=== PATIENT | male | born 1955 | race Caucasian/White ===

== ENCOUNTER 2020-07-18 10:22 | Emergency (ER) | payer BC, MEDICARE, SELFPAY ==
[2020-07-18 10:45] VITALS: BP 116/79; PULSE 86; RESP 16; TEMP 36.4; O2SAT 97; BMI 31.4
--- NOTE | 2020-07-18 10:58 | HMH.EDUTC ---
[facility] [place] Disposition Clinical Impression: Exposure to COVID-19 virus Disposition: Home, Self-Care Condition on Discharge: Good Instructions: Preventing the Spread of Coronavirus Discharge Instructions Additional Instructions: Drink plenty of fluids. Take tylenol or ibuprofen for pain or fever. Follow up with your regular doctor. GO TO THE ER FOR ANY WORSENING SYMPTOMS FOLLOW THE DIRECTIONS ON THE COVID-19 HAND OUT THAT WE GAVE YOU REGARDING SELF-ISOLATION UNTIL YOU KNOW YOUR COVID-19 RESULTS Referrals: Cristopher Gray [Primary Care Provider] - Time of Disposition: 11:03 Medical Decision Making - Medical Records Medical records reviewed: No: I reviewed the patient's medical records. - Jayant Inquiry Pt receiving controlled substance: No Vital Signs: 07/18/20 10:45 07/18/20 11:05 Temperature 97.6 F 97.6 F Temperature Source Oral Pulse Rate 86 Pulse Rate [Right Brachial] 86 Respiratory Rate 16 16 Blood Pressure 116/79 Blood Pressure [Right Arm] 116/79 Blood Pressure Mean [Right Arm] 91 Blood Pressure Source [Right Arm] Automatic Cuff Blood Pressure Position [Right Arm] Sitting 02 Sat by Pulse Oximetry 97 Oxygen Delivery Method Room Air [facility] [place] HPI - General Stated complaint: covid exposure Time Seen by Provider: 07/18/20 10:55 Mode of Arrival: Ambulatory Source of Information: Patient Limitations: No Limitations Description of Symptoms (Recalled from Triage Doc. 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 He denies any symptoms other than a cough that he has had for several weeks. His pcp is treating his cough but he wanted to make sure he doesn't have COVID-19 himself. - Related Data Home Medications Medication Instructions Recorded Confirmed Fenofibrate 160 mg PO DAILY 02/20/19 02/20/19 Fexofenadine HCl [Keena Allergy] 60 mg PO DAILY 02/20/19 02/20/19 Finasteride [Proscar 5mg Tablet] 5 mg PO DAILY 02/20/19 02/20/19 Fluticasone Propionate [Flonase 1 spr NS BID 02/20/19 02/20/19 50mcg nasal spray 16gm] Folic Acid [Folic Acid 1mg tablet] 1 mg PO DAILY 02/20/19 02/20/19 Gabapentin [Gabapentin 300mg Cap] 300 mg PO BID 02/20/19 02/20/19 Levothyroxine Sodium 100 mcg PO DAILY 02/20/19 02/20/19 [Levothyroxine 100mcg (0.1MG) Tab] Rosuvastatin Calcium [Crestor] 10 mg PO DAILY 02/20/19 02/20/19 Sertraline HCl [Zoloft] 50 mg PO DAILY 02/20/19 02/20/19 Tamsulosin HCl [Flomax 0.4mg 0.4 mg PO HS 02/20/19 02/20/19 capsule] Valsartan [Diovan] 160 mg PO DAILY 02/20/19 02/20/19 dilTIAZem HCL [Diltiazem ER] 240 mg PO DAILY 02/20/19 02/20/19 metHOTREXate sodium [metHOTREXate 3 tab PO WEEKLY 02/20/19 02/20/19 2.5mg Tablet] nitrofurantoin macrocrystaL 50 mg PO DAILY 02/20/19 02/20/19 [Nitrofurantoin] Aspirin [Aspir 81] 81 mg PO DAILY 02/21/19 02/21/19 Meloxicam [Qmiiz Odt] 7.5 mg PO NEEDED PRN 02/21/19 02/21/19 Allergies Allergy/AdvReac Type Severity Reaction Status Date / Time Sulfa (Sulfonamide Allergy Intermediate Rash Verified 02/20/19 13:07 Antibiotics) - Worker's Comp Is this a Worker's Comp case?: No H History - Hepatitis A Screen Drug use history?: No High risk sexual behaviors?: No History of sexually transmitted infection?: No Currently employed?: No Childcare worker?: No Do you have indoor plumbing?: Yes Do you have electricity?: Yes Attestation statement:: This patient has been screened for Hepatitis A risk factors. I have reviewed the patient's past medical history: Yes Medical History: Reports:: Hyperlipidemia, Hypertension, I
[2020-07-18 11:05] VITALS: BP 116/79; PULSE 86; RESP 16; TEMP 36.4; O2SAT 97
== END 2020-07-18 11:10 | disposition home or self-care (01) ==
PROVIDERS: Emergency Provider Nurse Practitioner Family; PCP Internal Medicine
DX: Z20.828 Contact with and (suspected) exposure to other viral communicable diseases (principal); E78.5 Hyperlipidemia, unspecified; I10 Essential (primary) hypertension; Z95.0 Presence of cardiac pacemaker; Z88.2 Allergy status to sulfonamides; Z79.899 Other long term (current) drug therapy
CPT/HCPCS: 99201; U0003

== ENCOUNTER 2020-07-28 09:16 | Emergency (ER) | payer BC, MEDICARE, SELFPAY ==
[2020-07-28 09:44] VITALS: BP 152/97; PULSE 84; RESP 14; TEMP 36.9; O2SAT 98; BMI 31.4
--- NOTE | 2020-07-28 10:00 | HMH.EDUTC ---
[facility] [place] Disposition Clinical Impression: Bronchitis Disposition: Home, Self-Care Condition on Discharge: Good Instructions: Acute Bronchitis, DI for Acute Bronchitis Additional Instructions: Drink plenty of fluids. Take tylenol for pain or fever. Take the medications as directed. Follow up with your regular doctor. GO TO THE ER FOR ANY WORSENING SYMPTOMS FOLLOW THE DIRECTIONS ON THE COVID-19 HAND OUT THAT WE GAVE YOU REGARDING SELF-ISOLATION UNTIL YOU KNOW YOUR COVID-19 RESULTS Prescriptions: Promethazine/Dextromethorphan [Promethazine-Dm Syrup] 5 ml PO Q6HP PRN #180 syrup PRN Reason: Cough Transmission Status: Received by [id number] Cefdinir [Omnicef 300mg Capsule] 300 mg PO BID #20 cap Transmission Status: Received by [facility] # [id number] Referrals: Cristopher Gray [Primary Care Provider] - Forms: Work/School Release Time of Disposition: 10:52 Medical Decision Making - Medical Records Medical records reviewed: Yes: I reviewed the patient's medical records. - Jayant Inquiry Pt receiving controlled substance: No Vital Signs: 07/28/20 09:44 07/28/20 11:02 Temperature 98.4 F 98.4 F Temperature Source Oral Pulse Rate 84 Pulse Rate [Right Brachial] 84 Respiratory Rate 14 14 Blood Pressure 152/97 H Blood Pressure [Right Arm] 152/97 H Blood Pressure Mean [Right Arm] 115 Blood Pressure Source [Right Arm] Automatic Cuff Blood Pressure Position [Right Arm] Sitting 02 Sat by Pulse Oximetry 98 Oxygen Delivery Method Room Air - Lab Data Lab Results 07/28/20 10:03: Influenza Type A Ag Negative, Influenza Type B Ag Negative [facility] [place] HPI - General Stated complaint: chill fever Time Seen by Provider: 07/28/20 10:00 Mode of Arrival: Ambulatory Source of Information: Patient Limitations: No Limitations Description of Symptoms (Recalled from Triage Doc. by RN): PATIENT C/O FEVER, COUGH AND CHILLS THAT STARTED YESTERDAY. REQUESTING A FLU AND COVID TEST. DENIES ANY SICK EXPOSURE HEENT Symptoms (Recalled from RN notes): No Resp Symptoms (Recalled from RN notes): No Skin Symptoms (Recalled from RN notes): No MS Symptoms (Recalled from RN notes): No Functional Status (Recalled from RN notes): WNL - History of Present Illness Provider Complaint: He c/o fever (up to 100.6) all day yesterday. He has also been coughing. - Related Data Home Medications Medication Instructions Recorded Confirmed Fenofibrate 160 mg PO DAILY 02/20/19 02/20/19 Fexofenadine HCl [Keena Allergy] 60 mg PO DAILY 02/20/19 02/20/19 Finasteride [Proscar 5mg Tablet] 5 mg PO DAILY 02/20/19 02/20/19 Fluticasone Propionate [Flonase 1 spr NS BID 02/20/19 02/20/19 50mcg nasal spray 16gm] Folic Acid [Folic Acid 1mg tablet] 1 mg PO DAILY 02/20/19 02/20/19 Gabapentin [Gabapentin 300mg Cap] 300 mg PO BID 02/20/19 02/20/19 Levothyroxine Sodium 100 mcg PO DAILY 02/20/19 02/20/19 [Levothyroxine 100mcg (0.1MG) Tab] Rosuvastatin Calcium [Crestor] 10 mg PO DAILY 02/20/19 02/20/19 Sertraline HCl [Zoloft] 50 mg PO DAILY 02/20/19 02/20/19 Tamsulosin HCl [Flomax 0.4mg 0.4 mg PO HS 02/20/19 02/20/19 capsule] Valsartan [Diovan] 160 mg PO DAILY 02/20/19 02/20/19 dilTIAZem HCL [Diltiazem ER] 240 mg PO DAILY 02/20/19 02/20/19 metHOTREXate sodium [metHOTREXate 3 tab PO WEEKLY 02/20/19 02/20/19 2.5mg Tablet] nitrofurantoin macrocrystaL 50 mg PO DAILY 02/20/19 02/20/19 [Nitrofurantoin] Aspirin [Aspir 81] 81 mg PO DAILY 02/21/19 02/21/19 Meloxicam [Qmiiz Odt] 7.5 mg PO NEEDED PRN 02/21/19 02/21/19 Previous Rx's Medication Instructions Recorded Cefdinir [Omnicef 300mg Capsule] 300 mg PO BID #20 cap 07/28/20 Promethazine/Dextromethorphan 5 ml PO Q6HP PRN #180 syrup 10/11/20 [Promethazine-Dm Syrup] Allergies Allergy/AdvReac Type Severity Reaction Status Date / Time Sulfa (Sulfonamide Allergy Intermediate Rash Verified 02/20/19 13:07 Antibiotics) - Worker's Comp Is this a
[2020-07-28 10:04] LABS: UTC Influenza A Antigen Negative (Negative)
[2020-07-28 10:05] LABS: UTC Influenza B Antigen Negative (Negative)
--- NOTE | 2020-07-28 10:14 | XR_ITS ---
PROCEDURE: XR CHEST 2V Referring Doctor: Toan Logan Patient Age:65Y CLINICAL HISTORY: FEVER Started last night. Cough. Nonsmoker. COMPARISON: No exams were available for comparison FINDINGS: PA and lateral chest performed-No previous chest studies comparison diffuse coarsening of lung markings and interstitial markings bilaterally.. A suggestion mild perihilar infiltrate on the right along with suggestion of vague scattered the small focal areas of infiltrate and density at the periphery of the right lung such as suggested projected over anterior right 3rd 4th 5th rib areas. Also patchy infiltrate/density right > left CP angle. Features suspect subtle infiltrate superimposed upon some background chronic changes. Viral pneumonia would be a consideration, including potential covid 19.. It appears a covid testing is pending. Close follow-up suggested Of this heart is upper normal in size with perhaps some mild vascular prominence, mild vascular engorgement.. Chest wall unremarkable but anterior marginal osteophytes are seen throughout the T-spine most evident mid T-spine I reflecting some early degenerative changes but IMPRESSION: Coarsening lung and interstitial markings bilaterally. The Mild interstitial coarsening with suggestion of subtle small patchy areas of infiltrate bilateral, and possible subtle perihilar infiltrate question on right. Some of this appearance could reflect chronic changes, however would be suspect concern regarding developing subtle viral pneumonitis superimposed upon chronic changes. Appropriate testing&follow-up required Dictated by: Navarro Monzon MD 07/28/2020 17:17 Navarro Monzon MD in [place] 07/28/2020 17:17
[2020-07-28 11:02] VITALS: BP 152/97; PULSE 84; RESP 14; TEMP 36.9; O2SAT 98
--- NOTE | 2020-07-28 13:47 | PC.NURSE ---
spoke with pt at this time r/t covid swab results of positive. Pt called per the direction of mono lew pt advised to follow quarantine instructions given at d/c while in [facility] until contacted the health department, pt verbalized understanding.
== END 2020-07-28 11:08 | disposition home or self-care (01) ==
PROVIDERS: Emergency Provider Nurse Practitioner Family; PCP Internal Medicine
DX: U07.1 COVID-19 (principal); Z88.2 Allergy status to sulfonamides; E78.5 Hyperlipidemia, unspecified; I10 Essential (primary) hypertension; E03.9 Hypothyroidism, unspecified; Z95.0 Presence of cardiac pacemaker; Z79.899 Other long term (current) drug therapy
CPT/HCPCS: 71046; 87804; 99202; U0003

== ENCOUNTER → 2020-09-25 10:05 | Outpatient (CLI) | payer BC, MEDICARE, SELFPAY ==
--- NOTE | 2020-09-25 10:14 | XR_ITS ---
PROCEDURE: XR CHEST 2V CLINICAL HISTORY: CHRONIC COUGH, S/P COVID-19 PNEUMONIA COMPARISON: CR XR CHEST 2V from 07/28/2020 FINDINGS: The cardiomediastinal silhouette and pulmonary vascularity are within normal limits. There are changes of COPD with pulmonary fibrosis with coarsening of the interstitial markings as before. No lobar consolidation or collapse. No effusions. No acute bony abnormalities. IMPRESSION: Chronic interstitial changes. Overall no change with no acute finding Dictated by: Jase Arriaza 09/25/2020 10:42 Jase Arriaza in [place] 09/25/2020 10:42
--- NOTE | 2020-09-25 10:15 | XR_ITS ---
PROCEDURE: XR LUMBAR SPINE MIN 4V CLINICAL INDICATION: S/P FALLS/LBP Low back pain following injury COMPARISON: CR XR CHEST 2V from 07/28/2020 FINDINGS: There are postsurgical changes with inter pedicular screws at L4 and L5. No metallic connecting christiano is evident. There is minimal anterolisthesis of L4 on L5 4 mm. There is mild degenerative disc disease from L1-L5. There is mild wedging of L1-L2 and L3 which is age indeterminate.. There is some anterior spurring at L3 and L4. There is also minimal loss of height anteriorly of L2. No retropulsion. IMPRESSION: Postsurgical changes and degenerative changes. There is mild wedging of L1-L2 and L3 which are age indeterminate. No retropulsion. MRI may provide further evaluation to determine if these compression changes are acute or chronic. Dictated by: Jase Arriaza 09/25/2020 10:45 Jase Arriaza in [place] 09/25/2020 10:45
== END ==
PROVIDERS: PCP Internal Medicine; Visit Provider Internal Medicine
DX: R05 Cough (principal); M54.5 Low back pain; E88.89 Other specified metabolic disorders; Z86.19 Personal history of other infectious and parasitic diseases
CPT/HCPCS: 71046; 72110

== ENCOUNTER → 2020-10-01 08:05 | Outpatient (CLI) | payer BC, MEDICARE, SELFPAY ==
--- NOTE | 2020-10-01 08:07 | CT_ITS ---
PROCEDURE: CT CHEST WO CON CLINICAL INDICATION: CHRONIC COUGH Covid+ in July, ILD NO PRIOR COMPARISON: CR XR CHEST 2V from 09/25/2020 TECHNIQUE: Axial images obtained with sagittal and coronal reformats. All CT scans at the facility use one or more dose reduction, viz: automated exposure control, ma/kV adjustment per patient size (including targeted exams where dose is matched to indication, i.e. head), or iterative reconstruction technique. High-resolution images are also submitted for evaluation. FINDINGS: There are few scattered small mediastinal and hilar lymph nodes. Coronary artery calcifications are present. No mediastinal or hilar mass. There are scattered peripheral subpleural areas of pulmonary fibrotic changes noted. High-resolution images demonstrates some minimal basilar interlobular septal thickening. No lobar consolidation or collapse. Any of these areas could obscure a developing nodule. There is a small rounded noncalcified pulmonary nodule in the left lower lobe image 41 series 2 which measures 6 mm. In addition, there is a 5 mm noncalcified nodule in the left lower lobe image 29 series 2 There are degenerative changes in the thoracic spine with DISH of the midthoracic spine. There is mild wedging involving the T7 vertebral body which appears chronic. IMPRESSION: COPD with pulmonary fibrosis with some mild interlobular septal thickening. There are 2 noncalcified pulmonary nodules in the left lower lobe at 5 and 6 mm. Six-month follow-up suggested to confirm short term stability. Dictated by: Jase Arriaza MD 10/02/2020 11:33 Jase Arriaza MD in [place] 10/02/2020 11:33
== END ==
PROVIDERS: PCP Internal Medicine; Visit Provider Internal Medicine
DX: R05 Cough (principal)
CPT/HCPCS: 71250

== ENCOUNTER → 2020-10-25 10:18 | Outpatient (CLI) | payer BC, MEDICARE, SELFPAY ==
[2020-10-25 12:05] LABS: Erythrocyte Sedimentation Rate 12 mm/hr (0-20)
[2020-10-25 13:10] LABS: Uric Acid 6.5 mg/dl (3.5-8.5)
[2020-10-25 13:16] LABS: C-Reactive Protein 2.6 mg/L (0-4)
[2020-10-26 18:29] LABS: RA Latex Turbid. <10.0 IU/mL (0.0-13.9)
[2020-10-28 15:15] LABS: Antinuclear Antibodies, IFA Negative (.)
[2020-10-29 10:49] LABS: Anti-Cyclic Citrullinated Pept 10 units (0-19)
[2020-10-31 13:07] LABS: Antinuclear Antibodies (ANA) NEGATIVE
== END ==
PROVIDERS: Visit Provider Internal Medicine Pulmonary Disease
DX: R06.00 Dyspnea, unspecified (principal); J84.9 Interstitial pulmonary disease, unspecified
CPT/HCPCS: 36415; 84550; 85651; 86038; 86140; 86200; 86225; 86235; 86431

== ENCOUNTER 2020-11-23 10:11 | Emergency (ER) | payer BC, MEDICARE, SELFPAY ==
[2020-11-23 10:25] VITALS: BP 135/84; PULSE 78; RESP 20; TEMP 36.6; O2SAT 100; BMI 29.2
--- NOTE | 2020-11-23 10:38 | HMH.EDUTC ---
[facility] [place] Clinical Impression: Bilateral otitis media Qualifiers: Otitis media type: suppurative Chronicity: acute Recurrence: recurrent Spontaneous tympanic membrane rupture: without spontaneous rupture Qualified Code(s): H66.006 - Acute suppurative otitis media without spontaneous rupture of ear drum, recurrent, bilateral Disposition: Home, Self-Care Condition on Discharge: Good Instructions: DI for Otitis Media (Middle Ear Infection)-Child Prescriptions: methylPREDNISolone [Medrol 4mg tab] 4 mg PO DIRECTED #21 tab Transmission Status: Pending to [id number] Cefdinir [Omnicef 300mg Capsule] 300 mg PO BID #20 cap Transmission Status: Pending to [id number] Referrals: Cristopher Gray [Primary Care Provider] - Time of Disposition: 10:57 Medical Decision Making - Jayant Inquiry Pt receiving controlled substance: No Orders (Tests/Meds): ORDERS Category Date Time Status Covid-19 Nasal PCR ([facility]) Routine Lab 11/23/20 10:27 Ordered [facility] [place] - General Stated complaint: headache Time Seen by Provider: 11/23/20 10:38 - History of Present Illness Provider Complaint: Patient has had ear fullness and sinus congestion for over a week. He is currently taking Amoxil and Prednisone. Takes Keena, nasal spray and inhaler daily as well. He states he felt a little better at first, but doesn't really feel better now. He feels clammy but no fever. Has appt with Isaac and Dr Singh later this month for f/u. Onset (ago): week(s) (1) Relieving factors: none Exacerbating factors: none Associated symptoms: denies other symptoms Treatments prior to arrival: other (Amoxil, Keena, nasal spray, cough med, Prednisone) - Related Data Home Medications Medication Instructions Recorded Confirmed Fenofibrate 160 mg PO DAILY 02/20/19 10/21/20 Fexofenadine HCl [Keena Allergy] 60 mg PO DAILY 02/20/19 02/20/19 Finasteride [Proscar 5mg Tablet] 5 mg PO DAILY 02/20/19 02/20/19 Fluticasone Propionate [Flonase 1 spr NS BID 02/20/19 10/21/20 50mcg nasal spray 16gm] Folic Acid [Folic Acid 1mg tablet] 1 mg PO DAILY 02/20/19 10/21/20 Gabapentin [Gabapentin 300mg Cap] 300 mg PO BID 02/20/19 10/21/20 Levothyroxine Sodium 100 mcg PO DAILY 02/20/19 10/21/20 [Levothyroxine 100mcg (0.1MG) Tab] Rosuvastatin Calcium [Crestor] 10 mg PO DAILY 02/20/19 02/20/19 Sertraline HCl [Zoloft] 50 mg PO DAILY 02/20/19 10/21/20 Tamsulosin HCl [Flomax 0.4mg 0.4 mg PO HS 02/20/19 02/20/19 capsule] Valsartan [Diovan] 160 mg PO DAILY 02/20/19 02/20/19 dilTIAZem HCL [Diltiazem ER] 240 mg PO DAILY 02/20/19 10/21/20 metHOTREXate sodium [metHOTREXate 3 tab PO WEEKLY 02/20/19 10/21/20 2.5mg Tablet] nitrofurantoin macrocrystaL 50 mg PO DAILY 02/20/19 10/21/20 [Nitrofurantoin] Aspirin [Aspir 81] 81 mg PO DAILY 02/21/19 10/21/20 Meloxicam [Qmiiz Odt] 7.5 mg PO NEEDED PRN 02/21/19 02/21/19 Previous Rx's Medication Instructions Recorded Cefdinir [Omnicef 300mg Capsule] 300 mg PO BID #20 cap 07/28/20 Promethazine/Dextromethorphan 5 ml PO Q6HP PRN #180 syrup 07/28/20 [Promethazine-Dm Syrup] albuterol sulfate 90 mcg/actuation 1 inh INHALATION QID PRN #8.5 g 10/21/20 aerosol inhaler Cefdinir [Omnicef 300mg Capsule] 300 mg PO BID #20 cap 11/23/20 methylPREDNISolone [Medrol 4mg 4 mg PO DIRECTED #21 tab 11/23/20 tab] Allergies Allergy/AdvReac Type Severity Reaction Status Date / Time Sulfa (Sulfonamide Allergy Intermediate Rash Verified 02/20/19 13:07 Antibiotics) [facility] History - Hepatitis A Screen Attestation statement:: This patient has been screened for Hepatitis A risk factors. I have reviewed the patient's past medical history: Yes Medical History: Reports:: Hyperlipidemia, Hypertension, Internal Pacemaker Denies:: Diabetes Mellitus Type 1, Diabetes Mellitus Type 2, Lung Disease, Seizures Other Medical History: Reports: Hypothyroidism Laterality Cases: Left: Arthroscopy Kn
[2020-11-23 11:00] LABS: UTC Influenza A Antigen Negative (Negative); UTC Influenza B Antigen Negative (Negative)
[2020-11-23 11:02] VITALS: BP 135/84; PULSE 78; RESP 20; TEMP 36.6; O2SAT 100
--- NOTE | 2020-11-23 13:57 | PC.NURSE ---
PT NOTIFIED OF POSITIVE COVID RESULT
== END 2020-11-23 11:20 | disposition home or self-care (01) ==
PROVIDERS: Emergency Provider Physician Assistant; PCP Internal Medicine
DX: U07.1 COVID-19 (principal); H66.006 Acute suppurative otitis media without spontaneous rupture of ear drum, recurrent, bilateral; E78.5 Hyperlipidemia, unspecified; I10 Essential (primary) hypertension; E03.9 Hypothyroidism, unspecified; Z95.0 Presence of cardiac pacemaker; Z79.899 Other long term (current) drug therapy
CPT/HCPCS: 87804; 99202; G0463; J1030; U0003

== ENCOUNTER → 2020-11-26 10:44 | Outpatient (CLI) | payer BC, MEDICARE, SELFPAY ==
[2020-11-26] VITALS (9 sets, daily range): BP systolic 117–137; BP diastolic 70–87; PULSE 66–93; RESP 14–18; TEMP 36.3–37.1; O2SAT 92–98
== END ==
PROVIDERS: PCP Internal Medicine; Visit Provider Family Medicine
DX: U07.1 COVID-19 (principal)
CPT/HCPCS: 96365

== ENCOUNTER → 2020-12-19 08:17 | Outpatient (CLI) | payer BC, MEDICARE, SELFPAY ==
--- NOTE | 2020-12-19 08:17 | CT_ITS ---
PROCEDURE: CT SINUS WO CON CLINICAL HISTORY: Sinusitis Bilat ear infections Covid+ in 2019 and 2020 No prior COMPARISON: No exams were available for comparison TECHNIQUE: Axial images obtained with sagittal and coronal reformats. All CT scans at the facility use one or more dose reduction, viz: automated exposure control, ma/kV adjustment per patient size (including targeted exams where dose is matched to indication, i.e. head), or iterative reconstruction technique. FINDINGS: The frontal sinuses unremarkable. There is mild mucosal thickening of the ethmoid sinuses. Minimal mucosal thickening involves the left maxillary sinus. Unremarkable appearing sphenoid sinus. There is mild nasal septal deviation toward the left. The ostiomeatal units are patent. There is minimal mucosal thickening of the right maxillary sinus just inferior to the ostiomeatal complex. No sinus air-fluid levels. Scattered small nodes are present in the neck. The orbits have an unremarkable appearance as do the TMJs. IMPRESSION: 1. No evidence of acute sinusitis. 2. Minimal mucosal thickening of the ethmoid and maxillary sinuses with mild leftward nasal septal deviation Dictated by: Jase Arriaza MD 12/20/2020 06:46 Jase Arriaza MD in [place] 12/20/2020 06:46
--- NOTE | 2020-12-19 11:10 | PC.NURSE ---
PFT and 6 minute walk completed on Pt without incident. Albuterol 0.083% given via Hand Held Nebulizer per writting protocol, Pt tolerated tx well.
== END ==
PROVIDERS: PCP Internal Medicine; Visit Provider Internal Medicine Pulmonary Disease
DX: J32.9 Chronic sinusitis, unspecified (principal); R06.00 Dyspnea, unspecified
CPT/HCPCS: 70486; 94060; 94618; 94726; 94729

== ENCOUNTER → 2020-12-26 12:40 | Outpatient (CLI) | payer BC, MEDICARE, SELFPAY ==
--- NOTE | 2020-12-26 12:41 | NM_ITS ---
PROCEDURE: NM PUL VENT AND PERFUSE CLINICAL INDICATION: Hypoxia History of Covid19 COMPARISON: CT CT CHEST WO CON from 12/30/2020 TECHNIQUE: Dose 31.3 mCi technetium DTPA inhaled 7.86 mCi technetium MAA IV FINDINGS: There was normal perfusion with no defects apparent. There is decreased activity in both lungs suggesting poor ventilation. IMPRESSION: No evidence of pulmonary embolus. Dictated by: Jase Arriaza MD 02/07/2021 13:31 Jase Arriaza MD in [place] 02/07/2021 13:31
--- NOTE | 2020-12-26 14:32 | XR_ITS ---
PROCEDURE: XR CHEST 2V CLINICAL HISTORY: sob Shortness of breath and cough COMPARISON: CR XR CHEST 2V from 07/28/2020 CR XR CHEST 2V from 09/25/[address] CHEST WO CON from 10/01/2020 FINDINGS: The cardiomediastinal silhouette and pulmonary vascularity are within normal limits. There is diffuse pulmonary interstitial fibrotic changes. Findings appear slightly worse in the right upper and lower lobe which could be due to superimposed infection or worsening of pulmonary fibrosis. No acute bony abnormalities. No obvious effusions. IMPRESSION: Diffuse pulmonary fibrosis which appears slightly worse on the right Dictated by: Jase Arriaza MD 12/26/2020 16:24 Jase Arriaza MD in [place] 12/26/2020 16:24
== END ==
PROVIDERS: PCP Internal Medicine; Visit Provider Internal Medicine Pulmonary Disease
DX: R06.02 Shortness of breath (principal); J84.9 Interstitial pulmonary disease, unspecified; R94.2 Abnormal results of pulmonary function studies
CPT/HCPCS: 71046; 78582; A9540; A9567

== ENCOUNTER → 2020-12-30 13:35 | Outpatient (CLI) | payer BC, MEDICARE, SELFPAY ==
--- NOTE | 2020-12-30 13:38 | CA_ITS ---
APPROVED REPORT EXAM: Comprehensive 2D, Doppler, and color-flow Echocardiogram Medical Billing Representative: Alejandra Brown, RT(R) Ht: 5 ft 11 in Wt: 214lbs BSA: 2.17 BP: 104/67 mmHg Indications: SOB, Post covid, HTN, hyperlipidemia 2D Dimensions LVOT 2.62 cm (M/F) 1.5-2.5 M-Mode Dimensions RVDd 2.68 cm (0.9-2.6) LA Diam 3.15 cm (1.9-4.0) LVDd 5.35 cm (3.5-5.7) Ao Diam 1.53 cm (2.0-3.7) LVDs 3.95 cm (3.5-5.7) IVSd 0.93 cm (0.6-1.1) PWd 0.85 cm (0.6-1.1) EF (Teich) 50.90% FS 26.20% EDV (Teich) 138.30 mL ESV (Teich) 67.90 mL LV Diastology E Decel Time 180.00 (160-240 msec) E/A Ratio 0.7 MED E' 5.00 (< 7 cm/sec) E'/MED E' Ratio 13.30 (>14) LAT E' 7.40 (<10 cm/sec) E/LAT E' Ratio 8.99 (>14) Mitral Valve MV E Max [place]. 66.00 (40-130 cm/s) MV A Velocity 94.00 (40-130 cm/s) E/A Ratio 0.71 MV Decel. Time 180.00 (160-240 ms) MV PHT 53.00 ms Left Ventricle Left atrium is mildly enlarged, left ventricle is normal size, mild concentric left ventricular hypertrophy, visually estimated ejection fraction 55% with no regional wall motion abnormality, grade 1 diastolic dysfunction seen without tissue Doppler evidence of raise left atrial pressure. Right Ventricle Right atrium and right ventricle are normal size and contractility. Aortic Valve Aortic valve is minimally thickened and fibrosed, there is no aortic stenosis or aortic insufficiency. Mitral Valve Mitral valve grossly normal, there is trace mitral regurgitation. Tricuspid Valve Tricuspid grossly normal, there is trace tricuspid regurgitation, tricuspid regurgitation jet velocity is inadequate for calculation of the right ventricular systolic pressure. Pulmonic Valve Pulmonic valve is poorly visualized. Great Vessels Aortic root is normal size. Pericardium No significant pericardial effusion noted. Conclusion 1. Mildly enlarged left atrium, normal left ventricular size, mild concentric left ventricular hypertrophy, visually estimated ejection fraction 55% with no regional wall motion abnormality, grade 1 diastolic dysfunction seen without tissue Doppler evidence of raise left atrial pressure. 2. Trace mitral and tricuspid regurgitation. 3. No significant pericardial effusion noted. Electronically signed by : Alexandro Rodríguez, 12/30/2020 21:41:11
--- NOTE | 2020-12-30 13:44 | CT_ITS ---
PROCEDURE: CT CHEST WO CON CLINICAL INDICATION: ILD Shortness of air, history of Covid19, evaluate for interstitial lung disease COMPARISON: CT CT CHEST WO CON from 10/01/2020 TECHNIQUE: Axial images obtained with sagittal and coronal reformats. All CT scans at the facility use one or more dose reduction, viz: automated exposure control, ma/kV adjustment per patient size (including targeted exams where dose is matched to indication, i.e. head), or iterative reconstruction technique. FINDINGS: There are scattered mildly prominent mediastinal and hilar lymph nodes. These do not appear significantly changed. Coronary artery calcifications are present. Peripheral fibrotic and/or atelectatic changes are present in both upper and lower lobes. There is some minimal consolidation in the right middle lobe inferiorly not significantly changed. There is also some unchanged peripheral consolidation in the right lower lobe posteriorly and in the lingula. No effusions are evident. No areas of cavitation. There is some minimal honeycombing in the right middle lobe medially. Mild bronchial dilatation is present in the right lower lobe posteriorly. The left lower lobe nodules are not significantly changed. No acute bony findings. Degenerative changes are present in the thoracic spine. There is mild chronic wedging of T7. IMPRESSION: Pulmonary fibrotic changes which are overall not significantly changed. There is some minimal bronchiectasis in the right lower lobe. No change in the 2 left lower lobe nodules. Mild mediastinal and hilar adenopathy unchanged Dictated by: aJse Arriaza MD 01/02/2021 09:56 Jase Arriaza MD in [place] 01/02/2021 09:56
== END ==
PROVIDERS: PCP Internal Medicine; Visit Provider Internal Medicine Pulmonary Disease
DX: R06.01 Orthopnea (principal); J84.9 Interstitial pulmonary disease, unspecified
CPT/HCPCS: 71250; 93306; 94762

== ENCOUNTER → 2021-01-16 15:26 | Outpatient (CLI) | payer BC, MEDICARE, SELFPAY ==
[2021-01-20 19:41] LABS: Cytoplasmic (C-ANCA) <1:20 titer (Neg:<1:20)
[2021-01-20 23:56] LABS: Perinuclear (P-ANCA) <1:20 titer (Neg:<1:20)
[2021-01-22 03:37] LABS: D001-IgE D pteronyssinus <0.10 kU/L (Class 0); D002-IgE D farinae <0.10 kU/L (Class 0); E001-IgE Cat Dander <0.10 kU/L (Class 0); E005-IgE Dog Dander <0.10 kU/L (Class 0); G002-IgE Bermuda Grass <0.10 kU/L (Class 0); G006-IgE Timothy Grass <0.10 kU/L (Class 0); I006-IgE Cockroach, German <0.10 kU/L (Class 0); Immunoglobulin E, Total 161 IU/mL (6-495); M001-IgE Penicillium chrysogen <0.10 kU/L (Class 0); M002-IgE Cladosporium herbarum <0.10 kU/L (Class 0); M003-IgE Aspergillus fumigatus <0.10 kU/L (Class 0); M006-IgE Alternaria alternata <0.10 kU/L (Class 0); T001-IgE Maple/Box Elder <0.10 kU/L (Class 0); T003-IgE Common Silver Birch <0.10 kU/L (Class 0); T006-IgE Cedar, Mountain <0.10 kU/L (Class 0); T007-IgE Oak, White <0.10 kU/L (Class 0); T008-IgE Elm, American <0.10 kU/L (Class 0); T010-IgE Walnut <0.10 kU/L (Class 0); T011-IgE Maple Leaf Sycamore <0.10 kU/L (Class 0); T014-IgE Cottonwood <0.10 kU/L (Class 0); T015-IgE Ash, White <0.10 kU/L (Class 0); T022-IgE Pecan, Hickory <0.10 kU/L (Class 0); T070-IgE White Mulberry <0.10 kU/L (Class 0); W001-IgE Ragweed, Short <0.10 kU/L (Class 0); W011-IgE Thistle, Russian <0.10 kU/L (Class 0); W014-IgE Pigweed, Common <0.10 kU/L (Class 0); W018-IgE Sheep Sorrel <0.10 kU/L (Class 0)
[2021-01-22 13:53] LABS: Aspergillus fumigatus IgG Negative (Negative)
[2021-01-22 17:14] LABS: E072-IgE Mouse Urine <0.10 kU/L (Class 0); Pigeon Serum Abs Negative (Negative)
== END ==
PROVIDERS: Visit Provider Internal Medicine Pulmonary Disease
DX: J44.9 Chronic obstructive pulmonary disease, unspecified (principal); J98.4 Other disorders of lung
CPT/HCPCS: 36415; 82785; 86003; 86256; 86331; 86602; 86606; 86609

== ENCOUNTER → 2021-01-20 10:40 | Outpatient (CLI) | payer BC, MEDICARE, SELFPAY ==
[2021-01-20 12:06] LABS: Coronavirus 19 IgG Antibody Positive (Negative); Coronavirus 19 IgM Antibody Negative (Negative)
== END ==
PROVIDERS: Visit Provider Internal Medicine Pulmonary Disease
DX: Z01.818 Encounter for other preprocedural examination (principal); Z20.822 Contact with and (suspected) exposure to COVID-19
CPT/HCPCS: 36415; 86328

== ENCOUNTER → 2021-01-21 19:40 | Outpatient (CLI) | payer BC, MEDICARE, SELFPAY | PROVIDERS: PCP Internal Medicine; Visit Provider Internal Medicine Pulmonary Disease | DX: G47.34 Idiopathic sleep related nonobstructive alveolar hypoventilation (principal); J84.9 Interstitial pulmonary disease, unspecified; G47.33 Obstructive sleep apnea (adult) (pediatric) | CPT/HCPCS: 95810 ==

== ENCOUNTER → 2021-02-19 07:45 | Outpatient (CLI) | payer BC, MEDICARE, SELFPAY | PROVIDERS: PCP Internal Medicine; Visit Provider Internal Medicine Pulmonary Disease | DX: R06.00 Dyspnea, unspecified (principal); J84.9 Interstitial pulmonary disease, unspecified | CPT/HCPCS: 94060; 94726; 94729 ==

== ENCOUNTER 2021-03-20 09:48 | Outpatient (RCR) | payer BC, MEDICARE, SELFPAY | END 2021-08-27 10:35 | disposition home or self-care (01) | LOC: PT 09:48 | PROVIDERS: Visit Provider Internal Medicine Pulmonary Disease | DX: J84.9 Interstitial pulmonary disease, unspecified (principal); Z86.16 Personal history of COVID-19 | CPT/HCPCS: G0237; G0238; G0239 ==

== ENCOUNTER → 2021-05-15 10:42 | Outpatient (CLI) | payer BC, MEDICARE, SELFPAY ==
[2021-05-15 11:39] LABS: Erythrocyte Sedimentation Rate 16 mm/hr (0-20)
[2021-05-15 11:57] LABS: Creatine Kinase 104 U/L (55-170)
[2021-05-15 12:03] LABS: C-Reactive Protein 0.7 mg/L (0-4)
[2021-05-16 11:12] LABS: Alpha-1-Antitrypsin 121 mg/dL (101-187)
[2021-05-16 13:10] LABS: Anti-DNA (DS) Ab Qn <1 IU/mL (0-9); Antiribosomal P Antibodies <0.2 AI (0.0-0.9); Antiscleroderma-70 Antibodies 1.3 AI (0.0-0.9); RNP Antibodies <0.2 AI (0.0-0.9); Sjogren's Anti-SS-A <0.2 AI (0.0-0.9); Sjogren's Anti-SS-B <0.2 AI (0.0-0.9)
[2021-05-16 18:03] LABS: Aldolase 6.1 U/L (3.3-10.3)
[2021-05-18 21:07] LABS: Antiproteinase 3 (PR-3) Abs <3.5 U/mL (0.0-3.5); Myeloperoxidase Antibody <9.0 U/mL (0.0-9.0)
[2021-05-20 16:13] LABS: Strongyloides IgG Antibody Negative (Negative)
== END ==
PROVIDERS: Visit Provider Internal Medicine Pulmonary Disease
DX: R06.00 Dyspnea, unspecified (principal); J84.10 Pulmonary fibrosis, unspecified; J84.9 Interstitial pulmonary disease, unspecified; D72.19 Other eosinophilia; J44.9 Chronic obstructive pulmonary disease, unspecified
CPT/HCPCS: 36415; 82085; 82103; 82550; 83516; 83520; 85651; 86140; 86225; 86235; 86682

== ENCOUNTER → 2021-07-22 10:08 | Outpatient (CLI) | payer BC, MEDICARE, SELFPAY ==
[2021-07-22 10:29] LABS: Basophils # 0.1 K/mm3 (0-0.2); Basophils % 0.8 % (0.1-2.0); Eosinophils # 0.4 K/mm3 (0.0-0.4); Eosinophils % 3.6 % (0.1-12.0); Hematocrit 47.2 % (42.0-52.0); Hemoglobin 16.3 g/dL (14.1-18.0); Lymphocytes # 3.3 K/mm3 (0.7-4.5); Lymphocytes % 29.9 % (10-50); Mean Corpuscular HGB Conc 34.5 g/dL (31.8-35.4); Mean Corpuscular Hemoglobin 31.7 pg (27.0-31.2); Mean Corpuscular Volume 91.8 fl (80-94); Mean Platelet Volume 7.9 fl (7.4-10.4); Monocytes # 0.6 K/mm3 (0.1-1.0); Monocytes % 5.2 % (1.7-9.3); Neutrophils # 6.8 K/mm3 (1.8-7.8); Neutrophils % 60.6 % (37.0-80.0); Platelet Count 230 K/mm3 (142-424); Red Blood Count 5.14 M/mm3 (4.60-6.20); Red Cell Distribution Width 12.8 % (11.5-17.5); White Blood Count 11.2 K/mm3 (4.8-10.8)
[2021-07-22 11:00] LABS: Hemoglobin A1C 6.1 % (4.0-6.0)
[2021-07-22 11:06] LABS: Alanine Aminotransferase 28 U/L (12-78); Albumin Level 3.9 g/dl (3.5-5.0); Albumin/Globulin Ratio 1.5 (1.1-1.8); Alkaline Phosphatase 84 U/L (38-126); Aspartate Amino Transferase 24 U/L (17-59); Bilirubin,Total 0.6 mg/dl (0.2-1.3); Blood Urea Nitrogen 13 mg/dl (9-20); Carbon Dioxide 30 mmol/L (22.0-30.0); Chloride 103 mmol/L (98-107); Chol/HDL Ratio 2.5 (1-3.5); Cholesterol 115 mg/dl (140-200); Estimated Glomerular Filt Rate 112 ml/min (>60); GFR (African American) 136 ML/MIN (>60); Globulin 2.6 g/dL (1.3-3.2); Glucose 113 mg/dl (74-100); HDL Cholesterol 46 mg/dl (40-60); Sodium 140 mmol/L (136-145); Total Protein,Serum 6.5 g/dl (6.3-8.2); Triglycerides 148 mg/dl (30-150); VLDL Cholesterol 30 mg/dL (0-40)
[2021-07-22 11:12] LABS: C-Reactive Protein 1.5 mg/L (0-4)
[2021-07-22 11:36] LABS: Thyroid Stimulating Hormone 0.73 uIU/mL (0.465-4.68)
== END ==
PROVIDERS: Internal Medicine Pulmonary Disease; Visit Provider Internal Medicine
DX: R06.00 Dyspnea, unspecified (principal); I10 Essential (primary) hypertension; E78.5 Hyperlipidemia, unspecified; E03.9 Hypothyroidism, unspecified; Z79.899 Other long term (current) drug therapy
CPT/HCPCS: 36415; 80053; 80061; 83036; 84443; 85025; 86140

== ENCOUNTER → 2021-10-22 12:15 | Outpatient (CLI) | payer BC, MEDICARE, SELFPAY ==
[2021-10-22 13:35] VITALS: PULSE 76; PULSE 79
--- NOTE | 2021-10-22 14:07 | CT_ITS ---
FINAL REPORT CLINICAL HISTORY: . covid. lung scaring FINDINGS: HIGH-RESOLUTION CT CHEST Thin section axial CT using high resolution technique. Routine imaging was also supplemented with the high-resolution images. The patient was scanned supine on inspiration, supine and expiration, and proton on inspiration. FINDINGS: Supine inspiration images demonstrate multiple coarse linear densities in both lungs consistent with diffuse pulmonary scarring. Supine expiration images demonstrate crowding of the linear densities. No definite evidence of air trapping is seen. On the prone inspiration imaging, scarring persists at the lung bases, more evident on the right than left. No pleural or pericardial effusion is seen . There is mild mediastinal adenopathy which is probably reactive. Limited images of the upper abdomen demonstrate the patient is status post cholecystectomy. IMPRESSION: Bilateral pulmonary scarring without significant air trapping. Reviewed, Interpreted and Dictated by Spnecer Godfrey MD Transcribed by Janett Rubin Authenticated by Spencer Godfrey MD on 10/22/2021 03:54:38 PM [facility]
== END ==
PROVIDERS: PCP Internal Medicine; Visit Provider Internal Medicine Pulmonary Disease
DX: R06.00 Dyspnea, unspecified (principal); R06.02 Shortness of breath
CPT/HCPCS: 71250; 94060; 94618; 94640; 94727; 94729

== ENCOUNTER → 2021-12-16 09:39 | Outpatient (CLI) | payer BC, MEDICARE, SELFPAY | PROVIDERS: PCP Internal Medicine; Visit Provider Internal Medicine Pulmonary Disease | DX: R06.00 Dyspnea, unspecified (principal) | CPT/HCPCS: 94762 ==

== ENCOUNTER → 2022-01-05 13:36 | Outpatient (CLI) | payer BC, MEDICARE, SELFPAY ==
[2022-01-05 15:18] LABS: Basophils # 0.1 K/mm3 (0-0.2); Basophils % 0.7 % (0.1-2.0); Eosinophils # 0.5 K/mm3 (0.0-0.4); Eosinophils % 6.4 % (0.1-12.0); Hematocrit 46.5 % (42.0-52.0); Hemoglobin 15.1 g/dL (14.1-18.0); Mean Corpuscular HGB Conc 32.6 g/dL (31.8-35.4); Mean Corpuscular Hemoglobin 30.4 pg (27.0-31.2); Mean Corpuscular Volume 93.3 fl (80-94); Mean Platelet Volume 8.6 fl (7.4-10.4); Monocytes # 0.4 K/mm3 (0.1-1.0); Monocytes % 4.8 % (1.7-9.3); Neutrophils # 5.2 K/mm3 (1.8-7.8); Neutrophils % 64.2 % (37.0-80.0); Platelet Count 232 K/mm3 (142-424); Red Blood Count 4.98 M/mm3 (4.60-6.20); Red Cell Distribution Width 12.9 % (11.5-17.5); White Blood Count 8.2 K/mm3 (4.8-10.8)
[2022-01-05 16:27] LABS: Chloride 104 mmol/L (98-107)
[2022-01-05 16:28] LABS: Potassium 4.3 mmoL/L (3.5-5.1); Sodium 138 mmol/L (136-145)
[2022-01-05 16:30] LABS: Alanine Aminotransferase 27 U/L (12-78); Alkaline Phosphatase 81 U/L (38-126); Anion Gap 7.3 mEq/L (5-15); Aspartate Amino Transferase 32 U/L (17-59); Bilirubin,Total 0.6 mg/dl (0.2-1.3); Blood Urea Nitrogen 19 mg/dl (9-20); Carbon Dioxide 31 mmol/L (22.0-30.0); Cholesterol 121 mg/dl (140-200); Estimated Glomerular Filt Rate 96 ml/min (>60); GFR (African American) 116 ML/MIN (>60); Triglycerides 140 mg/dl (30-150); VLDL Cholesterol 28 mg/dL (0-40)
[2022-01-05 16:31] LABS: Albumin Level 3.7 g/dl (3.5-5.0); Albumin/Globulin Ratio 1.7 (1.1-1.8); Calcium 8.1 mg/dl (8.4-10.2); Globulin 2.2 g/dL (1.3-3.2); Glucose 96 mg/dl (74-100); HDL Cholesterol 40 mg/dl (40-60); Total Protein,Serum 5.9 g/dl (6.3-8.2)
[2022-01-05 16:42] LABS: Direct LDL Cholesterol 62.71 mg/dL (100-129)
[2022-01-05 16:59] LABS: Thyroid Stimulating Hormone 6.66 uIU/mL (0.465-4.68)
[2022-01-05 18:01] LABS: Prostate Specific Ag Screen 1.4 ng/ml (0.0-4.0)
[2022-01-05 18:19] LABS: Vitamin B12 435 pg/mL (239-931)
== END ==
PROVIDERS: Visit Provider Internal Medicine
DX: I10 Essential (primary) hypertension (principal); E03.9 Hypothyroidism, unspecified; E78.5 Hyperlipidemia, unspecified; R27.0 Ataxia, unspecified; N40.1 Benign prostatic hyperplasia with lower urinary tract symptoms; Z12.5 Encounter for screening for malignant neoplasm of prostate
CPT/HCPCS: 80053; 80061; 82607; 84443; 85025; G0103

== ENCOUNTER → 2022-02-10 11:05 | Outpatient (POV) | payer BC, MEDICARE, SELFPAY | PROVIDERS: Visit Provider Dermatology | DX: Z00.00 Encounter for general adult medical examination without abnormal findings (principal) ==

== ENCOUNTER → 2022-03-10 17:09 | Outpatient (CLI) | payer BC, MEDICARE, SELFPAY ==
[2022-03-10 20:20] LABS: Thyroid Stimulating Hormone 0.95 uIU/mL (0.465-4.68)
== END ==
PROVIDERS: PCP Internal Medicine; Visit Provider Internal Medicine
DX: E03.9 Hypothyroidism, unspecified (principal)
CPT/HCPCS: 84443

== ENCOUNTER 2022-05-08 18:29 | Emergency (ER) | payer BC, MEDICARE, SELFPAY ==
[2022-05-08 18:59] VITALS: BP 178/98; PULSE 87; RESP 18; TEMP 36.8; O2SAT 96; BMI 29.2
[2022-05-08 19:04] VITALS: BP 178/98; PULSE 87; RESP 16; TEMP 36.8; O2SAT 96
--- NOTE | 2022-05-08 19:04 | HMH.EDUTC ---
[facility] [place] Clinical Impression: Encounter for laboratory testing for COVID-19 virus Disposition: Home, Self-Care Condition on Discharge: Good Instructions: DI for COVID-19 (Suspected or Confirmed ), Preventing the Spread of Coronavirus Discharge Instructions Additional Instructions: *Monitor Temp, Over the counter Motrin or Tylenol as directed/as needed Tylenol every 4 hours and Motrin every 6 hours (as long as your family doctor has told you that you can take it) for fever or pain. and straight to ER if unable to lower temp less than 101.0 after medication given *Warm salt water gargles may help to soothe the throat *Throat Lozenges *Warm fluids like tea with honey may help to soothe the throat *Sleep elevated *Humidifier/Vaporizer Follow up IMMEDIATELY for new or worsening symptoms or no Noticeable improvement over the next 48-72 hours. 911 for difficulty breathing or swallowing You were tested for today for COVID19 your test result should be back in the next 24-48 hours, you may check your results on the [facility] My Health Portal Make sure to take your Vitamins Vit. C Vit D and Zinc if you can take them Referrals: Cristopher Gray MD [Primary Care Provider] - As needed Forms: Work/School Release Time of Disposition: 19:08 Medical Decision Making - Jayant Inquiry Pt receiving controlled substance: No Jayant was queried for this patient: No Vital Signs: 05/08/22 18:59 Temperature 98.3 F Temperature Source Oral Pulse Rate [Left Radial] 87 Respiratory Rate 18 Blood Pressure [Right Arm] 178/98 H Blood Pressure Mean [Right Arm] 124 Blood Pressure Source [Right Arm] Automatic Cuff Blood Pressure Position [Right Arm] Sitting 02 Sat by Pulse Oximetry 96 Oxygen Delivery Method Room Air Orders (Tests/Meds): ORDERS Category Date Time Status Covid-19 Nasal PCR ([facility]) Routine Lab 05/08/22 18:55 Received [facility] [place] HPI - General Stated complaint: hOME COVID+,COUGH,RUNNY NOSE Time Seen by Provider: 05/08/22 19:04 Mode of Arrival: Ambulatory Source of Information: Patient Limitations: No Limitations Description of Symptoms (Recalled from Triage Doc. 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 HEENT Symptoms (Recalled from RN notes): Yes Resp Symptoms (Recalled from RN notes): No Skin Symptoms (Recalled from RN notes): No MS Symptoms (Recalled from RN notes): No Functional Status (Recalled from RN notes): na - History of Present Illness Provider Complaint: Patient states that he has has some nasal congestion and cough since States that family talked him into doing a home COVID test and it was positive States that he has several appointments next week so he wanted to get tested for COVID to make sure if he has it or not - Related Data Home Medications Medication Instructions Recorded Confirmed Finasteride [Proscar 5mg Tablet] 5 mg PO DAILY 02/20/19 12/03/21 Fluticasone Propionate [Flonase 1 spr NS BID 02/20/19 11/11/21 50mcg nasal spray 16gm] Gabapentin [Gabapentin 300mg Cap] 300 mg PO BID 02/20/19 12/03/21 Levothyroxine Sodium 100 mcg PO DAILY 02/20/19 12/03/21 [Levothyroxine 100mcg (0.1MG) Tab] Rosuvastatin Calcium [Crestor] 10 mg PO DAILY 02/20/19 12/03/21 Sertraline HCl [Zoloft] 50 mg PO DAILY 02/20/19 12/03/21 Tamsulosin HCl [Flomax 0.4mg 0.4 mg PO HS 02/20/19 12/03/21 capsule] Valsartan [Diovan] 160 mg PO DAILY 02/20/19 12/03/21 nitrofurantoin macrocrystaL 50 mg PO DAILY 02/20/19 12/03/21 [Nitrofurantoin] Aspirin [Aspir 81] 81 mg PO DAILY 02/21/19 12/03/21 Meloxicam [Qmiiz Odt] 7.5 mg PO NEEDED PRN 02/21/19 11/11/21 diltiazem HCl 240 mg capsule,24 240 mg PO DAILY 02/19/21 12/03/21 hr,extended release fenofibrate 160 mg tablet 160 mg PO DAILY 02/19/21 11/11/21 fexofenadine 60 mg tablet 60 mg PO DAILY 02/19/21 11/11/21 magnesium oxide 250 mg PO DAILY 02/19/21 11/11/21 zinc acetate 50 mg (zinc) capsule 50 mg PO DAILY 02/19/21
== END 2022-05-08 19:14 | disposition home or self-care (01) ==
PROVIDERS: Emergency Provider Nurse Practitioner; PCP Internal Medicine
DX: U07.1 COVID-19 (principal); I10 Essential (primary) hypertension; E78.5 Hyperlipidemia, unspecified; E03.9 Hypothyroidism, unspecified; F32.A Depression, unspecified; Z79.51 Long term (current) use of inhaled steroids; Z79.82 Long term (current) use of aspirin; Z79.899 Other long term (current) drug therapy; Z88.2 Allergy status to sulfonamides; Z95.0 Presence of cardiac pacemaker; Z83.3 Family history of diabetes mellitus; Z80.9 Family history of malignant neoplasm, unspecified
CPT/HCPCS: 99213; C9803; G0463; U0003; U0005

== ENCOUNTER → 2022-06-04 07:44 | Outpatient (CLI) | payer BC, MEDICARE, SELFPAY ==
[2022-06-04 09:05] VITALS: PULSE 72; PULSE 76
[2022-06-04 09:30] VITALS: BP 140/94; BP 155/93; PULSE 69; PULSE 79; RESP 20; RESP 22; O2SAT 98
== END ==
PROVIDERS: PCP Internal Medicine; Visit Provider Internal Medicine Pulmonary Disease
DX: R06.00 Dyspnea, unspecified (principal)
CPT/HCPCS: 94060; 94618; 94640; 94727; 94729

== ENCOUNTER → 2023-01-20 12:16 | Outpatient (CLI) | payer BC, MEDICARE, SELFPAY | PROVIDERS: PCP Internal Medicine; Visit Provider Internal Medicine | DX: S31.103A Unspecified open wound of abdominal wall, right lower quadrant without penetration into peritoneal cavity, initial encounter (principal) | CPT/HCPCS: 87070; 87077; 87186; 87205 ==

== ENCOUNTER → 2023-02-09 13:08 | Outpatient (CLI) | payer BC, MEDICARE, SELFPAY | PROVIDERS: PCP Internal Medicine; Visit Provider Internal Medicine Pulmonary Disease | DX: R06.09 Other forms of dyspnea (principal) | CPT/HCPCS: 94060; 94618; 94726; 94729 ==

== ENCOUNTER → 2023-03-23 12:32 | Outpatient (CLI) | payer BC, MEDICARE, SELFPAY ==
[2023-03-23 16:20] LABS: Basophils % 0.4 % (0.1-2.0); Eosinophils # 0.5 K/mm3 (0.0-0.4); Eosinophils % 5.7 % (0.1-12.0); Hematocrit 46.4 % (42.0-52.0); Lymphocytes # 1.6 K/mm3 (0.7-4.5); Lymphocytes % 17.4 % (10-50); Mean Corpuscular HGB Conc 32.4 g/dL (31.8-35.4); Mean Corpuscular Hemoglobin 29.2 pg (27.0-31.2); Mean Corpuscular Volume 90.1 fl (80-94); Monocytes # 0.6 K/mm3 (0.1-1.0); Monocytes % 6.3 % (1.7-9.3); Neutrophils # 6.7 K/mm3 (1.8-7.8); Neutrophils % 70.3 % (37.0-80.0); Platelet Count 230 K/mm3 (142-424); Red Blood Count 5.15 M/mm3 (4.60-6.20); White Blood Count 9.5 K/mm3 (4.8-10.8)
[2023-03-23 16:49] LABS: Alanine Aminotransferase 26 U/L (12-78); Albumin Level 4.1 g/dl (3.5-5.0); Albumin/Globulin Ratio 1.9 (1.1-1.8); Alkaline Phosphatase 98 U/L (38-126); Aspartate Amino Transferase 23 U/L (17-59); Bilirubin,Total 0.7 mg/dl (0.2-1.3); Blood Urea Nitrogen 12 mg/dl (9-20); Calcium 8.5 mg/dl (8.4-10.2); Carbon Dioxide 28 mmol/L (22.0-30.0); Chloride 99 mmol/L (98-107); Chol/HDL Ratio 2.1 (1-3.5); Cholesterol 94 mg/dl (140-200); Estimated Glomerular Filt Rate 96 ml/min (>60); GFR (African American) 116 ML/MIN (>60); Globulin 2.2 g/dL (1.3-3.2); Glucose 108 mg/dl (74-100); HDL Cholesterol 45 mg/dl (40-60); Sodium 141 mmol/L (136-145); Total Protein,Serum 6.3 g/dl (6.3-8.2); Triglycerides 158 mg/dl (30-150); VLDL Cholesterol 32 mg/dL (0-40)
[2023-03-23 17:10] LABS: Direct LDL Cholesterol 37.61 mg/dL (100-129)
[2023-03-23 17:21] LABS: Thyroid Stimulating Hormone 0.77 uIU/mL (0.465-4.68)
== END ==
PROVIDERS: PCP Internal Medicine; Visit Provider Internal Medicine
DX: I10 Essential (primary) hypertension (principal); E03.9 Hypothyroidism, unspecified; E78.5 Hyperlipidemia, unspecified; J84.9 Interstitial pulmonary disease, unspecified; G91.2 (Idiopathic) normal pressure hydrocephalus; N40.1 Benign prostatic hyperplasia with lower urinary tract symptoms; Z12.5 Encounter for screening for malignant neoplasm of prostate; Z98.2 Presence of cerebrospinal fluid drainage device
CPT/HCPCS: 80053; 80061; 83735; 84443; 85025; G0103

== ENCOUNTER → 2023-06-11 07:06 | Outpatient (CLI) | payer BC, MEDICARE, SELFPAY ==
--- NOTE | 2023-06-11 07:06 | CT_ITS ---
FINAL REPORT TECHNIQUE: Axial images were obtained through the chest without contrast. High-resolution technique was utilized with supine on inspiration and expiration and prone on inspiration. CLINICAL HISTORY: . soa COMPARISON: 10/22/2021 FINDINGS: There is no evidence of mediastinal mass or adenopathy. DESIGN COORDINATOR shunt tubing is seen coursing over the right hemithorax. The heart size is normal. There is extensive coarse interstitial opacity in both lungs consistent with fibrosis. On prone images, linear opacities persist. There is no evidence of air trapping on expiration. Findings are similar to previous. IMPRESSION: Stable changes of chronic fibrosis. Reviewed, Interpreted and Dictated by Spencer Godfrey MD Transcribed by Yasemin Moore Authenticated and [facility]
== END ==
PROVIDERS: PCP Internal Medicine; Visit Provider Internal Medicine Pulmonary Disease
DX: R06.02 Shortness of breath (principal); J84.9 Interstitial pulmonary disease, unspecified
CPT/HCPCS: 71250; 94060

== ENCOUNTER → 2023-08-31 08:57 | Outpatient (POV) | payer BC, MEDICARE, SELFPAY | PROVIDERS: PCP Internal Medicine; Visit Provider Dermatology | DX: Z00.00 Encounter for general adult medical examination without abnormal findings (principal) ==

== ENCOUNTER → 2023-10-01 13:55 | Outpatient (CLI) | payer BC, MEDICARE, SELFPAY ==
[2023-10-01 15:02] LABS: Basophils # 0.1 K/mm3 (0-0.2); Basophils % 0.8 % (0.1-2.0); Eosinophils # 0.3 K/mm3 (0.0-0.4); Eosinophils % 3.2 % (0.1-12.0); Hematocrit 50.1 % (42.0-52.0); Hemoglobin 17.3 g/dL (14.1-18.0); Lymphocytes # 1.7 K/mm3 (0.7-4.5); Lymphocytes % 20.5 % (10-50); Mean Corpuscular HGB Conc 34.6 g/dL (31.8-35.4); Mean Corpuscular Hemoglobin 30.5 pg (27.0-31.2); Mean Corpuscular Volume 88.2 fl (80-94); Mean Platelet Volume 8.5 fl (7.4-10.4); Monocytes # 0.5 K/mm3 (0.1-1.0); Monocytes % 6.3 % (1.7-9.3); Neutrophils # 5.7 K/mm3 (1.8-7.8); Neutrophils % 69.3 % (37.0-80.0); Platelet Count 227 K/mm3 (142-424); Red Blood Count 5.68 M/mm3 (4.60-6.20); Red Cell Distribution Width 13.5 % (11.5-17.5); White Blood Count 8.3 K/mm3 (4.8-10.8)
[2023-10-01 15:10] LABS: Alanine Aminotransferase 23 U/L (12-78); Albumin Level 4.6 g/dl (3.5-5.0); Albumin/Globulin Ratio 1.7 (1.1-1.8); Alkaline Phosphatase 99 U/L (38-126); Anion Gap 12.5 mEq/L (5-15); Aspartate Amino Transferase 26 U/L (17-59); Bilirubin,Total 0.6 mg/dl (0.2-1.3); Blood Urea Nitrogen 13 mg/dl (9-20); Calcium 8.8 mg/dl (8.4-10.2); Carbon Dioxide 30 mmol/L (22.0-30.0); Chloride 99 mmol/L (98-107); Chol/HDL Ratio 2.6 (1-3.5); Cholesterol 126 mg/dl (140-200); Estimated Glomerular Filt Rate 74 ml/min (>60); GFR (African American) 89 ML/MIN (>60); Globulin 2.7 g/dL (1.3-3.2); Glucose 110 mg/dl (74-100); HDL Cholesterol 49 mg/dl (40-60); Potassium 4.5 mmoL/L (3.5-5.1); Sodium 137 mmol/L (136-145); Total Protein,Serum 7.3 g/dl (6.3-8.2); Triglycerides 132 mg/dl (30-150); VLDL Cholesterol 26 mg/dL (0-40)
[2023-10-01 15:38] LABS: Prostate Specific Ag Screen 1.9 ng/ml (0.0-4.0); Thyroid Stimulating Hormone 1.88 uIU/mL (0.465-4.68)
== END ==
LOC: LAB.DROPOF 13:55
PROVIDERS: PCP Internal Medicine; Visit Provider Internal Medicine
DX: I10 Essential (primary) hypertension (principal); J84.9 Interstitial pulmonary disease, unspecified; J30.9 Allergic rhinitis, unspecified; E03.9 Hypothyroidism, unspecified; E78.5 Hyperlipidemia, unspecified; G91.2 (Idiopathic) normal pressure hydrocephalus; Z12.5 Encounter for screening for malignant neoplasm of prostate
CPT/HCPCS: 80053; 80061; 84443; 85025; G0103

== ENCOUNTER 2023-12-17 09:34 | Outpatient (CLI) | payer BC, MEDICARE, SELFPAY ==
--- NOTE | 2023-12-17 09:38 | XR_ITS ---
FINAL REPORT CLINICAL HISTORY: PERSITENT COUGH,FEVER soa congestion FINDINGS: PA and lateral views of the chest are obtained. There is no prior exam for comparison. The cardiac and mediastinal silhouettes are within normal limits. PHARMACY TECHNICIAN INPATIENT shunt tubing courses along the right chest. There are bilateral mixed interstitial and alveolar opacities, could represent pulmonary edema or pneumonia. There is no pleural effusion, pneumothorax, or acute osseous abnormality. IMPRESSION: Pulmonary edema versus pneumonia. Reviewed, Interpreted and Dictated by Radha Dasilva MD Transcribed by Yasemin Moore Authenticated and [facility]
== END 2023-12-17 23:59 ==
LOC: RAD 09:35
PROVIDERS: PCP Internal Medicine; Visit Provider Internal Medicine
DX: R05.8 Other specified cough (principal); R50.9 Fever, unspecified; R09.89 Other specified symptoms and signs involving the circulatory and respiratory systems
CPT/HCPCS: 71046

== ENCOUNTER 2024-04-05 15:07 | Outpatient (CLI) | payer BC, MEDICARE, SELFPAY ==
[2024-04-05 14:27] LABS: Basophils # 0.1 K/mm3 (0-0.2); Eosinophils # 0.6 K/mm3 (0.0-0.4); Eosinophils % 6.7 % (0.1-12.0); Hematocrit 50.4 % (42.0-52.0); Hemoglobin 16.7 g/dL (14.1-18.0); Lymphocytes % 23.7 % (10-50); Mean Corpuscular HGB Conc 33.1 g/dL (31.8-35.4); Mean Corpuscular Hemoglobin 30.5 pg (27.0-31.2); Mean Platelet Volume 8.3 fl (7.4-10.4); Monocytes # 0.5 K/mm3 (0.1-1.0); Neutrophils # 5.2 K/mm3 (1.8-7.8); Neutrophils % 62.6 % (37.0-80.0); Platelet Count 231 K/mm3 (142-424); Red Blood Count 5.48 M/mm3 (4.60-6.20); Red Cell Distribution Width 13.7 % (11.5-17.5); White Blood Count 8.2 K/mm3 (4.8-10.8)
[2024-04-05 14:52] LABS: Alanine Aminotransferase 24 U/L (12-78); Albumin Level 4.2 g/dl (3.5-5.0); Albumin/Globulin Ratio 1.6 (1.1-1.8); Alkaline Phosphatase 92 U/L (38-126); Aspartate Amino Transferase 27 U/L (17-59); Bilirubin,Total 0.7 mg/dl (0.2-1.3); Blood Urea Nitrogen 18 mg/dl (9-20); Calcium 9.3 mg/dl (8.4-10.2); Carbon Dioxide 29 mmol/L (22.0-30.0); Chloride 100 mmol/L (98-107); Chol/HDL Ratio 3.2 (1-3.5); Cholesterol 138 mg/dl (140-200); Estimated Glomerular Filt Rate 66 ml/min (>60); GFR (African American) 80 ML/MIN (>60); Globulin 2.6 g/dL (1.3-3.2); Glucose 112 mg/dl (74-100); HDL Cholesterol 43 mg/dl (40-60); Sodium 140 mmol/L (136-145); Total Protein,Serum 6.8 g/dl (6.3-8.2); Triglycerides 169 mg/dl (30-150); VLDL Cholesterol 34 mg/dL (0-40)
[2024-04-05 15:03] LABS: Direct LDL Cholesterol 71.91 mg/dL (100-129)
[2024-04-05 15:22] LABS: Thyroid Stimulating Hormone 2.18 uIU/mL (0.465-4.68)
== END 2024-04-05 23:59 | disposition home or self-care (01) ==
LOC: LAB.DROPOF 15:10
PROVIDERS: PCP Internal Medicine; Visit Provider Internal Medicine
DX: E78.5 Hyperlipidemia, unspecified (principal); I10 Essential (primary) hypertension; E03.9 Hypothyroidism, unspecified
CPT/HCPCS: 80050; 80053; 80061; 84443; 85025

== ENCOUNTER 2024-06-13 08:02 | Outpatient (CLI) | payer BC, MEDICARE, SELFPAY ==
[2024-06-13 08:50] VITALS: PULSE 87; PULSE 92
[2024-06-13] MEDS: ALBUTEROL 0.083% 2.5 MG/3 ML NEB IH (08:50)
== END 2024-06-13 23:59 | disposition home or self-care (01) ==
LOC: RT 08:02
PROVIDERS: PCP Internal Medicine; Visit Provider Internal Medicine Pulmonary Disease
DX: R06.09 Other forms of dyspnea (principal)
CPT/HCPCS: 94060; 94618; 94640; J7613

== ENCOUNTER 2024-07-26 14:14 | Outpatient (CLI) | payer BC, MEDICARE, SELFPAY ==
--- NOTE | 2024-07-26 14:24 | XR_ITS ---
FINAL REPORT CLINICAL HISTORY: Left hip pain FINDINGS: LEFT HIP: Two views of the left hip demonstrate no acute fracture or dislocation. Mild degenerative changes are seen in both hips. The visualized bony structures are well aligned. No soft tissue abnormality is seen. A catheter is noted in the pelvis. IMPRESSION: Degenerative changes with no acute bony abnormality. Reviewed, Interpreted and Dictated by Warren Devlin III, MD Transcribed by Janett Rubin Authenticated and [facility]
== END 2024-07-26 23:59 | disposition home or self-care (01) ==
LOC: RAD 14:17
PROVIDERS: PCP Internal Medicine; Visit Provider Internal Medicine
DX: M25.552 Pain in left hip (principal)
CPT/HCPCS: 73502

== ENCOUNTER 2024-08-07 14:53 | Outpatient (CLI) | payer BC, MEDICARE, SELFPAY ==
--- NOTE | 2024-08-07 10:46 | XR_ITS ---
PROCEDURE INFORMATION: Exam: XR Lumbosacral Spine Exam date and time: 08/07/2024 10:48 AM Age: 69 years old Clinical indication: Pain; Lumbago with sciatica; Left; Additional info: Left hip pain, left buttock pain TECHNIQUE: Imaging protocol: Radiologic exam of the lumbosacral spine. Views: 2 or 3 views. COMPARISON: CR XR LUMBAR SPINE MIN 4V 09/25/2020 10:17 AM FINDINGS: Bones/joints: No acute fracture or malalignment. Mild levocurvature. Satisfactory alignment of posterior instrumented fusion spanning L4-5. No evidence of hardware complication. Note made of minimal (1 mm) anterolisthesis at L3-L4. Mild-moderate multilevel disc space narrowing, osteophyte formation, bilateral facet hypertrophy in the lumbar spine. Soft tissues: Unremarkable. IMPRESSION: No acute abnormality. Unremarkable appearance of lumbar spine posterior instrumented fusion. [id number] lumbar spondylosis.
--- NOTE | 2024-08-07 14:53 | CT_ITS ---
PROCEDURE INFORMATION: Exam: CT Left Lower Extremity, Hip Exam date and time: 08/07/2024 4:09 PM Age: 69 years old Clinical indication: Pain; Hip; Left; Additional info: Pain in lt hip TECHNIQUE: Imaging protocol: CT of the left lower extremity without contrast was performed. Exam focused on the hip. Radiation optimization: All CT scans at this facility use at least one of these dose optimization techniques: automated exposure control; mA and/or kV adjustment per patient size (includes targeted exams where dose is matched to clinical indication); or iterative reconstruction. COMPARISON: CR XR HIP LT 2-3V W/PELVIS 07/26/2024 2:39 PM FINDINGS: Bones/joints: No acute fracture or malalignment. No worrisome lytic or blastic osseous lesion. No appreciable cortical erosion or periosteal reaction. Left hip joint space is preserved. Mildly prominent acetabular marginal osteophyte formation posteriorly. No joint effusion. Soft tissues: No soft tissue abnormality. In the left pelvic sidewall, there is a round hypodense structure attenuating at approximately 23 Hounsfield units which abuts the left bladder wall. Measures 0.7 x 2.3 cm axial. Image 33 series 3. IMPRESSION: 1. No acute fracture or malaligment. 2. Mild-moderate left hip osteoarthritis. 3. In the left pelvic sidewall, there is a round hypodense structure attenuating at approximately 23 Hounsfield units which abuts the left bladder wall. Measures 0.7 x 2.3 cm axial. Nonspecific finding. May represent bladder diverticulum versus a lymph node. Recommend correlation. According to clinical discretion, dedicated CT of the pelvis can be considered for complete evaluation.
--- NOTE | 2024-08-07 14:53 | CT_ITS ---
PROCEDURE INFORMATION: Exam: CT Lumbar Spine Without and With Contrast Exam date and time: 08/07/2024 4:12 PM Age: 69 years old Clinical indication: Low back pain; Additional info: Lt hip pain TECHNIQUE: Imaging protocol: Computed tomography of the lumbar spine without and with contrast. Radiation optimization: All CT scans at this facility use at least one of these dose optimization techniques: automated exposure control; mA and/or kV adjustment per patient size (includes targeted exams where dose is matched to clinical indication); or iterative reconstruction. Contrast material: ISOVUE; Contrast volume: 75 ml; Contrast route: IV; COMPARISON: CR XR LUMBAR SPINE 2-3V 08/07/2024 10:48 AM FINDINGS: Bones/joints: No acute fracture or malalignment. L4-L5 posterior instrumented fusion with interbody spacer appears in satisfactory alignment without evidence of loosening or fracture. Mild-moderate multilevel disc space narrowing, osteophyte formation, bilateral facet hypertrophy. Superior central endplate Schmorl's node depression at L1. Soft tissues: No soft tissue abnormality. IMPRESSION: 1. No acute fracture or malalignment. 2. [id number] multilevel degenerative change in the lumbar spine, status post L4-L5 posterior instrumented fusion. No evidence of hardware complication.
[2024-08-07 15:38] LABS: Blood Urea Nitrogen 16 mg/dl (9-20); Estimated Glomerular Filt Rate 83 ml/min (>60); GFR (African American) 101 ML/MIN (>60)
[2024-08-07] MEDS: IOPAMIDOL-370 (76%);100ML BOTTLE 75 ML IV (16:33)
[2024-08-07] MEDS: SODIUM CHLORIDE 0.9% 10ML SYR (RAD ONLY) 10 ML IV (16:34)
== END 2024-08-07 23:59 | disposition home or self-care (01) ==
PROVIDERS: PCP Internal Medicine; Visit Provider Internal Medicine
DX: M25.552 Pain in left hip (principal); M54.32 Sciatica, left side
CPT/HCPCS: 36415; 72100; 72133; 73700; 82565; 84520; Q9967

== ENCOUNTER 2024-08-23 10:51 | Outpatient (POV) | payer BC, MEDICARE, SELFPAY ==
[2024-08-23 12:09] VITALS: BP 150/92; PULSE 98; RESP 18; O2SAT 94; BMI 27.8
--- NOTE | 2024-08-23 12:25 | A.OFFVIS_ITS ---
HPI Data of Consult Patient: new to practice Consult date: 08/23/24 Requesting Physician: Prabha Hughes APRN Primary Care Provider: Cristopher Gray MD Consult Narrative Reason for consult: Low back pain, left hip pain, left groin and upper thigh pain History of present illness: Mr. Bearden is a 69 year old male who presents today as a new patient. He is a referral from Dr. Gray's office. Today he rates his pain an 8 out of 10. Patient states he has been experiencing severe pain all along his low back along the left side and into his left hip and groin and upper thigh. Patient states that he had not had any specific injury or trauma when this initially started however he had been baling hay and in that position for some time. He states that it did actually ease up however it did flare back up to where it is now constant and feels like a toothache sensation. Patient states the pain is interfering with his ability perform activities of daily living such as cooking and cleaning. Patient states the pain is worse with prolonged positioning such as standing or sitting. Patient has tried oral medications along with oral steroids and IM injection, heat and ice and topicals with minimal relief. Patient states that he went to the chiropractor for different occasions with no additional improvement. Patient states that his primary care did also give him Lortab however it seems did not really do anything to help with the pain. He is interested in any help we may be able to provide. Patient has continued at home exercising and stretching for longer than 12 weeks with no additional improvement. His Jayant has been reviewed and is appropriate. CC: Prabha Hughes APRN [facility] Disclaimer: The information contained in this section may have been updated after the tima ent was seen, as this information can be updated by other users. Medical History COPD mixed type Chronic dyspnea Multiple pulmonary nodules ILD (interstitial lung disease) Restrictive lung disease History of 2019 novel coronavirus disease (COVID-19) Dyspnea on exertion Exposure to COVID-19 virus Surgical History History of surgery on arm History of nasal surgery History of cholecystectomy History of non-cataract eye surgery History of lumbar surgery Family History Mother Lung disease Social History (Updated 08/23/24 @ 12:12 by Qing Cuba RN) Smoking Status: Never smoker alcohol intake: never substance use type: denies use current occupational status: employed and other Travel in the last 8 weeks: None household members: none housing: house Review of Systems Review of Systems Review of systems:: pertinent systems reviewed and negative unless documented below Review of systems (narrative): Review of Systems: General: No recent weight changes, no fever, no sleep disturbances Respiratory: No cough, no shortness of air, no recurring pulmonary infections Cardiovascular/peripheral vascular: No chest pain, no palpitations, no edema, no shortness of breath Gastrointestinal: No new onset incontinence, normal bowel movements reported Genitourinary: No new onset incontinence Musculoskeletal: Low back pain, left hip pain, left groin pain, left upper thigh pain Psychiatric: [Normal mood/affect] Neurological: [Denies weakness in extremities], [denies balance issues] Meds Home Medications and Allergies Home Medications ?Medication ?Instructions ?Recorded ?Confirmed ?Type tamsulosin 0.4 mg capsule 0.4 mg PO HS prostate 02/20/19 08/07/24 History aspirin 81 mg tablet,delayed 81 mg PO DAILY preventitive 02/21/19 08/07/24 History release albuterol sulfate 90 mcg/actuation 1 inh inhalation QID PRN shortness 12/25/20 08/07/24 Rx aerosol inhaler of breath or wheezing #8.5 grams fenofibrate 160 mg tablet 160 mg PO DAILY triglycerides 02/19/21 08/07/24 History fexofenadine 60 mg tablet 60 mg PO DAILY allergies 02/19/21 08/07/24 History azelastine 137 mcg (0.1 %) nasal See Rx Instructions .Route 10/04/23 08/07/24 Rx spray .COMPLEX #90 mL finasteride 5 mg tablet See Rx Instructions .Route 04/29/24 08/07/24 Rx .COMPLEX #90 tabs montelukast 10 mg tablet 10 mg PO DAILY #90 tabs 04/29/24 08/07/24 Rx rosuvastatin 10 mg tablet See Rx Instructions .Route 05/23/24 08/07/24 Rx .COMPLEX #90 tabs sertraline 50 mg tablet See Rx Instructions .Route 05/23/24 08/07/24 Rx .COMPLEX #90 tabs valsartan 160 mg tablet See Rx Instructions .Route 05/23/24 08/07/24 Rx .COMPLEX #90 tabs fluticasone 500 mcg-salmeterol 50 1 inh inhalation BID 90 days #60 ea 06/13/24 08/07/24 Rx mcg/dose blistr powdr for inhalation ([facility]ix[facility] Inhub) trazodone 50 mg tablet See Rx Instructions .Route 07/07/24 08/07/24 Rx .COMPLEX #180 tabs codeine 10 mg-guaifenesin 200 mg/5 See Rx Instructions PO Q4-6H PRN 07/19/24 08/07/24 Rx mL oral liquid cold symptoms/cough #473 mL gabapentin 300 mg capsule 300 mg PO .COMPLEX Pain #90 caps 07/19/24 08/07/24 Rx diltiazem HCl 240 mg See Rx Instructions .Route 07/26/24 08/07/24 Rx capsule,extended release 24 hr .COMPLEX #90 caps prednisone 10 mg tablet 10 mg PO DIRECTED #32 tabs 07/26/24 08/07/24 Rx hydrocodone 7.5 mg-acetaminophen 1 tab PO Q8H PRN pain #30 tabs 08/08/24 Rx 325 mg tablet levothyroxine 112 mcg tablet See Rx Instructions .Route 08/15/24 Rx .COMPLEX #90 tabs cephalexin 250 mg capsule 250 mg PO DAILY #10 caps 08/16/24 Rx New Prescriptions to Start Prescriptions: Allergies Allergy/AdvReac Type Severity Reaction Status Date / Time Sulfa (Sulfonamide Allergy Intermediate Rash Verified 08/07/24 09:44 Antibiotics) Objective Narrative: Physical Exam: General: Alert and oriented x3, no acute distress, pleasant and cooperative Lungs: Respirations even and unlabored, symmetrical chest expansion Eyes: PERRL Musculoskeletal: Flexion and extension of lumbar [spine] somewhat guarded secondary to pain, [antalgic gait noted] point tenderness along left SI with positive left Abhijit's, Kelly's, Gaenslen's, compression and distraction exam Neurological: Speech clear, no gross sensory deficit Assessment and Plan *Assessment and plan (1) Left sided sciatica: Status: Acute Category: Medical Code(s): M54.32 - Sciatica, left side (2) Sacroiliitis: Status: Acute Category: Medical Code(s): M46.1 - Sacroiliitis, not elsewhere classified (3) Left hip pain: Status: Acute Category: Medical Code(s): M25.552 - Pain in left hip Plan Patient is experiencing significant pain throughout his low back and left hip with limited range of motion of his lumbar spine and point tenderness along his left SI. Patient was counseled due to a positive left Abhijit's, Kelly's, Gaenslen's, compression and distraction exam that I do believe he would benefit from a left SI injection. Risk and benefits were discussed with patient he would like to proceed forward with this plan of care. Patient has tried and failed conservative therapy including continued at home stretching exercise for longer than 12 weeks. I did also review over his imaging of his lumbar spine. Patient has had a prior lumbar fusion. Patient will be ordered a compounded cream. Patient will be submitted for a left SI injection under fluoroscopy. Patient has been instructed to contact the clinic with any concerns before the next appointment. Dr. Thibodeaux has reviewed this note and agrees with this plan of care. This note was dictated using voice recognition software and make contain errors or omissions. All injections are used with Lidocaine or Bupivacaine and Depo Medrol.
== END 2024-08-23 23:59 | disposition home or self-care (01) ==
LOC: SC.PAIN 10:53
PROVIDERS: PCP Internal Medicine; Visit Provider Nurse Practitioner Family
DX: M54.32 Sciatica, left side (principal); M46.1 Sacroiliitis, not elsewhere classified; M25.552 Pain in left hip; Z73.89 Other problems related to life management difficulty; Z79.899 Other long term (current) drug therapy
CPT/HCPCS: 99202; G0463

== ENCOUNTER 2024-08-29 09:55 | Day surgery (SDC) | payer BC, MEDICARE, SELFPAY ==
[2024-08-29 10:18] VITALS: BP 129/85; PULSE 87; RESP 16; TEMP 36.5; O2SAT 98; BMI 27.8
[2024-08-29] MEDS: methylPREDNISolone ACETATE 80MG/ML VIAL 80 MG (11:04)
[2024-08-29] MEDS: BUPIVACAINE 0.25% 10ML INJ 25 MG IJ (11:04)
[2024-08-29] MEDS: LIDOCAINE 1% 5ML PF VIAL 5 ML (11:05)
[2024-08-29 11:06] VITALS: BP 120/71; PULSE 85; RESP 18; O2SAT 97
[2024-08-29 11:21] VITALS: BP 120/63; PULSE 75; RESP 16; O2SAT 98
--- NOTE | 2024-08-29 11:33 | EXP.PAIN.PRO ---
Procedure Date: 08/29/24 Time: 11:00 Anesthesiologist:: Ren Pierre CRNA Complications:: None Pre-procedure Diagnosis:: Left sacroiliitis Degenerative disc lumbar spine multilevels. Lumbar postlaminectomy syndrome. Lumbar spondylosis. Post-procedure Diagnosis:: Same. Indications for Procedure:: Patient is a pleasant 69-year-old male who comes our clinic today for a left sacroiliac joint injection of cortisone and local anesthetic. Patient describes low lumbar back pain off the midline to the left with radiation into the left anterior thigh to the knee. He describes the pain as constant, dull, aching, intermittent at times. He reports having difficulty transitioning from sitting to standing. He reports the pain came on suddenly while squatting and hooking up a trailer to the tractor. Ambulation increases pain significantly. Procedure Details:: Procedure: Left sacroiliac injection under fluoroscopy Informed consent was obtained and the risk and benefits of the procedure were explained to the patient.~ The patient was taken to the procedure room and noninvasive monitors were placed including noninvasive blood pressure cuff and pulse oximeter.~ The patient was placed prone on the procedure table.~ The~ left hip was cleansed using Betadine as a cleansing solution.~ C-arm fluorosocpy was used to view the left SI joint.~ The skin and subcutaneous tissues were anesthetized using Lidocaine 1.5% and a 25-gauge needle.~ After this, a 22-gauge spinal needle was inserted under fluoroscopic guidance into the inferior aspect of the left SI joint.~ Omnipaque dye was injected and a good spread was seen throughout the joint.~ After this, approximately 5 mL of bupivacaine 0.25% and Depo-Medrol 40 mg was incrementally injected into the sacroiliac joint.~ The patient tolerated the procedure well with no complications.~ The patient was observed in the Pain Clinic for a period of 30-45 minutes, then discharged home neurologically intact.~ Plan and Disposition:: Patient was discharged without incident.
== END 2024-08-29 11:21 | disposition home or self-care (01) ==
PROVIDERS: PCP Internal Medicine; Visit Provider Nurse Anesthetist, Certified Registered
DX: M46.1 Sacroiliitis, not elsewhere classified (principal); M96.1 Postlaminectomy syndrome, not elsewhere classified; M47.816 Spondylosis without myelopathy or radiculopathy, lumbar region
CPT/HCPCS: 27096; G0260; J1010

== ENCOUNTER 2024-09-05 10:35 | Outpatient (CLI) | payer BC, MEDICARE, SELFPAY ==
--- NOTE | 2024-09-05 10:43 | XR_ITS ---
FINAL REPORT CLINICAL HISTORY: .pain COMPARISON: None FINDINGS: LEFT KNEE Three views demonstrate no acute fracture or dislocation. There is moderate medial compartment joint space narrowing. Small osteophytes are noted along the undersurface of the patella. There is a small joint effusion. No acute soft tissue abnormality is seen. IMPRESSION: Mild to moderate changes of osteoarthritis medial compartment and patellofemoral joint spaces. Reviewed, Interpreted and Dictated by Spencer Godfrey MD Transcribed by Maria Esther Ojeda Authenticated and [facility]
== END 2024-09-05 23:59 | disposition home or self-care (01) ==
LOC: RAD 10:38
PROVIDERS: PCP Internal Medicine; Visit Provider Internal Medicine
DX: M17.12 Unilateral primary osteoarthritis, left knee (principal)
CPT/HCPCS: 73562

== ENCOUNTER 2024-09-20 14:46 | Outpatient (POV) | payer BC, MEDICARE, SELFPAY ==
--- NOTE | 2024-09-20 15:12 | A.OFFVIS_ITS ---
[facility] Disclaimer: The information contained in this section may have been updated after the patient was seen, as this information can be updated by other users. Medical History COPD mixed type Chronic dyspnea Multiple pulmonary nodules ILD (interstitial lung disease) Restrictive lung disease History of 2019 novel coronavirus disease (COVID-19) Dyspnea on exertion Exposure to COVID-19 virus Surgical History History of surgery on arm History of nasal surgery History of cholecystectomy History of non-cataract eye surgery History of lumbar surgery Family History Mother Lung disease Social History Smoking Status: Never smoker alcohol intake: never substance use type: denies use current occupational status: retired Travel in the last 8 weeks: None household members: none housing: house PM Subjective & Objective Subjective Subjective:: Patient is a pleasant 69-year-old male who presents today for follow-up of his left SI injection on 08/29/2024. Today he rates his pain a 2 out of 10. Patient states that he has had at least 90% improvement following this injection and feels like it is still working wonderful. He states he has been able to increase his activity and was able to walk completely back to our office today with no problems. Patient does also state that he did have his left knee injected yesterday with orthopedics and that it did feel much better while it was numb however it has not really kicked in just yet. Patient does also make mention at the same time he had that injection he did start feeling a slight stinging sensation in his left butt cheek area however it is not severe at this time. He does also state he did end up getting the compounded cream and feels like that it is helping as well. Patient states he has tried it on he has knee however denies trying it on his buttocks area. His Jayant has been reviewed and is appropriate. Review of Systems: General: No recent weight changes, no fever, no sleep disturbances Respiratory: No cough, no shortness of air, no recurring pulmonary infections Cardiovascular/peripheral vascular: No chest pain, no palpitations, no edema, no shortness of breath Gastrointestinal: No new onset incontinence, normal bowel movements reported Genitourinary: No new onset incontinence Musculoskeletal: Low back pain Psychiatric: [Normal mood/affect] Neurological: [Denies weakness in extremities], [denies balance issues] Pain at rest (0-10 scale): 2 Objective Objective:: Physical Exam: General: Alert and oriented x3, no acute distress, pleasant and cooperative Lungs: Respirations even and unlabored, symmetrical chest expansion Eyes: PERRL Musculoskeletal: Flexion and extension of lumbar [spine] somewhat guarded secondary to pain, [antalgic gait noted] Neurological: Speech clear, no gross sensory deficit Has patient had previous pain injection?: Yes Percent improvement in pain since last injection: 90% Conservative treatment options previously tried: Home exercise plan Length of treatment: Longer than 12 weeks Meds Home Medications and Allergies Home Medications ?Medication ?Instructions ?Recorded ?Confirmed ?Type tamsulosin 0.4 mg capsule 0.4 mg PO HS prostate 02/20/19 09/19/24 History aspirin 81 mg tablet,delayed 81 mg PO DAILY preventitive 02/21/19 09/19/24 History release albuterol sulfate 90 mcg/actuation 1 inh inhalation QID PRN shortness 12/25/20 09/19/24 Rx aerosol inhaler of breath or wheezing #8.5 grams fenofibrate 160 mg tablet 160 mg PO DAILY triglycerides 02/19/21 09/19/24 History fexofenadine 60 mg tablet 60 mg PO DAILY allergies 02/19/21 09/19/24 History azelastine 137 mcg (0.1 %) nasal See Rx Instructions .Route 10/04/23 09/19/24 Rx spray .COMPLEX #90 mL finasteride 5 mg tablet See Rx Instructions .Route 04/29/24 09/19/24 Rx .COMPLEX #90 tabs montelukast 10 mg tablet 10 mg PO DAILY #90 tabs 04/29/24 09/19/24 Rx rosuvastatin 10 mg tablet See Rx Instructions .Route 05/23/24 09/19/24 Rx .COMPLEX #90 tabs sertraline 50 mg tablet See Rx Instructions .Route 05/23/24 09/19/24 Rx .COMPLEX #90 tabs valsartan 160 mg tablet See Rx Instructions .Route 05/23/24 09/19/24 Rx .COMPLEX #90 tabs fluticasone 500 mcg-salmeterol 50 1 inh inhalation BID 90 days #60 ea 06/13/24 09/19/24 Rx mcg/dose blistr marcydr for inhalation (Wixela Inhub) trazodone 50 mg tablet See Rx Instructions .Route 07/07/24 09/19/24 Rx .COMPLEX #180 tabs codeine 10 mg-guaifenesin 200 mg/5 See Rx Instructions PO Q4-6H PRN 07/19/24 09/19/24 Rx mL oral liquid cold symptoms/cough #473 mL gabapentin 300 mg capsule 300 mg PO .COMPLEX Pain #90 caps 07/19/24 09/19/24 Rx diltiazem HCl 240 mg See Rx Instructions .Route 07/26/24 09/19/24 Rx capsule,extended release 24 hr .COMPLEX #90 caps prednisone 10 mg tablet 10 mg PO DIRECTED #32 tabs 07/26/24 09/19/24 Rx levothyroxine 112 mcg tablet See Rx Instructions .Route 08/15/24 09/19/24 Rx .COMPLEX #90 tabs tramadol 50 mg tablet 50 mg PO Q6H PRN pain #60 tabs 08/23/24 09/19/24 Rx cephalexin 250 mg capsule 250 mg PO DAILY #90 caps 08/31/24 09/19/24 Rx famotidine 20 mg tablet 20 mg PO HS For GI protection #30 09/05/24 09/19/24 Rx tabs naproxen 500 mg tablet 500 mg PO BID PRN Pain or 09/05/24 09/19/24 Rx inflammation #60 tabs celecoxib 100 mg capsule (Celebrex) 100 mg PO BID #60 caps 09/19/24 09/19/24 Rx New Prescriptions to Start Prescriptions: Allergies Allergy/AdvReac Type Severity Reaction Status Date / Time Sulfa (Sulfonamide Allergy Intermediate Rash Verified 09/19/24 09:58 Antibiotics) Assessment and Plan *Assessment and plan (1) Sacroiliitis: Status: Acute Category: Medical Code(s): M46.1 - Sacroiliitis, not elsewhere classified Plan Patient has had significant improvement following his SI injection and does not require any additional injection therapy at this time. Patient will return to clinic in 1 month for reevaluation of symptoms and plan of care. Patient has been instructed to contact the clinic with any concerns before the next appointment. Dr. Thibodeaux has reviewed this note and agrees with this plan of care. This note was dictated using voice recognition software and make contain errors or omissions. All injections are used with Lidocaine or Bupivacaine and Depo Medrol.
[2024-09-20 15:31] VITALS: BP 157/82; PULSE 99; RESP 16; O2SAT 95; BMI 27.8
== END 2024-09-20 23:59 | disposition home or self-care (01) ==
LOC: SC.PAIN 14:48
PROVIDERS: PCP Internal Medicine; Visit Provider Nurse Practitioner Family
DX: M46.1 Sacroiliitis, not elsewhere classified (principal); Z79.899 Other long term (current) drug therapy
CPT/HCPCS: 99212; G0463

== ENCOUNTER 2024-10-04 15:46 | Outpatient (CLI) | payer BC, MEDICARE, SELFPAY ==
[2024-10-04 15:18] LABS: Hematocrit 50.1 % (42.0-52.0); Hemoglobin 16.7 g/dL (14.1-18.0); Mean Corpuscular HGB Conc 33.3 g/dL (31.8-35.4); Mean Corpuscular Volume 89.9 fl (80-94); Platelet Count 227 K/mm3 (142-424); Red Blood Count 5.56 M/mm3 (4.60-6.20); Red Cell Distribution Width 13.6 % (11.5-17.5); White Blood Count 7.6 K/mm3 (4.8-10.8)
[2024-10-04 15:19] LABS: Basophils # 0.1 K/mm3 (0-0.2); Basophils % 0.7 % (0.1-2.0); Eosinophils # 0.5 K/mm3 (0.0-0.4); Eosinophils % 6.9 % (0.1-12.0); Lymphocytes # 2.2 K/mm3 (0.7-4.5); Lymphocytes % 28.8 % (10-50); Mean Platelet Volume 9.9 fl (7.4-10.4); Monocytes # 0.6 K/mm3 (0.1-1.0); Monocytes % 7.8 % (1.7-9.3); Neutrophils # 4.3 K/mm3 (1.8-7.8); Neutrophils % 55.3 % (37.0-80.0)
[2024-10-04 15:27] LABS: Alanine Aminotransferase 41 U/L (12-78); Albumin Level 4.6 g/dl (3.5-5.0); Albumin/Globulin Ratio 1.8 (1.1-1.8); Alkaline Phosphatase 105 U/L (38-126); Aspartate Amino Transferase 43 U/L (17-59); Bilirubin,Total 0.8 mg/dl (0.2-1.3); Blood Urea Nitrogen 15 mg/dl (9-20); Calcium 9.6 mg/dl (8.4-10.2); Carbon Dioxide 32 mmol/L (22.0-30.0); Chloride 101 mmol/L (98-107); Chol/HDL Ratio 2.6 (1-3.5); Cholesterol 142 mg/dl (140-200); Estimated Glomerular Filt Rate 74 ml/min (>60); GFR (African American) 89 ML/MIN (>60); Globulin 2.6 g/dL (1.3-3.2); Glucose 94 mg/dl (74-100); HDL Cholesterol 54 mg/dl (40-60); Magnesium 2.2 mg/dl (1.6-2.3); Sodium 142 mmol/L (136-145); Total Protein,Serum 7.2 g/dl (6.3-8.2); Triglycerides 184 mg/dl (30-150); VLDL Cholesterol 37 mg/dL (0-40)
[2024-10-04 15:37] LABS: Direct LDL Cholesterol 67.09 mg/dL (100-129)
[2024-10-04 16:02] LABS: Anion Gap 13.5 mEq/L (5-15); Potassium 4.5 mmoL/L (3.5-5.1)
[2024-10-04 23:11] LABS: Hemoglobin A1C 6.6 % (4.0-6.0)
== END 2024-10-04 23:59 | disposition home or self-care (01) ==
LOC: LAB.DROPOF 15:47
PROVIDERS: PCP Internal Medicine; Visit Provider Internal Medicine
DX: R73.02 Impaired glucose tolerance (oral) (principal); E78.5 Hyperlipidemia, unspecified; I10 Essential (primary) hypertension; M62.838 Other muscle spasm
CPT/HCPCS: 80053; 80061; 83036; 83735; 85025

== ENCOUNTER 2024-10-30 09:04 | Outpatient (POV) | payer BC, MEDICARE, SELFPAY ==
--- NOTE | 2024-10-30 09:21 | A.OFFVIS_ITS ---
[facility] Disclaimer: The information contained in this section may have been updated after the patient was seen, as this information can be updated by other users. Medical History COPD mixed type Chronic dyspnea Multiple pulmonary nodules ILD (interstitial lung disease) Restrictive lung disease History of 2019 novel coronavirus disease (COVID-19) Dyspnea on exertion Exposure to COVID-19 virus Surgical History History of surgery on arm History of nasal surgery History of cholecystectomy History of non-cataract eye surgery History of lumbar surgery Family History Mother Lung disease Social History Smoking Status: Never smoker alcohol intake: never substance use type: denies use current occupational status: other Travel in the last 8 weeks: None household members: none housing: house PM Subjective & Objective Subjective Subjective:: Patient is a pleasant 69-year-old male who presents today for follow-up. Today he rates his pain a 1 out of 10. Patient previously had a left SI injection on 08/29/2024 that did provide at least 90% improvement. He states overall he is still been doing really well. He does state that he will have moments that the pain does flareup and describes it just more of a discomfort across his low back. He states these are more when he is going from a seated position generally in the restroom and goes to pull up his pants and he feels it radiate across. He does state it is still very manageable. He is still using his cream and even using it on his knees with improvement. Patient does also state he has been using an omega supplement however has not necessarily noticed significant changes but thought that it would be worth a try. Patient does state that he did have a fall last Wednesday where his right leg hit the tailgate and he is br uised up on that extremity however denies any significant injury. Patient is prescribed compounded cream from our office and denies any side effects. His Jayant has been reviewed and is appropriate. Review of Systems: General: No recent weight changes, no fever, no sleep disturbances Respiratory: No cough, no shortness of air, no recurring pulmonary infections Cardiovascular/peripheral vascular: No chest pain, no palpitations, no edema, no shortness of breath Gastrointestinal: No new onset incontinence, normal bowel movements reported Genitourinary: No new onset incontinence Musculoskeletal: Low back pain Psychiatric: [Normal mood/affect] Neurological: [Denies weakness in extremities], [denies balance issues] Pain at rest (0-10 scale): 1 Objective Objective:: Physical Exam: General: Alert and oriented x3, no acute distress, pleasant and cooperative Lungs: Respirations even and unlabored, symmetrical chest expansion Eyes: PERRL Musculoskeletal: Flexion and extension of lumbar [spine] somewhat guarded secondary to pain, [antalgic gait noted] Neurological: Speech clear, no gross sensory deficit Has patient had previous pain injection?: No Conservative treatment options previously tried: Home exercise plan Length of treatment: Longer than 12 weeks Meds Home Medications and Allergies Home Medications ?Medication ?Instructions ?Recorded ?Confirmed ?Type aspirin 81 mg tablet,delayed 81 mg PO DAILY preventitive 02/21/19 10/04/24 History release albuterol sulfate 90 mcg/actuation 1 inh inhalation QID PRN shortness 12/25/20 10/04/24 Rx aerosol inhaler of breath or wheezing #8.5 grams fenofibrate 160 mg tablet 160 mg PO DAILY triglycerides 02/19/21 10/04/24 History fexofenadine 60 mg tablet 60 mg PO DAILY allergies 02/19/21 10/04/24 History azelastine 137 mcg (0.1 %) nasal See Rx Instructions .Route 10/04/23 10/04/24 Rx spray .COMPLEX #90 mL finasteride 5 mg tablet See Rx Instructions .Route 04/29/24 10/04/24 Rx .COMPLEX #90 tabs montelukast 10 mg tablet 10 mg PO DAILY #90 tabs 04/29/24 10/04/24 Rx rosuvastatin 10 mg tablet See Rx Instructions .Route 05/23/24 10/04/24 Rx .COMPLEX #90 tabs sertraline 50 mg tablet See Rx Instructions .Route 05/23/24 10/04/24 Rx .COMPLEX #90 tabs valsartan 160 mg tablet See Rx Instructions .Route 05/23/24 10/04/24 Rx .COMPLEX #90 tabs fluticasone 500 mcg-salmeterol 50 1 inh inhalation BID 90 days #60 ea 06/13/24 10/04/24 Rx mcg/dose blistr powdr for inhalation (Wixela Inhub) trazodone 50 mg tablet See Rx Instructions .Route 07/07/24 10/04/24 Rx .COMPLEX #180 tabs codeine 10 mg-guaifenesin 200 mg/5 See Rx Instructions PO Q4-6H PRN 07/19/24 10/04/24 Rx mL oral liquid cold symptoms/cough #473 mL diltiazem HCl 240 mg See Rx Instructions .Route 07/26/24 10/04/24 Rx capsule,extended release 24 hr .COMPLEX #90 caps prednisone 10 mg tablet 10 mg PO DIRECTED #32 tabs 07/26/24 10/04/24 Rx levothyroxine 112 mcg tablet See Rx Instructions .Route 08/15/24 10/04/24 Rx .COMPLEX #90 tabs tramadol 50 mg tablet 50 mg PO Q6H PRN pain #60 tabs 08/23/24 10/04/24 Rx cephalexin 250 mg capsule 250 mg PO DAILY #90 caps 08/31/24 10/04/24 Rx famotidine 20 mg tablet 20 mg PO HS For GI protection #30 09/05/24 10/04/24 Rx tabs naproxen 500 mg tablet 500 mg PO BID PRN Pain or 09/05/24 10/04/24 Rx inflammation #60 tabs celecoxib 100 mg capsule (Celebrex) 100 mg PO BID #60 caps 09/19/24 10/04/24 Rx gabapentin 300 mg capsule See Rx Instructions .Route 10/19/24 Rx .COMPLEX #90 caps tamsulosin 0.4 mg capsule See Rx Instructions .Route 10/23/24 Rx .COMPLEX #90 caps New Prescriptions to Start Prescriptions: Allergies Allergy/AdvReac Type Severity Reaction Status Date / Time Sulfa (Sulfonamide Allergy Intermediate Rash Verified 10/04/24 09:05 Antibiotics) Assessment and Plan *Assessment and plan (1) Sacroiliitis: Status: Acute Category: Medical Code(s): M46.1 - Sacroiliitis, not elsewhere classified Plan Patient still continues to get significant relief from his first left sacroiliac joint injection and does not require any additional injections at this time. I did discuss with the patient if he ends up having increasing pain between now and his next visit he can call and be moved up. Patient acknowledges understanding agrees with this plan of care. Patient will return to clinic in 3 months for reevaluation of symptoms and plan of care. Patient has been instructed to contact the clinic with any concerns before the next appointment. Dr. Thibodeaux has reviewed this note and agrees with this plan of care. This note was dictated using voice recognition software and make contain errors or omissions. All injections are used with Lidocaine, Bupivacaine and Depo Medrol. Occasionally urine drug screen is needed to verify patient's compliance with our office pain contract. This is ordered based off specific treatments related to chronic pain with the potential to abuse certain medications.
[2024-10-30 09:26] VITALS: BP 128/72; PULSE 97; RESP 16; O2SAT 97; BMI 27.8
== END 2024-10-30 23:59 | disposition home or self-care (01) ==
LOC: SC.PAIN 09:10
PROVIDERS: PCP Internal Medicine; Visit Provider Nurse Practitioner Family
DX: M46.1 Sacroiliitis, not elsewhere classified (principal); Z79.899 Other long term (current) drug therapy
CPT/HCPCS: 99212; G0463

== ENCOUNTER 2024-11-17 13:21 | Outpatient (POV) | payer BC, MEDICARE, SELFPAY ==
--- NOTE | 2024-11-17 13:59 | A.OFFVIS_ITS ---
[facility] Disclaimer: The information contained in this section may have been updated after the patient was seen, as this information can be updated by other users. Medical History COPD mixed type Chronic dyspnea Multiple pulmonary nodules ILD (interstitial lung disease) Restrictive lung disease History of 2019 novel coronavirus disease (COVID-19) Dyspnea on exertion Exposure to COVID-19 virus Surgical History History of surgery on arm History of nasal surgery History of cholecystectomy History of non-cataract eye surgery History of lumbar surgery Family History Mother Lung disease Social History Smoking Status: Never smoker alcohol intake: never substance use type: denies use current occupational status: other Travel in the last 8 weeks: None household members: none housing: house PM Subjective & Objective Subjective Subjective:: Patient is a pleasant 69-year-old male who presents today for worsening pain. He does rate his pain today a 3 out of 10 however states when the pain increases it will go above the 5 or more. He states that he has had a fall from our last visit related to this now. He denies any injury. He states he has been going to physical therapy however has not made any changes to his pain. Patient states most of his symptoms are all in his low back/buttocks area that does have tingling down into his bilateral legs. Patient does have a longstanding history of chronic knee pain. He states he is interested in any help we may be able to provide as the pain is interfering with his ability perform activities of daily living such as cooking and cleaning. Patient did previously have a left SI injection back in August that did provide 90% relief and is still continuing to work. He states this is not the same pain. Patient has continued c onservative treatment with no additional relief. His Jayant has been reviewed and is appropriate. Review of Systems: General: No recent weight changes, no fever, no sleep disturbances Respiratory: No cough, no shortness of air, no recurring pulmonary infections Cardiovascular/peripheral vascular: No chest pain, no palpitations, no edema, no shortness of breath Gastrointestinal: No new onset incontinence, normal bowel movements reported Genitourinary: No new onset incontinence Musculoskeletal: Low back/buttocks pain, bilateral knee pain, bilateral leg tingling Psychiatric: [Normal mood/affect] Neurological: [Denies weakness in extremities], [denies balance issues] Pain at rest (0-10 scale): 5 Objective Objective:: Physical Exam: General: Alert and oriented x3, no acute distress, pleasant and cooperative Lungs: Respirations even and unlabored, symmetrical chest expansion Eyes: PERRL Musculoskeletal: Flexion and extension of lumbar [spine] somewhat guarded secondary to pain, [antalgic gait noted] positive leg raise Neurological: Speech clear, no gross sensory deficit Has patient had previous pain injection?: No Conservative treatment options previously tried: Home exercise plan Length of treatment: Longer than 12 weeks and Physical Therapy Length of treatment: Ongoing Meds Home Medications and Allergies Home Medications ?Medication ?Instructions ?Recorded ?Confirmed ?Type aspirin 81 mg tablet,delayed 81 mg PO DAILY preventitive 02/21/19 10/30/24 History release albuterol sulfate 90 mcg/actuation 1 inh inhalation QID PRN shortness 12/25/20 10/30/24 Rx aerosol inhaler of breath or wheezing #8.5 grams fenofibrate 160 mg tablet 160 mg PO DAILY triglycerides 02/19/21 10/30/24 History fexofenadine 60 mg tablet 60 mg PO DAILY allergies 02/19/21 10/30/24 History azelastine 137 mcg (0.1 %) nasal See Rx Instructions .Route 10/04/23 10/30/24 Rx spray .COMPLEX #90 mL finasteride 5 mg tablet See Rx Instructions .Route 04/29/24 10/30/24 Rx .COMPLEX #90 tabs montelukast 10 mg tablet 10 mg PO DAILY #90 tabs 04/29/24 10/30/24 Rx rosuvastatin 10 mg tablet See Rx Instructions .Route 05/23/24 10/30/24 Rx .COMPLEX #90 tabs sertraline 50 mg tablet See Rx Instructions .Route 05/23/24 10/30/24 Rx .COMPLEX #90 tabs valsartan 160 mg tablet See Rx Instructions .Route 05/23/24 10/30/24 Rx .COMPLEX #90 tabs fluticasone 500 mcg-salmeterol 50 1 inh inhalation BID 90 days #60 ea 06/13/24 10/30/24 Rx mcg/dose blistr powdr for inhalation (Wixela Inhub) trazodone 50 mg tablet See Rx Instructions .Route 07/07/24 10/30/24 Rx .COMPLEX #180 tabs codeine 10 mg-guaifenesin 200 mg/5 See Rx Instructions PO Q4-6H PRN 07/19/24 10/30/24 Rx mL oral liquid cold symptoms/cough #473 mL diltiazem HCl 240 mg See Rx Instructions .Route 07/26/24 10/30/24 Rx capsule,extended release 24 hr .COMPLEX #90 caps levothyroxine 112 mcg tablet See Rx Instructions .Route 08/15/24 10/30/24 Rx .COMPLEX #90 tabs tramadol 50 mg tablet 50 mg PO Q6H PRN pain #60 tabs 08/23/24 10/30/24 Rx celecoxib 100 mg capsule (Celebrex) 100 mg PO BID #60 caps 09/19/24 10/30/24 Rx gabapentin 300 mg capsule See Rx Instructions .Route 10/19/24 10/30/24 Rx .COMPLEX #90 caps tamsulosin 0.4 mg capsule See Rx Instructions .Route 10/23/24 10/30/24 Rx .COMPLEX #90 caps levofloxacin 750 mg tablet 750 mg PO DAILY #7 tabs 10/30/24 10/30/24 Rx prednisone 10 mg tablet 10 mg PO DIRECTED #32 tabs 10/30/24 10/30/24 Rx famotidine 20 mg tablet 20 mg PO HS For GI protection #30 11/02/24 Rx tabs naproxen 500 mg tablet 500 mg PO BID PRN Pain or 11/02/24 Rx inflammation #60 tabs New Prescriptions to Start Prescriptions: Allergies Allergy/AdvReac Type Severity Reaction Status Date / Time Sulfa (Sulfonamide Allergy Intermediate Rash Verified 10/30/24 11:10 Antibiotics) Assessment and Plan *Assessment and plan (1) Degenerative disc disease: Status: Acute Category: Medical (2) Lumbar radiculopathy: Status: Acute Category: Medical Code(s): M54.16 - Radiculopathy, lumbar region (3) Bilateral knee pain: Status: Acute Category: Medical Code(s): M25.561 - Pain in right knee; M25.562 - Pain in left knee Plan Patient is experiencing worsening pain in his low back with numbness and tingling into his lower extremities. Patient did have limited range of motion of his lumbar spine with a positive leg raise. I did discuss with patient that I do believe they would benefit from a lumbar epidural steroid injection. Risk and benefits were discussed with patient and the patient would like to proceed forward with this plan of care. Patient is not on any blood thinners. Patient has tried and failed conservative therapy including continued at home stretching exercise for longer than 12 weeks between injections. Patient has not had any epidurals with our office. We will schedule the patient for an LESI L4-L5 under fluoroscopy. Patient does have a previous fusion at this level and if we are unable to access this location we will plan on an L5-S1. FINDINGS: Bones/joints: No acute fracture or malalignment. L4-L5 posterior instrumented fusion with interbody spacer appears in satisfactory alignment without evidence of loosening or fracture. Mild-moderate multilevel disc space narrowing, osteophyte formation, bilateral facet hypertrophy. Superior central endplate Schmorl's node depression at L1. Soft tissues: No soft tissue abnormality. IMPRESSION: 1. No acute fracture or malalignment. 2. [id number] multilevel degenerative change in the lumbar spine, status post L4-L5 posterior instrumented fusion. No evidence of hardware complication. Patient has been instructed to contact the clinic with any concerns before the next appointment. Dr. Thibodeaux has reviewed this note and agrees with this plan of care. This note was dictated using voice recognition software and make contain errors or omissions. All injections are used with Lidocaine, Bupivacaine and Depo Medrol. Occasionally urine drug screen is needed to verify patient's compliance with our office pain contract. This is ordered based off specific treatments related to chronic pain with the potential to abuse certain medications.
[2024-11-17 14:17] VITALS: BP 119/72; PULSE 85; RESP 18; O2SAT 96; BMI 27.8
== END 2024-11-17 23:59 | disposition home or self-care (01) ==
LOC: SC.PAIN 13:23
PROVIDERS: PCP Internal Medicine; Visit Provider Nurse Practitioner Family
DX: M54.16 Radiculopathy, lumbar region (principal); M25.561 Pain in right knee; M25.562 Pain in left knee; Z73.89 Other problems related to life management difficulty; Z79.899 Other long term (current) drug therapy
CPT/HCPCS: 99212; G0463

== ENCOUNTER 2024-11-22 11:03 | Outpatient (POV) | payer BC, MEDICARE, SELFPAY ==
--- NOTE | 2024-11-22 12:23 | A.OFFVIS_ITS ---
[facility] Disclaimer: The information contained in this section may have been updated after the patient was seen, as this information can be updated by other users. Medical History COPD mixed type Chronic dyspnea Multiple pulmonary nodules ILD (interstitial lung disease) Restrictive lung disease History of 2019 novel coronavirus disease (COVID-19) Dyspnea on exertion Exposure to COVID-19 virus Surgical History History of surgery on arm History of nasal surgery History of cholecystectomy History of non-cataract eye surgery History of lumbar surgery Family History Mother Lung disease Social History Smoking Status: Never smoker alcohol intake: never substance use type: denies use current occupational status: retired Travel in the last 8 weeks: None household members: none housing: house PM Subjective & Objective Subjective Subjective:: Patient is a pleasant 69-year-old male who presents today for insurance denial of lumbar epidural steroid injection. Today he rates his pain a 20 out of 10. Patient states that he is just having severe pain in and around his low back and buttocks area. He does state that the numbness and tingling into his legs has subsided to some extent. He does state that the pain seems to all radiate right now from his lower buttocks on the right side. He describes it as a sharp achy, throbbing sensation that is worse with prolonged positioning. He states that he has a lot of difficulty getting up and down due to this pain. He states that he would like to see about injections because it is interfering with all aspects of his activities of daily living as well as sleeping. Patient has continued conservative treatment with no additional improvement. He does present today having to use a cane due to the worsening pain. His Jayant has been reviewed and is appropriate. Review of Systems: General: No recent weight changes, no fever, no sleep disturbances Respiratory: No cough, no shortness of air, no recurring pulmonary infections Cardiovascular/peripheral vascular: No chest pain, no palpitations, no edema, no shortness of breath Gastrointestinal: No new onset incontinence, normal bowel movements reported Genitourinary: No new onset incontinence Musculoskeletal: Low back, right buttocks pain Psychiatric: [Normal mood/affect] Neurological: [Denies weakness in extremities], [denies balance issues] Pain at rest (0-10 scale): 20 Objective Objective:: Physical Exam: General: Alert and oriented x3, no acute distress, pleasant and cooperative Lungs: Respirations even and unlabored, symmetrical chest expansion Eyes: PERRL Musculoskeletal: Flexion and extension of lumbar [spine] somewhat guarded secondary to pain, [antalgic gait noted] extreme point tenderness on right piriformis muscle Neurological: Speech clear, no gross sensory deficit Has patient had previous pain injection?: No Conservative treatment options previously tried: Home exercise plan Length of treatment: Longer than 12 weeks Meds Home Medications and Allergies Home Medications ?Medication ?Instructions ?Recorded ?Confirmed ?Type aspirin 81 mg tablet,delayed 81 mg PO DAILY preventitive 02/21/19 11/22/24 History release albuterol sulfate 90 mcg/actuation 1 inh inhalation QID PRN shortness 12/25/20 11/22/24 Rx aerosol inhaler of breath or wheezing #8.5 grams fenofibrate 160 mg tablet 160 mg PO DAILY triglycerides 02/19/21 11/22/24 History fexofenadine 60 mg tablet 60 mg PO DAILY allergies 02/19/21 11/22/24 History azelastine 137 mcg (0.1 %) nasal See Rx Instructions .Route 10/04/23 11/22/24 Rx spray .COMPLEX #90 mL finasteride 5 mg tablet See Rx Instructions .Route 04/29/24 11/22/24 Rx .COMPLEX #90 tabs montelukast 10 mg tablet 10 mg PO DAILY #90 tabs 04/29/24 11/22/24 Rx rosuvastatin 10 mg tablet See Rx Instructions .Route 05/23/24 11/22/24 Rx .COMPLEX #90 tabs sertraline 50 mg tablet See Rx Instructions .Route 05/23/24 11/22/24 Rx .COMPLEX #90 tabs valsartan 160 mg tablet See Rx Instructions .Route 05/23/24 11/22/24 Rx .COMPLEX #90 tabs fluticasone 500 mcg-salmeterol 50 1 inh inhalation BID 90 days #60 ea 06/13/24 11/22/24 Rx mcg/dose blistr powdr for inhalation (Wixela Inhub) trazodone 50 mg tablet See Rx Instructions .Route 07/07/24 11/22/24 Rx .COMPLEX #180 tabs codeine 10 mg-guaifenesin 200 mg/5 See Rx Instructions PO Q4-6H PRN 07/19/24 11/22/24 Rx mL oral liquid cold symptoms/cough #473 mL diltiazem HCl 240 mg See Rx Instructions .Route 07/26/24 11/22/24 Rx capsule,extended release 24 hr .COMPLEX #90 caps levothyroxine 112 mcg tablet See Rx Instructions .Route 08/15/24 11/22/24 Rx .COMPLEX #90 tabs tramadol 50 mg tablet 50 mg PO Q6H PRN pain #60 tabs 08/23/24 11/22/24 Rx celecoxib 100 mg capsule (Celebrex) 100 mg PO BID #60 caps 09/19/24 11/22/24 Rx gabapentin 300 mg capsule See Rx Instructions .Route 10/19/24 11/22/24 Rx .COMPLEX #90 caps tamsulosin 0.4 mg capsule See Rx Instructions .Route 10/23/24 11/22/24 Rx .COMPLEX #90 caps levofloxacin 750 mg tablet 750 mg PO DAILY #7 tabs 10/30/24 11/22/24 Rx prednisone 10 mg tablet 10 mg PO DIRECTED #32 tabs 10/30/24 11/22/24 Rx famotidine 20 mg tablet 20 mg PO HS For GI protection #30 11/02/24 11/22/24 Rx tabs naproxen 500 mg tablet 500 mg PO BID PRN Pain or 11/02/24 11/22/24 Rx inflammation #60 tabs cefdinir 300 mg capsule 300 mg PO BID #20 caps 11/22/24 11/22/24 Rx New Prescriptions to Start Prescriptions: Allergies Allergy/AdvReac Type Severity Reaction Status Date / Time Sulfa (Sulfonamide Allergy Intermediate Rash Verified 11/22/24 09:56 Antibiotics) Assessment and Plan *Assessment and plan (1) Lumbar radiculopathy: Status: Acute Category: Medical Code(s): M54.16 - Radiculopathy, lumbar region (2) Degenerative disc disease: Status: Acute Category: Medical (3) Piriformis syndrome of right side: Status: Acute Category: Medical Code(s): G57.01 - Lesion of sciatic nerve, right lower limb Plan Patient is experiencing severe pain in and around his low back and buttocks area on the right side. Patient did have a negative FABERs however did have extreme point tenderness along his right piriformis muscle. I did discuss with the patient that I do believe he would benefit from a piriformis injection. Risk and benefits were discussed with the patient and he would like to proceed forward with this plan of care. I did also discuss with the patient due to his prior CT not giving as detailed of report that I would like to proceed forward with an MRI without contrast of his lumbar spine. Patient agrees with this plan of care. Patient does have a history of a brain shunt for the last 3 years and does state that we would have to make sure to coordinate with [facility] to have this device reprogrammed to be set up for the MRI. He does state that we can reach out to Latanya Becker PA-C at [phone] once we have insurance approval for the imaging. We will follow-up with this on upcoming visits. Patient will be scheduled for a right piriformis injection. This will be done without fluoroscopic or ultrasound guidance. Patient has been instructed to contact the clinic with any concerns before the next appointment. Dr. Thibodeaux has reviewed this note and agrees with this plan of care. This note was dictated using voice recognition software and make contain errors or omissions. All injections are used with Lidocaine, Bupivacaine and Depo Medrol. Occasionally urine drug screen is needed to verify patient's compliance with our office pain contract. This is ordered based off specific treatments related to chronic pain with the potential to abuse certain medications.
[2024-11-22 15:40] VITALS: BP 122/75; PULSE 87; RESP 14; O2SAT 96; BMI 27.7
== END 2024-11-22 23:59 | disposition home or self-care (01) ==
LOC: SC.PAIN 11:05
PROVIDERS: PCP Internal Medicine; Visit Provider Nurse Practitioner Family
DX: M54.16 Radiculopathy, lumbar region (principal); G57.01 Lesion of sciatic nerve, right lower limb; Z73.89 Other problems related to life management difficulty; Z79.899 Other long term (current) drug therapy
CPT/HCPCS: 99212; G0463

== ENCOUNTER 2024-11-28 09:33 | Day surgery (SDC) | payer BC, MEDICARE, SELFPAY ==
[2024-11-28 09:40] VITALS: BP 122/72; PULSE 81; RESP 16; TEMP 36.4; O2SAT 97; BMI 27.8
[2024-11-28] MEDS: methylPREDNISolone ACETATE 80MG/ML VIAL 80 MG (10:01)
[2024-11-28] MEDS: BUPIVACAINE 0.25% 10ML INJ 25 MG IJ (10:01)
[2024-11-28 10:02] VITALS: BP 122/72; PULSE 81; RESP 18; O2SAT 97
[2024-11-28] MEDS: LIDOCAINE 1% 5ML PF VIAL 5 ML (10:02)
[2024-11-28 10:10] VITALS: BP 122/72; PULSE 81; RESP 18; O2SAT 97
[2024-11-28 10:13] VITALS: BP 121/66; PULSE 68; RESP 16; O2SAT 98
--- NOTE | 2024-11-28 10:19 | P.PCN_ITS ---
Procedure Date: 11/28/24 Time: 09:50 Anesthesiologist:: Ren Pierre CRNA Complications:: None Pre-procedure Diagnosis:: Right piriformis syndrome Post-procedure Diagnosis:: Same Indications for Procedure:: Patient is a pleasant 69-year-old male who comes our clinic today for right piriformis injection. Patient describes right posterior hip pain. Right low lumbar back pain off the midline. Difficulty with sitting. Difficulty with ambulation. He rates his pain 8/10. Procedure Details:: Details of the procedure explained to the patient. The patient taken procedure and placed in the prone position on fluoroscopy table. They over the right buttock was cleaned using chlorhexidine as a cleansing solution. Using a 22- gauge 3 and half inch needle of the right piriformis muscle was accessed with ease. Needle position was verified using contrast dye and a lateral spread. After negative aspiration 2 cc of 1% lidocaine +2 cc of 0.25% Marcaine +40 mg Depo-Medrol was injected. Patient tolerated procedure without difficulty. The re are no complications. Plan and Disposition:: Patient was discharged without incident.
== END 2024-11-28 10:13 | disposition home or self-care (01) ==
PROVIDERS: PCP Internal Medicine; Visit Provider Nurse Anesthetist, Certified Registered
DX: G57.01 Lesion of sciatic nerve, right lower limb (principal)
CPT/HCPCS: 20552; 77002; J1010

== ENCOUNTER 2024-12-11 15:33 | Outpatient (POV) | payer BC, MEDICARE, SELFPAY ==
[2024-12-11 15:56] VITALS: BP 123/72; PULSE 95; RESP 14; O2SAT 96; BMI 27.8
--- NOTE | 2024-12-11 16:08 | EXP.PAIN.SOA ---
[facility] Disclaimer: The information contained in this section may have been updated after the patient was seen, as this information can be updated by other users. Medical History COPD mixed type Chronic dyspnea Multiple pulmonary nodules ILD (interstitial lung disease) Restrictive lung disease History of 2019 novel coronavirus disease (COVID-19) Dyspnea on exertion Exposure to COVID-19 virus Surgical History History of surgery on arm History of nasal surgery History of cholecystectomy History of non-cataract eye surgery History of lumbar surgery Family History Mother Lung disease Social History Smoking Status: Never smoker alcohol intake: never substance use type: denies use current occupational status: other Travel in the last 8 weeks: None household members: none housing: house PM Subjective & Objective Subjective Subjective:: Patient is a pleasant 69-year-old male who presents today for follow-up of right piriformis injection on 11/28/2024. He does rate his pain today a 0 out of 10 in this area and states that he did have 75% improvement. He states that he did take about 10 days for it really to kick in but really has helped since. Patient states the pain is not like what it was and he is able to move around easier. He does however state that he has been having a lot more pain primarily in his right knee but does state that he also has pain in the left knee as well. Patient does state that he has had chronic knee pain for years and has gotten even injections in the past. He states that he had a left knee injection not that long ago that he believes was September that did provide significant improvement from his orthopedic provider. He does state that he has not been back to see them since. Patient does state that he does get significant relief with these injections of more than 50% and is interested in repeating them. Patient does state that he did have a knee scope in the past that he believed was more the left knee and denied any total knee replacements. Patient at our last visit did also get sent for a MRI however he states that he has not heard any updated news on this. Patient does have a brain shunt that we will have to get approval with and therefore has to have the imaging done at . His Jayant has been reviewed and is appropriate. Review of Systems: General: No recent weight changes, no fever, no sleep disturbances Respiratory: No cough, no shortness of air, no recurring pulmonary infections Cardiovascular/peripheral vascular: No chest pain, no palpitations, no edema, no shortness of breath Gastrointestinal: No new onset incontinence, normal bowel movements reported Genitourinary: No new onset incontinence Musculoskeletal: Bilateral knee pain Psychiatric: [Normal mood/affect] Neurological: [Denies weakness in extremities], [denies balance issues] Pain at rest (0-10 scale): 5 Objective Objective:: Physical Exam: General: Alert and oriented x3, no acute distress, pleasant and cooperative Lungs: Respirations even and unlabored, symmetrical chest expansion Eyes: PERRL Musculoskeletal: Flexion and extension of bilateral knees somewhat guarded secondary to pain, [antalgic gait noted] Neurological: Speech clear, no gross sensory deficit Has patient had previous pain injection?: Yes Percent improvement in pain since last injection: 75% Conservative treatment options previously tried: Home exercise plan Length of treatment: Longer than 12 weeks Meds Home Medications and Allergies Home Medications ?Medication ?Instructions ?Recorded ?Confirmed ?Type aspirin 81 mg tablet,delayed 81 mg PO DAILY preventitive 02/21/19 12/11/24 History release albuterol sulfate 90 mcg/actuation 1 inh inhalation QID PRN shortness 12/25/20 12/11/24 Rx aerosol inhaler of breath or wheezing #8.5 grams fenofibrate 160 mg tablet 160 mg PO DAILY triglycerides 02/19/21 12/11/24 History fexofenadine 60 mg tablet 60 mg PO DAILY allergies 02/19/21 12/11/24 History azelastine 137 mcg (0.1 %) nasal See Rx Instructions .Route 10/04/23 12/11/24 Rx spray .COMPLEX #90 mL finasteride 5 mg tablet See Rx Instructions .Route 04/29/24 12/11/24 Rx .COMPLEX #90 tabs montelukast 10 mg tablet 10 mg PO DAILY #90 tabs 04/29/24 12/11/24 Rx fluticasone 500 mcg-salmeterol 50 1 inh inhalation BID 90 days #60 ea 06/13/24 12/11/24 Rx mcg/dose blistr powdr for inhalation (Wixela Inhub) trazodone 50 mg tablet See Rx Instructions .Route 07/07/24 12/11/24 Rx .COMPLEX #180 tabs diltiazem HCl 240 mg See Rx Instructions .Route 07/26/24 12/11/24 Rx capsule,extended release 24 hr .COMPLEX #90 caps levothyroxine 112 mcg tablet See Rx Instructions .Route 08/15/24 12/11/24 Rx .COMPLEX #90 tabs tramadol 50 mg tablet 50 mg PO Q6H PRN pain #60 tabs 08/23/24 12/11/24 Rx celecoxib 100 mg capsule (Celebrex) 100 mg PO BID #60 caps 09/19/24 12/11/24 Rx gabapentin 300 mg capsule See Rx Instructions .Route 10/19/24 12/11/24 Rx .COMPLEX #90 caps tamsulosin 0.4 mg capsule See Rx Instructions .Route 10/23/24 12/11/24 Rx .COMPLEX #90 caps naproxen 500 mg tablet 500 mg PO BID PRN Pain or 11/02/24 12/11/24 Rx inflammation #60 tabs rosuvastatin 10 mg tablet See Rx Instructions .Route 12/01/24 12/11/24 Rx .COMPLEX #90 tabs sertraline 50 mg tablet See Rx Instructions .Route 12/01/24 12/11/24 Rx .COMPLEX #90 tabs valsartan 160 mg tablet See Rx Instructions .Route 12/01/24 12/11/24 Rx .COMPLEX #90 tabs famotidine 20 mg tablet 20 mg PO HS For GI protection #90 12/07/24 12/11/24 Rx tabs New Prescriptions to Start Prescriptions: Allergies Allergy/AdvReac Type Severity Reaction Status Date / Time Sulfa (Sulfonamide Allergy Intermediate Rash Verified 11/28/24 09:42 Antibiotics) Assessment and Plan *Assessment and plan (1) Bilateral knee pain: Status: Acute Category: Medical Code(s): M25.561 - Pain in right knee; M25.562 - Pain in left knee Plan Patient has had significant improvement following his piriformis muscle injection and does not require any additional injections at this location however he is having increased pain in his bilateral knees. Patient did have limited range of motion during today's exam. I did review over risk and benefits of bilateral knee intra-articular injections and he would like to proceed forward with this plan of care. Patient has tried and failed conservative therapy including continued at home stretching exercise for longer than 12 weeks in between injections. Patient was also counseled that his MRI is still going through the process of getting approval there at and that this would generally take a little bit longer and scheduling here locally. Patient acknowledges understanding agrees with plan of care. Patient will be scheduled for bilateral intra-articular knee injections. These will be done without fluoroscopic guidance or ultrasound. Patient has been instructed to contact the clinic with any concerns before the next appointment. Dr. Thibodeaux has reviewed this note and agrees with this plan of care. This note was dictated using voice recognition software and make contain errors or omissions. All injections are used with Lidocaine, Bupivacaine and Depo Medrol. Occasionally urine drug screen is needed to verify patient's compliance with our office pain contract. This is ordered based off specific treatments related to chronic pain with the potential to abuse certain medications.
== END 2024-12-11 23:59 | disposition home or self-care (01) ==
PROVIDERS: PCP Internal Medicine; Visit Provider Nurse Practitioner Family
DX: M25.561 Pain in right knee (principal); M25.562 Pain in left knee; Z79.899 Other long term (current) drug therapy
CPT/HCPCS: 99212; G0463

== ENCOUNTER 2024-12-22 22:10 | Inpatient (IN) | payer BC, MEDICARE, SELFPAY ==
[2024-12-22 22:45] VITALS: BP 144/82; PULSE 105; O2SAT 92
[2024-12-22 22:52] VITALS: BP 147/81; PULSE 104; RESP 17; TEMP 36.8; O2SAT 92; BMI 25.8
[2024-12-22 23:00] VITALS: BP 149/87; PULSE 98; O2SAT 87
--- NOTE | 2024-12-22 23:10 | ED_ITS ---
Discharge Plan Disposition Patient Disposition: Admitted Prescriptions Prescriptions: No Action fluticasone propion-salmeterol [Wixela Inhub] 500-50 mcg/dose blister with device 1 inh inhalation BID 90 Days Qty: 60 3RF albuterol sulfate 90 mcg/actuation HFA aerosol inhaler 1 inh INHALATION QID PRN (Reason: shortness of breath or wheezing) Qty: 8.5 4RF amoxicillin-pot clavulanate 875-125 mg tablet 1 tab PO BID Qty: 20 0RF Rx Instructions: Take with meals codeine-guaifenesin 10-100 mg/5 mL liquid See Rx Instructions PO Q6H PRN (Reason: cough) Qty: 240 0RF Rx Instructions: 1 or 2 teaspoons orally every 6 hours PRN; azelastine 137 mcg (0.1 %) aerosol,spray See Rx Instructions .ROUTE .COMPLEX Qty: 90 0RF Dose Instruction: SPRAY 1 SPRAY INTO EACH NOSTRIL TWICE A DAY NEEDED FOR ALLERGIES Rx Instructions: SPRAY 1 SPRAY INTO EACH NOSTRIL TWICE A DAY NEEDED FOR ALLERGIES finasteride 5 mg tablet See Rx Instructions .ROUTE .COMPLEX Qty: 90 1RF Dose Instruction: TAKE 1 TABLET BY MOUTH EVERY DAY FOR 90 DAYS Rx Instructions: TAKE 1 TABLET BY MOUTH EVERY DAY FOR 90 DAYS montelukast 10 mg tablet 10 mg PO DAILY Qty: 90 1RF trazodone 50 mg tablet See Rx Instructions .ROUTE .COMPLEX Qty: 180 1RF Dose Instruction: TAKE 1-2 TABLETS EACH EVENING NEEDED FOR INSOMNIA FOR 90 DAYS Rx Instructions: TAKE 1-2 TABLETS EACH EVENING NEEDED FOR INSOMNIA FOR 90 DAYS diltiazem HCl 240 mg capsule,extended release 24hr See Rx Instructions .ROUTE .COMPLEX Qty: 90 1RF Dose Instruction: TAKE 1 CAPSULE BY MOUTH EVERY DAY Rx Instructions: TAKE 1 CAPSULE BY MOUTH EVERY DAY levothyroxine 112 mcg tablet See Rx Instructions .ROUTE .COMPLEX Qty: 90 1RF Dose Instruction: TAKE ONE TABLET BY MOUTH EVERY DAY Rx Instructions: TAKE ONE TABLET BY MOUTH EVERY DAY tramadol 50 mg tablet 50 mg PO Q6H PRN (Reason: pain) Qty: 60 0RF gabapentin 300 mg capsule See Rx Instructions .ROUTE .COMPLEX Qty: 90 2RF Dose Instruction: TAKE 1 CAPSULE BY MOUTH EVERY MORNING & 2 CAPSULES EVERY EVENING FOR PAIN Rx Instructions: TAKE 1 CAPSULE BY MOUTH EVERY MORNING & 2 CAPSULES EVERY EVENING FOR PAIN tamsulosin 0.4 mg capsule See Rx Instructions .ROUTE .COMPLEX Qty: 90 1RF Dose Instruction: TAKE 1 CAPSULE BY MOUTH AT BEDTIME Rx Instructions: TAKE 1 CAPSULE BY MOUTH AT BEDTIME naproxen 500 mg tablet 500 mg PO BID PRN (Reason: Pain or inflammation) Qty: 60 1RF Rx Instructions: Take with food or meal valsartan 160 mg tablet See Rx Instructions .ROUTE .COMPLEX Qty: 90 1RF Dose Instruction: TAKE 1 TABLET BY MOUTH EVERY DAY Rx Instructions: TAKE 1 TABLET BY MOUTH EVERY DAY rosuvastatin 10 mg tablet See Rx Instructions .ROUTE .COMPLEX Qty: 90 1RF Dose Instruction: TAKE 1 TABLET BY MOUTH EVERY DAY Rx Instructions: TAKE 1 TABLET BY MOUTH EVERY DAY sertraline 50 mg tablet See Rx Instructions .ROUTE .COMPLEX Qty: 90 1RF Dose Instruction: TAKE 1 TABLET BY MOUTH EVERY DAY Rx Instructions: TAKE 1 TABLET BY MOUTH EVERY DAY famotidine 20 mg tablet 20 mg PO HS Qty: 90 1RF celecoxib 100 mg capsule See Rx Instructions .ROUTE .COMPLEX Qty: 60 2RF Dose Instruction: TAKE 1 CAPSULE BY MOUTH TWICE A DAY Rx Instructions: TAKE 1 CAPSULE BY MOUTH TWICE A DAY aspirin 81 MG tablet,delayed release (DR/EC) 81 mg PO DAILY fexofenadine 60 mg tablet 180 mg PO DAILY fenofibrate 160 mg tablet 160 mg PO DAILY Referrals Follow up/Referrals: Cristopher Gray MD [Primary Care Provider] - See instructions Clinical Impressions Clinical Impression: Pneumonia Respiratory failure Qualifiers: Chronicity: acute Respiratory failure complication: hypoxia Qualified Code(s): J96.01 - Acute respiratory failure with hypoxia Print Language Print Language: Occitan Discharge ED Provider: Mark Bae General Adult HPI General Chief complaint: Shortness of Breath/Dyspnea Stated complaint: O2 85 at home, verito Time Seen by Provider: 12/22/24 22:49 Mode of Arrival: Ambulatory Source of Information: Patient Description of Symptoms (Recalled from ER Triage Doc. by RN): He states that when he went to feed this morning he noticed that something wasn't right. He states he checked his O2 sat at it was 70-80s and that a couple other times today he checked it and it was between 80-88. He also states that he went to the home and when he came back he checked it and it was in the 60s but increased to 80s. He states that night he had a temp of 100, but he went to Dr. Gray' office on and was prescribed cough medication and Augmentin. He states he last took the Augmentin this morning. History of Present Illness HPI narrative: 69 male history of COVID and interstitial lung disease presents for worsening shortness of breath and hypoxia. When he woke up this morning he felt more short of breath. He was walking around today and checked his oxygen and it was in the 60s to 80s. His heart rate was also greater than 100. He was seen on of this week and was initiated on Augmentin for presumed treatment of pneumonia. He reports his cough has been okay. He denies fever at home. No history of PE. Denies chest pain. Related Data Home Medications ?Medication ?Instructions ?Recorded ?Confirmed aspirin 81 mg tablet,delayed 81 mg PO DAILY preventitive 02/21/19 12/22/24 release fenofibrate 160 mg tablet 160 mg PO DAILY triglycerides 02/19/21 12/22/24 fexofenadine 60 mg tablet 180 mg PO DAILY allergies 02/19/21 12/22/24 Previous Rx's ?Medication ?Instructions ?Recorded albuterol sulfate 90 mcg/actuation 1 inh inhalation QID PRN shortness 12/25/20 aerosol inhaler of breath or wheezing #8.5 grams azelastine 137 mcg (0.1 %) nasal See Rx Instructions .Route 10/04/23 spray .COMPLEX #90 mL finasteride 5 mg tablet See Rx Instructions .Route 04/29/24 .COMPLEX #90 tabs montelukast 10 mg tablet 10 mg PO DAILY #90 tabs 04/29/24 fluticasone 500 mcg-salmeterol 50 1 inh inhalation BID 90 days #60 ea 06/13/24 mcg/dose blistr powdr for inhalation (Wixela Inhub) trazodone 50 mg tablet See Rx Instructions .Route 07/07/24 .COMPLEX #180 tabs diltiazem HCl 240 mg See Rx Instructions .Route 07/26/24 capsule,extended release 24 hr .COMPLEX #90 caps levothyroxine 112 mcg tablet See Rx Instructions .Route 08/15/24 .COMPLEX #90 tabs tramadol 50 mg tablet 50 mg PO Q6H PRN pain #60 tabs 08/23/24 gabapentin 300 mg capsule See Rx Instructions .Route 10/19/24 .COMPLEX #90 caps tamsulosin 0.4 mg capsule See Rx Instructions .Route 10/23/24 .COMPLEX #90 caps naproxen 500 mg tablet 500 mg PO BID PRN Pain or 11/02/24 inflammation #60 tabs rosuvastatin 10 mg tablet See Rx Instructions .Route 12/01/24 .COMPLEX #90 tabs sertraline 50 mg tablet See Rx Instructions .Route 12/01/24 .COMPLEX #90 tabs valsartan 160 mg tablet See Rx Instructions .Route 12/01/24 .COMPLEX #90 tabs famotidine 20 mg tablet 20 mg PO HS For GI protection #90 12/07/24 tabs celecoxib 100 mg capsule See Rx Instructions .Route 12/18/24 .COMPLEX #60 caps amoxicillin 875 mg-potassium 1 tab PO BID #20 tabs 12/21/24 clavulanate 125 mg tablet codeine 10 mg-guaifenesin 100 mg/5 See Rx Instructions PO Q6H PRN 12/21/24 mL oral liquid cough #240 mL Allergies Allergy/AdvReac Type Severity Reaction Status Date / Time Sulfa (Sulfonamide Allergy Intermediate Rash Verified 12/22/24 22:58 Antibiotics) [facility] Disclaimer: The information contained in this section may have been updated after the patient was seen, as this information can be updated by other users. Medical History COPD mixed type Chronic dyspnea Multiple pulmonary nodules ILD (interstitial lung disease) Restrictive lung disease History of 2019 novel coronavirus disease (COVID-19) Dyspnea on exertion Exposure to COVID-19 virus Surgical History History of surgery on arm History of nasal surgery History of cholecystectomy History of non-cataract eye surgery History of lumbar surgery Family History Mother Lung disease Social History Smoking Status: Never smoker alcohol intake: never substance use type: denies use current occupational status: other Travel in the last 8 weeks: None household members: none housing: house Have you lived/traveled outside [place] in past 30 days?: No Contact w/someone who lives/traveled outside [place] past 30 days?: No Exposure to someone with infectious disease in past 14 days?: No Do you have a fever (greater than 100.4 F or 38 C)?: No Have you tested positive for COVID-19: No Exposed to someone with COVID-19 in past 14 days?: No Do you have a sore throat?: No Do you have a cough?: No Do you have any weakness?: Yes Do you have any diarrhea?: No Are you experiencing any unusual bleeding?: No Do you have any muscle aches/pain?: No Do you have any abdominal pain?: No Are you experiencing loss of taste or smell?: No Other Medical History Have you received the Flu Vaccine for this season: Yes Have you received the Pneumonia Vaccine: Yes ROS Obtained: Yes All systems reviewed & no additional complaints except as documented Physical Exam General General appearance: alert and in no apparent distress Head Head exam: atraumatic and normocephalic Eye Eye exam: Present normal appearance, PERRL and EOMI ENT ENT exam: Present normal oropharynx and normal external ear exam Neck Neck exam: Present normal inspection and full ROM Chest Chest inspection: Present normal inspection and symmetric chest wall rise; Absent tenderness Respiratory Respiratory exam: Present normal lung sounds bilaterally and other (Mildly dyspneic) Cardiovascular Cardiovascular exam: Present regular rate and normal rhythm Abdominal Exam Abdominal exam: Present soft; Absent distention, tenderness or guarding Extremities Exam Extremities exam: Present normal inspection and edema (Minimal); Absent joint swelling Back Exam Back exam: Present normal inspection; Absent tenderness Neurological Exam Neurological exam: Present alert and oriented X3; Absent motor sensory deficit Psychiatric Psychiatric exam: Present normal affect and normal mood Skin Skin exam: Present warm, dry and normal color Lymphatic Lymphatic Findings: no adenopathy Medical Decision Making Medical Records Medical records reviewed: Yes I reviewed the patient's medical records. Screening: Per USPSTF and CDC recommendations, given the prevalence of disease in our region, it is our hospital?s policy to screen for HIV and viral Hepatitis for all patients aged 18 and over and those with ongoing risk factors. Jayant Inquiry Pt receiving controlled substance: No Jayant was queried for this patient: No Vital Signs: 12/22/24 22:45 12/22/24 22:52 12/22/24 23:00 Temperature 98.3 F Temperature Source Oral Pulse Rate 105 H 98 H Pulse Rate [Right Brachial] 104 H Respiratory Rate 17 Blood Pressure 144/82 H 149/87 H Blood Pressure [Right Arm] 147/81 H Blood Pressure Mean [Right Arm] 103 Blood Pressure Source [Right Arm] Automatic Cuff Blood Pressure Position [Right Arm] Sitting 02 Sat by Pulse Oximetry 92 L 92 L 87 L Oxygen Delivery Method Room Air Room Air Room Air 12/22/24 23:15 12/22/24 23:30 12/22/24 23:45 Temperature Temperature Source Pulse Rate 91 H 97 H 93 H Pulse Rate [Right Brachial] Respiratory Rate Blood Pressure 145/86 H 144/86 H 128/76 Blood Pressure [Right Arm] Blood Pressure Mean [Right Arm] Blood Pressure Source [Right Arm] Blood Pressure Position [Right Arm] 02 Sat by Pulse Oximetry 89 L 88 L 87 L Oxygen Delivery Method Room Air Room Air Room Air 12/23/24 00:00 12/23/24 00:15 12/23/24 00:30 Temperature Temperature Source Pulse Rate 96 H 94 H 86 Pulse Rate [Right Brachial] Respiratory Rate Blood Pressure 135/72 146/84 H 155/86 H Blood Pressure [Right Arm] Blood Pressure Mean [Right Arm] Blood Pressure Source [Right Arm] Blood Pressure Position [Right Arm] 02 Sat by Pulse Oximetry 87 L 92 L 87 L Oxygen Delivery Method Room Air Room Air Room Air 12/23/24 00:45 12/23/24 01:00 Temperature Temperature Source Pulse Rate 85 88 Pulse Rate [Right Brachial] Respiratory Rate Blood Pressure 131/71 144/81 H Blood Pressure [Right Arm] Blood Pressure Mean [Right Arm] Blood Pressure Source [Right Arm] Blood Pressure Position [Right Arm] 02 Sat by Pulse Oximetry 90 L 91 L Oxygen Delivery Method Room Air Room Air Lab Data Lab results reviewed: Yes I reviewed the patient's lab results. Lab Results 12/22/24 23:10: SARS-CoV-2 (PCR) Not detected, Influenza A Untype (PCR) Not detected, Influenza Type B (PCR) Not detected 12/22/24 23:19: VBG pH 7.38, VBG pCO2 43.8, VBG pO2 48.7 H, VBG HCO3 25.0, VBG Total CO2 26.4, VBG O2 Saturation 83.2 H, VBG Base Excess -0.2, VBG Lactic Acid 1.9 12/22/24 23:40: WBC 10.1, RBC 4.78, Hgb 14.2, Hct 42.2, MCV 88.3, MCH 29.7, MCHC 33.6, RDW 12.9, Plt Count 205, MPV 9.5, Neut % (Auto) 69.0, Lymph % (Auto) 18.2, Sharp % (Auto) 9.2, Eos % (Auto) 2.2, Baso % (Auto) 0.5, Neut # (Auto) 6.9, Lymph # (Auto) 1.8, Sharp # (Auto) 0.9, Eos # (Auto) 0.2, Baso # (Auto) 0.1, PT 14.6 H, INR 1.34 H, Sodium 136, Potassium 4.2, Chloride 101, Carbon Dioxide 30, Anion Gap 9.2, BUN 23 H, Creatinine 0.90, Estimated Creat Clear 78, Estimated GFR 83, Est GFR ( Amer) 101, Glucose 165 H, Calcium 9.5, Magnesium 1.8, Total Bilirubin 0.6, AST 35, ALT 31, Alkaline Phosphatase 170 H, Troponin I < 0.01, NT-Pro-B Natriuret Pep 54.5, Total Protein 7.3, Albumin 4.4, Globulin 2.9, Albumin/Globulin Ratio 1.5 12/22/24 23:40 12/22/24 23:40 Orders (Tests/Meds): ED MEDICATIONS Generic Name Dose Route Start Last Admin Trade Name Freq PRN Reason Stop Dose Admin Ceftriaxone Sodium 1 gm/ 50 mls @ 100 mls/hr 12/23/24 01:33 Sodium Chloride IV 12/23/24 02:02 ONCE ONE Azithromycin 500 mg/ Sodium 250 mls @ 250 mls/hr 12/23/24 01:34 Chloride IV 12/23/24 01:35 ONCE ONE Sodium Chloride 10 ml 12/23/24 00:29 12/23/24 00:30 Sodium Chloride 0.9% 10ml Syr (Rad Only) IV 01/22/25 00:28 10 ml NEEDED PRN Administration Maintain IV Site Discontinued Medications Generic Name Dose Route Start Last Admin Trade Name Freq PRN Reason Stop Dose Admin Iopamidol 70 ml 12/23/24 00:29 12/23/24 00:30 Iopamidol-370 (76%);100ml Bottle IV 12/23/24 00:30 70 ml ONCE ONE Administration Sodium Chloride 40 ml 12/23/24 00:29 12/23/24 00:30 0.9 % Sodium Chloride 50 Ml Vial IV 12/23/24 00:30 40 ml ONCE ONE Administration ORDERS Category Date Time Status CT angio chest PE protocol Stat Cat Scan 12/22/24 23:[address] head/brain wo con Stat Cat Scan 12/23/24 01:19 Ordered BNP [NT Pro Brain Natriuretic Pep.] Stat Lab 12/22/24 23:40 Completed CBC w/Auto Diff [Complete Blood Count Auto Diff] Stat Lab 12/22/24 23:40 Completed CMP [Comprehensive Metabolic Panel] Stat Lab 12/22/24 23:40 Completed INR [Prothrombin Time INR] Stat Lab 12/22/24 23:40 Completed Magnesium Stat Lab 12/22/24 23:40 Completed Rapid PCR Covid and Flu A/B Stat Lab 12/22/24 23:10 Completed Troponin I Q3H Lab 12/22/24 23:40 Completed Troponin I Q3H Lab 12/23/24 02:30 Ordered Blood Culture Stat Micro 12/23/24 01:33 Ordered VBG [Venous Blood Gas] Stat RT 12/22/24 23:19 Completed Medical Decision Narrative: 69-year-old male with history of COVID and interstitial lung disease presents for worsening shortness of breath and hypoxia at home. History was obtained via interactive discussion with patient, family, chart review. On arrival, patient is afebrile, normotensive, satting 88 to 90% on room air, moving all extremities spontaneously. Full physical exam performed and significant for clear lungs bilaterally though patient is mildly dyspneic Differential includes but is not limited to viral/bacterial pneumonia, URI, PE, worsening of interstitial lung disease. Workup initiated including CBC CMP Trope BNP CT PE COVID flu swab. On re-evaluation, patient [remains afebrile, HD stable.] Continues to sat 90% on room air Laboratory workup independently interpreted by me and significant for no significant leukocytosis, mildly elevated INR at 1.3, no acidosis, no significant electrolyte derangement negative initial troponin, negative BNP. Imaging independently interpreted by me and significant for CT without evidence of PE, does show perihilar infiltration in addition to chronic lung changes. See radiology read for full review of final results. Patient was ambulated and dropped to 80% on room air Given patient history, exam and workup, patient's presentation most likely represents acute hypoxic respiratory failure secondary to pneumonia and underlying lung disease. interactive discussion was had with patient regarding his presentation. Interactive discussion was had with hospitalist on-call for admission Procedures Risk/Benefits of Procedure(s) Were Explained: Yes Critical Care Critical Care Time Critical Care Time: No
[2024-12-22 23:15] VITALS: BP 145/86; PULSE 91; O2SAT 89
--- NOTE | 2024-12-22 23:18 | CT_ITS ---
PROCEDURE INFORMATION: Exam: CTA Chest With Contrast Exam date and time: 12/23/2024 12:14 AM Age: 69 years old Clinical indication: Shortness of breath and other: Hypoxia, tachy, SOA, TECHNIQUE: Imaging protocol: Computed tomographic angiography of the chest with contrast. Exam focused on the arteries. 3D rendering (Not supervised by radiologist): MIP and/or 3D reconstructed images were created by the technologist. Radiation optimization: All CT scans at this facility use at least one of these dose optimization techniques: automated exposure control; mA and/or kV adjustment per patient size (includes targeted exams where dose is matched to clinical indication); or iterative reconstruction. Contrast material: ISOUVE 370; Contrast volume: 70 ml; Contrast route: INTRAVENOUS (IV); COMPARISON: CT HR CHEST X3 06/11/2023 7:15 AM FINDINGS: Pulmonary arteries: Normal. No pulmonary emboli. Aorta: Mild atherosclerotic calcification of thoracic aorta. No aneurysm. Lungs: [id number]-left perihilar ground-glass opacity. Underlying mild bronchiectasis and interstitial prominence. Pleural spaces: Unremarkable. No pneumothorax. No pleural effusion. Heart: Unremarkable. No cardiomegaly. No pericardial effusion. Coronary arteries: Mild atherosclerotic calcification of coronary artery. Lymph nodes: Partially calcified lymph nodes without lymphadenopathy. Bones/joints: Unremarkable. No acute fracture. Soft tissues: Unremarkable. IMPRESSION: 1. No central or segmental pulmonary arterial embolism identified. 2. [id number]-left perihilar infiltration.
[2024-12-22 23:30] VITALS: BP 144/86; PULSE 97; O2SAT 88
[2024-12-22 23:45] VITALS: BP 128/76; PULSE 93; O2SAT 87
[2024-12-22 23:49] LABS: Basophils # 0.1 K/mm3 (0-0.2); Basophils % 0.5 % (0.1-2.0); Eosinophils # 0.2 K/mm3 (0.0-0.4); Eosinophils % 2.2 % (0.1-12.0); Hematocrit 42.2 % (42.0-52.0); Hemoglobin 14.2 g/dL (14.1-18.0); Lymphocytes # 1.8 K/mm3 (0.7-4.5); Lymphocytes % 18.2 % (10-50); Mean Corpuscular HGB Conc 33.6 g/dL (31.8-35.4); Mean Corpuscular Hemoglobin 29.7 pg (27.0-31.2); Mean Corpuscular Volume 88.3 fl (80-94); Mean Platelet Volume 9.5 fl (7.4-10.4); Monocytes # 0.9 K/mm3 (0.1-1.0); Monocytes % 9.2 % (1.7-9.3); Neutrophils # 6.9 K/mm3 (1.8-7.8); Platelet Count 205 K/mm3 (142-424); Red Blood Count 4.78 M/mm3 (4.60-6.20); Red Cell Distribution Width 12.9 % (11.5-17.5); White Blood Count 10.1 K/mm3 (4.8-10.8)
[2024-12-22 23:52] LABS: Albumin Level 4.4 g/dl (3.5-5.0); Chloride 101 mmol/L (98-107); Potassium 4.2 mmoL/L (3.5-5.1); Sodium 136 mmol/L (136-145)
[2024-12-22 23:55] LABS: Alanine Aminotransferase 31 U/L (12-78); Albumin/Globulin Ratio 1.5 (1.1-1.8); Alkaline Phosphatase 170 U/L (38-126); Anion Gap 9.2 mEq/L (5-15); Aspartate Amino Transferase 35 U/L (17-59); Bilirubin,Total 0.6 mg/dl (0.2-1.3); Blood Urea Nitrogen 23 mg/dl (9-20); Calcium 9.5 mg/dl (8.4-10.2); Carbon Dioxide 30 mmol/L (22.0-30.0); Creatinine Clearance Estimated 78 mL/min (50-200); Estimated Glomerular Filt Rate 83 ml/min (>60); GFR (African American) 101 ML/MIN (>60); Globulin 2.9 g/dL (1.3-3.2); Glucose 165 mg/dl (74-100); Magnesium 1.8 mg/dl (1.6-2.3); Total Protein,Serum 7.3 g/dl (6.3-8.2)
[2024-12-22 23:57] LABS: INR 1.34 (0.9-1.1); Prothrombin Time 14.6 seconds (10.1-12.5)
[2024-12-23] VITALS (18 sets, daily range): BP systolic 123–159; BP diastolic 58–94; PULSE 80–100; RESP 17–20; TEMP 36.6–36.9; O2SAT 87–96; BMI 27.6; BMI 28.0
[2024-12-23 00:05] LABS: NT Pro Brain Natriuretic Pep. 54.5 pg/mL (0-125)
[2024-12-23 00:07] LABS: Troponin I < 0.01 ng/ml (0.00-0.034)
[2024-12-23 00:19] LABS: Coronavirus 19, PCR Not Detected (NotDetected); Influenza A, PCR Not Detected (NotDetected); Influenza B, PCR Not Detected (NotDetected)
--- NOTE | 2024-12-23 00:19 | PC.NURSE ---
Pt to CT via wheelchair
[2024-12-23 00:28] LABS: Lactate Venous 1.9 mmol/L (0.4-2.0); VBG Base Excess -0.2 mmol/L (-2.4-2.3); VBG Oxygen Saturation 83.2 % (50-70); VBG PCO2 43.8 mmol/L (35-51); VBG PH 7.38 mmol/L (7.31-7.41); VBG PO2 48.7 mmol/L (28-40); VBG Total CO2 26.4 mmol/L (23-27)
[2024-12-23] MEDS: IOPAMIDOL-370 (76%);100ML BOTTLE 70 ML IV (00:30)
[2024-12-23] MEDS: SODIUM CHLORIDE 0.9% 10ML SYR (RAD ONLY) 10 ML IV (00:30)
[2024-12-23] MEDS: 0.9 % SODIUM CHLORIDE 50 ML VIAL 40 ML IV (00:30)
--- NOTE | 2024-12-23 01:36 | PC.NURSE ---
Patient ambulated by tech; Patient dropped from 88% to 80% upon ambulation
[2024-12-23] MEDS: CEFTRIAXONE 1 GM 1 GM in 0.9 % SODIUM CHLORIDE 50 ML IV ×2 (01:51→09:56)
--- NOTE | 2024-12-23 01:53 | PC.NURSE ---
Report given to Kathy RAMON inpatient RN Pt transported to unit in wheelchair by EDT
[2024-12-23] MEDS: AZITHROMYCIN 500 MG in 0.9 % SODIUM CHLORIDE 250 ML 250 MG IV (02:24)
--- NOTE | 2024-12-23 02:26 | P.HP_ITS ---
<Statement entered by Toan Arellano MD - 12/23/24 14:16> Rounded on patient after nurse practitioner. Personally examined and interviewed patient. Agree with exam findings and care plan as documented. Weaned to 1 L nasal cannula this morning. Goal sats greater 90%. White count normal at 8.4. Repeat CBC, CMP, magnesium ordered for the morning. Showing clinical improvement. Continue Augmentin. Kidney function normal with BUN 18, creatinine 0.8. Heart rate controlled at this time. History of Present Illness *Admission Date: 12/23/24 *Reason for visit:: Shortness of breath *History of present illness: A 69-year-old male with a history of COPD, hyperlipidemia, hypertension, A-fib, COVID-19 complications and interstitial lung disease presents, sees Dr. Ugalde, to the emergency department with worsening shortness of breath and hypoxia. He reports that this morning, while feeding, he felt more dyspneic than usual and checked his oxygen saturation, finding it in the 70-80s. Throughout the day, including while walking and after returning from a home, his saturation ranged from 60s to 88%, with a heart rate exceeding 100 bpm. He denies chest pain, fever today, or history of pulmonary embolism. He notes a temperature of 100?F Wednesday night and was seen by Dr. Gray, who prescribed Augmentin and cough medication for presumed pneumonia; he last took Augmentin this morning. His cough has been manageable. History was obtained via interactive discussion with the patient, family, and chart review. On arrival, the patient was afebrile, normotensive, with oxygen saturation 88- 90% on room air. Initial vital signs were not fully specified but noted as hemodynamically stable. Physical exam revealed clear lungs bilaterally despite mild dyspnea.Workup included labs and imaging. Labs showed WBC 10.1 K/?L, BUN 23 mg/dL, creatinine 0.90 mg/dL (eGFR 83 mL/min/1.73m?), glucose 165 mg/dL, INR 1.34, alkaline phosphatase 170 U/L, troponin <0.01 ng/mL, and BNP 54.5 pg/mL; VBG revealed pH 7.38, pCO2 43.8 mmHg, pO2 48.7 mmHg, and saturation 83.2%. CTA chest showed perihilar infiltration and chronic lung changes, with no pulmonary embolism. The patient was ambulated and desaturated to 80% on room air. Given his history, exam, and workup, the presentation most likely represents acute hypoxic respiratory failure secondary to pneumonia and underlying interstitial lung disease. An interactive discussion was held with the patient regarding his condition, and ER physician and hospitalist agreed on admission. The patient was agreeable to inpatient management. [facility] Disclaimer: The information contained in this section may have been updated after the patient was seen, as this information can be updated by other users. Medical History COPD mixed type Chronic dyspnea Multiple pulmonary nodules ILD (interstitial lung disease) Restrictive lung disease History of 2019 novel coronavirus disease (COVID-19) Dyspnea on exertion Exposure to COVID-19 virus Surgical History History of surgery on arm History of nasal surgery History of cholecystectomy History of non-cataract eye surgery History of lumbar surgery Family History Mother Lung disease Social History Smoking Status: Never smoker alcohol intake: never substance use type: denies use current occupational status: other Travel in the last 8 weeks: None household members: none housing: house Have you lived/traveled outside [place] in past 30 days?: No Contact w/someone who lives/traveled outside US past 30 days?: No Exposure to someone with infectious disease in past 14 days?: No Do you have a fever (greater than 100.4 F or 38 C)?: No Have you tested positive for COVID-19: No Exposed to someone with COVID-19 in past 14 days?: No Do you have a sore throat?: No Do you have a cough?: No Do you have any weakness?: Yes Are you experiencing any nausea/vomitting?: No Do you have any diarrhea?: No Are you experiencing any unusual bleeding?: No Do you have any muscle aches/pain?: No Do you have any abdominal pain?: No Are you experiencing loss of taste or smell?: No Other Medical History Have you received the Flu Vaccine for this season: Yes Have you received the Pneumonia Vaccine: Yes Review of Systems Review of Systems Review of systems (narrative): 13 point review of systems negative except as listed in HPI Meds Home Medications and Allergies Home Medications ?Medication ?Instructions ?Recorded ?Confirmed ?Type albuterol sulfate 90 mcg/actuation 1 inh inhalation QID PRN shortness 12/25/20 12/22/24 Rx aerosol inhaler of breath or wheezing #8.5 grams fexofenadine 60 mg tablet 180 mg PO DAILY allergies 02/19/21 12/23/24 History azelastine 137 mcg (0.1 %) nasal See Rx Instructions .Route 10/04/23 12/22/24 Rx spray .COMPLEX #90 mL finasteride 5 mg tablet See Rx Instructions .Route 04/29/24 12/23/24 Rx .COMPLEX #90 tabs montelukast 10 mg tablet 10 mg PO DAILY #90 tabs 04/29/24 12/23/24 Rx trazodone 50 mg tablet See Rx Instructions .Route 07/07/24 12/23/24 Rx .COMPLEX #180 tabs diltiazem HCl 240 mg See Rx Instructions .Route 07/26/24 12/23/24 Rx capsule,extended release 24 hr .COMPLEX #90 caps levothyroxine 112 mcg tablet See Rx Instructions .Route 08/15/24 12/23/24 Rx .COMPLEX #90 tabs gabapentin 300 mg capsule See Rx Instructions .Route 10/19/24 12/23/24 Rx .COMPLEX #90 caps naproxen 500 mg tablet 500 mg PO BID PRN Pain or 11/02/24 12/23/24 Rx inflammation #60 tabs rosuvastatin 10 mg tablet See Rx Instructions .Route 12/01/24 12/23/24 Rx .COMPLEX #90 tabs sertraline 50 mg tablet See Rx Instructions .Route 12/01/24 12/23/24 Rx .COMPLEX #90 tabs valsartan 160 mg tablet See Rx Instructions .Route 12/01/24 12/23/24 Rx .COMPLEX #90 tabs famotidine 20 mg tablet 20 mg PO HS For GI protection #90 12/07/24 12/23/24 Rx tabs celecoxib 100 mg capsule See Rx Instructions .Route 12/18/24 12/23/24 Rx .COMPLEX #60 caps amoxicillin 875 mg-potassium 1 tab PO BID 12/23/24 12/23/24 History clavulanate 125 mg tablet aspirin 81 mg tablet 81 mg PO DAILY 12/23/24 12/23/24 History cephalexin 250 mg tablet 1 mg PO DAILY 12/23/24 12/23/24 History codeine 10 mg-guaifenesin 100 mg/5 5 - 10 ml PO Q4-6H 12/23/24 12/23/24 History mL oral liquid fluticasone 500 mcg-salmeterol 50 1 ea inhalation BID 12/23/24 12/23/24 History mcg/dose blistr powdr for inhalation (Gian Inhub) tamsulosin 0.4 mg capsule 0.4 mg PO DAILY 12/23/24 12/23/24 History New Prescriptions to Start Prescriptions: Allergies Allergy/AdvReac Type Severity Reaction Status Date / Time Sulfa (Sulfonamide Allergy Intermediate Rash Verified 12/22/24 22:58 Antibiotics) Exam Data for Last 24 hours Vital signs and Labs for Last 24 Hours: Temp Pulse Resp BP Pulse Ox O2 Del Method 98.4 F 88 20 154/94 H 91 L Room Air 12/23/24 02:07 12/23/24 02:07 12/23/24 02:07 12/23/24 02:07 12/23/24 01:00 12/23/24 02:07 Laboratory Results - last 24 hr 12/22/24 23:10: SARS-CoV-2 (PCR) Not detected, Influenza A Untype (PCR) Not detected, Influenza Type B (PCR) Not detected 12/22/24 23:19: VBG pH 7.38, VBG pCO2 43.8, VBG pO2 48.7 H, VBG HCO3 25.0, VBG Total CO2 26.4, VBG O2 Saturation 83.2 H, VBG Base Excess -0.2, VBG Lactic Acid 1.9 12/22/24 23:40: WBC 10.1, RBC 4.78, Hgb 14.2, Hct 42.2, MCV 88.3, MCH 29.7, MCHC 33.6, RDW 12.9, Plt Count 205, MPV 9.5, Neut % (Auto) 69.0, Lymph % (Auto) 18.2, [place] % (Auto) 9.2, Eos % (Auto) 2.2, Baso % (Auto) 0.5, Neut # (Auto) 6.9, Lymph # (Auto) 1.8, [place] # (Auto) 0.9, Eos # (Auto) 0.2, Baso # (Auto) 0.1, PT 14.6 H, INR 1.34 H, Sodium 136, Potassium 4.2, Chloride 101, Carbon Dioxide 30, Anion Gap 9.2, BUN 23 H, Creatinine 0.90, Estimated Creat Clear 78, Estimated GFR 83, Est GFR ( Amer) 101, Glucose 165 H, Calcium 9.5, Magnesium 1.8, Total Bilirubin 0.6, AST 35, ALT 31, Alkaline Phosphatase 170 H, Troponin I < 0.01, NT-Pro-B Natriuret Pep 54.5, Total Protein 7.3, Albumin 4.4, Globulin 2.9, Albumin/Globulin Ratio 1.5 I & O for Last 24 hours: Intake & Output 12/20/24 12/21/24 12/22/24 12/23/24 23:59 23:59 23:59 23:59 Weight 81.647 kg Constitutional Constitutional: no acute distress *Routine HEENT Exam Head: Present normocephalic Eye: Present EOMI and PERRL ENT: Present mucous membranes moist *Routine Neck Exam Neck: Present supple; Absent lymphadenopathy *Routine Respiratory Exam Respiratory: Present CTA bilaterally and diminished air movement *Routine Cardiovascular Exam Cardiovascular: Present RRR *Routine Abdominal Exam Abdominal: Present soft and normoactive bowel sounds; Absent tenderness *Routine Rectal Exam Rectal:: deferred *Routine Genitalia Exam Genitalia:: deferred *Routine Extremities Exam Extremities: Absent cyanosis, clubbing or edema *Routine Skin Exam Skin: Present warm; Absent rash *Routine Neurological Exam Neurological: Present alert and oriented X3 Assessment and Plan *Assessment and plan (1) Pneumonia: Status: Acute Category: Medical Code(s): J18.9 - Pneumonia, unspecified organism (2) Respiratory failure: Status: Acute Qualifiers: Chronicity: acute Respiratory failure complication: hypoxia Qualified Code(s): J96.01 - Acute respiratory failure with hypoxia Category: Medical Code(s): J96.90 - Respiratory failure, unspecified, unspecified whether with hypoxia or hypercapnia (3) Chronic rhinitis: Status: Acute Category: Medical Code(s): J31.0 - Chronic rhinitis (4) COPD mixed type: Status: Chronic Category: Medical Code(s): J44.9 - Chronic obstructive pulmonary disease, unspecified (5) Dyspnea on exertion: Status: Chronic Category: Medical Code(s): R06.09 - Other forms of dyspnea (6) History of 2019 novel coronavirus disease (COVID-19): Status: Chronic Category: Medical Code(s): Z86.16 - Personal history of COVID-19 (7) ILD (interstitial lung disease): Status: Chronic Category: Medical Code(s): J84.9 - Interstitial pulmonary disease, unspecified (8) Multiple pulmonary nodules: Status: Chronic Category: Medical Code(s): R91.8 - Other nonspecific abnormal finding of lung field Plan * Acute Hypoxic Respiratory Failure secondary to Pneumonia and Interstitial Lung Disease (ILD) * Worsening SOB, hypoxia (O2 sat 60s-88% at home, 80-90% in ED), HR >100 bpm, perihilar infiltration on CT with chronic lung changes; history of ILD and recent COVID-19. * Ambulation desaturation to 80%; VBG pO2 48.7 mmHg, sat 83.2%; no acidosis (pH 7.38). * Supplemental O2 via nasal cannula, titrate 2-6 L/min to SpO2 >92%; continuous pulse oximetry. * Continue IV Rocephin 1 g every 24, p.o. azithromycin 250 daily * Sputum culture, blood cultures x 2; repeat CXR in 24-48h to monitor infiltration. * Pulmonology consult for ILD management. * Monitor respiratory rate, work of breathing q4h; escalate to BiPAP if SpO2 <90% on 6 L/min. * Possible Infectious Process (Pneumonia) * Temp 100?F Wednesday, on Augmentin since , CT with perihilar infiltration; no leukocytosis (WBC 10.1 K/?L), afebrile now. * Antibiotics as above; trend temp, WBC q24h x 2 days. * Chronic Interstitial Lung Disease, Exacerbation * Known ILD, hypoxia worse than baseline, CT with chronic changes; BNP 54.5 pg/mL rules out CHF contribution. * Pulmonology to guide long-term ILD therapy (e.g., antifibrotics if indicated). * Atrial Fibrillation, Currently in Sinus Rhythm with Left Bundle Branch Block (LBBB) History of AFib, in sinus rhythm with LBBB on EKG, HR >100 bpm at home, no ischemic changes; BNP 54.5 pg/mL and troponin negative suggest no acute cardiac decompensation. * Type 2 Diabetes Mellitus * Glucose 165 mg/dL * Sliding scale insulin, goal 140-180 mg/dL; * A1c pending; diabetic diet. * Disposition: * 69-year-old male with ILD, past history COVID with complications, admitted for hypoxia, pneumonia; high risk for respiratory decline. * Lovenox subcu DVT prophylaxis; pantoprazole 40 mg PO daily. * Daily CBC, BMP; repeat VBG if respiratory status worsens. * PT/OT for mobility; hospitalist follow-up. * Admit to telemetry for hypoxia management, antibiotics, and ILD treatment
--- NOTE | 2024-12-23 02:30 | PC.NURSE ---
Pt desating in low 80s with movement, 2L applied at this time, Camila Aragon APRN aware.
[2024-12-23] MEDS: MAGNESIUM SULFATE IN WATER 2 GM/50 ML PIGGYBACK IV (03:31)
[2024-12-23 03:45] LABS: Troponin I < 0.01 ng/ml (0.00-0.034)
[2024-12-23] MEDS: OXYMETAZOLINE NASAL SPRAY 0.05% 15ML NS (04:06)
--- NOTE | 2024-12-23 04:57 | PC.NURSE ---
Pt is alert and oriented x4 and currently tolerating 2L well @ 93%. Pt lungs remain diminished throughout. Pt admits to his nose being stopped up, Camila Aragon APRN made aware, new orders for nasal spray, pt was treated per order. Pt Mag was 1.8 upon and admission and x1 dose of mag was given per protocol. Pt telemetry shows a BBB. Pt denies pain and needs and is extremely pleasant.
--- NOTE | 2024-12-23 05:07 | ECG_ITS ---
APPROVED REPORT Exam: Resting ECG HR:80 bpm ECG Measurements Heart Rate 80 AXES MI 196 P 33 QRSd 142 QRS 17 QT 428 T 41 QTc 464 Conclusion SINUS RHYTHM LEFT BUNDLE BRANCH BLOCK [120+ ms QRS DURATION, 80+ ms Q/S IN V1/V2, 85+ ms R IN I/aVL/V5/V6] ABNORMAL ECG UNCONFIRMED REPORT Electronically signed by : Trace Nation MD 12/24/2024 15:42:44
[2024-12-23 07:11] LABS: Adenovirus,PCR Not Detected (NotDetected); Bordetella Pertussis Not Detected (NotDetected); Chlamydophila Pneumoniae, PCR Not Detected (NotDetected); Coronavirus 19, PCR Not Detected (NotDetected); Coronavirus 229E Not Detected (NotDetected); Coronavirus NL63 Not Detected (NotDetected); Coronavirus OC43 Not Detected (NotDetected); Coronovirus HKU1,PCR Not Detected (NotDetected); Human Metapneumovirus Not Detected (NotDetected); Influenza A, PCR Not Detected (NotDetected); Influenza AH1, 2009 Not Detected (NotDetected); Influenza AH1, PCR Not Detected (NotDetected); Influenza AH3,PCR Not Detected (NotDetected); Influenza B, PCR Not Detected (NotDetected); Mycoplasma Pneumoniae, PCR Not Detected (NotDetected); Parainfluenza 1, PCR Not Detected (NotDetected); Parainfluenza 2, PCR Not Detected (NotDetected); Parainfluenza 3, PCR Not Detected (NotDetected); Parainfluenza 4, PCR Not Detected (NotDetected); Respiratory Syncytial Virus Not Detected (NotDetected); Rhinovirus/Enterovirus Not Detected (NotDetected)
[2024-12-23 08:05] LABS: Basophils % 0.5 % (0.1-2.0); Eosinophils # 0.3 K/mm3 (0.0-0.4); Hematocrit 41.3 % (42.0-52.0); Lymphocytes % 23.4 % (10-50); Mean Corpuscular HGB Conc 33.9 g/dL (31.8-35.4); Mean Corpuscular Hemoglobin 29.9 pg (27.0-31.2); Mean Corpuscular Volume 88.1 fl (80-94); Mean Platelet Volume 9.5 fl (7.4-10.4); Monocytes # 0.7 K/mm3 (0.1-1.0); Monocytes % 7.8 % (1.7-9.3); Neutrophils # 5.4 K/mm3 (1.8-7.8); Neutrophils % 64.5 % (37.0-80.0); Platelet Count 201 K/mm3 (142-424); Red Blood Count 4.69 M/mm3 (4.60-6.20); Red Cell Distribution Width 12.9 % (11.5-17.5); White Blood Count 8.4 K/mm3 (4.8-10.8)
[2024-12-23 08:18] LABS: Blood Urea Nitrogen 18 mg/dl (9-20); Calcium 8.5 mg/dl (8.4-10.2); Carbon Dioxide 27 mmol/L (22.0-30.0); Chloride 104 mmol/L (98-107); Chol/HDL Ratio 2.3 (1-3.5); Cholesterol 100 mg/dl (140-200); Creatinine Clearance Estimated 87 mL/min (50-200); Estimated Glomerular Filt Rate 95 ml/min (>60); GFR (African American) 115 ML/MIN (>60); Glucose 157 mg/dl (74-100); HDL Cholesterol 44 mg/dl (40-60); Magnesium 2.1 mg/dl (1.6-2.3); Phosphorous 2.8 mg/dl (2.5-4.5); Sodium 137 mmol/L (136-145); Triglycerides 89 mg/dl (30-150); VLDL Cholesterol 18 mg/dL (0-40)
[2024-12-23 08:28] LABS: Direct LDL Cholesterol 36.58 mg/dL (100-129)
--- NOTE | 2024-12-23 09:24 | PC.NURSE ---
Sputum Specimen collected and sent to lab.
[2024-12-23] MEDS: SALMETEROL IH ×2 (09:36→18:51)
[2024-12-23] MEDS: FLUTICASONE IH ×2 (09:36→18:51)
[2024-12-23] MEDS: ASPIRIN EC 81MG TABLET 81 MG PO (09:57)
[2024-12-23] MEDS: ENOXAPARIN 40MG/0.4ML SYRINGE 40 MG SUBCUT (09:57)
[2024-12-23] MEDS: AZITHROMYCIN 250MG TABLET 250 MG PO (09:58)
[2024-12-23] MEDS: VALSARTAN 160 MG 160 EACH PO (09:58)
[2024-12-23] MEDS: LEVOTHYROXINE 112 MCG PO (09:58)
[2024-12-23] MEDS: PAT OWN MED ***TAMSULOSIN 0.4MG 0.4 MG PO (09:59)
[2024-12-23] MEDS: AZELASTINE NASAL SPRAY 30ML BOTTLE 137 MCG NS ×2 (10:14→20:27)
[2024-12-23 10:38] LABS: POC Glucose,Bedside 139 (70-110)
[2024-12-23] MEDS: ACETAMINOPHEN 325MG TAB 650 MG PO (15:17)
[2024-12-23] MEDS: GUAIFENESIN/DEXTROMETHORPHAN 200MG/20MG 10ML UDC 10 ML PO (15:59)
--- NOTE | 2024-12-23 18:23 | PC.NURSE ---
patient is a/ox4 and currently on 1.5 LNC satting above 95%. pt c/o a headache earlier in shift, treated per DEC. patient has had a non productive cough, MD notified and new orders received. tolerating diet well. pt ambulates to the bathroom independently and uses call light and pull alarm when needed. no complaints voiced at this time.
[2024-12-23] MEDS: IPRATROPIUM/ALBUTEROL 3 ML NEB IH ×2 (18:39→23:03)
[2024-12-23] MEDS: PAT OWN MED ***GABAPENTIN 300MG 600 MG PO (20:22)
[2024-12-23] MEDS: TRAZODONE 50 MG PO (20:22)
[2024-12-23] MEDS: FAMOTIDINE 20 MG PO (20:22)
[2024-12-23] MEDS: FEXOFENADINE 180 MG 180 EACH PO (20:23)
[2024-12-23] MEDS: FINASTERIDE 5 MG PO (20:23)
[2024-12-23] MEDS: PAT OWN MED ***MONTELUKAST SODIUM 10MG 10 MG PO (20:27)
[2024-12-23] MEDS: DILTIAZEM 240 MG PO (20:28)
--- NOTE | 2024-12-23 23:26 | ECG_ITS ---
APPROVED REPORT Exam: Resting ECG HR:95 bpm ECG Measurements Heart Rate 95 AXES PA 164 P 19 QRSd 140 QRS 13 QT 380 T 34 QTc 433 Conclusion SINUS RHYTHM LEFT BUNDLE BRANCH BLOCK [120+ ms QRS DURATION, 80+ ms Q/S IN V1/V2, 85+ ms R IN I/aVL/V5/V6] ABNORMAL ECG UNCONFIRMED REPORT Electronically signed by : JUANA JENKINS, 12/23/2024 05:43:32
[2024-12-24] VITALS (13 sets, daily range): BP systolic 133–153; BP diastolic 66–81; PULSE 84–106; RESP 18–20; TEMP 36.6–37.3; O2SAT 90–94; BMI 28.0
[2024-12-24] MEDS: GUAIFENESIN/DEXTROMETHORPHAN 200MG/20MG 10ML UDC 10 ML PO ×2 (04:15→12:36)
[2024-12-24] MEDS: LEVOTHYROXINE 112 MCG PO (06:20)
--- NOTE | 2024-12-24 06:24 | PC.NURSE ---
patient remains on 1.5L NC overnight.
[2024-12-24] MEDS: SALMETEROL IH ×2 (06:39→18:00)
[2024-12-24] MEDS: IPRATROPIUM/ALBUTEROL 3 ML NEB IH ×4 (06:39→23:37)
[2024-12-24] MEDS: FLUTICASONE IH ×2 (06:39→18:00)
[2024-12-24] MEDS: VALSARTAN 160 MG 160 EACH PO (08:37)
[2024-12-24] MEDS: AZITHROMYCIN 250MG TABLET 250 MG PO (08:37)
[2024-12-24] MEDS: SERTRALINE 50 MG PO (08:37)
[2024-12-24] MEDS: PAT OWN MED ***GABAPENTIN 300MG 300 MG PO (08:37)
[2024-12-24] MEDS: ASPIRIN EC 81MG TABLET 81 MG PO (08:37)
[2024-12-24] MEDS: ENOXAPARIN 40MG/0.4ML SYRINGE 40 MG SUBCUT (08:37)
[2024-12-24] MEDS: PAT OWN MED ***TAMSULOSIN 0.4MG 0.4 MG PO (08:37)
[2024-12-24] MEDS: CEFTRIAXONE 1 GM 1 GM in 0.9 % SODIUM CHLORIDE 50 ML IV (08:37)
[2024-12-24] MEDS: AZELASTINE NASAL SPRAY 30ML BOTTLE 137 MCG NS (08:38)
[2024-12-24 09:10] LABS: Basophils % 0.4 % (0.1-2.0); Eosinophils # 0.3 K/mm3 (0.0-0.4); Eosinophils % 2.5 % (0.1-12.0); Lymphocytes # 2.5 K/mm3 (0.7-4.5); Lymphocytes % 24.7 % (10-50); Mean Corpuscular HGB Conc 34.1 g/dL (31.8-35.4); Mean Corpuscular Hemoglobin 30.2 pg (27.0-31.2); Mean Corpuscular Volume 88.4 fl (80-94); Mean Platelet Volume 9.5 fl (7.4-10.4); Monocytes # 0.8 K/mm3 (0.1-1.0); Monocytes % 7.9 % (1.7-9.3); Neutrophils # 6.5 K/mm3 (1.8-7.8); Neutrophils % 63.8 % (37.0-80.0); Platelet Count 210 K/mm3 (142-424); Red Blood Count 4.64 M/mm3 (4.60-6.20); Red Cell Distribution Width 12.9 % (11.5-17.5); White Blood Count 10.2 K/mm3 (4.8-10.8)
[2024-12-24 09:38] LABS: Blood Urea Nitrogen 11 mg/dl (9-20); Calcium 8.9 mg/dl (8.4-10.2); Carbon Dioxide 27 mmol/L (22.0-30.0); Chloride 101 mmol/L (98-107); Creatinine Clearance Estimated 87 mL/min (50-200); Estimated Glomerular Filt Rate 111 ml/min (>60); GFR (African American) 135 ML/MIN (>60); Glucose 145 mg/dl (74-100); Sodium 134 mmol/L (136-145)
[2024-12-24 11:29] LABS: POC Glucose,Bedside 145 (70-110)
[2024-12-24 11:37] LABS: Hemoglobin A1C 6.8 % (4.0-6.0)
--- NOTE | 2024-12-24 14:10 | PC.NURSE ---
RA sat dropped to 80% while sleeping, placed patient on 1LNC
--- NOTE | 2024-12-24 14:22 | P.PN_ITS ---
Subjective *Date: 12/24/24 *Time: 16:30 Interval history: Patient stable liter oxygen. Desatted to the 60s when he walked to the bed shower without oxygen but recovered on 2 L back to the low 90s. Cough nonproductive. Afebrile. States he is feeling somewhat better. No nausea or vomiting. Tolerating p.o. intake. White count normal. Continuing IV antibiotics Medical Exam Vital signs and Labs for Last 24 Hours: Vital Signs Temp Pulse Pulse Resp BP Pulse Ox O2 Del Method 12/24/24 13:00 Room Air 12/24/24 12:00 90 12/24/24 11:40 98.2 F 99 H 18 133/69 92 L Room Air 12/24/24 11:09 88 12/24/24 11:09 92 H 12/24/24 11:09 94 L Nasal Cannula 12/24/24 11:00 Nasal Cannula 12/24/24 09:00 Nasal Cannula 12/24/24 08:00 100 H 12/24/24 08:00 Nasal Cannula 12/24/24 07:39 99.2 F 101 H 20 146/73 H 93 L Nasal Cannula 12/24/24 06:39 96 H 12/24/24 06:39 99 H 12/24/24 06:39 92 L Nasal Cannula 12/24/24 06:22 Nasal Cannula 12/24/24 05:00 Nasal Cannula 12/24/24 04:00 90 12/24/24 04:00 97.8 F 90 18 153/81 H 90 L Nasal Cannula 12/24/24 03:00 Nasal Cannula 12/24/24 01:00 Nasal Cannula 12/24/24 00:00 90 12/24/24 00:00 97.9 F 90 18 143/74 H 90 L Nasal Cannula 12/23/24 23:12 95 H 12/23/24 23:00 Nasal Cannula 12/23/24 21:00 Nasal Cannula 12/23/24 20:00 Nasal Cannula 12/23/24 20:00 100 H 12/23/24 20:00 98.2 F 97 H 150/77 H 96 Nasal Cannula 12/23/24 19:04 Nasal Cannula 12/23/24 19:03 98 H 12/23/24 18:38 Nasal Cannula 12/23/24 17:00 Nasal Cannula 12/23/24 16:00 100 H 12/23/24 16:00 98.3 F 95 H 18 155/86 H 93 L Nasal Cannula 12/23/24 15:00 Nasal Cannula O2 Flow Rate FiO2 12/24/24 13:00 12/24/24 12:00 12/24/24 11:40 12/24/24 11:09 12/24/24 11:09 12/24/24 11:09 1 12/24/24 11:00 1.5 12/24/24 09:00 1.5 12/24/24 08:00 12/24/24 08:00 1.5 12/24/24 07:39 1 12/24/24 06:39 12/24/24 06:39 12/24/24 06:39 1 12/24/24 06:22 1.5 12/24/24 05:00 1.5 12/24/24 04:00 12/24/24 04:00 1.5 12/24/24 03:00 1.5 12/24/24 01:00 1.5 12/24/24 00:00 12/24/24 00:00 1 12/23/24 23:12 12/23/24 23:00 1.5 12/23/24 21:00 1.5 12/23/24 20:00 1.5 12/23/24 20:00 12/23/24 20:00 1 12/23/24 19:04 2 28 12/23/24 19:03 12/23/24 18:38 1.5 12/23/24 17:00 1 12/23/24 16:00 12/23/24 16:00 1 12/23/24 15:00 1 Intake and Output 12/23/24 12/24/24 12/24/24 23:59 08:59 15:59 Intake Total 270 / 870 310 / 790 480 / 790 Output Total 0 / 200 0 / 0 0 / 0 Balance 270 / 670 310 / 790 480 / 790 Intake: Intake, Oral Amount 270 / 870 310 / 790 480 / 790 Output: Output, Urine Amount 0 / 200 0 / 0 0 / 0 Other: Number of Unmeasured Voids 1 1 1 Number of Bowel Movements 1 Weight 90.747 kg Patient Weight 12/25/24 00:59 Weight 90.747 kg Laboratory Results - last 24 hr 12/24/24 06:38: Hemoglobin A1c 6.8 H 12/24/24 06:56: WBC 10.2, RBC 4.64, Hgb 14.0 L, Hct 41.0 L, MCV 88.4, MCH 30.2, MCHC 34.1, RDW 12.9, Plt Count 210, MPV 9.5, Neut % (Auto) 63.8, Lymph % (Auto) 24.7, [place] % (Auto) 7.9, Eos % (Auto) 2.5, Baso % (Auto) 0.4, Neut # (Auto) 6.5, Lymph # (Auto) 2.5, [place] # (Auto) 0.8, Eos # (Auto) 0.3, Baso # (Auto) 0.0, Sodium 134 L, Potassium 4.0, Chloride 101, Carbon Dioxide 27, Anion Gap 10.0, BUN 11 D, Creatinine 0.70, Estimated Creat Clear 87, Estimated GFR 111, Est GFR ( Amer) 135, Glucose 145 H, Calcium 8.9 12/24/24 11:21: POC Glucose 145 H I & O for Labs for Last 24 Hours: Intake & Output 12/21/24 12/22/24 12/23/24 12/25/24 23:59 23:59 23:59 00:59 Intake Total 660 / 870 790 / 790 Output Total 200 / 200 0 / 0 Balance 460 / 670 790 / 790 Weight 81.647 kg 90.747 kg 90.747 kg Microbiology Reports for the Last 24 Hours: Microbiology 12/23/24 09:15 Sputum - Expectorated Sputum Gram Stain - Final 12/23/24 01:45 Blood Blood Culture - Preliminary NO GROWTH AFTER 24 HOURS 12/23/24 01:45 Blood Blood Culture - Preliminary NO GROWTH AFTER 24 HOURS Constitutional: Present no acute distress, average body habitus, chronically ill appearing and cooperative Head: Present atraumatic and normocephalic ENT: Present normal exam Respiratory: Present prolonged expiratory phase and normal respiratory effort; Absent rhonchi, wheezes or crackles Comment:: Improved exam Cardiac: Present Reg Rate and Rhythm GI: Present soft and normal bowel sounds; Absent distention or tenderness Extremities: Present normal inspection and full ROM Skin: Present intact; Absent erythema Neuro: Present Grossly Intact, alert, awake, oriented x 3 and moves all extremities Assessment and Plan *Assessment and plan (1) Pneumonia: Status: Acute Category: Medical Code(s): J18.9 - Pneumonia, unspecified organism (2) Respiratory failure: Status: Acute Qualifiers: Chronicity: acute Respiratory failure complication: hypoxia Qualified Code(s): J96.01 - Acute respiratory failure with hypoxia Category: Medical Code(s): J96.90 - Respiratory failure, unspecified, unspecified whether with hypoxia or hypercapnia (3) Chronic rhinitis: Status: Acute Category: Medical Code(s): J31.0 - Chronic rhinitis (4) COPD mixed type: Status: Chronic Category: Medical Code(s): J44.9 - Chronic obstructive pulmonary disease, unspecified (5) Dyspnea on exertion: Status: Chronic Category: Medical Code(s): R06.09 - Other forms of dyspnea (6) History of 2019 novel coronavirus disease (COVID-19): Status: Chronic Category: Medical Code(s): Z86.16 - Personal history of COVID-19 (7) ILD (interstitial lung disease): Status: Chronic Category: Medical Code(s): J84.9 - Interstitial pulmonary disease, unspecified (8) Multiple pulmonary nodules: Status: Chronic Category: Medical Code(s): R91.8 - Other nonspecific abnormal finding of lung field Plan 69-year-old male who presents with acute hypoxemic respiratory failure secondary to pneumonia. Complicated by interstitial lung disease. Responding to antibiotics. Oxygen weaning. Continues to require inpatient management. Pulmonology consulted to evaluate patient in the morning. Problems addressed as follows: Acute Hypoxic Respiratory Failure secondary to Pneumonia and Interstitial Lung Disease (ILD) -Supplemental oxygen with goal sat greater than 90%. Currently on 1 L. -White count improved to 10 today. Repeat CBC, CMP, magnesium ordered for the morning -Continuing broad-spectrum antibiotics with ceftriaxone 1 g daily and azithromycin 250 mg daily -Pulmonology consulted to evaluate in the morning - Continue DuoNebs every 6 hours, initiate budesonide twice daily - continue Advair 1 puff twice daily Chronic Interstitial Lung Disease, Exacerbation - Known ILD, hypoxia worse than baseline, CT with chronic changes; BNP 54.5 pg/mL rules out CHF contribution. - Pulmonology to guide long-term ILD therapy (e.g., antifibrotics if indicated). -Continue Singulair 10 mg daily Atrial Fibrillation, Currently in Sinus Rhythm with Left Bundle Branch Block (LBBB) - History of AFib, in sinus rhythm with LBBB on EKG, HR >100 bpm at home, no ischemic changes; BNP 54.5 pg/mL and troponin negative suggest no acute cardiac decompensation. -Continue diltiazem 240 mg nightly Hypothyroid: Continue levothyroxine 112 mcg daily BPH: Continue tamsulosin 0.4 mg daily Type 2 Diabetes Mellitus -A1c 6.8. Well-controlled. Continue sliding scale insulin and fingersticks ACHS. -Morning glucose 145 -Continue gabapentin per home regimen for neuropathy Full code Cardiac diet Lovenox 40 mg subcu daily
[2024-12-24 17:25] LABS: POC Glucose,Bedside 123 (70-110)
[2024-12-24 17:25] LABS: POC Glucose,Bedside 217 (70-110)
[2024-12-24] MEDS: ACETAMINOPHEN 325MG TAB 650 MG PO (18:35)
[2024-12-24] MEDS: BUDESONIDE 0.5MG/2ML NEB 0.5 MG IH (19:04)
[2024-12-24] MEDS: FEXOFENADINE 180 MG 180 EACH PO (21:32)
[2024-12-24] MEDS: DILTIAZEM 240 MG PO (21:33)
[2024-12-24] MEDS: TRAZODONE 50 MG PO (21:34)
[2024-12-24] MEDS: FINASTERIDE 5 MG PO (21:35)
[2024-12-24] MEDS: FAMOTIDINE 20 MG PO (21:35)
[2024-12-24] MEDS: PAT OWN MED ***MONTELUKAST SODIUM 10MG 10 MG PO (21:36)
[2024-12-24] MEDS: PAT OWN MED ***GABAPENTIN 300MG 600 MG PO (21:38)
[2024-12-24 23:26] LABS: POC Glucose,Bedside 202 (70-110)
[2024-12-25] VITALS (11 sets, daily range): BP systolic 120–144; BP diastolic 68–78; PULSE 80–111; RESP 17–20; TEMP 36.5–37.1; O2SAT 86–94; BMI 28.0
--- NOTE | 2024-12-25 05:08 | PC.NURSE ---
Pt rested well during shift. V/s, ox4, tolerating 1.5 with activity and rest. No acute events to report. Possible D/c today. Pt has at home meds in pt's bin in [place].
[2024-12-25] MEDS: BUDESONIDE 0.5MG/2ML NEB 0.5 MG IH ×2 (05:59→18:06)
[2024-12-25] MEDS: FLUTICASONE IH ×2 (05:59→18:07)
[2024-12-25] MEDS: IPRATROPIUM/ALBUTEROL 3 ML NEB IH ×4 (05:59→23:45)
[2024-12-25] MEDS: SALMETEROL IH ×2 (05:59→18:07)
[2024-12-25] MEDS: LEVOTHYROXINE 112 MCG PO (06:37)
[2024-12-25 06:42] LABS: POC Glucose,Bedside 197 (70-110)
[2024-12-25 07:18] LABS: Basophils # 0.1 K/mm3 (0-0.2); Basophils % 0.5 % (0.1-2.0); Eosinophils # 0.4 K/mm3 (0.0-0.4); Eosinophils % 3.2 % (0.1-12.0); Hematocrit 42.4 % (42.0-52.0); Hemoglobin 14.2 g/dL (14.1-18.0); Lymphocytes # 2.5 K/mm3 (0.7-4.5); Lymphocytes % 23.1 % (10-50); Mean Corpuscular HGB Conc 33.5 g/dL (31.8-35.4); Mean Corpuscular Hemoglobin 29.5 pg (27.0-31.2); Mean Platelet Volume 9.2 fl (7.4-10.4); Monocytes # 0.9 K/mm3 (0.1-1.0); Monocytes % 8.4 % (1.7-9.3); Neutrophils # 6.9 K/mm3 (1.8-7.8); Platelet Count 239 K/mm3 (142-424); Red Blood Count 4.82 M/mm3 (4.60-6.20); Red Cell Distribution Width 12.7 % (11.5-17.5); White Blood Count 10.8 K/mm3 (4.8-10.8)
[2024-12-25 07:23] LABS: Blood Urea Nitrogen 12 mg/dl (9-20); Calcium 9.3 mg/dl (8.4-10.2); Carbon Dioxide 31 mmol/L (22.0-30.0); Chloride 99 mmol/L (98-107); Creatinine Clearance Estimated 87 mL/min (50-200); Estimated Glomerular Filt Rate 83 ml/min (>60); GFR (African American) 101 ML/MIN (>60); Glucose 205 mg/dl (74-100)
[2024-12-25 07:39] LABS: Sodium 135 mmol/L (136-145)
[2024-12-25] MEDS: ASPIRIN EC 81MG TABLET 81 MG PO (08:47)
[2024-12-25] MEDS: CEFTRIAXONE 1 GM 1 GM in 0.9 % SODIUM CHLORIDE 50 ML IV (08:47)
[2024-12-25] MEDS: PAT OWN MED ***TAMSULOSIN 0.4MG 0.4 MG PO (08:47)
[2024-12-25] MEDS: VALSARTAN 160 MG 160 EACH PO (08:47)
[2024-12-25] MEDS: ENOXAPARIN 40MG/0.4ML SYRINGE 40 MG SUBCUT (08:47)
[2024-12-25] MEDS: PAT OWN MED ***GABAPENTIN 300MG 300 MG PO (08:47)
[2024-12-25] MEDS: AZITHROMYCIN 250MG TABLET 250 MG PO (08:47)
[2024-12-25] MEDS: SERTRALINE 50 MG PO (08:47)
--- NOTE | 2024-12-25 09:52 | EXP.PULM.CON ---
History of Present Illness History of present illness: Mr. 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 Medical History (Updated 12/25/24 @ 14:40 by Bianka Ugalde MD) Acute and chronic respiratory failure with hypoxia COPD mixed type Chronic dyspnea Multiple pulmonary nodules ILD (interstitial lung disease) Restrictive lung disease History of 2019 novel coronavirus disease (COVID-19) Dyspnea on exertion Exposure to COVID-19 virus Surgical History History of surgery on arm History of nasal surgery History of cholecystectomy History of non-cataract eye surgery History of lumbar surgery Family History Mother Lung disease Social History Smoking Status: Never smoker alcohol intake: never substance use type: denies use current occupational status: other Travel in the last 8 weeks: None household members: none housing: house Review of Systems Constitutional Constitutional: Reports anorexia, Reports body ache(s) and Reports fatigue Eyes Eyes: Denies eye discharge, Denies dry eyes, Denies irritation and Denies itchy eyes ENT Ears, Nose, Mouth, and Throat: Denies epistaxis, Denies facial pain, Denies lip swelling and Denies throat swelling *Cardiovascular Cardiovascular: Reports dyspnea and Reports dyspnea on exertion *Respiratory Respiratory: Reports change in phlegm color, Reports chest congestion, Reports cough, Reports dyspnea, Reports dyspnea on exertion, Reports excessive phlegm production, Denies hemoptysis, Denies pain on inspiration, Denies pain with cough and Denies wheezing *Gastrointestinal Gastrointestinal: Denies abdominal pain, Denies belching and Denies cramping *Musculoskeletal Musculoskeletal: Reports back pain, Reports myalgias and Reports other (No small joint swelling or Pain) Psychiatric Psychiatric: Denies homicidal ideation and Denies suicidal ideation Endocrine Endocrine: Reports fatigue and Denies heat intolerance Hematologic/Lymphatic Hematologic/Lymphatic: Denies easy bleeding and Denies lymphadenopathy Allergic/Immunologic Allergic/Immunologic: Denies itchy eyes, Denies lip swelling, Denies throat swelling and Denies wheezing Pulmonology Exam Inpatient Vital signs and Labs for Last 24 Hours: Temp Pulse Resp BP Pulse Ox O2 Del Method O2 Flow Rate 98.3 F 111 H 18 144/70 H 94 L Nasal Cannula 1 12/25/24 08:00 12/25/24 08:00 12/25/24 08:00 12/25/24 08:00 12/25/24 08:00 12/25/24 08:00 12/25/24 08:00 FiO2 28 12/23/24 19:04 Laboratory Results - last 24 hr 12/24/24 06:06: POC Glucose 217 H 12/24/24 06:38: Hemoglobin A1c 6.8 H 12/24/24 11:21: POC Glucose 145 H 12/24/24 17:16: POC Glucose 123 H 12/24/24 23:18: POC Glucose 202 H 12/25/24 06:19: POC Glucose 197 H 12/25/24 06:44: WBC 10.8, RBC 4.82, Hgb 14.2, Hct 42.4, MCV 88.0, MCH 29.5, MCHC 33.5, RDW 12.7, Plt Count 239, MPV 9.2, Neut % (Auto) 64.0, Lymph % (Auto) 23.1, [place] % (Auto) 8.4, Eos % (Auto) 3.2, Baso % (Auto) 0.5, Neut # (Auto) 6.9, Lymph # (Auto) 2.5, [place] # (Auto) 0.9, Eos # (Auto) 0.4, Baso # (Auto) 0.1, Sodium 135 L, Potassium 4.0, Chloride 99, Carbon Dioxide 31 H, Anion Gap 9.0, BUN 12, Creatinine 0.90 D, Estimated Creat Clear 87, Estimated GFR 83, Est GFR ( Amer) 101 D, Glucose 205 H D, Calcium 9.3 I & O for Labs for Last 24 Hours: Intake & Output 12/22/24 12/23/24 12/25/24 12/25/24 23:59 23:59 00:59 23:59 Intake Total 660 / 870 1510 / 1510 600 / 600 Output Total 200 / 200 0 / 0 0 / 0 Balance 460 / 670 1510 / 1510 600 / 600 Weight 180 lb 200 lb 1 oz 200 lb 1.006 oz 200 lb 1.006 oz Microbiology Reports for the Last 24 Hours: Microbiology 12/23/24 09:15 Sputum - Expectorated Sputum Gram Stain - Final 12/23/24 09:15 Sputum - Expectorated Sputum Sputum Culture - Preliminary 12/23/24 01:45 Blood Blood Culture - Preliminary NO GROWTH AFTER 48 HOURS 12/23/24 01:45 Blood Blood Culture - Preliminary NO GROWTH AFTER 48 HOURS Constitutional: Present moderate distress Head: Present normocephalic and atraumatic ENT: Present normal exam, normal oropharynx and mucous membranes moist Neck: Present normal inspection and full ROM Respiratory: Present respiratory distress, rhonchi, crackles and able to speak in complete sentences Cardiac: Present S1/S2, Tachycardia and radial pulses present GI: Present soft and distention; Absent tenderness or guarding Skin: Present intact; Absent cyanosis or jaundice Neuro: Present alert, awake and oriented x 3 Extremities: Present normal inspection; Absent clubbing or cyanosis Psychiatric: Present normal affect and cooperative Meds Home Medications and Allergies Home Medications ?Medication ?Instructions ?Recorded ?Confirmed ?Type naproxen 500 mg tablet 500 mg PO BID PRN Pain or 11/02/24 12/23/24 Rx inflammation #60 tabs famotidine 20 mg tablet 20 mg PO HS For GI protection #90 12/07/24 12/23/24 Rx tabs albuterol sulfate 90 mcg/actuation 1 inh inhalation QIDP PRN 12/23/24 12/23/24 History aerosol inhaler shortness of breath or wheezing amoxicillin 875 mg-potassium 1 tab PO BID 12/23/24 12/23/24 History clavulanate 125 mg tablet aspirin 81 mg tablet,delayed 81 mg PO DAILY 12/23/24 12/23/24 History release azelastine 137 mcg (0.1 %) nasal 1 spray intranasal BID 12/23/24 12/23/24 History spray cephalexin 250 mg tablet 250 mg PO HS 12/23/24 12/23/24 History codeine 10 mg-guaifenesin 100 mg/5 5 - 10 ml PO Q4-6H 12/23/24 12/23/24 History mL oral liquid diltiazem HCl 240 mg 240 mg PO HS 12/23/24 12/23/24 History capsule,extended release 24 hr fexofenadine 180 mg tablet 180 mg PO HS 12/23/24 12/23/24 History finasteride 5 mg tablet 5 mg PO HS 12/23/24 12/23/24 History fluticasone 500 mcg-salmeterol 50 1 ea inhalation BID 12/23/24 12/23/24 History mcg/dose blistr powdr for inhalation ([place] [employer]) gabapentin 300 mg capsule 300 mg PO DAILY 12/23/24 12/23/24 History gabapentin 300 mg capsule 600 mg PO HS 12/23/24 12/23/24 History levothyroxine 112 mcg tablet 112 mcg PO DAILY 12/23/24 12/23/24 History montelukast 10 mg tablet 10 mg PO HS 12/23/24 12/23/24 History rosuvastatin 10 mg tablet 10 mg PO HS 12/23/24 12/23/24 History sertraline 50 mg tablet 50 mg PO DAILY 12/23/24 12/23/24 History tamsulosin 0.4 mg capsule 0.4 mg PO DAILY 12/23/24 12/23/24 History trazodone 50 mg tablet 50 mg PO HS 12/23/24 12/23/24 History valsartan 160 mg tablet 160 mg PO DAILY 12/23/24 12/23/24 History New Prescriptions to Start Prescriptions: Allergies Allergy/AdvReac Type Severity Reaction Status Date / Time Sulfa (Sulfonamide Allergy Intermediate Rash Verified 12/22/24 22:58 Antibiotics) Results Laboratory Findings 12/25/24 06:44 12/25/24 06:44 PT/INR, D-dimer PT 14.6 seconds (10.1-12.5) H 12/22/24 23:40 INR 1.34 (0.9-1.1) H 12/22/24 23:40 Abnormal lab findings: Abnormal Labs 12/22/24 12/22/24 12/23/24 23:19 23:40 06:50 Hgb 14.0 L Hct 41.3 L PT 14.6 H INR 1.34 H VBG pO2 48.7 H VBG O2 Saturation 83.2 H Sodium Carbon Dioxide BUN 23 H Glucose 165 H 157 H POC Glucose Hemoglobin A1c Alkaline Phosphatase 170 H Cholesterol 100 L LDL Cholesterol Direct 36.58 L 12/23/24 12/24/24 12/24/24 10:21 06:06 06:38 Hgb Hct PT INR VBG pO2 VBG O2 Saturation Sodium Carbon Dioxide BUN Glucose POC Glucose 139 H 217 H Hemoglobin A1c 6.8 H Alkaline Phosphatase Cholesterol LDL Cholesterol Direct 12/24/24 12/24/24 12/24/24 06:56 11:21 17:16 Hgb 14.0 L Hct 41.0 L PT INR VBG pO2 VBG O2 Saturation Sodium 134 L Carbon Dioxide BUN Glucose 145 H POC Glucose 145 H 123 H Hemoglobin A1c Alkaline Phosphatase Cholesterol LDL Cholesterol Direct 12/24/24 12/25/24 12/25/24 23:18 06:19 06:44 Hgb Hct PT INR VBG pO2 VBG O2 Saturation Sodium 135 L Carbon Dioxide 31 H BUN Glucose 205 H D POC Glucose 202 H 197 H Hemoglobin A1c Alkaline Phosphatase Cholesterol LDL Cholesterol Direct Assessment and Plan *Assessment and plan (1) Pneumonia: Status: Acute Category: Medical Code(s): J18.9 - Pneumonia, unspecified organism (2) Acute and chronic respiratory failure with hypoxia: Status: Acute Category: Medical Code(s): J96.21 - Acute and chronic respiratory failure with hypoxia Plan Mr. 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 Diffuse groundglass opacities right greater than left with septal thickening. No evidence of pulmonary embolism. Denies any orthopnea or PND. Denies any lower extremity swelling. No significant evidence of leukocytosis. Comprehensive respiratory viral PCR panel negative. BNP within normal limits. CRP elevated at 77. Pro-Lei within normal limits. Currently receiving ceftriaxone and azithromycin. Echo from 2020 dilated LA with diastolic dysfunction. LVEF within normal limits at 55%. Plan: Continue oxygen supplementation to maintain O2 saturation goal of 90% and above Continue ceftriaxone erythromycin pending culture results Prednisone 40 mg daily Incentive spirometry and flutter valve Cardiology consultation
--- NOTE | 2024-12-25 09:59 | CA_ITS ---
APPROVED REPORT EXAM: Comprehensive 2D, Doppler, and color-flow Echocardiogram Photographer Still: Rosario Mclaughlin RVT Ht: 5 ft 10 in Wt: 200lbs BSA: 2.09 BP: 144/70 mmHg Indications: SOA,COPD,PNEUMONIA 2D Dimensions LA Volume 41.80 mL LA Volume Index 20.00 mL/m2 (M/F) 16-34 M-Mode Dimensions RVDd 2.65 cm (0.9-2.6) LA Diam 2.81 cm (1.9-4.0) LVDd 5.40 cm (3.5-5.7) LVDs 4.24 cm (3.5-5.7) IVSd 1.01 cm (0.6-1.1) PWd 0.71 cm (0.6-1.1) EF (Teich) 32.00% FS 21.50% EDV (Teich) 141.30 mL TAPSE 2.11 (<1.7) ESV (Teich) 80.40 mL Aortic Valve ERNA Index 1.21 cm2/m2 AoV Peak [place]. 113.0 (50-130 cm/s) AO Peak GR. 5.10 mmHg AO Mean GR. 2.80 (<5 mmHg) AO VTI 17.6 (18-25 cm) ERNA (VTI) 2.58 (2.5-4.5 cm2) Pulmonary Valve PV Peak Velocity 83.0 (50-150 cm/s) Left Ventricle The left ventricle is normal size. Left ventricular systolic function is severely reduced. There is increased LV wall thickness. There is near akinesis of the septal, anteroseptal, inferoseptal, and anterior LV hicks, as well as the LV apex. Grade 1 diastolic dysfunction is present. LVEF is 25%. Right Ventricle Right ventricle is mildly dilated. Right ventricle is mildly hypokinetic. Atria The left atrium size is normal. The right atrium size is normal. There is no Doppler evidence of interatrial shunt. Aortic Valve The aortic valve is mildly thickened. There is no aortic valvular stenosis. No aortic regurgitation is present. Mitral Valve The mitral valve is normal in structure. No evidence of mitral valve stenosis. Mild mitral regurgitation. Tricuspid Valve Tricuspid valve is grossly normal in structure and function. Trace tricuspid regurgitation. There is insufficient TR jet to estimate RVSP. Pulmonic Valve The pulmonary valve is normal in structure. Trace pulmonic regurgitation. Great Vessels The aortic root is normal in size. IVC is normal in size and collapses >50% with inspiration. Pericardium There is no pericardial effusion. Other Information Study Quality: Fair Conclusion Severe reduction in LV systolic function (LVEF 25%). Near akinesis of the septal, anteroseptal, inferoseptal, and anterior LV hicks, as well as the LV apex. Mild RV dilation with mild reduction in RV function. Mild MR. Electronically signed by : Megha Kapoor MD 12/25/2024 12:00:11
[2024-12-25 10:32] LABS: C-Reactive Protein 77.1 mg/L (0-4)
[2024-12-25 10:49] LABS: Procalcitonin 0.197 ng/mL (0.0-2.0)
[2024-12-25 12:08] LABS: POC Glucose,Bedside 159 (70-110)
--- NOTE | 2024-12-25 12:52 | PC.NURSE ---
TECH NOTE; NURSE NOTIFIED OF ROOM AIR SATURATION FOR 1200 VITAL SIGNS Gera MARCIAL, SRNA
--- NOTE | 2024-12-25 13:57 | P.CONCA_ITS ---
History of Present Illness History of Present Illness Consult date: 12/25/24 Requesting physician: Toan Arellano Consult reason: shortness of breath Chief complaint: sob History of present illness: This is a 69-year-old white male with past medical history of COPD, hyperlipidemia, hypertension, A-fib, COVID-19 complications and interstitial lung disease who was admitted to hospital for acute hypoxic respiratory failure secondary to pneumonia and interstitial lung disease. Echocardiogram was obtained today which shows an estimated ejection fraction of 25%, with near akinesis of the septal, anteroseptal, inferior septal and anterior LV hicks as well as the LV apex. Mild RV dilation with mild reduction in RV function was also noted. Serial troponins have been negative. proBNP on admission was 54.5. EKG on admission shows sinus rhythm at a rate of 80 with a left bundle branch block. Negative for acute STEMI. Chest CTA is negative for PE but did show right greater than left perihilar infiltration. Pulmonology is following. Cardiology was asked to consult for new onset heart failure. Patient reports he is overall feeling better but does still have shortness of breath. Patient denies chest pain. Of note patient's oxygen saturation drops to 60s with ambulation without oxygen but recovers with oxygen. [facility] Disclaimer: The information contained in this section may have been updated after the patient was seen, as this information can be updated by other users. Medical History COPD mixed type Chronic dyspnea Multiple pulmonary nodules ILD (interstitial lung disease) Restrictive lung disease History of 2019 novel coronavirus disease (COVID-19) Dyspnea on exertion Exposure to COVID-19 virus Surgical History History of surgery on arm History of nasal surgery History of cholecystectomy History of non-cataract eye surgery History of lumbar surgery Family History Mother Lung disease Social History Smoking Status: Never smoker alcohol intake: never substance use type: denies use current occupational status: other Travel in the last 8 weeks: None household members: none housing: house Review of Systems Review of Systems Review of systems:: pertinent systems reviewed and negative unless documented below *Cardiovascular Cardiovascular: Denies chest pain Comments: sob Exam Data for Last 24 hours Vital signs and Labs for Last 24 Hours: Temp Pulse Resp BP Pulse Ox O2 Del Method O2 Flow Rate 98.7 F 98 H 20 120/73 86 L Room Air 2 12/25/24 12:00 12/25/24 12:00 12/25/24 12:00 12/25/24 12:00 12/25/24 12:00 12/25/24 12:00 12/25/24 08:00 FiO2 28 12/23/24 19:04 Laboratory Results - last 24 hr 12/24/24 06:06: POC Glucose 217 H 12/24/24 17:16: POC Glucose 123 H 12/24/24 23:18: POC Glucose 202 H 12/25/24 06:19: POC Glucose 197 H 12/25/24 06:44: WBC 10.8, RBC 4.82, Hgb 14.2, Hct 42.4, MCV 88.0, MCH 29.5, MCHC 33.5, RDW 12.7, Plt Count 239, MPV 9.2, Neut % (Auto) 64.0, Lymph % (Auto) 23.1, [place] % (Auto) 8.4, Eos % (Auto) 3.2, Baso % (Auto) 0.5, Neut # (Auto) 6.9, Lymph # (Auto) 2.5, [place] # (Auto) 0.9, Eos # (Auto) 0.4, Baso # (Auto) 0.1, Sodium 135 L, Potassium 4.0, Chloride 99, Carbon Dioxide 31 H, Anion Gap 9.0, BUN 12, Creatinine 0.90 D, Estimated Creat Clear 87, Estimated GFR 83, Est GFR ( Amer) 101 D, Glucose 205 H D, Calcium 9.3, C-Reactive Protein 77.1 H, Procalcitonin 0.197 12/25/24 12:01: POC Glucose 159 H I & O for Last 24 hours: Intake & Output 12/22/24 12/23/24 12/25/24 12/25/24 23:59 23:59 00:59 23:59 Intake Total 660 / 870 1510 / 1510 600 / 600 Output Total 200 / 200 0 / 0 0 / 0 Balance 460 / 670 1510 / 1510 600 / 600 Weight 180 lb 200 lb 1 oz 200 lb 1.006 oz 200 lb 1.006 oz Microbiology Reports for the Last 24 Hours: Microbiology 12/23/24 09:15 Sputum - Expectorated Sputum Gram Stain - Final 12/23/24 09:15 Sputum - Expectorated Sputum Sputum Culture - Preliminary 12/23/24 01:45 Blood Blood Culture - Preliminary NO GROWTH AFTER 48 HOURS 12/23/24 01:45 Blood Blood Culture - Preliminary NO GROWTH AFTER 48 HOURS Constitutional Constitutional: no acute distress *Routine Respiratory Exam Respiratory: Present wheezes, crackles and symmetric chest movement *Routine Cardiovascular Exam Cardiovascular: Present RRR, Normal S1 and Normal S2 *Routine Abdominal Exam Abdominal: Present soft and normoactive bowel sounds; Absent tenderness *Routine Extremities Exam Extremities: Present full ROM and normal capillary refill; Absent edema *Routine Skin Exam Skin: Present intact, dry and warm Detailed Neck Exam: Thyroids Thyroid: Absent bruit Meds Home Medications and Allergies Home Medications ?Medication ?Instructions ?Recorded ?Confirmed ?Type naproxen 500 mg tablet 500 mg PO BID PRN Pain or 11/02/24 12/23/24 Rx inflammation #60 tabs famotidine 20 mg tablet 20 mg PO HS For GI protection #90 12/07/24 12/23/24 Rx tabs albuterol sulfate 90 mcg/actuation 1 inh inhalation QIDP PRN 12/23/24 12/23/24 History aerosol inhaler shortness of breath or wheezing amoxicillin 875 mg-potassium 1 tab PO BID 12/23/24 12/23/24 History clavulanate 125 mg tablet aspirin 81 mg tablet,delayed 81 mg PO DAILY 12/23/24 12/23/24 History release azelastine 137 mcg (0.1 %) nasal 1 spray intranasal BID 12/23/24 12/23/24 History spray cephalexin 250 mg tablet 250 mg PO HS 12/23/24 12/23/24 History codeine 10 mg-guaifenesin 100 mg/5 5 - 10 ml PO Q4-6H 12/23/24 12/23/24 History mL oral liquid diltiazem HCl 240 mg 240 mg PO HS 12/23/24 12/23/24 History capsule,extended release 24 hr fexofenadine 180 mg tablet 180 mg PO HS 12/23/24 12/23/24 History finasteride 5 mg tablet 5 mg PO HS 12/23/24 12/23/24 History fluticasone 500 mcg-salmeterol 50 1 ea inhalation BID 12/23/24 12/23/24 History mcg/dose blistr powdr for inhalation ([place] [employer]) gabapentin 300 mg capsule 300 mg PO DAILY 12/23/24 12/23/24 History gabapentin 300 mg capsule 600 mg PO HS 12/23/24 12/23/24 History levothyroxine 112 mcg tablet 112 mcg PO DAILY 12/23/24 12/23/24 History montelukast 10 mg tablet 10 mg PO HS 12/23/24 12/23/24 History rosuvastatin 10 mg tablet 10 mg PO HS 12/23/24 12/23/24 History sertraline 50 mg tablet 50 mg PO DAILY 12/23/24 12/23/24 History tamsulosin 0.4 mg capsule 0.4 mg PO DAILY 12/23/24 12/23/24 History trazodone 50 mg tablet 50 mg PO HS 12/23/24 12/23/24 History valsartan 160 mg tablet 160 mg PO DAILY 12/23/24 12/23/24 History New Prescriptions to Start Prescriptions: Allergies Allergy/AdvReac Type Severity Reaction Status Date / Time Sulfa (Sulfonamide Allergy Intermediate Rash Verified 12/22/24 22:58 Antibiotics) Assessment and Plan *Assessment and plan (1) Acute hypoxic respiratory failure: Status: Acute Category: Medical Code(s): J96.01 - Acute respiratory failure with hypoxia (2) HFrEF (heart failure with reduced ejection fraction): Status: Acute Category: Medical Code(s): I50.20 - Unspecified systolic (congestive) heart failure (3) Pneumonia: Status: Acute Category: Medical Code(s): J18.9 - Pneumonia, unspecified organism (4) ILD (interstitial lung disease): Status: Chronic Category: Medical Code(s): J84.9 - Interstitial pulmonary disease, unspecified (5) Afib: Status: Acute Category: Medical Code(s): I48.91 - Unspecified atrial fibrillation Plan Acute HFrEF Acute hypoxic respiratory failure Pneumonia History of interstitial lung disease Pulmonology is following Echo shows an estimated EF of 25%. Near akinesis of the septal, anterior septal, inferior septal and anterior LV hicks as well as the LV apex. Mild RV dilation with mild reduction in RV function. Mild MR No signs of decompensation at this time, BNP was 54 on admission, CTA chest negative for pleural effusion, cardiomegaly or pericardial effusions. Start Aldactone 25 mg p.o. daily Stop valsartan and start Entresto 24/26 mg p.o. daily Will add Jardiance and Farxiga later Will proceed with left heart catheterization to further evaluate for ischemic disease. Discussed risk versus benefits with patient he is agreeable to proceed. Left heart catheterization tomorrow, patient needs to be n.p.o. after midnight LifeVest prior to discharge Continue aspirin 81 mg p.o. daily and Crestor 10 mg p.o. daily History of A-fib Chadsvasc score 3 Currently normal sinus rhythm Stop diltiazem due to low EF Currently receiving Lovenox injections will need DOAC prior to discharge CV summary 12/25/2024: Estimated EF 25%. Start patient on Entresto, Toprol and Aldactone. Will proceed with left heart catheterization tomorrow to evaluate for ischemic disease. Patient needs to be n.p.o. after midnight. Will need LifeVest prior to discharge. Cardiac meds: Aspirin 81 mg p.o. daily Crestor 10 mg p.o. daily Entresto 24/26 mg p.o. twice daily Toprol 25mg po daily Aldactone 25 mg p.o. daily Lovenox
--- NOTE | 2024-12-25 15:24 | EXP.ACUTE.PN ---
Subjective *Date: 12/25/24 *Time: 16:54 Interval history: Patient stable on 2 L overnight. Still short of breath today. Denies any chest pain, nausea, vomiting. Alert and oriented x 3. Pulmonology evaluating today. Echo obtained this morning. Preliminarily shows reduced EF. Medical Exam Vital signs and Labs for Last 24 Hours: Vital Signs Temp Pulse Pulse Resp BP Pulse Ox O2 Del Method 12/25/24 15:00 Nasal Cannula 12/25/24 13:00 Nasal Cannula 12/25/24 12:00 110 H 12/25/24 12:00 98.7 F 98 H 20 120/73 86 L Room Air 12/25/24 11:34 102 H 12/25/24 11:34 94 H 12/25/24 11:34 86 L Room Air 12/25/24 11:00 Nasal Cannula 12/25/24 09:00 Nasal Cannula 12/25/24 08:00 Nasal Cannula 12/25/24 08:00 110 H 12/25/24 08:00 98.3 F 111 H 18 144/70 H 94 L Nasal Cannula 12/25/24 06:07 Nasal Cannula 12/25/24 06:00 93 H 12/25/24 06:00 95 H 12/25/24 06:00 92 L Nasal Cannula 12/25/24 04:58 Nasal Cannula 12/25/24 04:00 97.7 F 89 17 135/68 90 L Nasal Cannula 12/25/24 04:00 80 12/25/24 02:15 Nasal Cannula 12/25/24 01:00 Nasal Cannula 12/25/24 00:15 88 12/25/24 00:00 82 12/25/24 00:00 97.8 F 86 17 127/70 90 L Nasal Cannula 12/25/24 00:00 90 12/24/24 22:41 Nasal Cannula 12/24/24 21:00 Nasal Cannula 12/24/24 20:00 100 H 12/24/24 20:00 Nasal Cannula 12/24/24 19:44 98.6 F 106 H 18 145/72 H 94 L Nasal Cannula 12/24/24 19:05 Nasal Cannula 12/24/24 19:04 89 12/24/24 19:04 84 12/24/24 18:43 Room Air 12/24/24 17:17 100 H 12/24/24 17:00 Nasal Cannula 12/24/24 16:00 99.1 F 95 H 18 133/66 91 L Nasal Cannula O2 Flow Rate 12/25/24 15:00 2 12/25/24 13:00 2 12/25/24 12:00 12/25/24 12:00 12/25/24 11:34 12/25/24 11:34 12/25/24 11:34 12/25/24 11:00 2 12/25/24 09:00 2 12/25/24 08:00 2 12/25/24 08:00 12/25/24 08:00 1 12/25/24 06:07 1.5 12/25/24 06:00 12/25/24 06:00 12/25/24 06:00 1.5 12/25/24 04:58 1.5 12/25/24 04:00 1.5 12/25/24 04:00 12/25/24 02:15 1.5 12/25/24 01:00 1.5 12/25/24 00:15 12/25/24 00:00 12/25/24 00:00 1.5 12/25/24 00:00 12/24/24 22:41 1.5 12/24/24 21:00 1.5 12/24/24 20:00 12/24/24 20:00 1.5 12/24/24 19:44 1.5 12/24/24 19:05 1 12/24/24 19:04 12/24/24 19:04 12/24/24 18:43 12/24/24 17:17 12/24/24 17:00 12/24/24 16:00 1 Intake and Output 12/24/24 12/25/24 12/25/24 23:59 07:59 15:59 Intake Total 720 / 1510 960 / 960 Output Total 0 / 0 Balance 720 / 1510 0 / 960 960 / 960 Intake: Intake, Oral Amount 720 / 1510 960 / 960 Output: Output, Urine Amount 0 / 0 Other: Number of Unmeasured Voids 1 1 Weight 90.747 kg 90.75 kg Patient Weight 12/25/24 23:59 Weight 90.75 kg Laboratory Results - last 24 hr 12/24/24 06:06: POC Glucose 217 H 12/24/24 17:16: POC Glucose 123 H 12/24/24 23:18: POC Glucose 202 H 12/25/24 06:19: POC Glucose 197 H 12/25/24 06:44: WBC 10.8, RBC 4.82, Hgb 14.2, Hct 42.4, MCV 88.0, MCH 29.5, MCHC 33.5, RDW 12.7, Plt Count 239, MPV 9.2, Neut % (Auto) 64.0, Lymph % (Auto) 23.1, [place] % (Auto) 8.4, Eos % (Auto) 3.2, Baso % (Auto) 0.5, Neut # (Auto) 6.9, Lymph # (Auto) 2.5, [place] # (Auto) 0.9, Eos # (Auto) 0.4, Baso # (Auto) 0.1, Sodium 135 L, Potassium 4.0, Chloride 99, Carbon Dioxide 31 H, Anion Gap 9.0, BUN 12, Creatinine 0.90 D, Estimated Creat Clear 87, Estimated GFR 83, Est GFR ( Amer) 101 D, Glucose 205 H D, Calcium 9.3, C-Reactive Protein 77.1 H, Procalcitonin 0.197 12/25/24 12:01: POC Glucose 159 H I & O for Labs for Last 24 Hours: Intake & Output 12/22/24 12/23/24 12/25/24 12/25/24 23:59 23:59 00:59 23:59 Intake Total 660 / 870 1510 / 1510 960 / 960 Output Total 200 / 200 0 / 0 0 / 0 Balance 460 / 670 1510 / 1510 960 / 960 Weight 81.647 kg 90.747 kg 90.747 kg 90.75 kg Microbiology Reports for the Last 24 Hours: Microbiology 12/23/24 09:15 Sputum - Expectorated Sputum Gram Stain - Final 12/23/24 09:15 Sputum - Expectorated Sputum Sputum Culture - Preliminary 12/23/24 01:45 Blood Blood Culture - Preliminary NO GROWTH AFTER 48 HOURS 12/23/24 01:45 Blood Blood Culture - Preliminary NO GROWTH AFTER 48 HOURS Constitutional: Present no acute distress, average body habitus, chronically ill appearing and cooperative Head: Present atraumatic and normocephalic ENT: Present normal exam Respiratory: Present prolonged expiratory phase and normal respiratory effort; Absent rhonchi, wheezes or crackles Comment:: Improved exam Cardiac: Present Reg Rate and Rhythm GI: Present soft and normal bowel sounds; Absent distention or tenderness Extremities: Present normal inspection and full ROM Skin: Present intact; Absent erythema Neuro: Present Grossly Intact, alert, awake, oriented x 3 and moves all extremities Assessment and Plan *Assessment and plan (1) HFrEF (heart failure with reduced ejection fraction): Status: Acute Category: Medical Code(s): I50.20 - Unspecified systolic (congestive) heart failure (2) Acute hypoxic respiratory failure: Status: Acute Category: Medical Code(s): J96.01 - Acute respiratory failure with hypoxia (3) Pneumonia: Status: Acute Category: Medical Code(s): J18.9 - Pneumonia, unspecified organism (4) Afib: Status: Acute Category: Medical Code(s): I48.91 - Unspecified atrial fibrillation (5) Respiratory failure: Status: Acute Qualifiers: Chronicity: acute Respiratory failure complication: hypoxia Qualified Code(s): J96.01 - Acute respiratory failure with hypoxia Category: Medical Code(s): J96.90 - Respiratory failure, unspecified, unspecified whether with hypoxia or hypercapnia (6) Chronic rhinitis: Status: Acute Category: Medical Code(s): J31.0 - Chronic rhinitis (7) COPD mixed type: Status: Chronic Category: Medical Code(s): J44.9 - Chronic obstructive pulmonary disease, unspecified (8) Dyspnea on exertion: Status: Chronic Category: Medical Code(s): R06.09 - Other forms of dyspnea (9) History of 2019 novel coronavirus disease (COVID-19): Status: Chronic Category: Medical Code(s): Z86.16 - Personal history of COVID-19 (10) ILD (interstitial lung disease): Status: Chronic Category: Medical Code(s): J84.9 - Interstitial pulmonary disease, unspecified (11) Multiple pulmonary nodules: Status: Chronic Category: Medical Code(s): R91.8 - Other nonspecific abnormal finding of lung field Plan 69-year-old male who presents with acute hypoxemic respiratory failure secondary to pneumonia. Complicated by interstitial lung disease. Responding to antibiotics. Oxygen weaned to 2 L. Was evaluated today with echo, new finding of heart failure with reduced ejection fraction. Cardiology consulted to assist with care. Pulmonology evaluating today as well. Continues to require inpatient management. Problems addressed as follows: Acute Hypoxic Respiratory Failure secondary to Pneumonia and Interstitial Lung Disease (ILD) -Supplemental oxygen with goal sat greater than 90%. Currently on 2 L. -White count normal at 10.8. Hemoglobin 14. Repeat CBC, CMP, magnesium ordered for the morning -Continuing broad-spectrum antibiotics with ceftriaxone 1 g daily and azithromycin 250 mg daily -Pulmonology consulted to evaluate in the morning, discussed case today, recommend echo. Echo found heart failure with reduced ejection fraction. Recommend cardiology consult. - Continue DuoNebs every 6 hours, initiate budesonide twice daily, continue Advair 1 puff twice daily New diagnosis of heart failure with reduced ejection fraction -Echo obtained this morning with the following findings: Severe reduction in LV systolic function (LVEF 25%). Near akinesis of the septal, anteroseptal, inferoseptal, and anterior LV hicks, as well as the LV apex. Mild RV dilation with mild reduction in RV function. Mild MR. -Cardiology consulted to assist with care. This is a new diagnosis for patient. - Will initiate Aldactone 25 mg daily. Cardiology consulted, recommend stopping valsartan and starting Entresto 24/26 mg twice daily. Consider adding SGLT2 later. -Cardiology recommends proceeding with left heart cath to further evaluate for ischemic disease. Will proceed with left heart cath tomorrow. LifeVest prior to discharge due to EF less than 35% -Stop diltiazem Chronic Interstitial Lung Disease, Exacerbation - Known ILD, hypoxia worse than baseline, CT with chronic changes; BNP 54.5 pg/mL rules out CHF contribution. - Pulmonology to guide long-term ILD therapy (e.g., antifibrotics if indicated). -Continue Singulair 10 mg daily Atrial Fibrillation, Currently in Sinus Rhythm with Left Bundle Branch Block (LBBB) - History of AFib, in sinus rhythm with LBBB on EKG, HR >100 bpm at home, no ischemic changes; BNP 54.5 pg/mL and troponin negative suggest no acute cardiac decompensation. -Given new diagnosis of heart failure, stop diltiazem; will reevaluate rate control pending response. Hypothyroid: Continue levothyroxine 112 mcg daily BPH: Continue tamsulosin 0.4 mg daily Type 2 Diabetes Mellitus -A1c 6.8. Well-controlled. Continue sliding scale insulin and fingersticks ACHS. -Morning glucose 205 -Continue gabapentin per home regimen for neuropathy Full code Cardiac diet Lovenox 40 mg subcu daily
[2024-12-25] MEDS: predniSONE 20MG TAB 40 MG PO (15:36)
[2024-12-25] MEDS: SPIRONOLACTONE 25MG TABLET 25 MG PO (15:36)
[2024-12-25] MEDS: ACETAMINOPHEN 325MG TAB 650 MG PO (16:45)
[2024-12-25] MEDS: TRAZODONE 50 MG PO (20:45)
[2024-12-25] MEDS: AZELASTINE NASAL SPRAY 30ML BOTTLE 137 MCG NS (20:45)
[2024-12-25] MEDS: PAT OWN MED ***GABAPENTIN 300MG 600 MG PO (20:45)
[2024-12-25] MEDS: SACUBITRIL/VALSARTAN 24-26MG TABLET 1 EACH PO (20:46)
[2024-12-25] MEDS: FAMOTIDINE 20 MG PO (20:46)
[2024-12-25] MEDS: FEXOFENADINE 180 MG 180 EACH PO (20:46)
[2024-12-25] MEDS: FINASTERIDE 5 MG PO (20:46)
[2024-12-25] MEDS: PAT OWN MED ***MONTELUKAST SODIUM 10MG 10 MG PO (20:47)
[2024-12-25 21:36] LABS: POC Glucose,Bedside 337 (70-110)
[2024-12-25] MEDS: humaLOG 100 UNITS/ML 10ML VIAL (SSI) SUBCUT (21:55)
[2024-12-26] VITALS (29 sets, daily range): BP systolic 106–152; BP diastolic 44–92; PULSE 84–111; RESP 16–20; TEMP 36.3–36.8; O2SAT 85–99; BMI 27.3
[2024-12-26] MEDS: humaLOG 100 UNITS/ML 10ML VIAL (SSI) SUBCUT ×3 (05:37→21:00)
[2024-12-26 05:49] LABS: POC Glucose,Bedside 275 (70-110)
[2024-12-26] MEDS: IPRATROPIUM/ALBUTEROL 3 ML NEB IH ×4 (06:09→23:26)
[2024-12-26] MEDS: BUDESONIDE 0.5MG/2ML NEB 0.5 MG IH ×2 (06:09→18:05)
[2024-12-26] MEDS: SALMETEROL IH ×2 (06:10→20:58)
[2024-12-26] MEDS: FLUTICASONE IH ×2 (06:10→20:58)
[2024-12-26 06:30] LABS: Basophils % 0.2 % (0.1-2.0); Eosinophils % 0.1 % (0.1-12.0); Hemoglobin 13.6 g/dL (14.1-18.0); Lymphocytes # 1.4 K/mm3 (0.7-4.5); Lymphocytes % 13.2 % (10-50); Mean Corpuscular Hemoglobin 29.6 pg (27.0-31.2); Mean Corpuscular Volume 87.1 fl (80-94); Mean Platelet Volume 9.3 fl (7.4-10.4); Monocytes # 0.6 K/mm3 (0.1-1.0); Monocytes % 5.9 % (1.7-9.3); Neutrophils # 8.3 K/mm3 (1.8-7.8); Neutrophils % 79.5 % (37.0-80.0); Platelet Count 267 K/mm3 (142-424); Red Blood Count 4.59 M/mm3 (4.60-6.20); Red Cell Distribution Width 12.7 % (11.5-17.5); White Blood Count 10.4 K/mm3 (4.8-10.8)
[2024-12-26] MEDS: LEVOTHYROXINE 112 MCG PO (06:31)
[2024-12-26 06:57] LABS: Anion Gap 10.4 mEq/L (5-15); Blood Urea Nitrogen 18 mg/dl (9-20); Calcium 8.9 mg/dl (8.4-10.2); Carbon Dioxide 26 mmol/L (22.0-30.0); Chloride 98 mmol/L (98-107); Creatinine Clearance Estimated 85 mL/min (50-200); Estimated Glomerular Filt Rate 95 ml/min (>60); GFR (African American) 115 ML/MIN (>60); Glucose 250 mg/dl (74-100); Potassium 4.4 mmoL/L (3.5-5.1); Sodium 130 mmol/L (136-145)
--- NOTE | 2024-12-26 07:13 | IR_ITS ---
APPROVED REPORT Patient Location: Inpatient PROCEDURES Right heart catheterization Left heart catheterization Left ventriculogram Selective coronary angiogram INDICATION New onset cardiomyopathy ejection fraction 25% Informed consent was obtained prior to the procedure. COMPLICATIONS NONE Estimated Blood Loss: LESS THAN 10 ML TECHNIQUE One percent lidocaine used to anesthetize the right anterior aspect of the wrist. The right radial artery was accessed via the Seldinger technique. A 6 [place] sheath was placed in the right radial artery. 2.5 mg of Verapamil, 800 mcg of nitroglycerin, 1mg Lidocaine and 5000 U Heparin were given through the arterial sheath. The papa catheter was also used to perform left heart catheterization, left ventriculogram and selective coronary angiogram. At the end of the procedure the sheath was removed good hemostasis was achieved using Traclet band, patient was transferred to the postop holding area in stable condition. One percent lidocaine was used to anesthetize the right anterior aspect of the neck. A electric track switch maintainer needle was used to identify the right internal jugular vein. Following this a larger cannulation needle was used to cannulate the right internal jugular vein and a wire was passed into the vein. Prior to the 7 [place] sheath being inserted the wire was confirmed under fluoroscopic guidance to be in the inferior vena cava. A 7 [place] sheath was introduced and a [place]-Venessa catheter was floated using hemodynamic waveforms in the pulmonary artery, right ventricle , and right atrium. Saturations were obtained in the pulmonary artery and the right atrium. At the end of the procedure the patient was transferred to the postop holding area in stable condition for sheath removal. ANGIOGRAPHIC RESULTS The left main artery Normal The left anterior descending artery Has proximal concentric 30% stenosis with mid vessel 20% stenoses The circumflex artery Mild 10% luminal irregularities The right coronary artery Dominant 10% luminal regularities The [place] ventriculogram reveals Globally reduced with ejection fraction of 25 to 30% The left ventricular end-diastolic pressure 10 mmHg Right atrial pressure 8 mmHg Pulmonary pressure 30/20 mmHg Pulmonary occlusion pressure 13 mmHg Right atrial saturation 74% Pulmonary artery saturation 74% Aortic saturation 96% Hemoglobin 13.6 Cardiac output 6.5 L/min IMPRESSION Nonischemic coronary disease as described above Reduced ejection fraction Euvolemic pressures PLAN 1. Continue medical management 2. Consider cardiac MRI Electronically signed by : Param Singh MD 12/26/2024 15:11:24
--- NOTE | 2024-12-26 08:28 | EXP.PHA.PN ---
Subjective *Date: 12/26/24 *Time: 08:28 Medical Exam Vital signs and Labs for Last 24 Hours: Vital Signs Temp Pulse Pulse Resp BP Pulse Ox O2 Del Method 12/26/24 07:25 97.6 F 94 H 18 134/69 97 Nasal Cannula 12/26/24 06:24 Nasal Cannula 12/26/24 06:10 92 H 12/26/24 06:10 94 H 12/26/24 06:10 96 Nasal Cannula 12/26/24 05:00 Nasal Cannula 12/26/24 04:00 95 H 12/26/24 04:00 97.5 F L 95 H 17 140/65 93 L Nasal Cannula 12/26/24 02:59 Nasal Cannula 12/26/24 01:00 Nasal Cannula 12/26/24 00:00 90 12/26/24 00:00 97.4 F L 93 H 17 111/77 93 L Room Air 12/25/24 23:46 91 H 12/25/24 23:46 92 H 12/25/24 23:00 Nasal Cannula 12/25/24 21:00 Nasal Cannula 12/25/24 20:00 95 H 12/25/24 20:00 Nasal Cannula 12/25/24 20:00 97.8 F 103 H 18 137/71 92 L Nasal Cannula 12/25/24 18:44 Room Air 12/25/24 18:09 95 H 12/25/24 18:09 92 H 12/25/24 18:09 92 L Nasal Cannula 12/25/24 17:00 Nasal Cannula 12/25/24 16:00 98.3 F 98 H 18 137/78 94 L Nasal Cannula 12/25/24 16:00 100 H 12/25/24 15:00 Nasal Cannula 12/25/24 13:00 Nasal Cannula 12/25/24 12:00 110 H 12/25/24 12:00 98.7 F 98 H 20 120/73 86 L Room Air 12/25/24 11:34 102 H 12/25/24 11:34 94 H 12/25/24 11:34 86 L Room Air 12/25/24 11:00 Nasal Cannula 12/25/24 09:00 Nasal Cannula O2 Flow Rate 12/26/24 07:25 2 12/26/24 06:24 2 12/26/24 06:10 12/26/24 06:10 12/26/24 06:10 2 12/26/24 05:00 2 12/26/24 04:00 12/26/24 04:00 2 12/26/24 02:59 2 12/26/24 01:00 2 12/26/24 00:00 12/26/24 00:00 12/25/24 23:46 12/25/24 23:46 12/25/24 23:00 2 12/25/24 21:00 2 12/25/24 20:00 12/25/24 20:00 2 12/25/24 20:00 2 12/25/24 18:44 12/25/24 18:09 12/25/24 18:09 12/25/24 18:09 2 12/25/24 17:00 2 12/25/24 16:00 2 12/25/24 16:00 12/25/24 15:00 2 12/25/24 13:00 2 12/25/24 12:00 12/25/24 12:00 12/25/24 11:34 12/25/24 11:34 12/25/24 11:34 12/25/24 11:00 2 12/25/24 09:00 2 Intake and Output 12/25/24 12/26/24 12/26/24 23:59 07:59 15:59 Intake Total 360 / 1800 480 / 480 0 / 480 Output Total 0 / 0 300 / 300 Balance 360 / 1800 180 / 180 0 / 180 Intake: Intake, Oral Amount 360 / 1800 480 / 480 0 / 480 Output: Output, Urine Amount 0 / 0 300 / 300 Other: Number of Unmeasured Voids 1 Weight 88.768 kg Patient Weight 12/26/24 23:59 Weight 88.768 kg Laboratory Results - last 24 hr 12/25/24 06:44: C-Reactive Protein 77.1 H, Procalcitonin 0.197 12/25/24 12:01: POC Glucose 159 H 12/25/24 20:58: POC Glucose 337 H* 12/26/24 05:33: POC Glucose 275 H 12/26/24 06:03: WBC 10.4, RBC 4.59 L, Hgb 13.6 L, Hct 40.0 L, MCV 87.1, MCH 29.6, MCHC 34.0, RDW 12.7, Plt Count 267, MPV 9.3, Neut % (Auto) 79.5, Lymph % (Auto) 13.2, [place] % (Auto) 5.9, Eos % (Auto) 0.1, Baso % (Auto) 0.2, Neut # (Auto) 8.3 H, Lymph # (Auto) 1.4, [place] # (Auto) 0.6, Eos # (Auto) 0.0, Baso # (Auto) 0.0, Sodium 130 L, Potassium 4.4, Chloride 98, Carbon Dioxide 26, Anion Gap 10.4, BUN 18 D, Creatinine 0.80, Estimated Creat Clear 85, Estimated GFR 95, Est GFR ( Amer) 115, Glucose 250 H D, Calcium 8.9 I & O for Labs for Last 24 Hours: Intake & Output 12/23/24 12/25/24 12/25/24 12/26/24 23:59 00:59 23:59 23:59 Intake Total 660 / 870 1510 / 1510 1320 / 1800 480 / 480 Output Total 200 / 200 0 / 0 0 / 0 300 / 300 Balance 460 / 670 1510 / 1510 1320 / 1800 180 / 180 Weight 90.747 kg 90.747 kg 90.75 kg 88.768 kg Microbiology Reports for the Last 24 Hours: Microbiology 12/23/24 09:15 Sputum - Expectorated Sputum Gram Stain - Final 12/23/24 09:15 Sputum - Expectorated Sputum Sputum Culture - Preliminary The patient's infection will respond to the chosen ABx?: Yes (PNEUMONIA, SPUTUM PENDING, BLOOD CX NO GROWTH AT 24 HR, AFEBRILE OVER 24 HR) Is the patient receiving the right drug, dose, and route?: Yes Could a more targeted ABx be ordered?: No How long ABx needed (days)?: 5
[2024-12-26] MEDS: SACUBITRIL/VALSARTAN 24-26MG TABLET 1 EACH PO ×2 (08:38→20:30)
[2024-12-26] MEDS: AZITHROMYCIN 250MG TABLET 250 MG PO (08:38)
[2024-12-26] MEDS: predniSONE 20MG TAB 40 MG PO (08:38)
[2024-12-26] MEDS: SPIRONOLACTONE 25MG TABLET 25 MG PO (08:38)
[2024-12-26] MEDS: CEFTRIAXONE 1 GM 1 GM in 0.9 % SODIUM CHLORIDE 50 ML IV (08:39)
[2024-12-26] MEDS: ASPIRIN EC 81MG TABLET 81 MG PO (08:39)
[2024-12-26] MEDS: SERTRALINE 50 MG PO (08:40)
[2024-12-26] MEDS: PAT OWN MED ***GABAPENTIN 300MG 300 MG PO (08:52)
--- NOTE | 2024-12-26 09:41 | EXP.PULM.PN ---
Subjective *Date: 12/26/24 *Time: 10:40 Interval history: No acute respiratory events overnight. Patient admits continued improvement in his respiratory symptoms. Pulmonology Exam Inpatient Vital signs and Labs for Last 24 Hours: Temp Pulse Resp BP Pulse Ox O2 Del Method O2 Flow Rate 97.6 F 90 18 134/69 97 Nasal Cannula 2 12/26/24 07:25 12/26/24 08:00 12/26/24 07:25 12/26/24 07:25 12/26/24 07:25 12/26/24 07:25 12/26/24 07:25 FiO2 28 12/23/24 19:04 Laboratory Results - last 24 hr 12/25/24 06:44: C-Reactive Protein 77.1 H, Procalcitonin 0.197 12/25/24 12:01: POC Glucose 159 H 12/25/24 20:58: POC Glucose 337 H* 12/26/24 05:33: POC Glucose 275 H 12/26/24 06:03: WBC 10.4, RBC 4.59 L, Hgb 13.6 L, Hct 40.0 L, MCV 87.1, MCH 29.6, MCHC 34.0, RDW 12.7, Plt Count 267, MPV 9.3, Neut % (Auto) 79.5, Lymph % (Auto) 13.2, [place] % (Auto) 5.9, Eos % (Auto) 0.1, Baso % (Auto) 0.2, Neut # (Auto) 8.3 H, Lymph # (Auto) 1.4, [place] # (Auto) 0.6, Eos # (Auto) 0.0, Baso # (Auto) 0.0, Sodium 130 L, Potassium 4.4, Chloride 98, Carbon Dioxide 26, Anion Gap 10.4, BUN 18 D, Creatinine 0.80, Estimated Creat Clear 85, Estimated GFR 95, Est GFR ( Amer) 115, Glucose 250 H D, Calcium 8.9 Temp Pulse Resp BP Pulse Ox O2 Del Method O2 Flow Rate 98.3 F 111 H 18 144/70 H 94 L Nasal Cannula 1 12/25/24 08:00 12/25/24 08:00 12/25/24 08:00 12/25/24 08:00 12/25/24 08:00 12/25/24 08:00 12/25/24 08:00 FiO2 28 12/23/24 19:04 Laboratory Results - last 24 hr 12/24/24 06:06: POC Glucose 217 H 12/24/24 06:38: Hemoglobin A1c 6.8 H 12/24/24 11:21: POC Glucose 145 H 12/24/24 17:16: POC Glucose 123 H 12/24/24 23:18: POC Glucose 202 H 12/25/24 06:19: POC Glucose 197 H 12/25/24 06:44: WBC 10.8, RBC 4.82, Hgb 14.2, Hct 42.4, MCV 88.0, MCH 29.5, MCHC 33.5, RDW 12.7, Plt Count 239, MPV 9.2, Neut % (Auto) 64.0, Lymph % (Auto) 23.1, [place] % (Auto) 8.4, Eos % (Auto) 3.2, Baso % (Auto) 0.5, Neut # (Auto) 6.9, Lymph # (Auto) 2.5, [place] # (Auto) 0.9, Eos # (Auto) 0.4, Baso # (Auto) 0.1, Sodium 135 L, Potassium 4.0, Chloride 99, Carbon Dioxide 31 H, Anion Gap 9.0, BUN 12, Creatinine 0.90 D, Estimated Creat Clear 87, Estimated GFR 83, Est GFR ( Amer) 101 D, Glucose 205 H D, Calcium 9.3 I & O for Labs for Last 24 Hours: Intake & Output 12/23/24 12/25/24 12/25/24 12/26/24 23:59 00:59 23:59 23:59 Intake Total 660 / 870 1510 / 1510 1320 / 1800 480 / 480 Output Total 200 / 200 0 / 0 0 / 0 300 / 300 Balance 460 / 670 1510 / 1510 1320 / 1800 180 / 180 Weight 200 lb 1 oz 200 lb 1.006 oz 200 lb 1.112 oz 195 lb 11.2 oz Intake & Output 12/22/24 12/23/24 12/25/24 12/25/24 23:59 23:59 00:59 23:59 Intake Total 660 / 870 1510 / 1510 600 / 600 Output Total 200 / 200 0 / 0 0 / 0 Balance 460 / 670 1510 / 1510 600 / 600 Weight 180 lb 200 lb 1 oz 200 lb 1.006 oz 200 lb 1.006 oz Microbiology Reports for the Last 24 Hours: Microbiology 12/23/24 09:15 Sputum - Expectorated Sputum Gram Stain - Final 12/23/24 09:15 Sputum - Expectorated Sputum Sputum Culture - Preliminary Microbiology 12/23/24 09:15 Sputum - Expectorated Sputum Gram Stain - Final 12/23/24 09:15 Sputum - Expectorated Sputum Sputum Culture - Preliminary 12/23/24 01:45 Blood Blood Culture - Preliminary NO GROWTH AFTER 48 HOURS 12/23/24 01:45 Blood Blood Culture - Preliminary NO GROWTH AFTER 48 HOURS Constitutional: Present moderate distress Head: Present normocephalic and atraumatic ENT: Present normal exam, normal oropharynx and mucous membranes moist Neck: Present normal inspection and full ROM Respiratory: Present respiratory distress, crackles and able to speak in complete sentences; Absent rhonchi or wheezes Cardiac: Present S1/S2, Tachycardia and radial pulses present GI: Present soft and distention; Absent tenderness or guarding Skin: Present intact; Absent cyanosis or jaundice Neuro: Present alert, awake and oriented x 3 Extremities: Present normal inspection; Absent clubbing or cyanosis Psychiatric: Present normal affect and cooperative Assessment and Plan *Assessment and plan (1) Pneumonia: Status: Acute Category: Medical Code(s): J18.9 - Pneumonia, unspecified organism (2) Acute and chronic respiratory failure with hypoxia: Status: Acute Category: Medical Code(s): J96.21 - Acute and chronic respiratory failure with hypoxia Plan Mr. 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 Diffuse groundglass opacities right greater than left with septal thickening. No evidence of pulmonary embolism. Denies any orthopnea or PND. Denies any lower extremity swelling. No significant evidence of leukocytosis. Comprehensive respiratory viral PCR panel negative. BNP within normal limits. CRP elevated at 77. Pro-Lei within normal limits. Currently receiving ceftriaxone and azithromycin. Echo from 2020 dilated LA with diastolic dysfunction. LVEF within normal limits at 55%. Interval update: Repeat echocardiogram EF 25%. CT concerning for volume overload with bilateral groundglass opacities and septal thickening. Cardiology following. Scheduled for left heart cath today. Improving oxygen requirements, weaned to room air this morning. Blood cultures no growth so far. Sputum cultures no organisms seen. Plan: Continue oxygen supplementation as needed to maintain O2 saturation goal of 90% and above 6-minute walk testing prior to discharge Continue ceftriaxone and azithromycin, antibiotics can be weaned to cefdinir to complete a total of 5-day course Prednisone 40 mg daily Incentive spirometry and flutter valve
--- NOTE | 2024-12-26 10:13 | EXP.CARD.PN ---
Subjective Subjective Date: 12/26/24 Time: 08:30 Principal diagnosis: Hypoxic respiratory failure Interval history: Patient reports soa improving. Denies chest pain. [facility] pending for today. Morning labs reviewed. Exam Data for Last 24 hours Vital signs and Labs for Last 24 Hours: Temp Pulse Resp BP Pulse Ox O2 Del Method O2 Flow Rate 97.6 F 90 18 134/69 97 Nasal Cannula 2 12/26/24 07:25 12/26/24 08:00 12/26/24 07:25 12/26/24 07:25 12/26/24 07:25 12/26/24 09:00 12/26/24 09:00 FiO2 28 12/23/24 19:04 Laboratory Results - last 24 hr 12/25/24 06:44: C-Reactive Protein 77.1 H, Procalcitonin 0.197 12/25/24 12:01: POC Glucose 159 H 12/25/24 20:58: POC Glucose 337 H* 12/26/24 05:33: POC Glucose 275 H 12/26/24 06:03: WBC 10.4, RBC 4.59 L, Hgb 13.6 L, Hct 40.0 L, MCV 87.1, MCH 29.6, MCHC 34.0, RDW 12.7, Plt Count 267, MPV 9.3, Neut % (Auto) 79.5, Lymph % (Auto) 13.2, [place] % (Auto) 5.9, Eos % (Auto) 0.1, Baso % (Auto) 0.2, Neut # (Auto) 8.3 H, Lymph # (Auto) 1.4, [place] # (Auto) 0.6, Eos # (Auto) 0.0, Baso # (Auto) 0.0, Sodium 130 L, Potassium 4.4, Chloride 98, Carbon Dioxide 26, Anion Gap 10.4, BUN 18 D, Creatinine 0.80, Estimated Creat Clear 85, Estimated GFR 95, Est GFR ( Amer) 115, Glucose 250 H D, Calcium 8.9 I & O for Last 24 hours: Intake & Output 12/23/24 12/25/24 12/25/24 12/26/24 23:59 00:59 23:59 23:59 Intake Total 660 / 870 1510 / 1510 1320 / 1800 580 / 580 Output Total 200 / 200 0 / 0 0 / 0 300 / 300 Balance 460 / 670 1510 / 1510 1320 / 1800 280 / 280 Weight 200 lb 1 oz 200 lb 1.006 oz 200 lb 1.112 oz 195 lb 11.2 oz Microbiology Reports for the Last 24 Hours: Microbiology 12/23/24 09:15 Sputum - Expectorated Sputum Gram Stain - Final 12/23/24 09:15 Sputum - Expectorated Sputum Sputum Culture - Preliminary Constitutional Constitutional: no acute distress *Routine Respiratory Exam Respiratory: Present wheezes and symmetric chest movement *Routine Cardiovascular Exam Cardiovascular: Present RRR, Normal S1 and Normal S2 *Routine Abdominal Exam Abdominal: Present soft and normoactive bowel sounds; Absent tenderness *Routine Extremities Exam Extremities: Present full ROM and normal capillary refill; Absent edema *Routine Skin Exam Skin: Present intact, dry and warm Detailed Neck Exam: Thyroids Thyroid: Absent bruit Progress Note: A&P Assessment and plan (1) Pneumonia: Status: Acute (2) Acute and chronic respiratory failure with hypoxia: Status: Acute Assessment and Plan Assessment and Plan for All Diagnoses:: Acute HFrEF Acute hypoxic respiratory failure Pneumonia History of interstitial lung disease Pulmonology is following Echo shows an estimated EF of 25%. Near akinesis of the septal, anterior septal, inferior septal and anterior LV hicks as well as the LV apex. Mild RV dilation with mild reduction in RV function. Mild MR No signs of decompensation at this time, BNP was 54 on admission, CTA chest negative for pleural effusion, cardiomegaly or pericardial effusions. Continue Aldactone 25 mg p.o. daily Continue Entresto 24/26 mg p.o. daily Add Jardiance 10mg p.o. daily Left and right heart cath: Nonischemic coronary disease noted with reduced ejection fraction and euvolemic pressures. Continue medical management consider outpatient MRI LifeVest order placed Continue aspirin 81 mg p.o. daily and lipitor 40 History of A-fib Chadsvasc score 3 Currently normal sinus rhythm Continue Toprol 25mg po daily Start Xarelto 20 mg p.o. daily CV summary 12/26/2024: CV stable, cardiology will sign off. Estimated EF 25%. Left heart cath shows nonischemic coronary artery disease. Right heart cath shows euvolemic pressures. Recommend continue medical management with below listed medications. LifeVest order has been placed and patient is awaiting fit. Please have patient follow-up in cardiology clinic in 1 week for reevaluation. Consider outpatient cardiac MRI to further evaluate for nonischemic cardiomyopathy. Cardiac meds: Aspirin 81 mg p.o. daily Lipitor 40 mg p.o. daily Entresto 24/26 mg p.o. twice daily Toprol 25mg po daily Aldactone 25 mg p.o. daily Xarelto 20mg p.o. daily Jardiance 10mg p.o.daily
[2024-12-26 10:57] LABS: POC Glucose,Bedside 181 (70-110)
[2024-12-26] MEDS: GUAIFENESIN/DEXTROMETHORPHAN 200MG/20MG 10ML UDC 10 ML PO ×2 (11:00→16:53)
[2024-12-26 11:16] LABS: C-Reactive Protein 72.8 mg/L (0-4)
[2024-12-26 12:50] LABS: Basophils % 0.2 % (0.1-2.0); Eosinophils # 0.1 K/mm3 (0.0-0.4); Eosinophils % 0.7 % (0.1-12.0); Hematocrit 42.1 % (42.0-52.0); Hemoglobin 14.5 g/dL (14.1-18.0); Lymphocytes # 0.8 K/mm3 (0.7-4.5); Lymphocytes % 6.7 % (10-50); Mean Corpuscular HGB Conc 34.4 g/dL (31.8-35.4); Mean Corpuscular Hemoglobin 30.3 pg (27.0-31.2); Mean Corpuscular Volume 88.1 fl (80-94); Mean Platelet Volume 9.1 fl (7.4-10.4); Monocytes # 0.5 K/mm3 (0.1-1.0); Monocytes % 3.7 % (1.7-9.3); Neutrophils # 10.8 K/mm3 (1.8-7.8); Neutrophils % 87.6 % (37.0-80.0); Platelet Count 260 K/mm3 (142-424); Red Blood Count 4.78 M/mm3 (4.60-6.20); Red Cell Distribution Width 12.7 % (11.5-17.5); White Blood Count 12.3 K/mm3 (4.8-10.8)
[2024-12-26 12:57] LABS: Chloride 99 mmol/L (98-107); Sodium 131 mmol/L (136-145)
[2024-12-26 12:58] LABS: Potassium 4.4 mmoL/L (3.5-5.1)
[2024-12-26 13:00] LABS: Blood Urea Nitrogen 20 mg/dl (9-20)
[2024-12-26 13:01] LABS: Anion Gap 9.4 mEq/L (5-15); Calcium 8.9 mg/dl (8.4-10.2); Carbon Dioxide 27 mmol/L (22.0-30.0); Creatinine Clearance Estimated 85 mL/min (50-200); Estimated Glomerular Filt Rate 95 ml/min (>60); GFR (African American) 115 ML/MIN (>60); Glucose 226 mg/dl (74-100)
[2024-12-26] MEDS: HEPARIN 1,000 UNITS/500ML NS (CATH LAB) 3000 UNIT IV (13:55)
[2024-12-26] MEDS: HEPARIN 1,000 UNITS/ML 10ML VIAL (CATH LAB) 10000 UNIT IV (13:56)
[2024-12-26] MEDS: VERAPAMIL 2.5MG/ML 2ML VIAL 2.5 MG IV (13:56)
[2024-12-26] MEDS: LIDOCAINE 1% 10ML MDV 20 ML IJ (13:56)
[2024-12-26] MEDS: 0.9 % SODIUM CHLORIDE 500 ML 25 ML IV (13:56)
[2024-12-26] MEDS: diphenhydrAMINE 50MG/ML VIAL 50 MG IV (13:57)
[2024-12-26] MEDS: NITROGLYCERIN 800MCG/8ML SYR (CATH LAB) 800 MCG IA (14:03)
[2024-12-26] MEDS: MIDAZOLAM HCL 1MG/ML 5ML VIAL 1 MG IV (14:16)
[2024-12-26] MEDS: FENTANYL 100MCG/2ML VIAL 50 MCG IV (14:16)
[2024-12-26 14:52] LABS: CATHL Arterial O2 SAT 74.1 % (90-100); CATHL Venous O2 SAT 74.4 % (75-80)
[2024-12-26] MEDS: IOPAMIDOL-370 (76%);100ML BOTTLE 50 ML IV (14:55)
[2024-12-26] MEDS: EMPAGLIFLOZIN 10MG TABLET 10 MG PO (16:02)
[2024-12-26 16:16] LABS: POC Glucose,Bedside 368 (70-110)
[2024-12-26] MEDS: RIVAROXABAN 10MG TABLET 20 MG PO (16:48)
--- NOTE | 2024-12-26 17:17 | PC.NURSE ---
Pt has done well this shift. VSS. Has c/o a cough this shift, medicated per mar. Lung sounds remain diminished with some fine crackles. Remains NSR to sinus tach on tele. No c/o N/V/D or shortness of breath this shift.
[2024-12-26] MEDS: BELLADONNA ALKALOIDS 60 ML ML PO (17:44)
--- NOTE | 2024-12-26 18:47 | EXP.PN ---
Subjective *Date: 12/26/24 *Time: 18:47 Interval history: Patient states he is breathing better today, but is having increased coughing. Will give one-time dose of Lasix. Continue antibiotics, anticipate discharge after LifeVest is placed tomorrow. Exam Data for Last 24 hours Vital signs and Labs for Last 24 Hours: Temp Pulse Resp BP Pulse Ox O2 Del Method O2 Flow Rate 97.9 F 90 18 131/70 91 L Nasal Cannula 2 12/26/24 16:50 12/26/24 18:09 12/26/24 17:20 12/26/24 17:20 12/26/24 17:20 12/26/24 18:10 12/26/24 18:10 FiO2 28 12/26/24 18:10 Laboratory Results - last 24 hr 12/25/24 20:58: POC Glucose 337 H* 12/26/24 05:33: POC Glucose 275 H 12/26/24 06:03: WBC 10.4, RBC 4.59 L, Hgb 13.6 L, Hct 40.0 L, MCV 87.1, MCH 29.6, MCHC 34.0, RDW 12.7, Plt Count 267, MPV 9.3, Neut % (Auto) 79.5, Lymph % (Auto) 13.2, [place] % (Auto) 5.9, Eos % (Auto) 0.1, Baso % (Auto) 0.2, Neut # (Auto) 8.3 H, Lymph # (Auto) 1.4, [place] # (Auto) 0.6, Eos # (Auto) 0.0, Baso # (Auto) 0.0, Sodium 130 L, Potassium 4.4, Chloride 98, Carbon Dioxide 26, Anion Gap 10.4, BUN 18 D, Creatinine 0.80, Estimated Creat Clear 85, Estimated GFR 95, Est GFR ( Amer) 115, Glucose 250 H D, Calcium 8.9, C-Reactive Protein 72.8 H 12/26/24 10:48: POC Glucose 181 H 12/26/24 12:35: WBC 12.3 H, RBC 4.78, Hgb 14.5, Hct 42.1, MCV 88.1, MCH 30.3, MCHC 34.4, RDW 12.7, Plt Count 260, MPV 9.1, Neut % (Auto) 87.6 H, Lymph % (Auto) 6.7 L, [place] % (Auto) 3.7, Eos % (Auto) 0.7, Baso % (Auto) 0.2, Neut # (Auto) 10.8 H, Lymph # (Auto) 0.8, [place] # (Auto) 0.5, Eos # (Auto) 0.1, Baso # (Auto) 0.0, Sodium 131 L, Potassium 4.4, Chloride 99, Carbon Dioxide 27, Anion Gap 9.4, BUN 20, Creatinine 0.80, Estimated Creat Clear 85, Estimated GFR 95, Est GFR ( Amer) 115, Glucose 226 H, Calcium 8.9 12/26/24 14:30: ABG O2 Sat (Measured) 74.1 L, POC VBG O2 Sat (Anders) 74.4 L 12/26/24 16:02: POC Glucose 368 H* I & O for Last 24 hours: Intake & Output 12/23/24 12/25/24 12/25/24 12/26/24 23:59 00:59 23:59 23:59 Intake Total 660 / 870 1510 / 1510 1320 / 1800 1262 / 1262 Output Total 200 / 200 0 / 0 0 / 0 300 / 300 Balance 460 / 670 1510 / 1510 1320 / 1800 962 / 962 Weight 90.747 kg 90.747 kg 90.75 kg 88.768 kg Microbiology Reports for the Last 24 Hours: Microbiology 12/23/24 09:15 Sputum - Expectorated Sputum Gram Stain - Final 12/23/24 09:15 Sputum - Expectorated Sputum Sputum Culture - Final Constitutional Constitutional: no acute distress *Routine HEENT Exam Head: Present normocephalic Eye: Present EOMI and PERRL ENT: Present mucous membranes moist *Routine Neck Exam Neck: Present supple; Absent lymphadenopathy *Routine Respiratory Exam Respiratory: Present CTA bilaterally *Routine Cardiovascular Exam Cardiovascular: Present RRR *Routine Abdominal Exam Abdominal: Present soft and normoactive bowel sounds; Absent tenderness *Routine Extremities Exam Extremities: Absent cyanosis, clubbing or edema *Routine Skin Exam Skin: Present warm; Absent rash *Routine Neurological Exam Neurological: Present alert and oriented X3 Assessment and Plan *Assessment and plan (1) HFrEF (heart failure with reduced ejection fraction): Status: Acute Category: Medical Code(s): I50.20 - Unspecified systolic (congestive) heart failure (2) Acute hypoxic respiratory failure: Status: Acute Category: Medical Code(s): J96.01 - Acute respiratory failure with hypoxia (3) Pneumonia: Status: Acute Category: Medical Code(s): J18.9 - Pneumonia, unspecified organism (4) Afib: Status: Acute Category: Medical Code(s): I48.91 - Unspecified atrial fibrillation (5) Respiratory failure: Status: Acute Qualifiers: Chronicity: acute Respiratory failure complication: hypoxia Qualified Code(s): J96.01 - Acute respiratory failure with hypoxia Category: Medical Code(s): J96.90 - Respiratory failure, unspecified, unspecified whether with hypoxia or hypercapnia (6) Chronic rhinitis: Status: Acute Category: Medical Code(s): J31.0 - Chronic rhinitis (7) COPD mixed type: Status: Chronic Category: Medical Code(s): J44.9 - Chronic obstructive pulmonary disease, unspecified (8) Dyspnea on exertion: Status: Chronic Category: Medical Code(s): R06.09 - Other forms of dyspnea (9) History of 2019 novel coronavirus disease (COVID-19): Status: Chronic Category: Medical Code(s): Z86.16 - Personal history of COVID-19 (10) ILD (interstitial lung disease): Status: Chronic Category: Medical Code(s): J84.9 - Interstitial pulmonary disease, unspecified (11) Multiple pulmonary nodules: Status: Chronic Category: Medical Code(s): R91.8 - Other nonspecific abnormal finding of lung field Plan Toan Bearden is a 69-year-old male who presents with acute hypoxemic respiratory failure secondary to pneumonia. Complicated by interstitial lung disease. Responding to antibiotics. Oxygen weaned to 2 L. Was evaluated today with echo, new finding of heart failure with reduced ejection fraction. Cardiology consulted to assist with care. Pulmonology evaluating today as well. Continues to require inpatient management. Problems addressed as follows: #Acute hypoxic respiratory failure #Community-acquired pneumonia #Interstitial lung disease exacerbation -Supplemental oxygen with goal sat greater than 90%. Currently on 2 L. -WBC bumped slightly to 12.3 today, likely from steroid use. No signs of worsening pneumonia, sepsis. -Continuing broad-spectrum antibiotics with ceftriaxone 1 g daily and azithromycin 250 mg daily -Pulmonology following, recommended 6-minute walk test prior to discharge and continuing antibiotics. Continue prednisone 40 mg daily. - Continue DuoNebs every 6 hours, budesonide twice daily, continue Advair 1 puff twice daily #HFrEF, new diagnosis ? ECHO revealed: Severe reduction in LV systolic function (LVEF 25%). Near akinesis of the septal, anteroseptal, inferoseptal, and anterior LV hicks, as well as the LV apex. Mild RV dilation with mild reduction in RV function. Mild MR. ? Cardiology consulted, s/p [facility] with nonocclusive coronary artery disease and euvolemic pressures. No stents. ? Continue Entresto, spironolactone 25 mg, metoprolol succinate 25 mg, Jardiance 10 mg. ? Pending LifeVest tomorrow. ? Patient having increased cough today, has bibasilar crackles. Will give one-time dose of IV Lasix 40 mg. Atrial Fibrillation ?Continue metoprolol, Xarelto. Currently rate controlled. Hypothyroid: Continue levothyroxine 112 mcg daily BPH: Continue tamsulosin 0.4 mg daily Type 2 Diabetes Mellitus -A1c 6.8. Well-controlled. Continue sliding scale insulin and fingersticks ACHS. -Continue gabapentin per home regimen for neuropathy Full code Cardiac diet Bekahrelto
[2024-12-26] MEDS: FUROSEMIDE 40MG/4ML VIAL 40 MG IV (20:17)
[2024-12-26] MEDS: FAMOTIDINE 20 MG PO (20:26)
[2024-12-26] MEDS: ATORVASTATIN 40MG TABLET 40 MG PO (20:26)
[2024-12-26] MEDS: FEXOFENADINE 180 MG 180 EACH PO (20:27)
[2024-12-26] MEDS: PAT OWN MED ***GABAPENTIN 300MG 600 MG PO (20:28)
[2024-12-26] MEDS: FINASTERIDE 5 MG PO (20:28)
[2024-12-26] MEDS: PAT OWN MED ***MONTELUKAST SODIUM 10MG 10 MG PO (20:32)
[2024-12-26] MEDS: TRAZODONE 50 MG PO (20:37)
[2024-12-26] MEDS: AZELASTINE NASAL SPRAY 30ML BOTTLE 137 MCG NS (21:03)
[2024-12-26 23:33] LABS: POC Glucose,Bedside 156 (70-110)
[2024-12-27] VITALS (8 sets, daily range): BP systolic 107–142; BP diastolic 67–82; PULSE 78–108; RESP 16–20; TEMP 36.6–36.7; O2SAT 90–98; BMI 27.0
--- NOTE | 2024-12-27 03:44 | PC.NURSE ---
Pt. is alert and orientated x4. Pt. is on oxygen 2.5 liters per NC. Pt was on 2 liters but after ambulating with the 2 liters O2 sats 88%. with oxygen at 2.5 liters O2 sats 92%. Pt. has done well this shift. No c/o's pain. No SOB, N/V/D. Pt. has a congested cough. Pt. getting Deu nebs q 6 hours. Pt. has slept off and on this shift. Right radial cath site, with dressing in place. dressing clean, dry, intact. Vss. Personal items and call rutledge in reach.
[2024-12-27] MEDS: GUAIFENESIN/DEXTROMETHORPHAN 200MG/20MG 10ML UDC 10 ML PO (05:46)
[2024-12-27 06:04] LABS: Basophils % 0.2 % (0.1-2.0); Eosinophils % 0.3 % (0.1-12.0); Hematocrit 42.4 % (42.0-52.0); Hemoglobin 14.4 g/dL (14.1-18.0); Lymphocytes # 2.2 K/mm3 (0.7-4.5); Mean Corpuscular Hemoglobin 29.9 pg (27.0-31.2); Mean Corpuscular Volume 88.1 fl (80-94); Mean Platelet Volume 9.2 fl (7.4-10.4); Monocytes # 1.2 K/mm3 (0.1-1.0); Neutrophils # 11.2 K/mm3 (1.8-7.8); Neutrophils % 75.6 % (37.0-80.0); Platelet Count 322 K/mm3 (142-424); Red Blood Count 4.81 M/mm3 (4.60-6.20); Red Cell Distribution Width 12.7 % (11.5-17.5); White Blood Count 14.8 K/mm3 (4.8-10.8)
[2024-12-27] MEDS: humaLOG 100 UNITS/ML 10ML VIAL (SSI) SUBCUT ×2 (06:06→10:53)
[2024-12-27 06:08] LABS: POC Glucose,Bedside 160 (70-110)
[2024-12-27 06:21] LABS: Anion Gap 11.3 mEq/L (5-15); Blood Urea Nitrogen 28 mg/dl (9-20); Calcium 9.2 mg/dl (8.4-10.2); Carbon Dioxide 30 mmol/L (22.0-30.0); Chloride 96 mmol/L (98-107); Creatinine Clearance Estimated 76 mL/min (50-200); Estimated Glomerular Filt Rate 66 ml/min (>60); GFR (African American) 80 ML/MIN (>60); Glucose 168 mg/dl (74-100); Potassium 4.3 mmoL/L (3.5-5.1); Sodium 133 mmol/L (136-145)
[2024-12-27 06:35] LABS: Alanine Aminotransferase 40 U/L (12-78); Albumin Level 3.7 g/dl (3.5-5.0); Albumin/Globulin Ratio 1.5 (1.1-1.8); Alkaline Phosphatase 138 U/L (38-126); Anion Gap 12.6 mEq/L (5-15); Aspartate Amino Transferase 33 U/L (17-59); Bilirubin,Total 0.4 mg/dl (0.2-1.3); Blood Urea Nitrogen 30 mg/dl (9-20); Carbon Dioxide 29 mmol/L (22.0-30.0); Chloride 96 mmol/L (98-107); Creatinine Clearance Estimated 84 mL/min (50-200); Estimated Glomerular Filt Rate 74 ml/min (>60); GFR (African American) 89 ML/MIN (>60); Globulin 2.5 g/dL (1.3-3.2); Glucose 165 mg/dl (74-100); Magnesium 2.4 mg/dl (1.6-2.3); Potassium 4.6 mmoL/L (3.5-5.1); Sodium 133 mmol/L (136-145); Total Protein,Serum 6.2 g/dl (6.3-8.2)
[2024-12-27] MEDS: IPRATROPIUM/ALBUTEROL 3 ML NEB IH ×2 (06:43→10:58)
[2024-12-27] MEDS: SALMETEROL IH (06:43)
[2024-12-27] MEDS: FLUTICASONE IH (06:43)
[2024-12-27] MEDS: BUDESONIDE 0.5MG/2ML NEB 0.5 MG IH (06:43)
[2024-12-27] MEDS: LEVOTHYROXINE 112 MCG PO (08:03)
[2024-12-27] MEDS: ASPIRIN EC 81MG TABLET 81 MG PO (08:04)
[2024-12-27] MEDS: CEFTRIAXONE 1 GM 1 GM in 0.9 % SODIUM CHLORIDE 50 ML IV (08:04)
[2024-12-27] MEDS: AZITHROMYCIN 250MG TABLET 250 MG PO (08:04)
[2024-12-27] MEDS: EMPAGLIFLOZIN 10MG TABLET 10 MG PO (08:05)
[2024-12-27] MEDS: PAT OWN MED ***GABAPENTIN 300MG 300 MG PO (08:06)
[2024-12-27] MEDS: METOPROLOL SUCCINATE XL 25MG TABLET 25 MG PO (08:06)
[2024-12-27] MEDS: SACUBITRIL/VALSARTAN 24-26MG TABLET 1 EACH PO (08:07)
[2024-12-27] MEDS: predniSONE 20MG TAB 40 MG PO (08:07)
[2024-12-27] MEDS: SERTRALINE 50 MG PO (08:08)
[2024-12-27] MEDS: SPIRONOLACTONE 25MG TABLET 25 MG PO (08:09)
[2024-12-27] MEDS: PAT OWN MED ***TAMSULOSIN 0.4MG 0.4 MG PO (08:17)
--- NOTE | 2024-12-27 08:38 | XR_ITS ---
FINAL REPORT TECHNIQUE: Single view chest CLINICAL HISTORY: f/u pneumonia/edema COMPARISON: 12/23/2024 FINDINGS: A single view of the chest was obtained. There is mild cardiomegaly. A [employer] shunt projects over the right hemithorax. Patchy airspace opacities are seen at the lung bases which have improved at the right lung base likely due to resolving pneumonia. There is no pneumothorax. IMPRESSION: Findings consistent with resolving pneumonia. Reviewed, Interpreted and Dictated by Spencer Godfrey MD Transcribed by Maricruz Castellanos Authenticated and [facility]
--- NOTE | 2024-12-27 09:48 | P.PN_ITS ---
Subjective *Date: 12/27/24 *Time: 10:21 Interval history: No acute respiratory vents overnight. Denies any new respiratory complaints Pulmonology Exam Inpatient Vital signs and Labs for Last 24 Hours: Temp Pulse Resp BP Pulse Ox O2 Del Method O2 Flow Rate 98.0 F 104 H 18 133/82 98 Nasal Cannula 2 12/27/24 07:24 12/27/24 07:24 12/27/24 07:24 12/27/24 07:24 12/27/24 07:24 12/27/24 09:00 12/27/24 09:00 FiO2 28 12/26/24 18:10 Laboratory Results - last 24 hr 12/26/24 06:03: C-Reactive Protein 72.8 H 12/26/24 10:48: POC Glucose 181 H 12/26/24 12:35: WBC 12.3 H, RBC 4.78, Hgb 14.5, Hct 42.1, MCV 88.1, MCH 30.3, MCHC 34.4, RDW 12.7, Plt Count 260, MPV 9.1, Neut % (Auto) 87.6 H, Lymph % (Auto) 6.7 L, [place] % (Auto) 3.7, Eos % (Auto) 0.7, Baso % (Auto) 0.2, Neut # (Auto) 10.8 H, Lymph # (Auto) 0.8, [place] # (Auto) 0.5, Eos # (Auto) 0.1, Baso # (Auto) 0.0, Sodium 131 L, Potassium 4.4, Chloride 99, Carbon Dioxide 27, Anion Gap 9.4, BUN 20, Creatinine 0.80, Estimated Creat Clear 85, Estimated GFR 95, Est GFR ( Amer) 115, Glucose 226 H, Calcium 8.9 12/26/24 14:30: ABG O2 Sat (Measured) 74.1 L, POC VBG O2 Sat (Anders) 74.4 L 12/26/24 16:02: POC Glucose 368 H* 12/26/24 20:47: POC Glucose 156 H 12/27/24 05:50: WBC 14.8 H, RBC 4.81, Hgb 14.4, Hct 42.4, MCV 88.1, MCH 29.9, MCHC 34.0, RDW 12.7, Plt Count 322, MPV 9.2, Neut % (Auto) 75.6, Lymph % (Auto) 15.0, [place] % (Auto) 8.0, Eos % (Auto) 0.3, Baso % (Auto) 0.2, Neut # (Auto) 11.2 H, Lymph # (Auto) 2.2, [place] # (Auto) 1.2 H, Eos # (Auto) 0.0, Baso # (Auto) 0.0, Sodium 133 L 12/27/24 05:50: Sodium 133 L, Potassium 4.3 12/27/24 05:50: Potassium 4.6, Chloride 96 L 12/27/24 05:50: Chloride 96 L, Carbon Dioxide 30 12/27/24 05:50: Carbon Dioxide 29, Anion Gap 11.3 12/27/24 05:50: Anion Gap 12.6, BUN 28 H D 12/27/24 05:50: BUN 30 H, Creatinine 1.10 D 12/27/24 05:50: Creatinine 1.00, Estimated Creat Clear 76 12/27/24 05:50: Estimated Creat Clear 84, Estimated GFR 66 12/27/24 05:50: Estimated GFR 74, Est GFR ( Amer) 80 D 12/27/24 05:50: Est GFR ( Amer) 89, Glucose 168 H D 12/27/24 05:50: Glucose 165 H, Calcium 9.2 12/27/24 05:50: Calcium 9.0, Magnesium 2.4 H, Total Bilirubin 0.4, AST 33, ALT 40, Alkaline Phosphatase 138 H, Total Protein 6.2 L, Albumin 3.7, Globulin 2.5, Albumin/Globulin Ratio 1.5 12/27/24 05:51: POC Glucose 160 H Temp Pulse Resp BP Pulse Ox O2 Del Method O2 Flow Rate 98.3 F 111 H 18 144/70 H 94 L Nasal Cannula 1 12/25/24 08:00 12/25/24 08:00 12/25/24 08:00 12/25/24 08:00 12/25/24 08:00 12/25/24 08:00 12/25/24 08:00 FiO2 28 12/23/24 19:04 Laboratory Results - last 24 hr 12/24/24 06:06: POC Glucose 217 H 12/24/24 06:38: Hemoglobin A1c 6.8 H 12/24/24 11:21: POC Glucose 145 H 12/24/24 17:16: POC Glucose 123 H 12/24/24 23:18: POC Glucose 202 H 12/25/24 06:19: POC Glucose 197 H 12/25/24 06:44: WBC 10.8, RBC 4.82, Hgb 14.2, Hct 42.4, MCV 88.0, MCH 29.5, MCHC 33.5, RDW 12.7, Plt Count 239, MPV 9.2, Neut % (Auto) 64.0, Lymph % (Auto) 23.1, [place] % (Auto) 8.4, Eos % (Auto) 3.2, Baso % (Auto) 0.5, Neut # (Auto) 6.9, Lymph # (Auto) 2.5, [place] # (Auto) 0.9, Eos # (Auto) 0.4, Baso # (Auto) 0.1, Sodium 135 L, Potassium 4.0, Chloride 99, Carbon Dioxide 31 H, Anion Gap 9.0, BUN 12, Creatinine 0.90 D, Estimated Creat Clear 87, Estimated GFR 83, Est GFR ( Amer) 101 D, Glucose 205 H D, Calcium 9.3 I & O for Labs for Last 24 Hours: Intake & Output 12/25/24 12/25/24 12/26/24 12/27/24 00:59 23:59 23:59 23:59 Intake Total 1510 / 1510 1320 / 1800 1262 / 1502 480 / 480 Output Total 0 / 0 0 / 0 300 / 300 1 / 1 Balance 1510 / 1510 1320 / 1800 962 / 1202 479 / 479 Weight 200 lb 1.006 oz 200 lb 1.112 oz 195 lb 11.2 oz 193 lb 1.6 oz Intake & Output 12/22/24 12/23/24 12/25/24 12/25/24 23:59 23:59 00:59 23:59 Intake Total 660 / 870 1510 / 1510 600 / 600 Output Total 200 / 200 0 / 0 0 / 0 Balance 460 / 670 1510 / 1510 600 / 600 Weight 180 lb 200 lb 1 oz 200 lb 1.006 oz 200 lb 1.006 oz Microbiology Reports for the Last 24 Hours: Microbiology 12/23/24 01:45 Blood Blood Culture - Preliminary NO GROWTH AFTER 4 DAYS 12/23/24 01:45 Blood Blood Culture - Preliminary NO GROWTH AFTER 4 DAYS 12/23/24 09:15 Sputum - Expectorated Sputum Gram Stain - Final 12/23/24 09:15 Sputum - Expectorated Sputum Sputum Culture - Final Microbiology 12/23/24 09:15 Sputum - Expectorated Sputum Gram Stain - Final 12/23/24 09:15 Sputum - Expectorated Sputum Sputum Culture - Preliminary 12/23/24 01:45 Blood Blood Culture - Preliminary NO GROWTH AFTER 48 HOURS 12/23/24 01:45 Blood Blood Culture - Preliminary NO GROWTH AFTER 48 HOURS Constitutional: Present moderate distress Head: Present normocephalic and atraumatic ENT: Present normal exam, normal oropharynx and mucous membranes moist Neck: Present normal inspection and full ROM Respiratory: Present respiratory distress, crackles and able to speak in complete sentences; Absent rhonchi or wheezes Cardiac: Present S1/S2, Tachycardia and radial pulses present GI: Present soft and distention; Absent tenderness or guarding Skin: Present intact; Absent cyanosis or jaundice Neuro: Present alert, awake and oriented x 3 Extremities: Present normal inspection; Absent clubbing or cyanosis Psychiatric: Present normal affect and cooperative Assessment and Plan *Assessment and plan (1) Pneumonia: Status: Acute Category: Medical Code(s): J18.9 - Pneumonia, unspecified organism (2) Acute and chronic respiratory failure with hypoxia: Status: Acute Category: Medical Code(s): J96.21 - Acute and chronic respiratory failure with hypoxia Plan Mr. 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 Diffuse groundglass opacities right greater than left with septal thickening. No evidence of p ulmonary embolism. Denies any orthopnea or PND. Denies any lower extremity swelling. No significant evidence of leukocytosis. Comprehensive respiratory viral PCR panel negative. BNP within normal limits. CRP elevated at 77. Pro-Lei within normal limits. Currently receiving ceftriaxone and azithromycin. Echo from 2020 dilated LA with diastolic dysfunction. LVEF within normal limits at 55%. Interval update: Repeat echocardiogram EF 25%. Left heart cath nonischemic CAD, no stents placed. PCWP at 13 mm Hg. PA pressures 30/20 mm Hg. Chest x-ray continue to show groundglass opacities right greater than left. Slight worsening leukocytosis. Sputum no bacteria, yeast isolated. Will request identification. Worsening leukocytosis CRP stable, 77 on admission to 73 Plan: Agree with Lasix 40 mg IV once Continue oxygen supplementation as needed to maintain O2 saturation goal of 90% and above. 1 L nasal cannula at rest, will continue to wean as tolerated Continue ceftriaxone and azithromycin, antibiotics can be weaned to cefdinir to complete a total of 5-day course Prednisone 40 mg daily Incentive spirometry and flutter valve
--- NOTE | 2024-12-27 11:40 | CARE MANAGER ---
Patient will require Oxygen at home and requests Brayden has provider. Information sent.
--- NOTE | 2024-12-27 12:16 | EXP.DC.SUM ---
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 Ugalde, to the emergency department with worsening shortness of breath and hypoxia. He reports that this morning, while feeding, he felt more dyspneic than usual and checked his oxygen saturation, finding it in the 70-80s. Throughout the day, including while walking and after returning from a home, his saturation ranged from 60s to 88%, with a heart rate exceeding 100 bpm. He denies chest pain, fever today, or history of pulmonary embolism. He notes a temperature of 100?F Wednesday night and was seen by Dr. Gray, who prescribed Augmentin and cough medication for presumed pneumonia; he last took Augmentin this morning. His cough has been manageable. History was obtained via interactive discussion with the patient, family, and chart review. On arrival, the patient was afebrile, normotensive, with oxygen saturation 88-90% on room air. Initial vital signs were not fully specified but noted as hemodynamically stable. Physical exam revealed clear lungs bilaterally despite mild dyspnea.Workup included labs and imaging. Labs showed WBC 10.1 K/?L, BUN 23 mg/dL, creatinine 0.90 mg/dL (eGFR 83 mL/min/1.73m?), glucose 165 mg/dL, INR 1.34, alkaline phosphatase 170 U/L, troponin <0.01 ng/mL, and BNP 54.5 pg/mL; VBG revealed pH 7.38, pCO2 43.8 mmHg, pO2 48.7 mmHg, and saturation 83.2%. CTA chest showed perihilar infiltration and chronic lung changes, with no pulmonary embolism. The patient was ambulated and desaturated to 80% on room air. Given his history, exam, and workup, the presentation most likely represents acute hypoxic respiratory failure secondary to pneumonia and underlying interstitial lung disease. An interactive discussion was held with the patient regarding his condition, and ER physician and hospitalist agreed on admission. The patient was agreeable to inpatient management. Hospital Course Hospital Course Hospital Course: Toan Bearden is a 69-year-old male who presents with acute hypoxemic respiratory failure secondary to pneumonia, interstitial lung disease. Hospital course complicated by new diagnosis of HFrEF. #Acute hypoxic respiratory failure #Community-acquired pneumonia #Interstitial lung disease exacerbation ? Does have mild leukocytosis of 14 on day of discharge, likely from steroid use. Pneumonia improving, weaning O2 requirements, no signs of sepsis. ? Weaned to 1 L nasal cannula, saturating 86% on room air at rest. ? Clinically improved with ceftriaxone, azithromycin, prednisone, DuoNebs, Pulmicort. ? Discharged with cefdinir for 3 more days, prednisone 40 mg for 2 more days. Continue home Advair. ? Will follow-up with pulmonology within 2 weeks. #HFrEF, new diagnosis ? ECHO revealed: Severe reduction in LV systolic function (LVEF 25%). Near akinesis of the septal, anteroseptal, inferoseptal, and anterior LV hicks, as well as the LV apex. Mild RV dilation with mild reduction in RV function. Mild MR. ? Cardiology consulted, s/p [facility] 12/26/2024 with nonocclusive coronary artery disease and euvolemic pressures. No stents. ? Continue Entresto, spironolactone 25 mg, metoprolol succinate 25 mg, Jardiance 10 mg. No signs of volume overload. ? LifeVest ordered and fitted. ? Will follow-up with cardiology within 1 week. #Atrial Fibrillation ? Continue metoprolol succinate 25 mg, Xarelto 20 mg. Currently rate controlled. #GERD ? Started Protonix 40 mg. #Hypothyroid ? Continue levothyroxine 112 mcg daily #BPH ? Continue tamsulosin 0.4 mg daily #Type 2 Diabetes Mellitus - A1c 6.8. Well-controlled. Continue Jardiance as above. - Continue gabapentin per home regimen for neuropathy Total time spent on discharge: 32 minutes on chart review, counseling, documentation, and direct care with patient. Exam Data for Last 24 hours Vital signs and Labs for Last 24 Hours: Temp Pulse Resp BP Pulse Ox O2 Del Method O2 Flow Rate 98.0 F 93 H 18 133/82 93 L Nasal Cannula 1 12/27/24 07:24 12/27/24 11:01 12/27/24 07:24 12/27/24 07:24 12/27/24 11:01 12/27/24 11:01 12/27/24 11:01 FiO2 28 12/26/24 18:10 Laboratory Results - last 24 hr 12/26/24 12:35: WBC 12.3 H, RBC 4.78, Hgb 14.5, Hct 42.1, MCV 88.1, MCH 30.3, MCHC 34.4, RDW 12.7, Plt Count 260, MPV 9.1, Neut % (Auto) 87.6 H, Lymph % (Auto) 6.7 L, [place] % (Auto) 3.7, Eos % (Auto) 0.7, Baso % (Auto) 0.2, Neut # (Auto) 10.8 H, Lymph # (Auto) 0.8, [place] # (Auto) 0.5, Eos # (Auto) 0.1, Baso # (Auto) 0.0, Sodium 131 L, Potassium 4.4, Chloride 99, Carbon Dioxide 27, Anion Gap 9.4, BUN 20, Creatinine 0.80, Estimated Creat Clear 85, Estimated GFR 95, Est GFR ( Amer) 115, Glucose 226 H, Calcium 8.9 12/26/24 14:30: ABG O2 Sat (Measured) 74.1 L, POC VBG O2 Sat (Anders) 74.4 L 12/26/24 16:02: POC Glucose 368 H* 12/26/24 20:47: POC Glucose 156 H 12/27/24 05:50: WBC 14.8 H, RBC 4.81, Hgb 14.4, Hct 42.4, MCV 88.1, MCH 29.9, MCHC 34.0, RDW 12.7, Plt Count 322, MPV 9.2, Neut % (Auto) 75.6, Lymph % (Auto) 15.0, [place] % (Auto) 8.0, Eos % (Auto) 0.3, Baso % (Auto) 0.2, Neut # (Auto) 11.2 H, Lymph # (Auto) 2.2, [place] # (Auto) 1.2 H, Eos # (Auto) 0.0, Baso # (Auto) 0.0, Sodium 133 L 12/27/24 05:50: Sodium 133 L, Potassium 4.3 12/27/24 05:50: Potassium 4.6, Chloride 96 L 12/27/24 05:50: Chloride 96 L, Carbon Dioxide 30 12/27/24 05:50: Carbon Dioxide 29, Anion Gap 11.3 12/27/24 05:50: Anion Gap 12.6, BUN 28 H D 12/27/24 05:50: BUN 30 H, Creatinine 1.10 D 12/27/24 05:50: Creatinine 1.00, Estimated Creat Clear 76 12/27/24 05:50: Estimated Creat Clear 84, Estimated GFR 66 12/27/24 05:50: Estimated GFR 74, Est GFR ( Amer) 80 D 12/27/24 05:50: Est GFR ( Amer) 89, Glucose 168 H D 12/27/24 05:50: Glucose 165 H, Calcium 9.2 12/27/24 05:50: Calcium 9.0, Magnesium 2.4 H, Total Bilirubin 0.4, AST 33, ALT 40, Alkaline Phosphatase 138 H, Total Protein 6.2 L, Albumin 3.7, Globulin 2.5, Albumin/Globulin Ratio 1.5 12/27/24 05:51: POC Glucose 160 H I & O for Last 24 hours: Intake & Output 12/25/24 12/25/24 12/26/24 12/27/24 00:59 23:59 23:59 23:59 Intake Total 1510 / 1510 1320 / 1800 1262 / 1502 480 / 480 Output Total 0 / 0 0 / 0 300 / 300 1 / 1 Balance 1510 / 1510 1320 / 1800 962 / 1202 479 / 479 Weight 90.747 kg 90.75 kg 88.768 kg 87.589 kg Microbiology Reports for the Last 24 Hours: Microbiology 12/23/24 01:45 Blood Blood Culture - Preliminary NO GROWTH AFTER 4 DAYS 12/23/24 01:45 Blood Blood Culture - Preliminary NO GROWTH AFTER 4 DAYS 12/23/24 09:15 Sputum - Expectorated Sputum Gram Stain - Final 12/23/24 09:15 Sputum - Expectorated Sputum Sputum Culture - Final Constitutional Constitutional: no acute distress *Routine HEENT Exam Head: Present normocephalic Eye: Present EOMI and PERRL ENT: Present mucous membranes moist *Routine Neck Exam Neck: Present supple; Absent lymphadenopathy *Routine Respiratory Exam Respiratory: Present crackles; Absent CTA bilaterally *Routine Cardiovascular Exam Cardiovascular: Present RRR *Routine Abdominal Exam Abdominal: Present soft and normoactive bowel sounds; Absent tenderness *Routine Extremities Exam Extremities: Absent cyanosis, clubbing or edema *Routine Skin Exam Skin: Present warm; Absent rash *Routine Neurological Exam Neurological: Present alert and oriented X3 Results Data Completed and Pending Labs on day of discharge: Labs from last 24 hours 12/27/24 12/27/24 12/27/24 05:51 05:50 05:50 WBC RBC Hgb Hct MCV MCH MCHC RDW Plt Count MPV Neut % (Auto) Lymph % (Auto) [place] % (Auto) Eos % (Auto) Baso % (Auto) Neut # (Auto) Lymph # (Auto) [place] # (Auto) Eos # (Auto) Baso # (Auto) ABG O2 Sat (Measured) POC VBG O2 Sat (Anders) Sodium Potassium Chloride Carbon Dioxide Anion Gap BUN Creatinine Estimated Creat Clear Estimated GFR Est GFR ( Amer) Glucose 165 H POC Glucose 160 H Calcium 9.0 9.2 Magnesium 2.4 H Total Bilirubin 0.4 AST 33 ALT 40 Alkaline Phosphatase 138 H Total Protein 6.2 L Albumin 3.7 Globulin 2.5 Albumin/Globulin Ratio 1.5 12/27/24 12/27/24 12/27/24 05:50 05:50 05:50 WBC RBC Hgb Hct MCV MCH MCHC RDW Plt Count MPV Neut % (Auto) Lymph % (Auto) [place] % (Auto) Eos % (Auto) Baso % (Auto) Neut # (Auto) Lymph # (Auto) [place] # (Auto) Eos # (Auto) Baso # (Auto) ABG O2 Sat (Measured) POC VBG O2 Sat (Anders) Sodium Potassium Chloride Carbon Dioxide Anion Gap BUN Creatinine Estimated Creat Clear 84 Estimated GFR 74 66 Est GFR ( Amer) 89 80 D Glucose 168 H D POC Glucose Calcium Magnesium Total Bilirubin AST ALT Alkaline Phosphatase Total Protein Albumin Globulin Albumin/Globulin Ratio 12/27/24 12/27/24 12/27/24 05:50 05:50 05:50 WBC RBC Hgb Hct MCV MCH MCHC RDW Plt Count MPV Neut % (Auto) Lymph % (Auto) [place] % (Auto) Eos % (Auto) Baso % (Auto) Neut # (Auto) Lymph # (Auto) [place] # (Auto) Eos # (Auto) Baso # (Auto) ABG O2 Sat (Measured) POC VBG O2 Sat (Anders) Sodium Potassium Chloride Carbon Dioxide Anion Gap 12.6 BUN 30 H 28 H D Creatinine 1.00 1.10 D Estimated Creat Clear 76 Estimated GFR Est GFR ( Amer) Glucose POC Glucose Calcium Magnesium Total Bilirubin AST ALT Alkaline Phosphatase Total Protein Albumin Globulin Albumin/Globulin Ratio 12/27/24 12/27/24 12/27/24 05:50 05:50 05:50 WBC RBC Hgb Hct MCV MCH MCHC RDW Plt Count MPV Neut % (Auto) Lymph % (Auto) [place] % (Auto) Eos % (Auto) Baso % (Auto) Neut # (Auto) Lymph # (Auto) [place] # (Auto) Eos # (Auto) Baso # (Auto) ABG O2 Sat (Measured) POC VBG O2 Sat (Anders) Sodium Potassium 4.6 Chloride 96 L 96 L Carbon Dioxide 29 30 Anion Gap 11.3 BUN Creatinine Estimated Creat Clear Estimated GFR Est GFR ( Amer) Glucose POC Glucose Calcium Magnesium Total Bilirubin AST ALT Alkaline Phosphatase Total Protein Albumin Globulin Albumin/Globulin Ratio 12/27/24 12/27/24 12/26/24 05:50 05:50 20:47 WBC 14.8 H RBC 4.81 Hgb 14.4 Hct 42.4 MCV 88.1 MCH 29.9 MCHC 34.0 RDW 12.7 Plt Count 322 MPV 9.2 Neut % (Auto) 75.6 Lymph % (Auto) 15.0 [place] % (Auto) 8.0 Eos % (Auto) 0.3 Baso % (Auto) 0.2 Neut # (Auto) 11.2 H Lymph # (Auto) 2.2 [place] # (Auto) 1.2 H Eos # (Auto) 0.0 Baso # (Auto) 0.0 ABG O2 Sat (Measured) POC VBG O2 Sat (Anders) Sodium 133 L 133 L Potassium 4.3 Chloride Carbon Dioxide Anion Gap BUN Creatinine Estimated Creat Clear Estimated GFR Est GFR ( Amer) Glucose POC Glucose 156 H Calcium Magnesium Total Bilirubin AST ALT Alkaline Phosphatase Total Protein Albumin Globulin Albumin/Globulin Ratio 12/26/24 12/26/24 12/26/24 16:02 14:30 12:35 WBC 12.3 H RBC 4.78 Hgb 14.5 Hct 42.1 MCV 88.1 MCH 30.3 MCHC 34.4 RDW 12.7 Plt Count 260 MPV 9.1 Neut % (Auto) 87.6 H Lymph % (Auto) 6.7 L [place] % (Auto) 3.7 Eos % (Auto) 0.7 Baso % (Auto) 0.2 Neut # (Auto) 10.8 H Lymph # (Auto) 0.8 [place] # (Auto) 0.5 Eos # (Auto) 0.1 Baso # (Auto) 0.0 ABG O2 Sat (Measured) 74.1 L POC VBG O2 Sat (Anders) 74.4 L Sodium 131 L Potassium 4.4 Chloride 99 Carbon Dioxide 27 Anion Gap 9.4 BUN 20 Creatinine 0.80 Estimated Creat Clear 85 Estimated GFR 95 Est GFR ( Amer) 115 Glucose 226 H POC Glucose 368 H* Calcium 8.9 Magnesium Total Bilirubin AST ALT Alkaline Phosphatase Total Protein Albumin Globulin Albumin/Globulin Ratio Preliminary micro results at discharge 12/23/24 01:45 Blood Culture - Preliminary Blood NO GROWTH AFTER 4 DAYS 12/23/24 01:45 Blood Culture - Preliminary Blood NO GROWTH AFTER 4 DAYS DS: Diagnosis Discharge Diagnosis (1) Pneumonia: Status: Acute Code(s): J18.9 - Pneumonia, unspecified organism (2) Acute and chronic respiratory failure with hypoxia: Status: Acute Code(s): J96.21 - Acute and chronic respiratory failure with hypoxia Meds Home Medications and Allergies Home Medications ?Medication ?Instructions ?Recorded ?Confirmed ?Type naproxen 500 mg tablet 500 mg PO BID PRN Pain or 11/02/24 12/23/24 Rx inflammation #60 tabs famotidine 20 mg tablet 20 mg PO HS For GI protection #90 12/07/24 12/23/24 Rx tabs albuterol sulfate 90 mcg/actuation 1 inh inhalation QIDP PRN 12/23/24 12/23/24 History aerosol inhaler shortness of breath or wheezing aspirin 81 mg tablet,delayed 81 mg PO DAILY 12/23/24 12/23/24 History release azelastine 137 mcg (0.1 %) nasal 1 spray intranasal BID 12/23/24 12/23/24 History spray cephalexin 250 mg tablet 250 mg PO HS 12/23/24 12/23/24 History codeine 10 mg-guaifenesin 100 mg/5 5 - 10 ml PO Q4-6H 12/23/24 12/23/24 History mL oral liquid diltiazem HCl 240 mg 240 mg PO HS 12/23/24 12/23/24 History capsule,extended release 24 hr fexofenadine 180 mg tablet 180 mg PO HS 12/23/24 12/23/24 History finasteride 5 mg tablet 5 mg PO HS 12/23/24 12/23/24 History fluticasone 500 mcg-salmeterol 50 1 ea inhalation BID 12/23/24 12/23/24 History mcg/dose blistr powdr for inhalation (Ricardaxela Inhub) gabapentin 300 mg capsule 300 mg PO DAILY 12/23/24 12/23/24 History gabapentin 300 mg capsule 600 mg PO HS 12/23/24 12/23/24 History levothyroxine 112 mcg tablet 112 mcg PO DAILY 12/23/24 12/23/24 History montelukast 10 mg tablet 10 mg PO HS 12/23/24 12/23/24 History rosuvastatin 10 mg tablet 10 mg PO HS 12/23/24 12/23/24 History sertraline 50 mg tablet 50 mg PO DAILY 12/23/24 12/23/24 History tamsulosin 0.4 mg capsule 0.4 mg PO DAILY 12/23/24 12/23/24 History trazodone 50 mg tablet 50 mg PO HS 12/23/24 12/23/24 History cefdinir 300 mg capsule 300 mg PO BID 3 days #6 caps 12/27/24 Rx empagliflozin 10 mg tablet 10 mg PO DAILY 30 days #30 tabs 12/27/24 Rx (Jardiance) metoprolol succinate 25 mg 25 mg PO DAILY 30 days #30 tabs 12/27/24 Rx tablet,extended release 24 hr pantoprazole 40 mg tablet,delayed 40 mg PO DAILY 30 days #30 tabs 12/27/24 Rx release (Protonix) prednisone 20 mg tablet 40 mg (2 x 20 mg) PO DAILY 2 days 12/27/24 Rx #4 tabs rivaroxaban 10 mg tablet (Xarelto) 20 mg (2 x 10 mg) PO QPMWITHMEAL 12/27/24 Rx 30 days #60 tabs sacubitril 24 mg-valsartan 26 mg 1 tab PO BID 30 days #60 tabs 12/27/24 Rx tablet (Entresto) spironolactone 25 mg tablet 25 mg PO DAILY 30 days #30 tabs 12/27/24 Rx New Prescriptions to Start Prescriptions: Raul Melgaragliflozin [Jardiance] Paradise,Raul metoprolol succinate Paradise,Raul pantoprazole [Protonix] Paradise,Raul prednisone Paradise,Raul rivaroxaban [Xarelto] Paradise,Raul sacubitril-valsartan [Entresto] Paradise,Raul spironolactone Paradise,Raul Allergies Allergy/AdvReac Type Severity Reaction Status Date / Time Sulfa (Sulfonamide Allergy Intermediate Rash Verified 12/22/24 22:58 Antibiotics) Discharge Plan Disposition Patient Disposition: Home, Self-Care Condition: Fair Discharge Order Discharge Orders: Discharge Order (Routine); Ordered 12/27/24 Ordered By: Raul Ghotra Follow up Plan Follow up with: Cristopher Gray MD [Primary Care Provider] - 01/01/25 2:00 pm Param Singh MD [Staff Physician] - 01/02/25 10:00 am Bianka Ugalde MD [Physician] - 01/10/25 Prescriptions/Medication Reconciliation: New Jardiance 10 mg Tablet 10 mg PO DAILY 30 Days Qty: 30 0RF prednisone 20 mg Tablet 40 mg PO DAILY 2 Days Qty: 4 0RF spironolactone 25 mg Tablet 25 mg PO DAILY 30 Days Qty: 30 0RF metoprolol succinate 25 mg Tablet Extended Release 24 Hr 25 mg PO DAILY 30 Days Qty: 30 0RF Xarelto 10 mg Tablet 20 mg PO QPMWITHMEAL 30 Days Qty: 60 0RF Entresto 24-26 mg Tablet 1 tab PO BID 30 Days Qty: 60 0RF cefdinir 300 mg capsule 300 mg PO BID 3 Days Qty: 6 0RF pantoprazole [Protonix] 40 mg tablet,delayed release (DR/EC) 40 mg PO DAILY 30 Days Qty: 30 0RF Rx Instructions: Take on empty stomach. Continued naproxen 500 mg tablet 500 mg PO BID PRN (Reason: Pain or inflammation) Qty: 60 1RF Rx Instructions: Take with food or meal famotidine 20 mg tablet 20 mg PO HS Qty: 90 1RF fluticasone propion-salmeterol [Wixela Inhub] 500-50 mcg/dose blister with device 1 ea INHALATION BID Patient Comments: INHALE 1 PUFF BY MOUTH TWICE A DAY cephalexin 250 mg Tablet 250 mg PO HS tamsulosin 0.4 mg Capsule 0.4 mg PO DAILY codeine-guaifenesin 10-100 mg/5 mL liquid 5 - 10 ml PO Q4-6H Patient Comments: TAKE 5 TO 10 ML (1 TO 2 TEASPOONSFUL) BY MOUTH EVERY 4 TO 6 HOURS NEEDED FOR COLD SYMPTOMS/COLD diltiazem HCl 240 mg capsule,extended release 24hr 240 mg PO HS Patient Comments: TAKE 1 CAPSULE BY MOUTH EVERY DAY fexofenadine 180 mg tablet 180 mg PO HS Patient Comments: TAKE 1 TABLET BY MOUTH EVERY DAY aspirin 81 mg Tablet,Delayed Release (Dr/Ec) 81 mg PO DAILY azelastine 137 mcg (0.1 %) [place],Non-Aerosol 1 spray INTRANASAL BID Rx Instructions: administer into each nostril albuterol sulfate 90 mcg/actuation HFA aerosol inhaler 1 inh INHALATION QIDP PRN (Reason: shortness of breath or wheezing) trazodone 50 mg tablet 50 mg PO HS Patient Comments: TAKE 1 TABLET BY MOUTH NIGHTLY AT BEDTIME gabapentin 300 mg capsule 300 mg PO DAILY montelukast 10 mg tablet 10 mg PO HS Patient Comments: TAKE 1 TABLET ORALLY DAILY sertraline 50 mg tablet 50 mg PO DAILY Patient Comments: TAKE 1 TABLET BY MOUTH EVERY DAY finasteride 5 mg tablet 5 mg PO HS Patient Comments: TAKE 1 TABLET BY MOUTH EVERY DAY FOR 90 DAYS levothyroxine 112 mcg tablet 112 mcg PO DAILY Patient Comments: TAKE ONE TABLET BY MOUTH EVERY DAY rosuvastatin 10 mg tablet 10 mg PO HS Patient Comments: TAKE 1 TABLET BY MOUTH EVERY DAY gabapentin 300 mg capsule 600 mg PO HS Discontinued amoxicillin-pot clavulanate 875-125 mg Tablet 1 tab PO BID valsartan 160 mg tablet 160 mg PO DAILY Patient Comments: TAKE 1 TABLET BY MOUTH EVERY DAY Problem Reconciliation Problems Reviewed?: Yes Patient Discharge Instructions Patient Instructions: Heart-Healthy Diet, DI for Heart Failure, DI for Pneumonia -- Adult, DI for Cardiac Catheterization, DI for Surgical Site Infection Print Language: Macedonian Providers Primary Care Provider: Cristopher Gray Admit Provider: Toan Arellano Attending Provider: Toan Arellano
[2024-12-27 13:43] LABS: Lactate Dehydrogenase 378 U/L (313-618)
[2024-12-27 18:07] LABS: POC Glucose,Bedside 161 (70-110)
--- NOTE | 2024-12-28 09:57 | SW/DCPLANNER ---
Spoke with patient on the phone. Patient stated that he is doing very well. Patient stated that he was treated like a peter while he was in the hospital. Patient stated that he is aware of his upcoming appointments. Patient stated that he was able to get his medicine picked up from clinic pharmacy. Patient stated that he has no concerns or questions at this time. Nehemiah Cooney
== END 2024-12-27 16:11 | disposition home or self-care (01) | DRG 193 ==
LOC: ER 12-23 01:36 → 2ND 12-23 01:44
PROVIDERS: Internal Medicine; Internal Medicine Pulmonary Disease; Nurse Practitioner; Nurse Practitioner Family; Student in an Organized Health Care Education/Training Program; Admitting Provider Internal Medicine Adolescent Medicine; Emergency Provider Emergency Medicine; PCP Internal Medicine; Visit Provider Internal Medicine Adolescent Medicine
PROC: 4A023N8 Measurement of Cardiac Sampling and Pressure, Bilateral, Percutaneous Approach (ICD-10-PCS; principal; 2024-12-26 07:15)
DX: J18.9 Pneumonia, unspecified organism (principal); J96.21 Acute and chronic respiratory failure with hypoxia; I11.0 Hypertensive heart disease with heart failure; I42.9 Cardiomyopathy, unspecified; I50.20 Unspecified systolic (congestive) heart failure; I48.91 Unspecified atrial fibrillation; E03.9 Hypothyroidism, unspecified; Z86.16 Personal history of COVID-19; J44.9 Chronic obstructive pulmonary disease, unspecified; Z79.899 Other long term (current) drug therapy; Z88.2 Allergy status to sulfonamides; Z79.01 Long term (current) use of anticoagulants; Z79.82 Long term (current) use of aspirin
CPT/HCPCS: 36415; 71045; 71275; 80048; 80053; 80061; 82803; 82810; 82962; 83036; 83615; 83735; 83880; 84100; 84145; 84484; 85025; 85610; 86140; 87040; 87070; 87106; 87205; 87633; 87636; 93005; 93306; 93460; 94618; 94640; 94760; 94761; 99152; 99285; C1725; C1769; C1894; J0456; J0696; J1200; J1644; J1650; J1940; J2250; J3010; J3475; J7050; J7620; Q9967

== ENCOUNTER 2025-01-08 12:08 | Outpatient (CLI) | payer MEDICARE, BC, SELFPAY ==
--- NOTE | 2025-01-08 12:11 | XR_ITS ---
FINAL REPORT CLINICAL HISTORY: SOB. COMPARISON: 12/27/2024 FINDINGS: 2 views of the chest were obtained . The heart is normal in size. The mediastinum is within normal limits. Presumed shunt tubing is seen coursing across the right chest. There are bilateral interstitial opacities are similar to prior exam. There is slight improved right basilar airspace disease. There is no effusion or pneumothorax. IMPRESSION: Stable interstitial opacities with improved multifocal right base airspace disease. Reviewed, Interpreted and Dictated by Radha Dasilva MD Transcribed by Maricruz Castellanos Authenticated and [facility]
== END 2025-01-08 23:59 | disposition home or self-care (01) ==
LOC: RAD 12:09
PROVIDERS: PCP Internal Medicine; Visit Provider Internal Medicine Pulmonary Disease
DX: R06.02 Shortness of breath (principal)
CPT/HCPCS: 71046

== ENCOUNTER 2025-01-25 08:49 | Outpatient (POV) | payer MEDICARE, BC, SELFPAY ==
--- NOTE | 2025-01-25 08:57 | EXP.PAIN.SOA ---
[facility] Disclaimer: The information contained in this section may have been updated after the patient was seen, as this information can be updated by other users. Medical History Acute sinusitis Bilateral serous otitis media Viral syndrome Hematoma of right lower extremity Contusion of right lower extremity Acute bronchitis Acute sinusitis Cough variant asthma Muscle spasms of both lower extremities Encounter for screening for malignant neoplasm of prostate Impaired glucose tolerance Encounter for immunization Left hip pain Impaired glucose tolerance Encounter for screening for malignant neoplasm of prostate Encounter for laboratory testing for COVID-19 virus Bilateral otitis media Bronchitis Acute and chronic respiratory failure with hypoxia COPD mixed type Chronic dyspnea Multiple pulmonary nodules ILD (interstitial lung disease) Restrictive lung disease History of 2019 novel coronavirus disease (COVID-19) Dyspnea on exertion Exposure to COVID-19 virus Surgical History History of surgery on arm History of nasal surgery History of cholecystectomy History of non-cataract eye surgery History of lumbar surgery Family History Mother Lung disease Social History Smoking Status: Never smoker alcohol intake: never substance use type: denies use current occupational status: other Travel in the last 8 weeks: None household members: none housing: house PM Subjective & Objective Subjective Subjective:: Patient is a pleasant 70-year-old male who presents today for 1-month follow-up. Today he rates his pain a 2 out of 10 currently however does state that his right knee is still giving him lots of fits and when he has been up doing more it will go to an 8 out of 10. He states that the pain is interfering with his ability to perform activities of daily living such as cooking and cleaning. He does state that he feels like it is a lot grinding and crunching when he is up walking. He feels like there is a lot of mobility issues related to this. Patient at our last visit was going to be scheduled for bilateral knee intra-articular injections however he states the left is doing okay. patient denies any new falls or injuries however does state from our last appointment he was hospitalized with pneumonia for about 6 days. Patient is still recovering from all of this. He does state that he has had follow-ups with Doctor Luis, Doctor Gray and Dr. Shaffer. He states he did talk to those providers regarding having the intra-articular knee injections and that they did not have any contraindications. He does state that his heart doctor did mention that he may have to come off his blood thinner. Patient does state that they are in the process of trying to get him still scheduled for an MRI of his heart and he would also still like to get updated imaging of his low back. Patient states he is still had trouble getting in for that imaging at . He does state that he is going to try and make some more phone calls relating to this coming up. Overall he is stating that his low back and buttocks area is still doing well from the last injections.Patient did previously have a right piriformis injection back in November 28 that did provide 75% improvement. his Jayant has been reviewed and is appropriate. Review of Systems: General: No recent weight changes, no fever, no sleep disturbances Respiratory: No cough, no shortness of air, no recurring pulmonary infections Cardiovascular/peripheral vascular: No chest pain, no palpitations, no edema, no shortness of breath Gastrointestinal: No new onset incontinence, normal bowel movements reported Genitourinary: No new onset incontinence Musculoskeletal: Right knee pain Psychiatric: [Normal mood/affect] Neurological: [Denies weakness in extremities], [denies balance issues] Pain at rest (0-10 scale): 8 Objective Objective:: Physical Exam: General: Alert and oriented x3, no acute distress, pleasant and cooperative Lungs: Respirations even and unlabored, symmetrical chest expansion Eyes: PERRL Musculoskeletal: Flexion and extension of right knee somewhat guarded secondary to pain, [antalgic gait noted] Neurological: Speech clear, no gross sensory deficit Has patient had previous pain injection?: No Conservative treatment options previously tried: Home exercise plan Length of treatment: Longer than 12 weeks Meds Home Medications and Allergies Home Medications ?Medication ?Instructions ?Recorded ?Confirmed ?Type naproxen 500 mg tablet 500 mg PO BID PRN Pain or 11/02/24 01/25/25 Rx inflammation #60 tabs aspirin 81 mg tablet,delayed 81 mg PO DAILY 12/23/24 01/25/25 History release azelastine 137 mcg (0.1 %) nasal 1 spray intranasal BID 12/23/24 01/25/25 History spray codeine 10 mg-guaifenesin 100 mg/5 5 - 10 ml PO Q4-6H 12/23/24 01/25/25 History mL oral liquid fexofenadine 180 mg tablet 180 mg PO HS 12/23/24 01/25/25 History fluticasone 500 mcg-salmeterol 50 1 ea inhalation BID 12/23/24 01/25/25 History mcg/dose blistr powdr for inhalation (Wixela Inhub) levothyroxine 112 mcg tablet 112 mcg PO DAILY 12/23/24 01/25/25 History montelukast 10 mg tablet 10 mg PO HS 12/23/24 01/25/25 History sertraline 50 mg tablet 50 mg PO DAILY 12/23/24 01/25/25 History tamsulosin 0.4 mg capsule 0.4 mg PO DAILY 12/23/24 01/25/25 History trazodone 50 mg tablet 50 mg PO HS 12/23/24 01/25/25 History prednisone 20 mg tablet 40 mg (2 x 20 mg) PO DAILY 7 days 12/27/24 01/25/25 Rx #14 tabs albuterol sulfate 90 mcg/actuation See Rx Instructions .Route 12/28/24 01/25/25 Rx aerosol inhaler .COMPLEX #8.5 grams furosemide 40 mg tablet (Lasix) 40 mg PO DAILY PRN edema #30 tabs 01/02/25 01/25/25 Rx sacubitril 24 mg-valsartan 26 mg 1 tab PO BID #60 tabs 01/02/25 01/25/25 Rx tablet (Entresto) spironolactone 25 mg tablet 25 mg PO DAILY #30 tabs 01/02/25 01/25/25 Rx trazodone 50 mg tablet See Rx Instructions .Route 01/10/25 01/25/25 Rx .COMPLEX #90 tabs finasteride 5 mg tablet See Rx Instructions .Route 01/11/25 01/25/25 Rx .COMPLEX #90 tabs fluticasone 500 mcg-salmeterol 50 1 inh inhalation BID 90 days #60 ea 01/16/25 01/25/25 Rx mcg/dose blistr powdr for inhalation (Wixela Inhub) famotidine 20 mg tablet 20 mg PO HS For GI protection #90 01/18/25 01/25/25 Rx tabs gabapentin 300 mg capsule 300 mg PO DAILY #90 caps 01/18/25 01/25/25 Rx gabapentin 300 mg capsule 600 mg (2 x 300 mg) PO HS #180 caps 01/18/25 01/25/25 Rx empagliflozin 10 mg tablet 10 mg PO DAILY 30 days #30 tabs 01/22/25 01/25/25 Rx (Jardiance) metoprolol succinate 25 mg 25 mg PO DAILY 30 days #30 tabs 01/22/25 01/25/25 Rx tablet,extended release 24 hr pantoprazole 40 mg tablet,delayed 40 mg PO DAILY 30 days #30 tabs 01/22/25 01/25/25 Rx release (Protonix) rivaroxaban 20 mg tablet 20 mg PO QPMWITHMEAL 30 days #30 01/22/25 01/25/25 Rx tabs rosuvastatin 10 mg tablet 10 mg PO DAILY Cholesterol 01/25/25 01/25/25 History New Prescriptions to Start Prescriptions: Allergies Allergy/AdvReac Type Severity Reaction Status Date / Time Sulfa (Sulfonamide Allergy Intermediate Rash Verified 01/24/25 14:17 Antibiotics) Assessment and Plan *Assessment and plan (1) Right knee pain: Status: Acute Category: Medical Code(s): M25.561 - Pain in right knee (2) Right knee DJD: Status: Chronic Category: Medical Code(s): M17.11 - Unilateral primary osteoarthritis, right knee Plan I did go over with the patient regarding the right knee intra-articular injections including risk and benefits. He would like to proceed forward with this plan of care. Patient has tried and failed conservative therapy including continued at home stretching exercise for longer than 12 weeks. Patient was counseled that he would not have to stop his blood thinner for this injection. He was also counseled that if the pain does improve between now and her next visit he can always call and postpone this injection if needed. We will continue to follow-up with him on his MRI scheduling. Patient will be scheduled for a right knee intra-articular injection. This will be done without fluoroscopic or ultrasound guidance. Patient has been instructed to contact the clinic with any concerns before the next appointment. Dr. Thibodeaux has reviewed this note and agrees with this plan of care. This note was dictated using voice recognition software and make contain errors or omissions. All injections are used with Lidocaine, Bupivacaine and Depo Medrol. Occasionally urine drug screen is needed to verify patient's compliance with our office pain contract. This is ordered based off specific treatments related to chronic pain with the potential to abuse certain medications.
[2025-01-25 10:00] VITALS: BP 111/66; PULSE 85; RESP 14; O2SAT 100; BMI 27.8
--- OUTSIDE RECORDS SUMMARY | 2025-01-25 22:57 | XMS_ITS ---
Author Organization Unknown Medications Medication Instructions Effective Dates (start - stop) Status chlorhexidine gluconate 1.2 MG/ML Mouthwash 3542-10-20C26:00:00.000+00:0 0 - Completed levothyroxine sodium 0.112 M G Oral Tablet 0875-85-96E28:00:00.000+00:0 0 - Completed doxycycline hyclate 100 MG O ral Capsule 6395-54-17K06:00:00.000+00:0 0 - Completed levothyroxine sodium 0.112 M G Oral Tablet 9943-06-56U89:00:00.000+00:0 0 - Completed cephalexin 500 MG Oral Capsule 145-09-47Y32:00:00.000+00:0 0 - Completed levothyroxine sodium 0.112 M G Oral Tablet 4835-52-27S75:00:00.000+00:0 0 - Completed levothyroxine sodium 0.112 M G Oral Tablet 5534-72-05O69:00:00.000+00:0 0 - Completed ondansetron 8 MG Oral Tablet 11-28-29:00:00.000+00:0 0 - Completed cefdinir 300 MG Oral Capsule 11-27-27:00:00.000+00:0 0 - Completed valsartan 160 MG Oral Tablet 12-17-05:00:00.000+00:0 0 - Completed amoxicillin 500 MG Oral Capsule 0774-60-47V95:00:00.000+00:0 0 - Completed finasteride 5 MG Oral Tablet 12-19-04:00:00.000+00:0 0 - Completed gabapentin 300 MG Oral Capsule 2 136-64-18D33:00:00.000+00:0 0 - Completed gabapentin 300 MG Oral Capsule 2 777-24-82F60:00:00.000+00:0 0 - Completed mupirocin 0.02 MG/MG Topical Ointment 6791-51-82A12:00:00.000+00:0 0 - Completed gabapentin 300 MG Oral Capsule 997-70-51L02:00:00.000+00:0 0 - Completed finasteride 5 MG Oral Tablet 11-29-26:00:00.000+00:0 0 - Completed montelukast 10 MG Oral Tablet 09-11-02:00:00.000+00:0 0 - Completed montelukast 10 MG Oral Tablet 07-02-06:00:00.000+00:0 0 - Completed sertraline 50 MG Oral Tablet 12-17-05:00:00.000+00:0 0 - Completed montelukast 10 MG Oral Tablet 09-05-06:00:00.000+00:0 0 - Completed finasteride 5 MG Oral Tablet 11-26-25:00:00.000+00:0 0 - Completed finasteride 5 MG Oral Tablet 12-22-04:00:00.000+00:0 0 - Completed sertraline 50 MG Oral Tablet 12-20-04:00:00.000+00:0 0 - Completed rosuvastatin calcium 10 MG O ral Tablet 2117-14-87H86:00:00.000+00:0 0 - Completed sertraline 50 MG Oral Tablet 11-28-07:00:00.000+00:0 0 - Completed rosuvastatin calcium 10 MG O ral Tablet 0276-61-11L32:00:00.000+00:0 0 - Completed rosuvastatin calcium 10 MG O ral Tablet 7774-02-98N04:00:00.000+00:0 0 - Completed montelukast 10 MG Oral Tablet 09-07-26:00:00.000+00:0 0 - Completed gabapentin 300 MG Oral Capsule 632-03-16Z16:00:00.000+00:0 0 - Completed gabapentin 300 MG Oral Capsule 075-58-47B94:00:00.000+00:0 0 - Completed cephalexin 500 MG Oral Capsule 557-93-60V02:00:00.000+00:0 0 - Completed montelukast 10 MG Oral Tablet 08-06-06:00:00.000+00:0 0 - Completed rosuvastatin calcium 10 MG O ral Tablet 8206-61-07A48:00:00.000+00:0 0 - Completed azithromycin 500 MG Oral Tablet 9989-83-81Y57:00:00.000+00:0 0 - Completed ondansetron 4 MG Disintegrat ing Oral Tablet 6716-91-19M93:00:00.000+00:0 0 - Completed tamsulosin hydrochloride 0.4 MG Oral Capsule 6765-20-89B23:00:00.000+00:0 0 - Completed nitrofurantoin, macrocrystal s 50 MG Oral Capsule 3776-54-50G14:00:00.000+00:0 0 - Completed valsartan 160 MG Oral Tablet 11-28-07:00:00.000+00:0 0 - Completed trazodone hydrochloride 50 M G Oral Tablet 6471-49-85H22:00:00.000+00:0 0 - Completed nitrofurantoin, macrocrystal s 50 MG Oral Capsule 6256-39-91N57:00:00.000+00:0 0 - Completed tamsulosin hydrochloride 0.4 MG Oral Capsule 2153-79-71X62:00:00.000+00:0 0 - Completed nitrofurantoin, macrocrystal s 50 MG Oral Capsule 0175-10-79H89:00:00.000+00:0 0 - Completed sertraline 50 MG Oral Tablet 11-25-07:00:00.000+00:0 0 - Completed 24 HR diltiazem hydrochlorid e 240 MG Extended Release Oral Capsule 5314-34-68G58:00:00.0 00+00:0 0 - Completed 24 HR diltiazem hydrochlorid e 240 MG Extended Release Oral Capsule 0460-15-33S38:00:00.0 00+00:0 0 - Completed tamsulosin hydrochloride 0.4 MG Oral Capsule 4153-34-46H00:00:00.000+00:0 0 - Completed 24 HR diltiazem hydrochlorid e 240 MG Extended Release Oral Capsule 8002-53-41A93:00:00.0 00+00:0 0 - Completed trazodone hydrochloride 50 M G Oral Tablet [id number]:00:00.000+00:0 0 - Completed 24 HR diltiazem hydrochlorid e 240 MG Extended Release Oral Capsule 3934-66-84E44:00:00.0 00+00:0 0 - Completed tamsulosin hydrochloride 0.4 MG Oral Capsule 2768-76-44H44:00:00.000+00:0 0 - Completed valsartan 160 MG Oral Tablet 12-20-04:00:00.000+00:0 0 - Completed levofloxacin 500 MG Oral Tablet 8476-34-28Q06:00:00.000+00:0 0 - Completed nitrofurantoin, macrocrystal s 50 MG Oral Capsule 0453-62-38K85:00:00.000+00:0 0 - Completed trazodone hydrochloride 50 M G Oral Tablet [id number]:00:00.000+00:0 0 - Completed valsartan 160 MG Oral Tablet 11-25-07:00:00.000+00:0 0 - Completed 60 ACTUAT fluticasone propio madina 0.5 MG/ACTUAT / salmeterol 0.05 MG/ACTUAT Dry Powder Inhaler [Advair] 2623-30-90J38:00:00.000+00:0 0 - Completed 30 ACTUAT fluticasone furoat e 0.2 MG/ACTUAT / vilanterol 0.025 MG/ACTUAT Dry Powder Inhaler [Breo] 6136-24-14H63:00:00.000+00:0 0 - Completed 30 ACTUAT fluticasone furoat e 0.2 MG/ACTUAT / vilanterol 0.025 MG/ACTUAT Dry Powder Inhaler [Breo] 0613-71-39P78:00:00.000+00:0 0 - Completed acetaminophen 325 MG / hydro codone bitartrate 5 MG Oral Tablet 1979-53-97C45:00:00.000+00 :0 0 - Completed 30 ACTUAT fluticasone furoat e 0.2 MG/ACTUAT / vilanterol 0.025 MG/ACTUAT Dry Powder Inhaler [Breo] [id number]:00:00.000+00:0 0 - Completed 60 ACTUAT fluticasone propio madina 0.5 MG/ACTUAT / salmeterol 0.05 MG/ACTUAT Dry Powder Inhaler [Advair] 2479-40-06C46:00:00.000+00:0 0 - Completed 60 ACTUAT fluticasone propio madina 0.5 MG/ACTUAT / salmeterol 0.05 MG/ACTUAT Dry Powder Inhaler [Advair] 1088-05-57N64:00:00.000+00:0 0 - Completed 30 ACTUAT fluticasone furoat e 0.2 MG/ACTUAT / vilanterol 0.025 MG/ACTUAT Dry Powder Inhaler [Breo] [id number]:00:00.000+00:0 0 - Completed amoxicillin 875 MG / clavula madina 125 MG Oral Tablet [id number]:00:00.000+00:0 0 - Completed 60 ACTUAT fluticasone propio madina 0.5 MG/ACTUAT / salmeterol 0.05 MG/ACTUAT Dry Powder Inhaler [Advair] [id number]:00:00.000+00:0 0 - Completed 30 ACTUAT fluticasone furoat e 0.2 MG/ACTUAT / vilanterol 0.025 MG/ACTUAT Dry Powder Inhaler [Breo] [id number]:00:00.000+00:0 0 - Completed 60 ACTUAT fluticasone propio madina 0.5 MG/ACTUAT / salmeterol 0.05 MG/ACTUAT Dry Powder Inhaler [Advair] [id number]:00:00.000+00:0 0 - Completed Patient Care team information Name Category Status Period Participants - - Proposed period not known -
== END 2025-01-25 23:59 | disposition home or self-care (01) ==
LOC: SC.PAIN 08:51
PROVIDERS: PCP Internal Medicine; Visit Provider Nurse Practitioner Family
DX: M25.561 Pain in right knee (principal); M17.11 Unilateral primary osteoarthritis, right knee; Z73.89 Other problems related to life management difficulty
CPT/HCPCS: 99212; G0463

== ENCOUNTER 2025-01-30 08:09 | Day surgery (SDC) | payer BC, MEDICARE, SELFPAY ==
[2025-01-30 08:23] VITALS: BP 109/69; PULSE 89; RESP 16; TEMP 37; O2SAT 97; BMI 27.8
[2025-01-30] MEDS: LIDOCAINE 1% 5ML PF VIAL 5 ML (09:00)
[2025-01-30] MEDS: BUPIVACAINE 0.25% 10ML INJ 25 MG IJ (09:00)
[2025-01-30] MEDS: methylPREDNISolone ACETATE 80MG/ML VIAL 80 MG (09:00)
[2025-01-30 09:01] VITALS: BP 106/66; PULSE 82; RESP 18; O2SAT 95
--- NOTE | 2025-01-30 09:09 | EXP.PAIN.PRO ---
Procedure Date: 01/30/25 Time: 08:55 Anesthesiologist:: Ren Pierre CRNA Complications:: None Pre-procedure Diagnosis:: DJD right knee. Chronic right knee pain. Post-procedure Diagnosis:: Same Indications for Procedure:: Patient is a very pleasant 70-year-old male who comes our clinic today for right intra-articular knee injection of cortisone local anesthetic. Patient describes right knee pain as constant, dull, aching. Patient describes right knee pain increases with flexion and extension. Increases with ambulation. He rates his pain 8/10. Procedure Details:: Details of the procedure explained to the patient. The patient taken procedure room placed in the sitting position. The over the right knee was cleaned using chlorhexidine as a cleansing solution. Using a 22-gauge inch and half needle the right knee joint was accessed from the anterior lateral position. After negative aspiration 4 cc of 1% lidocaine +4 cc of 0.25% Marcaine and 40 mg of Depo-Medrol was injected. Patient tolerated procedure without difficulty. There are no complications. Plan and Disposition:: Patient was discharged without incident.
[2025-01-30 09:10] VITALS: BP 112/68; PULSE 80; RESP 16; O2SAT 99
[2025-01-30 09:12] VITALS: BP 106/66; PULSE 82; RESP 18; O2SAT 95
== END 2025-01-30 09:10 | disposition home or self-care (01) ==
PROVIDERS: PCP Internal Medicine; Visit Provider Nurse Anesthetist, Certified Registered
DX: M17.11 Unilateral primary osteoarthritis, right knee (principal); M25.561 Pain in right knee; G89.29 Other chronic pain
CPT/HCPCS: 20610; J1010

== ENCOUNTER 2025-02-12 08:56 | Outpatient (POV) | payer BC, MEDICARE, SELFPAY ==
--- OUTSIDE RECORDS SUMMARY | 2025-02-12 08:58 | XMS_ITS | Data Portability ---
Author Organization [facility] and [facility] Address [address] [place] [address] Assessment No assessment recorded. Plan of Treatment Reminders Order Date Submit Date Provider Last Modified By Organization Details Last Modified Time Details Appointments OV EST 15 025 09:15AM Carlito Gould Jr, MD Not available Not available Not available Lab None record ed. Referral None record ed. Procedures None record ed. Surgeries None record ed. Imaging None record ed. Medication Orders None record ed. Patient TargetsNo targets recorded. Patient InstructionsNo instructions recorded. Reason for Referral None Reported. Results Created Date Observation Date Name Description Value Unit Range Abnormal Flag Note LastModifiedBy Organization Detail LastModifiedTime 09/08/20 22 09/08/2022 TOTAL PROTE IN CSF total protein CSF 64 mg/dL 15-45 high Not Available [facility] (Lab Registration) [address], [place], [address], 09/08/2022 13:00:50 09/08/20 22 09/08/2022 TOTAL PROTE IN CSF note Unles s other peace noted testi ng perfo rmed at: [facility] [address] [place] [address] [phone] Otis pace MD CLIA: [id number] Not Available [facility] (Lab Registration) [place], [address], 09/08/2022 13:00:50 09/08/20 22 09/08/2022 GLUCO SE CSF QUANT glucose CSF quant 69 mg/dL 40-75 Not Available [facility] (Lab Registration) [address] [place], [address], 09/08/2022 13:00:51 09/08/20 22 09/08/2022 GLUCO SE CSF QUANT note Unles s other peace noted testi ng perfo rmed at: [facility] [address] [place] [address] [phone] Otis pace MD CLIA: [id number] Not Available [facility] (Lab Registration) [address] [place], [address], 09/08/2022 13:00:51 09/08/20 22 09/08/2022 CELL COUNT CSF CSF tube # TUBE # 3 Not Available [facility] (Lab Registration) [address] [place], [address], 09/08/2022 13:38:05 09/08/2009/08/2022 CELL COUNT CSF CSF color COLORL ESS colorl ess Not Available [facility] (Lab Registration) [address] [place], [address], 09/08/2022 13:38:05 09/08/2009/08/2022 CELL COUNT CSF CSF apperance CLEAR clear Not Available [facility] (Lab Registration) [address] [place], [address], 09/08/2022 13:38:05 09/08/20 22 09/08/2022 CELL COUNT CSF volume 35 mL Not Available [facility] (Lab Registration) [address] [place], [address], 09/08/2022 13:38:05 09/08/2009/08/2022 CELL COUNT CSF CSF WBC count 13 /uL 0-5 high Not Available [facility] (Lab Registration) [address] [place], [address], 09/08/2022 13:38:05 09/08/20 22 09/08/2022 CELL COUNT CSF CSF RBC count 2 /uL 0-1 high Not Available [facility] (Lab Registration) [address] [place], [address], 09/08/2022 13:38:05 09/08/20 22 09/08/2022 CELL COUNT CSF polynuclear 0 % Not Available [facility] (Lab Registration) [address] [place], [address], 09/08/2022 13:38:05 09/08/20 22 09/08/2022 CELL COUNT CSF mononuclear 100 % Not Available [facility] (Lab Registration) [address] [place], [address], 09/08/2022 13:38:05 09/08/2009/08/2022 CELL COUNT CSF note Unles s other peace noted testi ng perfo rmed at: [facility] [address] [place] [address] [phone] Otis pace MD CLIA: [id number] Not Available [facility] (Lab Registration) [address] [place], [address], 09/08/2022 13:38:05 09/08/20 22 09/08/2022 GRAM STAIN BODY FLUID specimen source CSF Not Available [facility] (Lab Registration) [address] [place], [address], 09/08/2022 13:58:51 09/08/2009/08/2022 GRAM STAIN BODY FLUID gram stain organism 1 NONE SEEN Not Available [facility] (Lab Registration) [address] [place], [address], 09/08/2022 13:58:51 09/08/20 22 09/08/2022 GRAM STAIN BODY FLUID note Unles s other peace noted testi ng perfo rmed at: [facility] [address] [place] [address] [phone] Otis pace MD CLIA: [id number] Not Available [facility] (Lab Registration) [address] [place], [address], 09/08/2022 13:58:51 09/08/20 22 09/08/2022 CULTU RE CSF results MRB 09-09 836 No Growt h at Day 1 MRB 09-10 600 No Growt h at Day 2 LT 09-11 534 No Growt h at Day 3 Not Available [facility] (Lab Registration) [address] [place], [address], 09/11/2022 05:35:53 09/08/20 22 09/08/2022 CULTU RE CSF note Unles s other peace noted testi ng perfo rmed at: [facility] [address] [address] [phone] Otis pace MD CLIA: [id number] Not Available [facility] (Lab Registration) [address] [place], [address], 09/11/2022 05:35:53 09/08/20 22 09/08/2022 VDRL CSF QUAL note Unles s other peace noted testi ng perfo rmed at: [facility] [address] [place] [address] [phone] Otis apce MD CLIA: [id number] Not Available [facility] (Lab Registration) [address] [place], [address], 09/12/2022 04:08:24 09/08/2009/12/2022 VDRL CSF QUAL vdrl CSF Not Available [facility] (Lab Registration) [address] [place], [address], 09/12/2022 04:08:24 09/08/20 22 09/08/2022 MULTI PLE SCLER OSIS( MS) PROFI LE note Unles s other peace noted testi ng perfo rmed at: [facility] jamil gonzalez [address] [place] [address] [phone] Otis pace MD CLIA: [id number] Not Available [facility] (Lab Registration) [address] [place], [address], 09/14/2022 15:10:12 09/08/20 22 09/14/2022 MULTI PLE SCLER OSIS( MS) PROFI LE albumin TNP g/dL Test not perfo rmed. No serum gel recei shena. Conta ct: Talisha somers Jasonme ter 09-11 Not Available [facility] (Lab Registration) [address] [place], [address], 09/14/2022 15:10:12 09/08/20 22 09/14/2022 MULTI PLE SCLER OSIS( MS) PROFI LE immunoglobul in g, qn, serum TNP mg/dL Test not perfo rmed. No serum gel recei shena. Conta ct: Dinotrevor na Vanme ter 09-11 SENT TO REFER ENCE LAB Not Available [facility] (Lab Registration) [address] [place], [address], 09/14/2022 15:10:12 09/08/20 22 09/14/2022 MULTI PLE SCLER OSIS( MS) PROFI LE albumin, CSF 28 mg/dL 15-55 Not Available [facility] (Lab Registration) [address] [place], [address], 09/14/2022 15:10:12 09/08/20 22 09/14/2022 MULTI PLE SCLER OSIS( MS) PROFI LE IgG, quant, CSF 2.0 mg/dL 0.0-10 .3 Not Available [facility] (Lab Registration) [address] [place], [address], 09/14/2022 15:10:12 09/08/20 22 09/14/2022 MULTI PLE SCLER OSIS( MS) PROFI LE CSF IgG index TNP Unabl e to calcu late resul t since non-n umeri c resul t obtai glenn for compo nent test. Not Available [facility] (Lab Registration) [address] [place], [address], 09/14/2022 15:10:12 09/08/20 22 09/14/2022 MULTI PLE SCLER OSIS( MS) PROFI LE oligoclonal banding -serum TNP Test not perfo rmed. No serum gel recei shena. Conta ct: Talisha yonis Del Angel ter 09-11 Not Available [facility] (Lab Registration) [address] [place], [address], 09/14/2022 15:10:12 09/08/20 22 09/14/2022 MULTI PLE SCLER OSIS( MS) PROFI LE CSF/serum alb. index TNP Unabl e to calcu late resul t since non-n umeri c resul t obtai glenn for compo nent test. Relat ionsh ip to blood -brai n barri er: Consi stent with an intac t barri er <9 Sligh t impai rment 9 - 14 Moder ate impai rment 14 - 30 Sever e impai rment 30 - 100 Compl ete break down >100 [facility]: [facility] [address] [id number] [facility] Lab Direc tor: Cain patton PhD, Phone : [phone] Not Available [facility] (Lab Registration) [address] [place], [address], 09/14/2022 15:10:12 09/08/20 22 09/14/2022 MULTI PLE SCLER OSIS( MS) PROFI LE IgG/alb ratio, CSF 0.07 0.00-0 .25 Not Available [facility] (Lab Registration) [address] [place], [address], 09/14/2022 15:10:12 09/08/20 22 09/14/2022 MULTI PLE SCLER OSIS( MS) PROFI LE IgG, syn rate, CSF TNP mg/da y Unabl e to calcu late resul t since non-n umeri c resul t obtai glenn for compo nent test. Not Available [facility] (Lab Registration) [address], [place], [address], 09/14/2022 15:10:12 09/08/20 22 09/14/2022 MULTI PLE SCLER OSIS( MS) PROFI LE oligoclonal banding CSF Commen t Zero (0) oligo clona l bands were obser shena in the CSF. . Inter preta tion: Crite stephanie for Posit ivity : Four (4) or more oligo clona l bands obser shena only in the CSF have been shown to be most consi stent with MS using our metho d. Aurora balderas , Maria Teresa lucio EL, Zenaida sanabria BG, and Randell strong JA: Cereb rospi nal Fluid Oligo clona l Bands in the Diagn osis of Multi ple Scler osis. Am J Clin Patho l 120(5 ):672 -675, 2002 . . Oligo clona l bands that are prese nt only in the CSF have been assoc iated with a varie ty of infla mmato ry brain disea ses such as multi ple scler osis (MS), subac ruby encep halit is, neuro syphi lis, etc. Incre ased IgG in the CSF is not speci fic for MS, but is an indic ation of chron ic neura l infla mmati on. Clini jessie corre latio n indic ated. . Appro ximat collin 2-3% of clini duy confi rmed MS patie nts show littl e or no evide nce of oligo clona l bands in the CSF; howev er oligo clona l bands may devel op as the disea se progr esses . . Oligo clona l Anton ng testi ng perfo rmed using Isoel ectri c Focus ing (IEF) and immun oblot ting metho dolog y. Not Available [facility] (Lab Registration) [address], [place], [address], 09/14/2022 15:10:12 09/08/20 22 09/08/2022 ANGIO TENSI N CONVE RT ENZ., CSF note Unles s other peace noted testi ng perfo rmed at: [facility] [address] [place] [address] [phone] Otis pace MD CLIA: [id number] Not Available [facility] (Lab Registration) [address] , [place], [address], 09/14/2022 18:08:47 09/08/20 22 09/14/2022 ANGIO TENSI N CONVE RT ENZ., CSF angiotensin convert enz, CSF <1.5 U/L 0.0-3. 1 Speci men Comme nt: Test( s) 43797 2-SHARON , CSF Speci men Comme nt: resul ts are label ed for resea rch purpo ses only by the Speci men Comme nt: assay 's manuf actur er. The perfo rmanc e hugo acter istic s of Speci men Comme nt: this assay have not been estab lishe d by e [facility] actur er. Speci men Comme nt: The resul t shoul d not be used for treat men t or for Speci men Comme nt: diagn ostic purpo ses witho ut confi rmati on o f the diagn osis Speci men Comme nt: by anoth er medic ally estab lishe d diagn osti c produ ct or Speci men Comme nt: proce dure. The perfo rmanc e naomy cteri stics were deter mined Speci men Comme nt: by [facility]. Perfo rmed at: - [facility] [place] [address] [facility] , [place] [address] Lab Direc tor: Jaelyn maldonado MD, Phone : [phone] Not Available [facility] (Lab Registration) [address], [place], [address], 09/14/2022 18:08:47 09/08/20 22 09/08/2022 LYME, LINE BLOT, CSF note Unles s other peace noted testi ng perfo rmed at: [facility] [address] [place] [address] [phone] Otis pace MD CLIA: [id number] Not Available [facility] (Lab Registration) [address] [place], [address], 09/19/2022 13:09:31 09/08/20 22 09/19/2022 LYME, LINE BLOT, CSF P93 Ab. IgG Absent Not Available [facility] (Lab Registration) [address], [address], 09/19/2022 13:09:31 09/08/20 22 09/19/2022 LYME, LINE BLOT, CSF P66 Ab. IgG Absent Not Available [facility] (Lab Registration) [address] [place], [address], 09/19/2022 13:09:31 09/08/20 22 09/19/2022 LYME, LINE BLOT, CSF P58 Ab. IgG Absent Not Available [facility] (Lab Registration) [address] [place], [address], 09/19/2022 13:09:31 09/08/20 22 09/19/2022 LYME, LINE BLOT, CSF P45 Ab. IgG Absent Not Available [facility] (Lab Registration) [address] [place], [address], 09/19/2022 13:09:31 09/08/20 22 09/19/2022 LYME, LINE BLOT, CSF P41 Ab. IgG Absent Not Available [facility] (Lab Registration) [address] [place], [address], 09/19/2022 13:09:31 09/08/20 22 09/19/2022 LYME, LINE BLOT, CSF P39 Ab. IgG Absent Not Available [facility] (Lab Registration) [address] [place], [address], 09/19/2022 13:09:31 09/08/20 22 09/19/2022 LYME, LINE BLOT, CSF P30 Ab. IgG Absent Not Available [facility] (Lab Registration) [address] [place], [address], 09/19/2022 13:09:31 09/08/20 22 09/19/2022 LYME, LINE BLOT, CSF P28 Ab. IgG Absent Not Available [facility] (Lab Registration) [address] [place], [address], 09/19/2022 13:09:31 09/08/20 22 09/19/2022 LYME, LINE BLOT, CSF P23 Ab. IgG Absent Not Available [facility] (Lab Registration) [address] [place], [address], 09/19/2022 13:09:31 09/08/20 22 09/19/2022 LYME, LINE BLOT, CSF P18 Ab. IgG Absent Not Available [facility] (Lab Registration) [address] [place], [address], 09/19/2022 13:09:31 09/08/20 22 09/19/2022 LYME, LINE BLOT, CSF lyme IgG line blot interp. Negati ve Posit zuri: 5 of the follo wing bands : Borre be-s pecif ic bands : P18,2 3,28, 30,39 ,41,4 5,58, 66, and 93. Negat zuri: No bands or anton ng patte rns which do not meet posit zuri crite stephanie. . Note: For inves tigat ional use only. Not Available [facility] (Lab Registration) [address] [place], [address], 09/19/2022 13:09:31 09/08/20 22 09/19/2022 LYME, LINE BLOT, CSF P41 Ab. IgM Absent Not Available [facility] (Lab Registration) [address], [place], [address], 09/19/2022 13:09:31 09/08/20 22 09/19/2022 LYME, LINE BLOT, CSF P39 Ab. IgM Absent Not Available [facility] (Lab Registration) [address] [place], [address], 09/19/2022 13:09:31 09/08/20 22 09/19/2022 LYME, LINE BLOT, CSF P23 Ab. IgM Absent Not Available [facility] (Lab Registration) [address] [place], [address], 09/19/2022 13:09:31 09/08/20 22 09/19/2022 LYME, LINE BLOT, CSF lyme IgM lineblot interp. Negati ve Note: An equiv ocal or posit zuri EIA resul t follo wed by a negat zuri Line Blot resul t is consi dered NEGAT ZURI. An equiv ocal or posit zuri EIA resul t follo wed by a posit zuri Line Blot is consi dered POSIT ZURI by the CDC. . Posit zuri: 2 of the follo wing bands : 23,39 or 41 Negat zuri: No bands or anton ng patte rns which do not meet posit zuri crite stephanie. Crite stephanie for posit ivity are those recom kaylah d by CDC/A STPHL D. p23=O sp C, p41=f ad mercado Crite stephanie for posit ivity are those recom kaylah d by CDC/A STPHL D. p23=O sp C, p41=f ad mercado Perfo rmed at: [facility] - [facility] [place] [address] [facility] , [place] [address] Lab Direc tor: Jaelyn maldonado MD, Phone : [phone] Not Available [facility] (Lab Registration) [address] [place], [address], 09/19/2022 13:09:31 09/08/20 22 09/08/2022 CULTU RE VIRUS CP note Unles s other peace noted testi ng [facility] [address] [place] [address] [phone] Otis pace MD CLIA: [id number] Not Available [facility] (Lab Registration) [address], [place], [address], 09/21/2022 09:09:43 09/08/20 22 09/21/2022 CULTU RE VIRUS CP culvircp No virus isolat ed. Perfo rmed at: [facility] [place] [address] [place] [address] Lab Direc tor: Jaelyn maldonado MD, Phone : [phone] Not Available [facility] (Lab Registration) [address], [place], [address], 09/21/2022 09:09:43 09/08/20 22 09/08/2022 CRYPT OCOCC US ANTIG EN, CSF note Unles s other peace noted testi ng perfo [facility]med at: [facility] [address] [place] [address] [phone] Otis pace MD CLIA: [id number] Not Available [facility] (Lab Registration) [address], [place], [address], 09/22/2022 15:13:21 09/08/20 22 09/22/2022 CRYPT OCOCC US ANTIG EN, CSF cryptococcus antigen, CSF Negati ve negati ve SENT TO REFER ENCE LAB Not Available [facility] (Lab Registration) [address], [place], [address], 09/22/2022 15:13:21 09/08/20 22 09/22/2022 CRYPT OCOCC US ANTIG EN, CSF cap mandated reflex to culture Not Indica ludin Perfo rmed at: [facility] [place] [address] , [place] [address] Lab Direc tor: Jaelyn maldonado MD, Phone : [phone] Not Available [facility] (Lab Registration) [address] [place], [address], 09/22/2022 15:13:21 09/08/20 22 09/08/2022 lumba r punct ure diagn [facility] [address] [place] [address] Phone: Fax: Name: CARLITA RAM Exam Date: 2021 : [birth year] Age 67 Gender : M Access ion: [id number] Physic earnest: SAIMA MURPHY Facili ty: [facility] Facili ty HSV: Outpat ient Exam: LUMBAR PUNCTU RE DIAGNS TC LUMBAR PUNCTU RE AND FLUORO SCOPY HISTOR Y: Normal pressu re hydroc ephalu s, abnorm al gait. ATTEND ING PHYSIC EARNEST: Dr. Romelia Alvarez PHYSIC EARNEST ASSIST ANT: Samantha Torres PA-C. PROCED URE: After inform ed consen t was obtain ed and time out proced ure perfor med, the patien t was placed in the prone positi on in the fluoro scopic suite. The L4-L5 level of the lumbar spine was locali zed under fluoro scopic guidan ce and marked on the skin approp riatel y. The patien t was then preppe d and draped in the usual steril e fashio n and the skin was anesth etized with 1% Lidoca ine withou t epinep hrine. A lumbar punctu re was then perfor med under direct fluoro scopic guidan ce at the L4-L5 level using a 20-gau ge 3 1/2'' needle . The patien t was subseq uently rolled into the left latera l decubi tus positi on and openin g pressu re was measur ed at 15 cm of water. Approx imatel y 36 ml of clear cerebr jerrell l fluid was remove d. The patien t tolera ludin the proced ure well and there were no immedi ate compli cation s. A single image was perfor med. FLUORO SCOPY TIME: 19.1 second s. IMPRES CARRI: Lumbar punctu re under direct fluoro scopic guidan ce at the L4-L5 level. Openin g pressu re was measur ed at 15 cm of water and 36 ml of clear CSF was remove d. The films were review ed, interp reted, and dictat ed by Dr. Romelia Alvarez Transc ribed by Samantha Torres PA-C Dictat ed By: LESLEY ALVAREZ Transc ribed By: LESLEY ALVAREZ Transc ribed On: 2021 1:22 PM Electr onical ly signed by: LESLEY ALVAREZ 2021 Thank you for referr CARLITA Carver to [facility]. Legall y authen ticate d by ANTONIO SUTTON 2021-10 13:22: 26 CC'ed Logic: Orderi ng Provid er: KATHERINE COVINGTON CC Provid er: ROSELYN OBANDO Attend ing Provid er: KATHERINE SAIMA Referr ing Provid er: KATHERINE COVINGTON Admitt ing Provid er: KATHERINE SAIMA [email or web address] [facility] (Radiology) [facility] [place], [address], 09/09/2022 08:46:52 09/08/20 22 09/08/2022 lumba r punct ure (PROC ) No observ ation record ed. [email or web address] [facility]iology) [facility] [place], [address], 09/08/2022 13:31:57 09/16/20 22 09/08/2022 fluor o guide needl e place ment [facility] [place] [address] Phone: Fax: Name: CARLITA RAM Exam Date: 2021 : [birth year] Age 67 Gender : M Access ion: [id number] Physic earnest: SAIMA MURPHY Facili ty: [facility] Facili ty HSV: Outpat ient Exam: FLUORO GUIDE NEEDLE PLACEM ENT LUMBAR PUNCTU RE AND FLUORO SCOPY HISTOR Y: Normal pressu re hydroc ephalu s, abnorm al gait. ATTEND ING PHYSIC EARNEST: Dr. Romelia Alvarez PHYSIC EARNEST ASSIST ANT: Samantha Torres PA-C. PROCED URE: After inform ed consen t was obtain ed and time out proced ure perfor med, the patien t was placed in the prone positi on in the fluoro scopic suite. The L4-L5 level of the lumbar spine was locali zed under fluoro scopic guidan ce and marked on the skin approp riatel y. The patien t was then preppe d and draped in the usual steril e fashio n and the skin was anesth etized with 1% Lidoca ine withou t epinep hrine. A lumbar punctu re was then perfor med under direct fluoro scopic guidan ce at the L4-L5 level using a 20-gau ge 3 1/2'' needle . The patien t was subseq uently rolled into the left latera l decubi tus positi on and openin g pressu re was measur ed at 15 cm of water. Approx imatel y 36 ml of clear cerebr jerrell l fluid was remove d. The patien t tolera ludin the proced ure well and there were no immedi ate compli cation s. A single image was perfor med. FLUORO SCOPY TIME: 19.1 second s. IMPRES CARRI: Lumbar punctu re under direct fluoro scopic guidan ce at the L4-L5 level. Openin g pressu re was measur ed at 15 cm of water and 36 ml of clear CSF was remove d. The films were review ed, interp reted, and dictat ed by Dr. Romelia Alvarez Transc ribed by Samantha Torres PA-C Dictat ed By: Romelia Martinez Transc ribed By: DEBRA NAVA Transc ribed On: 2021 11:55 AM Electr onical ly signed by: LESLEY ALVAREZ 2021 Thank you for referr CAR[facility]ITA [facility]ver to [facility] Legall y authen ticate d by ANTONIO SUTTON 2021-10 07:15: 43 CC'ed Logic: Orderi ng Provid er: KATHERINE SAIMA CC Provid er: ROSELYN OBANDO Attend ing Provid er: KATHERINE SAIMA Referr ing Provid er: KATHERINE SAIMA Admitt ing Provid er: KATHERINE SAIMA r[address] (Radiology) [address] [place], [address], 09/16/2022 08:35:51 09/16/2009/08/2022 lumba r punct ure (PROC ) No observ ation record ed. [address] Centralized Scheduling [address] [place], [address], 09/16/2022 08:35:27 Result Notes None recorded. Procedures Surgical History Date Name Laterality Status Provider Name and Address Organization Details Recorded Time prostatectomy completed Joycealexandria [place] [facility] - [facility] 09/09/2022 09:14:22 Cholecystectomy completed Joycealexandria [place] - [facility] - [facility] 09/09/2022 09:14:30 open stone operation on kidney or renal pelvis completed Joycealexandria [place] - [facility] - [facility] [place] 09/09/2022 09:14:41 procedure on eye completed Joycealexandria [place] - [facility] - [facility] 09/09/2022 09:15:06 Back Surgery completed Joycealexandria [place] - [facility] - [facility] 09/09/2022 09:15:12 procedure on upper arm completed Joyce [place] [facility] [place] 09/09/2022 09:15:32 procedure on lower leg completed Joycealexandria [place] [facility] 09/09/2022 09:15:41 Imaging Results Imaging Date Name Status LastModified by Organiz ation Details LastModified Time 09/08/2022 lumbar puncture diagnstc completed [address] (Radiology) [address] [place], [address], 09/09/2022 08:46:52 09/08/2022 lumbar puncture (PROC) completed [address] [place] [address] (Radiology) [address] [place], [address], 09/08/2022 13:31:57 09/08/2022 fluoro guide needle placement completed [address] (Radiology) [address] [place], [address], 09/16/2022 08:35:51 09/08/2022 lumbar puncture (PROC) completed [address] Centralized Scheduling [address] [place], [address], 09/16/2022 08:35:27 Procedure Notes None recorded. Medical Equipment None Reported. Allergies Allergen ID Allergen Name Allergen Category Reaction Reaction Severity Criticality Documentation Date Start Date Code Code System Note Provider Name and Address Organization Details Recorded Time 51278 Substance with sulfonami de structure and antibacte rial mechanism of action (substanc e) medicatio n Not available Not available Not available 09/09/2022 21297 8003 SNOMED Joyce Simba [facility] [place] 09:13:10 Medications Name Sig Start Date Stop Date Status Note LastModified by Organization Details LastModified Time amoxicillin 500 mg capsule TAKE 1 CAPSULE BY MOUTH THREE TIMES A DAY active Not Available Not Available No t Available fluticasone propionate 50 mcg/actuati on blister powder for inhalation Inhale 2 puffs twice a day by inhalatio n route. 07/14 completed Not Available Not Available Not Available nystatin 100,000 unit/mL oral suspension TAKE 5 ML 4 TIMES A DAY BY ORAL ROUTE FOR 10 DAYS, FOR THRUSH. active Not Available Not Available No t Available prednisone 10 mg tablet take 4 tablets by mouth once daily in the morning for 5 days, then take 3 tablets each morning for 2 days, then take 2 tablets each morning for 2 days, then take 1 tablet each morning for 2 days, then stop --take with food-- active Not Available Not Available No t Available nitrofurant oin macrocrysta l 50 mg capsule TAKE 1 CAPSULE EVERY DAY active Not Available Not Available No t Available doxycycline hyclate 100 mg capsule TAKE ONE CAPSULE BY MOUTH TWICE DAILY FOR 10 DAYS -- FINISH ALL MEDICINE -- 07/14 completed Not Available Not Available Not Available cefuroxime axetil 250 mg tablet TAKE 1 TABLET (250 MG) BY ORAL ROUTE 2 TIMES PER DAY X 1 WEEK 09/09 completed Not Available Not Available Not Available trazodone 50 mg tablet TAKE 1 TABLET BY MOUTH NIGHTLY AT BEDTIME active Not Available Not Available No t Available azithromyci n 250 mg tablet TAKE 2 TABLETS BY MOUTH ON DAY 1, THEN TAKE 1 TABLET DAILY ON DAYS 2-5 -- FINISH ALL MEDICINE -- active Not Available Not Available No t Available cephalexin 250 mg capsule TAKE 1 CAPSULE BY MOUTH EVERY DAY AT BEDTIME FOR UTI PREVENTIO N active Not Available Not Available No t Available hydrocodone 5 mg-acetamin ophen 325 mg tablet TAKE 1 TABLET BY MOUTH EVERY 4 HOURS NEEDED FOR PAIN active Not Available Not Available No t Available ondansetron HCl 8 mg tablet TAKE 1 TABLET BY MOUTH EVERY 6 HOURS NEEDED 07/12 completed Not Available Not Available Not Available diltiazem CD 240 mg capsule,ext ended release 24 hr TAKE 1 CAPSULE BY MOUTH EVERY DAY active Not Available Not Available No t Available fexofenadin e 180 mg tablet TAKE 1 TABLET BY MOUTH EVERY DAY active Not Available Not Available No t Available ciprofloxac in 500 mg tablet TAKE 1 TABLET BY MOUTH EVERY 12 HOURS FOR 10 DAYS active Not Available Not Available No t Available meloxicam 7.5 mg tablet Take 1 tablet every day by oral route. 07/14 completed Not Available Not Available Not Available tamsulosin 0.4 mg capsule TAKE 1 CAPSULE BY MOUTH AT BEDTIME active Not Available Not Available No t Available cephalexin 500 mg capsule TAKE 1 CAPSULE BY MOUTH FOUR TIMES A DAY FOR 10 DAYS 07/14 completed Not Available Not Available Not Available gabapentin 300 mg capsule TAKE 1 CAPSULE BY MOUTH EVERY MORNING & 2 CAPSULES EVERY EVENING FOR PAIN active Not Available Not Available No t Available montelukast 10 mg tablet TAKE 1 TABLET BY MOUTH EVERY DAY FOR 90 DAYS active Not Available Not Available No t Available codeine 10 mg-guaifene sin 100 mg/5 mL oral liquid TAKE 5 TO 10 ML (1 TO 2 TEASPOONS FUL) BY MOUTH EVERY 4 TO 6 HOURS NEEDED FOR COLD SYMPTOMS/ COLD active Not Available Not Available No t Available mupirocin 2 % topical ointment APPLY TO AFFECTED AREA THREE TIMES A DAY 07/14 completed Not Available Not Available Not Available azelastine 137 mcg (0.1 %) nasal spray SPRAY 1 SPRAY INTO EACH NOSTRIL TWICE A DAY NEEDED FOR ALLERGIES 07/14 completed Not Available Not Available Not Available ibuprofen 600 mg tablet TAKE 1 TABLET BY MOUTH EVERY 6 HOURS NEEDED FOR PAIN active Not Available Not Available No t Available levofloxaci n 500 mg tablet TAKE 1 TABLET BY MOUTH EVERY DAY FOR 10 DAYS 07/12 completed Not Available Not Available Not Available levofloxaci n 750 mg tablet TAKE 1 TABLET BY MOUTH DAILY FOR 5 DAYS active Not Available Not Available No t Available methylpredn isolone 4 mg tablets in a dose pack TAKE DIRECTED ON PACKAGE active Not Available Not Available No t Available albuterol sulfate HFA 90 mcg/actuati on aerosol inhaler INHALE TWO PUFFS BY MOUTH EVERY 6 HOURS NEEDED active Not Available Not Available No t Available ondansetron 4 mg disintegrat ing tablet TAKE 1 TABLET BY MOUTH EVERY 8 HOURS IF NEEDED FOR NAUSEA OR VOMITING FOR UP TO 7 DAYS. 07/14 completed Not Available Not Available Not Available cefdinir 300 mg capsule TAKE ONE CAPSULE BY MOUTH EVERY TWELVE HOURS FOR 10 DAYS -- FINISH ALL MEDICINE -- active Not Available Not Available No t Available sertraline 50 mg tablet TAKE 1 TABLET BY MOUTH EVERY DAY active Not Available Not Available No t Available finasteride 5 mg tablet TAKE 1 TABLET BY MOUTH EVERY DAY FOR 90 DAYS active Not Available Not Available No t Available levothyroxi ne 112 mcg tablet TAKE ONE TABLET BY MOUTH EVERY DAY active Not Available Not Available No t Available amoxicillin 875 mg-potassiu m clavulanate 125 mg tablet TAKE 1 TABLET BY MOUTH EVERY 12 HOURS FOR 7 DAYS active Not Available Not Available No t Available magnesium 250 mg (as magnesium oxide) tablet Take by oral route. active Not Available Not Available No t Available valsartan 160 mg tablet TAKE 1 TABLET BY MOUTH EVERY DAY active Not Available Not Available No t Available azithromyci n 500 mg tablet TAKE 1 TABLET BY MOUTH EVERY DAY FOR 5 DAYS 09/09 completed Not Available Not Available Not Available rosuvastati n 10 mg tablet TAKE 1 TABLET BY MOUTH EVERY DAY active Not Available Not Available No t Available fenofibrate 160 mg tablet Take 1 tablet every day by oral route. 07/14 completed Not Available Not Available Not Available chlorhexidi ne gluconate 0.12 % mouthwash RINSE MOUTH WITH 15ML (1 CAPFUL) FOR 30 SECONDS IN MORNING AND EVENING AFTER MEALS, THEN SPIT 07/14 completed Not Available Not Available Not Available aspirin active Not Available Not Avail able Not Available zinc 07/14 completed Not Available Not Available Not Available albuterol sulfate active Not Available Not Available Not Available montelukast active Not Available Not A vailable Not Available promethazin e 07/14 completed Not Available Not Available Not Available Centrum Silver active Not Available Not Available Not Available Keena Allergy active Not Available Not Available Not Available fluticasone furoate 200 mcg-vilante rol 25 mcg/dose inhalation powder Inhale 1 puff every day by inhalatio n route. 07/14 completed Not Available Not Available Not Available Nasal Allergy 55 mcg spray aerosol USE 1-2 SPRAY IN BOTH NOSTRILS ONCE A DAY active Not Available Not Available No t Available Xhance 93 mcg/actuati on breath activated aerosol USE 1 SPRAY IN EACH NOSTRIL TWICE DAILY DIRECTED active Not Available Not Available No t Available Wixela Inhub 500 mcg-50 mcg/dose powder for inhalation INHALE 1 PUFF TWICE A DAY active Not Available Not Available No t Available Vitals Date Recorded Body height Body mass index (BMI) Body weight Body temperature Provider Name and Address Organization Details Last Updated DateTime 07/14/2023 180.34 cm 27.2 kg/m2 17476.51 g 98 [degF] Jennifer Dainel [facility] 07/14/2023 09:49:59 Date Recorded Body height Body mass index (BMI) Body weight Body temperature Provider Name and Address Organization Details Last Updated DateTime 07/26/2024 180.34 cm 27.2 kg/m2 20516.51 g 98 [degF] Librado Hannah [facility] & [place] 07/26/2024 08:59:03 Date Recorded Body height Body mass index (BMI) Body weight Body temperature Oxygen saturation Oxygen saturation in Arterial blood by Pulse oximetry Heart rate Systolic blood pressure Diastolic blood pressure Provider Name and Address Organization Details Last Updated DateTime 11/23/202 2 180.34 cm 30.5 kg/m2 96536.7 3 g 96.4 [degF] 97 % 97 % 85 /min 140 mm[Hg] 70 mm[Hg] Joyce BELTRAN [facility] & [place] 2 09:12:45 Date Recorded Body height Body temperature Oxygen saturation Oxygen saturation in Arterial blood by Pulse oximetry Heart rate Systolic blood pressure Diastolic blood pressure Provider Name and Address Organization Details Last Updated DateTime 2 180.34 cm 96 [degF] 98 % 98 % 92 /min 132 mm[Hg] 78 mm[Hg] Saima Murphy MD [address] [place] [address], [phone], [facility] & [place] 2 08:42:14 Social History None recorded. Functional Status None recorded. Mental Status None recorded. Family History Relationship Description Onset Age of this Age Resolved Age Notes LastModified by Organization Details LastModified Time Father No current problems or disability [email or web address] Not available 09/09 09:14:07 Mother No current problems or disability [email or web address] Not available 09/09 09:14:07 Medical History Condition Response Hyperlipidemia Y Anxiety/Depression Y Arthritis Y Hypertension Y Hypothyroidism Y Past Encounters Encounter ID Performer Location Encounter Start Date Encounter Closed Date Diagnosis/Indication Diagnosis SNOMED-CT Code Diagnosis ICD10 Code Diagnosis Note [id number] MD [facility] [address] [place] [address] [place] [address] 09/09/2022 09:00:27 09/09/2022 10:35:21 Normal pressure hydrocephalus 07653656 G91.2 improvemen t noted after high-volum e spinal tap yesterday, distinct improvemen t in gait and balance as well as overall brightness . Patient himself feels better, I will follow-up with him over the next 2 weeks. In the meantime will send informatio n to Dr. Dionna Koenig at [facility] for further evaluation have also sent spinal fluid for further testing and awaiting results. [id number] MD [facility] [address] [place] [address],[facility] [address] 10/07/2022 08:27:24 10/07/2022 13:13:34 Normal pressure hydrocephalus 63085604 G91.2 Distinct drop-off of gait mobility noted on today's examinatio jamey leahy he seemed to have a 2 week window of improvemen t with gradual drop-off since mostly noted on gait stability and balance but also on some degree of mental brightness . I have recommende d follow-up with Dr.Kara Koenig [facility] and will be sending these records to her. [id number] Carlito Gould Jr, MD [facility] [address] [address] 07/14/2023 09:27:48 07/14/2023 10:28:15 Lower urinary tract symptoms due to benign prostatic hypertrophy 8054634912 9101 N40.1 patient with history of BPH. He underwent a green light laser TURP in [address] Lee. He continues to void well. Continues on tamsulosin and finasterid e as well. We discussed that typically folks can get off of the medication s after TURP. Screening for malignant neoplasm of prostate 985718320 Z12.5 patient's recent PSA was 2.0 in March 2023. Corrected for the finasterid e and this would be 4.0 in his within normal limits for his age. [id number] Carlito Gould Jr, MD [address] [address] 07/26/2024 08:53:34 07/26/2024 09:47:09 Lower urinary tract symptoms due to benign prostatic hypertrophy [id number] 9101 N40.1 patient with history of BPH. He underwent a green light laser TURP [place] [address] Lee. He continues to void well. Continues on tamsulosin and finasterid e as well. We discussed that typically folks can get off of the medication s after TURP. Screening for malignant neoplasm of prostate 630973692 Z12.5 patient's recent PSA was 2.0 in March 2023. Corrected for the finasterid e and this would be 4.0 in his within normal limits for his age. Yearly screening is recommende d. Health Concerns Section Related Observation LastModified by Organization Detai ls LastModified Time None Recorded Concern Status LastModified by Organization Details LastModified Time None Recorded Advance Directives Directive None Recorded Payers Encounter Date Sequence Insurance Name Policy Number Policy [place] Covered Member ID [place] Member ID Guarantor Name 09/09/2022 1 [place] [id number] Carlita T Suleiman II [id number] Carlita T Suleiman 09/09/2022 2 [place] Carlita T Suleiman [id number] Carlita T Suleiman 10/07/2022 1 [place] [id number] Carlita T Suleiman II [id number] Carlita T Suleiman 10/07/2022 2 [place] Carlita T Suleiman [id number] Carlita T Suleiman 07/14/2023 1 [place] [id number] Carlita T Suleiman [id number] Carlita T Suleiman 07/14/2023 2 [place] Carlita T Suleiman [id number] Carlita T Suleiman 07/26/2024 1 [place] [id number] 0 Carlita T Suleiman [id number] Carlita T Suleiman 07/26/2024 2 [place] Carlita T Suleiman [id number] Carlita T Suleiman Notes Date Note Type Note Provider Name and Address Organization Details Recorded Time 09/09/2022 text/html 67-year-old emeterio vega with complex past medical history, I will try to summarize. Patient has history of an L4-5 diskectomy in 2019, and had been doing relatively well. Unfortunately had 2 COVID infections last year that were fairly significant and resulted in significant shortness of breath and hospital stay. 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 There seems to be an increasing difficulty with balance and walking. Patient also complained of increased difficulty with brain fog, difficulty with remembering names and activities. Patient works in the local [employer] department and was complaining of increasing difficulty with keeping up with his work and was actually contemplating potentially resigning. We have gone ahead with a fairly extensive workup including MRI scan of the brain and laboratory studies. Laboratory studies were all unremarkable, but MRI scan was consistent with possible greater than expected enlargement of the ventricles and possible hydrocephalus. Patient had an episode of acute weakness and headache was seen at [facility] where another MRI scan was performed, there it was determined that it was atrophy and not ventriculomegaly. We had subsequently gone ahead with a radionucleotide cisternogram that was consistent with delayed uptake and possible normal pressure hydrocephalus. Patient has subsequently undergone large volume spinal tap, Opening pressure was 15, 40 cc of spinal fluid were successfully removed. Prior to the LP examination revealed a slightly broad-based gait with difficulty with toe and heel walking and inability to tandem walk. 1 hour after the spinal tap patient's gait improved with slightly less broad-based gait, and normal turn and swing, but still some difficulty with tandem walking. Patient returns today less than 24 hours post tap and feels very good. Patient feels that his walking has improved, he feels more energetic and has no complaints at this time. Saima Murphy MD [address] [place] [address], [phone], [facility] & [place] 09/09/2022 10:32:33 10/07/2022 text/html Patient follows up today, it is been slightly over 3 weeks since his high-volume tap, we have gone ahead and examined him immediately after his spinal tap and his gait had improved to the point where he was even able to tandem walk. Over the last several weeks there has been a gradual decline in his overall functioning. Patient feels that his balance is worse as is overall brightness. He has had some difficulty with memory loss and actually even for got his follow-up appointment last week. Patient feels he has more difficulty manipulating his computer and overall feels that there has been a gradual decline since his spinal tap. He denies any headache or focal neurologic deficits. Incontinence has not been as great of an issue. Saima Murphy MD [address] [place], [phone], [facility] & [place] 10/07/2022 09:13:08 07/14/2023 text/html patient is a 68-year-old white male who I previously saw in [place]. He transferred care to [facility] today. He has a history of BPH and underwent a laser TURP in [address] Lee. His preoperative residual was over 500 and postoperatively was 32 cc in 2018. Patient was last seen by myself in October 2021 his postvoid residual at that time was 85 cc. Patient states he is voiding well. He remains on tamsulosin and finasteride. His last PSA was 2.March. Carlito Gould Jr, MD [address] [place] [address] Drive, [address], [place], [phone], [facility] & [place] 07/14/2023 15:54:55 07/26/2024 text/html Patient is a 69-year-old white male with a history of BPH who underwent a laser TURP [place] [address] Lee. Patient returns today for a yearly follow-up. Patient has a history of urinary tract infections and is on Keflex prophylaxis. Patient continues on tamsulosin and finasteride despite the previous TURP.His last PSA was 2.0 In March 2023. Corrected for finasteride would be 4.0. Carlito Gould Jr, MD [address], [address], [place], [phone], [facility] & [place] 08/16/2024 10:12:01
--- OUTSIDE RECORDS SUMMARY | 2025-02-12 08:58 | XMS_ITS | Data Portability ---
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 His bladder emptying is much improved today. We will check a urine culture and contact him with positive though I suspect this is from residual inflammation from his procedure. I will plan on seeing him in 3 months with a PVR. Not available 03/17/2018 09:21:17 06/21/2018 06/21/2018 BPH with lower urinary tract voiding symptoms, improved after greenlight laser vaporization of the prostate. He will discontinue Flomax. I will plan on seeing him in a year for BLAKE, PSA, PVR. Not available 06/21/2018 09:16:14 06/22/2019 06/22/2019 BPH with lower urinary tract voiding symptoms, improved after greenlight laser. He will continue Flomax and finasteride. Assuming his PSA is normal I will see him in a year for BLAKE, PSA and PVR. Possible microscopic hematuria. We will obtain a microscopic urinalysis and contact him if positive. Not available 06/22/2019 09:22:02 06/25/2020 06/25/2020 BPH with stable lower urinary tract voiding symptoms. He will continue Flomax and finasteride. He'll return in a year for BLAKE, PSA and PVR. History of microscopic hematuria. He has no evidence of blood in the urine today. Not available 06/25/2020 09:20:24 Plan of Treatment Reminders Order Date Submit Date Provider Last Modified By Organization Details Last Modified Time Details Appointments None recorded. Lab urinalysis , dipstick 2019 020 [email or web address] Not available 0 09:20:39 urinalysis , dipstick, auto 2018 019 [email or web address] Not available 9 09:22:18 urinalysis , dipstick, auto 2017 018 [email or web address] Not available 8 09:16:23 urinalysis , dipstick, auto 2017 018 [email or web address] Not available 8 09:21:32 culture, urine 2017 018 [facility], [address] [place] [address], [phone], 8 09:59:40 Referral None recorded. Procedures None recorded. Surgeries None recorded. Imaging None recorded. Medication Orders None recorded. Patient TargetsNo targets recorded. Patient Instructions Encounter Date Encounter Id Patient Instructions Last Modified By Organization Details Last Modified Time 06/22/2019 [id number] blood in the urine: care instructions Not available 06/22/2019 09:22:18 06/25/2020 [id number] blood in the urine: care instructions Not available 06/25/2020 09:20:38 Reason for Referral None Reported. Results Created Date Observation Date Name Description Value Unit Range Abnormal Flag Note LastModifiedBy Organization Detail LastModifiedTime 02/22/20 18 02/21/2018 urina lysis , dipst ick, auto Unknown Analyte Yellow Not Available [facility] Surgery Schedule [address] [place] [address], [address], 02/21/2018 15:02:56 02/22/20 18 02/21/2018 urina lysis , dipst ick, auto Unknown Analyte Clear Not Available [facility] Surgery Schedule [address] [place], [address], 02/21/2018 15:02:56 02/22/20 18 02/21/2018 urina lysis , dipst ick, auto Unknown Analyte 1.015 Not Available [facility] Surgery Schedule [address] [place], [address], 02/21/2018 15:02:56 02/22/20 18 02/21/2018 urina lysis , dipst ick, auto Unknown Analyte 6.5 Not Available [facility] Surgery Schedule [address] [place], [address], 02/21/2018 15:02:56 02/22/20 18 02/21/2018 urina lysis , dipst ick, auto Unknown Analyte 25 Kiko/ul Trace Not Available [facility] Surgery Schedule [address] [place], [address], 02/21/2018 15:02:56 02/22/20 18 02/21/2018 urina lysis , dipst ick, auto Unknown Analyte Negati ve Not Available [facility] Surgery Schedule [address] [place], [address], 02/21/2018 15:02:56 02/22/20 18 02/21/2018 urina lysis , dipst ick, auto Unknown Analyte Trace Not Available [facility] Surgery Schedule [address] [place], [address], 02/21/2018 15:02:56 02/22/20 18 02/21/2018 urina lysis , dipst ick, auto Unknown Analyte Normal Not Available [facility] Surgery Schedule [address] [place], [address], 02/21/2018 15:02:56 02/22/20 18 02/21/2018 urina lysis , dipst ick, auto Unknown Analyte Negati ve Not Available [facility] Surgery Schedule [address] [place], [address], 02/21/2018 15:02:56 02/22/20 18 02/21/2018 urina lysis , dipst ick, auto Unknown Analyte 4 mg/dl Not Available [facility] Surgery Schedule [address] [place], [address], 02/21/2018 15:02:56 02/22/20 18 02/21/2018 urina lysis , dipst ick, auto Unknown Analyte 1 mg/dl (+) Not Available [facility] Surgery Schedule [address] [place], [address], 02/21/2018 15:02:56 02/22/20 18 02/21/2018 urina lysis , dipst ick, auto Unknown Analyte 50 Issac/ul Not Available [facility] Surgery Schedule [address] [place] [address], [address], 02/21/2018 15:02:56 02/22/20 18 02/21/2018 urina lysis , dipst ick, auto Unknown Analyte Clean Catch Not Available [facility] Surgery Schedule [address] [place] [address], [address], 02/21/2018 15:02:56 02/22/20 18 02/21/2018 urina lysis , dipst ick, auto Unknown Analyte Automa ludin Not Available [facility] Surgery Schedule [address] [place] [address], [address], 02/21/2018 15:02:56 03/17/20 18 03/17/2018 cultu re, urine results [facility] e: CCUR Colle cted: 03/17 09:09 Site: Corine shena : 03/17 11:26 URINE SCREE N(CUL TURE) FINAL 03/21 11:53 03/21 No growt h day 4. Not Available [facility] [address] [place] [address], [address], 03/21/2018 11:53:16 03/17/20 18 03/17/2018 urina lysis , dipst ick, auto Unknown Analyte Yellow Not Available [facility] [place], [address], 03/17/2018 09:03:16 03/17/20 18 03/17/2018 urina lysis , dipst ick, auto Unknown Analyte Clear Not Available [facility] [address] [place] [address], [address], 03/17/2018 09:03:16 03/17/20 18 03/17/2018 urina lysis , dipst ick, auto Unknown Analyte 1.010 Not Available [facility] [address] [place] [address], [address], 03/17/2018 09:03:16 03/17/20 18 03/17/2018 urina lysis , dipst ick, auto Unknown Analyte 7.0 Not Available [facility] [address], [address], 03/17/2018 09:03:16 03/17/20 18 03/17/2018 urina lysis , dipst ick, auto Unknown Analyte 500 Kiko/ul (++) Not Available [facility] [address], [address], 03/17/2018 09:03:16 03/17/20 18 03/17/2018 urina lysis , dipst ick, auto Unknown Analyte Negati ve Not Available [facility] [address], [address], 03/17/2018 09:03:16 03/17/20 18 03/17/2018 urina lysis , dipst ick, auto Unknown Analyte Negtiv e Not Available [facility] [address], [address], 03/17/2018 09:03:16 03/17/20 18 03/17/2018 urina lysis , dipst ick, auto Unknown Analyte Normal Not Available [facility] [address] [place], [address], 03/17/2018 09:03:16 03/17/20 18 03/17/2018 urina lysis , dipst ick, auto Unknown Analyte Not Available [facility] [place], [address], 03/17/2018 09:03:16 03/17/20 18 03/17/2018 urina lysis , dipst ick, auto Unknown Analyte Negati ve Not Available [facility] [place], [address], 03/17/2018 09:03:16 03/17/20 18 03/17/2018 urina lysis , dipst ick, auto Unknown Analyte Normal Not Available [facility] [place], [address], 03/17/2018 09:03:16 03/17/20 18 03/17/2018 urina lysis , dipst ick, auto Unknown Analyte Negati ve Not Available [facility] [place], [address], 03/17/2018 09:03:16 03/17/20 18 03/17/2018 urina lysis , dipst ick, auto Unknown Analyte 250 Issac/ul Not Available [facility] [address] [place], [address], 03/17/2018 09:03:16 03/17/20 18 03/17/2018 urina lysis , dipst ick, auto Unknown Analyte Clean Catch Not Available [facility] [address] [place], [address], 03/17/2018 09:03:16 03/17/20 18 03/17/2018 urina lysis , dipst ick, auto Unknown Analyte Automa ludin Not Available [facility] [address] [place], [address], 03/17/2018 09:03:16 06/21/20 18 06/21/2018 urina lysis , dipst ick, auto Unknown Analyte Yellow Not Available [facility] [place], [address], 06/21/2018 09:05:06 06/21/20 18 06/21/2018 urina lysis , dipst ick, auto Unknown Analyte Clear Not Available [facility] [address] [place], [address], 06/21/2018 09:05:06 06/21/20 18 06/21/2018 urina lysis , dipst ick, auto Unknown Analyte 1.025 Not Available [facility] [address] [place], [address], 06/21/2018 09:05:06 06/21/20 18 06/21/2018 urina lysis , dipst ick, auto Unknown Analyte 5.0 Not Available [facility] [place], [address], 06/21/2018 09:05:06 06/21/20 18 06/21/2018 urina lysis , dipst ick, auto Unknown Analyte Negati ve Not Available [facility] [address] [place], [address], 06/21/2018 09:05:06 06/21/20 18 06/21/2018 urina lysis , dipst ick, auto Unknown Analyte Negati ve Not Available [facility] [address] [place], [address], 06/21/2018 09:05:06 06/21/20 18 06/21/2018 urina lysis , dipst ick, auto Unknown Analyte Negtiv e Not Available [facility] [address] [place] [address], [address], 06/21/2018 09:05:06 06/21/20 18 06/21/2018 urina lysis , dipst ick, auto Unknown Analyte Normal Not Available [facility] [address] [place], [address], 06/21/2018 09:05:06 06/21/20 18 06/21/2018 urina lysis , dipst ick, auto Unknown Analyte Negati ve Not Available [facility] [address] [place] [address], [address], 06/21/2018 09:05:06 06/21/20 18 06/21/2018 urina lysis , dipst ick, auto Unknown Analyte 1 mg/dl Not Available [facility] [address] [place] [address], [address], 06/21/2018 09:05:06 06/21/20 18 06/21/2018 urina lysis , dipst ick, auto Unknown Analyte 1 mg/dl (+) Not Available [facility] [address] [place] [address], [address], 06/21/2018 09:05:06 06/21/20 18 06/21/2018 urina lysis , dipst ick, auto Unknown Analyte Negati ve Not Available [facility] [address] [place] [address], [address], 06/21/2018 09:05:06 06/21/20 18 06/21/2018 urina lysis , dipst ick, auto Unknown Analyte Clean Catch Not Available [facility] [address] [place] [address], [address], 06/21/2018 09:05:06 06/21/20 18 06/21/2018 urina lysis , dipst ick, auto Unknown Analyte Automa ludin Not Available [facility] [address] [place] [address], [address], 06/21/2018 09:05:06 06/22/20 19 06/22/2019 PSA, serum or plasm a prostate specific antigen 1.01 NG/mL 0.00-4 .50 normal Test metho d is based on WHO-s tanda rdize d calib ratio n using the Elliot Ty E601 kimberly zer. PSA resul ts from diffe rent test metho ds are not inter rosenberg eable . A singl e PSA scree rosie test shoul d not be used as the sole evide nce of the prese nce or absen ce of disea se. Not Available [facility] [address] [place] [address], [address], 06/22/2019 09:44:31 06/22/2006/22/2019 urina lysis , micro scopi c RBC, urine 3-10 0-2/hp f abnormal Not Available [facility] [address] [place] [address], [address], 06/22/2019 11:39:55 06/22/2006/22/2019 urina lysis , micro scopi c squamous epi. cells OCCASI ONAL 0-5/hp f normal Not Available [facility] [address] [place] [address], [address], 06/22/2019 11:39:55 06/22/2006/22/2019 urina lysis , dipst ick, auto Unknown Analyte Yellow Not Available [facility] [address] [place], [address], 06/22/2019 09:08:28 06/22/2006/22/2019 urina lysis , dipst ick, auto Unknown Analyte Clear Not Available [facility] [address] [place], [address], 06/22/2019 09:08:28 06/22/2006/22/2019 urina lysis , dipst ick, auto Unknown Analyte 1.020 Not Available [facility] [address] [place] [address], [address], 06/22/2019 09:08:28 06/22/2006/22/2019 urina lysis , dipst ick, auto Unknown Analyte 5.0 Not Available [facility] [address] [place], [address], 06/22/2019 09:08:28 06/22/2006/22/2019 urina lysis , dipst ick, auto Unknown Analyte Negati ve Not Available [facility] [address] [place] [address], [address], 06/22/2019 09:08:28 06/22/2006/22/2019 urina lysis , dipst ick, auto Unknown Analyte Negati ve Not Available [facility] [address] [place] [address], [address], 06/22/2019 09:08:28 06/22/2006/22/2019 urina lysis , dipst ick, auto Unknown Analyte Negtiv e Not Available [facility] [address] [place] [address], [address], 06/22/2019 09:08:28 06/22/2006/22/2019 urina lysis , dipst ick, auto Unknown Analyte Normal Not Available [facility] [address] [place] [address], [address], 06/22/2019 09:08:28 06/22/2006/22/2019 urina lysis , dipst ick, auto Unknown Analyte Negati ve Not Available [facility] [address] [place] [address], [address], 06/22/2019 09:08:28 06/22/2006/22/2019 urina lysis , dipst ick, auto Unknown Analyte Normal Not Available [facility] [address] [place] [address], [address], 06/22/2019 09:08:28 06/22/2006/22/2019 urina lysis , dipst ick, auto Unknown Analyte Negati ve Not Available [facility] [address] [place], [address], 06/22/2019 09:08:28 06/22/20 19 06/22/2019 urina lysis , dipst ick, auto Unknown Analyte 50 Issac/ul Not Available [facility] [address] [place] [address], [address], 06/22/2019 09:08:28 06/22/20 19 06/22/2019 urina lysis , dipst ick, auto Unknown Analyte Clean Catch Not Available [facility] [address] [place] [address], [address], 06/22/2019 09:08:28 06/22/20 19 06/22/2019 urina lysis , dipst ick, auto Unknown Analyte Automa ludin Not Available [facility] [address], [address], 06/22/2019 09:08:28 06/26/20 19 06/26/2019 creat inine , blood creatinine, fs mg/dL M 0.7-1. 3 F0.6-1 .1 Not Available [facility] [address] [place] [address], [address], 06/26/2019 09:15:52 07/07/20 19 07/07/2019 bun (bloo d urea nitro gen), serum or plasm a blood urea nitrogen 17 mg/dL 6-20 normal Not Available [facility] [address] [place] [address], [address], 07/07/2019 12:34:39 07/07/20 19 07/07/2019 creat inine , serum or plasm a creatinine 1.15 mg/dL 0.70-1 .25 normal Not Available [facility] [address] [place] [address], [address], 07/07/2019 12:34:40 07/19/20 07/19/2019 cytol ogy, non-g yneco logic al, unspe cifie d speci men cytology SEE BELOW Depar tment of Patho logy Medic al Cytol ogy Repor t NAME: CARLITA THRASHER PATH. :NS-1 [id number] Copie s to: SOURC E OF SPECI MEN: URINE , VOIDE D Volum e: 70 mL Fixed : N Blood y: N Clott ed: N Clear : N Other : ORANG E CLOUD Y CLINI JESSIE INFOR MATIO N: BPH HEMAT URIA Diagn osis: Urine , voide d, ThinP rep: Negat jonelle for linda terrazas . CALE CHOPRA MD Sherrie d Out: 07/21 , 15:09 Page 1 of 1 Not Available [facility] [address] [place] [address], [address], 07/21/2019 15:10:54 07/19/20 19 07/19/2019 urina lysis , dipst ick, auto Unknown Analyte Yellow Not Available [facility] Schedule [address] [place] [address], [address], 07/19/2019 13:40:38 07/19/20 19 07/19/2019 urina lysis , dipst ick, auto Unknown Analyte Clear Not Available [facility] Surgery Schedule [address] [place], [address], 07/19/2019 13:40:38 07/19/2007/19/2019 urina lysis , dipst ick, auto Unknown Analyte 1.020 Not Available [facility] Surgery Schedule [address] [place], [address], 07/19/2019 13:40:38 07/19/20 19 07/19/2019 urina lysis , dipst ick, auto Unknown Analyte 5.0 Not Available [facility] Surgery Schedule [address] [place], [address], 07/19/2019 13:40:38 07/19/20 19 07/19/2019 urina lysis , dipst ick, auto Unknown Analyte Negati ve Not Available [facility] Surgery Schedule [address] [place], [address], 07/19/2019 13:40:38 07/19/20 19 07/19/2019 urina lysis , dipst ick, auto Unknown Analyte Negati ve Not Available [facility] Surgery Schedule [address] [place], [address], 07/19/2019 13:40:38 07/19/2007/19/2019 urina lysis , dipst ick, auto Unknown Analyte Negtiv e Not Available [facility] Schedule [address] [place], [address], 07/19/2019 13:40:38 07/19/2007/19/2019 urina lysis , dipst ick, auto Unknown Analyte Normal Not Available [facility] Surgery Schedule [address] [place], [address], 07/19/2019 13:40:38 07/19/2007/19/2019 urina lysis , dipst ick, auto Unknown Analyte Negati ve Not Available [facility] Schedule [address] [place] [address], [address], 07/19/2019 13:40:38 07/19/20 19 07/19/2019 urina lysis , dipst ick, auto Unknown Analyte Normal Not Available [facility] Surgery Schedule [facility] [place], [address], 07/19/2019 13:40:38 07/19/20 19 07/19/2019 urina lysis , dipst ick, auto Unknown Analyte Negati ve Not Available [facility] Schedule [address] [place] [address], [address], 07/19/2019 13:40:38 07/19/20 19 07/19/2019 urina lysis , dipst ick, auto Unknown Analyte 50 Issac/ul Not Available [facility] Schedule [address] [place], [address], 07/19/2019 13:40:38 07/19/20 19 07/19/2019 urina lysis , dipst ick, auto Unknown Analyte Clean Catch Not Available [facility] Schedule [address] [place], [address], 07/19/2019 13:40:38 07/19/20 19 07/19/2019 urina lysis , dipst ick, auto Unknown Analyte Automa ludin Not Available [facility] Schedule [address] [place], [address], 07/19/2019 13:40:38 06/25/2006/25/2020 urina lysis , dipst ick Unknown Analyte Straw Not Available [facility] [address] [place] [address], [address], 06/25/2020 08:58:13 06/25/2006/25/2020 urina lysis , dipst ick Unknown Analyte Clear Not Available [facility] [address] [place] [address], [address], 06/25/2020 08:58:13 06/25/2006/25/2020 urina lysis , dipst ick Unknown Analyte 1.030 Not Available [facility] [address] [place] [address], [address], 06/25/2020 08:58:13 06/25/2006/25/2020 urina lysis , dipst ick Unknown Analyte 1.003 - 1.035 Not Available [facility] [address] [place] [address], [address], 06/25/2020 08:58:13 06/25/2006/25/2020 urina lysis , dipst ick Unknown Analyte 5.0 Not Available [facility] [address] [place] [address], [address], 06/25/2020 08:58:13 06/25/202020 urina lysis , dipst ick Unknown Analyte 5.0 - 8.0 Not Available [facility] [address] [place] [address], [address], 06/25/2020 08:58:13 06/25/2006/25/2020 urina lysis , dipst ick Unknown Analyte Negati ve Not Available [facility] [address], [address], 06/25/2020 08:58:13 06/25/2006/25/2020 urina lysis , dipst ick Unknown Analyte Negati ve Not Available [facility] [address], [address], 06/25/2020 08:58:13 06/25/2006/25/2020 urina lysis , dipst ick Unknown Analyte Negati ve Not Available [address], [address], 06/25/2020 08:58:13 06/25/2006/25/2020 urina lysis , dipst ick Unknown Analyte Negati ve Not Available [address], [address], 06/25/2020 08:58:13 06/25/2006/25/2020 urina lysis , dipst ick Unknown Analyte Negati ve Not Available [facility] [address], [address], 06/25/2020 08:58:13 06/25/2006/25/2020 urina lysis , dipst ick Unknown Analyte Negati ve - Trace Not Available [address], [address], 06/25/2020 08:58:13 06/25/2006/25/2020 urina lysis , dipst ick Unknown Analyte Normal Not Available [facility] [address] [place], [address], 06/25/2020 08:58:13 06/25/2006/25/2020 urina lysis , dipst ick Unknown Analyte Normal Not Available [facility] [address] [place] [address], [address], 06/25/2020 08:58:13 06/25/2006/25/2020 urina lysis , dipst ick Unknown Analyte Negati ve Not Available [facility] [address] [place] [address], [address], 06/25/2020 08:58:13 06/25/2006/25/2020 urina lysis , dipst ick Unknown Analyte Negati ve Not Available [facility] [address] [place] [address], [address], 06/25/2020 08:58:13 06/25/2006/25/2020 urina lysis , dipst ick Unknown Analyte Normal Not Available [facility] [address] [place] [address], [address], 06/25/2020 08:58:13 06/25/2006/25/2020 urina lysis , dipst ick Unknown Analyte Normal - 1mg/dl Not Available [facility] [address] [place] [address], [address], 06/25/2020 08:58:13 06/25/2006/25/2020 urina lysis , dipst ick Unknown Analyte Negati ve Not Available [facility] [address] [place] [address], [address], 06/25/2020 08:58:13 06/25/2006/25/2020 urina lysis , dipst ick Unknown Analyte Negati ve Not Available [facility] [address] [place] [address], [address], 06/25/2020 08:58:13 06/25/20 20 06/25/2020 urina lysis , dipst ick Unknown Analyte Negati ve Not Available [facility] [address], [address], 06/25/2020 08:58:13 06/25/20 20 06/25/2020 urina lysis , dipst ick Unknown Analyte Negati ve Not Available [address], [address], 06/25/2020 08:58:13 06/25/20 20 06/25/2020 urina lysis , dipst ick Unknown Analyte Clean Catch Not Available [address], [address], 06/25/2020 08:58:13 06/25/20 20 06/25/2020 urina lysis , dipst ick Unknown Analyte Visual Not Available [facility] [address], [address], 06/25/2020 08:58:13 07/07/20 19 07/07/2019 CT, abdom en + pelvi s, w/wo contr ast [address] [address] Paticlarisa t Name: CARLITA Ken t : [birth year] 51 Paticlarisa t 4 Orderi [facility] er: LUIS ARMANDO GRANT OR EXAM DATE: 2018 EXAM: CT [facility]CH[facility] QUE: Multip le axial CT images of the abdome n were obtain ed before and in the combin ed nephro graphi c and excret ory phases after a split bolus IV inject ion of Optira [id number] (1 x 100ml bottle [facility] 0019-1 323-11 ). Bowel was marked with water. CT IVP images were create d on a 3D workst ation. COMPAR MARGARITA: None. FINDIN GS ON CT ABDOME N: LOWER THORAX : Lung bases are clear. No obviou s cardia c abnorm ality. URINAR Y TRACT: Both kidney s are normal in locati on, size, shape, outlin e and parenc hymal thickn ess. No stones or calcif icatio ns are seen within the kidney s ureter s or urinar y bladde r. Nephro graphi c phase shows normal parenc hymal enhanc ement bilate rally withou t delay. No focal abnorm ality. Excret ory phase shows adequa te opacif icatio n of collec ting system s and ureter s withou t dilata tion or fillin g defect . Urinar y bladde r is normal in outlin e and wall thickn ess withou t fillin g defect or mass. A divert iculum is seen arisin g from the left side of the urinar y bladde r. OTHER UPPER ABDOMI NAL ORGANS : Gallbl adder is surgic ally absent . Liver, spleen , pancre as, and adrena ls are normal . BOWEL AND MESENT ISSAC: Stomac h, small bowel and colon are normal . No mesent josh lympha denopa thy or perito curry free fluid. RETROP ERITON EUM: Aorta shows athero sclero tic calcif icatio ns with normal aortic calibe r. IVC and branch es are patent and normal . No retrop eriton eal lympha denopa thy. BODY WALL AND MUSCUL OSKELE LISA STRUCT URES: Degene rative change s of the lumbar spine are noted. There is a small umbili jessie hernia contai rosie omenta l fat. FINDIN GS ON CT PELVIS : PELVIC CAVITY : Urinar y bladde r and rectos igmoid are normal . Prosta te is normal in size and shows some calcif icatio ns. Phlebo liths are seen in the pelvis . No pelvic or inguin al lympha denopa thy, mass or fluid. MUSCUL OSKELE LISA STRUCT URES: Normal . COMBIN ED IMPRES CARRI: 1. No CT eviden ce of urinar y tract stone or neopla sm. 2. Urinar y bladde r divert iculum . Interp reted By: Flory Bonilla MD Electr onical ly Signed By: Flory Bonilla MD on 019 1:53 PM [email or web address] [facility] Radiology [facility] [address] [place], [address], 07/10/2019 08:31:12 Result Notes None recorded. Problems Name Problem SNOMED Code Status Onset Date Resolution Date Notes Provider Name and Address Organization Details Recorded Time Mixed conductiv e AND sensorine ural hearing loss 50335624 Active 2015 From Automated Load;Prov ider: Dong Fournier;Yeyo tatus: Active Not Available [facility] 7 06:42:18 Lower urinary tract symptoms due to benign prostatic hypertrop hy 21815170426 101 Active 2014 From Automated Load;Prov ider: Luis Armando Lee;St atus: Active Not Available [facility] 6 07:50:29 Prostate specific antigen above reference range 486551319 Active 2014 From Automated Load;Prov ider: Luis Armando Lee;St atus: Active Not Available [facility] 6 07:50:29 Microscop ic hematuria 956149259 Active 2014 From Automated Load;Prov ider: Luis Armando Lee;St atus: Active Not Available [facility] 6 07:50:29 Acute non-suppu rative serous otitis media 472505795 Active 2015 From Automated Load;Prov ider: Dong Fournier;S tatus: Active Not Available [facility] 6 07:50:29 Conductiv e hearing loss 68541207 Active 2015 From Automated Load;Prov ider: Dong Fournier;S tatus: Active Not Available [facility] 6 07:50:29 Problem Notes None recorded. Procedures Surgical History Date Name Laterality Status Provider Name and Address Organization Details Recorded Time 0 Post Void Residual; Ultrasound completed Gunjan Kapadia [facility] 06/25/2020 09:08:12 9 Cystoscopy - male completed LUIS ARMANDO LEE MD [address] [place], [address], [facility] 07/19/2019 14:20:36 09/05/201 9 Post Void Residual; Ultrasound completed Tahmina [facility] 06/22/2019 09:08:21 8 Post Void Residual; Ultrasound completed Xiomara Garibay [facility] 06/21/2018 09:08:03 8 Post Void Residual; Ultrasound completed Jacquie Kiser [facility] 03/17/2018 09:08:30 8 Uroflowmetry; Complex completed [facility] 02/28/2018 09:30:39 8 Cystoscopy - male completed LUIS ARMANDO LEE MD [address] [place], [address], [facility] 02/21/2018 08:28:57 8 Post Void Residual; Ultrasound completed Lilygarry Parham [facility] 02/01/2018 09:42:56 7 Post Void Residual; Ultrasound completed Tahmina [facility] 08/03/2017 09:02:42 7 EXTRA CORPOREAL SHOCK WAVE LITHOTRIPSY (SURG) completed LUIS ARMANDO LEE MD [address] [place], [address], [facility] 03/22/2017 12:37:31 7 Post Void Residual; Ultrasound completed Bhargavi Ellison [facility] 01/25/2017 11:08:55 6 Post Void Residual; Catheter completed Bhargavi Ellison [facility] 10/15/2016 08:35:18 6 Audiogram completed RODRIGO ARRIOLA [address] [place], [address], [facility] 10/07/2016 10:20:39 Imaging Results Imaging Date Name Status LastModified by Organiz ation Details LastModified Time 07/07/2019 CT, abdomen + pelvis, w/wo contrast completed [email or web address] [facility] Radiology [facility] [address] [place], [address], 07/10/2019 08:31:12 Procedure Notes None recorded. Medical Equipment None Reported. Allergies Allergen ID Allergen Name Allergen Category Reaction Reaction Severity Criticality Documentation Date Start Date Code Code System Note Provider Name and Address Organization Details Recorded Time 046321 Substance with sulfonami de structure and antibacte rial mechanism of action (substanc e) medicatio n Not available Not available Not available 09/11/20162010 61919 8003 SNOMED Comme nt: Creat ed By: Ailyn reynaCre ated Date: 2010 1:02: 38 PM; Not Available [facility] 6 02:54:27 Medications Name Sig Start Date Stop Date Status Note LastModified by Organization Details LastModified Time amoxicill in 500 mg capsule 06/25 completed Not Available Not Available Not Available Soriatane 10 mg capsule active Medicati on Descript ion: acitreti n; Route:or al; refills: 0; Quantity :3 capsule Not Available Not Available Not Available prednison e 10 mg tablet 06/25 completed Not Available Not Available Not Available nitrofura ntoin macrocrys lisa 50 mg capsule active Not Available Not Available Not Available doxycycli ne hyclate 100 mg capsule 06/25 completed Not Available Not Available Not Available ofloxacin 0.3 % eye drops 10/07 completed Not Available Not Available Not Available hydrocodo ne 5 mg-acetam inophen 325 mg tablet 06/25 completed Not Available Not Available Not Available diltiazem CD 240 mg capsule,e xtended release 24 hr 06/25 completed Not Available Not Available Not Available prednison e 20 mg tablet 06/25 completed Not Available Not Available Not Available prednison e 5 mg tablet 06/25 completed Not Available Not Available Not Available promethaz ine 6.25 mg-codein e 10 mg/5 mL syrup active Not Available Not Available Not Available penicilli n V potassium 500 mg tablet 06/25 completed Not Available Not Available Not Available ciproflox acin 500 mg tablet active Not Available Not Available No t Available tramadol 50 mg tablet active Not Available Not Available Not Available Promethaz ine VC-Codein e 6.25 mg-5 mg-10 mg/5 mL oral syrup 06/25 completed Not Available Not Available Not Available meloxicam 7.5 mg tablet 06/25 completed Not Available Not Available Not Available levothyro xine 100 mcg tablet Daily active Not Available Not Available Not Available methotrex ate sodium 2.5 mg tablet active Not Available Not Available Not Available tamsulosi n 0.4 mg capsule Daily active Not Available Not Available Not Available baclofen 10 mg tablet 06/25 completed Not Available Not Available Not Available Diovan 80 mg capsule Daily active Frequenc y: daily;Me dication Descript ion: valsarta n; Dosage:1 ; Route:or al; refills: 0; Quantity :30 capsule Not Available Not Available Not Available gabapenti n 300 mg capsule 06/25 completed Not Available Not Available Not Available diltiazem CD 120 mg capsule,e xtended release 24 hr active Medicati on Descript ion: diltiaze m; Route:or al; refills: 0 Not Available Not Available Not Available folic acid 1 mg tablet 06/25 completed Not Available Not Available Not Available etodolac 400 mg tablet active Not Available Not Available Not Available codeine 10 mg-guaife nesin 100 mg/5 mL oral liquid TAKE 2 TEASPOON S BY MOUTH EVERY 4 6 HOURS NEEDED FOR COUGH active Not Available Not Available No t Available aspirin 81 mg tablet active Medicati on Descript ion: aspirin; Route:or al; refills: 0 Not Available Not Available Not Available mupirocin 2 % topical ointment active Not Available Not Available Not Available gabapenti n 100 mg capsule 06/25 completed Not Available Not Available Not Available ergocalci ferol (vitamin D2) 1,250 mcg (50,000 unit) capsule 06/25 completed Not Available Not Available Not Available levofloxa ni 500 mg tablet active Not Available Not Available No t Available methylpre dnisolone 4 mg tablets in a dose pack active Not Available Not Available Not Available hydrocodo ne 10 mg-chlorp heniramin e 8 mg/5 mL oral susp extend.re l 12hr 10/07 completed Not Available Not Available Not Available cefdinir 300 mg capsule Take 1 capsule every 12 hours by oral route. active Not Available Not Available No t Available sertralin e 50 mg tablet Daily active Not Available Not Available Not Available finasteri de 5 mg tablet active Not Available Not Available Not Available naproxen 500 mg tablet active Not Available Not Available Not Available amoxicill in 875 mg-potass ium clavulana te 125 mg tablet 06/25 completed Not Available Not Available Not Available amoxicill in 500 mg-potass ium clavulana te 125 mg tablet 06/25 completed Not Available Not Available Not Available valsartan 160 mg tablet active Not Available Not Available Not Available Pneumovax -23 25 mcg/0.5 mL injection syringe 06/25 completed Not Available Not Available Not Available azithromy ni 500 mg tablet 10/07 completed Not Available Not Available Not Available rosuvasta tin 10 mg tablet TAKE ONE TABLET BY MOUTH AT BEDTIME active Not Available Not Available No t Available fenofibra te 160 mg tablet active Not Available Not Available Not Available folic acid Daily active Duration : 30 days;Gaudencio quency: daily;Me dication Descript ion: folic acid; Dosage:1 ; refills: 0; Quantity :30 Not Available Not Available Not Available Keena Daily active Duration : 30 days;Gaudencio quency: daily;Me dication Descript ion: fexofena dine; Dosage:1 ; Route:or al; refills: 12; Quantity :30 Not Available Not Available Not Available gabapenti n active Medicati on Descript ion: gabapent in; refills: 0 Not Available Not Available Not Available Fenofibra te 06/25 completed Medicati on Descript ion: fenofibr ate; Route:or al; refills: 0 Not Available Not Available Not Available Taclonex 0.005 %-0.064 % topical ointment active Medicati on Descript ion: betameth asone-ca lcipotri izabela topical; Route:to pical; refills: 0 Not Available Not Available Not Available methotrex ate (bulk) 100 % powder Every week active Frequenc y: Every week;Med ication Descript ion: methotre xate; Dosage:4 ; Route:co mpoundin g; refills: 0 Not Available Not Available Not Available Havrix (PF) 1,440 LIZ unit/mL intramusc ular syringe 06/25 completed Not Available Not Available Not Available Prevnar 13 (PF) 0.5 mL intramusc ular syringe 06/25 completed Not Available Not Available Not Available Suprep Bowel Prep Kit 17.5 gram-3.13 gram-1.6 gram oral solution active Not Available Not Available Not Available Flonase Allergy Relief 50 mcg/actua tion nasal spray,michelet pension Two times a day active Frequenc y: bid;Medi cation Descript ion: fluticas one nasal; Dosage:1 spray; Route:na mara; refills: 0; Quantity :1 spray Not Available Not Available Not Available Shingrix (PF) 50 mcg/0.5 mL intramusc ular suspensio n, kit 06/25 completed Not Available Not Available Not Available Vitals Date Recorded Body height Body mass index (BMI) Body weight Provider Name and Address Organization Details Last Updated DateTime 03/17/2018 180.34 cm 27.2 kg/m2 65015.51 g Jacquie Kiser [facility] 03/17/2018 09:02:58 Date Recorded Body height Body mass index (BMI) Body weight Provider Name and Address Organization Details Last Updated DateTime 06/21/2018 180.34 cm 27.2 kg/m2 65899.51 g Xiomara Garibay [facility] 06/21/2018 09:04:49 Date Recorded Body height Body mass index (BMI) Body weight Body temperature Provider Name and Address Organization Details Last Updated DateTime 06/22/2019 180.34 cm 27.2 kg/m2 76281.51 g 98 [degF] Tahmina Fragoso [facility] 06/22/2019 09:05:56 Date Recorded Body weight Body mass index (BMI) Body height Provider Name and Address Organization Details Last Updated DateTime 06/25/2020 30540.51 g 27.2 kg/m2 180.34 cm Gunjan Kapadia [facility] 06/25/2020 08:56:38 Social History Question Answer Notes LastModified by Organizat ion Details LastModified Time Tobacco Smoking Status Never Smoker Karen bourne [facility] 10/07/2016 09:19:00 What Is Your Level Of Alcohol Consumption? Occasional [email or web address] Information not available 06/25/2020 How Much Tobacco Do You Chew? None [email or web address] Information not available 06/25/2020 Do You Or Have You Ever Used E-cigarettes Or Vape? Never Used Electronic Cigarettes [email or web address] Information not available 06/25/2020 What Was The Date Of Your Most Recent Tobacco Screening? 06/21/2018 [id number] Information not available 12/05/2019 Do You Or Have You Ever Used Smokeless Tobacco? Never Used Smokeless Tobacco [email or web address] Information not available 06/25/2020 How Much Tobacco Do You Smoke? No [email or web address] Information not available 06/25/2020 How Many Years Have You Smoked Tobacco? 0 [email or web address] Information not available 06/25/2020 Sex: Unknown Functional Status None recorded. Mental Status None recorded. Family History Nothing Reported. Medical History Condition Response Hypertension Y High Cholesterol Y Past Encounters Encounter ID Performer Location Encounter Start Date Encounter Closed Date Diagnosis/Indication Diagnosis SNOMED-CT Code Diagnosis ICD10 Code Diagnosis Note [id number] DONG FOURNIER MD [facility] [place] [address] [place] [address] 1 10/07/2016 08:57:35 10/07/2016 12:06:38 Chronic serous otitis media 03705402 H65.[address] and patent. Hearing improved.a udiogram reviewed Acute sinusitis 45226306 J01.90 [id number] RODRIGO ARRIOLA [facility] [address] [place] [address] 1 10/07/2016 09:54:51 10/07/2016 10:21:42 Sensorineural hearing loss of bilateral ears 483126408 H90.3 [id number] LUIS ARMANDO LEE MD UROLOGY [facility] [address] [place] [address] 1 10/15/2016 07:35:58 10/15/2016 09:12:15 Lower urinary tract symptoms due to benign prostatic hypertrophy 4120815804 9101 N40.1 Benign pro static hyperplasia 603191371 N40.1 Microscopic hematuria 19 3426809 R31.21 Incomplete emptying of urinary bladder 964977118 R39.14 [id number] LUIS ARMANDO LEE MD UROLOGY [address] [place] [address] 1 01/25/2017 10:48:50 01/25/2017 12:53:18 Benign prostatic hyperplasia with outflow obstruction 043467928 N40.1 Microscopic hematuria 19 0158512 R31.21 [id number] DONG FOURNIER MD [facility]NT [facility] [address] [place] [address] 1 01/25/2017 10:48:50 01/25/2017 12:53:18 Chronic serous otitis media 16083959 H65.[address] and patent. f/u 6 mo [id number] LUIS ARMANDO LEE MD UROLOGY [address] [place] [address] 1 03/08/2017 07:58:58 03/08/2017 09:23:26 Ureteric stone 95793276 N20.1 [id number] LUIS ARMANDO LEE MD UROLOGY [address] [place] [address] 1 04/01/2017 09:27:16 04/01/2017 10:33:05 Kidney stone 21778569 N20.0 [id number] LUIS ARMANDO LEE MD UROLOGY [address] [place] [address] 1 08/03/2017 08:41:11 08/03/2017 09:54:35 Benign prostatic hyperplasia with outflow obstruction 140712501 N40.1 Incomplete emptying of urinary bladder 197833491 R39.14 History of calculus of kidney 093523176 Z87.148 [id number] DONG FOURNIER MD [facility]NT [facility] [address] [place] [address] 1 08/11/2017 09:03:32 08/11/2017 09:36:45 Chronic serous otitis media 27977206 H65.23 both tubes extruded and tm's look fine. No fluid present. F/U prn [id number] LUIS ARMANDO LEE MD UROLOGY [address] [place] [address] 1 02/01/2018 09:03:07 02/01/2018 10:09:37 Benign prostatic hyperplasia with outflow obstruction 032194162 N40.1 Incomplete emptying of urinary bladder 748982358 R39.14 [id number] LUIS ARMANDO LEE MD SURGERY SCHEDULE [address] [place] [address] 1 02/21/2018 06:32:25 02/21/2018 06:32:56 [id number] LUIS ARMANDO LEE MD UROLOGY [address] [place] [address] 1 02/28/2018 09:08:03 03/01/2018 15:54:44 Lower urinary tract symptoms due to benign prostatic hypertrophy 5988415609 9101 N40.1 [id number] LUIS ARMANDO LEE MD UROLOGY [address] [place] [address] 1 03/17/2018 08:50:49 03/17/2018 09:35:44 Acute urinary tract infection 581426893 N39.0 Benign pro static hyperplasia with outflow obstruction 911221020 N40.1 Incomplete emptying of urinary bladder 718881520 R39.14 [id number] LUIS ARMANDO LEE MD UROLOGY [address] [place] [address] 1 06/21/2018 08:55:40 06/21/2018 09:57:45 Benign prostatic hyperplasia with outflow obstruction 256915086 N40.1 [id number] LUIS ARMANDO LEE MD UROLOGY [address] [place] [address] 1 06/22/2019 08:39:54 06/22/2019 09:24:17 Benign prostatic hyperplasia with outflow obstruction 816443797 N40.1 Blood in urine 15835661 R31.9 [id number] LUIS ARMANDO LEE MD SURGERY SCHEDULE [address] [place] [address] 1 07/19/2019 12:34:50 07/19/2019 12:36:34 [id number] LUIS ARMANDO LEE MD UROLOGY [address] [place] [address] 1 06/25/2020 08:51:24 06/25/2020 10:03:45 Benign prostatic hyperplasia with outflow obstruction 648887194 N40.1 Microscopic hematuria 19 1546931 R31.21 Health Concerns Section Related Observation LastModified by Organization Detai ls LastModified Time None Recorded Concern Status LastModified by Organization Details LastModified Time None Recorded Advance Directives Directive None Recorded Payers Encounter Date Sequence Insurance Name Policy Number Policy [place] Covered Member ID [place] Member ID Guarantor Name 03/17/2018 1 [place] [id number] Carlita Teer II [id number] Carlita Bearden 03/17/2018 2 [place] Carlita Bearden [id number] Carlita Bearden 06/21/2018 1 [place] [id number] Carlita Teer II [id number] Carlita Teer 06/21/2018 2 [place] Carlita Grissom Kinjal [id number] Carlita T Kinjal 06/22/2019 1 [place] [id number] Carlita T Kinjal II [id number] Carlita T Kinjal 06/22/2019 2 [place] Carlita T Kinjal [id number] Carlita T Kinjal 07/19/2019 1 [place] [id number] Carlita T Kinjal II [id number] Carlita T Kinjal 07/19/2019 2 [place] Carlita T Kinjal [id number] Carlita T Kinjal 06/25/2020 1 [place] [id number] Carlita T Kinjal II [id number] Carlita T Kinjal 06/25/2020 2 [place] Carlita T Kinjal [id number] Carlita Grissom Kinjal Notes Date Note Type Note Provider Name and Address Organization Details Recorded Time 03/17/2018 text/html Mr. Bearden returns today for follow-up of BPH with severe incomplete bladder emptying. He underwent greenlight laser vaporization of the prostate about 3 weeks ago. His preoperative residual was over 500 mL. He reports he is doing extremely well. He notes improved force of stream. No significant urgency frequency or dysuria. LUIS ARMANDO LEE MD [facility] [place], [address], [facility] 03/17/2018 09:22:08 06/21/2018 text/html Mr. Bearden returns today for follow-up of BPH with severe incomplete bladder emptying. He underwent greenlight laser vaporization of the prostate in February. His preoperative residuals were over 500 mL. Overall he is very pleased. He has occasional mild postvoid dribbling. No dysuria or hematuria. MD Carlos Alberto [place], [address], [facility] 06/21/2018 09:16:40 06/22/2019 text/html Mr. Bearden returns today for follow-up of BPH with a history of severe incomplete bladder emptying. He underwent greenlight laser vaporization of the prostate in February 2018. He continues on Flomax and finasteride. Overall he is very pleased with his voiding. No significant nocturia decreased force of stream or straining to void. No hematuria. No dysuria. LUIS ARMANDO LEE MD [address] [place] [address], [phone], [facility] 06/22/2019 09:22:52 06/25/2020 text/html Mr. Bearden returns today for follow-up. He has a history of BPH with severe incomplete bladder emptying treated with greenlight laser in 2017. He continues on Flomax and finasteride. Overall he is very pleased with his voiding. He has occasional postvoid dribbling. No dysuria. No gross hematuria. He was evaluated for microscopic hematuria a year ago. LUIS ARMANDO LEE MD [address] [place] [address], [phone], [facility] 06/25/2020 09:21:17
[2025-02-12 09:05] VITALS: BP 94/64; PULSE 80; RESP 18; O2SAT 99; BMI 27.8
--- NOTE | 2025-02-12 09:58 | EXP.PAIN.SOA ---
[facility] Disclaimer: The information contained in this section may have been updated after the patient was seen, as this information can be updated by other users. Medical History Acute sinusitis Bilateral serous otitis media Viral syndrome Hematoma of right lower extremity Contusion of right lower extremity Acute bronchitis Acute sinusitis Cough variant asthma Muscle spasms of both lower extremities Encounter for screening for malignant neoplasm of prostate Impaired glucose tolerance Encounter for immunization Left hip pain Impaired glucose tolerance Encounter for screening for malignant neoplasm of prostate Encounter for laboratory testing for COVID-19 virus Bilateral otitis media Bronchitis Acute and chronic respiratory failure with hypoxia COPD mixed type Chronic dyspnea Multiple pulmonary nodules ILD (interstitial lung disease) Restrictive lung disease History of 2019 novel coronavirus disease (COVID-19) Dyspnea on exertion Exposure to COVID-19 virus Surgical History History of surgery on arm History of nasal surgery History of cholecystectomy History of non-cataract eye surgery History of lumbar surgery Family History Mother Lung disease Social History Smoking Status: Never smoker alcohol intake: never substance use type: denies use current occupational status: retired and other Travel in the last 8 weeks: None household members: none housing: house PM Subjective & Objective Subjective Subjective:: Patient is a pleasant 70-year-old male who presents today for follow-up of a right intra-articular knee injection on 01/30/2025. Today he rates his pain a 8 out of 10. He states that this injection did not seem to do overall. He states that he is still having the same pain in the right knee that is worse with increased ambulation or activity and that does feel like there might be a little bit of swelling on the lateral side that his [id number] noticed. Patient states that he is interested in other options for the knee. He does state from our last visit he is still overall doing pretty good with his low back and buttocks area since his injections in November. He states he will on rare occasions have some pain into the hip but it is not continuous and it is still manageable. Patient was prescribed compounded cream and states he does use this and feels like it really does help on the knees. His Jayant has been reviewed and is appropriate. Review of Systems: General: No recent weight changes, no fever, no sleep disturbances Respiratory: No cough, no shortness of air, no recurring pulmonary infections Cardiovascular/peripheral vascular: No chest pain, no palpitations, no edema, no shortness of breath Gastrointestinal: No new onset incontinence, normal bowel movements reported Genitourinary: No new onset incontinence Musculoskeletal: Right knee pain Psychiatric: [Normal mood/affect] Neurological: [Denies weakness in extremities], [denies balance issues] Pain at rest (0-10 scale): 8 Objective Objective:: Physical Exam: General: Alert and oriented x3, no acute distress, pleasant and cooperative Lungs: Respirations even and unlabored, symmetrical chest expansion Eyes: PERRL Musculoskeletal: Flexion and extension of right knee somewhat guarded secondary to pain, [antalgic gait noted] Neurological: Speech clear, no gross sensory deficit Has patient had previous pain injection?: Yes Percent improvement in pain since last injection: Minimal Conservative treatment options previously tried: Home exercise plan Length of treatment: Longer than 12 weeks Meds Home Medications and Allergies Home Medications ?Medication ?Instructions ?Recorded ?Confirmed ?Type aspirin 81 mg tablet,delayed 81 mg PO DAILY 12/23/24 02/12/25 History release azelastine 137 mcg (0.1 %) nasal 1 spray intranasal BID 12/23/24 02/12/25 History spray fexofenadine 180 mg tablet 180 mg PO HS 12/23/24 02/12/25 History fluticasone 500 mcg-salmeterol 50 1 ea inhalation BID 12/23/24 02/12/25 History mcg/dose blistr powdr for inhalation ([facility] Inhub) levothyroxine 112 mcg tablet 112 mcg PO DAILY 12/23/24 02/12/25 History sertraline 50 mg tablet 50 mg PO DAILY 12/23/24 02/12/25 History tamsulosin 0.4 mg capsule 0.4 mg PO DAILY 12/23/24 02/12/25 History prednisone 20 mg tablet 40 mg (2 x 20 mg) PO DAILY 7 days 12/27/24 02/12/25 Rx #14 tabs albuterol sulfate 90 mcg/actuation See Rx Instructions .Route 12/28/24 02/12/25 Rx aerosol inhaler .COMPLEX #8.5 grams furosemide 40 mg tablet (Lasix) 40 mg PO DAILY PRN edema #30 tabs 01/02/25 02/12/25 Rx sacubitril 24 mg-valsartan 26 mg 1 tab PO BID #60 tabs 01/02/25 02/12/25 Rx tablet (Entresto) spironolactone 25 mg tablet 25 mg PO DAILY #30 tabs 01/02/25 02/12/25 Rx trazodone 50 mg tablet See Rx Instructions .Route 01/10/25 02/12/25 Rx .COMPLEX #90 tabs finasteride 5 mg tablet See Rx Instructions .Route 01/11/25 02/12/25 Rx .COMPLEX #90 tabs fluticasone 500 mcg-salmeterol 50 1 inh inhalation BID 90 days #60 ea 01/16/25 02/12/25 Rx mcg/dose blistr powdr for inhalation ([employer] Inhub) famotidine 20 mg tablet 20 mg PO HS For GI protection #90 01/18/25 02/12/25 Rx tabs gabapentin 300 mg capsule 300 mg PO DAILY #90 caps 01/18/25 02/12/25 Rx gabapentin 300 mg capsule 600 mg (2 x 300 mg) PO HS #180 caps 01/18/25 02/12/25 Rx empagliflozin 10 mg tablet 10 mg PO DAILY 30 days #30 tabs 01/22/25 02/12/25 Rx (Jardiance) metoprolol succinate 25 mg 25 mg PO DAILY 30 days #30 tabs 01/22/25 02/12/25 Rx tablet,extended release 24 hr pantoprazole 40 mg tablet,delayed 40 mg PO DAILY 30 days #30 tabs 01/22/25 02/12/25 Rx release (Protonix) rivaroxaban 20 mg tablet 20 mg PO QPMWITHMEAL 30 days #30 01/22/25 02/12/25 Rx tabs rosuvastatin 10 mg tablet 10 mg PO DAILY Cholesterol 01/25/25 02/12/25 History naproxen 500 mg tablet 500 mg PO BID PRN Pain or 01/30/25 02/12/25 Rx inflammation #60 tabs codeine 10 mg-guaifenesin 100 mg/5 5 - 10 ml PO Q4-6H #120 mL 02/01/25 02/12/25 Rx mL oral liquid montelukast 10 mg tablet See Rx Instructions .Route 02/02/25 02/12/25 Rx .COMPLEX #90 tabs New Prescriptions to Start Prescriptions: Allergies Allergy/AdvReac Type Severity Reaction Status Date / Time Sulfa (Sulfonamide Allergy Intermediate Rash Verified 02/01/25 08:29 Antibiotics) Assessment and Plan *Assessment and plan (1) Right knee pain: Status: Acute Category: Medical Code(s): M25.561 - Pain in right knee Plan I did discuss with the patient at length that there is still the possibility of trying a nerve block for the right knee pain and we did also discuss possible gel injections. I did probation counselor him that our office does not do the gel injections however I do believe that Dr. Ariel Hughes in orthopedics does. Patient was counseled that we will send a referral over to his office to see about the gel injections. Patient will return to clinic in 1 month following this evaluation. Patient agrees with this plan of care patient has been instructed to contact the clinic with any concerns before the next appointment. Dr. Thibodeaux has reviewed this note and agrees with this plan of care. This note was dictated using voice recognition software and make contain errors or omissions. All injections are used with Lidocaine, Bupivacaine and dexamethasone. Occasionally urine drug screen is needed to verify patient's compliance with our office pain contract. This is ordered based off specific treatments related to chronic pain with the potential to abuse certain medications.
== END 2025-02-12 23:59 | disposition home or self-care (01) ==
LOC: SC.PAIN 08:57
PROVIDERS: PCP Internal Medicine; Visit Provider Nurse Practitioner Family
DX: M25.561 Pain in right knee (principal); Z79.899 Other long term (current) drug therapy
CPT/HCPCS: 99212; G0463

== ENCOUNTER 2025-02-22 09:31 | Outpatient (CLI) | payer BC, MEDICARE, SELFPAY ==
--- OUTSIDE RECORDS SUMMARY | 2025-02-22 09:35 | XMS_ITS | Data Portability ---
Author Organization [facility] Address [address] [place] [address] Assessment No assessment recorded. Plan of Treatment [...] CSF 64 mg/dL 15-45 high Not Available [facility] (Lab Registration) [address], [place], [address], 09/08/2022 13:00:50 09/08/20 22 09/08/2022 TOTAL PROTE IN CSF note Unles s other peace noted testi ng perfo rmed at: [facility] [address] [place] [address] [phone] Otis pace MD CLIA: [id number] Not Available [facility] (Lab Registration) [address] [place], [address], 09/08/2022 13:00:50 09/08/20 22 09/08/2022 GLUCO SE CSF QUANT glucose CSF quant 69 mg/dL 40-75 Not Available [facility] (Lab Registration) [address] [place], [address], 09/08/2022 13:00:51 09/08/20 22 09/08/2022 GLUCO SE CSF QUANT note Unles s other peace noted testi ng perfo rmed at: [facility] [address] [place] [address] [phone] Otis pace MD CLIA: [id number] Not Available [facility] (Lab Registration) [address] [place], [address], 09/08/2022 13:00:51 09/08/20 22 09/08/2022 CELL COUNT CSF CSF tube # TUBE # 3 Not Available [facility] (Lab Registration) [address] [place], [address], 09/08/2022 13:38:05 09/08/2009/08/2022 CELL COUNT CSF CSF color COLORL ESS colorl ess Not Available [facility] (Lab Registration) [address] [place], [address], 09/08/2022 13:38:05 09/08/2009/08/2022 CELL COUNT CSF CSF apperance CLEAR clear Not Available [facility] (Lab Registration) [address] [place], [address], 09/08/2022 13:38:05 09/08/20 22 09/08/2022 CELL COUNT CSF volume 35 mL Not Available [facility] (Lab Registration) [address] [place], [address], 09/08/2022 13:38:05 09/08/2009/08/2022 CELL COUNT CSF CSF WBC count 13 /uL 0-5 high Not Available [facility] (Lab Registration) [address] [place], [address], 09/08/2022 13:38:05 09/08/20 22 09/08/2022 CELL COUNT CSF CSF RBC count 2 /uL 0-1 high Not Available [facility] (Lab Registration) [address] [place], [address], 09/08/2022 13:38:05 09/08/20 22 09/08/2022 CELL COUNT CSF polynuclear 0 % Not Available [facility] (Lab Registration) [address] [place], [address], 09/08/2022 13:38:05 09/08/20 22 09/08/2022 CELL COUNT CSF mononuclear 100 % Not Available [facility] (Lab Registration) [address] [place], [address], 09/08/2022 13:38:05 09/08/2009/08/2022 CELL COUNT CSF note Unles s other peace noted testi ng perfo rmed at: [facility] [address] [place] [address] [phone] Otis pace MD CLIA: [id number] Not Available [facility] (Lab Registration) [address] [place], [address], 09/08/2022 13:38:05 09/08/20 22 09/08/2022 GRAM STAIN BODY FLUID specimen source CSF Not Available [facility] (Lab Registration) [address] [place], [address], 09/08/2022 13:58:51 09/08/2009/08/2022 GRAM STAIN BODY FLUID gram stain organism 1 NONE SEEN Not Available [facility] (Lab Registration) [address] [place], [address], 09/08/2022 13:58:51 09/08/20 22 09/08/2022 GRAM STAIN BODY FLUID note Unles s other peace noted testi ng perfo rmed at: [facility] [address] [place] [address] [phone] Otis pace MD CLIA: [id number] Not Available [facility] (Lab Registration) [address] [place], [address], 09/08/2022 13:58:51 09/08/20 22 09/08/2022 CULTU RE CSF results MRB 09-09 836 No Growt h at Day 1 MRB 09-10 600 No Growt h at Day 2 LT 09-11 534 No Growt h at Day 3 Not Available [facility] (Lab Registration) [address] [place], [address], 09/11/2022 05:35:53 09/08/20 22 09/08/2022 CULTU RE CSF note Unles s other peace noted testi ng perfo rmed at: [facility] [address] [place] [address] [phone] Otis pace MD CLIA: [id number] Not Available [facility] (Lab Registration) [address] [place], [address], 09/11/2022 05:35:53 09/08/20 22 09/08/2022 VDRL CSF QUAL note Unles s other peace noted testi ng perfo rmed at: [facility] [address] [place] [address] [phone] Otis pace MD CLIA: [id number] Not Available [facility] (Lab Registration) [address] [place], [address], 09/12/2022 04:08:24 09/08/2009/12/2022 VDRL CSF QUAL vdrl CSF Not Available [facility] (Lab Registration) [address] [place], [address], 09/12/2022 04:08:24 09/08/20 22 09/08/2022 MULTI PLE SCLER OSIS( MS) PROFI LE note Unles s other peace noted testi ng perfo rmed at: [facility] jamil gonzalez [address] [place] [address] [phone] Otis pace MD CLIA: [id number] Not Available [facility] (Lab Registration) [address] [place], [address], 09/14/2022 15:10:12 09/08/20 22 09/14/2022 MULTI PLE SCLER OSIS( MS) PROFI LE albumin TNP g/dL Test not perfo rmed. No serum gel recei shena. Conta ct: Talisha somers Jasonme ter 09-11 Not Available [facility] (Lab Registration) [address] [place], [address], 09/14/2022 15:10:12 09/08/20 22 09/14/2022 MULTI PLE SCLER OSIS( MS) PROFI LE immunoglobul in g, qn, serum TNP mg/dL Test not perfo rmed. No serum gel recei shena. Conta ct: Dinotrevor na Vanme ter 09-11 SENT TO REFER ENCE LAB Not Available [facility] (Lab Registration) [address] [place], [address], 09/14/2022 15:10:12 09/08/20 22 09/14/2022 MULTI PLE SCLER OSIS( MS) PROFI LE albumin, CSF 28 mg/dL 15-55 Not Available [facility] (Lab Registration) [address] [place], [address], 09/14/2022 15:10:12 09/08/20 22 09/14/2022 MULTI PLE SCLER OSIS( MS) PROFI LE IgG, quant, CSF 2.0 mg/dL 0.0-10 .3 Not Available [facility] (Lab Registration) [address] [place], [address], 09/14/2022 15:10:12 09/08/20 22 09/14/2022 MULTI PLE SCLER OSIS( MS) PROFI LE CSF IgG index TNP Unabl e to calcu late resul t since non-n umeri c resul t obtai glenn for compo nent test. Not Available [facility] (Lab Registration) [address] [place], [address], 09/14/2022 15:10:12 09/08/20 22 09/14/2022 MULTI PLE SCLER OSIS( MS) PROFI LE oligoclonal banding -serum TNP Test not perfo rmed. No serum gel recei shena. Conta ct: Talisha yonis Del Angel ter 09-11 Not Available [facility] (Lab Registration) [address] [place], [address], 09/14/2022 15:10:12 09/08/20 22 09/14/2022 MULTI PLE [...] break down >100 [facility] [address] [id number] [facility] Lab Direc tor: Cain patton PhD, Phone : [phone] Not Available [facility] (Lab Registration) [address] [place], [address], 09/14/2022 15:10:12 09/08/20 22 09/14/2022 MULTI PLE SCLER OSIS( MS) PROFI LE IgG/alb ratio, CSF 0.07 0.00-0 .25 Not Available [facility] (Lab Registration) [address] [place], [address], 09/14/2022 15:10:12 09/08/20 22 09/14/2022 MULTI PLE SCLER OSIS( MS) PROFI LE IgG, syn rate, CSF TNP mg/da y Unabl e to calcu late resul t since non-n umeri c resul t obtai glenn for compo nent test. Not Available [facility] (Lab Registration) [address], [place], [address], 09/14/2022 15:10:12 09/08/20 22 09/14/2022 MULTI PLE [...] as multi ple scler osis (MS), subac [place] encep halit is, neuro syphi lis, etc. [...] oblot ting metho dolog y. Not Available [facility] (Lab Registration) [address], [place], [address], 09/14/2022 15:10:12 09/08/20 22 09/08/2022 ANGIO TENSI N CONVE RT ENZ., CSF note Unles s other peace noted testi ng perfo rmed at: [facility] [address] [place] [address] [phone] Otis pace MD CLIA: [id number] Not Available [facility] (Lab Registration) [address] , [place], [address], 09/14/2022 18:08:47 09/08/20 22 09/14/2022 ANGIO TENSI N CONVE RT ENZ., CSF angiotensin convert enz, CSF <1.5 U/L 0.0-3. 1 Speci men Comme nt: Test( s) 85139 2-SHARON , CSF Speci men Comme nt: resul ts are label ed for resea rch purpo ses only by the Speci men Comme nt: assay 's manuf actur er. The perfo rmanc e hugo acter istic s of Speci men Comme nt: this assay have not been estab lishe d by e [facility] actur er. Speci men Comme nt: [...] rp. Perfo rmed at: - [facility] [place] [address] [facility] , [place] [address] Lab Direc tor: Jaelyn maldonado MD, Phone : [phone] Not Available [facility] (Lab Registration) [address], [place], [address], 09/14/2022 18:08:47 09/08/20 22 09/08/2022 LYME, LINE BLOT, CSF note Unles s other peace noted testi ng perfo rmed at: [facility] [address] [address] [phone] Otis pace MD CLIA: [id number] Not Available [facility] (Lab Registration) [address] [place], [address], 09/19/2022 13:09:31 09/08/20 22 09/19/2022 LYME, LINE BLOT, CSF P93 Ab. IgG Absent Not Available [facility] (Lab Registration) [address] [place], [address], 09/19/2022 13:09:31 09/08/20 22 09/19/2022 LYME, LINE BLOT, CSF P66 Ab. IgG Absent Not Available [facility] (Lab Registration) [address] [place], [address], 09/19/2022 13:09:31 09/08/20 22 09/19/2022 LYME, LINE BLOT, CSF P58 Ab. IgG Absent Not Available [facility] (Lab Registration) [address] [place], [address], 09/19/2022 13:09:31 09/08/20 22 09/19/2022 LYME, LINE BLOT, CSF P45 Ab. IgG Absent Not Available [facility] (Lab Registration) [address] [place], [address], 09/19/2022 13:09:31 09/08/20 22 09/19/2022 LYME, LINE BLOT, CSF P41 Ab. IgG Absent Not Available [facility] (Lab Registration) [address] [place], [address], 09/19/2022 13:09:31 09/08/20 22 09/19/2022 LYME, LINE BLOT, CSF P39 Ab. IgG Absent Not Available [facility] (Lab Registration) [address] [place], [address], 09/19/2022 13:09:31 09/08/20 22 09/19/2022 LYME, LINE BLOT, CSF P30 Ab. IgG Absent Not Available [facility] (Lab Registration) [address] [place], [address], 09/19/2022 13:09:31 09/08/20 22 09/19/2022 LYME, LINE BLOT, CSF P28 Ab. IgG Absent Not Available [facility] (Lab Registration) [address] [place], [address], 09/19/2022 13:09:31 09/08/20 22 09/19/2022 LYME, LINE BLOT, CSF P23 Ab. IgG Absent Not Available [facility] (Lab Registration) [address] [place], [address], 09/19/2022 13:09:31 09/08/20 22 09/19/2022 LYME, LINE BLOT, CSF P18 Ab. IgG Absent Not Available [facility] (Lab Registration) [address] [place], [address], 09/19/2022 13:09:31 09/08/20 22 09/19/2022 LYME, LINE [...] inves tigat ional use only. Not Available [facility] (Lab Registration) [address] [place], [address], 09/19/2022 13:09:31 09/08/20 22 09/19/2022 LYME, LINE BLOT, CSF P41 Ab. IgM Absent Not Available [facility] (Lab Registration) [address], [place], [address], 09/19/2022 13:09:31 09/08/20 22 09/19/2022 LYME, LINE BLOT, CSF P39 Ab. IgM Absent Not Available [facility] (Lab Registration) [address] [place], [address], 09/19/2022 13:09:31 09/08/20 22 09/19/2022 LYME, LINE BLOT, CSF P23 Ab. IgM Absent Not Available [facility] (Lab Registration) [address] [place], [address], 09/19/2022 13:09:31 09/08/20 22 09/19/2022 LYME, LINE [...] rmed at: BN - [facility] [place] [address] [facility] , [place] [address] Lab Direc tor: Jaelyn maldonado MD, Phone : [phone] Not Available [facility] (Lab Registration) [address] [place], [address], 09/19/2022 13:09:31 09/08/20 22 09/08/2022 CULTU RE VIRUS CP note Unles s other peace noted testi ng perfo rmed at: [facility] [address] [place] [address] [phone] Otis pace MD CLIA: [id number] Not Available [facility] (Lab Registration) [address], [place], [address], 09/21/2022 09:09:43 09/08/20 22 09/21/2022 CULTU RE VIRUS CP culvircp No virus isolat ed. Perfo rmed at: [facility] [place] [address] [facility] [place] [address] Lab Direc tor: Jaelyn maldonado MD, Phone : [phone] Not Available [facility] (Lab Registration) [address], [place], [address], 09/21/2022 09:09:43 09/08/20 22 09/08/2022 CRYPT OCOCC US ANTIG EN, CSF note Unles s other peace noted testi ng perfo rmed at: [facility] [address] [place] [address] [phone] Otis pace MD CLIA: [id number] Not Available [facility] (Lab Registration) [address], [place], [address], 09/22/2022 15:13:21 09/08/20 22 09/22/2022 CRYPT OCOCC US ANTIG EN, CSF cryptococcus antigen, CSF Negati ve negati ve SENT TO REFER ENCE LAB Not Available [facility] (Lab Registration) [address], [place], [address], 09/22/2022 15:13:21 09/08/20 22 09/22/2022 CRYPT OCOCC US ANTIG EN, CSF cap mandated reflex to culture Not Indica ludin Perfo rmed at: [facility] [place] [address] , [place] [address] Lab Direc tor: Jaelyn maldonado MD, Phone : [phone] Not Available [facility] (Lab Registration) [address] [place], [address], 09/22/2022 15:13:21 09/08/20 22 09/08/2022 lumba r punct ure diagn [facility] [address] [place] [address] Phone: Fax: Name: CARLITA RAM Exam Date: 2021 : [birth year] Age 67 Gender : M Access ion: [id number] Physic earnest: SAIMA MURPHY Facili ty: [facility] Facili ty HSV: Outpat ient Exam: LUMBAR [...] Thank you for referr CARLITA Carver to [facility]. Legall y authen ticate d by ANTONIO SUTTON 2021-10 13:22: 26 CC'ed Logic: Orderi ng Provid er: KATHERINE COVINGTON CC Provid er: ROSELYN OBANDO Attend ing Provid er: KATHERINE ASIMA Referr ing Provid er: KATHERINE COVINGTON Admitt ing Provid er: KATHERINE SAIMA [email or web address] [facility] [place], [address], 09/09/2022 08:46:52 09/08/20 22 09/08/2022 lumba r punct ure (PROC ) No observ ation record ed. [email or web address] [facility]Radiology) [facility] [place], [address], 09/08/2022 13:31:57 09/16/20 22 09/08/2022 fluor o guide needl e place ment [facility] [place] [address] Phone: Fax: Name: CARLITA RAM Exam Date: 2021 : [birth year] Age 67 Gender : M Access ion: [id number] Physic earnest: SAIMA MURPHY Facili ty: [...] SAIMA Admitt ing Provid er: KATHERINE SAIMA [email or web address] (Radiology) [address] [place], [address], 09/16/2022 08:35:51 09/16/2009/08/2022 lumba r punct ure (PROC ) No observ ation record ed. [address] Centralized Scheduling [address] [place], [address], 09/16/2022 08:35:27 Result Notes None recorded. Procedures Surgical History Date Name Laterality Status Provider Name and Address Organization Details Recorded Time prostatectomy completed Joycealexandria [place] [facility] [place] 09/09/2022 09:14:22 Cholecystectomy completed Joycealexandria [place] [facility] [place] 09/09/2022 09:14:30 open stone operation on kidney or renal pelvis completed Joycealexandria [place] [facility] [place] 09/09/2022 09:14:41 procedure on eye completed Joycealexandria [place] [facility] [place] 09/09/2022 09:15:06 Back Surgery completed Joycealexandria [place] [facility] [place] 09/09/2022 09:15:12 procedure on upper arm completed Joyce [place] [facility] [place] 09/09/2022 09:15:32 procedure on lower leg completed Joycealexandria [place] [facility] [place] 09/09/2022 09:15:41 Imaging Results Imaging Date Name Status LastModified by Organiz ation Details LastModified Time 09/08/2022 lumbar puncture diagnstc completed [address] (Radiology) [address] [place], [address], 09/09/2022 08:46:52 09/08/2022 lumbar puncture (PROC) completed [email or web address] [place] [address] (Radiology) [address] [place], [address], 09/08/2022 13:31:57 09/08/2022 fluoro guide needle placement completed [address] (Radiology) [address] [place], [address], 09/16/2022 08:35:51 09/08/2022 lumbar puncture (PROC) completed [address] Centralized Scheduling [address] [place], [address], 09/16/2022 08:35:27 Procedure Notes None recorded. Medical Equipment None Reported. Allergies Allergen ID Allergen Name Allergen Category Reaction Reaction Severity Criticality Documentation Date Start Date Code Code System Note Provider Name and Address Organization Details Recorded Time 79535 Substance with sulfonami de structure and antibacte rial mechanism of action (substanc e) medicatio n Not available Not available Not available 09/09/2022 69242 8003 SNOMED Joyce Simba [facility] & [place] 09:13:10 Medications Name Sig Start Date Stop [...] Updated DateTime 07/14/2023 180.34 cm 27.2 kg/m2 66405.51 g 98 [degF] [facility] 07/14/2023 09:49:59 Date Recorded Body height Body mass index (BMI) Body weight Body temperature Provider Name and Address Organization Details Last Updated DateTime 07/26/2024 180.34 cm 27.2 kg/m2 99768.51 g 98 [degF] Librado Hannah [facility] & [place] 07/26/2024 08:59:03 Date Recorded Body height Body mass index (BMI) Body weight Body temperature Oxygen saturation Oxygen saturation in Arterial blood by Pulse oximetry Heart rate Systolic blood pressure Diastolic blood pressure Provider Name and Address Organization Details Last Updated DateTime 11/23/202 2 180.34 cm 30.5 kg/m2 95409.7 3 g 96.4 [degF] 97 % 97 % 85 /min 140 mm[Hg] 70 mm[Hg] Joyce BELTRAN [facility] & [place] 2 09:12:45 Date Recorded Body height Body temperature Oxygen saturation Oxygen saturation in Arterial blood by Pulse oximetry Heart rate Systolic blood pressure Diastolic blood pressure Provider Name and Address Organization Details Last Updated DateTime 2 180.34 cm 96 [degF] 98 % 98 % 92 /min 132 mm[Hg] 78 mm[Hg] Saima Murphy MD [address] [place] [address], [phone], [facility] & [place] 2 08:42:14 Social History None recorded. Functional Status None recorded. Mental Status None recorded. Family History Relationship Description Onset Age of this Age Resolved Age Notes LastModified by Organization Details LastModified Time Father No current problems or disability [email or web address] Not available 09/09 09:14:07 Mother No current problems or disability [email or web address] Not available 09/09 09:14:07 Medical History Condition Response Anxiety/Depression Y Hyperlipidemia Y Arthritis Y Hypertension Y Hypothyroidism Y Past Encounters Encounter ID Performer Location Encounter Start Date Encounter Closed Date Diagnosis/Indication Diagnosis SNOMED-CT Code Diagnosis ICD10 Code Diagnosis Note [id number] MD [facility] [address] [place] [address] [place] [address] 09/09/2022 09:00:27 09/09/2022 10:35:21 Normal pressure hydrocephalus 40025180 G91.2 improvemen t noted after high-volum e spinal tap yesterday, distinct improvemen t in gait and balance as well as overall brightness . Patient himself feels better, I will follow-up with him over the next 2 weeks. In the meantime will send informatio n to Dr. Dionna Koenig at [facility] for further evaluation have also sent spinal fluid for further testing and awaiting results. [id number] MD [facility] [address] [place] [address],[facility] [place] [address] 10/07/2022 08:27:24 10/07/2022 13:13:34 Normal pressure hydrocephalus 13160592 G91.2 Distinct drop-off of gait mobility noted on today's examinatio jamey leahy he seemed to have a 2 week window of improvemen t with gradual drop-off since mostly noted on gait stability and balance but also on some degree of mental brightness . I have recommende d follow-up with Dr.Kara Koenig [facility] and will be sending these records to her. [id number] Carlito Gould Jr, MD [facility] [address] [address] 07/14/2023 09:27:48 07/14/2023 10:28:15 Lower urinary tract symptoms due to benign prostatic hypertrophy 1727930972 9101 N40.1 patient with history of BPH. He underwent a green light laser TURP [place] [address] Lee. He continues to void well. Continues on tamsulosin and finasterid e as well. We discussed that typically folks can get off of the medication s after TURP. Screening for malignant neoplasm of prostate 701926188 Z12.5 patient's recent PSA was 2.0 in March 2023. Corrected for the finasterid e and this would be 4.0 in his within normal limits for his age. [id number] Carlito Gould Jr, MD [address] [address] 07/26/2024 08:53:34 07/26/2024 09:47:09 Lower urinary tract symptoms due to benign prostatic hypertrophy 1494086831 9101 N40.1 patient with history of BPH. He underwent a green light laser TURP [place] [address] Lee. He continues to void well. Continues on tamsulosin and finasterid e as well. We discussed that typically folks can get off of the medication s after TURP. Screening for malignant neoplasm of prostate 412465019 Z12.5 patient's recent PSA was 2.0 in March 2023. Corrected for the finasterid e and this would be 4.0 in his within normal limits for his age. Yearly screening is recommende d. Health Concerns Section Related Observation LastModified by Organization Detai ls LastModified Time None Recorded Concern Status LastModified by Organization Details LastModified Time None Recorded Advance Directives Directive None Recorded Payers Insurance Date Sequence Insurance Name Policy Number Policy [place] Covered Member ID [place] Member ID Guarantor Name 08/17/2024 1 [place] [id number] Carlita Bearden [id number] Carlita Bearden 07/26/2024 2 [place] Carlita Bearden [id number] Carlita Bearden Notes Date Note Type Note Provider Name [...] and activities. Patient works in the local [employer] department and was complaining of increasing difficulty [...] acute weakness and headache was seen at [facility] where another MRI scan was performed, there [...] complaints at this time. Saima Murphy MD [address] [place] [address], [phone], [facility] 09/09/2022 10:32:33 10/07/2022 text/html Patient follows up [...] great of an issue. Saima Murphy MD [address] [place] [address], [phone], [facility] 10/07/2022 09:13:08 07/14/2023 text/html patient is a 68-year-old white male who I previously saw in [place]. He transferred care to [facility] today. He has a history of BPH and underwent a laser TURP [place] [address] Lee. His preoperative residual was over 500 and postoperatively was 32 cc in 2019. Patient was last seen by myself in October 2021 his postvoid residual at that time was 85 cc. Patient states he is voiding well. He remains on tamsulosin and finasteride. His last PSA was 2.March. Carlito Gould Jr, MD [address] [place] [address], [address], [place], [address], [facility] 07/14/2023 15:54:55 07/26/2024 text/html Patient is a [...] would be 4.0. Carlito Gould Jr, MD [address] [place] [address], [address], [place] [place], [address], [facility] 08/16/2024 10:12:01
--- OUTSIDE RECORDS SUMMARY | 2025-02-22 09:35 | XMS_ITS ---
Author Organization Unknown Medications Medication Instructions Effective Dates (start - stop) Status chlorhexidine gluconate 1.2 MG/ML Mouthwash 2529-39-46R66:00:00.000+00:0 0 - Completed levothyroxine sodium 0.112 M G Oral Tablet 9600-70-70M07:00:00.000+00:0 0 - Completed doxycycline hyclate 100 MG O ral Capsule 8149-18-57N17:00:00.000+00:0 0 - Completed levothyroxine sodium 0.112 M G Oral Tablet 1191-28-79D01:00:00.000+00:0 0 - Completed cephalexin 500 MG Oral Capsule 728-22-06S18:00:00.000+00:0 0 - Completed levothyroxine sodium 0.112 M G Oral Tablet 2664-05-97B17:00:00.000+00:0 0 - Completed levothyroxine sodium 0.112 M G Oral Tablet 8171-24-96Q77:00:00.000+00:0 0 - Completed ondansetron 8 MG Oral Tablet 11-28-29:00:00.000+00:0 0 - Completed cefdinir 300 MG Oral Capsule 11-27-27:00:00.000+00:0 0 - Completed valsartan 160 MG Oral Tablet 12-17-05:00:00.000+00:0 0 - Completed amoxicillin 500 MG Oral Capsule 8107-59-09O41:00:00.000+00:0 0 - Completed finasteride 5 MG Oral Tablet 12-19-04:00:00.000+00:0 0 - Completed gabapentin 300 MG Oral Capsule 2 980-68-18U94:00:00.000+00:0 0 - Completed gabapentin 300 MG Oral Capsule 835-56-32K58:00:00.000+00:0 0 - Completed mupirocin 0.02 MG/MG Topical Ointment 5736-08-41O27:00:00.000+00:0 0 - Completed gabapentin 300 MG Oral Capsule 230-42-00E93:00:00.000+00:0 0 - Completed finasteride 5 MG Oral [...] rosuvastatin calcium 10 MG O ral Tablet 5458-00-54J06:00:00.000+00:0 0 - Completed sertraline 50 MG Oral Tablet 11-28-07:00:00.000+00:0 0 - Completed rosuvastatin calcium 10 MG O ral Tablet 0162-89-43E54:00:00.000+00:0 0 - Completed rosuvastatin calcium 10 MG O ral Tablet 2640-69-13B91:00:00.000+00:0 0 - Completed montelukast 10 MG Oral Tablet 09-07-26:00:00.000+00:0 0 - Completed gabapentin 300 MG Oral Capsule 204-51-97O39:00:00.000+00:0 0 - Completed gabapentin 300 MG Oral Capsule 579-10-30Y52:00:00.000+00:0 0 - Completed cephalexin 500 MG Oral Capsule 604-95-51X80:00:00.000+00:0 0 - Completed montelukast 10 MG Oral Tablet 08-06-06:00:00.000+00:0 0 - Completed rosuvastatin calcium 10 MG O ral Tablet 8264-55-26Z65:00:00.000+00:0 0 - Completed azithromycin 500 MG Oral Tablet 1676-86-73W67:00:00.000+00:0 0 - Completed ondansetron 4 MG Disintegrat ing Oral Tablet 3847-96-51M58:00:00.000+00:0 0 - Completed tamsulosin hydrochloride 0.4 MG Oral Capsule 9102-13-67P37:00:00.000+00:0 0 - Completed nitrofurantoin, macrocrystal s 50 MG Oral Capsule 4872-08-81M37:00:00.000+00:0 0 - Completed valsartan 160 MG Oral Tablet 11-28-07:00:00.000+00:0 0 - Completed trazodone hydrochloride 50 M G Oral Tablet 3212-39-66Y85:00:00.000+00:0 0 - Completed nitrofurantoin, macrocrystal s 50 MG Oral Capsule 6988-02-47E31:00:00.000+00:0 0 - Completed tamsulosin hydrochloride 0.4 MG Oral Capsule 6600-81-56U36:00:00.000+00:0 0 - Completed nitrofurantoin, macrocrystal s 50 MG Oral Capsule 9742-46-92G41:00:00.000+00:0 0 - Completed sertraline 50 MG Oral Tablet 11-25-07:00:00.000+00:0 0 - Completed 24 HR diltiazem hydrochlorid e 240 MG Extended Release Oral Capsule 8105-35-02X14:00:00.0 00+00:0 0 - Completed 24 HR diltiazem hydrochlorid e 240 MG Extended Release Oral Capsule 8773-47-46Z11:00:00.0 00+00:0 0 - Completed tamsulosin hydrochloride 0.4 MG Oral Capsule 8871-93-09K79:00:00.000+00:0 0 - Completed 24 HR diltiazem hydrochlorid e 240 MG Extended Release Oral Capsule 6639-63-77P56:00:00.0 00+00:0 0 - Completed trazodone hydrochloride 50 M G Oral Tablet 1989-52-85E86:00:00.000+00:0 0 - Completed 24 HR diltiazem hydrochlorid e 240 MG Extended Release Oral Capsule 5220-33-14K95:00:00.0 00+00:0 0 - Completed tamsulosin hydrochloride 0.4 MG Oral Capsule 6484-29-48E46:00:00.000+00:0 0 - Completed valsartan 160 MG Oral Tablet 12-20-04:00:00.000+00:0 0 - Completed levofloxacin 500 MG Oral Tablet 9998-79-72H01:00:00.000+00:0 0 - Completed nitrofurantoin, macrocrystal s 50 MG Oral Capsule 4598-81-75R10:00:00.000+00:0 0 - Completed trazodone hydrochloride 50 M G Oral Tablet 8442-28-16K93:00:00.000+00:0 0 - Completed valsartan 160 MG Oral Tablet 11-25-07:00:00.000+00:0 0 - Completed 60 ACTUAT fluticasone propio madina 0.5 MG/ACTUAT / salmeterol 0.05 MG/ACTUAT Dry Powder Inhaler [Advair] 7769-80-75Y29:00:00.000+00:0 0 - Completed 30 ACTUAT fluticasone furoat e 0.2 MG/ACTUAT / vilanterol 0.025 MG/ACTUAT Dry Powder Inhaler [Breo] 3754-75-69M38:00:00.000+00:0 0 - Completed 30 ACTUAT fluticasone furoat e 0.2 MG/ACTUAT / vilanterol 0.025 MG/ACTUAT Dry Powder Inhaler [Breo] 2033-58-68C82:00:00.000+00:0 0 - Completed acetaminophen 325 MG / hydro codone bitartrate 5 MG Oral Tablet 4768-07-03N44:00:00.000+00 :0 0 - Completed 30 ACTUAT fluticasone furoat e 0.2 MG/ACTUAT / vilanterol 0.025 MG/ACTUAT Dry Powder Inhaler [Breo] 0489-09-36S48:00:00.000+00:0 0 - Completed 60 ACTUAT fluticasone propio madina 0.5 MG/ACTUAT / salmeterol 0.05 MG/ACTUAT Dry Powder Inhaler [Advair] 8855-64-28G96:00:00.000+00:0 0 - Completed 60 ACTUAT fluticasone propio madina 0.5 MG/ACTUAT / salmeterol 0.05 MG/ACTUAT Dry Powder Inhaler [Advair] 9891-43-36C71:00:00.000+00:0 0 - Completed 30 ACTUAT fluticasone furoat e 0.2 MG/ACTUAT / vilanterol 0.025 MG/ACTUAT Dry Powder Inhaler [Breo] 8602-12-49V21:00:00.000+00:0 0 - Completed amoxicillin 875 MG / clavula madina 125 MG Oral Tablet 2338-67-54Z35:00:00.000+00:0 0 - Completed 60 ACTUAT fluticasone propio madina 0.5 MG/ACTUAT / salmeterol 0.05 MG/ACTUAT Dry Powder Inhaler [Advair] 1247-88-38X37:00:00.000+00:0 0 - Completed 30 ACTUAT fluticasone furoat e 0.2 MG/ACTUAT / vilanterol 0.025 MG/ACTUAT Dry Powder Inhaler [Breo] 6724-38-76X98:00:00.000+00:0 0 - Completed 60 ACTUAT fluticasone propio madina 0.5 MG/ACTUAT / salmeterol 0.05 MG/ACTUAT Dry Powder Inhaler [Advair] 1256-05-67H85:00:00.000+00:0 0 - Completed Patient Care team information Name Category Status Period Participants - - Proposed period not known -
--- OUTSIDE RECORDS SUMMARY | 2025-02-22 09:35 | XMS_ITS | Data Portability ---
Author Organization [facility] shi, YAR[facility] [place] CLOSED Address [address] [place] [address] Care Team Providers Care Data Examination Clerk Name Role Phone LUIS ARMANDO LEE Urologist DONG FOURNIER Information Assurance Specialist Assessment Encounter Date Assessment Date Assessment LastModified [...] available 8 09:21:32 culture, urine 2017 018 [facility], [address] [place] [address], [address], 8 09:59:40 Referral None recorded. Procedures None recorded. Surgeries None recorded. Imaging None recorded. Medication Orders None recorded. Patient TargetsNo targets recorded. Patient Instructions Encounter Date Encounter Id Patient Instructions Last Modified By Organization Details Last Modified Time 06/22/2019 [id number] blood in the urine: care instructions Not available 06/22/2019 09:22:18 06/25/2020 [id number] blood in the urine: care instructions Not available 06/25/2020 09:20:38 Reason for Referral None Reported. Results Created Date Observation Date Name Description Value Unit Range Abnormal Flag Note LastModifiedBy Organization Detail LastModifiedTime 02/22/20 18 02/21/2018 urina lysis , dipst ick, auto Unknown Analyte Yellow Not Available [facility] Surgery Schedule [address] [place] [address], [address], 02/21/2018 15:02:56 02/22/20 18 02/21/2018 urina lysis , dipst ick, auto Unknown Analyte Clear Not Available [facility] Surgery Schedule [address] [place], [address], 02/21/2018 15:02:56 02/22/20 18 02/21/2018 urina lysis , dipst ick, auto Unknown Analyte 1.015 Not Available [facility] Surgery Schedule [address] [place], [address], 02/21/2018 15:02:56 02/22/20 18 02/21/2018 urina lysis , dipst ick, auto Unknown Analyte 6.5 Not Available [facility] Surgery Schedule [address] [place], [address], 02/21/2018 15:02:56 02/22/20 18 02/21/2018 urina lysis , dipst ick, auto Unknown Analyte 25 Kiko/ul Trace Not Available [facility] Surgery Schedule [address] [place], [address], 02/21/2018 15:02:56 02/22/20 18 02/21/2018 urina lysis , dipst ick, auto Unknown Analyte Negati ve Not Available [facility] Surgery Schedule [address] [place], [address], 02/21/2018 15:02:56 02/22/20 18 02/21/2018 urina lysis , dipst ick, auto Unknown Analyte Trace Not Available [facility] Surgery Schedule [address] [place], [address], 02/21/2018 15:02:56 02/22/20 18 02/21/2018 urina lysis , dipst ick, auto Unknown Analyte Normal Not Available [facility] Surgery Schedule [address] [place], [address], 02/21/2018 15:02:56 02/22/20 18 02/21/2018 urina lysis , dipst ick, auto Unknown Analyte Negati ve Not Available [facility] Surgery Schedule [address] [place], [address], 02/21/2018 15:02:56 02/22/20 18 02/21/2018 urina lysis , dipst ick, auto Unknown Analyte 4 mg/dl Not Available [facility] Surgery Schedule [address] [place], [address], 02/21/2018 15:02:56 02/22/20 18 02/21/2018 urina lysis , dipst ick, auto Unknown Analyte 1 mg/dl (+) Not Available [facility] Surgery Schedule [address] [place], [address], 02/21/2018 15:02:56 02/22/20 18 02/21/2018 urina lysis , dipst ick, auto Unknown Analyte 50 Issac/ul Not Available [facility] Surgery Schedule [address] [place] [address], [address], 02/21/2018 15:02:56 02/22/20 18 02/21/2018 urina lysis , dipst ick, auto Unknown Analyte Clean Catch Not Available [facility] Surgery Schedule [address] [place] [address], [address], 02/21/2018 15:02:56 02/22/20 18 02/21/2018 urina lysis , dipst ick, auto Unknown Analyte Automa ludin Not Available [facility] Surgery Schedule [address] [place] [address], [address], 02/21/2018 15:02:56 03/17/20 18 03/17/2018 cultu re, urine results [facility] e: CCUR Colle cted: 03/17 09:09 Site: Corine shena : 03/17 11:26 URINE SCREE N(CUL TURE) FINAL 03/21 11:53 03/21 No growt h day 4. Not Available [facility] Laboratory [address] [place] [address], [address], 03/21/2018 11:53:16 03/17/20 18 03/17/2018 urina lysis , dipst ick, auto Unknown Analyte Yellow Not Available [facility] [place], [address], 03/17/2018 09:03:16 03/17/20 18 03/17/2018 urina lysis , dipst ick, auto Unknown Analyte Clear Not Available [facility] Urology [address] [place] [address], [address], 03/17/2018 09:03:16 03/17/20 18 03/17/2018 urina lysis , dipst ick, auto Unknown Analyte 1.010 Not Available [facility]rology [address] [place] [address], [address], 03/17/2018 09:03:16 03/17/20 18 03/17/2018 urina lysis , dipst ick, auto Unknown Analyte 7.0 Not Available [facility] Urology [address], [address], 03/17/2018 09:03:16 03/17/20 18 03/17/2018 urina lysis , dipst ick, auto Unknown Analyte 500 Kiko/ul (++) Not Available [facility] [address], [address], 03/17/2018 09:03:16 03/17/20 18 03/17/2018 urina lysis , dipst ick, auto Unknown Analyte Negati ve Not Available [facility] [address], [address], 03/17/2018 09:03:16 03/17/20 18 03/17/2018 urina lysis , dipst ick, auto Unknown Analyte Negtiv e Not Available [facility] [address], [address], 03/17/2018 09:03:16 03/17/20 18 03/17/2018 urina lysis , dipst ick, auto Unknown Analyte Normal Not Available [facility] [place], [address], 03/17/2018 09:03:16 03/17/20 18 03/17/2018 urina lysis , dipst ick, auto Unknown Analyte Not Available [facility] [place], [address], 03/17/2018 09:03:16 03/17/20 18 03/17/2018 urina lysis , dipst ick, auto Unknown Analyte Negati ve Not Available [facility] [address] [place], [address], 03/17/2018 09:03:16 03/17/20 18 03/17/2018 urina lysis , dipst ick, auto Unknown Analyte Normal Not Available [facility] [place], [address], 03/17/2018 09:03:16 03/17/20 18 03/17/2018 urina lysis , dipst ick, auto Unknown Analyte Negati ve Not Available [facility] [place], [address], 03/17/2018 09:03:16 03/17/20 18 03/17/2018 urina lysis , dipst ick, auto Unknown Analyte 250 Issac/ul Not Available [facility] [address] [place], [address], 03/17/2018 09:03:16 03/17/20 18 03/17/2018 urina lysis , dipst ick, auto Unknown Analyte Clean Catch Not Available [facility] [place], [address], 03/17/2018 09:03:16 03/17/20 18 03/17/2018 urina lysis , dipst ick, auto Unknown Analyte Automa ludin Not Available [facility]rology [address] [place], [address], 03/17/2018 09:03:16 06/21/20 18 06/21/2018 urina lysis , dipst ick, auto Unknown Analyte Yellow Not Available [facility] [place], [address], 06/21/2018 09:05:06 06/21/20 18 06/21/2018 urina lysis , dipst ick, auto Unknown Analyte Clear Not Available [facility] [place], [address], 06/21/2018 09:05:06 06/21/20 18 06/21/2018 urina lysis , dipst ick, auto Unknown Analyte 1.025 Not Available [facility] [address] [place], [address], 06/21/2018 09:05:06 06/21/20 18 06/21/2018 urina lysis , dipst ick, auto Unknown Analyte 5.0 Not Available [facility] [place], [address], 06/21/2018 09:05:06 06/21/20 18 06/21/2018 urina lysis , dipst ick, auto Unknown Analyte Negati ve Not Available [facility] [address] [place], [address], 06/21/2018 09:05:06 06/21/20 18 06/21/2018 urina lysis , dipst ick, auto Unknown Analyte Negati ve Not Available [facility] [address] [place], [address], 06/21/2018 09:05:06 06/21/20 18 06/21/2018 urina lysis , dipst ick, auto Unknown Analyte Negtiv e Not Available [facility]rology [address] [place] [address], [address], 06/21/2018 09:05:06 06/21/20 18 06/21/2018 urina lysis , dipst ick, auto Unknown Analyte Normal Not Available [facility] [place], [address], 06/21/2018 09:05:06 06/21/20 18 06/21/2018 urina lysis , dipst ick, auto Unknown Analyte Negati ve Not Available [facility] [address] [place] [address], [address], 06/21/2018 09:05:06 06/21/20 18 06/21/2018 urina lysis , dipst ick, auto Unknown Analyte 1 mg/dl Not Available [facility] [address] [place] [address], [address], 06/21/2018 09:05:06 06/21/20 18 06/21/2018 urina lysis , dipst ick, auto Unknown Analyte 1 mg/dl (+) Not Available [facility] [address] [place] [address], [address], 06/21/2018 09:05:06 06/21/20 18 06/21/2018 urina lysis , dipst ick, auto Unknown Analyte Negati ve Not Available [facility] [address] [place] [address], [address], 06/21/2018 09:05:06 06/21/20 18 06/21/2018 urina lysis , dipst ick, auto Unknown Analyte Clean Catch Not Available [facility] [address] [place] [address], [address], 06/21/2018 09:05:06 06/21/20 18 06/21/2018 urina lysis , dipst ick, auto Unknown Analyte Automa ludin Not Available [facility] [address] [place] [address], [address], 06/21/2018 09:05:06 06/22/20 19 06/22/2019 PSA, serum [...] absen ce of disea se. Not Available [facility] Laboratory [address] [place] [address], [address], 06/22/2019 09:44:31 06/22/2006/22/2019 urina lysis , micro scopi c RBC, urine 3-10 0-2/hp f abnormal Not Available [facility] Laboratory [address] [place] [address], [address], 06/22/2019 11:39:55 06/22/2006/22/2019 urina lysis , micro scopi c squamous epi. cells OCCASI ONAL 0-5/hp f normal Not Available [facility] [address] [place] [address], [address], 06/22/2019 11:39:55 06/22/2006/22/2019 urina lysis , dipst ick, auto Unknown Analyte Yellow Not Available [facility] [address] [place], [address], 06/22/2019 09:08:28 06/22/2006/22/2019 urina lysis , dipst ick, auto Unknown Analyte Clear Not Available [facility] [address] [place], [address], 06/22/2019 09:08:28 06/22/2006/22/2019 urina lysis , dipst ick, auto Unknown Analyte 1.020 Not Available [facility] [address] [place] [address], [address], 06/22/2019 09:08:28 06/22/2006/22/2019 urina lysis , dipst ick, auto Unknown Analyte 5.0 Not Available [facility] [address] [place], [address], 06/22/2019 09:08:28 06/22/2006/22/2019 urina lysis , dipst ick, auto Unknown Analyte Negati ve Not Available [facility] [address] [place] [address], [address], 06/22/2019 09:08:28 06/22/2006/22/2019 urina lysis , dipst ick, auto Unknown Analyte Negati ve Not Available [facility] [address] [place] [address], [address], 06/22/2019 09:08:28 06/22/2006/22/2019 urina lysis , dipst ick, auto Unknown Analyte Negtiv e Not Available [facility] [address] [place] [address], [address], 06/22/2019 09:08:28 06/22/2006/22/2019 urina lysis , dipst ick, auto Unknown Analyte Normal Not Available [facility] [address] [place] [address], [address], 06/22/2019 09:08:28 06/22/2006/22/2019 urina lysis , dipst ick, auto Unknown Analyte Negati ve Not Available [facility] [address] [place] [address], [address], 06/22/2019 09:08:28 06/22/2006/22/2019 urina lysis , dipst ick, auto Unknown Analyte Normal Not Available [facility]rology [address] [place] [address], [address], 06/22/2019 09:08:28 06/22/2006/22/2019 urina lysis , dipst ick, auto Unknown Analyte Negati ve Not Available [facility] [address] [place], [address], 06/22/2019 09:08:28 06/22/20 19 06/22/2019 urina lysis , dipst ick, auto Unknown Analyte 50 Issac/ul Not Available [facility] [address] [place] [address], [address], 06/22/2019 09:08:28 06/22/20 19 06/22/2019 urina lysis , dipst ick, auto Unknown Analyte Clean Catch Not Available [facility] [address] [place] [address], [address], 06/22/2019 09:08:28 06/22/20 19 06/22/2019 urina lysis , dipst ick, auto Unknown Analyte Automa ludin Not Available [facility] [address], [address], 06/22/2019 09:08:28 06/26/20 19 06/26/2019 creat inine , blood creatinine, fs mg/dL M 0.7-1. 3 F0.6-1 .1 Not Available [facility] [address] [place] [address], [address], 06/26/2019 09:15:52 07/07/20 19 07/07/2019 bun (bloo d urea nitro gen), serum or plasm a blood urea nitrogen 17 mg/dL 6-20 normal Not Available [facility] Laboratory [address] [place] [address], [address], 07/07/2019 12:34:39 07/07/20 19 07/07/2019 creat inine , serum or plasm a creatinine 1.15 mg/dL 0.70-1 .25 normal Not Available [facility] [address] [place] [address], [address], 07/07/2019 12:34:40 07/19/20 07/19/2019 cytol ogy, non-g [...] 15:09 Page 1 of 1 Not Available [facility] Laboratory [address] [place] [address], [address], 07/21/2019 15:10:54 07/19/20 19 07/19/2019 urina lysis , dipst ick, auto Unknown Analyte Yellow Not Available [facility] Surgery Schedule [address] [place] [address], [address], 07/19/2019 13:40:38 07/19/20 19 07/19/2019 urina lysis , dipst ick, auto Unknown Analyte Clear Not Available [facility] Surgery Schedule [address] [place], [address], 07/19/2019 13:40:38 07/19/2007/19/2019 urina lysis , dipst ick, auto Unknown Analyte 1.020 Not Available [facility] Surgery Schedule [address] [place], [address], 07/19/2019 13:40:38 07/19/20 19 07/19/2019 urina lysis , dipst ick, auto Unknown Analyte 5.0 Not Available [facility] Surgery Schedule [address] [place], [address], 07/19/2019 13:40:38 07/19/20 19 07/19/2019 urina lysis , dipst ick, auto Unknown Analyte Negati ve Not Available [facility] Surgery Schedule [address] [place], [address], 07/19/2019 13:40:38 07/19/20 19 07/19/2019 urina lysis , dipst ick, auto Unknown Analyte Negati ve Not Available [facility] Surgery Schedule [address] [place], [address], 07/19/2019 13:40:38 07/19/2007/19/2019 urina lysis , dipst ick, auto Unknown Analyte Negtiv e Not Available [facility] Surgery Schedule [address] [place], [address], 07/19/2019 13:40:38 07/19/2007/19/2019 urina lysis , dipst ick, auto Unknown Analyte Normal Not Available [facility] Surgery Schedule [address] [place], [address], 07/19/2019 13:40:38 07/19/2007/19/2019 urina lysis , dipst ick, auto Unknown Analyte Negati ve Not Available [facility] Surgery Schedule [address] [place] [address], [address], 07/19/2019 13:40:38 07/19/20 19 07/19/2019 urina lysis , dipst ick, auto Unknown Analyte Normal Not Available [facility] Surgery Schedule [facility] [place], [address], 07/19/2019 13:40:38 07/19/20 19 07/19/2019 urina lysis , dipst ick, auto Unknown Analyte Negati ve Not Available [facility] Surgery Schedule [address] [place] [address], [address], 07/19/2019 13:40:38 07/19/20 19 07/19/2019 urina lysis , dipst ick, auto Unknown Analyte 50 Issac/ul Not Available [facility] Surgery Schedule [address] [place], [address], 07/19/2019 13:40:38 07/19/20 19 07/19/2019 urina lysis , dipst ick, auto Unknown Analyte Clean Catch Not Available [facility] Surgery Schedule [address] [place], [address], 07/19/2019 13:40:38 07/19/20 19 07/19/2019 urina lysis , dipst ick, auto Unknown Analyte Automa ludin Not Available [facility] Surgery Schedule [address] [place], [address], 07/19/2019 13:40:38 06/25/2006/25/2020 urina lysis , dipst ick Unknown Analyte Straw Not Available [facility] [address] [place] [address], [address], 06/25/2020 08:58:13 06/25/2006/25/2020 urina lysis , dipst ick Unknown Analyte Clear Not Available [facility] [address] [place] [address], [address], 06/25/2020 08:58:13 06/25/2006/25/2020 urina lysis , dipst ick Unknown Analyte 1.030 Not Available [facility] [address] [place] [address], [address], 06/25/2020 08:58:13 06/25/2006/25/2020 urina lysis , dipst ick Unknown Analyte 1.003 - 1.035 Not Available [facility] [address] [place] [address], [address], 06/25/2020 08:58:13 06/25/2006/25/2020 urina lysis , dipst ick Unknown Analyte 5.0 Not Available [facility] [address] [place] [address], [address], 06/25/2020 08:58:13 06/25/202020 urina lysis , dipst ick Unknown Analyte 5.0 - 8.0 Not Available [facility] [address] [place] [address], [address], 06/25/2020 08:58:13 06/25/2006/25/2020 urina lysis , dipst ick Unknown Analyte Negati ve Not Available [facility] [address], [address], 06/25/2020 08:58:13 06/25/2006/25/2020 urina lysis , dipst ick Unknown Analyte Negati ve Not Available [facility] [address], [address], 06/25/2020 08:58:13 06/25/2006/25/2020 urina lysis , dipst ick Unknown Analyte Negati ve Not Available [address], [address], 06/25/2020 08:58:13 06/25/2006/25/2020 urina lysis , dipst ick Unknown Analyte Negati ve Not Available [address], [address], 06/25/2020 08:58:13 06/25/2006/25/2020 urina lysis , dipst ick Unknown Analyte Negati ve Not Available [facility] [address], [address], 06/25/2020 08:58:13 06/25/2006/25/2020 urina lysis , dipst ick Unknown Analyte Negati ve - Trace Not Available [address], [address], 06/25/2020 08:58:13 06/25/2006/25/2020 urina lysis , dipst ick Unknown Analyte Normal Not Available [facility] [address] [place], [address], 06/25/2020 08:58:13 06/25/2006/25/2020 urina lysis , dipst ick Unknown Analyte Normal Not Available [facility] [address] [place] [address], [address], 06/25/2020 08:58:13 06/25/2006/25/2020 urina lysis , dipst ick Unknown Analyte Negati ve Not Available [facility] [address] [place] [address], [address], 06/25/2020 08:58:13 06/25/2006/25/2020 urina lysis , dipst ick Unknown Analyte Negati ve Not Available [facility] [address] [place] [address], [address], 06/25/2020 08:58:13 06/25/2006/25/2020 urina lysis , dipst ick Unknown Analyte Normal Not Available [facility] [address] [place] [address], [address], 06/25/2020 08:58:13 06/25/2006/25/2020 urina lysis , dipst ick Unknown Analyte Normal - 1mg/dl Not Available [facility] [address] [place] [address], [address], 06/25/2020 08:58:13 06/25/2006/25/2020 urina lysis , dipst ick Unknown Analyte Negati ve Not Available [facility] [address] [place] [address], [address], 06/25/2020 08:58:13 06/25/2006/25/2020 urina lysis , dipst ick Unknown Analyte Negati ve Not Available [facility] [address] [place] [address], [address], 06/25/2020 08:58:13 06/25/20 20 06/25/2020 urina lysis , dipst ick Unknown Analyte Negati ve Not Available [facility] [address], [address], 06/25/2020 08:58:13 06/25/20 20 06/25/2020 urina lysis , dipst ick Unknown Analyte Negati ve Not Available [address], [address], 06/25/2020 08:58:13 06/25/20 20 06/25/2020 urina lysis , dipst ick Unknown Analyte Clean Catch Not Available [address], [address], 06/25/2020 08:58:13 06/25/20 20 06/25/2020 urina lysis , dipst ick Unknown Analyte Visual Not Available [facility] [address], [address], 06/25/2020 08:58:13 07/07/20 19 07/07/2019 CT, abdom en + pelvi s, w/wo contr ast [address] [address] Paticlarisa t Name: CARLITA Ken t : [birth year] 51 Paticlarisa t 4 Orderi [facility] er: LUIS ARMANDO GRANT OR EXAM DATE: 2018 EXAM: CT [facility] TECHNI QUE: Multip le axial CT images of the abdome n were obtain ed before and in the combin ed nephro graphi c and excret ory phases after a split bolus IV inject ion of Optira y320 (1 x 100ml bottle [facility] 0019-1 323-11 ). Bowel was marked [...] Bonilla MD on 019 1:53 PM [email or web address] [facility] Rad[facility] [address] [place], [address], 07/10/2019 08:31:12 Result Notes None recorded. Problems Name Problem SNOMED Code Status Onset Date Resolution Date Notes Provider Name and Address Organization Details Recorded Time Mixed conductiv e AND sensorine ural hearing loss 12167577 Active 2015 From Automated Load;Prov ider: Dong Fournier;Yeyo tatus: Active Not Available [facility] 7 06:42:18 Lower urinary tract symptoms due to benign prostatic hypertrop hy 53709074557 101 Active 2014 From Automated Load;Prov ider: Luis Armando Lee;St atus: Active Not Available [facility] 6 07:50:29 Prostate specific antigen above reference range 544004908 Active 2014 From Automated Load;Prov ider: Luis Armando Lee;St atus: Active Not Available [facility] 6 07:50:29 Microscop ic hematuria 684497004 Active 2014 From Automated Load;Prov ider: Luis Armando Lee;St atus: Active Not Available [facility] 6 07:50:29 Acute non-suppu rative serous otitis media 550573074 Active 2015 From Automated Load;Prov ider: Dong Fournier;S tatus: Active Not Available [facility] 6 07:50:29 Conductiv e hearing loss 32057102 Active 2015 From Automated Load;Prov ider: Dong Fournier;S tatus: Active Not Available [facility] 6 07:50:29 Problem Notes None recorded. Procedures Surgical History Date Name Laterality Status Provider Name and Address Organization Details Recorded Time 0 Post Void Residual; Ultrasound completed Gunjan Kapadia [facility] 06/25/2020 09:08:12 9 Cystoscopy - male completed LUIS ARMANDO LEE MD [address] [place], [address], [facility] 07/19/2019 14:20:36 09/05/201 9 Post Void Residual; Ultrasound completed Tahmina [facility] 06/22/2019 09:08:21 8 Post Void Residual; Ultrasound completed Xiomara Garibay [facility] 06/21/2018 09:08:03 8 Post Void Residual; Ultrasound completed Jacquie Kiser [facility] 03/17/2018 09:08:30 8 Uroflowmetry; Complex completed [facility] 02/28/2018 09:30:39 8 Cystoscopy - male completed LUIS ARMANDO LEE MD [address] [place], [address], [facility] 02/21/2018 08:28:57 8 Post Void Residual; Ultrasound completed Lilygarry Parham [facility] 02/01/2018 09:42:56 7 Post Void Residual; Ultrasound completed Tahmina [facility] 08/03/2017 09:02:42 7 EXTRA CORPOREAL SHOCK WAVE LITHOTRIPSY (SURG) completed LUIS ARMANDO LEE MD [address] [place], [address], [facility] 03/22/2017 12:37:31 7 Post Void Residual; Ultrasound completed Bhargavi Ellison [facility] 01/25/2017 11:08:55 6 Post Void Residual; Catheter completed Bhargavi Ellison [facility] 10/15/2016 08:35:18 6 Audiogram completed RODRIGO ARRIOLA [address] [place], [address], [facility] 10/07/2016 10:20:39 Imaging Results Imaging Date Name Status LastModified by Organiz ation Details LastModified Time 07/07/2019 CT, abdomen + pelvis, w/wo contrast completed [email or web address] [facility] [address] [place], [address], 07/10/2019 08:31:12 Procedure Notes None recorded. Medical Equipment None Reported. Allergies Allergen ID Allergen Name Allergen Category Reaction Reaction Severity Criticality Documentation Date Start Date Code Code System Note Provider Name and Address Organization Details Recorded Time [id number] Substance with sulfonami de structure and antibacte rial mechanism of action (substanc e) medicatio n Not available Not available Not available 09/11/20162010 66774 8003 SNOMED Comme nt: Creat ed By: Ailyn reynaCre ated Date: 2010 1:02: 38 PM; Not Available [facility] 02:54:27 Medications Name Sig Start Date [...] Updated DateTime 03/17/2018 180.34 cm 27.2 kg/m2 58245.51 g Jacquie Kiser [facility] 03/17/2018 09:02:58 Date Recorded Body height Body mass index (BMI) Body weight Provider Name and Address Organization Details Last Updated DateTime 06/21/2018 180.34 cm 27.2 kg/m2 41491.51 g Xiomara Garibay [facility] 06/21/2018 09:04:49 Date Recorded Body height Body mass index (BMI) Body weight Body temperature Provider Name and Address Organization Details Last Updated DateTime 06/22/2019 180.34 cm 27.2 kg/m2 52130.51 g 98 [degF] Tahmina Fragoso [facility] 06/22/2019 09:05:56 Date Recorded Body weight Body mass index (BMI) Body height Provider Name and Address Organization Details Last Updated DateTime 06/25/2020 22351.51 g 27.2 kg/m2 180.34 cm Gunjan Kapadia [facility] 06/25/2020 08:56:38 Social History Question Answer Notes LastModified by Organizat ion Details LastModified Time Tobacco Smoking Status Never Smoker Karen bourne [facility] 10/07/2016 09:19:00 What Is Your Level Of Alcohol Consumption? Occasional [email or web address] Information not available 06/25/2020 How Much Tobacco Do You Chew? None [email or web address] Information not available 06/25/2020 Do You Or Have You Ever Used E-cigarettes Or Vape? Never Used Electronic Cigarettes [email or web address] Information not available 06/25/2020 What Was The Date Of Your Most Recent Tobacco Screening? 06/21/2018 [id number] Information not available 12/05/2019 Do You Or Have You Ever Used Smokeless Tobacco? Never Used Smokeless Tobacco [email or web address] Information not available 06/25/2020 How Much Tobacco Do You Smoke? No [email or web address] Information not available 06/25/2020 How Many Years Have You Smoked Tobacco? 0 [email or web address] Information not available 06/25/2020 Sex: Unknown Functional Status None recorded. Mental Status None recorded. Family History Nothing Reported. Medical History Condition Response High Cholesterol Y Hypertension Y Past Encounters Encounter ID Performer Location Encounter Start Date Encounter Closed Date Diagnosis/Indication Diagnosis SNOMED-CT Code Diagnosis ICD10 Code Diagnosis Note [id number] DONG FOURNIER MD [facility] [address] [place] [address] 1 10/07/2016 08:57:35 10/07/2016 12:06:38 Chronic serous otitis media 89472695 H65.[address] and patent. Hearing improved.a udiogram reviewed Acute sinusitis 59954949 J01.90 [id number] DONG FOURNIER MD [facility] [address] [place] [address] 1 10/07/2016 09:54:51 10/07/2016 10:21:42 Sensorineural hearing loss of bilateral ears 343701351 H90.3 [id number] LUIS ARMANDO LEE MD [facility]OLOGY [facility] [address] [place] [address] 1 10/15/2016 07:35:58 10/15/2016 09:12:15 Lower urinary tract symptoms due to benign prostatic hypertrophy 3789202745 9101 N40.1 Benign pro static hyperplasia 429366088 N40.1 Microscopic hematuria 19 5984236 R31.21 Incomplete emptying of urinary bladder 335141012 R39.14 [id number] LUIS ARMANDO LEE MD [facility]OLOGY [facility] [address] [place] [address] 1 01/25/2017 10:48:50 01/25/2017 12:53:18 Benign prostatic hyperplasia with outflow obstruction 494758230 N40.1 Microscopic hematuria 19 9247751 R31.21 [id number] DONG FOURNIER MD [facility] [address] [place] [address] 1 01/25/2017 10:48:50 01/25/2017 12:53:18 Chronic serous otitis media 02152546 H65.[address] and patent. f/u 6 mo [id number] LUIS ARMANDO LEE MD UROLOGY [facility] [address] [place] [address] 1 03/08/2017 07:58:58 03/08/2017 09:23:26 Ureteric stone 23765478 N20.1 [id number] LUIS ARMANDO LEE MD UROLOGY [facility] [address] [place] [address] 1 04/01/2017 09:27:16 04/01/2017 10:33:05 Kidney stone 59741788 N20.0 [id number] LUIS ARMANDO LEE MD UROLOGY [facility] [address] [place] [address] 1 08/03/2017 08:41:11 08/03/2017 09:54:35 Benign prostatic hyperplasia with outflow obstruction 606812725 N40.1 Incomplete emptying of urinary bladder 787629192 R39.14 History of calculus of kidney 099977777 Z87.709 [id number] DONG FOURNIER MD [facility] [address] [place] [address] 1 08/11/2017 09:03:32 08/11/2017 09:36:45 Chronic serous otitis media 96135215 H65.23 both tubes extruded and tm's look fine. No fluid present. F/U prn [id number] LUIS ARMANDO LEE MD UROLOGY [facility] [address] [place] [address] 1 02/01/2018 09:03:07 02/01/2018 10:09:37 Benign prostatic hyperplasia with outflow obstruction 659499978 N40.1 Incomplete emptying of urinary bladder 096440673 R39.14 [id number] LUIS ARMANDO LEE MD SURGERY SCHEDULE [address] [place] [address] 1 02/21/2018 06:32:25 02/21/2018 06:32:56 [id number] LUIS ARMANDO LEE MD UROLOGY [facility] [address] [place] [address] 1 02/28/2018 09:08:03 03/01/2018 15:54:44 Lower urinary tract symptoms due to benign prostatic hypertrophy 9539436936 9101 N40.1 [id number] LUIS ARMANDO LEE MD UROLOGY [address] [place] [address] 1 03/17/2018 08:50:49 03/17/2018 09:35:44 Acute urinary tract infection 796970438 N39.0 Benign pro static hyperplasia with outflow obstruction 646622446 N40.1 Incomplete emptying of urinary bladder 463516793 R39.14 [id number] LUIS ARMANDO LEE MD UROLOGY [facility] [address] [place] [address] 1 06/21/2018 08:55:40 06/21/2018 09:57:45 Benign prostatic hyperplasia with outflow obstruction 123736621 N40.1 [id number] LUIS ARMANDO LEE MD UROLOGY [facility] [address] [place] [address] 1 06/22/2019 08:39:54 06/22/2019 09:24:17 Benign prostatic hyperplasia with outflow obstruction 571752667 N40.1 Blood in urine 35609072 R31.9 [id number] LUIS ARMANDO LEE MD SURGERY SCHEDULE [address] [place] [address] 1 07/19/2019 12:34:50 07/19/2019 12:36:34 [id number] LUIS ARMANDO LEE MD UROLOGY [facility] [address] [place] [address] 1 06/25/2020 08:51:24 06/25/2020 10:03:45 Benign prostatic hyperplasia with outflow obstruction 985594514 N40.1 Microscopic hematuria 19 8779709 R31.21 Health Concerns Section Related Observation LastModified by Organization Detai ls LastModified Time None Recorded Concern Status LastModified by Organization Details LastModified Time None Recorded Advance Directives Directive None Recorded Payers Insurance Date Sequence Insurance Name Policy Number Policy [place] Covered Member ID [place] Member ID Guarantor Name 06/21/2018 2 [facility] (MEDICARE REPLACEMENT/A DVANTAGE - PPO) [id number] Carlita Bearden [id number] Carlita Bearden 06/22/2020 2 [place] Carlita Bearden [id number] Carlita Bearden 06/25/2020 1 [place] [id number] Carlita Bearden II [id number] Carlita Bearden 04/22/2018 2 [place] Carlita Bearden [id number] Carlita Bearden Notes Date Note Type Note [...] frequency or dysuria. LUIS ARMANDO LEE MD [address] [place] [address], [phone], [facility] 03/17/2018 09:22:08 06/21/2018 text/html Mr. Bearden returns today for follow-up of BPH with severe incomplete bladder emptying. He underwent greenlight laser vaporization of the prostate in February. His preoperative residuals were over 500 mL. Overall he is very pleased. He has occasional mild postvoid dribbling. No dysuria or hematuria. LUIS ARMANDO LEE MD [facility] [place], [address], [facility] 06/21/2018 09:16:40 06/22/2019 text/html Mr. Bearden returns [...] hematuria. No dysuria. LUIS ARMANDO LEE MD [facility] [place], [address], [facility] 06/22/2019 09:22:52 06/25/2020 text/html Mr. Bearden returns [...] a year ago. LUIS ARMANDO LEE MD [address] [place], [address], [facility] 06/25/2020 09:21:17
--- NOTE | 2025-02-22 09:36 | XR_ITS ---
FINAL REPORT CLINICAL HISTORY: Rt Knee pain FINDINGS: AP, lateral and oblique views of the right knee were obtained. There is no prior exam for comparison. There is no acute osseous abnormality of the right knee. 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 The soft tissues are normal. There is a large joint effusion. IMPRESSION: Large joint effusion. Consider MRI. Reviewed, Interpreted and Dictated by Radha Dasilva MD Transcribed by Yasemin Moore Authenticated and [facility]
== END 2025-02-22 23:59 | disposition home or self-care (01) ==
LOC: RAD 09:33
PROVIDERS: PCP Internal Medicine; Visit Provider Physician Assistant
DX: M25.461 Effusion, right knee (principal); M25.561 Pain in right knee
CPT/HCPCS: 73562

== ENCOUNTER 2025-03-02 07:41 | Outpatient (CLI) | payer BC, MEDICARE, SELFPAY ==
--- OUTSIDE RECORDS SUMMARY | 2025-03-02 07:44 | XMS_ITS | Data Portability ---
Author Organization [facility] and [facility] Address [address] [place] [address] Assessment No assessment recorded. Plan of Treatment [...] CSF 64 mg/dL 15-45 high Not Available [facility] (Lab Registration) [address], [place], [address], 09/08/2022 13:00:50 09/08/20 22 09/08/2022 TOTAL PROTE IN CSF note Unles s other peace noted testi ng perfo rmed at: [facility] [address] [place] [place] [address] [phone] Otis pace MD CLIA: [id number] Not Available [facility] (Lab Registration) [place], [address], 09/08/2022 13:00:50 09/08/20 22 09/08/2022 GLUCO SE CSF QUANT glucose CSF quant 69 mg/dL 40-75 Not Available [facility] (Lab Registration) [address] [place], [address], 09/08/2022 13:00:51 09/08/20 22 09/08/2022 GLUCO SE CSF QUANT note Unles s other peace noted testi ng perfo rmed at: [facility] [address] [place] [address] [phone] Otis pace MD CLIA: [id number] Not Available [facility] (Lab Registration) [address] [place], [address], 09/08/2022 13:00:51 09/08/20 22 09/08/2022 CELL COUNT CSF CSF tube # TUBE # 3 Not Available [facility] (Lab Registration) [address] [place], [address], 09/08/2022 13:38:05 09/08/2009/08/2022 CELL COUNT CSF CSF color COLORL ESS colorl ess Not Available [facility] (Lab Registration) [address] [place], [address], 09/08/2022 13:38:05 09/08/2009/08/2022 CELL COUNT CSF CSF apperance CLEAR clear Not Available [facility] (Lab Registration) [address] [place], [address], 09/08/2022 13:38:05 09/08/20 22 09/08/2022 CELL COUNT CSF volume 35 mL Not Available [facility] (Lab Registration) [address] [place], [address], 09/08/2022 13:38:05 09/08/2009/08/2022 CELL COUNT CSF CSF WBC count 13 /uL 0-5 high Not Available [facility] (Lab Registration) [address] [place], [address], 09/08/2022 13:38:05 09/08/20 22 09/08/2022 CELL COUNT CSF CSF RBC count 2 /uL 0-1 high Not Available [facility] (Lab Registration) [address] [place], [address], 09/08/2022 13:38:05 09/08/20 22 09/08/2022 CELL COUNT CSF polynuclear 0 % Not Available [facility] (Lab Registration) [address] [place], [address], 09/08/2022 13:38:05 09/08/20 22 09/08/2022 CELL COUNT CSF mononuclear 100 % Not Available [facility] (Lab Registration) [address] [place], [address], 09/08/2022 13:38:05 09/08/2009/08/2022 CELL COUNT CSF note Unles s other peace noted testi ng perfo rmed at: [facility] [address] [place] [address] [phone] Otis pace MD CLIA: [id number] Not Available [facility] (Lab Registration) [address] [place], [address], 09/08/2022 13:38:05 09/08/20 22 09/08/2022 GRAM STAIN BODY FLUID specimen source CSF Not Available [facility] (Lab Registration) [address] [place], [address], 09/08/2022 13:58:51 09/08/2009/08/2022 GRAM STAIN BODY FLUID gram stain organism 1 NONE SEEN Not Available [facility] (Lab Registration) [address] [place], [address], 09/08/2022 13:58:51 09/08/20 22 09/08/2022 GRAM STAIN BODY FLUID note Unles s other peace noted testi ng perfo rmed at: [facility] [address] [place] [address] [phone] Otis pace MD CLIA: [id number] Not Available [facility] (Lab Registration) [address] [place], [address], 09/08/2022 13:58:51 09/08/20 22 09/08/2022 CULTU RE CSF results MRB 09-09 836 No Growt h at Day 1 MRB 09-10 600 No Growt h at Day 2 LT 09-11 534 No Growt h at Day 3 Not Available [facility] (Lab Registration) [address] [place], [address], 09/11/2022 05:35:53 09/08/20 22 09/08/2022 CULTU RE CSF note Unles s other peace noted testi ng perfo rmed at: [facility] [address] [place] [address] [phone] Otis pace MD CLIA: [id number] Not Available [facility] (Lab Registration) [address] [place], [address], 09/11/2022 05:35:53 09/08/20 22 09/08/2022 VDRL CSF QUAL note Unles s other peace noted testi ng perfo rmed at: [facility] [address] [place] [address] [phone] Otis pace MD CLIA: [id number] Not Available [facility] (Lab Registration) [address] [place], [address], 09/12/2022 04:08:24 09/08/2009/12/2022 VDRL CSF QUAL vdrl CSF Not Available [facility] (Lab Registration) [address] [place], [address], 09/12/2022 04:08:24 09/08/20 22 09/08/2022 MULTI PLE SCLER OSIS( MS) PROFI LE note Unles s other peace noted testi ng perfo rmed at: [facility] jamil gonzalez [address] [place] [address] [phone] Otis pace MD CLIA: [id number] Not Available [facility] (Lab Registration) [address] [place], [address], 09/14/2022 15:10:12 09/08/20 22 09/14/2022 MULTI PLE SCLER OSIS( MS) PROFI LE albumin TNP g/dL Test not perfo rmed. No serum gel recei shena. Conta ct: Talisha somers Jasonme ter 09-11 Not Available [facility] (Lab Registration) [address] [place], [address], 09/14/2022 15:10:12 09/08/20 22 09/14/2022 MULTI PLE SCLER OSIS( MS) PROFI LE immunoglobul in g, qn, serum TNP mg/dL Test not perfo rmed. No serum gel recei shena. Conta ct: Dinotrevor na Vanme ter 09-11 SENT TO REFER ENCE LAB Not Available [facility] (Lab Registration) [address] [place], [address], 09/14/2022 15:10:12 09/08/20 22 09/14/2022 MULTI PLE SCLER OSIS( MS) PROFI LE albumin, CSF 28 mg/dL 15-55 Not Available [facility] (Lab Registration) [address] [place], [address], 09/14/2022 15:10:12 09/08/20 22 09/14/2022 MULTI PLE SCLER OSIS( MS) PROFI LE IgG, quant, CSF 2.0 mg/dL 0.0-10 .3 Not Available [facility] (Lab Registration) [address] [place], [address], 09/14/2022 15:10:12 09/08/20 22 09/14/2022 MULTI PLE SCLER OSIS( MS) PROFI LE CSF IgG index TNP Unabl e to calcu late resul t since non-n umeri c resul t obtai glenn for compo nent test. Not Available [facility] (Lab Registration) [address] [place], [address], 09/14/2022 15:10:12 09/08/20 22 09/14/2022 MULTI PLE SCLER OSIS( MS) PROFI LE oligoclonal banding -serum TNP Test not perfo rmed. No serum gel recei shena. Conta ct: Talisha yonis Del Angel ter 09-11 Not Available [facility] (Lab Registration) [address] [place], [address], 09/14/2022 15:10:12 09/08/20 22 09/14/2022 MULTI PLE [...] break down >100 [facility] [address] [id number] [facility] Lab Direc tor: Cain patton PhD, Phone : [phone] Not Available [facility] (Lab Registration) [address] [place], [address], 09/14/2022 15:10:12 09/08/20 22 09/14/2022 MULTI PLE SCLER OSIS( MS) PROFI LE IgG/alb ratio, CSF 0.07 0.00-0 .25 Not Available [facility] (Lab Registration) [address] [place], [address], 09/14/2022 15:10:12 09/08/20 22 09/14/2022 MULTI PLE SCLER OSIS( MS) PROFI LE IgG, syn rate, CSF TNP mg/da y Unabl e to calcu late resul t since non-n umeri c resul t obtai glenn for compo nent test. Not Available [facility] (Lab Registration) [address], [place], [address], 09/14/2022 15:10:12 09/08/20 22 09/14/2022 MULTI PLE [...] as multi ple scler osis (MS), subac isaías encep halit is, neuro syphi lis, etc. [...] oblot ting metho dolog y. Not Available [facility] (Lab Registration) [address], [place], [address], 09/14/2022 15:10:12 09/08/20 22 09/08/2022 ANGIO TENSI N CONVE RT ENZ., CSF note Unles s other peace noted testi ng perfo rmed at: [facility] [address] [place] [address] [phone] Otis pace MD CLIA: [id number] Not Available [facility] (Lab Registration) [address] , [place], [address], 09/14/2022 18:08:47 09/08/20 22 09/14/2022 ANGIO TENSI N CONVE RT ENZ., CSF angiotensin convert enz, CSF <1.5 U/L 0.0-3. 1 Speci men Comme nt: Test( s) 28985 2-SHARON , CSF Speci men Comme nt: resul ts are label ed for resea rch purpo ses only by the Speci men Comme nt: assay 's manuf actur er. The perfo rmanc e hugo acter istic s of Speci men Comme nt: this assay have not been estab lishe d by e [facility] actur er. Speci men Comme nt: [...] at: - [facility] [place] [address] [facility] , [place] [address] Lab Direc tor: Jaelyn maldonado MD, Phone : [phone] Not Available [facility] (Lab Registration) [address], [place], [address], 09/14/2022 18:08:47 09/08/20 22 09/08/2022 LYME, LINE BLOT, CSF note Unles s other peace noted testi ng perfo rmed at: [facility] [address] [place] [address] [phone] Otis pace MD CLIA: [id number] Not Available [facility] (Lab Registration) [address] [place], [address], 09/19/2022 13:09:31 09/08/20 22 09/19/2022 LYME, LINE BLOT, CSF P93 Ab. IgG Absent Not Available [facility] (Lab Registration) [address] [place], [address], 09/19/2022 13:09:31 09/08/20 22 09/19/2022 LYME, LINE BLOT, CSF P66 Ab. IgG Absent Not Available [facility] (Lab Registration) [address] [place], [address], 09/19/2022 13:09:31 09/08/20 22 09/19/2022 LYME, LINE BLOT, CSF P58 Ab. IgG Absent Not Available [facility] (Lab Registration) [address] [place], [address], 09/19/2022 13:09:31 09/08/20 22 09/19/2022 LYME, LINE BLOT, CSF P45 Ab. IgG Absent Not Available [facility] (Lab Registration) [address] [place], [address], 09/19/2022 13:09:31 09/08/20 22 09/19/2022 LYME, LINE BLOT, CSF P41 Ab. IgG Absent Not Available [facility] (Lab Registration) [address] [place], [address], 09/19/2022 13:09:31 09/08/20 22 09/19/2022 LYME, LINE BLOT, CSF P39 Ab. IgG Absent Not Available [facility] (Lab Registration) [address] [place], [address], 09/19/2022 13:09:31 09/08/20 22 09/19/2022 LYME, LINE BLOT, CSF P30 Ab. IgG Absent Not Available [facility] (Lab Registration) [address] [place], [address], 09/19/2022 13:09:31 09/08/20 22 09/19/2022 LYME, LINE BLOT, CSF P28 Ab. IgG Absent Not Available [facility] (Lab Registration) [address] [place], [address], 09/19/2022 13:09:31 09/08/20 22 09/19/2022 LYME, LINE BLOT, CSF P23 Ab. IgG Absent Not Available [facility] (Lab Registration) [address] [place], [address], 09/19/2022 13:09:31 09/08/20 22 09/19/2022 LYME, LINE BLOT, CSF P18 Ab. IgG Absent Not Available [facility] (Lab Registration) [address] [place], [address], 09/19/2022 13:09:31 09/08/20 22 09/19/2022 LYME, LINE [...] inves tigat ional use only. Not Available [facility] (Lab Registration) [address] [place], [address], 09/19/2022 13:09:31 09/08/20 22 09/19/2022 LYME, LINE BLOT, CSF P41 Ab. IgM Absent Not Available [facility] (Lab Registration) [address], [place], [address], 09/19/2022 13:09:31 09/08/20 22 09/19/2022 LYME, LINE BLOT, CSF P39 Ab. IgM Absent Not Available [facility] (Lab Registration) [address] [place], [address], 09/19/2022 13:09:31 09/08/20 22 09/19/2022 LYME, LINE BLOT, CSF P23 Ab. IgM Absent Not Available [facility] (Lab Registration) [address] [place], [address], 09/19/2022 13:09:31 09/08/20 22 09/19/2022 LYME, LINE [...] rmed at: BN - [facility] [place] [address] [facility] , [place] [address] Lab Direc tor: Jaelyn maldonado MD, Phone : [phone] Not Available [facility] (Lab Registration) [address] [place], [address], 09/19/2022 13:09:31 09/08/20 22 09/08/2022 CULTU RE VIRUS CP note Unles s other peace noted testi ng [facility]fo [facility]med [facility]: [facility] [address] [place] [address] [phone] Otis pace MD CLIA: [id number] Not Available [facility] (Lab Registration) [address], [place], [address], 09/21/2022 09:09:43 09/08/20 22 09/21/2022 CULTU RE VIRUS CP culvircp No virus isolat ed. Perfo rmed at: [facility] [place] [address] [place] [place] [address] Lab Direc tor: Jaelyn maldonado MD, Phone : [phone] Not Available [facility] (Lab Registration) [address], [place], [address], 09/21/2022 09:09:43 09/08/20 22 09/08/2022 CRYPT OCOCC US ANTIG EN, CSF note Unles s other peace noted testi ng perfo rmed at: [facility] [address] [place] [address] [phone] Otis pace MD CLIA: [id number] Not Available [facility] (Lab Registration) [address], [place], [address], 09/22/2022 15:13:21 09/08/20 22 09/22/2022 CRYPT OCOCC US ANTIG EN, CSF cryptococcus antigen, CSF Negati ve negati ve SENT TO REFER ENCE LAB Not Available [facility] (Lab Registration) [address], [place], [address], 09/22/2022 15:13:21 09/08/20 22 09/22/2022 CRYPT OCOCC US ANTIG EN, CSF cap mandated reflex to culture Not Indica ludin Perfo rmed at: [facility] [place] [address] , [place] [address] Lab Direc tor: Jaelyn maldonado MD, Phone : [phone] Not Available [facility] (Lab Registration) [address] [place], [address], 09/22/2022 15:13:21 09/08/20 22 09/08/2022 lumba r punct ure diagn [facility] [address] [place] [address] Phone: Fax: Name: CARLITA RAM Exam Date: 2021 : [birth year] Age 67 Gender : M Access ion: [id number] Physic earnest: SAIMA MURPHY Facili ty: [facility] Facili ty HSV: Outpat ient Exam: LUMBAR [...] Thank you for referr CARLITA Carver to [facility]. Legall y authen ticate d by ANTONIO SUTTON 2021-10 13:22: 26 CC'ed Logic: Orderi ng Provid er: KATHERINE COVINGTON CC Provid er: ROSELYN OBANDO Attend ing Provid er: KATHERINE SAIMA Referr ing Provid er: KATHERINE COVINGTON Admitt ing Provid er: KATHERINE SAIMA [email or web address] [facility]Radiology[facility], [address], 09/09/2022 08:46:52 09/08/20 22 09/08/2022 lumba r punct ure (PROC ) No observ ation record ed. [email or web address] [facility]Radiology[facility], [address], 09/08/2022 13:31:57 09/16/20 22 09/08/2022 fluor o guide needl e place ment [facility] [place] [address] Phone: Fax: Name: CARLITA RAM Exam Date: 2021 : [birth year] Age 67 Gender : M Access ion: [id number] Physic earnest: SAIMA MURPHY Facili ty: [...] SAIMA Admitt ing Provid er: KATHERINE SAIMA [email or web address] (Radiology) [address] [place], [address], 09/16/2022 08:35:51 09/16/2009/08/2022 lumba r punct ure (PROC ) No observ ation record ed. [address] Centralized Scheduling [address] [place], [address], 09/16/2022 08:35:27 Result Notes None recorded. Procedures Surgical History Date Name Laterality Status Provider Name and Address Organization Details Recorded Time prostatectomy completed Joycealexandria [place] [facility] 09/09/2022 09:14:22 Cholecystectomy completed Joycealexandria [place] - [facility] 09/09/2022 09:14:30 open stone operation on kidney or renal pelvis completed Joycealexandria [place] - [facility] - [facility] 09/09/2022 09:14:41 procedure on eye completed Jocyealexandria [place] - [facility] - [facility] [place] 09/09/2022 09:15:06 Back Surgery completed Joycealexandria [place] - [facility] - [facility] [place] 09/09/2022 09:15:12 procedure on upper arm completed Joyce Simba [place] [facility] [place] 09/09/2022 09:15:32 procedure on lower leg completed Joycealexandria [place] - [facility] [place] 09/09/2022 09:15:41 Imaging Results Imaging Date Name Status LastModified by Organiz ation Details LastModified Time 09/08/2022 lumbar puncture diagnstc completed [address] (Radiology) [address] [place], [address], 09/09/2022 08:46:52 09/08/2022 lumbar puncture (PROC) completed [address] [place] [address] (Radiology) [address] [place], [address], 09/08/2022 13:31:57 09/08/2022 fluoro guide needle placement completed [address] (Radiology) [address] [place], [address], 09/16/2022 08:35:51 09/08/2022 lumbar puncture (PROC) completed [address] Centralized Scheduling [address] [place], [address], 09/16/2022 08:35:27 Procedure Notes None recorded. Medical Equipment None Reported. Allergies Allergen ID Allergen Name Allergen Category Reaction Reaction Severity Criticality Documentation Date Start Date Code Code System Note Provider Name and Address Organization Details Recorded Time 72362 Substance with sulfonami de structure and antibacte rial mechanism of action (substanc e) medicatio n Not available Not available Not available 09/09/2022 90689 8003 SNOMED Joyce Simba [facility] & [place] 09:13:10 Medications Name Sig Start Date Stop [...] Updated DateTime 07/14/2023 180.34 cm 27.2 kg/m2 21022.51 g 98 [degF] Jennifer Daniel [facility] 07/14/2023 09:49:59 Date Recorded Body height Body mass index (BMI) Body weight Body temperature Provider Name and Address Organization Details Last Updated DateTime 07/26/2024 180.34 cm 27.2 kg/m2 66154.51 g 98 [degF] Librado Hannah [facility] & [place] 07/26/2024 08:59:03 Date Recorded Body height Body mass index (BMI) Body weight Body temperature Oxygen saturation Oxygen saturation in Arterial blood by Pulse oximetry Heart rate Systolic blood pressure Diastolic blood pressure Provider Name and Address Organization Details Last Updated DateTime 11/23/202 2 180.34 cm 30.5 kg/m2 54929.7 3 g 96.4 [degF] 97 % 97 % 85 /min 140 mm[Hg] 70 mm[Hg] Joyce BELTRAN [facility] & [place] 2 09:12:45 Date Recorded Body height Body temperature Oxygen saturation Oxygen saturation in Arterial blood by Pulse oximetry Heart rate Systolic blood pressure Diastolic blood pressure Provider Name and Address Organization Details Last Updated DateTime 2 180.34 cm 96 [degF] 98 % 98 % 92 /min 132 mm[Hg] 78 mm[Hg] Saima Murphy MD [address] [place] [address], [phone], [facility] & [place] 2 08:42:14 Social History None recorded. Functional [...] SNOMED-CT Code Diagnosis ICD10 Code Diagnosis Note [id number] MD [facility] [address] [place] [address] [place] [address] 09/09/2022 09:00:27 09/09/2022 10:35:21 Normal pressure hydrocephalus 82805263 G91.2 improvemen t noted after high-volum e spinal tap yesterday, distinct improvemen t in gait and balance as well as overall brightness . Patient himself feels better, I will follow-up with him over the next 2 weeks. In the meantime will send informatio n to Dr. Dionna Koenig at [facility] for further evaluation have also sent spinal fluid for further testing and awaiting results. [id number] MD [facility] [address] [place] [address],[place] [address] 10/07/2022 08:27:24 10/07/2022 13:13:34 Normal pressure hydrocephalus 72705036 G91.2 Distinct drop-off of gait mobility noted on today's examinatio jamey leahy he seemed to have a 2 week window of improvemen t with gradual drop-off since mostly noted on gait stability and balance but also on some degree of mental brightness . I have recommende d follow-up with Dr.Kara Koenig [facility] and will be sending these records to her. [id number] Carlito Gould Jr, MD [facility] [address] [address] 07/14/2023 09:27:48 07/14/2023 10:28:15 Lower urinary tract symptoms due to benign prostatic hypertrophy [id number] 9101 N40.1 patient with history of BPH. He underwent a green light laser TURP [place] [address] Lee. He continues to void well. Continues on tamsulosin and finasterid e as well. We discussed that typically folks can get off of the medication s after TURP. Screening for malignant neoplasm of prostate 505871588 Z12.5 patient's recent PSA was 2.0 in March 2023. Corrected for the finasterid e and this would be 4.0 in his within normal limits for his age. [id number] Carlito Gould Jr, MD [address] [address] 07/26/2024 08:53:34 07/26/2024 09:47:09 Lower urinary tract symptoms due to benign prostatic hypertrophy [id number] 9101 N40.1 patient with history of BPH. He underwent a green light laser TURP [place] [address] Lee. He continues to void well. Continues on tamsulosin and finasterid e as well. We discussed that typically folks can get off of the medication s after TURP. Screening for malignant neoplasm of prostate 880410227 Z12.5 patient's recent PSA was 2.0 in [...] 08/17/2024 1 [place] [id number] Carlita Bearden [id number] Carlita Bearden 07/26/2024 2 [place] Carlita Bearden [id number] Carlita Bearden Notes Date Note Type [...] and activities. Patient works in the local [employer] department and was complaining of increasing difficulty [...] acute weakness and headache was seen at [facility] where another MRI scan was performed, there [...] complaints at this time. Saima Murphy MD [address] [place] [address], [phone], [facility] 09/09/2022 10:32:33 10/07/2022 text/html Patient follows [...] great of an issue. Saima Murphy MD [address] [place] [address], [phone], [facility] 10/07/2022 09:13:08 07/14/2023 text/html patient is a 68-year-old white male who I previously saw in [place]. He transferred care to [facility] today. He has a history of [...] PSA was 2.March. Carlito Gould Jr, MD [address] [place] [address], [address], [place], [address], [facility] 07/14/2023 15:54:55 07/26/2024 text/html Patient is [...] would be 4.0. Carlito Gould Jr, MD [address] [place] [address], [address], [place], [address], [facility] - [facility] 08/16/2024 10:12:01
--- OUTSIDE RECORDS SUMMARY | 2025-03-02 07:44 | XMS_ITS | Data Portability ---
Author Organization [facility] Vickey shi, [place] CLOSED Address [address] [address] [place] [address] Care Team Providers Care Remote Sensing Analyst Name Role Phone LUIS ARMANDO LEE Urologist DONG FOURNIER Youth Corrections Officer Assessment Encounter Date Assessment Date Assessment LastModified [...] available 8 09:21:32 culture, urine 2017 018 [facility], [address] [place] [address], [address], 8 09:59:40 Referral None recorded. Procedures None recorded. Surgeries None recorded. Imaging None recorded. Medication Orders None recorded. Patient TargetsNo targets recorded. Patient Instructions Encounter Date Encounter Id Patient Instructions Last Modified By Organization Details Last Modified Time 06/22/2019 [id number] blood in the urine: care instructions Not available 06/22/2019 09:22:18 06/25/2020 [id number] blood in the urine: care instructions Not available 06/25/2020 09:20:38 Reason for Referral None Reported. Results Created Date Observation Date Name Description Value Unit Range Abnormal Flag Note LastModifiedBy Organization Detail LastModifiedTime 02/22/20 18 02/21/2018 urina lysis , dipst ick, auto Unknown Analyte Yellow Not Available [facility] Surgery Schedule [address] [place] [address], [address], 02/21/2018 15:02:56 02/22/20 18 02/21/2018 urina lysis , dipst ick, auto Unknown Analyte Clear Not Available [facility] Surgery Schedule [address] [place], [address], 02/21/2018 15:02:56 02/22/20 18 02/21/2018 urina lysis , dipst ick, auto Unknown Analyte 1.015 Not Available [facility] Surgery Schedule [address] [place], [address], 02/21/2018 15:02:56 02/22/20 18 02/21/2018 urina lysis , dipst ick, auto Unknown Analyte 6.5 Not Available [facility] Surgery Schedule [address] [place], [address], 02/21/2018 15:02:56 02/22/20 18 02/21/2018 urina lysis , dipst ick, auto Unknown Analyte 25 Kiko/ul Trace Not Available [facility] Surgery Schedule [address] [place], [address], 02/21/2018 15:02:56 02/22/20 18 02/21/2018 urina lysis , dipst ick, auto Unknown Analyte Negati ve Not Available [facility] Surgery Schedule [address] [place], [address], 02/21/2018 15:02:56 02/22/20 18 02/21/2018 urina lysis , dipst ick, auto Unknown Analyte Trace Not Available [facility] Surgery Schedule [address] [place], [address], 02/21/2018 15:02:56 02/22/20 18 02/21/2018 urina lysis , dipst ick, auto Unknown Analyte Normal Not Available [facility] Surgery Schedule [address] [place], [address], 02/21/2018 15:02:56 02/22/20 18 02/21/2018 urina lysis , dipst ick, auto Unknown Analyte Negati ve Not Available [facility] Surgery Schedule [address] [place], [address], 02/21/2018 15:02:56 02/22/20 18 02/21/2018 urina lysis , dipst ick, auto Unknown Analyte 4 mg/dl Not Available [facility] Surgery Schedule [address] [place], [address], 02/21/2018 15:02:56 02/22/20 18 02/21/2018 urina lysis , dipst ick, auto Unknown Analyte 1 mg/dl (+) Not Available [facility] Surgery Schedule [address] [place], [address], 02/21/2018 15:02:56 02/22/20 18 02/21/2018 urina lysis , dipst ick, auto Unknown Analyte 50 Issac/ul Not Available [facility] Surgery Schedule [address] [place] [address], [address], 02/21/2018 15:02:56 02/22/20 18 02/21/2018 urina lysis , dipst ick, auto Unknown Analyte Clean Catch Not Available [facility] Surgery Schedule [address] [place] [address], [address], 02/21/2018 15:02:56 02/22/20 18 02/21/2018 urina lysis , dipst ick, auto Unknown Analyte Automa ludin Not Available [facility] Surgery Schedule [address] [place] [address], [address], 02/21/2018 15:02:56 03/17/20 18 03/17/2018 cultu re, urine results [facility] e: CCUR Colle cted: 03/17 09:09 Site: Corine shena : 03/17 11:26 URINE SCREE N(CUL TURE) FINAL 03/21 11:53 03/21 No growt h day 4. Not Available [facility] Laboratory [address] [place] [address], [address], 03/21/2018 11:53:16 03/17/20 18 03/17/2018 urina lysis , dipst ick, auto Unknown Analyte Yellow Not Available [facility] [address] [place], [address], 03/17/2018 09:03:16 03/17/20 18 03/17/2018 urina lysis , dipst ick, auto Unknown Analyte Clear Not Available [facility]rology [address] [place] [address], [address], 03/17/2018 09:03:16 03/17/20 18 03/17/2018 urina lysis , dipst ick, auto Unknown Analyte 1.010 Not Available [facility]rology [address] [place] [address], [address], 03/17/2018 09:03:16 03/17/20 18 03/17/2018 urina lysis , dipst ick, auto Unknown Analyte 7.0 Not Available [facility] Urology [address], [address], 03/17/2018 09:03:16 03/17/20 18 03/17/2018 urina lysis , dipst ick, auto Unknown Analyte 500 Kiko/ul (++) Not Available [facility] [address], [address], 03/17/2018 09:03:16 03/17/20 18 03/17/2018 urina lysis , dipst ick, auto Unknown Analyte Negati ve Not Available [facility] [address], [address], 03/17/2018 09:03:16 03/17/20 18 03/17/2018 urina lysis , dipst ick, auto Unknown Analyte Negtiv e Not Available [facility] [address], [address], 03/17/2018 09:03:16 03/17/20 18 03/17/2018 urina lysis , dipst ick, auto Unknown Analyte Normal Not Available [facility] [address] [place], [address], 03/17/2018 09:03:16 03/17/20 18 03/17/2018 urina lysis , dipst ick, auto Unknown Analyte Not Available [facility] [address] [place], [address], 03/17/2018 09:03:16 03/17/20 18 03/17/2018 urina lysis , dipst ick, auto Unknown Analyte Negati ve Not Available [facility] [address] [place], [address], 03/17/2018 09:03:16 03/17/20 18 03/17/2018 urina lysis , dipst ick, auto Unknown Analyte Normal Not Available [facility] [address] [place], [address], 03/17/2018 09:03:16 03/17/20 18 03/17/2018 urina lysis , dipst ick, auto Unknown Analyte Negati ve Not Available [facility] [place], [address], 03/17/2018 09:03:16 03/17/20 18 03/17/2018 urina lysis , dipst ick, auto Unknown Analyte 250 Issac/ul Not Available [facility] [address] [place], [address], 03/17/2018 09:03:16 03/17/20 18 03/17/2018 urina lysis , dipst ick, auto Unknown Analyte Clean Catch Not Available [facility] [place], [address], 03/17/2018 09:03:16 03/17/20 18 03/17/2018 urina lysis , dipst ick, auto Unknown Analyte Automa ludin Not Available [facility] [address] [place], [address], 03/17/2018 09:03:16 06/21/20 18 06/21/2018 urina lysis , dipst ick, auto Unknown Analyte Yellow Not Available [facility] [address] [place], [address], 06/21/2018 09:05:06 06/21/20 18 06/21/2018 urina lysis , dipst ick, auto Unknown Analyte Clear Not Available [facility] [address] [place], [address], 06/21/2018 09:05:06 06/21/20 18 06/21/2018 urina lysis , dipst ick, auto Unknown Analyte 1.025 Not Available [facility]rology [address] [place], [address], 06/21/2018 09:05:06 06/21/20 18 06/21/2018 urina lysis , dipst ick, auto Unknown Analyte 5.0 Not Available [facility] [place], [address], 06/21/2018 09:05:06 06/21/20 18 06/21/2018 urina lysis , dipst ick, auto Unknown Analyte Negati ve Not Available [facility] [address] [place], [address], 06/21/2018 09:05:06 06/21/20 18 06/21/2018 urina lysis , dipst ick, auto Unknown Analyte Negati ve Not Available [facility] [address] [place], [address], 06/21/2018 09:05:06 06/21/20 18 06/21/2018 urina lysis , dipst ick, auto Unknown Analyte Negtiv e Not Available [facility]rology [address] [place] [address], [address], 06/21/2018 09:05:06 06/21/20 18 06/21/2018 urina lysis , dipst ick, auto Unknown Analyte Normal Not Available [facility] [address] [place], [address], 06/21/2018 09:05:06 06/21/20 18 06/21/2018 urina lysis , dipst ick, auto Unknown Analyte Negati ve Not Available [facility] [address] [place] [address], [address], 06/21/2018 09:05:06 06/21/20 18 06/21/2018 urina lysis , dipst ick, auto Unknown Analyte 1 mg/dl Not Available [facility] [address] [place] [address], [address], 06/21/2018 09:05:06 06/21/20 18 06/21/2018 urina lysis , dipst ick, auto Unknown Analyte 1 mg/dl (+) Not Available [facility] [address] [place] [address], [address], 06/21/2018 09:05:06 06/21/20 18 06/21/2018 urina lysis , dipst ick, auto Unknown Analyte Negati ve Not Available [facility] [address] [place] [address], [address], 06/21/2018 09:05:06 06/21/20 18 06/21/2018 urina lysis , dipst ick, auto Unknown Analyte Clean Catch Not Available [facility] [address] [place] [address], [address], 06/21/2018 09:05:06 06/21/20 18 06/21/2018 urina lysis , dipst ick, auto Unknown Analyte Automa ludin Not Available [facility] [address] [place] [address], [address], 06/21/2018 09:05:06 06/22/20 19 06/22/2019 PSA, serum [...] absen ce of disea se. Not Available [facility] [address] [place] [address], [address], 06/22/2019 09:44:31 06/22/2006/22/2019 urina lysis , micro scopi c RBC, urine 3-10 0-2/hp f abnormal Not Available [facility] [address] [place] [address], [address], 06/22/2019 11:39:55 06/22/2006/22/2019 urina lysis , micro scopi c squamous epi. cells OCCASI ONAL 0-5/hp f normal Not Available [facility] [address] [place] [address], [address], 06/22/2019 11:39:55 06/22/2006/22/2019 urina lysis , dipst ick, auto Unknown Analyte Yellow Not Available [facility] [address] [place], [address], 06/22/2019 09:08:28 06/22/2006/22/2019 urina lysis , dipst ick, auto Unknown Analyte Clear Not Available [facility] [address] [place], [address], 06/22/2019 09:08:28 06/22/2006/22/2019 urina lysis , dipst ick, auto Unknown Analyte 1.020 Not Available [facility] [address] [place] [address], [address], 06/22/2019 09:08:28 06/22/2006/22/2019 urina lysis , dipst ick, auto Unknown Analyte 5.0 Not Available [facility] [address] [place], [address], 06/22/2019 09:08:28 06/22/2006/22/2019 urina lysis , dipst ick, auto Unknown Analyte Negati ve Not Available [facility] [address] [place] [address], [address], 06/22/2019 09:08:28 06/22/2006/22/2019 urina lysis , dipst ick, auto Unknown Analyte Negati ve Not Available [facility] [address] [place] [address], [address], 06/22/2019 09:08:28 06/22/2006/22/2019 urina lysis , dipst ick, auto Unknown Analyte Negtiv e Not Available [facility] [address] [place] [address], [address], 06/22/2019 09:08:28 06/22/2006/22/2019 urina lysis , dipst ick, auto Unknown Analyte Normal Not Available [facility]rology [address] [place] [address], [address], 06/22/2019 09:08:28 06/22/2006/22/2019 urina lysis , dipst ick, auto Unknown Analyte Negati ve Not Available [facility] [address] [place] [address], [address], 06/22/2019 09:08:28 06/22/2006/22/2019 urina lysis , dipst ick, auto Unknown Analyte Normal Not Available [facility]rology [address] [place] [address], [address], 06/22/2019 09:08:28 06/22/2006/22/2019 urina lysis , dipst ick, auto Unknown Analyte Negati ve Not Available [facility] [address] [place], [address], 06/22/2019 09:08:28 06/22/20 19 06/22/2019 urina lysis , dipst ick, auto Unknown Analyte 50 Issac/ul Not Available [facility] [address] [place] [address], [address], 06/22/2019 09:08:28 06/22/20 19 06/22/2019 urina lysis , dipst ick, auto Unknown Analyte Clean Catch Not Available [facility] [address] [place] [address], [address], 06/22/2019 09:08:28 06/22/20 19 06/22/2019 urina lysis , dipst ick, auto Unknown Analyte Automa ludin Not Available [facility] [address], [address], 06/22/2019 09:08:28 06/26/20 19 06/26/2019 creat inine , blood creatinine, fs mg/dL M 0.7-1. 3 F0.6-1 .1 Not Available [facility] [address] [place] [address], [address], 06/26/2019 09:15:52 07/07/20 19 07/07/2019 bun (bloo d urea nitro gen), serum or plasm a blood urea nitrogen 17 mg/dL 6-20 normal Not Available [facility] Laboratory [address] [place] [address], [address], 07/07/2019 12:34:39 07/07/20 19 07/07/2019 creat inine , serum or plasm a creatinine 1.15 mg/dL 0.70-1 .25 normal Not Available [facility] [address] [place] [address], [address], 07/07/2019 12:34:40 07/19/20 07/19/2019 cytol ogy, non-g [...] 15:09 Page 1 of 1 Not Available [facility] [address] [place] [address], [address], 07/21/2019 15:10:54 07/19/20 19 07/19/2019 urina lysis , dipst ick, auto Unknown Analyte Yellow Not Available [facility] Surgery Schedule [address] [place] [address], [address], 07/19/2019 13:40:38 07/19/20 19 07/19/2019 urina lysis , dipst ick, auto Unknown Analyte Clear Not Available [facility] Surgery Schedule [address] [place], [address], 07/19/2019 13:40:38 07/19/2007/19/2019 urina lysis , dipst ick, auto Unknown Analyte 1.020 Not Available [facility] Surgery Schedule [address] [place], [address], 07/19/2019 13:40:38 07/19/20 19 07/19/2019 urina lysis , dipst ick, auto Unknown Analyte 5.0 Not Available [facility] Surgery Schedule [address] [place], [address], 07/19/2019 13:40:38 07/19/20 19 07/19/2019 urina lysis , dipst ick, auto Unknown Analyte Negati ve Not Available [facility] Surgery Schedule [address] [place], [address], 07/19/2019 13:40:38 07/19/20 19 07/19/2019 urina lysis , dipst ick, auto Unknown Analyte Negati ve Not Available [facility] Surgery Schedule [address] [place], [address], 07/19/2019 13:40:38 07/19/2007/19/2019 urina lysis , dipst ick, auto Unknown Analyte Negtiv e Not Available [facility] Surgery Schedule [address] [place], [address], 07/19/2019 13:40:38 07/19/2007/19/2019 urina lysis , dipst ick, auto Unknown Analyte Normal Not Available [facility] Surgery Schedule [address] [place], [address], 07/19/2019 13:40:38 07/19/2007/19/2019 urina lysis , dipst ick, auto Unknown Analyte Negati ve Not Available [facility] Surgery Schedule [address] [place] [address], [address], 07/19/2019 13:40:38 07/19/20 19 07/19/2019 urina lysis , dipst ick, auto Unknown Analyte Normal Not Available [facility] Surgery Schedule [facility] [place], [address], 07/19/2019 13:40:38 07/19/20 19 07/19/2019 urina lysis , dipst ick, auto Unknown Analyte Negati ve Not Available [facility] Surgery Schedule [address] [place] [address], [address], 07/19/2019 13:40:38 07/19/20 19 07/19/2019 urina lysis , dipst ick, auto Unknown Analyte 50 Issac/ul Not Available [facility] Surgery Schedule [address] [place], [address], 07/19/2019 13:40:38 07/19/20 19 07/19/2019 urina lysis , dipst ick, auto Unknown Analyte Clean Catch Not Available [facility] Surgery Schedule [address] [place], [address], 07/19/2019 13:40:38 07/19/20 19 07/19/2019 urina lysis , dipst ick, auto Unknown Analyte Automa ludin Not Available [facility] Surgery Schedule [address] [place], [address], 07/19/2019 13:40:38 06/25/2006/25/2020 urina lysis , dipst ick Unknown Analyte Straw Not Available [facility] [address] [place] [address], [address], 06/25/2020 08:58:13 06/25/2006/25/2020 urina lysis , dipst ick Unknown Analyte Clear Not Available [facility] [address] [place] [address], [address], 06/25/2020 08:58:13 06/25/2006/25/2020 urina lysis , dipst ick Unknown Analyte 1.030 Not Available [facility] [address] [place] [address], [address], 06/25/2020 08:58:13 06/25/2006/25/2020 urina lysis , dipst ick Unknown Analyte 1.003 - 1.035 Not Available [facility] [address] [place] [address], [address], 06/25/2020 08:58:13 06/25/2006/25/2020 urina lysis , dipst ick Unknown Analyte 5.0 Not Available [facility]rology [address] [place] [address], [address], 06/25/2020 08:58:13 06/25/202020 urina lysis , dipst ick Unknown Analyte 5.0 - 8.0 Not Available [facility] [address] [place] [address], [address], 06/25/2020 08:58:13 06/25/2006/25/2020 urina lysis , dipst ick Unknown Analyte Negati ve Not Available [facility] [address], [address], 06/25/2020 08:58:13 06/25/2006/25/2020 urina lysis , dipst ick Unknown Analyte Negati ve Not Available [facility] [address], [address], 06/25/2020 08:58:13 06/25/2006/25/2020 urina lysis , dipst ick Unknown Analyte Negati ve Not Available [address], [address], 06/25/2020 08:58:13 06/25/2006/25/2020 urina lysis , dipst ick Unknown Analyte Negati ve Not Available [address], [address], 06/25/2020 08:58:13 06/25/2006/25/2020 urina lysis , dipst ick Unknown Analyte Negati ve Not Available [facility] [address], [address], 06/25/2020 08:58:13 06/25/2006/25/2020 urina lysis , dipst ick Unknown Analyte Negati ve - Trace Not Available [address], [address], 06/25/2020 08:58:13 06/25/2006/25/2020 urina lysis , dipst ick Unknown Analyte Normal Not Available [facility] [address] [place], [address], 06/25/2020 08:58:13 06/25/2006/25/2020 urina lysis , dipst ick Unknown Analyte Normal Not Available [facility] [address] [place] [address], [address], 06/25/2020 08:58:13 06/25/2006/25/2020 urina lysis , dipst ick Unknown Analyte Negati ve Not Available [facility] [address] [place] [address], [address], 06/25/2020 08:58:13 06/25/2006/25/2020 urina lysis , dipst ick Unknown Analyte Negati ve Not Available [facility] [address] [place] [address], [address], 06/25/2020 08:58:13 06/25/2006/25/2020 urina lysis , dipst ick Unknown Analyte Normal Not Available [facility] [address] [place] [address], [address], 06/25/2020 08:58:13 06/25/2006/25/2020 urina lysis , dipst ick Unknown Analyte Normal - 1mg/dl Not Available [facility] [address] [place] [address], [address], 06/25/2020 08:58:13 06/25/2006/25/2020 urina lysis , dipst ick Unknown Analyte Negati ve Not Available [facility] [address] [place] [address], [address], 06/25/2020 08:58:13 06/25/2006/25/2020 urina lysis , dipst ick Unknown Analyte Negati ve Not Available [facility] [address] [place] [address], [address], 06/25/2020 08:58:13 06/25/20 20 06/25/2020 urina lysis , dipst ick Unknown Analyte Negati ve Not Available [facility] [address], [address], 06/25/2020 08:58:13 06/25/20 20 06/25/2020 urina lysis , dipst ick Unknown Analyte Negati ve Not Available [address], [address], 06/25/2020 08:58:13 06/25/20 20 06/25/2020 urina lysis , dipst ick Unknown Analyte Clean Catch Not Available [address], [address], 06/25/2020 08:58:13 06/25/20 20 06/25/2020 urina lysis , dipst ick Unknown Analyte Visual Not Available [facility] [address], [address], 06/25/2020 08:58:13 07/07/20 19 07/07/2019 CT, abdom en + pelvi s, w/wo contr ast [address] [address] Paticlarisa t Name: CARLITA Ken t : [birth year] 51 Paticlarisa t 4 Orderi [facility] er: LUIS ARMANDO GRANT OR EXAM DATE: 2018 EXAM: CT [facility]: Multip le axial CT images of the abdome n were obtain ed before and in the combin ed nephro graphi c and excret ory phases after a split bolus IV inject ion of Optira [id number] (1 x 100ml bottle [facility] 0019-1 323-11 ). Bowel was marked with [...] Bonilla MD on 019 1:53 PM [email or web address] [facility] [address] [place], [address], 07/10/2019 08:31:12 Result Notes None recorded. Problems Name Problem SNOMED Code Status Onset Date Resolution Date Notes Provider Name and Address Organization Details Recorded Time Mixed conductiv e AND sensorine ural hearing loss 37258552 Active 2015 From Automated Load;Prov ider: Dong Fournier;Yeyo tatus: Active Not Available [facility] 7 06:42:18 Lower urinary tract symptoms due to benign prostatic hypertrop hy 11908580235 101 Active 2014 From Automated Load;Prov ider: Luis Armando Lee;St atus: Active Not Available [facility] 6 07:50:29 Prostate specific antigen above reference range 459473790 Active 2014 From Automated Load;Prov ider: Luis Armando Lee;St atus: Active Not Available [facility] 6 07:50:29 Microscop ic hematuria 818301999 Active 2014 From Automated Load;Prov ider: Luis Armando Lee;St atus: Active Not Available [facility] 6 07:50:29 Acute non-suppu rative serous otitis media 089885157 Active 2015 From Automated Load;Prov ider: Dong Fournier;S tatus: Active Not Available [facility] 6 07:50:29 Conductiv e hearing loss 50882816 Active 2015 From Automated Load;Prov ider: Dong Fournier;S tatus: Active Not Available [facility] 6 07:50:29 Problem Notes None recorded. Procedures Surgical History Date Name Laterality Status Provider Name and Address Organization Details Recorded Time 0 Post Void Residual; Ultrasound completed Gunjan Kapadia [facility] 06/25/2020 09:08:12 9 Cystoscopy - male completed LUIS ARMANDO LEE MD [address] [place], [address], [facility] 07/19/2019 14:20:36 09/05/201 9 Post Void Residual; Ultrasound completed Tahmina [facility] 06/22/2019 09:08:21 8 Post Void Residual; Ultrasound completed Xiomara Garibay [facility] 06/21/2018 09:08:03 8 Post Void Residual; Ultrasound completed Jacquie Kiser [facility] 03/17/2018 09:08:30 8 Uroflowmetry; Complex completed [facility] 02/28/2018 09:30:39 8 Cystoscopy - male completed LUIS ARMANDO LEE MD [address] [place], [address], [facility] 02/21/2018 08:28:57 8 Post Void Residual; Ultrasound completed Lilygarry Parham [facility] 02/01/2018 09:42:56 7 Post Void Residual; Ultrasound completed Tahmina [facility] 08/03/2017 09:02:42 7 EXTRA CORPOREAL SHOCK WAVE LITHOTRIPSY (SURG) completed LUIS ARMANDO LEE MD [address] [place], [address], [facility] 03/22/2017 12:37:31 7 Post Void Residual; Ultrasound completed Bhargavi Ellison [facility] 01/25/2017 11:08:55 6 Post Void Residual; Catheter completed Bhargavi Ellison [facility] 10/15/2016 08:35:18 6 Audiogram completed RODRIGO ARRIOLA [address] [place], [address], [facility] 10/07/2016 10:20:39 Imaging Results Imaging Date Name Status LastModified by Organiz ation Details LastModified Time 07/07/2019 CT, abdomen + pelvis, w/wo contrast completed [email or web address] [facility] [address] [place], [address], 07/10/2019 08:31:12 Procedure Notes None recorded. Medical Equipment None Reported. Allergies Allergen ID Allergen Name Allergen Category Reaction Reaction Severity Criticality Documentation Date Start Date Code Code System Note Provider Name and Address Organization Details Recorded Time 187205 Substance with sulfonami de structure and antibacte rial mechanism of action (substanc e) medicatio n Not available Not available Not available 09/11/20162010 65689 8003 SNOMED Comme nt: Creat ed By: Ailyn reynaCre ated Date: 2010 1:02: 38 PM; Not Available [facility] 6 02:54:27 Medications Name Sig Start Date [...] (PF) 50 mcg/0.5 mL intramusc ular suspensio tosin kit 06/25 completed Not Available Not Available Not Available Vitals Date Recorded Body height Body mass index (BMI) Body weight Provider Name and Address Organization Details Last Updated DateTime 03/17/2018 180.34 cm 27.2 kg/m2 33634.51 g Jacquie Kiser [facility] 03/17/2018 09:02:58 Date Recorded Body height Body mass index (BMI) Body weight Provider Name and Address Organization Details Last Updated DateTime 06/21/2018 180.34 cm 27.2 kg/m2 30831.51 g Xiomara Garibay [facility] 06/21/2018 09:04:49 Date Recorded Body height Body mass index (BMI) Body weight Body temperature Provider Name and Address Organization Details Last Updated DateTime 06/22/2019 180.34 cm 27.2 kg/m2 26997.51 g 98 [degF] Tahmina Fragoso [facility] 06/22/2019 09:05:56 Date Recorded Body weight Body mass index (BMI) Body height Provider Name and Address Organization Details Last Updated DateTime 06/25/2020 80330.51 g 27.2 kg/m2 180.34 cm Gunjan Kapadia [facility] 06/25/2020 08:56:38 Social History Question Answer Notes LastModified by Organizat ion Details LastModified Time Tobacco Smoking Status Never Smoker Karen bourne [facility] 10/07/2016 09:19:00 How Much Tobacco Do You Chew? None [email or web address] Information not available 06/25/2020 What Was The Date Of Your Most Recent Tobacco Screening? 06/21/2018 Information n ot available 12/05/2019 How Much Tobacco Do You Smoke? No [email or web address] Information not available 06/25/2020 How Many Years Have You Smoked Tobacco? 0 [email or web address] Information not available 06/25/2020 Sex: Unknown Functional Status Question Answer Note LastModified by Organizat ion Details LastModified Time What is your level of alcohol consumption? Occasional [email or web address] Information not available 06/25/2020 Do you or have you ever used smokeless tobacco? Never used smokeless tobacco [email or web address] Information not available 06/25/2020 Do you or have you ever used e-cigarettes or vape? Never used electronic cigarettes [email or web address] Information not available 06/25/2020 Mental Status None recorded. Family History Nothing Reported. Medical History Condition Response Hypertension Y High Cholesterol Y Past Encounters Encounter ID Performer Location Encounter Start Date Encounter Closed Date Diagnosis/Indication Diagnosis SNOMED-CT Code Diagnosis ICD10 Code Diagnosis Note [id number] DONG FOURNIER MD [facility] [address] [place] [address] 1 10/07/2016 08:57:35 10/07/2016 12:06:38 Chronic serous otitis media 79678613 H65.[address] and patent. Hearing improved.a udiogram reviewed Acute sinusitis 05666785 J01.90 [id number] DONG FOURNIER MD [facility] [address] [place] [address] 1 10/07/2016 09:54:51 10/07/2016 10:21:42 Sensorineural hearing loss of bilateral ears 171414784 H90.3 [id number] LUIS ARMANDO LEE MD [facility]OLOGY [facility] [address] [place] [address] 1 10/15/2016 07:35:58 10/15/2016 09:12:15 Lower urinary tract symptoms due to benign prostatic hypertrophy 8669267208 9101 N40.1 Benign pro static hyperplasia 147783619 N40.1 Microscopic hematuria 19 6891217 R31.21 Incomplete emptying of urinary bladder 233397709 R39.14 [id number] LUIS ARMANDO LEE MD UROLOGY [facility] [address] [place] [address] 1 01/25/2017 10:48:50 01/25/2017 12:53:18 Benign prostatic hyperplasia with outflow obstruction 896869526 N40.1 Microscopic hematuria 19 1633273 R31.21 [id number] DONG FOURNIER MD [facility] [address] [place] [address] 1 01/25/2017 10:48:50 01/25/2017 12:53:18 Chronic serous otitis media 49580845 H65.[address] and patent. f/u 6 mo [id number] LUIS ARMANDO LEE MD UROLOGY [facility] [address] [place] [address] 1 03/08/2017 07:58:58 03/08/2017 09:23:26 Ureteric stone 44035476 N20.1 [id number] LUIS ARMANDO LEE MD UROLOGY [facility] [address] [place] [address] 1 04/01/2017 09:27:16 04/01/2017 10:33:05 Kidney stone 17679422 N20.0 [id number] LUIS ARMANDO LEE MD UROLOGY [facility] [address] [place] [address] 1 08/03/2017 08:41:11 08/03/2017 09:54:35 Benign prostatic hyperplasia with outflow obstruction 886505688 N40.1 Incomplete emptying of urinary bladder 332401914 R39.14 History of calculus of kidney 315773121 Z87.624 [id number] DONG FOURNIER MD [facility] [address] [place] [address] 1 08/11/2017 09:03:32 08/11/2017 09:36:45 Chronic serous otitis media 45254249 H65.23 both tubes extruded and tm's look fine. No fluid present. F/U prn [id number] LUIS ARMANDO LEE MD UROLOGY [facility] [address] [place] [address] 1 02/01/2018 09:03:07 02/01/2018 10:09:37 Benign prostatic hyperplasia with outflow obstruction 276264415 N40.1 Incomplete emptying of urinary bladder 997534329 R39.14 [id number] LUIS ARMANDO LEE MD SURGERY SCHEDULE [address] [place] [address] 1 02/21/2018 06:32:25 02/21/2018 06:32:56 [id number] LUIS ARMANDO LEE MD UROLOGY [facility] [address] [place] [address] 1 02/28/2018 09:08:03 03/01/2018 15:54:44 Lower urinary tract symptoms due to benign prostatic hypertrophy 7244644185 9101 N40.1 [id number] LUIS ARMANDO LEE MD UROLOGY [facility] [address] [place] [address] 1 03/17/2018 08:50:49 03/17/2018 09:35:44 Acute urinary tract infection 595945637 N39.0 Benign pro static hyperplasia with outflow obstruction 286643309 N40.1 Incomplete emptying of urinary bladder 925494264 R39.14 [id number] LUIS ARMANDO LEE MD UROLOGY [facility] [address] [place] [address] 1 06/21/2018 08:55:40 06/21/2018 09:57:45 Benign prostatic hyperplasia with outflow obstruction 237467926 N40.1 [id number] LUIS ARMANDO LEE MD UROLOGY [facility] [address] [place] [address] 1 06/22/2019 08:39:54 06/22/2019 09:24:17 Benign prostatic hyperplasia with outflow obstruction 320905332 N40.1 Blood in urine 32710371 R31.9 [id number] LUIS ARMANDO LEE MD SURGERY SCHEDULE [address] [place] [address] 1 07/19/2019 12:34:50 07/19/2019 12:36:34 [id number] LUIS ARMANDO LEE MD UROLOGY [facility] [address] [place] [address] 1 06/25/2020 08:51:24 06/25/2020 10:03:45 Benign prostatic hyperplasia with outflow obstruction 260101089 N40.1 Microscopic hematuria 19 4141158 R31.21 Health Concerns Section Related Observation LastModified by Organization Detai ls LastModified Time None Recorded Concern Status LastModified by Organization Details LastModified Time None Recorded Advance Directives Directive None Recorded Payers Insurance Date Sequence Insurance Name Policy Number Policy Ar[place] Covered Member ID [place] Member ID Guarantor Name 06/21/2018 2 [facility] (MEDICARE REPLACEMENT/A DVANTAGE - PPO) [id number] Carlita Bearden [id number] Carlita Bearden 06/22/2020 2 [place] Carlita Bearden [id number] Carlita Bearden 06/25/[address] [facility] [place] [id number] Carlita Bearden II [id number] Carlita Bearden 04/22/2018 2 [place] Carlita Bearden [id number] Carlita Bearden Notes Date Note Type Note [...] frequency or dysuria. LUIS ARMANDO LEE MD [address] [place] [address], [phone], [facility] 03/17/2018 09:22:08 06/21/2018 text/html Mr. Bearden returns today for follow-up of BPH with severe incomplete bladder emptying. He underwent greenlight laser vaporization of the prostate in February. His preoperative residuals were over 500 mL. Overall he is very pleased. He has occasional mild postvoid dribbling. No dysuria or hematuria. LUIS ARMANDO LEE MD [address] [place] [address] [place], [address], [facility] 06/21/2018 09:16:40 06/22/2019 text/html Mr. Bearden [...] hematuria. No dysuria. LUIS ARMANDO LEE MD [address] [place] [address] [place], [address], [facility] 06/22/2019 09:22:52 06/25/2020 text/html Mr. Bearden [...] a year ago. LUIS ARMANDO LEE MD [address] [place] [address], [phone], [facility] 06/25/2020 09:21:17
--- OUTSIDE RECORDS SUMMARY | 2025-03-02 07:44 | XMS_ITS ---
Author Organization Unknown Medications Medication Instructions Effective Dates (start - stop) Status chlorhexidine gluconate 1.2 MG/ML Mouthwash 0111-73-12C70:00:00.000+00:0 0 - Completed levothyroxine sodium 0.112 M G Oral Tablet 0568-50-25T51:00:00.000+00:0 0 - Completed doxycycline hyclate 100 MG O ral Capsule 5127-28-13V02:00:00.000+00:0 0 - Completed levothyroxine sodium 0.112 M G Oral Tablet 1251-97-90Q18:00:00.000+00:0 0 - Completed cephalexin 500 MG Oral Capsule 992-61-64I12:00:00.000+00:0 0 - Completed levothyroxine sodium 0.112 M G Oral Tablet 0432-58-97I04:00:00.000+00:0 0 - Completed levothyroxine sodium 0.112 M G Oral Tablet 5949-60-30J43:00:00.000+00:0 0 - Completed ondansetron 8 MG Oral Tablet 11-28-29:00:00.000+00:0 0 - Completed cefdinir 300 MG Oral Capsule 11-27-27:00:00.000+00:0 0 - Completed valsartan 160 MG Oral Tablet 12-17-05:00:00.000+00:0 0 - Completed amoxicillin 500 MG Oral Capsule 4308-34-91D95:00:00.000+00:0 0 - Completed finasteride 5 MG Oral Tablet 12-19-04:00:00.000+00:0 0 - Completed gabapentin 300 MG Oral Capsule 2 966-84-66G75:00:00.000+00:0 0 - Completed gabapentin 300 MG Oral Capsule 637-15-36R80:00:00.000+00:0 0 - Completed mupirocin 0.02 MG/MG Topical Ointment 6040-09-21F48:00:00.000+00:0 0 - Completed gabapentin 300 MG Oral Capsule 198-55-77F51:00:00.000+00:0 0 - Completed finasteride 5 MG Oral [...] rosuvastatin calcium 10 MG O ral Tablet 3210-13-80T95:00:00.000+00:0 0 - Completed sertraline 50 MG Oral Tablet 11-28-07:00:00.000+00:0 0 - Completed rosuvastatin calcium 10 MG O ral Tablet 7915-27-47O75:00:00.000+00:0 0 - Completed rosuvastatin calcium 10 MG O ral Tablet 6056-91-12T74:00:00.000+00:0 0 - Completed montelukast 10 MG Oral Tablet 09-07-26:00:00.000+00:0 0 - Completed gabapentin 300 MG Oral Capsule 039-59-39Q32:00:00.000+00:0 0 - Completed gabapentin 300 MG Oral Capsule 163-64-71T06:00:00.000+00:0 0 - Completed cephalexin 500 MG Oral Capsule 328-41-99Y93:00:00.000+00:0 0 - Completed montelukast 10 MG Oral Tablet 08-06-06:00:00.000+00:0 0 - Completed rosuvastatin calcium 10 MG O ral Tablet 0014-75-31Y01:00:00.000+00:0 0 - Completed azithromycin 500 MG Oral Tablet 7651-88-79B84:00:00.000+00:0 0 - Completed ondansetron 4 MG Disintegrat ing Oral Tablet 5830-95-51V67:00:00.000+00:0 0 - Completed tamsulosin hydrochloride 0.4 MG Oral Capsule 7727-75-77D40:00:00.000+00:0 0 - Completed nitrofurantoin, macrocrystal s 50 MG Oral Capsule 6296-85-67M04:00:00.000+00:0 0 - Completed valsartan 160 MG Oral Tablet 11-28-07:00:00.000+00:0 0 - Completed trazodone hydrochloride 50 M G Oral Tablet 5200-24-98O89:00:00.000+00:0 0 - Completed nitrofurantoin, macrocrystal s 50 MG Oral Capsule 0203-56-57U20:00:00.000+00:0 0 - Completed tamsulosin hydrochloride 0.4 MG Oral Capsule 4154-77-15N82:00:00.000+00:0 0 - Completed nitrofurantoin, macrocrystal s 50 MG Oral Capsule 6533-89-96J08:00:00.000+00:0 0 - Completed sertraline 50 MG Oral Tablet 11-25-07:00:00.000+00:0 0 - Completed 24 HR diltiazem hydrochlorid e 240 MG Extended Release Oral Capsule 9918-83-25A66:00:00.0 00+00:0 0 - Completed 24 HR diltiazem hydrochlorid e 240 MG Extended Release Oral Capsule 2171-51-37H49:00:00.0 00+00:0 0 - Completed tamsulosin hydrochloride 0.4 MG Oral Capsule 3805-54-20R94:00:00.000+00:0 0 - Completed 24 HR diltiazem hydrochlorid e 240 MG Extended Release Oral Capsule 1454-92-95R59:00:00.0 00+00:0 0 - Completed trazodone hydrochloride 50 M G Oral Tablet 5593-54-15N77:00:00.000+00:0 0 - Completed 24 HR diltiazem hydrochlorid e 240 MG Extended Release Oral Capsule 1145-00-22V56:00:00.0 00+00:0 0 - Completed tamsulosin hydrochloride 0.4 MG Oral Capsule 0579-41-82X44:00:00.000+00:0 0 - Completed valsartan 160 MG Oral Tablet 12-20-04:00:00.000+00:0 0 - Completed levofloxacin 500 MG Oral Tablet 7356-59-89O24:00:00.000+00:0 0 - Completed nitrofurantoin, macrocrystal s 50 MG Oral Capsule 0652-02-96L83:00:00.000+00:0 0 - Completed trazodone hydrochloride 50 M G Oral Tablet 8294-16-89M35:00:00.000+00:0 0 - Completed valsartan 160 MG Oral Tablet 11-25-07:00:00.000+00:0 0 - Completed 60 ACTUAT fluticasone propio madina 0.5 MG/ACTUAT / salmeterol 0.05 MG/ACTUAT Dry Powder Inhaler [Advair] 8258-24-34Y03:00:00.000+00:0 0 - Completed 30 ACTUAT fluticasone furoat e 0.2 MG/ACTUAT / vilanterol 0.025 MG/ACTUAT Dry Powder Inhaler [Breo] 3050-16-52M50:00:00.000+00:0 0 - Completed 30 ACTUAT fluticasone furoat e 0.2 MG/ACTUAT / vilanterol 0.025 MG/ACTUAT Dry Powder Inhaler [Breo] 5487-03-53U60:00:00.000+00:0 0 - Completed acetaminophen 325 MG / hydro codone bitartrate 5 MG Oral Tablet 4211-19-02Q21:00:00.000+00 :0 0 - Completed 30 ACTUAT fluticasone furoat e 0.2 MG/ACTUAT / vilanterol 0.025 MG/ACTUAT Dry Powder Inhaler [Breo] 4986-65-01W19:00:00.000+00:0 0 - Completed 60 ACTUAT fluticasone propio madina 0.5 MG/ACTUAT / salmeterol 0.05 MG/ACTUAT Dry Powder Inhaler [Advair] 7220-10-35B62:00:00.000+00:0 0 - Completed 60 ACTUAT fluticasone propio madina 0.5 MG/ACTUAT / salmeterol 0.05 MG/ACTUAT Dry Powder Inhaler [Advair] 7367-08-93B30:00:00.000+00:0 0 - Completed 30 ACTUAT fluticasone furoat e 0.2 MG/ACTUAT / vilanterol 0.025 MG/ACTUAT Dry Powder Inhaler [Breo] 6192-32-39H70:00:00.000+00:0 0 - Completed amoxicillin 875 MG / clavula madina 125 MG Oral Tablet 0370-17-49C75:00:00.000+00:0 0 - Completed 60 ACTUAT fluticasone propio madina 0.5 MG/ACTUAT / salmeterol 0.05 MG/ACTUAT Dry Powder Inhaler [Advair] 4434-62-80M02:00:00.000+00:0 0 - Completed 30 ACTUAT fluticasone furoat e 0.2 MG/ACTUAT / vilanterol 0.025 MG/ACTUAT Dry Powder Inhaler [Breo] 9565-07-02L25:00:00.000+00:0 0 - Completed 60 ACTUAT fluticasone propio madina 0.5 MG/ACTUAT / salmeterol 0.05 MG/ACTUAT Dry Powder Inhaler [Advair] 6574-62-58K15:00:00.000+00:0 0 - Completed Patient Care team information Name Category Status Period Participants - - Proposed period not known -
--- NOTE | 2025-03-02 08:00 | CA_ITS ---
APPROVED REPORT EXAM: Limited 2D Echocardiogram [employer] Worker: Tootie Burden RDCS Ht: 5 ft 11 in Wt: 197lbs BSA: 2.10 BP: 104/62 mmHg Indications: CM EF CHECK M-Mode Dimensions RVDd 2.81 cm (0.9-2.6) LA Diam 2.55 cm (1.9-4.0) LVDd 5.63 cm (3.5-5.7) LVDs 4.45 cm (3.5-5.7) IVSd 0.49 cm (0.6-1.1) PWd 0.72 cm (0.6-1.1) EF (Teich) 42.10% FS 21.00% EDV (Teich) 155.60 mL ESV (Teich) 90.10 mL Other Information Study Quality: Fair Conclusion This is a limited TTE to evaluate for LV systolic function. Limited windows are obtained. The left ventricle is normal in size. There is increased LV wall thickness. There is severe global hypokinesis present. No regional wall motion abnormalities are noted. LVEF is 25%. Compared to prior study on 12/25/2024, the LVEF is unchanged. Electronically signed by : Megha Kapoor MD 03/02/2025 20:34:35
== END 2025-03-02 23:59 | disposition home or self-care (01) ==
LOC: RT 07:42
PROVIDERS: PCP Internal Medicine; Visit Provider Physician Assistant
DX: I42.8 Other cardiomyopathies (principal)
CPT/HCPCS: 93308

== ENCOUNTER 2025-03-19 09:42 | Outpatient (POV) | payer BC, MEDICARE, SELFPAY ==
--- OUTSIDE RECORDS SUMMARY | 2025-03-19 09:47 | XMS_ITS | Data Portability ---
Author Organization [facility] Address [address] [place] [address] Assessment No assessment recorded. Plan of Treatment [...] CSF 64 mg/dL 15-45 high Not Available [facility] (Lab Registration) [address], [place], [address], 09/08/2022 13:00:50 09/08/20 22 09/08/2022 TOTAL PROTE IN CSF note Unles s other peace noted testi ng perfo rmed at: [facility] [address] [place] [address] [phone] Otis pace MD CLIA: [id number] Not Available [facility] (Lab Registration) [place], [address], 09/08/2022 13:00:50 09/08/20 22 09/08/2022 GLUCO SE CSF QUANT glucose CSF quant 69 mg/dL 40-75 Not Available [facility] (Lab Registration) [address] [place], [address], 09/08/2022 13:00:51 09/08/20 22 09/08/2022 GLUCO SE CSF QUANT note Unles s other peace noted testi ng perfo rmed at: [facility] [address] [place] [address] [phone] Otis pace MD CLIA: [id number] Not Available [facility] (Lab Registration) [address] [place], [address], 09/08/2022 13:00:51 09/08/20 22 09/08/2022 CELL COUNT CSF CSF tube # TUBE # 3 Not Available [facility] (Lab Registration) [address] [place], [address], 09/08/2022 13:38:05 09/08/2009/08/2022 CELL COUNT CSF CSF color COLORL ESS colorl ess Not Available [facility] (Lab Registration) [address] [place], [address], 09/08/2022 13:38:05 09/08/2009/08/2022 CELL COUNT CSF CSF apperance CLEAR clear Not Available [facility] (Lab Registration) [address] [place], [address], 09/08/2022 13:38:05 09/08/20 22 09/08/2022 CELL COUNT CSF volume 35 mL Not Available [facility] (Lab Registration) [address] [place], [address], 09/08/2022 13:38:05 09/08/2009/08/2022 CELL COUNT CSF CSF WBC count 13 /uL 0-5 high Not Available [facility] (Lab Registration) [address] [place], [address], 09/08/2022 13:38:05 09/08/20 22 09/08/2022 CELL COUNT CSF CSF RBC count 2 /uL 0-1 high Not Available [facility] (Lab Registration) [address] [place], [address], 09/08/2022 13:38:05 09/08/20 22 09/08/2022 CELL COUNT CSF polynuclear 0 % Not Available [facility] (Lab Registration) [address] [place], [address], 09/08/2022 13:38:05 09/08/20 22 09/08/2022 CELL COUNT CSF mononuclear 100 % Not Available [facility] (Lab Registration) [address] [place], [address], 09/08/2022 13:38:05 09/08/2009/08/2022 CELL COUNT CSF note Unles s other peace noted testi ng perfo rmed at: [facility] [address] [place] [address] [phone] Otis pace MD CLIA: [id number] Not Available [facility] (Lab Registration) [address] [place], [address], 09/08/2022 13:38:05 09/08/20 22 09/08/2022 GRAM STAIN BODY FLUID specimen source CSF Not Available [facility] (Lab Registration) [address] [place], [address], 09/08/2022 13:58:51 09/08/2009/08/2022 GRAM STAIN BODY FLUID gram stain organism 1 NONE SEEN Not Available [facility] (Lab Registration) [address] [place], [address], 09/08/2022 13:58:51 09/08/20 22 09/08/2022 GRAM STAIN BODY FLUID note Unles s other peace noted testi ng perfo rmed at: [facility] [address] [place] [address] [phone] Otis pace MD CLIA: [id number] Not Available [facility] (Lab Registration) [address] [place], [address], 09/08/2022 13:58:51 09/08/20 22 09/08/2022 CULTU RE CSF results MRB 09-09 836 No Growt h at Day 1 MRB 09-10 600 No Growt h at Day 2 LT 09-11 534 No Growt h at Day 3 Not Available [facility] (Lab Registration) [address] [place], [address], 09/11/2022 05:35:53 09/08/20 22 09/08/2022 CULTU RE CSF note Unles s other peace noted testi ng perfo rmed at: [facility] [address] [place] [address] [phone] Otis pace MD CLIA: [id number] Not Available [facility] (Lab Registration) [address] [place], [address], 09/11/2022 05:35:53 09/08/20 22 09/08/2022 VDRL CSF QUAL note Unles s other peace noted testi ng perfo rmed at: [facility] [address] [place] [address] [phone] Otis pace MD CLIA: [id number] Not Available [facility] (Lab Registration) [address] [place], [address], 09/12/2022 04:08:24 09/08/2009/12/2022 VDRL CSF QUAL vdrl CSF Not Available [facility] (Lab Registration) [address] [place], [address], 09/12/2022 04:08:24 09/08/20 22 09/08/2022 MULTI PLE SCLER OSIS( MS) PROFI LE note Unles s other peace noted testi ng perfo rmed at: [facility] jamil gonzalez [address] [place] [address] [phone] Otis pace MD CLIA: [id number] Not Available [facility] (Lab Registration) [address] [place], [address], 09/14/2022 15:10:12 09/08/20 22 09/14/2022 MULTI PLE SCLER OSIS( MS) PROFI LE albumin TNP g/dL Test not perfo rmed. No serum gel recei shena. Conta ct: Talisha somers Jasonme ter 09-11 Not Available [facility] (Lab Registration) [address] [place], [address], 09/14/2022 15:10:12 09/08/20 22 09/14/2022 MULTI PLE SCLER OSIS( MS) PROFI LE immunoglobul in g, qn, serum TNP mg/dL Test not perfo rmed. No serum gel recei shena. Conta ct: Dinotrevor na Vanme ter 09-11 SENT TO REFER ENCE LAB Not Available [facility] (Lab Registration) [address] [place], [address], 09/14/2022 15:10:12 09/08/20 22 09/14/2022 MULTI PLE SCLER OSIS( MS) PROFI LE albumin, CSF 28 mg/dL 15-55 Not Available [facility] (Lab Registration) [address] [place], [address], 09/14/2022 15:10:12 09/08/20 22 09/14/2022 MULTI PLE SCLER OSIS( MS) PROFI LE IgG, quant, CSF 2.0 mg/dL 0.0-10 .3 Not Available [facility] (Lab Registration) [address] [place], [address], 09/14/2022 15:10:12 09/08/20 22 09/14/2022 MULTI PLE SCLER OSIS( MS) PROFI LE CSF IgG index TNP Unabl e to calcu late resul t since non-n umeri c resul t obtai glenn for compo nent test. Not Available [facility] (Lab Registration) [address] [place], [address], 09/14/2022 15:10:12 09/08/20 22 09/14/2022 MULTI PLE SCLER OSIS( MS) PROFI LE oligoclonal banding -serum TNP Test not perfo rmed. No serum gel recei shena. Conta ct: Talisha yonis Del Angel ter 09-11 Not Available [facility] (Lab Registration) [address] [place], [address], 09/14/2022 15:10:12 09/08/20 22 09/14/2022 MULTI PLE [...] break down >100 [facility] [address] [id number] [facility] Lab Direc tor: Cain patton PhD, Phone : [phone] Not Available [facility] (Lab Registration) [address] [place], [address], 09/14/2022 15:10:12 09/08/20 22 09/14/2022 MULTI PLE SCLER OSIS( MS) PROFI LE IgG/alb ratio, CSF 0.07 0.00-0 .25 Not Available [facility] (Lab Registration) [address] [place], [address], 09/14/2022 15:10:12 09/08/20 22 09/14/2022 MULTI PLE SCLER OSIS( MS) PROFI LE IgG, syn rate, CSF TNP mg/da y Unabl e to calcu late resul t since non-n umeri c resul t obtai glenn for compo nent test. Not Available [facility] (Lab Registration) [address], [place], [address], 09/14/2022 15:10:12 09/08/20 22 09/14/2022 MULTI PLE [...] oblot ting metho dolog y. Not Available [facility] (Lab Registration) [address], [place], [address], 09/14/2022 15:10:12 09/08/20 22 09/08/2022 ANGIO TENSI N CONVE RT ENZ., CSF note Unles s other peace noted testi ng perfo rmed at: [facility] [address] [place] [address] [phone] Otis pace MD CLIA: [id number] Not Available [facility] (Lab Registration) [address] , [place], [address], 09/14/2022 18:08:47 09/08/20 22 09/14/2022 ANGIO TENSI N CONVE RT ENZ., CSF angiotensin convert enz, CSF <1.5 U/L 0.0-3. 1 Speci men Comme nt: Test( s) 31307 2-SHARON , CSF Speci men Comme nt: resul ts are label ed for resea rch purpo ses only by the Speci men Comme nt: assay 's manuf actur er. The perfo rmanc e hugo acter istic s of Speci men Comme nt: this assay have not been estab lishe d by e [facility] actur er. Speci men Comme nt: [...] at: - [facility] [place] [address] [facility] , [place] [address] Lab Direc tor: Jaelyn maldonado MD, Phone : [phone] Not Available [facility] (Lab Registration) [address], [place], [address], 09/14/2022 18:08:47 09/08/20 22 09/08/2022 LYME, LINE BLOT, CSF note Unles s other peace noted testi ng perfo rmed at: [facility] [address] [place] [address] [phone] Otis pace MD CLIA: [id number] Not Available [facility] (Lab Registration) [address] [place], [address], 09/19/2022 13:09:31 09/08/20 22 09/19/2022 LYME, LINE BLOT, CSF P93 Ab. IgG Absent Not Available [facility] (Lab Registration) [address] [place], [address], 09/19/2022 13:09:31 09/08/20 22 09/19/2022 LYME, LINE BLOT, CSF P66 Ab. IgG Absent Not Available [facility] (Lab Registration) [address] [place], [address], 09/19/2022 13:09:31 09/08/20 22 09/19/2022 LYME, LINE BLOT, CSF P58 Ab. IgG Absent Not Available [facility] (Lab Registration) [address] [place], [address], 09/19/2022 13:09:31 09/08/20 22 09/19/2022 LYME, LINE BLOT, CSF P45 Ab. IgG Absent Not Available [facility] (Lab Registration) [address] [place], [address], 09/19/2022 13:09:31 09/08/20 22 09/19/2022 LYME, LINE BLOT, CSF P41 Ab. IgG Absent Not Available [facility] (Lab Registration) [address] [place] [place], [address], 09/19/2022 13:09:31 09/08/20 22 09/19/2022 LYME, LINE BLOT, CSF P39 Ab. IgG Absent Not Available [facility] (Lab Registration) [address] [place], [address], 09/19/2022 13:09:31 09/08/20 22 09/19/2022 LYME, LINE BLOT, CSF P30 Ab. IgG Absent Not Available [facility] (Lab Registration) [address] [place], [address], 09/19/2022 13:09:31 09/08/20 22 09/19/2022 LYME, LINE BLOT, CSF P28 Ab. IgG Absent Not Available [facility] (Lab Registration) [address] [place], [address], 09/19/2022 13:09:31 09/08/20 22 09/19/2022 LYME, LINE BLOT, CSF P23 Ab. IgG Absent Not Available [facility] (Lab Registration) [address] [place], [address], 09/19/2022 13:09:31 09/08/20 22 09/19/2022 LYME, LINE BLOT, CSF P18 Ab. IgG Absent Not Available [facility] (Lab Registration) [address] [place], [address], 09/19/2022 13:09:31 09/08/20 22 09/19/2022 LYME, LINE [...] inves tigat ional use only. Not Available [facility] (Lab Registration) [address] [place], [address], 09/19/2022 13:09:31 09/08/20 22 09/19/2022 LYME, LINE BLOT, CSF P41 Ab. IgM Absent Not Available [facility] (Lab Registration) [address], [place], [address], 09/19/2022 13:09:31 09/08/20 22 09/19/2022 LYME, LINE BLOT, CSF P39 Ab. IgM Absent Not Available [facility] (Lab Registration) [address] [place], [address], 09/19/2022 13:09:31 09/08/20 22 09/19/2022 LYME, LINE BLOT, CSF P23 Ab. IgM Absent Not Available [facility] (Lab Registration) [address] [place], [address], 09/19/2022 13:09:31 09/08/20 22 09/19/2022 LYME, LINE [...] rmed at: BN - [facility] [place] [address] [facility] , [place] [address] Lab Direc tor: Jaelyn maldonado MD, Phone : [phone] Not Available [facility] (Lab Registration) [address] [place], [address], 09/19/2022 13:09:31 09/08/20 22 09/08/2022 CULTU RE VIRUS CP note Unles s other peace noted testi ng [facility] [address] [place] [address] [phone] Otis pace MD CLIA: [id number] Not Available [facility] (Lab Registration) [address], [place], [address], 09/21/2022 09:09:43 09/08/20 22 09/21/2022 CULTU RE VIRUS CP culvircp No virus isolat ed. Perfo rmed at: [facility] [place] [address] [facility] [place] [address] Lab Direc tor: Jaelyn maldonado MD, Phone : [phone] Not Available [facility] (Lab Registration) [address], [place], [address], 09/21/2022 09:09:43 09/08/20 22 09/08/2022 CRYPT OCOCC US ANTIG EN, CSF note Unles s other peace noted testi ng perfo [facility]med at: [facility] [address] [place] [address] [phone] Otis pace MD CLIA: [id number] Not Available [facility] (Lab Registration) [address], [place], [address], 09/22/2022 15:13:21 09/08/20 22 09/22/2022 CRYPT OCOCC US ANTIG EN, CSF cryptococcus antigen, CSF Negati ve negati ve SENT TO REFER ENCE LAB Not Available [facility] (Lab Registration) [address], [place], [address], 09/22/2022 15:13:21 09/08/20 22 09/22/2022 CRYPT OCOCC US ANTIG EN, CSF cap mandated reflex to culture Not Indica ludin Perfo rmed at: [facility] [place] [address] , [place] [address] Lab Direc tor: Jaelyn maldonado MD, Phone : [phone] Not Available [facility] (Lab Registration) [address] [place], [address], 09/22/2022 15:13:21 09/08/20 22 09/08/2022 lumba r punct ure diagn [facility] [address] [place] [address] Phone: Fax: Name: CARLITA RAM Exam Date: 2021 : [birth year] Age 67 Gender : M Access ion: [id number] Physic earnest: SAIMA MURPHY Facili ty: [facility] Facili ty HSV: Outpat ient Exam: [...] Thank you for referr CARLITA Carver to [facility]. Legall y authen ticate d by ANTONIO SUTTON 2021-10 13:22: 26 CC'ed Logic: Orderi ng Provid er: KATHERINE COVINGTON CC Provid er: ROSELYN OBANDO Attend ing Provid er: KATHERINE SAIMA Referr ing Provid er: KATHERINE COVINGTON Admitt ing Provid er: KATHERINE SAIMA rraab2 [facility] [place] [address], 09/09/2022 08:46:52 09/08/20 22 09/08/2022 lumba r punct ure (PROC ) No observ ation record ed. [email or web address] [facility] [place], [address], 09/08/2022 13:31:57 09/16/20 22 09/08/[address]22 fluor o guide needl e place ment [facility] [place] [address] Phone: Fax: Name: CARLITA RAM Exam Date: 2021 : [birth year] Age 67 Gender : M Access ion: [id number] Physic earnest: SAIMA MURPHY Facili ty: [...] Commun ity Hospit al. Legall y authen luizaate d by ANTONIO SUTTON 2021-10 07:15: 43 CC'ed Logic: Orderi ng Provid er: KATHERINE SAIMA CC Provid er: ROSELYN OBANDO Attend ing Provid er: KATHERINE SAIMA Referr ing Provid er: KATHERINE SAIMA Admitt ing Provid er: KATHERINE SAIMA rraab2 [facility] (Radiology) [address] [place], [address], 09/16/2022 08:35:51 09/16/2009/08/2022 lumba r punct ure (PROC ) No observ ation record ed. [facility] Centralized Scheduling [address] [place], [address], 09/16/2022 08:35:27 Result Notes None recorded. Procedures Surgical History Date Name Laterality Status Provider Name and Address Organization Details Recorded Time prostatectomy completed Joycealexandria [place]ord [place] - [facility] - [place] & [place] 09/09/2022 09:14:22 Cholecystectomy completed Joycealexandria Cottrell [place] - [facility] [place] [facility] [place] 09/09/2022 09:14:30 open stone operation on kidney or renal pelvis completed Joycealexandria [place] - [facility] - [place] & [place] 09/09/2022 09:14:41 procedure on eye completed Joycealexandria Cottrell [place] - [facility] - [place] & [place] 09/09/2022 09:15:06 Back Surgery completed Joycealexandria [place] - [facility] - [place] & [place] 09/09/2022 09:15:12 procedure on upper arm completed Joyce Simba [place] - [facility] - [place] & [place] 09/09/2022 09:15:32 procedure on lower leg completed Joycealexandria [place]ord [place] - [facility] - [place] & [place] 09/09/2022 09:15:41 Imaging Results None recorded. Procedure Notes None recorded. Medical Equipment None Reported. Allergies Allergen ID Allergen Name Allergen Category Reaction Reaction Severity Criticality Documentation Date Start Date Code Code System Note Provider Name and Address Organization Details Recorded Time 02975 Substance with sulfonami de structure and antibacte rial mechanism of action (substanc e) medicatio n Not available Not available Not available 09/09/2022 32216 8003 SNOMED Joyce Cottrell [facility] [place] - [facility] - [place] & [place] 2 09:13:10 Medications Name Sig Start Date Stop [...] Updated DateTime 07/14/2023 180.34 cm 27.2 kg/m2 95993.51 g 98 [degF] Jennifer Daniel [facility] & [place] 07/14/2023 09:49:59 Date Recorded Body height Body mass index (BMI) Body weight Body temperature Provider Name and Address Organization Details Last Updated DateTime 07/26/2024 180.34 cm 27.2 kg/m2 23891.51 g 98 [degF] Librado Hannah [facility] & [place] 07/26/2024 08:59:03 Date Recorded Body height Body mass index (BMI) Body weight Body temperature Oxygen saturation Oxygen saturation in Arterial blood by Pulse oximetry Heart rate Systolic blood pressure Diastolic blood pressure Provider Name and Address Organization Details Last Updated DateTime 2 180.34 cm 30.5 kg/m2 26789.7 3 g 96.4 [degF] 97 % 97 % 85 /min 140 mm[Hg] 70 mm[Hg] Joyce Cottrell [facility] & [place] 09:12:45 Date Recorded Body height Body temperature Oxygen saturation Oxygen saturation in Arterial blood by Pulse oximetry Heart rate Systolic blood pressure Diastolic blood pressure Provider Name and Address Organization Details Last Updated DateTime 2 180.34 cm 96 [degF] 98 % 98 % 92 /min 132 mm[Hg] 78 mm[Hg] Saima Murphy MD [address] [place] [address], [phone] [place] [address] & [place] 2 08:42:14 Social History None recorded. Functional Status None recorded. Mental Status None recorded. Family History Relationship Description Onset Age of this Age Resolved Age Notes LastModified by Organization Details LastModified Time Father No current problems or disability [email or web address] Not available 09/09 09:14:07 Mother No current problems or disability [email or web address] Not available 09/09 09:14:07 Medical History Condition Response Anxiety/Depression Y Hyperlipidemia Y Arthritis Y Hypertension Y Hypothyroidism Y Past Encounters Encounter ID Performer Location Encounter Start Date Encounter Closed Date Diagnosis/Indication Diagnosis SNOMED-CT Code Diagnosis ICD10 Code Diagnosis Note [id number] Saima Murphy MD [facility] [address] [place] [phone] 09/09/2022 09:00:27 09/09/2022 10:35:21 Normal pressure hydrocephalus 42255395 G91.2 improvemen t noted after high-volum e spinal tap yesterday, distinct improvemen t in gait and balance as well as overall brightness . Patient himself feels better, I will follow-up with him over the next 2 weeks. In the meantime will send informatio n to Dr. Dionna Koenig at [facility] for further evaluation have also sent spinal fluid for further testing and awaiting results. [id number] Saima Murphy MD [facility] [address] [place] [address] [place] [address] 10/07/2022 08:27:24 10/07/2022 13:13:34 Normal pressure hydrocephalus 58352447 G91.2 Distinct drop-off of gait mobility noted on today's examinatio n, interestin gly he seemed to have a 2 week window of improvemen t with gradual drop-off since mostly noted on gait stability and balance but also on some degree of mental brightness . I have recommende d follow-up with Dr.Kara Koenig [facility] and will be sending these records to her. [id number] Carlito Gould Jr, MD [facility] [address] [address] 07/14/2023 09:27:48 07/14/2023 10:28:15 Lower urinary tract symptoms due to benign prostatic hypertrophy [id number] 9101 N40.1 patient with history of BPH. He underwent a green light laser TURP [place] [address] Lee. He continues to void well. Continues on tamsulosin and finasterid e as well. We discussed that typically folks can get off of the medication s after TURP. Screening for malignant neoplasm of prostate [id number] Z12.5 patient's recent PSA was 2.0 in March 2023. Corrected for the finasterid e and this would be 4.0 in his within normal limits for his age. [id number] Carlito Gould Jr, MD [facility] [address] [address] 07/26/2024 08:53:34 07/26/2024 09:47:09 Lower urinary tract symptoms due to benign prostatic hypertrophy [id number] 9101 N40.1 patient with history of BPH. He underwent a green light laser TURP [place] [address] Lee. He continues to void well. Continues on tamsulosin and finasterid e as well. We discussed that typically folks can get off of the medication s after TURP. Screening for malignant neoplasm of prostate [id number] Z12.5 patient's recent PSA was 2.0 in [...] [place] Member ID Guarantor Name 08/17/2024 1 [place] BCBS [facility] [id number] Carlita Bearden [id number] Carlita Bearden 07/26/2024 2 [place] ([place] Carlita Bearden [id number] Carlita Bearden Notes Date Note Type [...] and activities. Patient works in the local [employer] department and was complaining of increasing difficulty [...] and headache was seen at [facility] where another MRI scan was performed, there [...] at this time. Saima Murphy MD [address] [place] [address], [phone], [facility] - [facility] - [facility] 09/09/2022 10:32:33 10/07/2022 text/html Patient follows [...] of an issue. Saima Murphy MD [address] [place] [address], [phone], [facility] & [place] 10/07/2022 09:13:08 07/14/2023 text/html patient is a 68-year-old white male who I previously saw in [place]. He transferred care to [facility] today. He has a history of [...] PSA was 2.March. Carlito Gould Jr, MD [address] [place] [address], [address], [place], [address], [place] - [facility] & [place] 07/14/2023 15:54:55 07/26/2024 text/html Patient is a [...] would be 4.0. Carlito Gould Jr, MD [address] [place] [address] Drive, [address], [place], [address], [place] - [facility] & [place] 08/16/2024 10:12:01
[2025-03-19 10:01] VITALS: BP 107/67; PULSE 74; RESP 16; O2SAT 99; BMI 27.8
--- NOTE | 2025-03-19 10:16 | EXP.PAIN.SOA ---
[facility] Disclaimer: The information contained in this section may have been updated after the patient was seen, as this information can be updated by other users. Medical History Acute sinusitis Bilateral serous otitis media Viral syndrome Hematoma of right lower extremity Contusion of right lower extremity Acute bronchitis Acute sinusitis Cough variant asthma Muscle spasms of both lower extremities Encounter for screening for malignant neoplasm of prostate Impaired glucose tolerance Encounter for immunization Left hip pain Impaired glucose tolerance Encounter for screening for malignant neoplasm of prostate Encounter for laboratory testing for COVID-19 virus Bilateral otitis media Bronchitis Acute and chronic respiratory failure with hypoxia COPD mixed type Chronic dyspnea Multiple pulmonary nodules ILD (interstitial lung disease) Restrictive lung disease History of 2019 novel coronavirus disease (COVID-19) Dyspnea on exertion Exposure to COVID-19 virus Surgical History History of surgery on arm History of nasal surgery History of cholecystectomy History of non-cataract eye surgery History of lumbar surgery Family History Mother Lung disease Social History Smoking Status: Never smoker alcohol intake: never substance use type: denies use current occupational status: other Travel in the last 8 weeks?: None household members: none housing: house PM Subjective & Objective Subjective Subjective:: Patient is a pleasant 70-year-old male who presents today for worsening hip pain along the left side. He rates his pain a 5 out of 10. Patient does state from our last visit he is officially having his MRI coming up and is scheduled to see the director of content and programming after this imaging. Patient does state that he is also had a gel injection in the right knee about 3 weeks ago and it is a little bit better however has still got quite a bit of pain in this location. Patient does state however that the left hip pain has progressively worsened from our last visit and is interfering with his ability perform activities of daily living such as cooking and cleaning. Patient does state that it is worse with pressure onto that hip area and feels like an aching sensation. Patient is interested in additional injection therapy as he does not want to get much worse. He is managed with compounded cream from our office. His Jayant has been reviewed and is appropriate. Review of Systems: General: No recent weight changes, no fever, no sleep disturbances Respiratory: No cough, no shortness of air, no recurring pulmonary infections Cardiovascular/peripheral vascular: No chest pain, no palpitations, no edema, no shortness of breath Gastrointestinal: No new onset incontinence, normal bowel movements reported Genitourinary: No new onset incontinence Musculoskeletal: Left hip pain Psychiatric: [Normal mood/affect] Neurological: [Denies weakness in extremities], [denies balance issues] Pain at rest (0-10 scale): 5 Objective Objective:: Physical Exam: General: Alert and oriented x3, no acute distress, pleasant and cooperative Lungs: Respirations even and unlabored, symmetrical chest expansion Eyes: PERRL Musculoskeletal: Flexion and extension of lumbar [spine] somewhat guarded secondary to pain, [antalgic gait noted] point tenderness along left greater trochanteric bursa Neurological: Speech clear, no gross sensory deficit Has patient had previous pain injection?: No Conservative treatment options previously tried: Home exercise plan Length of treatment: Longer than 12 weeks Meds Home Medications and Allergies Home Medications ?Medication ?Instructions ?Recorded ?Confirmed ?Type aspirin 81 mg tablet,delayed 81 mg PO DAILY 12/23/24 03/19/25 History release azelastine 137 mcg (0.1 %) nasal 1 spray intranasal BID 12/23/24 03/19/25 History spray fexofenadine 180 mg tablet 180 mg PO HS 12/23/24 03/19/25 History sertraline 50 mg tablet 50 mg PO DAILY 12/23/24 03/19/25 History tamsulosin 0.4 mg capsule 0.4 mg PO DAILY 12/23/24 03/19/25 History albuterol sulfate 90 mcg/actuation See Rx Instructions .Route 12/28/24 03/19/25 Rx aerosol inhaler .COMPLEX #8.5 grams furosemide 40 mg tablet (Lasix) 40 mg PO DAILY PRN edema #30 tabs 01/02/25 03/19/25 Rx sacubitril 24 mg-valsartan 26 mg 1 tab PO BID #60 tabs 01/02/25 03/19/25 Rx tablet (Entresto) spironolactone 25 mg tablet 25 mg PO DAILY #30 tabs 01/02/25 03/19/25 Rx trazodone 50 mg tablet See Rx Instructions .Route 01/10/25 03/19/25 Rx .COMPLEX #90 tabs finasteride 5 mg tablet See Rx Instructions .Route 01/11/25 03/19/25 Rx .COMPLEX #90 tabs fluticasone 500 mcg-salmeterol 50 1 inh inhalation BID 90 days #60 ea 01/16/25 03/19/25 Rx mcg/dose blistr powdr for inhalation (Wixela Inhub) famotidine 20 mg tablet 20 mg PO HS For GI protection #90 01/18/25 03/19/25 Rx tabs gabapentin 300 mg capsule 300 mg PO DAILY #90 caps 01/18/25 03/19/25 Rx gabapentin 300 mg capsule 600 mg (2 x 300 mg) PO HS #180 caps 01/18/25 03/19/25 Rx empagliflozin 10 mg tablet 10 mg PO DAILY 30 days #30 tabs 01/22/25 03/19/25 Rx (Jardiance) metoprolol succinate 25 mg 25 mg PO DAILY 30 days #30 tabs 01/22/25 03/19/25 Rx tablet,extended release 24 hr pantoprazole 40 mg tablet,delayed 40 mg PO DAILY 30 days #30 tabs 01/22/25 03/19/25 Rx release (Protonix) rivaroxaban 20 mg tablet 20 mg PO QPMWITHMEAL 30 days #30 01/22/25 03/19/25 Rx tabs rosuvastatin 10 mg tablet 10 mg PO DAILY Cholesterol 01/25/25 03/19/25 History naproxen 500 mg tablet 500 mg PO BID PRN Pain or 01/30/25 03/19/25 Rx inflammation #60 tabs montelukast 10 mg tablet See Rx Instructions .Route 02/02/25 03/19/25 Rx .COMPLEX #90 tabs levothyroxine 112 mcg tablet See Rx Instructions .Route 02/22/25 03/19/25 Rx .COMPLEX #90 tabs prednisone 10 mg tablet 20 mg (2 x 10 mg) PO .COMPLEX #14 02/28/25 03/19/25 Rx tabs cephalexin 250 mg capsule 250 mg PO DAILY #90 caps 03/08/25 03/19/25 Rx New Prescriptions to Start Prescriptions: Allergies Allergy/AdvReac Type Severity Reaction Status Date / Time Sulfa (Sulfonamide Allergy Intermediate Rash Verified 02/28/25 09:57 Antibiotics) Assessment and Plan *Assessment and plan (1) Greater trochanteric bursitis of left hip: Status: Acute Category: Medical Code(s): M70.62 - Trochanteric bursitis, left hip Plan Patient is experiencing worsening pain in his left hip with limited range of motion and point tenderness along his left greater trochanteric bursa during today's exam. I did discuss with the patient that I do believe he would benefit from a bursa injection. Risk and benefits were discussed with the patient and he would like to proceed forward with this plan of care. Patient has tried and failed conservative therapy including oral medication, heat and ice, topicals, at home stretching exercise for longer than 12 weeks. Patient has had left hip pain for longer than 3 months. 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 Patient has not had any bursa injections in the past from our office. Patient will be scheduled for a left greater trochanteric bursa injection under fluoroscopy. Patient has been instructed to contact the clinic with any concerns before the next appointment. Dr. Thibodeaux has reviewed this note and agrees with this plan of care. This note was dictated using voice recognition software and make contain errors or omissions. All injections are used with Lidocaine, Bupivacaine and dexamethasone. Occasionally urine drug screen is needed to verify patient's compliance with our office pain contract. This is ordered based off specific treatments related to chronic pain with the potential to abuse certain medications.
== END 2025-03-19 23:59 | disposition home or self-care (01) ==
LOC: SC.PAIN 09:45
PROVIDERS: PCP Internal Medicine; Visit Provider Nurse Practitioner Family
DX: M70.62 Trochanteric bursitis, left hip (principal)
CPT/HCPCS: 99212; G0463

== ENCOUNTER 2025-03-26 07:31 | Outpatient (CLI) | payer BC, MEDICARE, SELFPAY ==
--- OUTSIDE RECORDS SUMMARY | 2025-03-20 09:43 | XMS_ITS | Encounter Summary ---
Author Organization Healthcare Address [address] [place] [address] Care Team Providers Care Store Coordinator Name Role Phone Cristopher Gray MD Primary Care Provider [phone] Latanya Becker Unavailable [phone] Saima Esparza MD Unavailable [phone] Reason for Referral * Imaging (Routine) - Closed Specialty Diagnoses / Procedures Referred By Bharat t Referred To Contact Radiology Diagnoses Cardiomyopathy Chronic obstructive pulmonary disease, unspecified (CMS/HCC) Essential hypertension Dyspnea on exertion HFrEF (heart failure with reduced ejection fraction) (CMS/HCC) Procedures MR Cardiac Morphology and Function W Velocity Flow Mapping W and WO Contrast Bala Smith PA [address] [place] [address] [place] [address] Phone: tel: fax: Referral ID Status Reason Start Date Expiration Date Visits Re quested Visits Authorized [id number] Closed 02/13/2025 08/15/2026 1 1 Reason for Visit * Imaging (Routine) - Closed Specialty Diagnoses / Procedures Referred By Bharat esquivel Referred To Contact Radiology Diagnoses Cardiomyopathy Chronic obstructive pulmonary disease, unspecified (CMS/HCC) Essential hypertension Dyspnea on exertion HFrEF (heart failure with reduced ejection fraction) (CMS/HCC) Procedures MR Cardiac Morphology and Function W Velocity Flow Mapping W and WO Contrast Bala Smith PA [address] [place] [address] [place] [address] Phone: tel: fax: Referral ID Status Reason Start Date Expiration Date Visits Re quested Visits Authorized [id number] Closed 02/13/2025 08/15/2026 1 1 Encounter Details Date Type Department Care Team (Souleymane stephens Contact Info) Description 03/20/2025 9:43 AM EDT - 03/20/2025 11:59 PM EDT Hospital Encounter [facility] [address] [place] [address] Cecy Alston RN [facility] Cardiomyopathy; Chronic [...] Visit [place] [facility] [address] [place] [address] Latanya Becker PA [address] [place] [address] documented as of this encounter [...] left ventricular myocardial late gadolinium enhancement. Normal [place] T1 mapping and ECV is not suggestive [...] --- Tissue Characterization --- T1 Mapping: Myocardial [place] T1: 1053ms Blood pool [place] T1: 1581ms Myocardial post contrast T1: 462ms [...] --- Tissue Characterization --- T1 Mapping: Myocardial [place] T1: 1053ms Blood pool [place] T1: 1581ms Myocardial post contrast T1: 462ms [...] of left ventricular myocardiallate gadolinium enhancement. Normal [place] T1 mapping and ECV is notsuggestive of [...] LAB HEMATOLOGY METHOD 03/20/2025 12:12 PM EDT [facility] Blood Venous blood specimen / Unknown Venipuncture / Unknown 03/20/2025 11:46 AM EDT 03/20/2025 12:02 PM EDT us Katherine Lweis MD LAB BLOOD ORDERABLES Final Resu lt [facility] [address] [place] [address] documented in this encounter Visit Diagnoses Diagnosis [...] documented as of this encounter Care Teams Store Coordinator Relationship Specialty Start Date End Date Cristopher Gray MD [facility] [address] [place] [address] PCP - General 12/14/22 Latanya Becker PA [address] [facility] [address] [place] [address] Physician Automotive Sales Professional Neurosurgery 05/03/23 Saima Esparza MD [address] [place] [address] Referring Physician 05/03/23 documented as of this encounter
--- OUTSIDE RECORDS SUMMARY | 2025-03-20 13:00 | XMS_ITS | Encounter Summary ---
Author Organization Healthcare Address [address] [place] [address] Care Team Providers Care Tool Lapper Hand Name Role Phone Cristopher Gray MD Primary Care Provider [phone] Latanya Becker Unavailable [phone] Saima Esparza MD Unavailable [phone] Reason for Visit * Reason Comments Follow-up Encounter Details Date Type Department Care Team (Latest Contact Info) Description 03/20/2025 1:00 PM EDT Office Visit [place] [facility] [address], [address] [place] [address] Latanya Becker PA [address] [place] [address] Normal pressure hydrocephalus (CMS/HCC) (Primary [...] device check Maintain Dec appt [facility] Will be discussing pacer/defibrillator (25% ejection fraction) Other than the obvious avoiding tubing, no restrictions or reservations from a NS standpoint. If any MRIs are needed will just need shunt check afterward within 24 hours. Thank you. If there are any questions or concerns please feel free to contact us: [facility] Department of Neurosurgery [address] [place] [address] [place], [place] [id number] ; TIME A total of 20 minutes [...] Description 10/08/2025 9:00 AM EST Office Visit [place] [facility] [address], [address] [place] [address] Latanya Becker PA [address] [facility] [place] [address] documented as of this encounter Visit Diagnoses [...] documented as of this encounter Care Teams Tool Lapper Hand Relationship Specialty Start Date End Date Cristopher Gray MD [address] [facility] [address] [place] [address] PCP - General 12/14/22 Latanya Becker PA [address] [place] [address] Physician Cheesemaker Neurosurgery 05/03/23 Saima Esparza MD [address] [place] [address] Referring Physician 05/03/23 documented as of this encounter
--- OUTSIDE RECORDS SUMMARY | 2025-03-26 07:33 | XMS_ITS | Encounter Summary ---
Author Organization Healthcare Address [address] [place] [address] Care Team Providers Care Band Bias Machine Operator Name Role Phone Humberto Peralta MD Primary Care Provider [phone] Cristopher Gray MD Primary Care Provider [phone] Latanya Becker Unavailable [phone] Saima Esparza MD Unavailable [phone] Encounter Details Date Type Department Care Team (Late st Contact Info) Description 04/12/2022 Orders Only External Location [address] [place] [address] Provider, External Social History Tobacco Use Types Packs/Day Years Used Date Smoking Tobacco: Never Alcohol Use Standard Drinks/Week Comments No 0 (1 standard drink = 0.6 oz pur e alcohol) Sex and Gender Information Value Date Recorded Sex Assigned at Not on file Legal Sex Male 7:46 PM EDT Gender Identity Not on file Sexual Orientation Not on file documented as of this encounter Plan of Treatment Upcoming Encounters Date Type Department Care Team (Late st Contact Info) Description 10/08/2025 9:00 AM EST Office Visit [place] [facility] [address], [address] [place] [address] Latanya Becker, PA [address] [place] [address] documented as of this encounter Procedures Procedure Name Priority Date/Time Associated Diagnosis Comments MR HEAD W AND WO IV CONTRAST 04/12/2022 5:24 PM EDT documented in this encounter Results * MR Head w and wo IV Contrast (04/12/2022 5:24 PM EDT) Anatomical Region Laterality Modality Head Magnetic Resonan ce 04/12/2022 5:24 PM EDT us External Provider IMG MRI PROCEDURES Final Resul t documented in this encounter Visit Diagnoses Not on filedocumented in this encounter Care Teams Band Bias Machine Operator Relationship Specialty Start Date End Date Humberto Peralta MD [address] [place] [address] PCP - General 02/28/21 12/02/22 Cristopher Gray MD [address] [place] [address] PCP - General 12/14/22 Latanya Becker PA [address] [address] Physician Sports Broadcaster Neurosurgery 05/03/23 Saima Esparza MD [address] [place] [address] Referring Physician 05/03/23 documented as of this encounter
--- OUTSIDE RECORDS SUMMARY | 2025-03-26 07:33 | XMS_ITS | Encounter Summary ---
Author Organization Healthcare Address [address] [place] [address] Care Team Providers Care Screen Printing Inspector Name Role Phone Cristopher Gray MD Primary Care Provider [phone] Latanya Becker Unavailable Saima Esparza MD Unavailable [phone] Reason for Visit * Reason Onset Date Comments HCN - Patient Message 01/25/2025 Shunt conc erns Encounter Details Date Type Department Care Team (Late st Contact Info) Description 01/25/2025 Telephone [place] [facility] [address], [address] [place] [address] Latanya Becker, GARRISON [address] [place] [address] HCN - Patient Message (Shunt concerns) Social History Tobacco Use Types Packs/Day Years [...] on file documented as of this encounter Miscellaneous Notes * Telephone Encounter - Ratna Bacon - 01/25/2025 9:29 AM EDT Patient Phone Message Reason for Call: Pt was in local hospital for 6 days for pneumonia They want a MRI of his heart They are unable to get the answers they need to perform MRI Would like help getting MRI of heart and reprogram shunt Best contact number and optimal time of day to reach caller: [phone] / pt [phone] Note: Please do not reply to this message. Follow-up communication and further actions as a result of this message need to be communicated with the patient directly, if the patient is not active onMyChart. If the patient is active on MyChart, they will receive notification of the communication/outcome via [employer]ome[employer]. documented in this encounter Plan of Treatment Upcoming Encounters Date Type Department Care Team (Late st Contact Info) Description 10/08/2025 9:00 AM EST Office Visit [place] [facility] [address] [place] [address] Latanya Becker PA [address] [place] [address] documented as of this encounter Visit Diagnoses Not on filedocumented in this encounter Additional Health Concerns Assessment Noted Time PHQ-9 Depression Total Score: 0 10/05/20 24 8:08 AM EST A fall risk assessment has been complete d for the patient 10/05/2024 8:08 AM EST A Body Mass Index follow-up plan has been documented for the patient 10/15/2024 11:24 PM EST documented as of this encounter Care Teams Screen Printing Inspector Relationship Specialty Start Date End Date Cristopher Gray MD [address] [facility] [address] [place] [address] PCP - General 12/14/22 Latanya Becker PA [address] [place] [address] Physician Instructional Support Technician Neurosurgery 05/03/23 Saima Esparza MD [address] [place] [address] Referring Physician 05/03/23 documented as of this encounter
--- OUTSIDE RECORDS SUMMARY | 2025-03-26 07:33 | XMS_ITS | Encounter Summary ---
Author Organization Healthcare Address [address] [place] [address] Care Team Providers Care Director Dance Name Role Phone Humberto Peralta MD Primary Care Provider [phone] Cristopher Gray MD Primary Care Provider [phone] Latanya Becker Unavailable [phone] Saima Esparza MD Unavailable [phone] Encounter Details Date Type Department Care Team (Late Contact Info) Description 04/03/2022 Orders Only External Location [address] [place] [address] Saima Esparza MD [address] [place], [place] [address] Social History Tobacco Use Types Packs/Day Years [...] Encounters Date Type Department Care Team (Late Contact Info) Description 10/08/2025 9:00 AM EST Office Visit [place] [facility] [address] [place] [address] Latanya Becker PA [address] [place] [address] documented as of this encounter Procedures Procedure Name Priority Date/Time Associated Diagnosis Comments MR HEAD W AND WO IV CONTRAST 04/03/2022 8:03 AM EDT documented in this encounter Results * MR Head w and wo IV Contrast (04/03/2022 8:03 AM EDT) Anatomical Region Laterality Modality Head Magnetic Resonan ce 04/03/2022 8:03 AM EDT Saima Esparza MD IMG MRI PROCEDURES Final Result documented in this encounter Visit Diagnoses Not on filedocumented in this encounter Care Teams Director Dance Relationship Specialty Start Date End Date Humberto Peralta MD [address] [place] [address] PCP - General 02/28/21 12/02/22 Cristopher Gray MD [address] [place] [address] PCP - General 12/14/22 Latanya Becker PA [address] [phone] Physician Top Lift Compressor Neurosurgery 05/03/23 Saima Esparza MD [address] [place] [address] Referring Physician 05/03/23 documented as of this encounter
--- OUTSIDE RECORDS SUMMARY | 2025-03-26 07:33 | XMS_ITS | Encounter Summary ---
Author Organization Healthcare Address [address] [place] [address] Care Team Providers Care Locker Plant Attendant Name Role Phone Cristopher Gray MD Primary Care Provider [phone] Latanya Becker Unavailable [phone] Saima Esparza MD Unavailable [phone] Encounter Details Date Type Department Care Team (Latest Contact Info) Description 03/20/2025 Travel Social History Tobacco Use Types Packs/Day Years [...] Visit [place] [facility] [address] [place] [address] Latanya Becker, GARRISON [address] [place] [address] documented as of this encounter [...] documented as of this encounter Care Teams Locker Plant Attendant Relationship Specialty Start Date End Date Cristopher Gray MD [address] [place] [address] PCP - General 12/14/22 Latanya Bekcer PA [address] [facility] [address] [place] [address] Physician Surgical Scrub Tech Neurosurgery 05/03/23 Saima Esparza MD [address] [place], [place] [address] Referring Physician 05/03/23 documented as of this encounter
--- OUTSIDE RECORDS SUMMARY | 2025-03-26 07:33 | XMS_ITS | Encounter Summary ---
Author Organization Healthcare Address [address] [place] [address] Care Team Providers Care Oracle Application Architect Name Role Phone Cristopher Gray MD Primary Care Provider [phone] Latanya Becker Unavailable [phone] Saima Esparza MD Unavailable [phone] Encounter Details Date Type Department Care Team (Latest Contact Info) Description 03/19/2025 Travel Social History Tobacco Use Types Packs/Day [...] Visit [place] [facility] [address], [address] [place] [address] Latanya Becker, GARRISON [address] [place] [address] documented as of this encounter Visit Diagnoses Not on filedocumented in this encounter Additional Health Concerns Assessment Noted Time PHQ-9 Depression Total Score: 0 10/05/20 8:08 AM EST A fall risk assessment has been complete d for the patient 10/05/2024 8:08 AM EST A Body Mass Index follow-up plan has been documented for the patient 10/15/2024 11:24 PM EST documented as of this encounter Care Teams Oracle Application Architect Relationship Specialty Start Date End Date Cristopher Gray MD [address] [place] [address] PCP - General 12/14/22 Latanya Becker PA [address] [facility] [address] [place] [address] Physician Tiler'S Assistant Neurosurgery 05/03/23 Saima Esparza MD [address] [place] [address] Referring Physician 05/03/23 documented as of this encounter
--- OUTSIDE RECORDS SUMMARY | 2025-03-26 07:33 | XMS_ITS | Encounter Summary ---
Author Organization Healthcare Address [address] [place] [address] Care Team Providers Care Countersinker Name Role Phone Cristopher Gray MD Primary Care Provider [phone] Latanya Becker Unavailable [phone] Saima Esparza MD Unavailable [phone] Encounter Details Date Type Department Care Team (Late Contact Info) Description 03/19/2025 Telephone [facility]iology [address] [place] [address] Mary Nagy RN [facility]-DIAGNOSTIC RADIOLOGY Social History Tobacco Use Types Packs/Day Years [...] Visit [place] [facility] [address], [address] [place] [address] Latanya Becker, GARRISON [address] [place] [address] documented as of this encounter [...] documented as of this encounter Care Teams Countersinker Relationship Specialty Start Date End Date Cristopher Gray MD [facility] [address] [place] [address] PCP - General 12/14/22 Latanya Becker PA [address] [phone] Physician Sexual Assault Counselor Neurosurgery 05/03/23 Saima Esparza MD [address] [place] [address] Referring Physician 05/03/23 documented as of this encounter
--- OUTSIDE RECORDS SUMMARY | 2025-03-26 07:34 | XMS_ITS | Data Portability ---
Author Organization [facility] Vickey shi, [place] [facility] Address [address] [facility] [address] [place] [address] Care Team Providers Care Icu Manager Name Role Phone LUIS ARMANDO LEE Urologist DONG FOURNIER Sand Caster Assessment Encounter Date Assessment Date Assessment LastModified [...] available 8 09:21:32 culture, urine 2017 018 [facility] Laboratory, [address] [place] [address], [address], 8 09:59:40 Referral None recorded. Procedures None recorded. Surgeries None recorded. Imaging None recorded. Medication Orders None recorded. Patient TargetsNo targets recorded. Patient Instructions Encounter Date Encounter Id Patient Instructions Last Modified By Organization Details Last Modified Time 06/22/2019 [id number] blood in the urine: care instructions Not available 06/22/2019 09:22:18 06/25/2020 [id number] blood in the urine: care instructions Not available 06/25/2020 09:20:38 Reason for Referral None Reported. Results Created Date Observation Date Name Description Value Unit Range Abnormal Flag Note LastModifiedBy Organization Detail LastModifiedTime 02/22/20 18 02/21/2018 urina lysis , dipst ick, auto Unknown Analyte Yellow Not Available [facility] Surgery Schedule [address] [place] [address], [address], 02/21/2018 15:02:56 02/22/20 18 02/21/2018 urina lysis , dipst ick, auto Unknown Analyte Clear Not Available [facility] Surgery Schedule [address] [place], [address], 02/21/2018 15:02:56 02/22/20 18 02/21/2018 urina lysis , dipst ick, auto Unknown Analyte 1.015 Not Available [facility] Surgery Schedule [address] [place], [address], 02/21/2018 15:02:56 02/22/20 18 02/21/2018 urina lysis , dipst ick, auto Unknown Analyte 6.5 Not Available [facility] Surgery Schedule [address] [place], [address], 02/21/2018 15:02:56 02/22/20 18 02/21/2018 urina lysis , dipst ick, auto Unknown Analyte 25 Kiko/ul Trace Not Available [facility] Surgery Schedule [address] [place], [address], 02/21/2018 15:02:56 02/22/20 18 02/21/2018 urina lysis , dipst ick, auto Unknown Analyte Negati ve Not Available [facility] Surgery Schedule [address] [place], [address], 02/21/2018 15:02:56 02/22/20 18 02/21/2018 urina lysis , dipst ick, auto Unknown Analyte Trace Not Available [facility] Surgery Schedule [address] [place], [address], 02/21/2018 15:02:56 02/22/20 18 02/21/2018 urina lysis , dipst ick, auto Unknown Analyte Normal Not Available [facility] Surgery Schedule [address] [place], [address], 02/21/2018 15:02:56 02/22/20 18 02/21/2018 urina lysis , dipst ick, auto Unknown Analyte Negati ve Not Available [facility] Surgery Schedule [address] [place], [address], 02/21/2018 15:02:56 02/22/20 18 02/21/2018 urina lysis , dipst ick, auto Unknown Analyte 4 mg/dl Not Available [facility] Surgery Schedule [address] [place], [address], 02/21/2018 15:02:56 02/22/20 18 02/21/2018 urina lysis , dipst ick, auto Unknown Analyte 1 mg/dl (+) Not Available [facility] Surgery Schedule [address] [place], [address], 02/21/2018 15:02:56 02/22/20 18 02/21/2018 urina lysis , dipst ick, auto Unknown Analyte 50 Issac/ul Not Available [facility] Surgery Schedule [address] [place] [address], [address], 02/21/2018 15:02:56 02/22/20 18 02/21/2018 urina lysis , dipst ick, auto Unknown Analyte Clean Catch Not Available [facility] Surgery Schedule [address] [place] [address], [address], 02/21/2018 15:02:56 02/22/20 18 02/21/2018 urina lysis , dipst ick, auto Unknown Analyte Automa ludin Not Available [facility] Surgery Schedule [address] [place] [address], [address], 02/21/2018 15:02:56 03/17/20 18 03/17/2018 cultu re, urine results [facility] e: CCUR Colle cted: 03/17 09:09 Site: Corine shena : 03/17 11:26 URINE SCREE N(CUL TURE) FINAL 03/21 11:53 03/21 No growt h day 4. Not Available [facility] Laboratory [address] [place] [address], [address], 03/21/2018 11:53:16 03/17/20 18 03/17/2018 urina lysis , dipst ick, auto Unknown Analyte Yellow Not Available [facility] [place], [address], 03/17/2018 09:03:16 03/17/20 18 03/17/2018 urina lysis , dipst ick, auto Unknown Analyte Clear Not Available [facility] Urology [address] [place] [address], [address], 03/17/2018 09:03:16 03/17/20 18 03/17/2018 urina lysis , dipst ick, auto Unknown Analyte 1.010 Not Available [facility] Urology [address] [place] [address], [address], 03/17/2018 09:03:16 03/17/20 18 03/17/2018 urina lysis , dipst ick, auto Unknown Analyte 7.0 Not Available [facility] Urology [address], [address], 03/17/2018 09:03:16 03/17/20 18 03/17/2018 urina lysis , dipst ick, auto Unknown Analyte 500 Kiko/ul (++) Not Available [facility] [address], [address], 03/17/2018 09:03:16 03/17/20 18 03/17/2018 urina lysis , dipst ick, auto Unknown Analyte Negati ve Not Available [facility] [address], [address], 03/17/2018 09:03:16 03/17/20 18 03/17/2018 urina lysis , dipst ick, auto Unknown Analyte Negtiv e Not Available [facility] [address], [address], 03/17/2018 09:03:16 03/17/20 18 03/17/2018 urina lysis , dipst ick, auto Unknown Analyte Normal Not Available [facility] [address] [place], [address], 03/17/2018 09:03:16 03/17/20 18 03/17/2018 urina lysis , dipst ick, auto Unknown Analyte Not Available [facility] [address] [place], [address], 03/17/2018 09:03:16 03/17/20 18 03/17/2018 urina lysis , dipst ick, auto Unknown Analyte Negati ve Not Available [facility]rology [address] [place], [address], 03/17/2018 09:03:16 03/17/20 18 03/17/2018 urina lysis , dipst ick, auto Unknown Analyte Normal Not Available [facility] [address] [place], [address], 03/17/2018 09:03:16 03/17/20 18 03/17/2018 urina lysis , dipst ick, auto Unknown Analyte Negati ve Not Available [facility] [address] [place], [address], 03/17/2018 09:03:16 03/17/20 18 03/17/2018 urina lysis , dipst ick, auto Unknown Analyte 250 Issac/ul Not Available [facility] Urology [address] [place], [address], 03/17/2018 09:03:16 03/17/20 18 03/17/2018 urina lysis , dipst ick, auto Unknown Analyte Clean Catch Not Available [facility] [address] [place], [address], 03/17/2018 09:03:16 03/17/20 18 03/17/2018 urina lysis , dipst ick, auto Unknown Analyte Automa ludin Not Available [facility]rology [address] [place], [address], 03/17/2018 09:03:16 06/21/20 18 06/21/2018 urina lysis , dipst ick, auto Unknown Analyte Yellow Not Available [facility] [place], [address], 06/21/2018 09:05:06 06/21/20 18 06/21/2018 urina lysis , dipst ick, auto Unknown Analyte Clear Not Available [facility] [address] [place], [address], 06/21/2018 09:05:06 06/21/20 18 06/21/2018 urina lysis , dipst ick, auto Unknown Analyte 1.025 Not Available [facility]rology [address] [place], [address], 06/21/2018 09:05:06 06/21/20 18 06/21/2018 urina lysis , dipst ick, auto Unknown Analyte 5.0 Not Available [facility] [place], [address], 06/21/2018 09:05:06 06/21/20 18 06/21/2018 urina lysis , dipst ick, auto Unknown Analyte Negati ve Not Available [facility]rology [address] [place], [address], 06/21/2018 09:05:06 06/21/20 18 06/21/2018 urina lysis , dipst ick, auto Unknown Analyte Negati ve Not Available [facility]rology [address] [place], [address], 06/21/2018 09:05:06 06/21/20 18 06/21/2018 urina lysis , dipst ick, auto Unknown Analyte Negtiv e Not Available [facility] Urology [address] [place] [address], [address], 06/21/2018 09:05:06 06/21/20 18 06/21/2018 urina lysis , dipst ick, auto Unknown Analyte Normal Not Available [facility] [place], [address], 06/21/2018 09:05:06 06/21/20 18 06/21/2018 urina lysis , dipst ick, auto Unknown Analyte Negati ve Not Available [facility] [address] [place] [address], [address], 06/21/2018 09:05:06 06/21/20 18 06/21/2018 urina lysis , dipst ick, auto Unknown Analyte 1 mg/dl Not Available [facility] [address] [place] [address], [address], 06/21/2018 09:05:06 06/21/20 18 06/21/2018 urina lysis , dipst ick, auto Unknown Analyte 1 mg/dl (+) Not Available [facility] [address] [place] [address], [address], 06/21/2018 09:05:06 06/21/20 18 06/21/2018 urina lysis , dipst ick, auto Unknown Analyte Negati ve Not Available [facility] [address] [place] [address], [address], 06/21/2018 09:05:06 06/21/20 18 06/21/2018 urina lysis , dipst ick, auto Unknown Analyte Clean Catch Not Available [facility] [address] [place] [address], [address], 06/21/2018 09:05:06 06/21/20 18 06/21/2018 urina lysis , dipst ick, auto Unknown Analyte Automa ludin Not Available [facility] [address] [place] [address], [address], 06/21/2018 09:05:06 06/22/20 19 06/22/2019 PSA, serum [...] ce of disea se. Not Available [facility] Laboratory [address] [place] [address], [address], 06/22/2019 09:44:31 06/22/2006/22/2019 urina lysis , micro scopi c RBC, urine 3-10 0-2/hp f abnormal Not Available [facility] Laboratory [address] [place] [address], [address], 06/22/2019 11:39:55 06/22/2006/22/2019 urina lysis , micro scopi c squamous epi. cells OCCASI ONAL 0-5/hp f normal Not Available [facility] Laboratory [address] [place] [address], [address], 06/22/2019 11:39:55 06/22/2006/22/2019 urina lysis , dipst ick, auto Unknown Analyte Yellow Not Available [facility] [address] [place], [address], 06/22/2019 09:08:28 06/22/2006/22/2019 urina lysis , dipst ick, auto Unknown Analyte Clear Not Available [facility] [address] [place], [address], 06/22/2019 09:08:28 06/22/2006/22/2019 urina lysis , dipst ick, auto Unknown Analyte 1.020 Not Available [facility] [address] [place] [address], [address], 06/22/2019 09:08:28 06/22/2006/22/2019 urina lysis , dipst ick, auto Unknown Analyte 5.0 Not Available [facility] [place], [address], 06/22/2019 09:08:28 06/22/2006/22/2019 urina lysis , dipst ick, auto Unknown Analyte Negati ve Not Available [facility]rology [address] [place] [address], [address], 06/22/2019 09:08:28 06/22/2006/22/2019 urina lysis , dipst ick, auto Unknown Analyte Negati ve Not Available [facility] [address] [place] [address], [address], 06/22/2019 09:08:28 06/22/2006/22/2019 urina lysis , dipst ick, auto Unknown Analyte Negtiv e Not Available [facility] [address] [place] [address], [address], 06/22/2019 09:08:28 06/22/2006/22/2019 urina lysis , dipst ick, auto Unknown Analyte Normal Not Available [facility]rology [address] [place] [address], [address], 06/22/2019 09:08:28 06/22/2006/22/2019 urina lysis , dipst ick, auto Unknown Analyte Negati ve Not Available [facility] [address] [place] [address], [address], 06/22/2019 09:08:28 06/22/2006/22/2019 urina lysis , dipst ick, auto Unknown Analyte Normal Not Available [facility]rology [address] [place] [address], [address], 06/22/2019 09:08:28 06/22/2006/22/2019 urina lysis , dipst ick, auto Unknown Analyte Negati ve Not Available [facility]rology [address] [place], [address], 06/22/2019 09:08:28 06/22/20 19 06/22/2019 urina lysis , dipst ick, auto Unknown Analyte 50 Issac/ul Not Available [facility] [address] [place] [address], [address], 06/22/2019 09:08:28 06/22/20 19 06/22/2019 urina lysis , dipst ick, auto Unknown Analyte Clean Catch Not Available [facility] [address] [place] [address], [address], 06/22/2019 09:08:28 06/22/20 19 06/22/2019 urina lysis , dipst ick, auto Unknown Analyte Automa ludin Not Available [facility] [address], [address], 06/22/2019 09:08:28 06/26/20 19 06/26/2019 creat inine , blood creatinine, fs mg/dL M 0.7-1. 3 F0.6-1 .1 Not Available [facility] [address] [place] [address], [address], 06/26/2019 09:15:52 07/07/20 19 07/07/2019 bun (bloo d urea nitro gen), serum or plasm a blood urea nitrogen 17 mg/dL 6-20 normal Not Available [facility] Laboratory [address] [place] [address], [address], 07/07/2019 12:34:39 07/07/20 19 07/07/2019 creat inine , serum or plasm a creatinine 1.15 mg/dL 0.70-1 .25 normal Not Available [facility] Laboratory [address] [place] [address], [address], 07/07/2019 12:34:40 07/19/20 07/19/2019 cytol ogy, non-g [...] Page 1 of 1 Not Available [facility] Laboratory [address] [place] [address], [address], 07/21/2019 15:10:54 07/19/20 19 07/19/2019 urina lysis , dipst ick, auto Unknown Analyte Yellow Not Available [facility] Surgery Schedule [address] [place] [address], [address], 07/19/2019 13:40:38 07/19/20 19 07/19/2019 urina lysis , dipst ick, auto Unknown Analyte Clear Not Available [facility] Surgery Schedule [address] [place], [address], 07/19/2019 13:40:38 07/19/2007/19/2019 urina lysis , dipst ick, auto Unknown Analyte 1.020 Not Available [facility] Surgery Schedule [address] [place], [address], 07/19/2019 13:40:38 07/19/20 19 07/19/2019 urina lysis , dipst ick, auto Unknown Analyte 5.0 Not Available [facility] Surgery Schedule [address] [place], [address], 07/19/2019 13:40:38 07/19/20 19 07/19/2019 urina lysis , dipst ick, auto Unknown Analyte Negati ve Not Available [facility] Surgery Schedule [address] [place], [address], 07/19/2019 13:40:38 07/19/20 19 07/19/2019 urina lysis , dipst ick, auto Unknown Analyte Negati ve Not Available [facility] Surgery Schedule [address] [place], [address], 07/19/2019 13:40:38 07/19/2007/19/2019 urina lysis , dipst ick, auto Unknown Analyte Negtiv e Not Available [facility] Surgery Schedule [address] [place], [address], 07/19/2019 13:40:38 07/19/2007/19/2019 urina lysis , dipst ick, auto Unknown Analyte Normal Not Available [facility] Surgery Schedule [address] [place], [address], 07/19/2019 13:40:38 07/19/2007/19/2019 urina lysis , dipst ick, auto Unknown Analyte Negati ve Not Available [facility] Surgery Schedule [address] [place] [address], [address], 07/19/2019 13:40:38 07/19/20 19 07/19/2019 urina lysis , dipst ick, auto Unknown Analyte Normal Not Available [facility] Surgery Schedule [facility] [place], [address], 07/19/2019 13:40:38 07/19/20 19 07/19/2019 urina lysis , dipst ick, auto Unknown Analyte Negati ve Not Available [facility] Surgery Schedule [address] [place] [address], [address], 07/19/2019 13:40:38 07/19/20 19 07/19/2019 urina lysis , dipst ick, auto Unknown Analyte 50 Issac/ul Not Available [facility] Surgery Schedule [address] [place], [address], 07/19/2019 13:40:38 07/19/20 19 07/19/2019 urina lysis , dipst ick, auto Unknown Analyte Clean Catch Not Available [facility] Surgery Schedule [address] [place], [address], 07/19/2019 13:40:38 07/19/20 19 07/19/2019 urina lysis , dipst ick, auto Unknown Analyte Automa ludin Not Available [facility] Surgery Schedule [address] [place], [address], 07/19/2019 13:40:38 06/25/2006/25/2020 urina lysis , dipst ick Unknown Analyte Straw Not Available [facility] [address] [place] [address], [address], 06/25/2020 08:58:13 06/25/2006/25/2020 urina lysis , dipst ick Unknown Analyte Clear Not Available [facility] [address] [place] [address], [address], 06/25/2020 08:58:13 06/25/2006/25/2020 urina lysis , dipst ick Unknown Analyte 1.030 Not Available [facility] [address] [place] [address], [address], 06/25/2020 08:58:13 06/25/2006/25/2020 urina lysis , dipst ick Unknown Analyte 1.003 - 1.035 Not Available [facility]rology [address] [place] [address], [address], 06/25/2020 08:58:13 06/25/2006/25/2020 urina lysis , dipst ick Unknown Analyte 5.0 Not Available [facility]rology [address] [place] [address], [address], 06/25/2020 08:58:13 06/25/202020 urina lysis , dipst ick Unknown Analyte 5.0 - 8.0 Not Available [facility] [address] [place] [address], [address], 06/25/2020 08:58:13 06/25/2006/25/2020 urina lysis , dipst ick Unknown Analyte Negati ve Not Available [facility] [address], [address], 06/25/2020 08:58:13 06/25/2006/25/2020 urina lysis , dipst ick Unknown Analyte Negati ve Not Available [facility] [address], [address], 06/25/2020 08:58:13 06/25/2006/25/2020 urina lysis , dipst ick Unknown Analyte Negati ve Not Available [address], [address], 06/25/2020 08:58:13 06/25/2006/25/2020 urina lysis , dipst ick Unknown Analyte Negati ve Not Available [address], [address], 06/25/2020 08:58:13 06/25/2006/25/2020 urina lysis , dipst ick Unknown Analyte Negati ve Not Available [facility] [address], [address], 06/25/2020 08:58:13 06/25/2006/25/2020 urina lysis , dipst ick Unknown Analyte Negati ve - Trace Not Available [address], [address], 06/25/2020 08:58:13 06/25/2006/25/2020 urina lysis , dipst ick Unknown Analyte Normal Not Available [facility] [address] [place], [address], 06/25/2020 08:58:13 06/25/2006/25/2020 urina lysis , dipst ick Unknown Analyte Normal Not Available [facility]rology [address] [place] [address], [address], 06/25/2020 08:58:13 06/25/2006/25/2020 urina lysis , dipst ick Unknown Analyte Negati ve Not Available [facility] [address] [place] [address], [address], 06/25/2020 08:58:13 06/25/2006/25/2020 urina lysis , dipst ick Unknown Analyte Negati ve Not Available [facility] [address] [place] [address], [address], 06/25/2020 08:58:13 06/25/2006/25/2020 urina lysis , dipst ick Unknown Analyte Normal Not Available [facility]rology [address] [place] [address], [address], 06/25/2020 08:58:13 06/25/2006/25/2020 urina lysis , dipst ick Unknown Analyte Normal - 1mg/dl Not Available [facility] [address] [place] [address], [address], 06/25/2020 08:58:13 06/25/2006/25/2020 urina lysis , dipst ick Unknown Analyte Negati ve Not Available [facility] [address] [place] [address], [address], 06/25/2020 08:58:13 06/25/2006/25/2020 urina lysis , dipst ick Unknown Analyte Negati ve Not Available [facility] [address] [place] [address], [address], 06/25/2020 08:58:13 06/25/20 20 06/25/2020 urina lysis , dipst ick Unknown Analyte Negati ve Not Available [facility]rology [address], [address], 06/25/2020 08:58:13 06/25/20 20 06/25/2020 urina lysis , dipst ick Unknown Analyte Negati ve Not Available [address], [address], 06/25/2020 08:58:13 06/25/20 20 06/25/2020 urina lysis , dipst ick Unknown Analyte Clean Catch Not Available [address], [address], 06/25/2020 08:58:13 06/25/20 20 06/25/2020 urina lysis , dipst ick Unknown Analyte Visual Not Available [facility]rology [address], [address], 06/25/2020 08:58:13 07/07/20 19 07/07/2019 CT, abdom en + pelvi s, w/wo contr ast [address] [address] Paticlarisa t Name: CARLITA Ken t : [birth year] 51 Paticlarisa t 4 Orderi [facility] er: LUIS ARMANDO GRANT OR EXAM DATE: 2018 EXAM: CT [facility] QUE: Multip le axial CT images of the abdome n were obtain ed before and in the combin ed nephro graphi c and excret ory phases after a split bolus IV inject ion of Optira y320 (1 x 100ml bottle [facility] 0019-1 323-11 ). Bowel was marked with [...] MD on 019 1:53 PM [email or web address] [facility] Radiology [facility] [address] [place], [address], 07/10/2019 08:31:12 Result Notes None recorded. Problems Name Problem SNOMED Code Status Onset Date Resolution Date Notes Provider Name and Address Organization Details Recorded Time Mixed conductiv e AND sensorine ural hearing loss 69568500 Active 2015 From Automated Load;Prov ider: Dong Fournier;Yeyo tatus: Active Not Available [facility] 7 06:42:18 Lower urinary tract symptoms due to benign prostatic hypertrop hy 96305123242 101 Active 2014 From Automated Load;Prov ider: Luis Armando Lee;St atus: Active Not Available [facility] 6 07:50:29 Prostate specific antigen above reference range 004204321 Active 2014 From Automated Load;Prov ider: Luis Armando Lee;St atus: Active Not Available [facility] 6 07:50:29 Microscop ic hematuria 649779022 Active 2014 From Automated Load;Prov ider: Luis Armando Lee;St atus: Active Not Available [facility] 6 07:50:29 Acute non-suppu rative serous otitis media 885744696 Active 2015 From Automated Load;Prov ider: Dong Fournier;S tatus: Active Not Available [facility] 6 07:50:29 Conductiv e hearing loss 95798420 Active 2015 From Automated Load;Prov ider: Dong Fournier;S tatus: Active Not Available [facility] 6 07:50:29 Problem Notes None recorded. Procedures Surgical History Date Name Laterality Status Provider Name and Address Organization Details Recorded Time 0 Post Void Residual; Ultrasound completed Gunjan Kapadia [facility] 06/25/2020 09:08:12 9 Cystoscopy - male completed LUIS ARMANDO LEE MD [address] [place], [address], [facility] 07/19/2019 14:20:36 09/05/201 9 Post Void Residual; Ultrasound completed Thamina [facility] 06/22/2019 09:08:21 8 Post Void Residual; Ultrasound completed Xiomara Garibay [facility] 06/21/2018 09:08:03 8 Post Void Residual; Ultrasound completed Jacquie Kiser [facility] 03/17/2018 09:08:30 8 Uroflowmetry; Complex completed [facility] 02/28/2018 09:30:39 8 Cystoscopy - male completed LUIS ARMANDO LEE MD [address] [place], [address], [facility] 02/21/2018 08:28:57 8 Post Void Residual; Ultrasound completed Lily Deans [facility] 02/01/2018 09:42:56 7 Post Void Residual; Ultrasound completed [facility] 08/03/2017 09:02:42 7 EXTRA CORPOREAL SHOCK WAVE LITHOTRIPSY (SURG) completed LUIS ARMANDO LEE MD [address] [place], [address], [facility] 03/22/2017 12:37:31 7 Post Void Residual; Ultrasound completed Bhargavi Ellison [facility] 01/25/2017 11:08:55 6 Post Void Residual; Catheter completed Bhargavi Ellison [facility] 10/15/2016 08:35:18 6 Audiogram completed RODRIGO ARRIOLA [address] [place], [address], [facility] 10/07/2016 10:20:39 Imaging Results None recorded. Procedure Notes None recorded. Medical Equipment None Reported. Allergies Allergen ID Allergen Name Allergen Category Reaction Reaction Severity Criticality Documentation Date Start Date Code Code System Note Provider Name and Address Organization Details Recorded Time 413230 Substance with sulfonami de structure and antibacte rial mechanism of action (substanc e) medicatio n Not available Not available Not available 09/11/20162010 76865 8003 SNOMED Comme nt: Creat ed By: Ailyn alvin reynaCre ated Date: 2010 1:02: 38 PM; Not Available [facility] 6 02:54:27 Medications Name Sig Start Date [...] Shingrix (PF) 50 mcg/0.5 mL intramusc ular johnnie leahy kit 06/25 completed Not Available Not Available Not Available Vitals Date Recorded Body height Body mass index (BMI) Body weight Provider Name and Address Organization Details Last Updated DateTime 03/17/2018 180.34 cm 27.2 kg/m2 30384.51 g Jacquie Kiser [facility] 03/17/2018 09:02:58 Date Recorded Body height Body mass index (BMI) Body weight Provider Name and Address Organization Details Last Updated DateTime 06/21/2018 180.34 cm 27.2 kg/m2 17236.51 g Xiomara Tianham [facility] 06/21/2018 09:04:49 Date Recorded Body height Body mass index (BMI) Body weight Body temperature Provider Name and Address Organization Details Last Updated DateTime 06/22/2019 180.34 cm 27.2 kg/m2 68501.51 g 98 [degF] Tahmina Fouzia [facility] 06/22/2019 09:05:56 Date Recorded Body weight Body mass index (BMI) Body height Provider Name and Address Organization Details Last Updated DateTime 06/25/2020 42298.51 g 27.2 kg/m2 180.34 cm Gunjan Kapadia [facility] 06/25/2020 08:56:38 Social History Question Answer Notes LastModified by [employer] Details LastModified Time Tobacco Smoking Status [facility] 09:19:00 How Much Tobacco Do You Chew? None [email or web address] Information not available 06/25/2020 What Was The Date Of Your Most Recent Tobacco Screening? 06/21/2018 Information n ot available 12/05/2019 How Much Tobacco Do You Smoke? No [email or web address] Information not available 06/25/2020 How Many Years Have You Smoked Tobacco? 0 [email or web address] Information not available 06/25/2020 Sex: Unknown Functional Status Question Answer Note LastModified by Organizat ion Details LastModified Time What is your level of alcohol consumption? Occasional [email or web address] Information not available 06/25/2020 Do you or have you ever used smokeless tobacco? Never used smokeless tobacco [email or web address] Information not available 06/25/2020 Do you or have you ever used e-cigarettes or vape? Never used electronic cigarettes [email or web address] Information not available 06/25/2020 Mental Status None recorded. Family History Nothing Reported. Medical History Condition Response High Cholesterol Y Hypertension Y Past Encounters Encounter ID Performer Location Encounter Start Date Encounter Closed Date Diagnosis/Indication Diagnosis SNOMED-CT Code Diagnosis ICD10 Code Diagnosis Note [id number] DONG FOURNIER MD [facility]NT [place] [address] [place] [address] 1 10/07/2016 08:57:35 10/07/2016 12:06:38 Chronic serous otitis media 98820435 H65.[address] and patent. Hearing improved.a udiogram reviewed Acute sinusitis 64498646 J01.90 [id number] DONG FOURNIER MD [facility] [address] [place] [address] 1 10/07/2016 09:54:51 10/07/2016 10:21:42 Sensorineural hearing loss of bilateral ears 176462134 H90.3 [id number] LUIS ARMANDO LEE MD UROLOGY [facility] [address] [place] [address] 1 10/15/2016 07:35:58 10/15/2016 09:12:15 Lower urinary tract symptoms due to benign prostatic hypertrophy 2518694445 9101 N40.1 Benign pro static hyperplasia 243840810 N40.1 Microscopic hematuria 19 2783161 R31.21 Incomplete emptying of urinary bladder 302374195 R39.14 [id number] LUIS ARMANDO LEE MD UROLOGY [facility] [address] [place] [address] 1 01/25/2017 10:48:50 01/25/2017 12:53:18 Benign prostatic hyperplasia with outflow obstruction 619126885 N40.1 Microscopic hematuria 19 3312764 R31.21 [id number] DONG FOURNIER MD ENT [facility] [address] [place] [address] 1 01/25/2017 10:48:50 01/25/2017 12:53:18 Chronic serous otitis media 39919963 H65.[address] and patent. f/u 6 mo [id number] LUIS ARMANDO LEE MD UROLOGY [facility] [address] [place] [address] 1 03/08/2017 07:58:58 03/08/2017 09:23:26 Ureteric stone 38320171 N20.1 [id number] LUIS ARMANDO LEE MD UROLOGY [facility] [address] [place] [address] 1 04/01/2017 09:27:16 04/01/2017 10:33:05 Kidney stone 57873856 N20.0 [id number] LUIS ARMANDO LEE MD UROLOGY [facility] [address] [place] [address] 1 08/03/2017 08:41:11 08/03/2017 09:54:35 Benign prostatic hyperplasia with outflow obstruction 658642445 N40.1 Incomplete emptying of urinary bladder 750593100 R39.14 History of calculus of kidney 636292203 Z87.015 [id number] DONG FOURNIER MD ENT [facility] [address] [place] [address] 1 08/11/2017 09:03:32 08/11/2017 09:36:45 Chronic serous otitis media 20064378 H65.23 both tubes extruded and tm's look fine. No fluid present. F/U prn [id number] LUIS ARMANDO LEE MD UROLOGY [facility] [address] [place] [address] 1 02/01/2018 09:03:07 02/01/2018 10:09:37 Benign prostatic hyperplasia with outflow obstruction 700339953 N40.1 Incomplete emptying of urinary bladder 018017608 R39.14 [id number] LUIS ARMANDO LEE MD SURGERY SCHEDULE [address] [place] [address] 1 02/21/2018 06:32:25 02/21/2018 06:32:56 [id number] LUIS ARMANDO LEE MD UROLOGY [facility] [address] [place] [address] 1 02/28/2018 09:08:03 03/01/2018 15:54:44 Lower urinary tract symptoms due to benign prostatic hypertrophy 9504186990 9101 N40.1 [id number] LUIS ARMANDO LEE MD UROLOGY [facility] [address] [place] [address] 1 03/17/2018 08:50:49 03/17/2018 09:35:44 Acute urinary tract infection 662995619 N39.0 Benign pro static hyperplasia with outflow obstruction 098202813 N40.1 Incomplete emptying of urinary bladder 395526349 R39.14 [id number] LUIS ARMANDO LEE MD UROLOGY [facility] [address] [place] [address] 1 06/21/2018 08:55:40 06/21/2018 09:57:45 Benign prostatic hyperplasia with outflow obstruction 106532593 N40.1 [id number] LUIS ARMANDO LEE MD UROLOGY [facility] [address] [place] [address] 1 06/22/2019 08:39:54 06/22/2019 09:24:17 Benign prostatic hyperplasia with outflow obstruction 379103601 N40.1 Blood in urine 06633206 R31.9 [id number] LUIS ARMANDO LEE MD SURGERY SCHEDULE [address] [place] [address] 1 07/19/2019 12:34:50 07/19/2019 12:36:34 [id number] LUIS ARMANDO LEE MD UROLOGY [facility] [address] [place] [address] 1 06/25/2020 08:51:24 06/25/2020 10:03:45 Benign prostatic hyperplasia with outflow obstruction 365380678 N40.1 Microscopic hematuria 19 2881272 R31.21 Health Concerns Section Related Observation LastModified by Organization Detai ls LastModified Time None Recorded Concern Status LastModified by Organization Details LastModified Time None Recorded Advance Directives Directive None Recorded Payers Insurance Date Sequence Insurance Name Policy Number Policy [place] Covered Member ID [place] Member ID Guarantor Name 06/21/2018 2 [facility] (MEDICARE REPLACEMENT/A DVANTAGE - PPO) [id number] Carlita Bearden [id number] Carlita Bearden 06/22/2020 2 [place] Carlita Bearden [id number] Carlita Bearden 06/25/2020 1 [place] [id number] Carlita Bearden II [id number] Carlita Bearden 04/22/2018 2 [place] Carlita Bearden [id number] Carlita Bearden Notes Date Note Type Note [...] frequency or dysuria. LUIS ARMANDO LEE MD [address] [place] [address], [phone], [facility] 03/17/2018 09:22:08 06/21/2018 text/html Mr. Bearden returns today for follow-up of BPH with severe incomplete bladder emptying. He underwent greenlight laser vaporization of the prostate in February. His preoperative residuals were over 500 mL. Overall he is very pleased. He has occasional mild postvoid dribbling. No dysuria or hematuria. LUIS ARMANDO LEE MD [address] [place] [address], [phone], [facility] 06/21/2018 09:16:40 06/22/2019 text/html Mr. Bearden [...] hematuria. No dysuria. LUIS ARMANDO LEE MD [address] [place] [address], [phone], [facility] 06/22/2019 09:22:52 06/25/2020 text/html Mr. Bearden [...] a year ago. LUIS ARMANDO LEE MD [address] [place] [address] [place], [address], [facility] 06/25/2020 09:21:17
--- OUTSIDE RECORDS SUMMARY | 2025-03-26 07:34 | XMS_ITS | Data Portability ---
Author Organization [facility] and [facility] Address [address] [place] [address] Assessment No assessment recorded. Plan of Treatment [...] CSF 64 mg/dL 15-45 high Not Available [facility] (Lab Registration) [address], [place], [address], 09/08/2022 13:00:50 09/08/20 22 09/08/2022 TOTAL PROTE IN CSF note Unles s other peace noted testi ng perfo rmed at: [facility] [address] [place] [address] [phone] Otis pace MD CLIA: [id number] Not Available [facility] (Lab Registration) [place], [address], 09/08/2022 13:00:50 09/08/20 22 09/08/2022 GLUCO SE CSF QUANT glucose CSF quant 69 mg/dL 40-75 Not Available [facility] (Lab Registration) [address] [place], [address], 09/08/2022 13:00:51 09/08/20 22 09/08/2022 GLUCO SE CSF QUANT note Unles s other peace noted testi ng perfo rmed at: [facility] [address] [place] [address] [phone] Otis pace MD CLIA: [id number] Not Available [facility] (Lab Registration) [address] [place], [address], 09/08/2022 13:00:51 09/08/20 22 09/08/2022 CELL COUNT CSF CSF tube # TUBE # 3 Not Available [facility] (Lab Registration) [address] [place], [address], 09/08/2022 13:38:05 09/08/2009/08/2022 CELL COUNT CSF CSF color COLORL ESS colorl ess Not Available [facility] (Lab Registration) [address] [place], [address], 09/08/2022 13:38:05 09/08/2009/08/2022 CELL COUNT CSF CSF apperance CLEAR clear Not Available [facility] (Lab Registration) [address] [place], [address], 09/08/2022 13:38:05 09/08/20 22 09/08/2022 CELL COUNT CSF volume 35 mL Not Available [facility] (Lab Registration) [address] [place], [address], 09/08/2022 13:38:05 09/08/2009/08/2022 CELL COUNT CSF CSF WBC count 13 /uL 0-5 high Not Available [facility] (Lab Registration) [address] [place], [address], 09/08/2022 13:38:05 09/08/20 22 09/08/2022 CELL COUNT CSF CSF RBC count 2 /uL 0-1 high Not Available [facility] (Lab Registration) [address] [place], [address], 09/08/2022 13:38:05 09/08/20 22 09/08/2022 CELL COUNT CSF polynuclear 0 % Not Available [facility] (Lab Registration) [address] [place], [address], 09/08/2022 13:38:05 09/08/20 22 09/08/2022 CELL COUNT CSF mononuclear 100 % Not Available [facility] (Lab Registration) [address] [place], [address], 09/08/2022 13:38:05 09/08/2009/08/2022 CELL COUNT CSF note Unles s other peace noted testi ng perfo rmed at: [facility] [address] [place] [address] [phone] Otis pace MD CLIA: [id number] Not Available [facility] (Lab Registration) [address] [place], [address], 09/08/2022 13:38:05 09/08/20 22 09/08/2022 GRAM STAIN BODY FLUID specimen source CSF Not Available [facility] (Lab Registration) [address] [place], [address], 09/08/2022 13:58:51 09/08/2009/08/2022 GRAM STAIN BODY FLUID gram stain organism 1 NONE SEEN Not Available [facility] (Lab Registration) [address] [place], [address], 09/08/2022 13:58:51 09/08/20 22 09/08/2022 GRAM STAIN BODY FLUID note Unles s other peace noted testi ng perfo rmed at: [facility] [address] [place] [address] [phone] Otis pace MD CLIA: [id number] Not Available [facility] (Lab Registration) [address] [place], [address], 09/08/2022 13:58:51 09/08/20 22 09/08/2022 CULTU RE CSF results MRB 09-09 836 No Growt h at Day 1 MRB 09-10 600 No Growt h at Day 2 LT 09-11 534 No Growt h at Day 3 Not Available [facility] (Lab Registration) [address] [place], [address], 09/11/2022 05:35:53 09/08/20 22 09/08/2022 CULTU RE CSF note Unles s other peace noted testi ng perfo rmed at: [facility] [address] [place] [address] [phone] Otis pace MD CLIA: [id number] Not Available [facility] (Lab Registration) [address] [place], [address], 09/11/2022 05:35:53 09/08/20 22 09/08/2022 VDRL CSF QUAL note Unles s other peace noted testi ng perfo rmed at: [facility] [address] [place] [address] [phone] Otis pace MD CLIA: [id number] Not Available [facility] (Lab Registration) [address] [place], [address], 09/12/2022 04:08:24 09/08/2009/12/2022 VDRL CSF QUAL vdrl CSF Not Available [facility] (Lab Registration) [address] [place], [address], 09/12/2022 04:08:24 09/08/20 22 09/08/2022 MULTI PLE SCLER OSIS( MS) PROFI LE note Unles s other peace noted testi ng perfo rmed at: [facility] jamil gonzalez [address] [place] [address] [phone] Otis pace MD CLIA: [id number] Not Available [facility] (Lab Registration) [address] [place], [address], 09/14/2022 15:10:12 09/08/20 22 09/14/2022 MULTI PLE SCLER OSIS( MS) PROFI LE albumin TNP g/dL Test not perfo rmed. No serum gel recei shena. Conta ct: Talisha somers Jasonme ter 09-11 Not Available [facility] (Lab Registration) [address] [place], [address], 09/14/2022 15:10:12 09/08/20 22 09/14/2022 MULTI PLE SCLER OSIS( MS) PROFI LE immunoglobul in g, qn, serum TNP mg/dL Test not perfo rmed. No serum gel recei shena. Conta ct: Dinotrevor na Vanme ter 09-11 SENT TO REFER ENCE LAB Not Available [facility] (Lab Registration) [address] [place], [address], 09/14/2022 15:10:12 09/08/20 22 09/14/2022 MULTI PLE SCLER OSIS( MS) PROFI LE albumin, CSF 28 mg/dL 15-55 Not Available [facility] (Lab Registration) [address] [place], [address], 09/14/2022 15:10:12 09/08/20 22 09/14/2022 MULTI PLE SCLER OSIS( MS) PROFI LE IgG, quant, CSF 2.0 mg/dL 0.0-10 .3 Not Available [facility] (Lab Registration) [address] [place], [address], 09/14/2022 15:10:12 09/08/20 22 09/14/2022 MULTI PLE SCLER OSIS( MS) PROFI LE CSF IgG index TNP Unabl e to calcu late resul t since non-n umeri c resul t obtai glenn for compo nent test. Not Available [facility] (Lab Registration) [address] [place], [address], 09/14/2022 15:10:12 09/08/20 22 09/14/2022 MULTI PLE SCLER OSIS( MS) PROFI LE oligoclonal banding -serum TNP Test not perfo rmed. No serum gel recei shena. Conta ct: Talisha yonis Del Angel ter 09-11 Not Available [facility] (Lab Registration) [address] [place], [address], 09/14/2022 15:10:12 09/08/20 22 09/14/2022 MULTI PLE [...] break down >100 [facility] [address] [id number] [facility] Lab Direc tor: Cain patton PhD, Phone : [phone] Not Available [facility] (Lab Registration) [address] [place], [address], 09/14/2022 15:10:12 09/08/20 22 09/14/2022 MULTI PLE SCLER OSIS( MS) PROFI LE IgG/alb ratio, CSF 0.07 0.00-0 .25 Not Available [facility] (Lab Registration) [address] [place], [address], 09/14/2022 15:10:12 09/08/20 22 09/14/2022 MULTI PLE SCLER OSIS( MS) PROFI LE IgG, syn rate, CSF TNP mg/da y Unabl e to calcu late resul t since non-n umeri c resul t obtai glenn for compo nent test. Not Available [facility] (Lab Registration) [address], [place], [address], 09/14/2022 15:10:12 09/08/20 22 09/14/2022 MULTI PLE [...] oblot ting metho dolog y. Not Available [facility] (Lab Registration) [address], [place], [address], 09/14/2022 15:10:12 09/08/20 22 09/08/2022 ANGIO TENSI N CONVE RT ENZ., CSF note Unles s other peace noted testi ng perfo rmed at: [facility] [address] [place] [address] [phone] Otis pace MD CLIA: [id number] Not Available [facility] (Lab Registration) [address] , [place], [address], 09/14/2022 18:08:47 09/08/20 22 09/14/2022 ANGIO TENSI N CONVE RT ENZ., CSF angiotensin convert enz, CSF <1.5 U/L 0.0-3. 1 Speci men Comme nt: Test( s) 73080 2-SHARON , CSF Speci men Comme nt: resul ts are label ed for resea rch purpo ses only by the Speci men Comme nt: assay 's manuf actur er. The perfo rmanc e hugo acter istic s of Speci men Comme nt: this assay have not been estab lishe d by e [facility] actur er. Speci men Comme nt: [...] at: - [facility] [place] [address] [facility] , [place] [address] Lab Direc tor: Jaelyn maldonado MD, Phone : [phone] Not Available [facility] (Lab Registration) [address], [place], [address], 09/14/2022 18:08:47 09/08/20 22 09/08/2022 LYME, LINE BLOT, CSF note Unles s other peace noted testi ng perfo rmed at: [facility] [address] [place] [address] [phone] Otis pace MD CLIA: [id number] Not Available [facility] (Lab Registration) [address] [place], [address], 09/19/2022 13:09:31 09/08/20 22 09/19/2022 LYME, LINE BLOT, CSF P93 Ab. IgG Absent Not Available [facility] (Lab Registration) [address] [place], [address], 09/19/2022 13:09:31 09/08/20 22 09/19/2022 LYME, LINE BLOT, CSF P66 Ab. IgG Absent Not Available [facility] (Lab Registration) [address] [place], [address], 09/19/2022 13:09:31 09/08/20 22 09/19/2022 LYME, LINE BLOT, CSF P58 Ab. IgG Absent Not Available [facility] (Lab Registration) [address] [place], [address], 09/19/2022 13:09:31 09/08/20 22 09/19/2022 LYME, LINE BLOT, CSF P45 Ab. IgG Absent Not Available [facility] (Lab Registration) [address] [place], [address], 09/19/2022 13:09:31 09/08/20 22 09/19/2022 LYME, LINE BLOT, CSF P41 Ab. IgG Absent Not Available [facility] (Lab Registration) [address] [place], [address], 09/19/2022 13:09:31 09/08/20 22 09/19/2022 LYME, LINE BLOT, CSF P39 Ab. IgG Absent Not Available [facility] (Lab Registration) [address] [place], [address], 09/19/2022 13:09:31 09/08/20 22 09/19/2022 LYME, LINE BLOT, CSF P30 Ab. IgG Absent Not Available [facility] (Lab Registration) [address] [place], [address], 09/19/2022 13:09:31 09/08/20 22 09/19/2022 LYME, LINE BLOT, CSF P28 Ab. IgG Absent Not Available [facility] (Lab Registration) [address] [place], [address], 09/19/2022 13:09:31 09/08/20 22 09/19/2022 LYME, LINE BLOT, CSF P23 Ab. IgG Absent Not Available [facility] (Lab Registration) [address] [place], [address], 09/19/2022 13:09:31 09/08/20 22 09/19/2022 LYME, LINE BLOT, CSF P18 Ab. IgG Absent Not Available [facility] (Lab Registration) [address] [place], [address], 09/19/2022 13:09:31 09/08/20 22 09/19/2022 LYME, LINE [...] inves tigat ional use only. Not Available [facility] (Lab Registration) [address] [place], [address], 09/19/2022 13:09:31 09/08/20 22 09/19/2022 LYME, LINE BLOT, CSF P41 Ab. IgM Absent Not Available [facility] (Lab Registration) [address], [place], [address], 09/19/2022 13:09:31 09/08/20 22 09/19/2022 LYME, LINE BLOT, CSF P39 Ab. IgM Absent Not Available [facility] (Lab Registration) [address] [place], [address], 09/19/2022 13:09:31 09/08/20 22 09/19/2022 LYME, LINE BLOT, CSF P23 Ab. IgM Absent Not Available [facility] (Lab Registration) [address] [place], [address], 09/19/2022 13:09:31 09/08/20 22 09/19/2022 LYME, LINE [...] rmed at: [facility] - [facility] [place] [address] [facility] , [place] [address] Lab Direc tor: Jaelyn maldonado MD, Phone : [phone] Not Available [facility] (Lab Registration) [address] [place], [address], 09/19/2022 13:09:31 09/08/20 22 09/08/2022 CULTU RE VIRUS CP note Unles s other peace noted testi ng [facility] [address] [place] [address] [phone] Otis pace MD CLIA: [id number] Not Available [facility] (Lab Registration) [address], [place], [address], 09/21/2022 09:09:43 09/08/20 22 09/21/2022 CULTU RE VIRUS CP culvircp No virus isolat ed. Perfo rmed at: [facility] [place] [address] [facility] [place] [address] Lab Direc tor: Jaelyn maldonado MD, Phone : [phone] Not Available [facility] (Lab Registration) [address], [place], [address], 09/21/2022 09:09:43 09/08/20 22 09/08/2022 CRYPT OCOCC US ANTIG EN, CSF note Unles s other peace noted testi ng perfo [facility]med at: [facility] [address] [place] [address] [phone] Otis pace MD CLIA: [id number] Not Available [facility] (Lab Registration) [address], [place], [address], 09/22/2022 15:13:21 09/08/20 22 09/22/2022 CRYPT OCOCC US ANTIG EN, CSF cryptococcus antigen, CSF Negati ve negati ve SENT TO REFER ENCE LAB Not Available [facility] (Lab Registration) [address], [place], [address], 09/22/2022 15:13:21 09/08/20 22 09/22/2022 CRYPT OCOCC US ANTIG EN, CSF cap mandated reflex to culture Not Indica ludin Perfo rmed at: [facility] [place] [address] , [place] [address] Lab Direc tor: Jaelyn maldonado MD, Phone : [phone] Not Available [facility] (Lab Registration) [address] [place], [address], 09/22/2022 15:13:21 09/08/20 22 09/08/2022 lumba r punct ure diagn [facility] [address] [place] [address] Phone: Fax: Name: CARLITA RAM Exam Date: 2021 : [birth year] Age 67 Gender : M Access ion: [id number] Physic earnest: SAIMA MURPHY Facili ty: [facility] Facili ty HSV: Outpat ient Exam: [...] Thank you for referr CARLITA Carver to [facility]. Legall y authen ticate d by ANTONIO SUTTON 2021-10 13:22: 26 CC'ed Logic: Orderi ng Provid er: KATHERINE COVINGTON CC Provid er: ROSELYN OBANDO Attend ing Provid er: KATHERINE SAIMA Referr ing Provid er: KATHERINE COVINGTON Admitt ing Provid er: KATHERINE SAIMA [email or web address] [facility] [place], [address], 09/09/2022 08:46:52 09/08/20 22 09/08/2022 lumba r punct ure (PROC ) No observ ation record ed. [email or web address] [facility] [place], [address], 09/08/2022 13:31:57 09/16/20 22 09/08/2022 fluor o guide needl e place ment [facility] [place] [address] Phone: Fax: Name: CARLITA RAM Exam Date: 2021 : [birth year] Age 67 Gender : M Access ion: [id number] Physic earnest: SAIMA MURPHY Facili ty: [...] Admitt ing Provid er: KATHERINE SAIMA [email or web address] [facility] (Radiology) [address] [place], [address], 09/16/2022 08:35:51 09/16/2009/08/2022 lumba r punct ure (PROC ) No observ ation record ed. [email or web address] Centralized Scheduling [address] [place], [address], 09/16/2022 08:35:27 Result Notes None recorded. Procedures Surgical History Date Name Laterality Status Provider Name and Address Organization Details Recorded Time prostatectomy completed Joycealexandria [place] - [facility] - [place] & [place] 09/09/2022 09:14:22 Cholecystectomy completed Joycealexandria Cottrell [place] - [facility] - [place] 09/09/2022 09:14:30 open stone operation on kidney or renal pelvis completed Joycealexandria [place] - [facility] - [place] & [place] 09/09/2022 09:14:41 procedure on eye completed Joycealexandria Cottrell [place] - [facility] - [place] & [place] 09/09/2022 09:15:06 Back Surgery completed Joycealexandria [place] - [facility] - [place] & [place] 09/09/2022 09:15:12 procedure on upper arm completed Joyce Simba [place] - [facility] - [place] & [place] 09/09/2022 09:15:32 procedure on lower leg completed Joycealexandria [place]ord [place] - [facility] - [place] & [place] 09/09/2022 09:15:41 Imaging Results None recorded. Procedure Notes None recorded. Medical Equipment None Reported. Allergies Allergen ID Allergen Name Allergen Category Reaction Reaction Severity Criticality Documentation Date Start Date Code Code System Note Provider Name and Address Organization Details Recorded Time 13685 Substance with sulfonami de structure and antibacte rial mechanism of action (substanc e) medicatio n Not available Not available Not available 09/09/2022 14956 8003 SNOMED Joyce Cottrell [facility], [place] - [facility] - [place] & [place] 2 09:13:10 Medications Name Sig Start Date [...] Updated DateTime 07/14/2023 180.34 cm 27.2 kg/m2 49278.51 g 98 [degF] Jennifer Daniel [facility] & [place] 07/14/2023 09:49:59 Date Recorded Body height Body mass index (BMI) Body weight Body temperature Provider Name and Address Organization Details Last Updated DateTime 07/26/2024 180.34 cm 27.2 kg/m2 42279.51 g 98 [degF] Librado Hannah [facility] & [place] 07/26/2024 08:59:03 Date Recorded Body height Body mass index (BMI) Body weight Body temperature Oxygen saturation Oxygen saturation in Arterial blood by Pulse oximetry Heart rate Systolic blood pressure Diastolic blood pressure Provider Name and Address Organization Details Last Updated DateTime 2 180.34 cm 30.5 kg/m2 94110.7 3 g 96.4 [degF] 97 % 97 % 85 /min 140 mm[Hg] 70 mm[Hg] Joyce Cottrell [facility] & [place] 09:12:45 Date Recorded Body height Body temperature Oxygen saturation Oxygen saturation in Arterial blood by Pulse oximetry Heart rate Systolic blood pressure Diastolic blood pressure Provider Name and Address Organization Details Last Updated DateTime 2 180.34 cm 96 [degF] 98 % 98 % 92 /min 132 mm[Hg] 78 mm[Hg] Saima Murphy MD [address] [place] [address], [phone] [place] [address] & [place] 2 08:42:14 Social History None recorded. Functional [...] SNOMED-CT Code Diagnosis ICD10 Code Diagnosis Note [id number] Saima Murphy MD [facility] [address] [place] [phone] 09/09/2022 09:00:27 09/09/2022 10:35:21 Normal pressure hydrocephalus 89904945 G91.2 improvemen t noted after high-volum e spinal tap yesterday, distinct improvemen t in gait and balance as well as overall brightness . Patient himself feels better, I will follow-up with him over the next 2 weeks. In the meantime will send informatio n to Dr. Dionna Koenig at [facility] for further evaluation have also sent spinal fluid for further testing and awaiting results. [id number] Saima Murphy MD [facility] [address] [place] [address] [place] [address] 10/07/2022 08:27:24 10/07/2022 13:13:34 Normal pressure hydrocephalus 06475607 G91.2 Distinct drop-off of gait mobility noted on today's examinatio n, interestin gly he seemed to have a 2 week window of improvemen t with gradual drop-off since mostly noted on gait stability and balance but also on some degree of mental brightness . I have recommende d follow-up with Dr.Kara Koenig [facility] and will be sending these records to her. [id number] Carlito Gould Jr, MD [facility] [address] [phone] 07/14/2023 09:27:48 07/14/2023 10:28:15 Lower urinary tract symptoms due to benign prostatic hypertrophy [id number] 9101 N40.1 patient with history of BPH. He underwent a green light laser TURP [place] [address] Lee. He continues to void well. Continues on tamsulosin and finasterid e as well. We discussed that typically folks can get off of the medication s after TURP. Screening for malignant neoplasm of prostate [id number] Z12.5 patient's recent PSA was 2.0 in March 2023. Corrected for the finasterid e and this would be 4.0 in his within normal limits for his age. [id number] Carlito Gould Jr, MD [facility] [address] [address] 07/26/2024 08:53:34 07/26/2024 09:47:09 Lower urinary tract symptoms due to benign prostatic hypertrophy 0501018428 9101 N40.1 patient with history of BPH. He underwent a green light laser TURP [place] [address] Lee. He continues to void well. Continues on tamsulosin and finasterid e as well. We discussed that typically folks can get off of the medication s after TURP. Screening for malignant neoplasm of prostate 767553600 Z12.5 patient's recent PSA was 2.0 in [...] [place] Member ID Guarantor Name 08/17/2024 1 [place]UCY BCBS [facility] [id number] Carlita Bearden [id number] Carlita Bearden 07/26/2024 2 [place] Carlita Bearden [id number] Carlita Bearden Notes Date Note Type [...] and activities. Patient works in the local [employer] department and was complaining of increasing difficulty [...] acute weakness and headache was seen at [facility] where another MRI scan was performed, [...] complaints at this time. Saima Murphy MD [address] [place] [address], [phone], [facility] - [facility] - [facility] 09/09/2022 10:32:33 10/07/2022 text/html Patient follows [...] great of an issue. Saima Murphy MD [address] [place] [address], [phone], [facility] - [facility] & [place] 10/07/2022 09:13:08 07/14/2023 text/html patient is a 68-year-old white male who I previously saw in [place]. He transferred care to [facility] today. He has a history [...] PSA was 2.March. Carlito Gould Jr, MD [address] [place] [address], [address], [place], [address], [place] - [facility] & [place] 07/14/2023 15:54:55 07/26/2024 text/html Patient is a [...] be 4.0. Carlito Gould Jr, MD [address] [place] [address] Drive, [address], [place], [address], [place] - [facility] & [place] 08/16/2024 10:12:01
--- OUTSIDE RECORDS SUMMARY | 2025-03-26 07:34 | XMS_ITS | Data Portability ---
Author Organization [facility] Address [address] [place] [address] Care Team Providers Care Battery Service Technician Name Role Phone TOPHER DEMPSEY Primary Care Provider Assessment Encounter Date Assessment Date Assessment LastModified by Organization Details LastModified Time 02/07/2024 02/07/2024 Patient presents with symptoms of UTI. Results of dipstick were positive for UTI. Advised to drink clear fluids, Tylenol for pain and take prescribed medications as instructed. Patient encouraged to follow up within 1 week if not improving. Not available 02/07/2024 10:09:39 Plan of Treatment Reminders Order Date Submit Date Provider Last Modified By Organization Details Last Modified Time Details Appointments None recorded. Lab urinalysis, dipstick 2023 024 [email or web address] 5 [facility], [address] [place], [address], 4 10:11:37 urinalysis, dipstick 2022 023 [email or web address] 5 [facility], [address] [place], [address], 3 09:07:18 Referral None recorded. Procedures None recorded. Surgeries None recorded. Imaging None recorded. Medication Orders ciprofloxac in 500 mg tablet 2023 024 [id number], [address] [place], [address], 4 10:11:38 nystatin 100,000 unit/mL oral suspension 2023 024 [id number], [address] [place], [address], 13:17:59 Zithromax Z-Reji 250 mg tablet 2023 024 [facility], [address] [place], [address], 09:34:12 Augmentin 875 mg-125 mg tablet 2023 024 [facility], [address] [place], [address], 10:30:18 Patient TargetsNo targets recorded. Patient Instructions Encounter Date Encounter Id Patient Instructions Last Modified By Organization Details Last Modified Time 07/01/2023 [id number] nutrition [email or web address] Not available 06/18 10:29:48 exercise [email or web address] Not available 07/01 10:29:48 10/19/2023 [id number] eating healthy foods: care instructions [email or web address] Not available 10/19/2023 10:20:51 exercise [email or web address] Not available 10/19 10:20:51 11/22/2023 [id number] eating healthy foods: care instructions [email or web address] Not available 11/23/2023 18:27:37 exercise [email or web address] Not available 11/23 18:27:37 02/07/2024 [id number] eating healthy foods: care instructions Not available 02/07/2024 10:11:35 walking for exercise: care instructions [email or web address] Not available 02/07/2024 10:11:35 Reason for Referral None Reported. Results Created Date Observation Date Name Description Value Unit Range Abnormal Flag Note LastModifiedBy Organization Detail LastModifiedTime 01/13/20 23 01/12/2023 urina lysis , dipst ick Leukocytes Negati ve Not Available [facility] [address] [place], [address], 01/12/2023 09:52:20 01/13/20 23 01/12/2023 urina lysis , dipst ick Nitrite negati ve Not Available [facility] [address] [place] [address], [address], 01/12/2023 09:52:20 01/13/20 23 01/12/2023 urina lysis , dipst ick Urobilinogen .2 Not Available [facility] [address] [place] [address], [address], 01/12/2023 09:52:20 01/13/20 23 01/12/2023 urina lysis , dipst ick Protein Negati ve Not Available [facility] [address] [place] [address], [address], 01/12/2023 09:52:20 01/13/20 23 01/12/2023 urina lysis , dipst ick pH 6.0 Not Available [facility] [address] [place] [address], [address], 01/12/2023 09:52:20 01/13/20 23 01/12/2023 urina lysis , dipst ick Blood Negati ve Not Available [facility] [address] [place] [address], [address], 01/12/2023 09:52:20 01/13/20 23 01/12/2023 urina lysis , dipst ick Specific Dillon 1.030 Not Available [facility] [address] [place] [address], [address], 01/12/2023 09:52:20 01/13/20 23 01/12/2023 urina lysis , dipst ick Ketone Negati ve Not Available [facility] [address] [place] [address], [address], 01/12/2023 09:52:20 01/13/20 23 01/12/2023 urina lysis , dipst ick Bilirubin Negati ve Not Available [facility] [address] [place], [address], 01/12/2023 09:52:20 01/13/20 23 01/12/2023 urina lysis , dipst ick Glucose Negati ve Not Available [facility] [address] [place], [address], 01/12/2023 09:52:20 01/13/20 23 01/12/2023 urina lysis , dipst ick Appearance Clear Not Available [facility] [address] [place] [address], [address], 01/12/2023 09:52:20 01/13/20 23 01/12/2023 urina lysis , dipst ick Color Dark Yellow Not Available [facility] [address] [place], [address], 01/12/2023 09:52:20 02/07/20 24 02/07/2024 urina lysis , dipst ick Leukocytes Modera te Not Available [facility] [address] [facility], [place], [address], 02/07/2024 09:34:29 02/07/20 24 02/07/2024 urina lysis , dipst ick Nitrite negati ve Not Available [facility] [address] [facility], [place], [address], 02/07/2024 09:34:29 02/07/20 24 02/07/2024 urina lysis , dipst ick Urobilinogen .2 Not Available [facility] [address] [facility], [place], [address], 02/07/2024 09:34:29 02/07/20 24 02/07/2024 urina lysis , dipst ick Protein Negati ve Not Available [facility] [address] [facility], [place], [address], 02/07/2024 09:34:29 02/07/20 24 02/07/2024 urina lysis , dipst ick pH 5.0 Not Available [facility] [address] [facility], [place], [address], 02/07/2024 09:34:29 02/07/20 24 02/07/2024 urina lysis , dipst ick Blood Small Not Available [facility] [address] [facility], [place], [address], 02/07/2024 09:34:29 02/07/20 24 02/07/2024 urina lysis , dipst ick Specific Dillon 1.030 Not Available [facility] [address] [facility], [place], [address], 02/07/2024 09:34:29 02/07/20 24 02/07/2024 urina lysis , dipst ick Ketone Negati ve Not Available [facility] [address] [facility], [place], [address], 02/07/2024 09:34:29 02/07/20 24 02/07/2024 urina lysis , dipst ick Bilirubin Negati ve Not Available [facility] [address] [facility], [place], [address], 02/07/2024 09:34:29 02/07/20 24 02/07/2024 urina lysis , dipst ick Glucose Negati ve Not Available [facility] [address] [facility], [place], [address], 02/07/2024 09:34:29 02/07/20 24 02/07/2024 urina lysis , dipst ick Appearance Cloudy Not Available [facility] [address] [facility], [place], [address], 02/07/2024 09:34:29 02/07/20 24 02/07/2024 urina lysis , dipst ick Color Dark Yellow Not Available [facility] [address] [facility], [place], [address], 02/07/2024 09:34:29 Result Notes None recorded. 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 Procedures Surgical History Date Name Laterality Status Provider Name and Address Organization Details Recorded Time Eye Surgery completed [facility]. 07/22/2022 10:43:47 Unlisted px femur/knee completed [facility]. 07/22/2022 10:43:57 Imaging Results None recorded. Procedure Notes None recorded. Medical Equipment None Reported. Allergies Allergen ID Allergen Name Allergen Category Reaction Reaction Severity Criticality Documentation Date Start Date Code Code System Note Provider Name and Address Organization Details Recorded Time 08714 sulfur medicatio n Not available Not available Not available 06/23/2022 76406 RxNorm Yarely bourne [employer] 3 08:31:41 Medications Name Sig Start Date Stop Date Status Note LastModified by Organization Details LastModified Time Augmentin 875 mg-125 mg tablet Take 1 tablet every 12 hours by oral route for 10 days. 01/12 completed Not Available Not Available Not Available albuterol sulfate 0.63 mg/3 mL solution for nebulizatio n PRN 01/12 completed Not Available Not Available Not Available nystatin 100,000 unit/mL oral suspension Take 5 mL 4 times a day by oral route for 10 days, for thrush. 2023 active Not Available Not Available Not Avai lable prednisone 10 mg tablet take 50mg by oral route once daily day 1 then decrease by 10mg po qd 08/07 completed Not Available Not Available Not Available cefuroxime axetil 250 mg tablet take 1 tablet (250 mg) by oral route 2 times per day x 1 week 12/23 completed Not Available Not Available Not Available trazodone 50 mg tablet take 1 tablet (50 mg) by oral route 3 times per day 2021 active Not Available Not Available Not Avai lable azithromyci n 250 mg tablet take 2 tablet by oral route once daily day 1 then 1 po qd days 2-5 07/22 completed Not Available Not Available Not Available diltiazem CD 240 mg capsule,ext ended release 24 hr take 1 capsule (240 mg) by oral route once daily 2021 active Not Available Not Available Not Avai lable ciprofloxac in 500 mg tablet Take 1 tablet every 12 hours by oral route for 10 days. 2023 active Not Available Not Available Not Avai lable tamsulosin 0.4 mg capsule take 1 capsule (0.4 mg) by oral route once daily 1/2 hour following the same meal each day 2021 active Not Available Not Available Not Avai lable gabapentin 300 mg capsule take 1 capsule (300 mg) by oral route 3 times per day 2021 active Not Available Not Available Not Avai lable codeine 10 mg-guaifene sin 100 mg/5 mL oral liquid take 10 millilite rs by oral route every 4 hours as needed 08/07 completed Not Available Not Available Not Available zinc 50 mg tablet 2021 active Not Available Not Available Not Avai lable sertraline 50 mg tablet take 1 tablet (50 mg) by oral route once daily 2021 active Not Available Not Available Not Avai lable finasteride 5 mg tablet take 1 tablet (5 mg) by oral route once daily 2021 active Not Available Not Available Not Avai lable valsartan 160 mg tablet take 1 tablet (160 mg) by oral route 2 times per day 2021 active Not Available Not Available Not Avai lable rosuvastati n 10 mg tablet take 1 tablet (10 mg) by oral route once daily 2021 active Not Available Not Available Not Avai lable aspirin 2021 active Not Available Not Available Not Avai lable Keena 2021 active Not Available Not Available Not Avai lable nitrofurant oin 50 mg cap 08/07 completed Not Available Not Available Not Available Centrum 2021 active Not Available Not Available Not Avai lable cholecalcif hortensia (vitamin D3) 50 mcg (2,000 unit) tablet 2021 active Not Available Not Available Not Avai lable levothyroxi ne 100 mcg capsule take 1 capsule (100 mcg) by oral route once daily 2021 active Not Available Not Available Not Avai lable fluticasone furoate 200 mcg-vilante rol 25 mcg/dose inhalation powder inhale 1 puff by inhalatio n route once daily at the same time each day 01/12 completed Not Available Not Available Not Available Vitals Date Recorded Body height Body mass index (BMI) Body weight Body temperature Heart rate Oxygen saturation Oxygen saturation in Arterial blood by Pulse oximetry Systolic blood pressure Diastolic blood pressure Provider Name and Address Organization Details Last Updated DateTime 4 179.07 cm 28 kg/m2 21936.2 9 g 97.9 [degF] 78 /min 98 % 98 % 112 mm[Hg] 68 mm[Hg] Lauren Escobar [facility] [employer] 4 09:10:24 Date Recorded Body height Body mass index (BMI) Body weight Body temperature Heart rate Oxygen saturation Oxygen saturation in Arterial blood by Pulse oximetry Provider Name and Address Organization Details Last Updated DateTime 4 179.07 cm 27.4 kg/m2 62407.9 2 g 97.6 [degF] 69 /min 97 % 97 % Lauren [employer] 4 10:30:01 Date Recorded Body height Body mass index (BMI) Body weight Body temperature Heart rate Oxygen saturation Oxygen saturation in Arterial blood by Pulse oximetry Systolic blood pressure Diastolic blood pressure Provider Name and Address Organization Details Last Updated DateTime 3 179.07 cm 27.9 kg/m2 41214.7 g 97.6 [degF] 80 /min 98 % 98 % 136 mm[Hg] 86 mm[Hg] [facility]. 3 09:50:07 Date Recorded Body height Body mass index (BMI) Body weight Body temperature Heart rate Oxygen saturation Oxygen saturation in Arterial blood by Pulse oximetry Provider Name and Address Organization Details Last Updated DateTime 4 179.07 cm 27.7 kg/m2 29085.1 g 97.5 [degF] 84 /min 97 % 97 % Lauren [employer] 4 09:33:51 Date Recorded Body height Body mass index (BMI) Body weight Body temperature Heart rate Oxygen saturation Oxygen saturation in Arterial blood by Pulse oximetry Systolic blood pressure Diastolic blood pressure Provider Name and Address Organization Details Last Updated DateTime 3 179.07 cm 27.9 kg/m2 21276.7 g 97.9 [degF] 77 /min 97.6 % 97.6 % 132 mm[Hg] 82 mm[Hg] [facility]. 3 09:44:10 Social History Question Answer Notes LastModified by Organizat ion Details LastModified Time Tobacco Smoking Status Never Smoker Yarely bourne [employer] 11/23/2022 08:30:47 Do You Have An Advance Directive? No Information not available 08/07/2022 Is Your Home Air Conditioned? Yes Information not available 08/07/2022 Are You Blind Or Do You Have Difficulty Seeing? Yes Wears Glasses Information not available 08/07/2022 What Is Your Level Of Caffeine Consumption? Occasional Information not available 01/12/2023 Are You A Caregiver? No Information not available 08/07/2022 What Type Of Welder Boilermaker Do You Use? None Information not available 08/07/2022 In The 14 Days Before Symptom Onset, Have You Had Close Contact With A Laboratory-conf irmed COVID-19 While That Case Was Ill? No Information not available 08/07/2022 In The 14 Days Before Symptom Onset, Have You Had Close Contact With A Person Who Is Under Investigation For COVID-19 While That Person Was Ill? No Information not available 08/07/2022 Have You Been To An Area Known To Be High Risk For COVID-19? No Information not available 08/07/2022 Are You Deaf Or Do You Have Serious Difficulty Hearing? No Information not available 07/22/2022 What Type Of Diet Are You Following? REGULAR Information not available 07/22/2022 Who Is Your Employer? [employer] Information not available 07/22/2022 Have There Been Any Changes To Your Family Or Social Situation? No Information not available 08/07/2022 Are There Any Guns Present In Your Home? No Information not available 08/07/2022 Which Of Your Hands Is Dominant? Right Information not available 08/07/2022 How Many Times In The Past Year Have You Used An Illegal Drug Or Used A Prescription Medication For Nonmedical Reasons? 0 Information not available 07/01/2023 Where Do You Live? SingleLevelHouse Information not available 08/07/2022 Do You Have A Medical Power Of Educational Interpreter? No Information not available 08/07/2022 What Was The Date Of Your Most Recent Tobacco Screening? 01/12/2023 Information not available 01/12/2023 Do You Have Any Pets? Yes Information not available 08/07/2022 What Is Your Relationship Status? Information not available 08/07/2022 Do You Use Your Seat Belt Or Car Seat Routinely? Yes Information not available 07/22/2022 Do You Have Smoke And Carbon Monoxide Detectors In Your Home? No Information not available 07/22/2022 Are You Passively Exposed To Smoke? No Information not available 07/22/2022 Are There Any Smokers In Your House? No Information not available 08/07/2022 Do You Participate In Social Media? Yes Information not available 08/07/2022 Do You Use Sunscreen Routinely? No Information not available 08/07/2022 Has Tobacco Cessation Counseling Been Provided? No Information not available 08/07/2022 Have You Recently Traveled Abroad? No Information not available 08/07/2022 Do You Have Difficulty Walking Or Climbing Stairs? No Information not available 07/22/2022 Are You Currently In School? No Information not available 07/22/2022 What Contraceptive Method Was Reported At Start Of This Visit? None Information not available 08/07/2022 Do You Have Any Dietary Restrictions? No Information not available 07/22/2022 Sex: Male Functional Status Question Answer Note LastModified by We ion Details LastModified Time Do you use any illicit or recreational drugs? No Information not available 08/07/2022 Do you or have you ever used any other forms of tobacco or nicotine? No Information not available 08/07/2022 What is your level of alcohol consumption? None Information not available 07/22/2022 Are you currently employed? Yes Information not available 07/22/2022 Do you have transportation difficulties? No Information not available 07/22/2022 Are you able to walk? [employer] Information not available 07/22/2022 Do you have difficulty doing errands alone? No Information not available 07/22/2022 Are you able to care for yourself? Yes Information not available 07/22/2022 Do you have difficulty dressing or bathing? No Information not available 07/22/2022 What is your exercise level? Occasional Information not available 07/22/2022 Mental Status Question Answer Note LastModified by Organizat ion Details LastModified Time Do you feel stressed (tense, restless, nervous, or anxious, or unable to sleep at night)? [id number] [facility] Information not available 07/22/2022 Do you have difficulty concentrating, remembering or making decisions? No Information n ot available 07/22/2022 Family History Relationship Description Onset Age of this Age Resolved Age Notes LastModified by Organization Details LastModified Time Unspecified Relation Family history of malignant neoplasm [email or web address] Not available 2022 08:30:29 Unspecified Relation Family history of diabetes mellitus type 2 [email or web address] Not available 2022 08:30:34 Medical History Condition Response Allergies (Food, seasonal, environmental ) Y Allergies/Hayfever Y Asthma Y Hypertension Y Immunizations Vaccine Type Date Status Note Provider Nam e and Address Organization Details Recorded Time pneumococcal polysaccharide PPV23 8 completed Yarely Rivera [employer] 09/16/2022 09:17:05 Influenza, high-dose, quadrivalent, PF 0 completed Yarely Rivera null, [employer]. 09/16/2022 09:17:05 COVID-19, mRNA, LNP-S, PF, 30 mcg/0.3 mL dose 1 completed Yarely Rviera [employer], [employer], [employer] 09/16/2022 09:17:05 Hep A, adult 9 completed Yarely Nicole null, [employer]. 09/16/2022 09:17:05 Influenza, high-dose, trivalent, PF 9 completed Yarely Rivera null, [employer]. 09/16/2022 09:17:05 Hep A, adult 8 completed Yarely Nicole null, [employer], [employer] 09/16/2022 09:17:05 zoster recombinant 8 completed Yarely Nicole null, [employer]. 09/16/2022 09:17:05 Influenza, high-dose, quadrivalent, PF 2 completed Yarelyzachary bourne, [employer] 09/16/2022 09:17:05 Pneumococcal conjugate PCV 13 7 completed Yarely Nicole bourne, [employer] 09/16/2022 09:17:05 COVID-19, mRNA, LNP-S, PF, 30 mcg/0.3 mL dose 1 completed Yarelyzachary bourne, [employer] 09/16/2022 09:17:05 COVID-19, mRNA, LNP-S, PF, 30 mcg/0.3 mL dose 1 completed Yarelyteresita bourne, [employer] 09/16/2022 09:17:05 Past Encounters Encounter ID Performer Location Encounter Start Date Encounter Closed Date Diagnosis/Indication Diagnosis SNOMED-CT Code Diagnosis ICD10 Code Diagnosis Note [id number] Nancy Anderson PA-C [employer] [place] [phone] 3 07/22/2022 10:24:49 07/23/2022 09:13:53 Viral upper respiratory tract infection 359587335 J06.9 Continue current allergy medication s. Reassured patient lungs are clear. F/u if new or worsening symptoms. Body mass index 25-29 - overweight 392562648 Z68.29 healthy diet and regular aerobic exercise program Tobacco non-user [id number] 001 91544 Z13.89 [id number] Nancy Anderson PA-C [employer] [place] [id number] 08/07/2022 11:01:10 08/13/2022 10:16:28 Acute otitis media 0311097 H65.01 Start zithromax. Nasal saline rinses, humidifier and continue current medication s. Body mass index 25-29 - overweight 664082022 Z68.29 healthy diet and regular aerobic exercise program Tobacco non-user [id number] 001 10992 Z13.89 [id number] Nancy Anderson PA-C [employer] [place] [id number] 8 08/14/2022 09:15:29 08/20/2022 12:00:16 Acute maxillary sinusitis 22736828 J01.00 Increase fluids, Tylenol for fever or pain, and humidifier , continue Flonase nasal spray [id number] Nancy Anderson PA-C [facility] [address] [place] [address] 09/01/2022 10:05:25 09/02/2022 07:35:25 Viral gastroenteritis 667641236 A08.4 soft bland diet for next 2-3 days, keep hydrated, rest, and Tylenol for fever or pain. F/u in3 days if not improved. [id number] Nanyc Anderson PA-C [place] [id number] 3 09/16/2022 09:09:43 09/16/2022 11:58:06 Nausea and vomiting 00391872 R11.2 clear liquids for next 24 hours followed by BRAT diet advancing as tolerated. If symptoms fail to improve or worsen needs to f/u with PCP for evaluation . Tobacco non-user [id number] 001 09209 Z13.89 Body mass index 25-29 - overweight 574007948 Z68.29 healthy diet and regular aerobic exercise program [id number] Nancy Anderson PA-C [facility] [address] [place] [address] 11/20/2022 09:36:26 11/23/2022 11:40:31 Acute maxillary sinusitis 17532130 J01.00 Increase fluids, Tylenol for fever or pain, and humidifier , continue Flonase nasal spray and antihistam ine. F/u in 5-7 days if not improved. 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 Body mass index 25-29 - overweight 948823745 Z68.29 healthy diet and regular aerobic exercise program Tobacco non-user [id number] 001 88760 Z13.89 [id number] Nancy Anderson PA-C [facility] [facility] [address] [place] [address] 07/01/2023 09:40:52 07/01/2023 10:53:44 Viral upper respiratory tract infection 341836799 J06.9 Continue current allergy medication s and may try Clorecedin for congestion . Reassured patient lungs are clear. F/u in 3-5 days if fever or bodyaches occur new or worsening symptoms. Body mass index 25-29 - overweight 366187810 Z68.29 healthy diet and regular aerobic exercise program Tobacco non-user [id number] 001 63341 Z13.89 [id number] Nancy Anderson PA-C [facility] [address] [place] [address] 10/19/2023 09:03:43 10/19/2023 12:25:30 Acute upper respiratory infection 78735179 J06.9 Rx for Augmentin 875mg as prescribed . Continue Chlorecide n for congestion . Humidifier . F/u in 5-7 days if not improved. Body mass index 25-29 - overweight 940051700 Z68.29 healthy diet and regular aerobic exercise program Tobacco non-user [id number] 001 03677 Z13.89 [id number] Nancy Anderson PA-C [facility] [address] [place] [address] 11/22/2023 10:29:02 11/25/2023 12:04:41 Acute maxillary sinusitis 98546457 J01.00 Antibiotic s as prescribed . Increase fluids, Tylenol for fever or pain, and humidifier , continue Flonase nasal spray and antihistam ine F/u in 5-7 days if not improved. Candidiasis of mouth 797 57905 B37.0 Explained nature of illness to patient. Recommend removing dentures nightly. F/u in 2 weeks if symptoms persist or worsen Body mass index 25-29 - overweight 826305344 Z68.29 healthy diet and regular aerobic exercise program Tobacco non-user [id number] 001 60904 Z13.89 [id number] Nancy Anderson PA-C [facility] [address] [address] 02/07/2024 09:32:47 02/10/2024 15:03:50 Acute urinary tract infection [id number] N39.0 Cipro as prescribed . Tylenol for pain or fever. Increase fluids avoiding soda. F/u in7-10 days for recheck, sooner if needed. Body mass index 25-29 - overweight [id number] Z68.29 healthy diet and regular aerobic exercise program Tobacco non-user [id number] Z13.89 Health Concerns Section Related Observation LastModified by Organization Detai ls LastModified Time None Recorded Concern Status LastModified by Organization Details LastModified Time None Recorded Advance Directives Directive N: Payers Insurance Date Sequence Insurance Name Policy Number Policy [place] Covered Member ID [place] Member ID Guarantor Name 02/23/2024 1 [place] [id number] Toan T Suleiman II [id number] Toan T Suleiman 02/07/2024 [place] [employer] [facility] Toan T Suleiman [id number] Toan T Suleiman 02/07/2024 2 [place] Toan T Suleiman [id number] Toan T Suleiman Notes Date Note Type Note Provider Name and Address Organization Details Recorded Time 01/12/2023 text/html 67 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 Reviewed PMH, medications, and surgeries with patient. Most recently had shunt placed for hydrocephalus one month ago which has returned to normal activity including driving. Denies MVA or traffic violations since last exam 1 year ago. Nancy Anderson PA-C [address] [place], [phone], [facility] [employer] 01/13/2023 13:16:35 07/01/2023 text/html Sinusitis/Allerg yRe ported bypatient.Location: maxillary Quality:congested Severity:mild Onset/Timing:gradua l onset; initially started 3days ago; progressively worse over last 1days Context:no recent upper respiratory infection;recent sick contacts; son-in-law has COVID Alleviating factors:nasal steroid Flonase; antihistamine fexofenadine Aggravating factors:allergies are active Associated Symptoms:no fever; no nausea or vomiting; no headache; no sore throat;cough Risk Factors:no current smoking or tobacco use Nancy Anderson PA-C [address] [place] [address], [phone], [employer] 07/01/2023 10:30:23 10/19/2023 text/html Sinusitis/Allerg yRe ported bypatient.Location: maxillary Quality:congested;c olored phlegm Severity:mild Onset/Timing:gradua l onset; initially started 6days ago; progressively worse over last 2days Context:no recent upper respiratory infection Alleviating factors:taking Amoxicillin 500mg twice a day for past 5 days Aggravating factors:cold weather Associated Symptoms:no fever; no cough; no nausea or vomiting; no headache; no sore throat;sinus pain forehead Risk Factors:history of smoking Nancy Anderson PA-C [address] [place] [address], [phone], [employer] 10/19/2023 10:21:38 11/22/2023 text/html Sinusitis/Allerg yRe ported bypatient.Location: maxillary Quality:congested;c olored phlegm Severity:mild Onset/Timing:gradua l onset; initially started 1weeks ago; progressively worse over last 1days Context:no recent upper respiratory infection;recent sick contacts Alleviating factors:nasal steroid Flonase; antihistamine loratadine Aggravating factors:cold weather Associated Symptoms:no fever; no cough; no nausea or vomiting; no sore throat;nasal discharge from both nostrils;sinus pain forehead;thick phlegm in throat Risk Factors:no current smoking or tobacco use Nancy Anderson PA-C [address] [place] [address], [phone], [employer] 11/23/2023 18:28:12 02/07/2024 text/html Lower Urinary Tr act Symptoms (LUTS)Reported bypatient.Location: bladder Quality:pressure; loss of function Severity:worsening; mild Onset/Timing:sponta neous Duration:acute Context:denies excessive fluid intake; denies excessive caffeine intake; increased frequency, burning without hematuria or flank pain Associated Symptoms:no abdominal pain; no flank pain; no low back pain; no chills; no fever; no constipation; no diarrhea; no nausea; no vomiting;urgency;fr equency;dysuria Nancy Anderson PA-C [address] [place] [address], [phone], [facility] [employer] 02/07/2024 10:12:10
--- OUTSIDE RECORDS SUMMARY | 2025-03-26 07:34 | XMS_ITS ---
Author Organization Unknown Medications Medication Instructions Effective Dates (start - stop) Status chlorhexidine gluconate 1.2 MG/ML Mouthwash 5068-63-87S11:00:00.000+00:0 0 - Completed levothyroxine sodium 0.112 M G Oral Tablet 8234-94-81W20:00:00.000+00:0 0 - Completed doxycycline hyclate 100 MG O ral Capsule 7247-72-62I74:00:00.000+00:0 0 - Completed levothyroxine sodium 0.112 M G Oral Tablet 6816-56-36E38:00:00.000+00:0 0 - Completed cephalexin 500 MG Oral Capsule 168-73-84O41:00:00.000+00:0 0 - Completed levothyroxine sodium 0.112 M G Oral Tablet 3838-86-25T88:00:00.000+00:0 0 - Completed levothyroxine sodium 0.112 M G Oral Tablet 8081-11-67L72:00:00.000+00:0 0 - Completed ondansetron 8 MG Oral Tablet 11-28-29:00:00.000+00:0 0 - Completed cefdinir 300 MG Oral Capsule 11-27-27:00:00.000+00:0 0 - Completed valsartan 160 MG Oral Tablet 12-17-05:00:00.000+00:0 0 - Completed amoxicillin 500 MG Oral Capsule 0494-11-94Q68:00:00.000+00:0 0 - Completed finasteride 5 MG Oral Tablet 12-19-04:00:00.000+00:0 0 - Completed gabapentin 300 MG Oral Capsule 2 056-33-52F04:00:00.000+00:0 0 - Completed gabapentin 300 MG Oral Capsule 400-61-80M13:00:00.000+00:0 0 - Completed mupirocin 0.02 MG/MG Topical Ointment 1641-82-69K06:00:00.000+00:0 0 - Completed gabapentin 300 MG Oral Capsule 654-62-07B29:00:00.000+00:0 0 - Completed finasteride 5 MG Oral [...] rosuvastatin calcium 10 MG O ral Tablet 8650-92-67V56:00:00.000+00:0 0 - Completed sertraline 50 MG Oral Tablet 11-28-07:00:00.000+00:0 0 - Completed rosuvastatin calcium 10 MG O ral Tablet 4850-60-46M97:00:00.000+00:0 0 - Completed rosuvastatin calcium 10 MG O ral Tablet 8052-16-47Z73:00:00.000+00:0 0 - Completed montelukast 10 MG Oral Tablet 09-07-26:00:00.000+00:0 0 - Completed gabapentin 300 MG Oral Capsule 124-11-38D78:00:00.000+00:0 0 - Completed gabapentin 300 MG Oral Capsule 917-44-74G82:00:00.000+00:0 0 - Completed cephalexin 500 MG Oral Capsule 009-53-86A01:00:00.000+00:0 0 - Completed montelukast 10 MG Oral Tablet 08-06-06:00:00.000+00:0 0 - Completed rosuvastatin calcium 10 MG O ral Tablet 5287-47-22K84:00:00.000+00:0 0 - Completed azithromycin 500 MG Oral Tablet 7921-29-38R04:00:00.000+00:0 0 - Completed ondansetron 4 MG Disintegrat ing Oral Tablet 5575-92-69C88:00:00.000+00:0 0 - Completed tamsulosin hydrochloride 0.4 MG Oral Capsule 9979-35-97Q01:00:00.000+00:0 0 - Completed nitrofurantoin, macrocrystal s 50 MG Oral Capsule 2223-49-80Q69:00:00.000+00:0 0 - Completed valsartan 160 MG Oral Tablet 11-28-07:00:00.000+00:0 0 - Completed trazodone hydrochloride 50 M G Oral Tablet 4499-42-75Y39:00:00.000+00:0 0 - Completed nitrofurantoin, macrocrystal s 50 MG Oral Capsule 9838-22-14O90:00:00.000+00:0 0 - Completed tamsulosin hydrochloride 0.4 MG Oral Capsule 0762-47-46B70:00:00.000+00:0 0 - Completed nitrofurantoin, macrocrystal s 50 MG Oral Capsule 2437-64-20H75:00:00.000+00:0 0 - Completed sertraline 50 MG Oral Tablet 11-25-07:00:00.000+00:0 0 - Completed 24 HR diltiazem hydrochlorid e 240 MG Extended Release Oral Capsule 3386-11-18H06:00:00.0 00+00:0 0 - Completed 24 HR diltiazem hydrochlorid e 240 MG Extended Release Oral Capsule 5831-69-44M07:00:00.0 00+00:0 0 - Completed tamsulosin hydrochloride 0.4 MG Oral Capsule 4110-56-92U12:00:00.000+00:0 0 - Completed 24 HR diltiazem hydrochlorid e 240 MG Extended Release Oral Capsule 9401-34-39E71:00:00.0 00+00:0 0 - Completed trazodone hydrochloride 50 M G Oral Tablet 7066-33-28X67:00:00.000+00:0 0 - Completed 24 HR diltiazem hydrochlorid e 240 MG Extended Release Oral Capsule 3247-82-39Q39:00:00.0 00+00:0 0 - Completed tamsulosin hydrochloride 0.4 MG Oral Capsule 4313-43-03S45:00:00.000+00:0 0 - Completed valsartan 160 MG Oral Tablet 12-20-04:00:00.000+00:0 0 - Completed levofloxacin 500 MG Oral Tablet 1974-22-31K33:00:00.000+00:0 0 - Completed nitrofurantoin, macrocrystal s 50 MG Oral Capsule 6808-69-34D62:00:00.000+00:0 0 - Completed trazodone hydrochloride 50 M G Oral Tablet 1996-24-60S18:00:00.000+00:0 0 - Completed valsartan 160 MG Oral Tablet 11-25-07:00:00.000+00:0 0 - Completed 60 ACTUAT fluticasone propio madina 0.5 MG/ACTUAT / salmeterol 0.05 MG/ACTUAT Dry Powder Inhaler [Advair] 8934-43-01K78:00:00.000+00:0 0 - Completed 30 ACTUAT fluticasone furoat e 0.2 MG/ACTUAT / vilanterol 0.025 MG/ACTUAT Dry Powder Inhaler [Breo] 2376-48-67O84:00:00.000+00:0 0 - Completed 30 ACTUAT fluticasone furoat e 0.2 MG/ACTUAT / vilanterol 0.025 MG/ACTUAT Dry Powder Inhaler [Breo] 0852-19-07P59:00:00.000+00:0 0 - Completed acetaminophen 325 MG / hydro codone bitartrate 5 MG Oral Tablet 3512-42-59U09:00:00.000+00 :0 0 - Completed 30 ACTUAT fluticasone furoat e 0.2 MG/ACTUAT / vilanterol 0.025 MG/ACTUAT Dry Powder Inhaler [Breo] 9766-68-17W24:00:00.000+00:0 0 - Completed 60 ACTUAT fluticasone propio madina 0.5 MG/ACTUAT / salmeterol 0.05 MG/ACTUAT Dry Powder Inhaler [Advair] 5506-43-95Y85:00:00.000+00:0 0 - Completed 60 ACTUAT fluticasone propio madina 0.5 MG/ACTUAT / salmeterol 0.05 MG/ACTUAT Dry Powder Inhaler [Advair] 8264-37-42X84:00:00.000+00:0 0 - Completed 30 ACTUAT fluticasone furoat e 0.2 MG/ACTUAT / vilanterol 0.025 MG/ACTUAT Dry Powder Inhaler [Breo] 1744-10-96S79:00:00.000+00:0 0 - Completed amoxicillin 875 MG / clavula madina 125 MG Oral Tablet 4141-14-65S79:00:00.000+00:0 0 - Completed 60 ACTUAT fluticasone propio madina 0.5 MG/ACTUAT / salmeterol 0.05 MG/ACTUAT Dry Powder Inhaler [Advair] [id number]:00:00.000+00:0 0 - Completed 30 ACTUAT fluticasone furoat e 0.2 MG/ACTUAT / vilanterol 0.025 MG/ACTUAT Dry Powder Inhaler [Breo] 0580-14-34P42:00:00.000+00:0 0 - Completed 60 ACTUAT fluticasone propio madina 0.5 MG/ACTUAT / salmeterol 0.05 MG/ACTUAT Dry Powder Inhaler [Advair] 5143-91-23M86:00:00.000+00:0 0 - Completed Patient Care team information Name Category Status Period Participants - - Proposed period not known -
--- OUTSIDE RECORDS SUMMARY | 2025-03-26 07:35 | XMS_ITS | Clinical Summary ---
Author Organization Healthcare Address [address] [place] [address] Care Team Providers Care Dynamometer Tuner Name Role Phone Cristopher Gray MD Primary Care Provider [phone] Latanya Becker Unavailable [phone] Saima Esparza MD Unavailable [phone] 2 Allergies Active Allergy Reactions Criticality Noted Date Comments Other Unknown - Patient st ates they do not know rxn details Low 04/10/2016 Sulfa Drugs Other - please docum ent in the comment field,Hives,Rash Medium 02/26/2011 Sulfacetamide Sodium-Sulfur Other - plea se document in the comment field Low 12/17/2022 Sulfur Other - please docum ent in the comment field Low 05/03/2023 Medications finasteride (Proscar) 5 MG tablet Take 1 tablet (5 mg) by mouth 1 (one) time each day in the morning. 04/10/20 16 Active levothyroxine (Synthroid, Levoxyl) 112 MCG tablet Take 1 tablet (112 mcg) by mouth 1 (one) time each day before breakfast. 04/10/20 16 Active nitrofurantoin (Macrodantin) 50 MG capsule Take 1 capsule (50 mg) by mouth 1 (one) time each day in the morning. 04/10/20 16 Active rosuvastatin (Crestor) 10 MG tablet Take 1 tablet (10 mg) by mouth 1 (one) time each day in the evening. 04/10/20 16 Active sertraline (Zoloft) 50 MG tablet Take 1 tablet (50 mg) by mouth 1 (one) time each day in the morning. 04/10/20 16 Active tamsulosin (Flomax) 0.4 MG 24 hr capsule Take 1 capsule (0.4 mg) by mouth every night. 04/10/20 16 Active valsartan (Diovan) 160 MG tablet Take 1 tablet (160 mg) by mouth 1 (one) time each day in the morning. 04/10/20 16 Active triamcinolone (Nasacort) 55 MCG/ACT nasal inhaler SPRAY 1-2 SPRAY INTO BOTH NOSTRILS ONCE A DAY 11/20/19 23 Active traZODone (Desyrel) 50 MG tablet Take 1 tablet (50 mg) by mouth every night. Active montelukast (Singulair) 10 MG tablet Take 1 tablet (10 mg) by mouth every night. 10/20/19 23 Active Advair Diskus 500-50 MCG/ACT diskus inhaler Inhale 1 puff 2 (two) times a day. 11/23/19 23 Active fexofenadine (Keena) 180 MG tablet Take 1 tablet (180 mg) by mouth 1 (one) time each day in the morning. 11/03/19 23 Active dilTIAZem CD (Cardizem CD) 240 MG 24 hr capsule Take 1 capsule (240 mg) by mouth 1 (one) time each day in the morning. 10/14/20 22 Active aspirin 81 MG EC tablet Take 1 tablet (81 mg total) by mouth 1 (one) time each day. Hold your dose for 2 weeks or until your neurosurgeon tells you it is okay to restart. 12/26/19 23 Active mupirocin (Bactroban) 2 % ointment 01/16/20 23 Active fenofibrate (Triglide) 160 MG tablet Active fluticasone (Flonase Allergy Relief) 50 MCG/ACT nasal spray Two times a day Acti ve Azelastine HCl 137 MCG/SPRAY solution SPRAY 1 SPRAY INTO EACH NOSTRIL TWICE A DAY NEEDED FOR ALLERGIES 07/06/20 23 Active albuterol 108 (90 Base) MCG/ACT inhaler INHALE TWO PUFFS BY MOUTH EVERY 6 HOURS NEEDED 12/24/19 24 Active ciprofloxacin (Cipro) 500 MG tablet Take by mouth 2 (two) times a day. Active famotidine (Pepcid) 20 MG tablet 10/03/20 24 Active naproxen (Naprosyn) 500 MG tablet 10/03/20 24 Active amantadine (Symmetrel) 100 MG tablet 02/15/20 25 Active celecoxib (CeleBREX) 100 MG capsule Take 1 capsule by mouth 2 times a day. 11/17/19 25 Active Jardiance 10 MG Take 1 tablet by mouth daily. 02/22/20 25 Active furosemide (Lasix) 40 MG tablet TAKE ONE TABLET BY MOUTH EVERY DAY NEEDED FOR EDEMA 02/22/20 25 Active metoprolol succinate XL (Toprol-XL) 25 MG 24 hr tablet Take 1 tablet by mouth daily. 02/22/20 25 Active pantoprazole (Protonix) 40 MG EC tablet take one tablet by mouth every day on an empty stomach 02/22/20 25 Active Xarelto 20 MG tablet TAKE ONE TABLET BY MOUTH EVERY EVENING with meal 02/27/20 25 Active Entresto 24-26 MG tablet Take 1 tablet by mouth 2 times a day. 02/22/20 25 Active spironolactone (Aldactone) 25 MG tablet Take 1 tablet by mouth daily. 02/22/20 25 Active cephalexin (Keflex) 250 MG capsule Take by mouth daily. 03/08/20 25 Active gabapentin (Neurontin) 400 MG capsule 03/19/20 25 Active gabapentin (Neurontin) 300 MG capsule Take 1 capsule (300 mg) by mouth 4 (four) times a day if needed. 04/13/20 16 025 Discontinued cephalexin (Keflex) 500 MG capsule 01/28/20 23 025 Discontinued Active Problems Problem Noted Date Diagnosed Date Normal pressure hydrocephalus 12/03/2022 Resolved Problems Problem Noted Date Diagnosed Date Resolved Date Hydrocephalus 12/24/2022 12/25/2022 NPH (normal pressure hydrocephalus) 12/14/2022 12/25/2022 Encounters Date Type Department Care Team Description 03/20/2025 1:00 PM EDT Office Visit OR Clinic [facility] Clinic [address] [place] [address] Latanya Becker, PA Normal pressure hydrocephalus (CMS/HCC) (Primary Dx) 03/20/2025 9:43 AM EDT - 03/20/2025 11:59 PM EDT Hospital Encounter [facility] [address] [place] [address] Cecy Alston, RN Cardiomyopathy; Chronic obstructive pulmonary disease, unspecified (CMS/HCC); Essential hypertension; Dyspnea on exertion; HFrEF (heart failure with reduced ejection fraction) (CMS/HCC) Discharge Disposition: Home or Self Care 03/20/2025 Travel 03/19/2025 Travel 03/19/2025 Telephone [facility] [address] [place] [address] Mary Nagy RN 01/25/2025 Telephone [place] [facility] [address] [place] [address] Latanya Becker PA HCN - Patient Message (Shunt concerns) from Last 3 Months Family History Medical History Relation Name Comments Diabetes Other 1 Hypertension Other 2 Other cancer Other 3 Anesthesia problems Neg Hx Malig Hyperthermia Neg Hx Relation Name Status Comments Other 1 Other 2 Other 3 Social History Tobacco Use Types Packs/Day Years Used Date Smoking Tobacco: Never Smokeless Tobacco: Never Tobacco Cessation:Counseling Given: Not Answered Alcohol Use Standard Drinks/Week Comments No 0 [...] on file Sexual Orientation Not on file Last Filed Vital Signs Vital Sign Reading Time Taken Comments Blood Pressure 115/65 03/20/2025 1:22 PM EDT Pulse 77 03/20/2025 1:22 PM EDT Temperature 36.4 C (97.5 F) 12/25/2022 3:35 PM EST Respiratory Rate 18 08/03/2023 9:24 AM EDT Oxygen Saturation 96% 03/20/2025 1:22 PM EDT Inhaled Oxygen Concentration - - Weight 91.6 kg (202 lb) 03/20/2025 11:36 AM EDT Height 180.3 cm (5' 11 ) 03/20/2025 1:22 PM EDT Body Mass Index 28.17 02/15/2024 11:11 AM EDT Plan of Treatment Upcoming Encounters Date Type Department Care Team (Late st Contact Info) Description 10/08/2025 9:00 AM EST Office Visit [place] [facility] [address] [place] [address] Latanya Becker PA [address] [place] [address] Health Maintenance Due Date Last Done Comments [facility]-Hepatitis C Screening 1955 [facility]-Medicare Annual Wellness (AWV) 1955 [facility]-Infant/Child/Adol SDOH Screenings 1955 [facility]- SDOH Screenings 1971 [facility]-Adult SDOH Screenings 1971 [facility]-DTaP,Tdap,and Td Vaccines (1 - Tdap) 01/25/1972 CT Colonography 1998 Colonoscopy 1998 FIT-DNA 1998 FIT 1998 FOBT 1998 Sigmoidoscopy 1998 [facility]-Colorectal Cancer Screening 1998 [facility]-Zoster Vaccines (2 of 2) 12/02/2018 10/07/2018 [id number]-RSOCX-37 Vaccine ( season) 2024 08/20/2021, 03/24/2021, 03/02/2021 [facility]-Depression Screening 10/05/2025 10/05/2024, 09/17 [facility]-Hepatitis A Vaccines Aged Out 06/14/2019, 08/20 No longer eligible based on patient's age to complete this topic [facility]-Pneumococcal Vaccine: 50+ Years Completed 04/05/2024, 07/22/2018, 01/28/2017 [facility]-RSV Vaccine: 60+ Years or Completed 07/06/2024 [facility]-Influenza Vaccine Completed 08/07/2024 , 07/30/2023, 07/30/2022, Additional history exists [facility]-Obesity Intervention Completed 025, 10/05/2024, 10/05/2024, Additional history exists HPV Vaccines Aged Out No longer eligi ble based on patient's age to complete this topic [facility]-HIB Vaccines Aged Out No longer e ligible based on patient's age to complete this topic [facility]-IPV Vaccines Aged Out No longer e ligible based on patient's age to complete this topic [facility]-Rotavirus Vaccines Aged Out No lo nger eligible based on patient's age to complete this topic Medical Devices Implanted Type Area Paper Cup Machine Tender Device Identifier Shelf Expiration Date Model / Serial / Lot Certas Plus Inline Siphon - [id number] Implanted:Qty: 1 on 12/24/2022 by Jerrell Jarrett MD at [facility] [id number] 08/17/2027 [id number] / / [id number] Catheter Antibiotic Str Vent - [id number] Implanted:Qty: 1 on 12/24/2022 by Jerrell Jarrett MD at [facility] [id number] 09/16/2023 [id number] / / [id number] Procedures Procedure Name Priority Date/Time Associated Diagnosis Comments MR CARDIAC MORPHOLOGY AND FUNCTION W LATOYA FLOW MAPPING W AND WO CONTRAST Routine 03/20/2025 12:45 PM EDT Cardiomyopathy Chronic obstructive pulmonary disease, unspecified (CMS/HCC) Essential hypertension Dyspnea on exertion HFrEF (heart failure with reduced ejection fraction) (CMS/HCC) HEMATOCRIT, BLOOD STAT 03/20/2025 11: 46 AM EDT from Last 3 Months Results * MR Cardiac Morphology and Function W Velocity Flow Mapping W and WO Contrast (03/20/2025 12:45 PM EDT) Anatomical Region Laterality Modality Heart Magnetic Resonan ce Impressions 03/20/2025 3:43 PM EDT 1. Normal sized left ventricle with mildly reduced global systolic function (LVEF 50%). There is no evidence of left ventricular myocardial late gadolinium enhancement. Normal marshall T1 mapping and ECV is not suggestive [...] Arnav Eli et al. J Cardiovasc Magn Reson. 2020;22:87) [...] --- Tissue Characterization --- T1 Mapping: Myocardial marshall T1: 1053ms Blood pool marshall T1: 1581ms Myocardial post contrast T1: 462ms [...] without contrast was performed on 1.5T Siemens AeraMRI scanner. Imaging sequences included bright blood axial [...] --- Tissue Characterization --- T1 Mapping: Myocardial marshall T1: 1053ms Blood pool marshall T1: 1581ms Myocardial post contrast T1: 462ms [...] of left ventricular myocardiallate gadolinium enhancement. Normal marshall T1 mapping and ECV is notsuggestive of infiltrative cardiomyopathy. 2. Normal sized right ventricle with normal global systolic function (RVEF52%). 3. No significant valvular abnormalities. 4. No evidence of intra-cardiac shunt. Critical Result: No. COMMUNICATION: Per this written report. By electronically signing this report, I, the attending physician, [email or web address] I have personally reviewed the images/data for the aboveexamination(s) and agree with the final edited report. Drafted by Katherine Lewis on 03/20/2025 2:47 PM Final report signed by Jason Acevedo MD on 03/20/2025 3:43 PM us [facility] MRI PROCEDURES Final Result * Hematocrit, Blood (03/20/2025 11:46 AM EDT) HCT 42.1 40.0 - 51.0 % LAB HEMATOLOGY METHOD 03/20/2025 12:12 PM EDT [facility] Blood Venous blood specimen / Unknown Venipuncture / Unknown 03/20/2025 11:46 AM EDT 03/20/2025 12:02 PM EDT us Katherine Lewis MD LAB BLOOD ORDERABLES Final Resu lt [facility] [address] [place] [address] from Last 3 Months Insurance [employer] MEDICARE Advance Directives * Full Code (Latest Code Status on File) Date Activated Date Inactivated Comments 12/24/2022 9:13 AM 12/25/2022 6:51 PM Question Answer Comments Patient has decision-making capacity? Yes Care Teams Dynamometer Tuner Relationship Specialty Start Date End Date Cristopher Gray MD [id number] [place] [address] PCP - General 12/14/22 Latanya Becker PA [address] [id number] Physician Commercial Litigation Attorney Neurosurgery 05/03/23 Saima Esparza MD [address], [place] [id number] Referring Physician 05/03/23
== END 2025-03-26 23:59 | disposition home or self-care (01) ==
LOC: RT 07:32
PROVIDERS: PCP Internal Medicine; Visit Provider Internal Medicine Pulmonary Disease
DX: R06.09 Other forms of dyspnea (principal); R06.02 Shortness of breath
CPT/HCPCS: 94618

== ENCOUNTER 2025-04-03 13:07 | Outpatient (CLI) | payer BC, MEDICARE, SELFPAY ==
--- OUTSIDE RECORDS SUMMARY | 2025-03-20 09:43 | XMS_ITS | Encounter Summary ---
Author Organization Healthcare Address [address] [place] [address] Care Team Providers Care Marketing Consultant Name Role Phone Cristopher Gray MD Primary Care Provider [phone] Latanya Becker Unavailable [phone] Saima Esparza MD Unavailable [phone] Reason for Referral * Imaging (Routine) - Closed Specialty Diagnoses / Procedures Referred By Bharat t Referred To Contact Radiology Diagnoses Cardiomyopathy Chronic obstructive pulmonary disease, unspecified (CMS/HCC) Essential hypertension Dyspnea on exertion HFrEF (heart failure with reduced ejection fraction) (CMS/HCC) Procedures MR Cardiac Morphology and Function W Velocity Flow Mapping W and WO Contrast Bala Smith PA [address] [place] [address] [employer] [place] [address] Phone: tel: fax: Referral ID Status Reason Start Date Expiration Date Visits Re quested Visits Authorized [id number] Closed 02/13/2025 08/15/2026 1 1 Reason for Visit * Imaging (Routine) - Closed Specialty Diagnoses / Procedures Referred By Bharat esquivel Referred To Contact Radiology Diagnoses Cardiomyopathy Chronic obstructive pulmonary disease, unspecified (CMS/HCC) Essential hypertension Dyspnea on exertion HFrEF (heart failure with reduced ejection fraction) (CMS/HCC) Procedures MR Cardiac Morphology and Function W Velocity Flow Mapping W and WO Contrast Bala Smith PA [address] [place] [address] [employer] [address] Phone: tel: fax: Referral ID Status Reason Start Date Expiration Date Visits Re quested Visits Authorized [id number] Closed 02/13/2025 08/15/2026 1 1 Encounter Details Date Type Department Care Team (Souleymane stephens Contact Info) Description 03/20/2025 9:43 AM EDT - 03/20/2025 11:59 PM EDT Hospital Encounter [facility] Radiology [address] [place] [address] Cecy Alston RN [facility] RADIOLOGY Cardiomyopathy; Chronic [...] Visit [place] [facility] [address], [address] [place] [address] Latanya Becker PA [address] [place] [address] documented as of this encounter [...] left ventricular myocardial late gadolinium enhancement. Normal solomon T1 mapping and ECV is not suggestive [...] --- Tissue Characterization --- T1 Mapping: Myocardial solomon T1: 1053ms Blood pool solomon T1: 1581ms Myocardial post contrast T1: 462ms [...] --- Tissue Characterization --- T1 Mapping: Myocardial solomon T1: 1053ms Blood pool solomon T1: 1581ms Myocardial post contrast T1: 462ms [...] of left ventricular myocardiallate gadolinium enhancement. Normal solomon T1 mapping and ECV is notsuggestive of [...] LAB HEMATOLOGY METHOD 03/20/2025 12:12 PM EDT [facility] Blood Venous blood specimen / Unknown Venipuncture / Unknown 03/20/2025 11:46 AM EDT 03/20/2025 12:02 PM EDT us Katherine Lewis MD LAB BLOOD ORDERABLES Final Resu lt [facility] [address] [place] [address] documented in this encounter Visit Diagnoses Diagnosis [...] documented as of this encounter Care Teams Marketing Consultant Relationship Specialty Start Date End Date Cristopher Gray MD [facility] [address] [place] [address] PCP - General 12/14/22 Latanya Becker PA [address] [facility] [address] [place] [address] Physician Weaver Dobby Loom Neurosurgery 05/03/23 Saima Esparza MD [address] [place] [address] Referring Physician 05/03/23 documented as of this encounter
--- OUTSIDE RECORDS SUMMARY | 2025-03-20 13:00 | XMS_ITS | Encounter Summary ---
Author Organization Healthcare Address [address] [place] [address] Care Team Providers Care Core Composer Machine Tender Name Role Phone Cristopher Gray MD Primary Care Provider [phone] Latanya Becker Unavailable [phone] Saima Esparza MD Unavailable [phone] Reason for Visit * Reason Comments Follow-up Encounter Details Date Type Department Care Team (Latest Contact Info) Description 03/20/2025 1:00 PM EDT Office Visit [place] [facility] [address], [address] [place] [address] Latanya Becker PA [address] [place] [address] Normal pressure hydrocephalus (CMS/HCC) (Primary [...] device check Maintain Dec appt [facility] Will be discussing pacer/defibrillator (25% ejection fraction) Other than the obvious avoiding tubing, no restrictions or reservations from a NS standpoint. If any MRIs are needed will just need shunt check afterward within 24 hours. Thank you. If there are any questions or concerns please feel free to contact us: [facility] Department of Neurosurgery [address] [place] [address] [place], [place] [address] ; TIME A total of 20 minutes [...] Description 10/08/2025 9:00 AM EST Office Visit [place] [facility] [address], [address] [place] [address] Latanya Becker PA [address] [facility]01 [place] [address] documented as of this encounter Visit Diagnoses [...] documented as of this encounter Care Teams Core Composer Machine Tender Relationship Specialty Start Date End Date Cristopher Gray MD [address] [facility] [address] [place] [address] PCP - General 12/14/22 Latanya Becker PA [address] [place] [address] Physician Type Mapper Neurosurgery 05/03/23 Saima Esparza MD [address] [place] [address] Referring Physician 05/03/23 documented as of this encounter
--- NOTE | 2025-04-03 | CA_ITS ---
APPROVED REPORT EXAM: Comprehensive 2D, Doppler, and color-flow Echocardiogram Distribution Estimator: Lily Manzano, RCS, RVS Ht: 5 ft 11 in Wt: 202lbs BSA: 2.12 BP: 95/66 mmHg Indications: CM-LVF 25%-echo, MRI EF+50%. Lifevest Echo Enhancing Agent Indication: Rule out thrombus Agent(s) / Amount(s) Used: Definity 2 cc 2D Dimensions IVSd 0.98 cm M: 0.6-1.2 LVEF (Visual) 53.60 % PWd 1.08 cm M: 0.6 - 1.2 LVDd 5.54 cm M: 4.2 - 5.9 LVDs 3.99 cm M: 2.5 - 4.0 Left Atrium 2.96 cm M: 3.0 - 4.0 M-Mode Dimensions RVDd 2.85 cm (0.9-2.6) LA Diam 3.71 cm (1.9-4.0) LVDd 5.79 cm (3.5-5.7) LVDs 4.40 cm (3.5-5.7) IVSd 0.80 cm (0.6-1.1) PWd 0.80 cm (0.6-1.1) EF (Teich) 49.20% EPSs 1.01 cm FS 25.30% EDV (Teich) 172.50 mL TAPSE 2.26 (<1.7) ESV (Teich) 87.70 mL LV Diastology E Decel Time 127 (160-240 msec) E/A Ratio 0.77 MED A' 11.80 cm/s LAT A' 11.70 cm/s Aortic Valve ERNA Index 1.05 cm2/m2 AoV Peak [place]. 139.0 (50-130 cm/s) AO Peak GR. 7.70 mmHg AO Mean GR. 3.90 (<5 mmHg) AO VTI 24.4 (18-25 cm) ERNA (VTI) 2.27 (2.5-4.5 cm2) Mitral Valve MV A Velocity 80.0 (40-130 cm/s) E/A Ratio 0.77 Tricuspid Valve TR P. Velocity 203.00 cm/s Left Ventricle The left ventricle is normal size. The left ventricular systolic function is normal. The left ventricular ejection fraction is within the normal range. There is normal left ventricular wall thickness. There is normal LV segmental wall motion. The left ventricular diastolic function is normal. No left ventricle thrombus noted on this study. LVEF is 55%. Right Ventricle The right ventricle is normal size. The right ventricular systolic function is normal. Atria Left atrium is mildly dilated. Right atrium is mildly dilated. There is no Doppler evidence of interatrial shunt. Aortic Valve The aortic valve opens well. There is no aortic valvular stenosis. Trace aortic regurgitation. Mitral Valve The mitral valve is normal in structure. No evidence of mitral valve stenosis. Trace mitral regurgitation. Tricuspid Valve Tricuspid valve is grossly normal in structure and function. Trace tricuspid regurgitation. There is insufficient TR jet to estimate RVSP. Pulmonic Valve The pulmonary valve is normal in structure. Trace pulmonic regurgitation. Great Vessels The aortic root is normal in size. IVC is normal in size and collapses >50% with inspiration. Pericardium There is no pericardial effusion. Other Information Study Quality: Fair Conclusion Normal LV systolic function. Mild biatrial dilation. No significant valvular stenosis or regurgitation. Compared to prior study from 12/25/2024, the LV systolic function is improved and is now normal. Electronically signed by : Megha Kapoor MD 04/04/2025 13:23:10
--- OUTSIDE RECORDS SUMMARY | 2025-04-03 13:11 | XMS_ITS | Encounter Summary ---
Author Organization Healthcare Address [address] [place] [address] Care Team Providers Care Business Services Analyst Name Role Phone Cristopher Gray MD Primary Care Provider [phone] Latanya Becker Unavailable [phone] Saima Esparza MD Unavailable [phone] Encounter Details Date Type Department Care Team (Late Contact Info) Description 03/19/2025 Telephone [facility] [address] [place] [id number] Mary Nagy RN [facility] Social History [...] Visit [place] [facility] [address] [place] [address] Latanya Becker, GARRISON [address] [place] [address] documented as of this encounter [...] documented as of this encounter Care Teams Business Services Analyst Relationship Specialty Start Date End Date Cristopher Gray MD [facility] [address] [place] [address] PCP - General 12/14/22 Latanya Becker PA [address] [phone] Physician Director Of Patient Financial Services Neurosurgery 05/03/23 Saima Esparza MD [address] [place] [address] Referring Physician 05/03/23 documented as of this encounter
--- OUTSIDE RECORDS SUMMARY | 2025-04-03 13:11 | XMS_ITS | Encounter Summary ---
Author Organization Healthcare Address [address] [place] [address] Care Team Providers Care Basic Combatant Swimmer Name Role Phone Humberto Peralta MD Primary Care Provider [phone] Cristopher Gray MD Primary Care Provider [phone] Latanya Becker Unavailable Saima Esparza MD Unavailable [phone] Encounter Details Date Type Department Care Team (Late Contact Info) Description 04/03/2022 Orders Only External Location [address] [place] [address] Saima Esparza MD [address] [place], [place] [id number] Social History Tobacco Use Types Packs/Day Years [...] Visit [place] [facility] [address] [place] [address] Latanya Becker PA [address] [place] [address] documented as of this encounter [...] on filedocumented in this encounter Care Teams Basic Combatant Swimmer Relationship Specialty Start Date End Date Humberto Peralta MD [address] [place] [address] PCP - General 02/28/21 12/02/22 Cristopher Gray MD [address] [place] [address] PCP - General 12/14/22 Latanya Becker PA [address] [phone] Physician Director Of Occupational Therapy Neurosurgery 05/03/23 Saima Epsarza MD [address] [place] [address] Referring Physician 05/03/23 documented as of this encounter
--- OUTSIDE RECORDS SUMMARY | 2025-04-03 13:11 | XMS_ITS | Encounter Summary ---
Author Organization Healthcare Address [address] [place] [address] Care Team Providers Care Metal Filer Name Role Phone Cristopher Gray MD Primary Care Provider [phone] Latanya Becker Unavailable [phone] Saima Esparza MD Unavailable [phone] Encounter Details Date Type Department Care [...] Visit [place] [facility] [address] [place] [address] Latanya Becker, GARRISON [address] [place] [address] documented as of this encounter [...] documented as of this encounter Care Teams Metal Filer Relationship Specialty Start Date End Date Cristopher Gray MD [id number] [place] [address] PCP - General 12/14/22 Latanya Becker PA [address] [facility] [address] [place] [address] Physician Field Contact Person Neurosurgery 05/03/23 Saima Esparza MD [address] [place], [place] [id number] Referring Physician 05/03/23 documented as of this encounter
--- OUTSIDE RECORDS SUMMARY | 2025-04-03 13:11 | XMS_ITS | Encounter Summary ---
Author Organization Healthcare Address [address] [place] [address] Care Team Providers Care Maintenance Supervisor 2Nd Shift Name Role Phone Cristopher Gray MD Primary Care Provider [phone] Latanya Becker Unavailable [phone] Saima Esparza MD Unavailable [phone] Encounter Details Date Type Department Care [...] Visit [place] [facility] [address] [place] [address] Latanya Becker PA [address] [place] [address] documented as of this encounter [...] documented as of this encounter Care Teams Maintenance Supervisor 2Nd Shift Relationship Specialty Start Date End Date Cristopher Gray MD [id number] [place] [address] PCP - General 12/14/22 Latanya Becker PA [address] [facility] [address] [place] [address] Physician Grain Elevator Agent Neurosurgery 05/03/23 Saima Esparza MD [address] [place] [address] Referring Physician 05/03/23 documented as of this encounter
--- OUTSIDE RECORDS SUMMARY | 2025-04-03 13:11 | XMS_ITS | Encounter Summary ---
Author Organization Healthcare Address [address] [place] [address] Care Team Providers Care Guest Services Officer Name Role Phone Humberto Peralta MD Primary Care Provider [phone] Cristopher Gray MD Primary Care Provider [phone] Latanya Becker Unavailable [phone] Saima Esparza MD Unavailable [phone] Encounter Details Date Type Department Care Team (Late st Contact Info) Description 04/12/2022 Orders Only External Location [address] [place] [address] Provider, External Social History Tobacco [...] Visit [place] [facility] [address] [place] [address] Latanya Becker, PA [address] [place] [address] documented as of this encounter [...] on filedocumented in this encounter Care Teams Guest Services Officer Relationship Specialty Start Date End Date Humberto Peralta MD [address] [place] [address] PCP - General 02/28/21 12/02/22 Cristopher Gray MD [id number] [place] [address] PCP - General 12/14/22 Latanya Becker PA [address] [phone] Physician Dial Mounter Neurosurgery 05/03/23 Saima Esparza MD [address] [place] [address] Referring Physician 05/03/23 documented as of this encounter
--- OUTSIDE RECORDS SUMMARY | 2025-04-03 13:11 | XMS_ITS | Encounter Summary ---
Author Organization Healthcare Address [address] [place] [address] Care Team Providers Care Construction Accountant Name Role Phone Cristopher Gray MD Primary Care Provider Latanya Becker Unavailable [phone] Saima Esparza MD Unavailable [phone] Reason for Visit * Reason Onset Date Comments HCN - Patient Message 01/25/2025 Shunt conc erns Encounter Details Date Type Department Care Team (Late st Contact Info) Description 01/25/2025 Telephone [place] [facility] [address] [place] [address] Latanya Becker, GARRISON [address] [place] [address] HCN - Patient Message (Shunt [...] optimal time of day to reach caller: [phone] / pt [phone] Note: Please do not reply to this message. Follow-up communication and further actions as a result of this message need to be communicated with the patient directly, if the patient is not active onMyChart. If the patient is active on MyChart, they will receive notification of the communication/outcome via [employer]. documented in this encounter Plan of Treatment Upcoming Encounters Date Type Department Care Team (Late st Contact Info) Description 10/08/2025 9:00 AM EST Office Visit [place] [facility] [address] [place] [address] Latanya Becker PA [address] [place] [address] documented as of this encounter [...] documented as of this encounter Care Teams Construction Accountant Relationship Specialty Start Date End Date Cristopher Gray MD [address] [facility] [address] [place] [address] PCP - General 12/14/22 Latanya Becker PA [address] [place] [id number] Physician Billiard Player Neurosurgery 05/03/23 Saima Esparza MD [address] [place] [address] Referring Physician 05/03/23 documented as of this encounter
--- OUTSIDE RECORDS SUMMARY | 2025-04-03 13:11 | XMS_ITS | Data Portability ---
Author Organization [facility] [employer] [facility] Address [address] [place] [address] Care Team Providers Care Story Teller Name Role Phone TOPHER DEPMSEY Primary Care Provider [phone] Assessment Encounter Date Assessment Date Assessment LastModified by Organization Details LastModified Time 02/07/2024 02/07/2024 Patient presents with symptoms of UTI. Results of dipstick were positive for UTI. Advised to drink clear fluids, Tylenol for pain and take prescribed medications as instructed. Patient encouraged to follow up within 1 week if not improving. [email or web address] Not available 02/07/2024 10:09:39 Plan of Treatment Reminders Order Date Submit Date Provider Last Modified By Organization Details Last Modified Time Details Appointments None recorded. Lab urinalysis, dipstick 2023 024 [email or web address] 5 [facility], [address] [place], [address], 4 10:11:37 urinalysis, dipstick 2022 023 [email or web address] 5 [facility], [address] [place], [address], 3 09:07:18 Referral None recorded. Procedures None recorded. Surgeries None recorded. Imaging None recorded. Medication Orders ciprofloxac in 500 mg tablet 2023 024 [id number], [address] [place], [address], 4 10:11:38 nystatin 100,000 unit/mL oral suspension 2023 024 [facility], [address] [place], [address], 13:17:59 Zithromax Z-Reji 250 mg tablet 2023 024 [facility], [address] [place], [address], 09:34:12 Augmentin 875 mg-125 mg tablet 2023 024 [facility], [address] [place], [address], 10:30:18 Patient TargetsNo targets recorded. Patient Instructions Encounter Date Encounter Id Patient Instructions Last Modified By Organization Details Last Modified Time 07/01/2023 [id number] nutrition [email or web address] Not available 06/18 10:29:48 exercise [email or web address] Not available 07/01 10:29:48 10/19/2023 [id number] eating healthy foods: care instructions [email or web address] Not available 10/19/2023 10:20:51 exercise [email or web address] Not available 10/19 10:20:51 11/22/2023 [id number] eating healthy foods: care instructions Not available 11/23/2023 18:27:37 exercise [email or web address] Not available 11/23 18:27:37 02/07/2024 [id number] eating healthy foods: care instructions [email or web address] Not available 02/07/2024 10:11:35 walking for exercise: care instructions [email or web address] Not available 02/07/2024 10:11:35 Reason for Referral None Reported. Results Created Date Observation Date Name Description Value Unit Range Abnormal Flag Note LastModifiedBy Organization Detail LastModifiedTime 01/13/20 23 01/12/2023 urina lysis , dipst ick Leukocytes Negati ve Not Available [facility] [address] [place], [address], 01/12/2023 09:52:20 01/13/20 23 01/12/2023 urina lysis , dipst ick Nitrite negati ve Not Available [facility] [address] [place] [address], [address], 01/12/2023 09:52:20 01/13/20 23 01/12/2023 urina lysis , dipst ick Urobilinogen .2 Not Available [facility] [address] [place] [address], [address], 01/12/2023 09:52:20 01/13/20 23 01/12/2023 urina lysis , dipst ick Protein Negati ve Not Available [facility] [address] [place] [address], [address], 01/12/2023 09:52:20 01/13/20 23 01/12/2023 urina lysis , dipst ick pH 6.0 Not Available [facility] [address] [place] [address], [address], 01/12/2023 09:52:20 01/13/20 23 01/12/2023 urina lysis , dipst ick Blood Negati ve Not Available [facility] [address] [place] [address], [address], 01/12/2023 09:52:20 01/13/20 23 01/12/2023 urina lysis , dipst ick Specific [place] 1.030 Not Available [facility] [address] [place] [address], [address], 01/12/2023 09:52:20 01/13/20 23 01/12/2023 urina lysis , dipst ick Ketone Negati ve Not Available [facility] [address] [place] [address], [address], 01/12/2023 09:52:20 01/13/20 23 01/12/2023 urina lysis , dipst ick Bilirubin Negati ve Not Available [facility] [address] [place], [address], 01/12/2023 09:52:20 01/13/20 23 01/12/2023 urina lysis , dipst ick Glucose Negati ve Not Available [facility] [address] [place], [address], 01/12/2023 09:52:20 01/13/20 23 01/12/2023 urina lysis , dipst ick Appearance Clear Not Available [facility] [address] [place] [address], [address], 01/12/2023 09:52:20 01/13/20 23 01/12/2023 urina lysis , dipst ick Color Dark Yellow Not Available [facility] [address] [place], [address], 01/12/2023 09:52:20 02/07/20 24 02/07/2024 urina lysis , dipst ick Leukocytes Modera te Not Available [facility] [address] [facility], [place], [address], 02/07/2024 09:34:29 02/07/20 24 02/07/2024 urina lysis , dipst ick Nitrite negati ve Not Available [facility] [address] [facility], [place], [address], 02/07/2024 09:34:29 02/07/20 24 02/07/2024 urina lysis , dipst ick Urobilinogen .2 Not Available [facility] [address] [facility], [place], [address], 02/07/2024 09:34:29 02/07/20 24 02/07/2024 urina lysis , dipst ick Protein Negati ve Not Available [facility] [address] [facility], [place], [address], 02/07/2024 09:34:29 02/07/20 24 02/07/2024 urina lysis , dipst ick pH 5.0 Not Available [facility] [address] [facility], [place], [address], 02/07/2024 09:34:29 02/07/20 24 02/07/2024 urina lysis , dipst ick Blood Small Not Available [facility] [address] [facility], [place], [address], 02/07/2024 09:34:29 02/07/20 24 02/07/2024 urina lysis , dipst ick Specific [place] 1.030 Not Available [facility] [address] [facility], [place], [address], 02/07/2024 09:34:29 02/07/20 24 02/07/2024 urina lysis , dipst ick Ketone Negati ve Not Available [facility] [address] [facility], [place], [address], 02/07/2024 09:34:29 02/07/20 24 02/07/2024 urina lysis , dipst ick Bilirubin Negati ve Not Available [facility] [address] [facility], [place], [address], 02/07/2024 09:34:29 02/07/20 24 02/07/2024 urina lysis , dipst ick Glucose Negati ve Not Available [facility] [address] [facility], [place], [address], 02/07/2024 09:34:29 02/07/20 24 02/07/2024 urina lysis , dipst ick Appearance Cloudy Not Available [facility] [address] [facility], [place], [address], 02/07/2024 09:34:29 02/07/20 24 02/07/2024 urina lysis , dipst ick Color Dark Yellow Not Available [facility] [address] [facility], [place], [address], 02/07/2024 09:34:29 Result Notes None recorded. 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 Procedures Surgical History Date Name Laterality Status Provider Name and Address Organization Details Recorded Time Eye Surgery completed [employer]. 07/22/2022 10:43:47 Unlisted px femur/knee completed [employer]. 07/22/2022 10:43:57 Imaging Results None recorded. Procedure Notes None recorded. Medical Equipment None Reported. Allergies Allergen ID Allergen Name Allergen Category Reaction Reaction Severity Criticality Documentation Date Start Date Code Code System Note Provider Name and Address Organization Details Recorded Time 68675 sulfur medicatio n Not available Not available Not available 06/23/2022 78742 RxNorm Yarely bourne [employer] 3 08:31:41 Medications Name Sig Start [...] Updated DateTime 4 179.07 cm 28 kg/m2 78405.2 9 g 97.9 [degF] 78 /min 98 % 98 % 112 mm[Hg] 68 mm[Hg] Lauren Escobar [facility] [employer] 4 09:10:24 Date Recorded Body height Body mass index (BMI) Body weight Body temperature Heart rate Oxygen saturation Oxygen saturation in Arterial blood by Pulse oximetry Provider Name and Address Organization Details Last Updated DateTime 4 179.07 cm 27.4 kg/m2 41403.9 2 g 97.6 [degF] 69 /min 97 % 97 % Lauren [employer] 4 10:30:01 Date Recorded Body height Body mass index (BMI) Body weight Body temperature Heart rate Oxygen saturation Oxygen saturation in Arterial blood by Pulse oximetry Systolic blood pressure Diastolic blood pressure Provider Name and Address Organization Details Last Updated DateTime 3 179.07 cm 27.9 kg/m2 84539.7 g 97.6 [degF] 80 /min 98 % 98 % 136 mm[Hg] 86 mm[Hg] [employer] 3 09:50:07 Date Recorded Body height Body mass index (BMI) Body weight Body temperature Heart rate Oxygen saturation Oxygen saturation in Arterial blood by Pulse oximetry Provider Name and Address Organization Details Last Updated DateTime 4 179.07 cm 27.7 kg/m2 21434.1 g 97.5 [degF] 84 /min 97 % 97 % Lauren [employer] 4 09:33:51 Date Recorded Body height Body mass index (BMI) Body weight Body temperature Heart rate Oxygen saturation Oxygen saturation in Arterial blood by Pulse oximetry Systolic blood pressure Diastolic blood pressure Provider Name and Address Organization Details Last Updated DateTime 3 179.07 cm 27.9 kg/m2 24196.7 g 97.9 [degF] 77 /min 97.6 % 97.6 % 132 mm[Hg] 82 mm[Hg] [employer] 3 09:44:10 Social History Question Answer Notes LastModified by Organizat ion Details LastModified Time Tobacco Smoking Status Never Smoker Yarely bourne [employer] 11/23/2022 08:30:47 Do You Have An [...] Information not available 08/07/2022 What Type Of Credit And Collections Representative Do You Use? None Information not available [...] Do You Have A Medical Power Of Chief Controller Station? No Information not available 08/07/2022 What Was [...] Functional Status Question Answer Note LastModified by [employer] ion Details LastModified Time Do you use [...] anxious, or unable to sleep at night)? [id number] [facility] Information not available 07/22/2022 Do you have [...] pneumococcal polysaccharide PPV23 8 completed Yarely Rivera [employer]. 09/16/2022 09:17:05 Influenza, high-dose, quadrivalent, PF 0 completed Yarely Rivera null, [employer]. 09/16/2022 09:17:05 COVID-19, mRNA, LNP-S, PF, 30 mcg/0.3 mL dose 1 completed Yarely Rivera [employer], [employer]. 09/16/2022 09:17:05 Hep A, adult 9 completed Yarely Nicole null, [employer]. 09/16/2022 09:17:05 Influenza, high-dose, trivalent, PF 9 completed Yarely Rivera null, [employer]. 09/16/2022 09:17:05 Hep A, adult 8 completed Yarely Nicole null, [employer]. 09/16/2022 09:17:05 zoster recombinant 8 completed Yarely Nicole null, [employer]. 09/16/2022 09:17:05 Influenza, high-dose, quadrivalent, PF 2 completed Yarelyzachary bourne, [employer] 09/16/2022 09:17:05 Pneumococcal conjugate PCV 13 7 completed Yarely Nicole bourne, [employer] 09/16/2022 09:17:05 COVID-19, mRNA, LNP-S, PF, 30 mcg/0.3 mL dose 1 completed Yarelyzachary bourne, [employer] 09/16/2022 09:17:05 COVID-19, mRNA, LNP-S, PF, 30 mcg/0.3 mL dose 1 completed Yarelyteresita bourne, [employer] 09/16/2022 09:17:05 Past Encounters Encounter ID Performer Location Encounter Start Date Encounter Closed Date Diagnosis/Indication Diagnosis SNOMED-CT Code Diagnosis ICD10 Code Diagnosis Note [id number] Nancy Anderson PA-C [employer] [place] [phone] 07/22/2022 10:24:49 07/23/2022 09:13:53 Viral upper respiratory tract infection 903220359 J06.9 Continue current allergy medication s. Reassured patient lungs are clear. F/u if new or worsening symptoms. Body mass index 25-29 - overweight 171711497 Z68.29 healthy diet and regular aerobic exercise program Tobacco non-user [id number] 001 93661 Z13.89 [id number] Nancy Anderson PA-C [employer] [place] [phone] 08/07/2022 11:01:10 08/13/2022 10:16:28 Acute otitis media 8957560 H65.01 Start zithromax. Nasal saline rinses, humidifier and continue current medication s. Body mass index 25-29 - overweight 608464925 Z68.29 healthy diet and regular aerobic exercise program Tobacco non-user 6974502 001 42738 Z13.89 [id number] Nancy Anderson PA-C [employer] [place] [phone] 8 08/14/2022 09:15:29 08/20/2022 12:00:16 Acute maxillary sinusitis 66362916 J01.00 Increase fluids, Tylenol for fever or pain, and humidifier , continue Flonase nasal spray [id number] Nancy Anderson PA-C [facility] [address] [place] [address] 09/01/2022 10:05:25 09/02/2022 07:35:25 Viral gastroenteritis 562207414 A08.4 soft bland diet for next 2-3 days, keep hydrated, rest, and Tylenol for fever or pain. F/u in3 days if not improved. [id number] Nancy Anderson PA-C [place] [phone] 3 09/16/2022 09:09:43 09/16/2022 11:58:06 Nausea and vomiting 07946853 R11.2 clear liquids for next 24 hours followed by BRAT diet advancing as tolerated. If symptoms fail to improve or worsen needs to f/u with PCP for evaluation . Tobacco non-user [id number] 001 76307 Z13.89 Body mass index 25-29 - overweight 382235396 Z68.29 healthy diet and regular aerobic exercise program [id number] Nancy Anderson PA-C [facility] [address] [place] [address] 11/20/2022 09:36:26 11/23/2022 11:40:31 Acute maxillary sinusitis 39629412 J01.00 Increase fluids, Tylenol for fever or pain, and humidifier , continue Flonase nasal spray and antihistam ine. F/u in 5-7 days if not improved. 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 Body mass index 25-29 - overweight 072150297 Z68.29 healthy diet and regular aerobic exercise program Tobacco non-user 9060492 001 26256 Z13.89 [id number] Nancy Anderson PA-C [facility] [employer] [address] [place] [address] 07/01/2023 09:40:52 07/01/2023 10:53:44 Viral upper respiratory tract infection 908120253 J06.9 Continue current allergy medication s and may try Clorecedin for congestion . Reassured patient lungs are clear. F/u in 3-5 days if fever or bodyaches occur new or worsening symptoms. Body mass index 25-29 - overweight 080585246 Z68.29 healthy diet and regular aerobic exercise program Tobacco non-user [id number] 001 64497 Z13.89 [id number] Nancy Anderson PA-C [facility] [address] [place] [address] 10/19/2023 09:03:43 10/19/2023 12:25:30 Acute upper respiratory infection 74695188 J06.9 Rx for Augmentin 875mg as prescribed . Continue Chlorecide n for congestion . Humidifier . F/u in 5-7 days if not improved. Body mass index 25-29 - overweight 430417098 Z68.29 healthy diet and regular aerobic exercise program Tobacco non-user 5369164 001 38700 Z13.89 [id number] Nancy Anderson PA-C [facility] [address] [place] [address] 11/22/2023 10:29:02 11/25/2023 12:04:41 Acute maxillary sinusitis 66056303 J01.00 Antibiotic s as prescribed . Increase fluids, Tylenol for fever or pain, and humidifier , continue Flonase nasal spray and antihistam ine F/u in 5-7 days if not improved. Candidiasis of mouth 797 90136 B37.0 Explained nature of illness to patient. Recommend removing dentures nightly. F/u in 2 weeks if symptoms persist or worsen Body mass index 25-29 - overweight 331780073 Z68.29 healthy diet and regular aerobic exercise program Tobacco non-user 3953807 001 43582 Z13.89 [id number] Nancy Anderson PA-C [facility] [employer] [address] [place] [address] 02/07/2024 09:32:47 02/10/2024 15:03:50 Acute urinary tract infection 085320368 N39.0 Cipro as prescribed . Tylenol for pain or fever. Increase fluids avoiding soda. F/u in7-10 days for recheck, sooner if needed. Body mass index 25-29 - overweight 725030815 Z68.29 healthy diet and regular aerobic exercise program Tobacco non-user 1027472 001 91816 Z13.89 Health Concerns Section Related Observation LastModified by Organization Detai ls LastModified Time None Recorded Concern Status LastModified by Organization Details LastModified Time None Recorded Advance Directives Directive N: Payers Insurance Date Sequence Insurance Name Policy Number Policy Ar[place]ula Covered Member ID [place] Member ID Guarantor Name 02/23/2024 1 [place] [id number] Toan T Suleiman II [id number] Toan T Suleiman 02/07/2024 [place] [employer] [facility] Toan T Suleiman [id number] Toan T Suleiman 02/07/2024 2 [place] Toan T Suleiman [id number] Toan T Suleiman Notes Date Note [...] 1 year ago. Nancy Anderson PA-C [address] [place], [address], [facility] [employer] 01/13/2023 13:16:35 07/01/2023 text/html Sinusitis/Allerg yRe [...] smoking or tobacco use Nancy Anderson PA-C [address] [place] [address], [address], [employer] 07/01/2023 10:30:23 10/19/2023 text/html Sinusitis/Allerg yRe [...] Risk Factors:history of smoking Nancy Anderson PA-C [address] [place] [address], [address], [employer] 10/19/2023 10:21:38 11/22/2023 text/html Sinusitis/Allerg yRe [...] smoking or tobacco use Nancy Anderson PA-C [address] [place] [address], [address], [employer] 11/23/2023 18:28:12 02/07/2024 text/html Lower Urinary [...] nausea; no vomiting;urgency;fr equency;dysuria Nancy Anderson PA-C [address] [place] [address], [address], [facility] [employer] 02/07/2024 10:12:10
--- OUTSIDE RECORDS SUMMARY | 2025-04-03 13:11 | XMS_ITS | Data Portability ---
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 Laboratory, [address] [place] [address], [address], 8 09:59:40 Referral None recorded. Procedures None recorded. Surgeries None recorded. Imaging None recorded. Medication Orders None recorded. Patient TargetsNo targets recorded. Patient Instructions Encounter Date Encounter Id Patient Instructions Last Modified By Organization Details Last Modified Time 06/22/2019 [id number] blood in the urine: care instructions Not available 06/22/2019 09:22:18 06/25/2020 [id number] blood in the urine: care instructions Not available 06/25/2020 09:20:38 Reason for Referral None Reported. Results Created Date Observation Date Name Description Value Unit Range Abnormal Flag Note LastModifiedBy Organization Detail LastModifiedTime 02/22/20 18 02/21/2018 urina lysis , dipst ick, auto Unknown Analyte Yellow Not Available [facility] Surgery Schedule [address] [place] [address], [address], 02/21/2018 15:02:56 02/22/20 18 02/21/2018 urina lysis , dipst ick, auto Unknown Analyte Clear Not Available [facility] Surgery Schedule [address] [place], [address], 02/21/2018 15:02:56 02/22/20 18 02/21/2018 urina lysis , dipst ick, auto Unknown Analyte 1.[address] [facility] Surgery Schedule [address] [place], [address], 02/21/2018 15:02:56 02/22/20 18 02/21/2018 urina lysis , dipst ick, auto Unknown Analyte 6.[address] [facility] Surgery Schedule [address] [place], [address], 02/21/2018 15:02:56 02/22/20 18 02/21/2018 urina lysis , dipst ick, auto Unknown Analyte 25 Kiko/ul Trace Not Available [facility] Surgery Schedule [address] [place], [address], 02/21/2018 15:02:56 02/22/20 18 02/21/2018 urina lysis , dipst ick, auto Unknown Analyte Negati ve Not Available [facility] Surgery Schedule [address] [place], [address], 02/21/2018 15:02:56 02/22/20 18 02/21/2018 urina lysis , dipst ick, auto Unknown Analyte Trace Not Available [facility] Surgery Schedule [address] [place], [address], 02/21/2018 15:02:56 02/22/20 18 02/21/2018 urina lysis , dipst ick, auto Unknown Analyte Normal Not Available [facility] Surgery Schedule [address] [place], [address], 02/21/2018 15:02:56 02/22/20 18 02/21/2018 urina lysis , dipst ick, auto Unknown Analyte Negati ve Not Available [facility] Surgery Schedule [address] [place], [address], 02/21/2018 15:02:56 02/22/20 18 02/21/2018 urina lysis , dipst ick, auto Unknown Analyte 4 mg/dl Not Available [facility] Schedule [address] [place], [address], 02/21/2018 15:02:56 02/22/20 18 02/21/2018 urina lysis , dipst ick, auto Unknown Analyte 1 mg/dl (+) Not Available [facility] Schedule [address] [place], [address], 02/21/2018 15:02:56 02/22/20 18 02/21/2018 urina lysis , dipst ick, auto Unknown Analyte 50 Issac/ul Not Available [facility] Schedule [address] [place] [address], [address], 02/21/2018 15:02:56 02/22/20 18 02/21/2018 urina lysis , dipst ick, auto Unknown Analyte Clean Catch Not Available [facility] Surgery Schedule [address] [place] [address], [address], 02/21/2018 15:02:56 02/22/20 18 02/21/2018 urina lysis , dipst ick, auto Unknown Analyte Automa ludin Not Available [facility] Surgery Schedule [address] [place] [address], [address], 02/21/2018 15:02:56 03/17/20 18 03/17/2018 cultu re, urine results [facility] e: CCUR Colle cted: 03/17 09:09 Site: Corine shena : 03/17 11:26 URINE SCREE N(CUL TURE) FINAL 03/21 11:53 03/21 No growt h day 4. Not Available [facility] [address] [place] [address], [address], 03/21/2018 11:53:16 03/17/20 18 03/17/2018 urina lysis , dipst ick, auto Unknown Analyte Yellow Not Available [facility] [address] [place], [address], 03/17/2018 09:03:16 03/17/20 18 03/17/2018 urina lysis , dipst ick, auto Unknown Analyte Clear Not Available [facility]rology [address] [place] [address], [address], 03/17/2018 09:03:16 03/17/20 18 03/17/2018 urina lysis , dipst ick, auto Unknown Analyte 1.010 Not Available [facility]rology [address] [place] [address], [address], 03/17/2018 09:03:16 03/17/20 18 03/17/2018 urina lysis , dipst ick, auto Unknown Analyte 7.0 Not Available [facility] Urology [address], [address], 03/17/2018 09:03:16 03/17/20 18 03/17/2018 urina lysis , dipst ick, auto Unknown Analyte 500 Kiko/ul (++) Not Available [facility] [address], [address], 03/17/2018 09:03:16 03/17/20 18 03/17/2018 urina lysis , dipst ick, auto Unknown Analyte Negati ve Not Available [facility] [address], [address], 03/17/2018 09:03:16 03/17/20 18 03/17/2018 urina lysis , dipst ick, auto Unknown Analyte Negtiv e Not Available [facility] [address], [address], 03/17/2018 09:03:16 03/17/20 18 03/17/2018 urina lysis , dipst ick, auto Unknown Analyte Normal Not Available [facility] [address] [place], [address], 03/17/2018 09:03:16 03/17/20 18 03/17/2018 urina lysis , dipst ick, auto Unknown Analyte Not Available [facility] [address] [place], [address], 03/17/2018 09:03:16 03/17/20 18 03/17/2018 urina lysis , dipst ick, auto Unknown Analyte Negati ve Not Available [facility] [address] [place], [address], 03/17/2018 09:03:16 03/17/20 18 03/17/2018 urina lysis , dipst ick, auto Unknown Analyte Normal Not Available [facility] [place], [address], 03/17/2018 09:03:16 03/17/20 18 03/17/2018 urina lysis , dipst ick, auto Unknown Analyte Negati ve Not Available [facility] [place], [address], 03/17/2018 09:03:16 03/17/20 18 03/17/2018 urina lysis , dipst ick, auto Unknown Analyte 250 Issac/ul Not Available [facility] [address] [place], [address], 03/17/2018 09:03:16 03/17/20 18 03/17/2018 urina lysis , dipst ick, auto Unknown Analyte Clean Catch Not Available [facility] [address] [place], [address], 03/17/2018 09:03:16 03/17/20 18 03/17/2018 urina lysis , dipst ick, auto Unknown Analyte Automa ludin Not Available [facility] [address] [place], [address], 03/17/2018 09:03:16 06/21/20 18 06/21/2018 urina lysis , dipst ick, auto Unknown Analyte Yellow Not Available [facility] [place], [address], 06/21/2018 09:05:06 06/21/20 18 06/21/2018 urina lysis , dipst ick, auto Unknown Analyte Clear Not Available [facility] [address] [place], [address], 06/21/2018 09:05:06 06/21/20 18 06/21/2018 urina lysis , dipst ick, auto Unknown Analyte 1.025 Not Available [facility] [address] [place], [address], 06/21/2018 09:05:06 06/21/20 18 06/21/2018 urina lysis , dipst ick, auto Unknown Analyte 5.0 Not Available [facility] [address] [place], [address], 06/21/2018 09:05:06 06/21/20 18 06/21/2018 urina lysis , dipst ick, auto Unknown Analyte Negati ve Not Available [facility] [address] [place], [address], 06/21/2018 09:05:06 06/21/20 18 06/21/2018 urina lysis , dipst ick, auto Unknown Analyte Negati ve Not Available [facility] [address] [place], [address], 06/21/2018 09:05:06 06/21/20 18 06/21/2018 urina lysis , dipst ick, auto Unknown Analyte Negtiv e Not Available [facility] [address] [place] [address], [address], 06/21/2018 09:05:06 06/21/20 18 06/21/2018 urina lysis , dipst ick, auto Unknown Analyte Normal Not Available [facility] [address] [place], [address], 06/21/2018 09:05:06 06/21/20 18 06/21/2018 urina lysis , dipst ick, auto Unknown Analyte Negati ve Not Available [facility] [address] [place] [address], [address], 06/21/2018 09:05:06 06/21/20 18 06/21/2018 urina lysis , dipst ick, auto Unknown Analyte 1 mg/dl Not Available [facility] [address] [place] [address], [address], 06/21/2018 09:05:06 06/21/20 18 06/21/2018 urina lysis , dipst ick, auto Unknown Analyte 1 mg/dl (+) Not Available [facility] [address] [place] [address], [address], 06/21/2018 09:05:06 06/21/20 18 06/21/2018 urina lysis , dipst ick, auto Unknown Analyte Negati ve Not Available [facility] [address] [place] [address], [address], 06/21/2018 09:05:06 06/21/20 18 06/21/2018 urina lysis , dipst ick, auto Unknown Analyte Clean Catch Not Available [facility] [address] [place] [address], [address], 06/21/2018 09:05:06 06/21/20 18 06/21/2018 urina lysis , dipst ick, auto Unknown Analyte Automa ludin Not Available [facility] [address] [place] [address], [address], 06/21/2018 09:05:06 06/22/20 19 06/22/2019 PSA, serum [...] absen ce of disea se. Not Available [facility] [address] [place] [address], [address], 06/22/2019 09:44:31 06/22/2006/22/2019 urina lysis , micro scopi c RBC, urine 3-10 0-2/hp f abnormal Not Available [facility] [address] [place] [address], [address], 06/22/2019 11:39:55 06/22/2006/22/2019 urina lysis , micro scopi c squamous epi. cells OCCASI ONAL 0-5/hp f normal Not Available [facility] [address] [place] [address], [address], 06/22/2019 11:39:55 06/22/2006/22/2019 urina lysis , dipst ick, auto Unknown Analyte Yellow Not Available [facility] [address] [place], [address], 06/22/2019 09:08:28 06/22/2006/22/2019 urina lysis , dipst ick, auto Unknown Analyte Clear Not Available [facility] [address] [place], [address], 06/22/2019 09:08:28 06/22/2006/22/2019 urina lysis , dipst ick, auto Unknown Analyte 1.020 Not Available [facility] [address] [place] [address], [address], 06/22/2019 09:08:28 06/22/2006/22/2019 urina lysis , dipst ick, auto Unknown Analyte 5.0 Not Available [facility] [address] [place], [address], 06/22/2019 09:08:28 06/22/2006/22/2019 urina lysis , dipst ick, auto Unknown Analyte Negati ve Not Available [facility] [address] [place] [address], [address], 06/22/2019 09:08:28 06/22/2006/22/2019 urina lysis , dipst ick, auto Unknown Analyte Negati ve Not Available [facility] [address] [place] [address], [address], 06/22/2019 09:08:28 06/22/2006/22/2019 urina lysis , dipst ick, auto Unknown Analyte Negtiv e Not Available [facility] [address] [place] [address], [address], 06/22/2019 09:08:28 06/22/2006/22/2019 urina lysis , dipst ick, auto Unknown Analyte Normal Not Available [facility] [address] [place] [address], [address], 06/22/2019 09:08:28 06/22/2006/22/2019 urina lysis , dipst ick, auto Unknown Analyte Negati ve Not Available [facility] [address] [place] [address], [address], 06/22/2019 09:08:28 06/22/2006/22/2019 urina lysis , dipst ick, auto Unknown Analyte Normal Not Available [facility] [address] [place] [address], [address], 06/22/2019 09:08:28 06/22/2006/22/2019 urina lysis , dipst ick, auto Unknown Analyte Negati ve Not Available [facility] [address] [place], [address], 06/22/2019 09:08:28 06/22/20 19 06/22/2019 urina lysis , dipst ick, auto Unknown Analyte 50 Issac/ul Not Available [facility] [address] [place] [address], [address], 06/22/2019 09:08:28 06/22/20 19 06/22/2019 urina lysis , dipst ick, auto Unknown Analyte Clean Catch Not Available [facility] [address] [place] [address], [address], 06/22/2019 09:08:28 06/22/20 19 06/22/2019 urina lysis , dipst ick, auto Unknown Analyte Automa ludin Not Available [facility] [address], [address], 06/22/2019 09:08:28 06/26/20 19 06/26/2019 creat inine , blood creatinine, fs mg/dL M 0.7-1. 3 F0.6-1 .1 Not Available [facility] [address] [place] [address], [address], 06/26/2019 09:15:52 07/07/20 19 07/07/2019 bun (bloo d urea nitro gen), serum or plasm a blood urea nitrogen 17 mg/dL 6-20 normal Not Available [facility] [address] [place] [address], [address], 07/07/2019 12:34:39 07/07/20 19 07/07/2019 creat inine , serum or plasm a creatinine 1.15 mg/dL 0.70-1 .25 normal Not Available [facility] [address] [place] [address], [address], 07/07/2019 12:34:40 07/19/20 07/19/2019 cytol ogy, non-g [...] 15:09 Page 1 of 1 Not Available [facility] [address] [place] [address], [address], 07/21/2019 15:10:54 07/19/20 19 07/19/2019 urina lysis , dipst ick, auto Unknown Analyte Yellow Not Available [facility] Surgery Schedule [address] [place] [address], [address], 07/19/2019 13:40:38 07/19/20 19 07/19/2019 urina lysis , dipst ick, auto Unknown Analyte Clear Not Available [facility] Surgery Schedule [address] [place], [address], 07/19/2019 13:40:38 07/19/2007/19/2019 urina lysis , dipst ick, auto Unknown Analyte 1.020 Not Available [facility] Surgery Schedule [address] [place], [address], 07/19/2019 13:40:38 07/19/20 19 07/19/2019 urina lysis , dipst ick, auto Unknown Analyte 5.0 Not Available [facility] Surgery Schedule [address] [place], [address], 07/19/2019 13:40:38 07/19/20 19 07/19/2019 urina lysis , dipst ick, auto Unknown Analyte Negati ve Not Available [facility] Surgery Schedule [address] [place], [address], 07/19/2019 13:40:38 07/19/20 19 07/19/2019 urina lysis , dipst ick, auto Unknown Analyte Negati ve Not Available [facility] Surgery Schedule [address] [place], [address], 07/19/2019 13:40:38 07/19/2007/19/2019 urina lysis , dipst ick, auto Unknown Analyte Negtiv e Not Available [facility] Surgery Schedule [address] [place], [address], 07/19/2019 13:40:38 07/19/2007/19/2019 urina lysis , dipst ick, auto Unknown Analyte Normal Not Available [facility] Surgery Schedule [address] [place], [address], 07/19/2019 13:40:38 07/19/2007/19/2019 urina lysis , dipst ick, auto Unknown Analyte Negati ve Not Available [facility] Surgery Schedule [address] [place] [address], [address], 07/19/2019 13:40:38 07/19/20 19 07/19/2019 urina lysis , dipst ick, auto Unknown Analyte Normal Not Available [facility] Surgery Schedule [facility] [place], [address], 07/19/2019 13:40:38 07/19/20 19 07/19/2019 urina lysis , dipst ick, auto Unknown Analyte Negati ve Not Available [facility] Surgery Schedule [address] [place] [address], [address], 07/19/2019 13:40:38 07/19/20 19 07/19/2019 urina lysis , dipst ick, auto Unknown Analyte 50 Issac/ul Not Available [facility] Surgery Schedule [address] [place], [address], 07/19/2019 13:40:38 07/19/20 19 07/19/2019 urina lysis , dipst ick, auto Unknown Analyte Clean Catch Not Available [facility] Schedule [address] [place], [address], 07/19/2019 13:40:38 07/19/20 19 07/19/2019 urina lysis , dipst ick, auto Unknown Analyte Automa ludin Not Available [facility] Schedule [address] [place], [address], 07/19/2019 13:40:38 06/25/2006/25/2020 urina lysis , dipst ick Unknown Analyte Straw Not Available [facility] [address] [place] [address], [address], 06/25/2020 08:58:13 06/25/2006/25/2020 urina lysis , dipst ick Unknown Analyte Clear Not Available [facility] [address] [place] [address], [address], 06/25/2020 08:58:13 06/25/2006/25/2020 urina lysis , dipst ick Unknown Analyte 1.030 Not Available [facility] [address] [place] [address], [address], 06/25/2020 08:58:13 06/25/2006/25/2020 urina lysis , dipst ick Unknown Analyte 1.003 - 1.035 Not Available [facility] [address] [place] [address], [address], 06/25/2020 08:58:13 06/25/2006/25/2020 urina lysis , dipst ick Unknown Analyte 5.0 Not Available [facility] [address] [place] [address], [address], 06/25/2020 08:58:13 06/25/202020 urina lysis , dipst ick Unknown Analyte 5.0 - 8.0 Not Available [facility] [address] [place] [address], [address], 06/25/2020 08:58:13 06/25/2006/25/2020 urina lysis , dipst ick Unknown Analyte Negati ve Not Available [facility] [address], [address], 06/25/2020 08:58:13 06/25/2006/25/2020 urina lysis , dipst ick Unknown Analyte Negati ve Not Available [facility] [address], [address], 06/25/2020 08:58:13 06/25/2006/25/2020 urina lysis , dipst ick Unknown Analyte Negati ve Not Available [address], [address], 06/25/2020 08:58:13 06/25/2006/25/2020 urina lysis , dipst ick Unknown Analyte Negati ve Not Available [address], [address], 06/25/2020 08:58:13 06/25/2006/25/2020 urina lysis , dipst ick Unknown Analyte Negati ve Not Available [facility] [address], [address], 06/25/2020 08:58:13 06/25/2006/25/2020 urina lysis , dipst ick Unknown Analyte Negati ve - Trace Not Available [address], [address], 06/25/2020 08:58:13 06/25/2006/25/2020 urina lysis , dipst ick Unknown Analyte Normal Not Available [facility] [address] [place], [address], 06/25/2020 08:58:13 06/25/2006/25/2020 urina lysis , dipst ick Unknown Analyte Normal Not Available [facility] [address] [place] [address], [address], 06/25/2020 08:58:13 06/25/2006/25/2020 urina lysis , dipst ick Unknown Analyte Negati ve Not Available [facility] [address] [place] [address], [address], 06/25/2020 08:58:13 06/25/2006/25/2020 urina lysis , dipst ick Unknown Analyte Negati ve Not Available [facility] [address] [place] [address], [address], 06/25/2020 08:58:13 06/25/2006/25/2020 urina lysis , dipst ick Unknown Analyte Normal Not Available [facility] [address] [place] [address], [address], 06/25/2020 08:58:13 06/25/2006/25/2020 urina lysis , dipst ick Unknown Analyte Normal - 1mg/dl Not Available [facility] [address] [place] [address], [address], 06/25/2020 08:58:13 06/25/2006/25/2020 urina lysis , dipst ick Unknown Analyte Negati ve Not Available [facility] [address] [place] [address], [address], 06/25/2020 08:58:13 06/25/2006/25/2020 urina lysis , dipst ick Unknown Analyte Negati ve Not Available [facility] [address] [place] [address], [address], 06/25/2020 08:58:13 06/25/20 20 06/25/2020 urina lysis , dipst ick Unknown Analyte Negati ve Not Available [facility] [address], [address], 06/25/2020 08:58:13 06/25/20 20 06/25/2020 urina lysis , dipst ick Unknown Analyte Negati ve Not Available [address], [address], 06/25/2020 08:58:13 06/25/20 20 06/25/2020 urina lysis , dipst ick Unknown Analyte Clean Catch Not Available [address], [address], 06/25/2020 08:58:13 06/25/20 20 06/25/2020 urina lysis , dipst ick Unknown Analyte Visual Not Available [facility] [address], [address], 06/25/2020 08:58:13 07/07/20 19 07/07/2019 CT, abdom en + pelvi s, w/wo contr ast [address] [address] Paticlarisa t Name: CARLITA Ken t : [birth year] 51 Paticlarisa t 4 Orderi [facility] er: LUIS ARMANDO GRANT OR EXAM DATE: 2018 EXAM: CT [facility] TECHNI QUE: Multip le axial CT images of the abdome n were obtain ed before and in the combin ed nephro graphi c and excret ory phases after a split bolus IV inject ion of Optira [id number] (1 x 100ml bottle [facility] [id number] [id number] ). Bowel was marked [...] Bonilla MD on 019 1:53 PM [email or web address] [facility] [address] [place] [address], [address], 07/10/2019 08:31:12 Result Notes Documentation Provider Name and Address Organization Details Recorded Time Ct, Abdomen + Pelvis, W/wo Contrast : [facility] [address] [place] [address] Patient Name: CARLITA BEARDEN Patient : 1955 Patient Ordering Provider: LUIS ARMANDO LEE EXAM DATE: 07/07/2019 EXAM: CT HEMATURIA PROTOCOL CLINICAL INFORMATION: Microhematuria. TECHNIQUE: Multiple axial CT images of the abdomen were obtained before and in the combined nephrographic and excretory phases after a split bolus IV injection of [id number] (1 x 100ml bottle [facility] [id number]). Bowel was marked with water. CT IVP images were created on a 3D workstation. COMPARISON: None. FINDINGS ON CT ABDOMEN: LOWER THORAX: Lung bases are clear. No obvious cardiac abnormality. URINARY TRACT: Both kidneys are normal in location, size, shape, outline and parenchymal thickness. No stones or calcifications are seen within the kidneys ureters or urinary bladder. Nephrographic phase shows normal parenchymal enhancement bilaterally without delay. No focal abnormality. Excretory phase shows adequate opacification of collecting systems and ureters without dilatation or filling defect. Urinary bladder is normal in outline and wall thickness without filling defect or mass. A diverticulum is seen arising from the left side of the urinary bladder. OTHER UPPER ABDOMINAL ORGANS: Gallbladder is surgically absent. Liver, spleen, pancreas, and adrenals are normal. BOWEL AND MESENTERY: Stomach, small bowel and colon are normal. No mesenteric lymphadenopathy or peritoneal free fluid. RETROPERITONEUM: Aorta shows atherosclerotic calcifications with normal aortic caliber. IVC and branches are patent and normal. No retroperitoneal lymphadenopathy. BODY WALL AND MUSCULOSKELETAL STRUCTURES: Degenerative changes of the lumbar spine are noted. There is a small umbilical hernia containing omental fat. FINDINGS ON CT PELVIS: PELVIC CAVITY: Urinary bladder and rectosigmoid are normal. Prostate is normal in size and shows some calcifications. Phleboliths are seen in the pelvis. No pelvic or inguinal lymphadenopathy, mass or fluid. MUSCULOSKELETAL STRUCTURES: Normal. COMBINED IMPRESSION: 1. No CT evidence of urinary tract stone or neoplasm. 2. Urinary bladder diverticulum. Interpreted By: Octavio Bonilla MD [facility] 08:31:12 Problems Name Problem SNOMED Code Status Onset Date Resolution Date Notes Provider Name and Address Organization Details Recorded Time Mixed conductiv e AND sensorine ural hearing loss 45101631 Active 2015 From Automated [employer];Prov ider: Dong Fournier;S tatus: Active Not Available [facility] 7 06:42:18 Lower urinary tract symptoms due to benign prostatic hypertrop hy 82422170726 101 Active 2014 From Automated Load;Prov ider: Luis Armando Lee;St atus: Active Not Available [facility] 6 07:50:29 Prostate specific antigen above reference range 481772744 Active 2014 From Automated Load;Prov ider: Luis Armando Lee;St atus: Active Not Available [facility] 6 07:50:29 Microscop ic hematuria 980871657 Active 2014 From Automated Load;Prov ider: Luis Armando Lee;St atus: Active Not Available [facility] 6 07:50:29 Acute non-suppu rative serous otitis media 492920333 Active 2015 From Automated Load;Prov ider: Dong Fournier;S tatus: Active Not Available [facility] 6 07:50:29 Conductiv e hearing loss 88422447 Active 2015 From Automated Load;Prov ider: Dong Fournier;S tatus: Active Not Available [facility] 6 07:50:29 Problem Notes None recorded. Procedures Surgical History Date Name Laterality Status Provider Name and Address Organization Details Recorded Time 0 Post Void Residual; Ultrasound completed Gunjan Kapadia [facility] 06/25/2020 09:08:12 9 Cystoscopy - male completed LUIS ARMANDO LEE MD [address] [place] [address], [phone], [facility] 07/19/2019 14:20:36 9 Post Void Residual; Ultrasound completed [facility] 06/22/2019 09:08:21 8 Post Void Residual; Ultrasound completed Xiomara Garibay [facility] 06/21/2018 09:08:03 8 Post Void Residual; Ultrasound completed Jacquie Kiser [facility] 03/17/2018 09:08:30 8 Uroflowmetry; Complex completed [facility] 02/28/2018 09:30:39 8 Cystoscopy - male completed LUIS ARMANDO LEE MD [address] [place], [address], [facility] 02/21/2018 08:28:57 8 Post Void Residual; Ultrasound completed Lily Deans [facility] 02/01/2018 09:42:56 7 Post Void Residual; Ultrasound completed [facility] 08/03/2017 09:02:42 7 EXTRA CORPOREAL SHOCK WAVE LITHOTRIPSY (SURG) completed LUIS ARMANDO LEE MD [address] [place], [address], [facility] 03/22/2017 12:37:31 7 Post Void Residual; Ultrasound completed Bhargavi [facility] 01/25/2017 11:08:55 6 Post Void Residual; Catheter completed Bhargavi [facility] 10/15/2016 08:35:18 6 Audiogram completed RODRIGO ARRIOLA [address] [place], [address], [facility] 10/07/2016 10:20:39 Imaging Results None recorded. Procedure Notes None recorded. Medical Equipment None Reported. Allergies Allergen ID Allergen Name Allergen Category Reaction Reaction Severity Criticality Documentation Date Start Date Code Code System Note Provider Name and Address Organization Details Recorded Time 892940 Substance with sulfonami de structure and antibacte rial mechanism of action (substanc e) medicatio n Not available Not available Not available 09/11/20162010 62999 8003 SNOMED Comme nt: Creat ed By: Ailyn reynaCre ated Date: 2010 1:02: 38 PM; Not Available [facility] 6 02:54:27 Medications Name Sig Start [...] Shingrix (PF) 50 mcg/0.5 mL intramusc ular suspwisam n, kit 06/25 completed Not Available Not Available Not Available Vitals Date Recorded Body height Body mass index (BMI) Body weight Provider Name and Address Organization Details Last Updated DateTime 03/17/2018 180.34 cm 27.2 kg/m2 76291.51 g Jacquie Kiser [facility] 03/17/2018 09:02:58 Date Recorded Body height Body mass index (BMI) Body weight Provider Name and Address Organization Details Last Updated DateTime 06/21/2018 180.34 cm 27.2 kg/m2 33789.51 g Xiomara Tianham [facility] 06/21/2018 09:04:49 Date Recorded Body height Body mass index (BMI) Body weight Body temperature Provider Name and Address Organization Details Last Updated DateTime 06/22/2019 180.34 cm 27.2 kg/m2 67433.51 g 98 [degF] Tahmina Fragoso [facility] 06/22/2019 09:05:56 Date Recorded Body weight Body mass index (BMI) Body height Provider Name and Address Organization Details Last Updated DateTime 06/25/2020 62833.51 g 27.2 kg/m2 180.34 cm Gunjan Kang [facility] 06/25/2020 08:56:38 Social History Question Answer Notes LastModified by Organizat ion Details LastModified Time Tobacco Smoking Status Never Smoker Karen bourne [facility] 10/07/2016 09:19:00 How Much Tobacco Do You Chew? None [email or web address] Information not available 06/25/2020 What Was The Date Of Your Most Recent Tobacco Screening? 06/21/2018 Information n ot available 12/05/2019 How Much Tobacco Do You Smoke? No [email or web address] Information not available 06/25/2020 How Many Years Have You Smoked Tobacco? 0 [email or web address] Information not available 06/25/2020 Sex: Unknown Functional Status Question Answer Note LastModified by Organizat ion Details LastModified Time What is your level of alcohol consumption? Occasional Information not available 06/25/2020 Do you or have you ever used smokeless tobacco? Never used smokeless tobacco [email or web address] Information not available 06/25/2020 Do you or have you ever used e-cigarettes or vape? Never used electronic cigarettes [email or web address] Information not available 06/25/2020 Mental Status None recorded. Family History Nothing Reported. Medical History Condition Response Hypertension Y High Cholesterol Y Past Encounters Encounter ID Performer Location Encounter Start Date Encounter Closed Date Diagnosis/Indication Diagnosis SNOMED-CT Code Diagnosis ICD10 Code Diagnosis Note [id number] DONG FOURNIER MD ENT [facility] [address] [place] [address] 1 10/07/2016 08:57:35 10/07/2016 12:06:38 Chronic serous otitis media 16196070 H65.[address] and patent. Hearing improved.a udiogram reviewed Acute sinusitis 77298494 J01.90 [id number] DONG FOURNIER MD ENT [facility] [address] [place] [address] 1 10/07/2016 09:54:51 10/07/2016 10:21:42 Sensorineural hearing loss of bilateral ears 099416832 H90.3 [id number] LUIS ARMANDO LEE MD UROLOGY [facility] [address] [place] [address] 1 10/15/2016 07:35:58 10/15/2016 09:12:15 Lower urinary tract symptoms due to benign prostatic hypertrophy 1692131362 9101 N40.1 Benign pro static hyperplasia 291582037 N40.1 Microscopic hematuria 19 1405790 R31.21 Incomplete emptying of urinary bladder 035256410 R39.14 [id number] LUIS ARMANDO LEE MD UROLOGY [address] [place] [address] 1 01/25/2017 10:48:50 01/25/2017 12:53:18 Benign prostatic hyperplasia with outflow obstruction 986723912 N40.1 Microscopic hematuria 19 5103908 R31.21 [id number] DONG FOURNIER MD ENT [facility] [address] [place] [address] 1 01/25/2017 10:48:50 01/25/2017 12:53:18 Chronic serous otitis media 74693685 H65.[address] and patent. f/u 6 mo [id number] LUIS ARMANDO LEE MD UROLOGY [address] [place] [address] 1 03/08/2017 07:58:58 03/08/2017 09:23:26 Ureteric stone 70249897 N20.1 [id number] LUIS ARMANDO LEE MD UROLOGY [address] [place] [address] 1 04/01/2017 09:27:16 04/01/2017 10:33:05 Kidney stone 23071006 N20.0 [id number] ULIS ARMANDO LEE MD UROLOGY [address] [place] [address] 1 08/03/2017 08:41:11 08/03/2017 09:54:35 Benign prostatic hyperplasia with outflow obstruction 982418502 N40.1 Incomplete emptying of urinary bladder 042834295 R39.14 History of calculus of kidney 348790267 Z87.537 [id number] DONG FOURNIER MD ENT SB [address] [place] [address] 1 08/11/2017 09:03:32 08/11/2017 09:36:45 Chronic serous otitis media 92515090 H65.23 both tubes extruded and tm's look fine. No fluid present. F/U prn [id number] LUIS ARMANDO LEE MD UROLOGY [address] [place] [address] 1 02/01/2018 09:03:07 02/01/2018 10:09:37 Benign prostatic hyperplasia with outflow obstruction 429258648 N40.1 Incomplete emptying of urinary bladder 698391654 R39.14 [id number] LUIS ARMANDO LEE MD SURGERY SCHEDULE [address] [place] [address] 1 02/21/2018 06:32:25 02/21/2018 06:32:56 [id number] LUIS ARMANDO LEE MD UROLOGY [address] [place] [address] 1 02/28/2018 09:08:03 03/01/2018 15:54:44 Lower urinary tract symptoms due to benign prostatic hypertrophy 3266802139 9101 N40.1 [id number] LUIS ARMANDO LEE MD UROLOGY [address] [place] [address] 1 03/17/2018 08:50:49 03/17/2018 09:35:44 Acute urinary tract infection 874656447 N39.0 Benign pro static hyperplasia with outflow obstruction 246825744 N40.1 Incomplete emptying of urinary bladder 228026905 R39.14 [id number] LUIS ARMANDO LEE MD UROLOGY [address] [place] [address] 1 06/21/2018 08:55:40 06/21/2018 09:57:45 Benign prostatic hyperplasia with outflow obstruction 466986393 N40.1 [id number] LUIS ARMANDO LEE MD UROLOGY [address] [place] [address] 1 06/22/2019 08:39:54 06/22/2019 09:24:17 Benign prostatic hyperplasia with outflow obstruction 691683933 N40.1 Blood in urine 43364556 R31.9 [id number] LUIS ARMANDO LEE MD SURGERY SCHEDULE [address] [place] [address] 1 07/19/2019 12:34:50 07/19/2019 12:36:34 [id number] LUIS ARMANDO LEE MD UROLOGY [address] [place] [address] 1 06/25/2020 08:51:24 06/25/2020 10:03:45 Benign prostatic hyperplasia with outflow obstruction 864247341 N40.1 Microscopic hematuria 19 0222259 R31.21 Health Concerns Section Related Observation LastModified by Organization Detai ls LastModified Time None Recorded Concern Status LastModified by Organization Details LastModified Time None Recorded Advance Directives Directive None Recorded Payers Insurance Date Sequence Insurance Name Policy Number Policy Arambula Covered Member ID Arambula Member ID Guarantor Name 06/21/2018 2 [facility] (MEDICARE REPLACEMENT/A DVANTAGE - PPO) [id number] Carlita Bearden [id number] Carlita Bearden 06/22/2020 2 [place] Carlita Bearden [id number] Carlita Bearden 06/25/2020 1 [place] [id number] Carlita Bearden II [id number] Carlita Bearden 04/22/2018 2 [place] Carlita Bearden [id number] Carlita Bearden Notes Date Note Type Note [...] frequency or dysuria. LUIS ARMANDO LEE MD [address] [place] [address], [phone], [facility] 03/17/2018 09:22:08 06/21/2018 text/html Mr. Bearden returns today for follow-up of BPH with severe incomplete bladder emptying. He underwent greenlight laser vaporization of the prostate in February. His preoperative residuals were over 500 mL. Overall he is very pleased. He has occasional mild postvoid dribbling. No dysuria or hematuria. LUIS ARMANDO LEE MD [address] [place] [address], [phone], [facility] 06/21/2018 09:16:40 06/22/2019 text/html Mr. Bearden returns [...] hematuria. No dysuria. LUIS ARMANDO LEE MD [address] [place] [address], [phone], [facility] 06/22/2019 09:22:52 06/25/2020 text/html Mr. Bearden returns [...] a year ago. LUIS ARMANDO LEE MD [address] [place] [address], [phone], [facility] 06/25/2020 09:21:17
--- OUTSIDE RECORDS SUMMARY | 2025-04-03 13:12 | XMS_ITS | Clinical Summary ---
Author Organization Healthcare Address [address] [place] [address] Care Team Providers Care Java J2Ee Software Engineer Name Role Phone Cristopher Gray MD Primary Care Provider [phone] Latanya Becker Unavailable [phone] Saima Esparza MD Unavailable [phone] Allergies Active Allergy Reactions Criticality Noted [...] Description 03/20/2025 1:00 PM EDT Office Visit [place] [facility] [address], [address] [place] [address] Latanya Becker, PA Normal pressure hydrocephalus (CMS/HCC) (Primary Dx) 03/20/2025 9:43 AM EDT - 03/20/2025 11:59 PM EDT Hospital Encounter [facility] [address] [place] [address] Cecy Alston, RN Cardiomyopathy; Chronic obstructive pulmonary disease, unspecified (CMS/HCC); Essential hypertension; Dyspnea on exertion; HFrEF (heart failure with reduced ejection fraction) (CMS/HCC) Discharge Disposition: Home or Self Care 03/20/2025 Travel 03/19/2025 Travel 03/19/2025 Telephone [facility] [address] [place] [address] Mary Nagy RN 01/25/2025 Telephone [place] [facility] [address], [address] [place] [address] Latanya Becker PA HCN - [...] Visit [place] [facility] [address], [address] [place] [address] Latanya Becker PA [address] [place] [address] Health Maintenance Due Date Last Done Comments [facility]-Hepatitis C Screening 1955 [facility]-Medicare Annual Wellness (AWV) 1955 [facility]-Infant/Child/Adol SDOH Screenings 1955 [facility]- SDOH Screenings 1971 [facility]-Adult SDOH Screenings 1971 [facility]-DTaP,Tdap,and Td Vaccines (1 - Tdap) 01/25/1972 CT Colonography 1998 Colonoscopy 1998 FIT-DNA 1998 FIT 1998 FOBT 1998 Sigmoidoscopy 1998 [facility]-Colorectal Cancer Screening 1998 [facility]-Zoster Vaccines (2 of 2) 12/02/2018 10/07/2018 [facility]-KVNLY-12 Vaccine ( season) 2024 08/20/2021, 03/24/2021, 03/02/2021 [...] this topic Medical Devices Implanted Type Area Veterinary Inspector Device Identifier Shelf Expiration Date Model / Serial / Lot Certas Plus Inline Siphon - [id number] Implanted:Qty: 1 on 12/24/2022 by Jerrell Jarrett MD at [facility] [employer]-[id number] 08/17/2027 [id number] / / [id number] Catheter Antibiotic Str Vent - [id number] Implanted:Qty: 1 on 12/24/2022 by Jerrell Jarrett MD at [facility] [employer]-[id number] 09/16/2023 [id number] / / [id number] Procedures Procedure Name Priority Date/Time Associated Diagnosis [...] left ventricular myocardial late gadolinium enhancement. Normal standing rock T1 mapping and ECV is not suggestive [...] --- Tissue Characterization --- T1 Mapping: Myocardial standing rock T1: 1053ms Blood pool standing rock T1: 1581ms Myocardial post contrast T1: 462ms [...] --- Tissue Characterization --- T1 Mapping: Myocardial standing rock T1: 1053ms Blood pool standing rock T1: 1581ms Myocardial post contrast T1: 462ms [...] of left ventricular myocardiallate gadolinium enhancement. Normal standing rock T1 mapping and ECV is notsuggestive of [...] LAB HEMATOLOGY METHOD 03/20/2025 12:12 PM EDT [facility] Blood Venous blood specimen / Unknown Venipuncture / Unknown 03/20/2025 11:46 AM EDT 03/20/2025 12:02 PM EDT us Katherine Lewis MD LAB BLOOD ORDERABLES Final Resu lt [facility] [address] [place] [address] from Last 3 Months Insurance [employer] MEDICARE Advance Directives * Full Code (Latest Code Status on File) Date Activated Date Inactivated Comments 12/24/2022 9:13 AM 12/25/2022 6:51 PM Question Answer Comments Patient has decision-making capacity? Yes Care Teams Java J2Ee Software Engineer Relationship Specialty Start Date End Date Cristopher Gray MD [address] [place] [address] PCP - General 12/14/22 Latanya Becker PA [address] [phone] Physician Biology Department Chair Neurosurgery 05/03/23 Saima Esparza MD [address] [place], [place] [address] Referring Physician 05/03/23
--- OUTSIDE RECORDS SUMMARY | 2025-04-03 13:12 | XMS_ITS ---
Author Organization Unknown Medications Medication Instructions Effective Dates (start - stop) Status chlorhexidine gluconate 1.2 MG/ML Mouthwash 8109-53-60P01:00:00.000+00:0 0 - Completed levothyroxine sodium 0.112 M G Oral Tablet 7217-38-89F78:00:00.000+00:0 0 - Completed doxycycline hyclate 100 MG O ral Capsule 9882-28-11B14:00:00.000+00:0 0 - Completed levothyroxine sodium 0.112 M G Oral Tablet 3150-69-36W58:00:00.000+00:0 0 - Completed cephalexin 500 MG Oral Capsule 413-24-89S17:00:00.000+00:0 0 - Completed levothyroxine sodium 0.112 M G Oral Tablet 1330-70-20S62:00:00.000+00:0 0 - Completed levothyroxine sodium 0.112 M G Oral Tablet 8995-98-92Q21:00:00.000+00:0 0 - Completed ondansetron 8 MG Oral Tablet 11-28-29:00:00.000+00:0 0 - Completed cefdinir 300 MG Oral Capsule 11-27-27:00:00.000+00:0 0 - Completed valsartan 160 MG Oral Tablet 12-17-05:00:00.000+00:0 0 - Completed amoxicillin 500 MG Oral Capsule 3270-41-01C11:00:00.000+00:0 0 - Completed finasteride 5 MG Oral Tablet 12-19-04:00:00.000+00:0 0 - Completed gabapentin 300 MG Oral Capsule 2 495-29-71R45:00:00.000+00:0 0 - Completed gabapentin 300 MG Oral Capsule 700-94-90J25:00:00.000+00:0 0 - Completed mupirocin 0.02 MG/MG Topical Ointment 9324-55-94V77:00:00.000+00:0 0 - Completed gabapentin 300 MG Oral Capsule 181-81-43N53:00:00.000+00:0 0 - Completed finasteride 5 MG Oral [...] rosuvastatin calcium 10 MG O ral Tablet 3349-71-08C57:00:00.000+00:0 0 - Completed sertraline 50 MG Oral Tablet 11-28-07:00:00.000+00:0 0 - Completed rosuvastatin calcium 10 MG O ral Tablet 5396-46-07I75:00:00.000+00:0 0 - Completed rosuvastatin calcium 10 MG O ral Tablet 6275-29-97H28:00:00.000+00:0 0 - Completed montelukast 10 MG Oral Tablet 09-07-26:00:00.000+00:0 0 - Completed gabapentin 300 MG Oral Capsule 329-96-13W86:00:00.000+00:0 0 - Completed gabapentin 300 MG Oral Capsule 428-90-92U94:00:00.000+00:0 0 - Completed cephalexin 500 MG Oral Capsule 844-94-23H17:00:00.000+00:0 0 - Completed montelukast 10 MG Oral Tablet 08-06-06:00:00.000+00:0 0 - Completed rosuvastatin calcium 10 MG O ral Tablet 2652-33-26R51:00:00.000+00:0 0 - Completed azithromycin 500 MG Oral Tablet 5947-09-40J67:00:00.000+00:0 0 - Completed ondansetron 4 MG Disintegrat ing Oral Tablet 9111-85-29P24:00:00.000+00:0 0 - Completed tamsulosin hydrochloride 0.4 MG Oral Capsule 0111-66-23C92:00:00.000+00:0 0 - Completed nitrofurantoin, macrocrystal s 50 MG Oral Capsule 2283-22-71P23:00:00.000+00:0 0 - Completed valsartan 160 MG Oral Tablet 11-28-07:00:00.000+00:0 0 - Completed trazodone hydrochloride 50 M G Oral Tablet 3891-44-49K90:00:00.000+00:0 0 - Completed nitrofurantoin, macrocrystal s 50 MG Oral Capsule 8279-11-82G46:00:00.000+00:0 0 - Completed tamsulosin hydrochloride 0.4 MG Oral Capsule 1206-30-79U63:00:00.000+00:0 0 - Completed nitrofurantoin, macrocrystal s 50 MG Oral Capsule 5862-92-95M22:00:00.000+00:0 0 - Completed sertraline 50 MG Oral Tablet 11-25-07:00:00.000+00:0 0 - Completed 24 HR diltiazem hydrochlorid e 240 MG Extended Release Oral Capsule 9715-18-68Q29:00:00.0 00+00:0 0 - Completed 24 HR diltiazem hydrochlorid e 240 MG Extended Release Oral Capsule 1989-20-02S94:00:00.0 00+00:0 0 - Completed tamsulosin hydrochloride 0.4 MG Oral Capsule 3170-54-28E95:00:00.000+00:0 0 - Completed 24 HR diltiazem hydrochlorid e 240 MG Extended Release Oral Capsule 0223-47-20V06:00:00.0 00+00:0 0 - Completed trazodone hydrochloride 50 M G Oral Tablet 3727-24-09M63:00:00.000+00:0 0 - Completed 24 HR diltiazem hydrochlorid e 240 MG Extended Release Oral Capsule 6408-95-01Q39:00:00.0 00+00:0 0 - Completed tamsulosin hydrochloride 0.4 MG Oral Capsule 3453-33-69Z55:00:00.000+00:0 0 - Completed valsartan 160 MG Oral Tablet 12-20-04:00:00.000+00:0 0 - Completed levofloxacin 500 MG Oral Tablet 0256-80-90O79:00:00.000+00:0 0 - Completed nitrofurantoin, macrocrystal s 50 MG Oral Capsule 1058-82-09G79:00:00.000+00:0 0 - Completed trazodone hydrochloride 50 M G Oral Tablet 2119-68-78U54:00:00.000+00:0 0 - Completed valsartan 160 MG Oral Tablet 11-25-07:00:00.000+00:0 0 - Completed 60 ACTUAT fluticasone propio madina 0.5 MG/ACTUAT / salmeterol 0.05 MG/ACTUAT Dry Powder Inhaler [Advair] 3751-23-89Q21:00:00.000+00:0 0 - Completed 30 ACTUAT fluticasone furoat e 0.2 MG/ACTUAT / vilanterol 0.025 MG/ACTUAT Dry Powder Inhaler [Breo] 5735-88-68Z92:00:00.000+00:0 0 - Completed 30 ACTUAT fluticasone furoat e 0.2 MG/ACTUAT / vilanterol 0.025 MG/ACTUAT Dry Powder Inhaler [Breo] 2659-88-17H64:00:00.000+00:0 0 - Completed acetaminophen 325 MG / hydro codone bitartrate 5 MG Oral Tablet 6943-08-99X66:00:00.000+00 :0 0 - Completed 30 ACTUAT fluticasone furoat e 0.2 MG/ACTUAT / vilanterol 0.025 MG/ACTUAT Dry Powder Inhaler [Breo] 9388-78-63B92:00:00.000+00:0 0 - Completed 60 ACTUAT fluticasone propio madina 0.5 MG/ACTUAT / salmeterol 0.05 MG/ACTUAT Dry Powder Inhaler [Advair] 1139-38-59P82:00:00.000+00:0 0 - Completed 60 ACTUAT fluticasone propio madina 0.5 MG/ACTUAT / salmeterol 0.05 MG/ACTUAT Dry Powder Inhaler [Advair] 1785-98-08C74:00:00.000+00:0 0 - Completed 30 ACTUAT fluticasone furoat e 0.2 MG/ACTUAT / vilanterol 0.025 MG/ACTUAT Dry Powder Inhaler [Breo] 1399-97-83O94:00:00.000+00:0 0 - Completed amoxicillin 875 MG / clavula madina 125 MG Oral Tablet 8215-13-96W96:00:00.000+00:0 0 - Completed 60 ACTUAT fluticasone propio madina 0.5 MG/ACTUAT / salmeterol 0.05 MG/ACTUAT Dry Powder Inhaler [Advair] 3858-63-32M00:00:00.000+00:0 0 - Completed 30 ACTUAT fluticasone furoat e 0.2 MG/ACTUAT / vilanterol 0.025 MG/ACTUAT Dry Powder Inhaler [Breo] 0134-87-35Z81:00:00.000+00:0 0 - Completed 60 ACTUAT fluticasone propio madina 0.5 MG/ACTUAT / salmeterol 0.05 MG/ACTUAT Dry Powder Inhaler [Advair] 6272-99-73H45:00:00.000+00:0 0 - Completed Patient Care team information Name Category Status Period Participants - - Proposed period not known -
[2025-04-03] MEDS: DEFINITY US ECHO CONTRAST 2ML INJ 2 MG IV (14:26)
== END 2025-04-03 23:59 | disposition home or self-care (01) ==
LOC: RT 13:07
PROVIDERS: PCP Internal Medicine; Visit Provider Physician Assistant
DX: I11.9 Hypertensive heart disease without heart failure (principal); I42.8 Other cardiomyopathies
CPT/HCPCS: 93306; Q9957

== ENCOUNTER 2025-04-10 07:58 | Day surgery (SDC) | payer BC, MEDICARE, SELFPAY ==
[2025-04-10 08:15] VITALS: BP 97/52; PULSE 64; RESP 18; O2SAT 99; BMI 27.8
--- NOTE | 2025-04-10 08:23 | P.PCN_ITS ---
Procedure Date: 04/10/25 Time: 08:15 Anesthesiologist:: Ren Pierre CRNA Complications:: None Pre-procedure Diagnosis:: Left trochanteric bursitis Post-procedure Diagnosis:: Same Indications for Procedure:: Patient is a very pleasant 70-year-old male who comes our clinic today for a left trochanteric bursa injection of cortisone local anesthetic. Patient describes left lateral hip pain as constant, dull, aching. Upon examination he has extreme point tenderness over the left trochanteric bursa area. He rates his pain 7/10. Procedure Details:: Procedure:Left trochanteric bursa injection under fluoroscopy We then moved to the left trochanteric bursa.~ C-arm fluoroscopy was used to view the left greater trochanter.~ The skin and subcutaneous tissues overlying the left greater trochanter were anesthetized using lidocaine, 1.5% and a 25- gauge needle.~ After this, a 22-gauge spinal needle was inserted and advanced until it contacted the left greater trochanter.~ Dye was injected and good spread was seen throughout the left trochanteric bursa. After this, approximately 5 mL of bupivacaine, 0.25% and Depo-Medrol, 40 mg was incrementally injected into the left trochanteric bursa.~ The patient tolerated the procedure well with no complications. Plan and Disposition:: Patient was discharged without incident.
[2025-04-10 08:25] VITALS: BP 107/60; PULSE 70; RESP 18; O2SAT 98
[2025-04-10] MEDS: DEXAMETHASONE 10MG/ML 1ML VIAL 10 MG (08:25)
[2025-04-10] MEDS: LIDOCAINE 1% 5ML PF VIAL 5 ML (08:25)
[2025-04-10] MEDS: BUPIVACAINE 0.25% 10ML INJ 25 MG IJ (08:25)
[2025-04-10 08:27] VITALS: BP 107/60; PULSE 70; RESP 18; O2SAT 98
[2025-04-10 08:30] VITALS: BP 110/60; PULSE 72; RESP 18; O2SAT 97
== END 2025-04-10 08:30 | disposition home or self-care (01) ==
PROVIDERS: PCP Internal Medicine; Visit Provider Nurse Anesthetist, Certified Registered
DX: M70.62 Trochanteric bursitis, left hip (principal); J44.9 Chronic obstructive pulmonary disease, unspecified; J84.9 Interstitial pulmonary disease, unspecified; Z88.2 Allergy status to sulfonamides; Z79.82 Long term (current) use of aspirin; Z79.890 Hormone replacement therapy; Z79.899 Other long term (current) drug therapy
CPT/HCPCS: 20610; 77002; J0665; J1100; J2003

== ENCOUNTER 2025-04-25 09:59 | Outpatient (POV) | payer BC, MEDICARE, SELFPAY ==
--- OUTSIDE RECORDS SUMMARY | 2025-03-20 09:43 | XMS_ITS | Encounter Summary ---
Author Organization Healthcare Address [address] [place] [address] Care Team Providers Care Floor Scraper Name Role Phone Cristopher Gray MD Primary Care Provider [phone] Latanya Becker Unavailable [phone] Saima Esparza MD Unavailable [phone] Reason for Referral * Imaging (Routine) - Closed Specialty Diagnoses / Procedures Referred By Bharat t Referred To Contact Radiology Diagnoses Cardiomyopathy Chronic obstructive pulmonary disease, unspecified (CMS/HCC) Essential hypertension Dyspnea on exertion HFrEF (heart failure with reduced ejection fraction) (CMS/HCC) Procedures MR Cardiac Morphology and Function W Velocity Flow Mapping W and WO Contrast Bala Smith PA [address] [place] [address] [facility] [place] [address] Phone: tel: fax: Referral ID Status Reason Start Date Expiration Date Visits Re quested Visits Authorized [id number] Closed 02/13/2025 08/15/2026 1 1 Reason for Visit * Imaging (Routine) - Closed Specialty Diagnoses / Procedures Referred By Bharat esquivel Referred To Contact Radiology Diagnoses Cardiomyopathy Chronic obstructive pulmonary disease, unspecified (CMS/HCC) Essential hypertension Dyspnea on exertion HFrEF (heart failure with reduced ejection fraction) (CMS/HCC) Procedures MR Cardiac Morphology and Function W Velocity Flow Mapping W and WO Contrast Bala Smith PA [address] [place] [address] [facility] [place] [address] Phone: tel: fax: Referral ID Status Reason Start Date Expiration Date Visits Re quested Visits Authorized [id number] Closed 02/13/2025 08/15/2026 1 1 Encounter Details Date Type Department Care Team (Souleymane stephens Contact Info) Description 03/20/2025 9:43 AM EDT - 03/20/2025 11:59 PM EDT Hospital Encounter [facility] [address] [place] [address] Cecy Alston RN [facility] Cardiomyopathy; Chronic obstructive pulmonary disease, unspecified (CMS/HCC); Essential hypertension; Dyspnea on exertion; HFrEF (heart failure with reduced ejection fraction) (CMS/HCC) Discharge Disposition: Home or Self Care Social History Tobacco Use Types Packs/Day Years Used Date Smoking Tobacco: Never Smokeless Tobacco: Never Alcohol Use Standard Drinks/Week Comments No 0 (1 standard drink = 0.6 oz pur e alcohol) PHQ-2 Answer Date Recorded Patient Health Questionnaire-2 Score 0 10/05/2024 PHQ-9 Answer Date Recorded Patient Health Questionnaire-9 Score 0 10/05/2024 Sex and Gender Information Value Date Recorded Sex Assigned at Not on file Legal Sex Male 7:46 PM EDT Gender Identity Not on file Sexual Orientation Not on file documented as of this encounter Last Filed Vital Signs Vital Sign Reading Time Taken Comments Blood Pressure 128/72 03/20/2025 12:45 PM EDT Pulse 66 03/20/2025 12:45 PM EDT Temperature - - Respiratory Rate - - Oxygen Saturation 98% 03/20/2025 12:45 PM EDT Inhaled Oxygen Concentration - - Weight - - Height - - Body Mass Index - - documented in this encounter Medications at Time of Discharge Advair Diskus 500-50 MCG/ACT diskus inhaler Inhale 1 puff 2 (two) times a day. 11/23/2022 albuterol 108 (90 Base) MCG/ACT inhaler INHALE TWO PUFFS BY MOUTH EVERY 6 HOURS NEEDED 12/24/2023 amantadine (Symmetrel) 100 MG tablet 02/14/2025 aspirin 81 MG EC tablet Take 1 tablet (81 mg total) by mouth 1 (one) time each day. Hold your dose for 2 weeks or until your neurosurgeon tells you it is okay to restart. 12/25/2022 Azelastine HCl 137 MCG/SPRAY solution SPRAY 1 SPRAY INTO EACH NOSTRIL TWICE A DAY NEEDED FOR ALLERGIES 07/06/2023 celecoxib (CeleBREX) 100 MG capsule Take 1 capsule by mouth 2 times a day. 11/17/2024 cephalexin (Keflex) 250 MG capsule Take by mouth daily. 03/08/2025 ciprofloxacin (Cipro) 500 MG tablet Take by mouth 2 (two) times a day. dilTIAZem CD (Cardizem CD) 240 MG 24 hr capsule Take 1 capsule (240 mg) by mouth 1 (one) time each day in the morning. 10/14/2022 Entresto 24-26 MG tablet Take 1 tablet by mouth 2 times a day. 02/21/2025 famotidine (Pepcid) 20 MG tablet 10/03/2024 fenofibrate (Triglide) 160 MG tablet fexofenadine (Keena) 180 MG tablet Take 1 tablet (180 mg) by mouth 1 (one) time each day in the morning. 11/03/2022 finasteride (Proscar) 5 MG tablet Take 1 tablet (5 mg) by mouth 1 (one) time each day in the morning. 04/10/2016 fluticasone (Flonase Allergy Relief) 50 MCG/ACT nasal spray Two times a day furosemide (Lasix) 40 MG tablet TAKE ONE TABLET BY MOUTH EVERY DAY NEEDED FOR EDEMA 02/21/2025 gabapentin (Neurontin) 400 MG capsule 03/19/2025 Jardiance 10 MG Take 1 tablet by mouth daily. 02/21/2025 levothyroxine (Synthroid, Levoxyl) 112 MCG tablet Take 1 tablet (112 mcg) by mouth 1 (one) time each day before breakfast. 04/10/2016 metoprolol succinate XL (Toprol-XL) 25 MG 24 hr tablet Take 1 tablet by mouth daily. 02/21/2025 montelukast (Singulair) 10 MG tablet Take 1 tablet (10 mg) by mouth every night. 10/20/2022 mupirocin (Bactroban) 2 % ointment 01/15/2023 naproxen (Naprosyn) 500 MG tablet 10/03/2024 nitrofurantoin (Macrodantin) 50 MG capsule Take 1 capsule (50 mg) by mouth 1 (one) time each day in the morning. 04/10/2016 pantoprazole (Protonix) 40 MG EC tablet take one tablet by mouth every day on an empty stomach 02/21/2025 rosuvastatin (Crestor) 10 MG tablet Take 1 tablet (10 mg) by mouth 1 (one) time each day in the evening. 04/10/2016 sertraline (Zoloft) 50 MG tablet Take 1 tablet (50 mg) by mouth 1 (one) time each day in the morning. 04/10/2016 spironolactone (Aldactone) 25 MG tablet Take 1 tablet by mouth daily. 02/21/2025 tamsulosin (Flomax) 0.4 MG 24 hr capsule Take 1 capsule (0.4 mg) by mouth every night. 04/10/2016 traZODone (Desyrel) 50 MG tablet Take 1 tablet (50 mg) by mouth every night. triamcinolone (Nasacort) 55 MCG/ACT nasal inhaler SPRAY 1-2 SPRAY INTO BOTH NOSTRILS ONCE A DAY 11/20/2022 valsartan (Diovan) 160 MG tablet Take 1 tablet (160 mg) by mouth 1 (one) time each day in the morning. 04/10/2016 Xarelto 20 MG tablet TAKE ONE TABLET BY MOUTH EVERY EVENING with meal 02/26/2025 documented as of this encounter Plan of Treatment Upcoming Encounters Date Type Department Care Team (Late st Contact Info) Description 10/08/2025 9:00 AM EST Office Visit [place] [facility] [address], [address] [place] [address] Latanya Becker PA [address] [place] [address] documented as of this encounter Procedures Procedure Name Priority Date/Time Associated Diagnosis Comments MR CARDIAC MORPHOLOGY AND FUNCTION W LATOYA FLOW MAPPING W AND WO CONTRAST Routine 03/20/2025 12:45 PM EDT Cardiomyopathy Chronic obstructive pulmonary disease, unspecified (CMS/HCC) Essential hypertension Dyspnea on exertion HFrEF (heart failure with reduced ejection fraction) (CMS/HCC) HEMATOCRIT, BLOOD STAT 03/20/2025 11: 46 AM EDT documented in this encounter Results * MR Cardiac Morphology and Function W Velocity Flow Mapping W and WO Contrast (03/20/2025 12:45 PM EDT) Anatomical Region Laterality Modality Heart Magnetic Resonan ce Impressions 03/20/2025 3:43 PM EDT 1. Normal sized left ventricle with mildly reduced global systolic function (LVEF 50%). There is no evidence of left ventricular myocardial late gadolinium enhancement. Normal [place] T1 mapping and ECV is not suggestive of infiltrative cardiomyopathy. 2. Normal sized right ventricle with normal global systolic function (RVEF 52%). 3. No significant valvular abnormalities. 4. No evidence of intra-cardiac shunt. Critical Result: No. COMMUNICATION: Per this written report. By electronically signing this report, I, the attending physician, attest that I have personally reviewed the images/data for the above examination(s) and agree with the final edited report. Drafted by Katherine Lewis on 03/20/2025 2:47 PM Final report signed by Jason Acevedo MD on 03/20/2025 3:43 PM Narrative 03/20/2025 3:43 PM EDT CLINICAL INFORMATION: 70 years old male with a past medical history of heart failure, peripheral artery disease, hypertension, hypothyroidism who presents for cardiac MRI at the request of Bala Smith MD for evaluation of cardiomyopathy. Body surface area (BSA): 2.14 m2 Baseline heart rate: 61 beats/min Baseline heart rhythm: Atrial fibrillation Comparison: None. SCAN TECHNIQUE: Cardiac MRI with and without contrast was performed on 1.5T Siemens Aera MRI scanner. Imaging sequences included bright blood axial stack with TRUFI, cine with SSFP, pre- and post-contrast T1 mapping and late gadolinium enhancement. Phase-contrast complex flow analysis was also performed 2 times during this examination with flow quantification performed at the levels of the aortic root and pulmonic valve. Contrast: A total volume of 13.7mL (0.15mmol/kg) of Gadavist (gadobutrol) was administered intravenously via a peripheral IV without any adverse effects. Study Quality: Excellent. Artifacts present include: non-limiting mild breathing motion artifacts. FINDINGS: --- Qualitative Assessment --- LV Cavity Size / Morphology: Normal LV Hypertrophy: None LV Global Function: Mildly Depressed RV Cavity Size / Morphology: Normal RV Hypertrophy: None RV Function: Normal Left Atrial Size: Normal Right Atrial Size: Normal Segmental Function (16 segment model): Basal LV: Normal. Mid LV: Normal. Distal LV: Normal. Regional Wall Motion Score Index (Score/segments) = 1.0 (1.0 = normal; 1.0-1.5 = mild; 1.6-2.0 = moderate; >2.0 = severe) Valves: Aortic Valve: Normal appearing with no significant stenosis or regurgitation Mitral Valve: Normal appearing with no prolapse or cleft, and no significant stenosis or regurgitation Tricuspid Valve: Normal appearing with no significant stenosis or regurgitation Pulmonary Valve: Normal appearing with no significant stenosis or regurgitation Aorta: Left-sided arch, normal in size without aneurysmal changes or coarctation. Pericardium: Normal, no pericardial effusion. Other: No significant extracardiac abnormalities. --- Quantitative Measurements --- (normal values, reference: Arnav Eli, et al. J Cardiovasc Magn Reson. 2020;22:87) LVEF: 50% (51 - 76) LVEDV: 157ml (83 - 207) LVESV: 78ml (19 - 88) LV Stroke Volume: 79ml (55 - 127) LV Mass (measured at end-diastole excluding papillary muscles): 88gm (57 - 152) LVEDVI: 73ml/m2 (47 - 107) LVESVI: 36ml/m2 (11 - 47) LV Mass Index: 41gm/m2 (36 - 75) RVEF: 52% (42 - 72) RVEDV: 150ml (87 - 244) RVESV: 72ml (29 - 117) RV Stroke Volume: 78ml (43 - 146) RVEDVI: 70ml/m2 (53 - 123) RVESVI: 33ml/m2 (17 - 59) Left Atrial Volume Index: 28mL/m2 (17 - 59) Right Atrial Volume Index: 26mL/m2 (15 - 61) Aortic Root at the Sinuses of Valsalva: 3.7cm Mid-Ascending Thoracic Aorta: 3.2cm Descending Thoracic Aorta: 2.4cm --- Complex Flow Analysis --- Pulmonary Flow (Qp): 73mL total (net) volume. 74mL forward volume. 1mL regurgitant volume. No significant pulmonic regurgitation (regurgitation fraction <10%). No significant pulmonic stenosis. Systemic Flow (Qs): 69mL total (net) volume. 73mL forward volume. 4mL regurgitant volume. No significant aortic regurgitation (regurgitation fraction <10%). No significant aortic stenosis. Qp:Qs ratio based on flow analysis is approximately 1:1. --- Tissue Characterization --- T1 Mapping: Myocardial [place] T1: 1053ms Blood pool [place] T1: 1581ms Myocardial post contrast T1: 462ms Blood pool post contrast T1: 320ms Hematocrit: 42% ECV: 28%, which is normal (reference on 1.5T MRI is 25% 4%) --- Viability (late gadolinium enhancement) --- (Note: Transmural extent of infarct is a marker of viable myocardium: <25% is viable, 25-50% is mixed; likely viable, 50-75% is mixed; likely non-viable, >75% is non-viable) Basal LV: No late gadolinium enhancement. Mid LV: No late gadolinium enhancement. Distal LV: No late gadolinium enhancement. Apical Cap: No late gadolinium enhancement. Procedure Note Jason Acevedo MD - 03/20/2025 CLINICAL INFORMATION: 70 years old male with a past medical history of heart failure, peripheralartery disease, hypertension, hypothyroidism who presents for cardiac MRIat the request of Bala Smith MD for evaluation of cardiomyopathy. Body surface area (BSA): 2.14 m2 Baseline heart rate: 61 beats/min Baseline heart rhythm: Atrial fibrillation Comparison: None. SCAN TECHNIQUE: Cardiac MRI with and without contrast was performed on 1.5T Siemens AerRI scanner. Imaging sequences included bright blood axial stack withTRUFI, cine with SSFP, pre- and post-contrast T1 mapping and lategadolinium enhancement. Phase-contrast complex flow analysis was alsoperformed 2 times during this examination with flow quantificationperformed at the levels of the aortic root and pulmonic valve. Contrast: A total volume of 13.7mL (0.15mmol/kg) of Gadavist (gadobutrol)was administered intravenously via a peripheral IV without any adverseeffects. Study Quality: Excellent. Artifacts present include: non-limiting mildbreathing motion artifacts. FINDINGS: --- Qualitative Assessment --- LV Cavity Size / Morphology: Normal LV Hypertrophy: None LV Global Function: Mildly Depressed RV Cavity Size / Morphology: Normal RV Hypertrophy: None RV Function: Normal Left Atrial Size: Normal Right Atrial Size: Normal Segmental Function (16 segment model): Basal LV: Normal. Mid LV: Normal. Distal LV: Normal. Regional Wall Motion Score Index (Score/segments) = 1.0 (1.0 = normal; 1.0-1.5 = mild; 1.6-2.0 = moderate; >2.0 = severe) Valves: Aortic Valve: Normal appearing with no significant stenosis orregurgitation Mitral Valve: Normal appearing with no prolapse or cleft, and nosignificant stenosis or regurgitation Tricuspid Valve: Normal appearing with no significant stenosis orregurgitation Pulmonary Valve: Normal appearing with no significant stenosis orregurgitation Aorta: Left-sided arch, normal in size without aneurysmal changes orcoarctation. Pericardium: Normal, no pericardial effusion. Other: No significant extracardiac abnormalities. --- Quantitative Measurements --- (normal values, reference: Arnav Eli et al. J Cardiovasc Magn Reson.2020;22:87) LVEF: 50% (51 - 76) LVEDV: 157ml (83 - 207) LVESV: 78ml (19 - 88) LV Stroke Volume: 79ml (55 - 127) LV Mass (measured at end-diastole excluding papillary muscles): 88gm (57 -152) LVEDVI: 73ml/m2 (47 - 107) LVESVI: 36ml/m2 (11 - 47) LV Mass Index: 41gm/m2 (36 - 75) RVEF: 52% (42 - 72) RVEDV: 150ml (87 - 244) RVESV: 72ml (29 - 117) RV Stroke Volume: 78ml (43 - 146) RVEDVI: 70ml/m2 (53 - 123) RVESVI: 33ml/m2 (17 - 59) Left Atrial Volume Index: 28mL/m2 (17 - 59) Right Atrial Volume Index: 26mL/m2 (15 - 61) Aortic Root at the Sinuses of Valsalva: 3.7cm Mid-Ascending Thoracic Aorta: 3.2cm Descending Thoracic Aorta: 2.4cm --- Complex Flow Analysis --- Pulmonary Flow (Qp): 73mL total (net) volume. 74mL forward volume. 1mLregurgitant volume. No significant pulmonic regurgitation (regurgitationfraction <10%). No significant pulmonic stenosis. Systemic Flow (Qs): 69mL total (net) volume. 73mL forward volume. 4mLregurgitant volume. No significant aortic regurgitation (regurgitationfraction <10%). No significant aortic stenosis. Qp:Qs ratio based on flow analysis is approximately 1:1. --- Tissue Characterization --- T1 Mapping: Myocardial [place] T1: 1053ms Blood pool [place] T1: 1581ms Myocardial post contrast T1: 462ms Blood pool post contrast T1: 320ms Hematocrit: 42% ECV: 28%, which is normal (reference on 1.5T MRI is 25% 4%) --- Viability (late gadolinium enhancement) --- (Note: Transmural extent of infarct is a marker of viable myocardium: <25%is viable, 25-50% is mixed; likely viable, 50-75% is mixed; likelynon-viable, >75% is non-viable) Basal LV: No late gadolinium enhancement. Mid LV: No late gadolinium enhancement. Distal LV: No late gadolinium enhancement. Apical Cap: No late gadolinium enhancement. IMPRESSION: 1. Normal sized left ventricle with mildly reduced global systolicfunction (LVEF 50%). There is no evidence of left ventricular myocardiallate gadolinium enhancement. Normal [place] T1 mapping and ECV is notsuggestive of infiltrative cardiomyopathy. 2. Normal sized right ventricle with normal global systolic function (RVEF52%). 3. No significant valvular abnormalities. 4. No evidence of intra-cardiac shunt. Critical Result: No. COMMUNICATION: Per this written report. By electronically signing this report, I, the attending physician, attrobin I have personally reviewed the images/data for the aboveexamination(s) and agree with the final edited report. Drafted by Katherine Lewis on 03/20/2025 2:47 PM Final report signed by Jason Acevedo MD on 03/20/2025 3:43 PM Bala [facility] IMG MRI PROCEDURES Final Result * Hematocrit, Blood (03/20/2025 11:46 AM EDT) HCT 42.1 40.0 - 51.0 % LAB HEMATOLOGY METHOD 03/20/2025 12:12 PM EDT [facility] Blood Venous blood specimen / Unknown Venipuncture / Unknown 03/20/2025 11:46 AM EDT 03/20/2025 12:02 PM EDT us Katherine Lewis MD LAB BLOOD ORDERABLES Final Resu lt [facility] [address] [place] [address] documented in this encounter Visit Diagnoses Diagnosis Cardiomyopathy Other primary cardiomyopathies Chronic obstructive pulmonary disease, unspecified (CMS/HCC) Essential hypertension Unspecified essential hypertension Dyspnea on exertion Other dyspnea and respiratory abnormality HFrEF (heart failure with reduced ejection fraction) (CMS/HCC) documented in this encounter Administered Medications Inactive Administered Medications - up to 3 most recent administrations Medication Order MAR Action Action Date Dose Rate Site gadobutrol (Gadavist) injection 13.7 mL 13.7 mL (rounded from 13.74 mL = 0.15 mL/kg 91.6 kg), Intravenous, Once in imaging, 1 dose, Starting on Tu03/20/25 at 1137, Until Tu03/20/25 at 1218, Routine, Imaging Protocol Orders Given 03/20/2025 12:18 PM EDT 13.7 mL documented in this encounter Additional Health Concerns Assessment Noted Time PHQ-9 Depression Total Score: 0 10/05/20 24 8:08 AM EST A fall risk assessment has been complete d for the patient 03/20/2025 1:31 PM EDT A Body Mass Index follow-up plan has been documented for the patient 03/20/2025 1:47 PM EDT documented as of this encounter Care Teams Floor Scraper Relationship Specialty Start Date End Date Cristopher Gray MD [facility] [address] [place] [address] PCP - General 12/14/22 Latanya Becker PA [address] [facility] [address] [place] [address] Physician Medical Or Surgical Instrument Maker Neurosurgery 05/03/23 Saima Esparza MD [address] [place] [address] Referring Physician 05/03/23 documented as of this encounter
--- OUTSIDE RECORDS SUMMARY | 2025-03-20 13:00 | XMS_ITS | Encounter Summary ---
Author Organization Healthcare Address [address] [place] [address] Care Team Providers Care Cso Name Role Phone Cristopher Gray MD Primary Care Provider [phone] Latanya Becker Unavailable [phone] Saima Esparza MD Unavailable [phone] Reason for Visit * Reason Comments Follow-up Encounter Details Date Type Department Care Team (Latest Contact Info) Description 03/20/2025 1:00 PM EDT Office Visit [place] [facility] [address], [address] [place] [address] Latanya Becker PA [address] [place] [address] Normal pressure hydrocephalus (CMS/HCC) (Primary Dx) Social History Tobacco Use Types Packs/Day Years [...] Sign Reading Time Taken Comments Blood Pressure 115/65 03/20/2025 1:22 PM EDT Pulse 77 03/20/2025 1:22 PM EDT Temperature - - Respiratory Rate - - Oxygen Saturation 96% 03/20/2025 1:22 PM EDT Inhaled Oxygen Concentration - - Weight - - Height 180.3 cm (5' 11 ) 03/20/2025 1:22 PM EDT Body Mass Index - - documented in this encounter Miscellaneous Notes * Progress Notes - Latanya Becker PA - 03/20/2025 1:00 PM EDT Dear Cristopher Gray MD, We had the pleasure of seeing your patient in our neurosurgical clinic today. HISTORY OF PRESENT ILLNESS: Toan Bearden II is a 70 y.o. year old male with NPH s/p right occipital Certas VPS 12/24/2022, currently set at 4, returning today for shunt check after cardiac MRI. Shunt peace he is doing well. Cardiac peace, he is carrying a portable defibrillator and nasal oxygen as needed. Past medical history, surgical history, family history, social history and review of systems as well as medications were all reviewed and there are no changes. Last Recorded Vitals Visit Vitals Smoking Status Never PHYSICAL EXAM: -Constitutional: Well developed, well nourished. No acute distress. Alert and oriented to person, place, and time. -Head, Eyes, Nose, Throat: Normocephalic, atraumatic. Pupils are equally round and reactive to light. Extra-ocular movements are intact without nystagmus. Oral mucosa is pink and moist. -Musculoskeletal: Moves all 4 extremities equally. Gait is steady and independent without spasticity. -Extremities: There is no clubbing, cyanosis, or edema. There is no pronator drift. -Neurologic: Alert and Oriented to person, place, and time. Speech is fluent. Patient follows commands and interacts appropriately. ASSESSMENT AND PLAN: Toan Bearden II is a 70 y.o. year old male with: NPH s/p right occipital Certas VPS 12/24/2022, currently set at 4 Remains at a 4 by irving device check Maintain Dec appt [facility] Will be discussing pacer/defibrillator (25% ejection fraction) Other than the obvious avoiding tubing, no restrictions or reservations from a NS standpoint. If any MRIs are needed will just need shunt check afterward within 24 hours. Thank you. If there are any questions or concerns please feel free to contact us: [facility] Department of Neurosurgery [address] [place] [address] [place], [place] [address] ; TIME A total of 20 minutes was spent with the patient in discussion and counseling including face to face discussion, examination, diagnostic research including medical record review, imaging and lab review, order placement, communication with other providers, documentation, and coordinating care. >50% spent in counseling and coordination of care. documented in this encounter Plan of Treatment Upcoming Encounters Date Type Department Care Team (Late st Contact Info) Description 10/08/2025 9:00 AM EST Office [facility] [place] [facility] [address], [address] [place] [address] Latanya Becker PA [address] [facility] [place] [address] documented as of this encounter Visit Diagnoses Diagnosis Normal pressure hydrocephalus (CMS/HCC)- Primary Idiopathic normal pressure hydrocephalus (INPH) documented in this encounter Additional Health Concerns Assessment Noted Time PHQ-9 Depression Total Score: 0 10/05/20 24 8:08 AM EST A fall risk assessment has been complete d for the patient 03/20/2025 1:31 PM EDT A Body Mass Index follow-up plan has been documented for the patient 03/20/2025 1:47 PM EDT documented as of this encounter Care Teams Cso Relationship Specialty Start Date End Date Cristopher Gray MD [address] [facility] [address] [place] [address] PCP - General 12/14/22 Latanya Becker PA [address] [place] [address] Physician Acid Regenerator Neurosurgery 05/03/23 Saima Esparza MD [address] [place] [address] Referring Physician 05/03/23 documented as of this encounter
--- OUTSIDE RECORDS SUMMARY | 2025-04-25 10:09 | XMS_ITS | Encounter Summary ---
Author Organization Healthcare Address [address] [place] [address] Care Team Providers Care City Driver Name Role Phone Cristopher Gray MD Primary Care Provider [phone] Latanya Becker Unavailable [phone] Saima Esparza MD Unavailable [phone] Encounter Details Date Type Department Care [...] Visit [place] [facility] [address], [address] [place] [address] Latanya Becker, GARRISON [address] [place] [address] documented as of this encounter [...] documented as of this encounter Care Teams City Driver Relationship Specialty Start Date End Date Cristopher Gray MD [address] [place] [address] PCP - General 12/14/22 Latanya Becker PA [address] [facility] [address] [place] [address] Physician Speech Language Pathologist Prn Neurosurgery 05/03/23 Saima Esparza MD [address] [place] [address] Referring Physician 05/03/23 documented as of this encounter
--- OUTSIDE RECORDS SUMMARY | 2025-04-25 10:09 | XMS_ITS | Encounter Summary ---
Author Organization Healthcare Address [address] [place] [address] Care Team Providers Care Endoscopy Registered Nurse Name Role Phone Cristopher Gray MD Primary Care Provider Latanya Becker Unavailable Saima Esparza MD Unavailable [phone] Reason for Visit * Reason Onset Date Comments HCN - Patient Message 01/25/2025 Shunt conc erns Encounter Details Date Type Department Care Team (Late st Contact Info) Description 01/25/2025 Telephone [place] [facility] [address], [address] [place] [address] Latanya Becker, GARRISON [address] [place] [address] HCN - Patient Message (Shunt [...] optimal time of day to reach caller: [phone] / pt [phone] Note: Please do not reply to this message. Follow-up communication and further actions as a result of this message need to be communicated with the patient directly, if the patient is not active onMyChart. If the patient is active on MyChart, they will receive notification of the communication/outcome via [employer]. documented in this encounter Plan of Treatment Upcoming Encounters Date Type Department Care Team (Late st Contact Info) Description 10/08/2025 9:00 AM EST Office Visit [place] [facility] [address], [address] [place] [address] Latanya Becker PA [address] [place] [address] documented as of this encounter [...] documented as of this encounter Care Teams Endoscopy Registered Nurse Relationship Specialty Start Date End Date Cristopher Gray MD [address] [facility] [address] [place] [address] PCP - General 12/14/22 Latanya Becker PA [address] [place] [address] Physician Barge Loader Neurosurgery 05/03/23 Saima Esparza MD [address] [place] [address] Referring Physician 05/03/23 documented as of this encounter
--- OUTSIDE RECORDS SUMMARY | 2025-04-25 10:09 | XMS_ITS | Encounter Summary ---
Author Organization Healthcare Address [address] [place] [address] Care Team Providers Care Manager Valuation Name Role Phone Humberto Peralta MD Primary Care Provider [phone] Cristopher Gray MD Primary Care Provider [phone] Latanya Becker Unavailable Saima Esparza MD Unavailable [phone] Encounter Details Date Type Department Care Team (Late Contact Info) Description 04/03/2022 Orders Only External Location [address] [place] [address] Saima Esparza MD [address] [place], [place] [id number] Social History Tobacco Use Types Packs/Day Years [...] Visit [place] [facility] [address], [address] [place] [address] Latanya Becker PA [address] [place] [address] documented as of this encounter [...] on filedocumented in this encounter Care Teams Manager Valuation Relationship Specialty Start Date End Date Humberto Peralta MD [address] [place] [address] PCP - General 02/28/21 12/02/22 Cristopher Gray MD [address] [place] [address] PCP - General 12/14/22 Latanya Becker PA [address] [phone] Physician Automobile Brakes Bonder Neurosurgery 05/03/23 Saima Esparza MD [address] [place] [address] Referring Physician 05/03/23 documented as of this encounter
--- OUTSIDE RECORDS SUMMARY | 2025-04-25 10:09 | XMS_ITS | Encounter Summary ---
Author Organization Healthcare Address [address] [place] [address] Care Team Providers Care Teletype Mechanic Name Role Phone Humberto Peralta MD Primary Care Provider [phone] Cristopher Gray MD Primary Care Provider [phone] Latanya Becker Unavailable [phone] Saima Esparza MD Unavailable [phone] Encounter Details Date Type Department Care Team (Late st Contact Info) Description 04/12/2022 Orders Only External Location [address] [place] [address] Provider, External Social History Tobacco [...] Visit [place] [facility] [address], [address] [place] [address] Latanya Becker, PA [address] [place] [address] documented as of this encounter [...] on filedocumented in this encounter Care Teams Teletype Mechanic Relationship Specialty Start Date End Date Humberto Peralta MD [address] [place] [address] PCP - General 02/28/21 12/02/22 Cristopher Gray MD [address] [place] [address] PCP - General 12/14/22 Latanya Becker PA [address] [address] Physician Bookkeeper Neurosurgery 05/03/23 Saima Esparza MD [address] [place] [address] Referring Physician 05/03/23 documented as of this encounter
--- OUTSIDE RECORDS SUMMARY | 2025-04-25 10:09 | XMS_ITS | Encounter Summary ---
Author Organization Healthcare Address [address] [place] [address] Care Team Providers Care Licensed Optician Name Role Phone Cristopher Gray MD Primary Care Provider [phone] Latanya Becker Unavailable [phone] Saima Esparza MD Unavailable [phone] Encounter Details Date Type Department Care [...] Visit [place] [facility] [address], [address] [place] [address] Latanya Becker, GARRISON [address] [place] [address] documented as of this encounter [...] documented as of this encounter Care Teams Licensed Optician Relationship Specialty Start Date End Date Cristopher Gray MD [address] [place] [address] PCP - General 12/14/22 Latanya Becker PA [address] [facility] [address] [place] [address] Physician Adult Care Provider Neurosurgery 05/03/23 Saima Esparza MD [address] [place], [place] [id number] Referring Physician 05/03/23 documented as of this encounter
--- OUTSIDE RECORDS SUMMARY | 2025-04-25 10:09 | XMS_ITS ---
Author Organization Unknown Medications Medication Instructions Effective Dates (start - stop) Status chlorhexidine gluconate 1.2 MG/ML Mouthwash 5354-34-57I63:00:00.000+00:0 0 - Completed levothyroxine sodium 0.112 M G Oral Tablet 0862-44-30K28:00:00.000+00:0 0 - Completed doxycycline hyclate 100 MG O ral Capsule 0944-41-01V11:00:00.000+00:0 0 - Completed levothyroxine sodium 0.112 M G Oral Tablet 1948-03-04E60:00:00.000+00:0 0 - Completed cephalexin 500 MG Oral Capsule 879-65-34S51:00:00.000+00:0 0 - Completed levothyroxine sodium 0.112 M G Oral Tablet 4131-14-92K16:00:00.000+00:0 0 - Completed levothyroxine sodium 0.112 M G Oral Tablet 7044-42-43W94:00:00.000+00:0 0 - Completed ondansetron 8 MG Oral Tablet 11-28-29:00:00.000+00:0 0 - Completed cefdinir 300 MG Oral Capsule 11-27-27:00:00.000+00:0 0 - Completed valsartan 160 MG Oral Tablet 12-17-05:00:00.000+00:0 0 - Completed amoxicillin 500 MG Oral Capsule 9471-56-46T66:00:00.000+00:0 0 - Completed finasteride 5 MG Oral Tablet 12-19-04:00:00.000+00:0 0 - Completed gabapentin 300 MG Oral Capsule 2 955-22-26F98:00:00.000+00:0 0 - Completed gabapentin 300 MG Oral Capsule 273-84-48M82:00:00.000+00:0 0 - Completed mupirocin 0.02 MG/MG Topical Ointment 8532-02-70Q99:00:00.000+00:0 0 - Completed gabapentin 300 MG Oral Capsule 609-16-13M54:00:00.000+00:0 0 - Completed finasteride 5 MG Oral [...] rosuvastatin calcium 10 MG O ral Tablet 6675-26-40A39:00:00.000+00:0 0 - Completed sertraline 50 MG Oral Tablet 11-28-07:00:00.000+00:0 0 - Completed rosuvastatin calcium 10 MG O ral Tablet 8275-96-52I59:00:00.000+00:0 0 - Completed rosuvastatin calcium 10 MG O ral Tablet 7274-74-05X14:00:00.000+00:0 0 - Completed montelukast 10 MG Oral Tablet 09-07-26:00:00.000+00:0 0 - Completed gabapentin 300 MG Oral Capsule 820-75-70I62:00:00.000+00:0 0 - Completed gabapentin 300 MG Oral Capsule 276-90-47P79:00:00.000+00:0 0 - Completed cephalexin 500 MG Oral Capsule 331-27-50G70:00:00.000+00:0 0 - Completed montelukast 10 MG Oral Tablet 08-06-06:00:00.000+00:0 0 - Completed rosuvastatin calcium 10 MG O ral Tablet 4355-46-49U71:00:00.000+00:0 0 - Completed azithromycin 500 MG Oral Tablet 0874-34-36X70:00:00.000+00:0 0 - Completed ondansetron 4 MG Disintegrat ing Oral Tablet 4160-98-04X53:00:00.000+00:0 0 - Completed tamsulosin hydrochloride 0.4 MG Oral Capsule 7158-32-65T93:00:00.000+00:0 0 - Completed nitrofurantoin, macrocrystal s 50 MG Oral Capsule 6786-15-89H75:00:00.000+00:0 0 - Completed valsartan 160 MG Oral Tablet 11-28-07:00:00.000+00:0 0 - Completed trazodone hydrochloride 50 M G Oral Tablet 4526-30-46C44:00:00.000+00:0 0 - Completed nitrofurantoin, macrocrystal s 50 MG Oral Capsule 2141-26-80C39:00:00.000+00:0 0 - Completed tamsulosin hydrochloride 0.4 MG Oral Capsule 8609-57-16N46:00:00.000+00:0 0 - Completed nitrofurantoin, macrocrystal s 50 MG Oral Capsule 5357-49-16D54:00:00.000+00:0 0 - Completed sertraline 50 MG Oral Tablet 11-25-07:00:00.000+00:0 0 - Completed 24 HR diltiazem hydrochlorid e 240 MG Extended Release Oral Capsule 1402-48-64T41:00:00.0 00+00:0 0 - Completed 24 HR diltiazem hydrochlorid e 240 MG Extended Release Oral Capsule 6144-40-04B51:00:00.0 00+00:0 0 - Completed tamsulosin hydrochloride 0.4 MG Oral Capsule 4261-83-55V83:00:00.000+00:0 0 - Completed 24 HR diltiazem hydrochlorid e 240 MG Extended Release Oral Capsule 6540-69-66I63:00:00.0 00+00:0 0 - Completed trazodone hydrochloride 50 M G Oral Tablet 7258-93-30Y48:00:00.000+00:0 0 - Completed 24 HR diltiazem hydrochlorid e 240 MG Extended Release Oral Capsule 3869-51-60E41:00:00.0 00+00:0 0 - Completed tamsulosin hydrochloride 0.4 MG Oral Capsule 9406-21-98Z39:00:00.000+00:0 0 - Completed valsartan 160 MG Oral Tablet 12-20-04:00:00.000+00:0 0 - Completed levofloxacin 500 MG Oral Tablet 4625-33-68M91:00:00.000+00:0 0 - Completed nitrofurantoin, macrocrystal s 50 MG Oral Capsule 3350-30-80W94:00:00.000+00:0 0 - Completed trazodone hydrochloride 50 M G Oral Tablet 5885-40-13C96:00:00.000+00:0 0 - Completed valsartan 160 MG Oral Tablet 11-25-07:00:00.000+00:0 0 - Completed 60 ACTUAT fluticasone propio madina 0.5 MG/ACTUAT / salmeterol 0.05 MG/ACTUAT Dry Powder Inhaler [Advair] 7196-30-71G00:00:00.000+00:0 0 - Completed 30 ACTUAT fluticasone furoat e 0.2 MG/ACTUAT / vilanterol 0.025 MG/ACTUAT Dry Powder Inhaler [Breo] 0587-38-20H27:00:00.000+00:0 0 - Completed 30 ACTUAT fluticasone furoat e 0.2 MG/ACTUAT / vilanterol 0.025 MG/ACTUAT Dry Powder Inhaler [Breo] 8738-97-75F16:00:00.000+00:0 0 - Completed acetaminophen 325 MG / hydro codone bitartrate 5 MG Oral Tablet 9516-83-91G83:00:00.000+00 :0 0 - Completed 30 ACTUAT fluticasone furoat e 0.2 MG/ACTUAT / vilanterol 0.025 MG/ACTUAT Dry Powder Inhaler [Breo] 5479-35-87R65:00:00.000+00:0 0 - Completed 60 ACTUAT fluticasone propio madina 0.5 MG/ACTUAT / salmeterol 0.05 MG/ACTUAT Dry Powder Inhaler [Advair] 3970-85-99N26:00:00.000+00:0 0 - Completed 60 ACTUAT fluticasone propio madina 0.5 MG/ACTUAT / salmeterol 0.05 MG/ACTUAT Dry Powder Inhaler [Advair] 8752-78-50G55:00:00.000+00:0 0 - Completed 30 ACTUAT fluticasone furoat e 0.2 MG/ACTUAT / vilanterol 0.025 MG/ACTUAT Dry Powder Inhaler [Breo] 9383-23-45G20:00:00.000+00:0 0 - Completed amoxicillin 875 MG / clavula madina 125 MG Oral Tablet 6150-89-72L93:00:00.000+00:0 0 - Completed 60 ACTUAT fluticasone propio madina 0.5 MG/ACTUAT / salmeterol 0.05 MG/ACTUAT Dry Powder Inhaler [Advair] 0793-21-96D18:00:00.000+00:0 0 - Completed 30 ACTUAT fluticasone furoat e 0.2 MG/ACTUAT / vilanterol 0.025 MG/ACTUAT Dry Powder Inhaler [Breo] 3240-96-52E75:00:00.000+00:0 0 - Completed 60 ACTUAT fluticasone propio madina 0.5 MG/ACTUAT / salmeterol 0.05 MG/ACTUAT Dry Powder Inhaler [Advair] 0439-89-41R54:00:00.000+00:0 0 - Completed Patient Care team information Name Category Status Period Participants - - Proposed period not known -
--- OUTSIDE RECORDS SUMMARY | 2025-04-25 10:09 | XMS_ITS | Encounter Summary ---
Author Organization Healthcare Address [address] [place] [address] Care Team Providers Care Chief Operator Name Role Phone Cristopher Gray MD Primary Care Provider [phone] Latanya Becker Unavailable [phone] Saima Esparza MD Unavailable [phone] Encounter Details Date Type Department Care Team (Late Contact Info) Description 03/19/2025 Telephone [facility] [address] [place] [phone] Mary Nagy RN [facility] Social History [...] Visit [place] [facility] [address], [address] [place] [address] Latanya Becker, GARRISON [address] [place] [address] documented as of this encounter [...] documented as of this encounter Care Teams Chief Operator Relationship Specialty Start Date End Date Cristopher Gray MD [facility] [address] [place] [address] PCP - General 12/14/22 Latanya Becker PA [address] [phone] Physician Torpedo Specialist Neurosurgery 05/03/23 Saima Esparza MD [address] [place] [address] Referring Physician 05/03/23 documented as of this encounter
--- OUTSIDE RECORDS SUMMARY | 2025-04-25 10:10 | XMS_ITS | Data Portability ---
[facility] Organization [facility] Address [address] [place] [address] Care Team Providers Care Technical Document Writer Name Role Phone TOPHER DEMPSEY Primary Care Provider [phone] Assessment Encounter Date Assessment Date Assessment LastModified by Organization Details LastModified Time 02/07/2024 02/07/2024 Patient presents with symptoms of UTI. Results of dipstick were positive for UTI. Advised to drink clear fluids, Tylenol for pain and take prescribed medications as instructed. Patient encouraged to follow up within 1 week if not improving. [email or web address] Not available 02/07/2024 10:09:39 Plan of Treatment Reminders Order Date Submit Date Provider Last Modified By Organization Details Last Modified Time Details Appointments None recorded. Lab urinalysis, dipstick 2023 024 [email or web address] 5 [facility], [address] [place], [address], 4 10:11:37 urinalysis, dipstick 2022 023 [email or web address] 5 [facility], [address] [place], [address], 3 09:07:18 Referral None recorded. Procedures None recorded. Surgeries None recorded. Imaging None recorded. Medication Orders ciprofloxac in 500 mg tablet 2023 024 [facility][id number], [address] [place], [address], 4 10:11:38 nystatin 100,000 unit/mL oral suspension 2023 024 [facility], [address] [place], [address], 4 13:17:59 Zithromax Z-Reji 250 mg tablet 2023 024 [facility]016, [address] [place], [address], 4 09:34:12 Augmentin 875 mg-125 mg tablet 2023 024 [facility], [address] [place], [address], 10:30:18 Patient TargetsNo targets recorded. Patient Instructions Encounter Date Encounter Id Patient Instructions Last Modified By Organization Details Last Modified Time 07/01/2023 [id number] nutrition [email or web address] Not available 06/18 10:29:48 exercise [email or web address] Not available 07/01 10:29:48 10/19/2023 [id number] eating healthy foods: care instructions Not available 10/19/2023 10:20:51 exercise [email or web address] Not available 10/19 10:20:51 11/22/2023 [id number] eating healthy foods: care instructions [email or web address] Not available 11/23/2023 18:27:37 exercise [email or web address] Not available 11/23 18:27:37 02/07/2024 [id number] eating healthy foods: care instructions [email or web address] Not available 02/07/2024 10:11:35 walking for exercise: care instructions [email or web address] Not available 02/07/2024 10:11:35 Reason for Referral None Reported. Results Created Date Observation Date Name Description Value Unit Range Abnormal Flag Note LastModifiedBy Organization Detail LastModifiedTime 01/13/20 23 01/12/2023 urina lysis , dipst ick Leukocytes Negati ve Not Available [facility] [address] [place], [address], 01/12/2023 09:52:20 01/13/20 23 01/12/2023 urina lysis , dipst ick Nitrite negati ve Not Available [facility] [address] [place] [address], [address], 01/12/2023 09:52:20 01/13/20 23 01/12/2023 urina lysis , dipst ick Urobilinogen .2 Not Available [facility] [address] [place] [address], [address], 01/12/2023 09:52:20 01/13/20 23 01/12/2023 urina lysis , dipst ick Protein Negati ve Not Available [facility] [address] [place] [address], [address], 01/12/2023 09:52:20 01/13/20 23 01/12/2023 urina lysis , dipst ick pH 6.0 Not Available [facility] [address] [place] [address], [address], 01/12/2023 09:52:20 01/13/20 23 01/12/2023 urina lysis , dipst ick Blood Negati ve Not Available [facility] [address] [place] [address], [address], 01/12/2023 09:52:20 01/13/20 23 01/12/2023 urina lysis , dipst ick Specific [place] [employer] 1.030 Not Available [facility] [address] [place] [address], [address], 01/12/2023 09:52:20 01/13/20 23 01/12/2023 urina lysis , dipst ick Ketone Negati ve Not Available [facility] [address] [place] [address], [address], 01/12/2023 09:52:20 01/13/20 23 01/12/2023 urina lysis , dipst ick Bilirubin Negati ve Not Available [facility] [address] [facility], [place], [address], 01/12/2023 09:52:20 01/13/20 23 01/12/2023 urina lysis , dipst ick Glucose Negati ve Not Available [facility] [address] [facility], [place], [address], 01/12/2023 09:52:20 01/13/20 23 01/12/2023 urina lysis , dipst ick Appearance Clear Not Available [facility] [address] [place] [address], [address], 01/12/2023 09:52:20 01/13/20 23 01/12/2023 urina lysis , dipst ick Color Dark Yellow Not Available [facility] [place] [facility] [address] [place] [address], [place], [address], 01/12/2023 09:52:20 02/07/20 24 02/07/2024 urina lysis , dipst ick Leukocytes Modera te Not Available [facility] [address] [facility], [place], [address], 02/07/2024 09:34:29 02/07/20 24 02/07/2024 urina lysis , dipst ick Nitrite negati ve Not Available [facility] [address], [place], [address], 02/07/2024 09:34:29 02/07/20 24 02/07/2024 urina lysis , dipst ick Urobilinogen .2 Not Available [facility] [address], [place], [address], 02/07/2024 09:34:29 02/07/20 24 02/07/2024 urina lysis , dipst ick Protein Negati ve Not Available [facility] [address], [place], [address], 02/07/2024 09:34:29 02/07/20 24 02/07/2024 urina lysis , dipst ick pH 5.0 Not Available [facility] [address], [place], [address], 02/07/2024 09:34:29 02/07/20 24 02/07/2024 urina lysis , dipst ick Blood Small Not Available [facility] [address], [place], [address], 02/07/2024 09:34:29 02/07/20 24 02/07/2024 urina lysis , dipst ick Specific [employer] 1.030 Not Available [facility] [address] [address], [place], [address], 02/07/2024 09:34:29 02/07/20 24 02/07/2024 urina lysis , dipst ick Ketone Negati ve Not Available [facility] [address], [place], [address], 02/07/2024 09:34:29 02/07/20 24 02/07/2024 urina lysis , dipst ick Bilirubin Negati ve Not Available [facility] [address], [place], [address], 02/07/2024 09:34:29 02/07/20 24 02/07/2024 urina lysis , dipst ick Glucose Negati ve Not Available [facility] [address] [facility], [place], [address], 02/07/2024 09:34:29 02/07/20 24 02/07/2024 urina lysis , dipst ick Appearance Cloudy Not Available [facility] [address], [place], [address], 02/07/2024 09:34:29 02/07/20 24 02/07/2024 urina lysis , dipst ick Color Dark Yellow Not Available [facility] [address], [place], [address], 02/07/2024 09:34:29 Result Notes None recorded. 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 Procedures Surgical History Date Name Laterality Status Provider Name and Address Organization Details Recorded Time Eye Surgery completed [facility] [employer] [facility]. 07/22/2022 10:43:47 Unlisted px femur/knee completed [facility]. 07/22/2022 10:43:57 Imaging Results None recorded. Procedure Notes None recorded. Medical Equipment None Reported. Allergies Allergen ID Allergen Name Allergen Category Reaction Reaction Severity Criticality Documentation Date Start Date Code Code System Note Provider Name and Address Organization Details Recorded Time 73106 sulfur medicatio n Not available Not available Not available 06/23/2022 61544 RxNorm Yarely bourne, [employer] 3 08:31:41 Medications Name Sig Start Date Stop Date Status Note LastModified by Organization Details LastModified Time Augmentin 875 mg-125 mg tablet Take 1 tablet every 12 hours by oral route for 7 days. 11/22 completed Not Available Not Available Not Available [...] Not Available Not Available Not Avai lable diltiazem CD 240 mg capsule,ext ended release 24 hr take 1 capsule (240 mg) by oral route once daily 2021 active Not Available Not Available Not Avai lable Zithromax Z-Reji 250 mg tablet TAKE 2 TABLETS (500 MG) BY ORAL ROUTE ONCE DAILY FOR 1 DAY THEN 1 TABLET (250 MG) BY ORAL ROUTE ONCE DAILY FOR 4 DAYS 02/06 completed Not Available Not Available Not Available ciprofloxac in 500 mg tablet Take 1 tablet every 12 hours by oral route for 10 days. 2023 active Not Available Not Available Not Avai lable Zofran 8 mg tablet Take 1 tablet every 6 hours by oral route as needed. 11/20 completed Not Available Not Available Not Available tamsulosin 0.4 mg capsule take 1 capsule [...] Not Available Not Available Not Avai lable cefdinir 300 mg capsule Take 1 capsule every 12 hours by oral route for 7 days. 09/16 completed Not Available Not Available Not Available sertraline 50 mg tablet take 1 tablet [...] Not Available Not Available Not Avai lable Zithromax 500 mg tablet Take 1 tablet every day by oral route for 5 days. 09/16 completed Not Available Not Available Not Available rosuvastati n 10 mg tablet take 1 [...] in Arterial blood by Pulse oximetry Systolic And Diastolic Provider Name and Address Organization Details Last Updated DateTime 4 179.07 cm 28 kg/m2 75195.2 9 g 97.9 [degF] 78 /min 98 % 98 % 112/68 mm[Hg] [employer] 4 09:10:24 Date Recorded Body height Body mass index (BMI) Body weight Body temperature Heart rate Oxygen saturation Oxygen saturation in Arterial blood by Pulse oximetry Provider Name and Address Organization Details Last Updated DateTime 4 179.07 cm 27.4 kg/m2 46677.9 2 g 97.6 [degF] 69 /min 97 % 97 % [employer]. 4 10:30:01 Date Recorded Body height Body mass index (BMI) Body weight Body temperature Heart rate Oxygen saturation Oxygen saturation in Arterial blood by Pulse oximetry Systolic And Diastolic Provider Name and Address Organization Details Last Updated DateTime 3 179.07 cm 27.9 kg/m2 51665.7 g 97.6 [degF] 80 /min 98 % 98 % 136/86 mm[Hg] [facility] [employer] [facility]. 3 09:50:07 Date Recorded Body height Body mass index (BMI) Body weight Body temperature Heart rate Oxygen saturation Oxygen saturation in Arterial blood by Pulse oximetry Provider Name and Address Organization Details Last Updated DateTime 4 179.07 cm 27.7 kg/m2 29808.1 g 97.5 [degF] 84 /min 97 % 97 % [employer]. 4 09:33:51 Date Recorded Body height Body mass index (BMI) Body weight Body temperature Heart rate Oxygen saturation Oxygen saturation in Arterial blood by Pulse oximetry Systolic And Diastolic Provider Name and Address Organization Details Last Updated DateTime 3 179.07 cm 27.9 kg/m2 77661.7 g 97.9 [degF] 77 /min 97.6 % 97.6 % 132/82 mm[Hg] [employer]. 09:44:10 Social History Question Answer Notes LastModified by Organizat ion Details LastModified Time Tobacco Smoking Status Never Smoker Yarely bourne, [employer]. 11/23/2022 08:30:47 Do You Have An Advance Directive? No Information not available 08/07/2022 Is Your Home Air Conditioned? Yes Information not available 08/07/2022 Are You Blind Or Do You Have Difficulty Seeing? Yes Wears Glasses Information not available 08/07/2022 What Is Your Level Of Caffeine Consumption? Occasional Information not available 01/12/2023 Are You A Caregiver? No Information not available 08/07/2022 What Type Of Inspector Filter Tip Do You Use? None Information not available [...] not available 07/22/2022 Who Is Your Employer? [employer] Information not available 07/22/2022 Have There Been [...] not available 07/01/2023 [facility] not available 08/07/2022 Do You Have A Medical Power Of Protective Signal Operator? No Information not available 08/07/2022 What Was [...] Organizat ion Details LastModified Time Do you use [...] anxious, or unable to sleep at night)? [id number] Information not available 07/22/2022 Do you have [...] Time pneumococcal polysaccharide PPV23 8 completed Yarely bourne, [facility] 09/16/2022 09:17:05 Influenza, high-dose, quadrivalent, PF 0 completed Yarely bourne [facility] 09/16/2022 09:17:05 COVID-19, mRNA, LNP-S, PF, 30 mcg/0.3 mL dose 1 completed Yarely bourne [facility] 09/16/2022 09:17:05 Hep A, adult 9 completed Yarely bourne [facility] 09/16/2022 09:17:05 Influenza, high-dose, trivalent, PF 9 completed Yarely Rivera [employer], [employer] 09/16/2022 09:17:05 Hep A, adult 8 completed Yarely Rivera null, [employer] 09/16/2022 09:17:05 zoster recombinant 8 completed Yarely Rivera null, [employer] 09/16/2022 09:17:05 Influenza, high-dose, quadrivalent, PF 2 completed Yarely Rivera null, [employer] 09/16/2022 09:17:05 Pneumococcal conjugate PCV 13 7 completed Yarely Nicole [employer], [employer]. 09/16/2022 09:17:05 COVID-19, mRNA, LNP-S, PF, 30 mcg/0.3 mL dose 1 completed Yarely [employer], [employer]. 09/16/2022 09:17:05 COVID-19, mRNA, LNP-S, PF, 30 mcg/0.3 mL dose 1 completed [employer], [employer]. 09/16/2022 09:17:05 Past Encounters Encounter ID Performer Location Encounter Start Date Encounter Closed Date Diagnosis/Indication Diagnosis SNOMED-CT Code Diagnosis ICD10 Code Diagnosis Note [id number] Nancy Anderson PA-C [employer] [address] [address] 07/22/2022 10:24:49 07/23/2022 09:13:53 Viral upper respiratory tract infection 747964876 J06.9 Continue current allergy medication s. Reassured patient lungs are clear. F/u if new or worsening symptoms. Body mass index 25-29 - overweight 921534674 Z68.29 healthy diet and regular aerobic exercise program Tobacco non-user [id number] 001 84825 Z13.89 [id number] Nancy Anderson PA-C [employer] [address] [address] 08/07/2022 11:01:10 08/13/2022 10:16:28 Acute otitis media 9225899 H65.01 Start zithromax. Nasal saline rinses, humidifier and continue current medication s. Body mass index 25-29 - overweight 137104329 Z68.29 healthy diet and regular aerobic exercise program Tobacco non-user [id number] 001 78402 Z13.89 [id number] Nancy Anderson PA-C [employer] [address] [address] 08/14/2022 09:15:29 08/20/2022 12:00:16 Acute maxillary sinusitis 98677953 J01.00 Increase fluids, Tylenol for fever or pain, and humidifier , continue Flonase nasal spray [id number] Nancy Anderson PA-C [employer] [place] [address] 3 09/01/2022 10:05:25 09/02/2022 07:35:25 Viral gastroenteritis 232101062 A08.4 soft bland diet for next 2-3 days, keep hydrated, rest, and Tylenol for fever or pain. F/u in3 days if not improved. [id number] Nancy Anderson PA-C [employer] [place] [address] 3 09/16/2022 09:09:43 09/16/2022 11:58:06 Nausea and vomiting 87764460 R11.2 clear liquids for next 24 hours followed by BRAT diet advancing as tolerated. If symptoms fail to improve or worsen needs to f/u with PCP for evaluation . Tobacco non-user [id number] 001 77084 Z13.89 Body mass index 25-29 - overweight 483291077 Z68.29 healthy diet and regular aerobic exercise program [id number] Nancy Anderson PA-C [employer] [place] [phone] 11/20/2022 09:36:26 11/23/2022 11:40:31 Acute maxillary sinusitis 06437516 J01.00 Increase fluids, Tylenol for fever or pain, and humidifier , continue Flonase nasal spray and antihistam ine. F/u in 5-7 days if not improved. 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 Body mass index 25-29 - overweight 168614290 Z68.29 healthy diet and regular aerobic exercise program Tobacco non-user [id number] 001 92884 Z13.89 [id number] [facility] [address] 3 07/01/2023 09:40:52 07/01/2023 10:53:44 Viral upper respiratory tract infection 876331602 J06.9 Continue current allergy medication s and may try Clorecedin for congestion . Reassured patient lungs are clear. F/u in 3-5 days if fever or bodyaches occur new or worsening symptoms. Body mass index 25-29 - overweight 926329274 Z68.29 healthy diet and regular aerobic exercise program Tobacco non-user [id number] 001 46073 Z13.89 [id number] Nancy Anderson PA-C [facility] [address] 3 10/19/2023 09:03:43 10/19/2023 12:25:30 Acute upper respiratory infection 06681639 J06.9 Rx for Augmentin 875mg as prescribed . Continue Chlorecide n for congestion . Humidifier . F/u in 5-7 days if not improved. Body mass index 25-29 - overweight 516338869 Z68.29 healthy diet and regular aerobic exercise program Tobacco non-user [id number] 001 07308 Z13.89 [id number] Nancy Anderson PA-C [facility] [facility] [address] [place] [address] 11/22/2023 10:29:02 11/25/2023 12:04:41 Acute maxillary sinusitis 27291441 J01.00 Antibiotic s as prescribed . Increase fluids, Tylenol for fever or pain, and humidifier , continue Flonase nasal spray and antihistam ine F/u in 5-7 days if not improved. Candidiasis of mouth 797 54107 B37.0 Explained nature of illness to patient. Recommend removing dentures nightly. F/u in 2 weeks if symptoms persist or worsen Body mass index 25-29 - overweight 097130451 Z68.29 healthy diet and regular aerobic exercise program Tobacco non-user [id number] 001 66447 Z13.89 [id number] Nancy Anderson PA-C [facility] [employer] [facility] [address] [place] [address] 02/07/2024 09:32:47 02/10/2024 15:03:50 Acute urinary tract infection 302570206 N39.0 Cipro as prescribed . Tylenol for pain or fever. Increase fluids avoiding soda. F/u in7-10 days for recheck, sooner if needed. Body mass index 25-29 - overweight 073814696 Z68.29 healthy diet and regular aerobic exercise program Tobacco non-user [id number] 001 83783 Z13.89 Health Concerns Section Related Observation LastModified by Organization Detai ls LastModified Time None Recorded Concern Status LastModified by Organization Details LastModified Time None Recorded Advance Directives Directive N: Payers Insurance Date Sequence Insurance Name Policy Number Policy [place] Covered Member ID [place] Member ID Guarantor Name 02/23/2024 1 [place] [facility] [id number] Toan Bearden II [id number] Toan Bearden 02/07/2024 MED[place] [employer] [facility] Toan Bearden [id number] Toan Bearden 02/07/2024 2 [place] Toan Bearden [id number] Toan Bearden Notes Date Note Type Note Provider [...] exam 1 year ago. Nancy Anderson PA-C [address] [place] [address], [phone], [employer] 01/13/2023 13:16:35 07/01/2023 text/html Sinusitis/Allerg yRe [...] smoking or tobacco use Nancy Anderson PA-C [address] [place] [address], [phone], [employer] 07/01/2023 10:30:23 10/19/2023 text/html Sinusitis/Allerg yRe [...] Risk Factors:history of smoking Nancy Anderson PA-C [address] [place] [address], [phone], [employer] 10/19/2023 10:21:38 11/22/2023 text/html Sinusitis/Allerg yRe [...] smoking or tobacco use Nancy Anderson PA-C [address] [place] [address], [phone], [employer] 11/23/2023 18:28:12 02/07/2024 text/html Lower Urinary [...] nausea; no vomiting;urgency;fr equency;dysuria Nancy Anderson PA-C [address] [place] [address], [phone], [employer] 02/07/2024 10:12:10
--- OUTSIDE RECORDS SUMMARY | 2025-04-25 10:10 | XMS_ITS | Data Portability ---
Author Organization [facility] and [facility] Address [address] [place] [address] Assessment No assessment recorded. Plan of Treatment [...] Abnormal Flag Note LastModifiedBy Organization Detail LastModifiedTime 09/08/2009/08/2022 TOTAL PROTE IN CSF total protein CSF 64 mg/dL 15-45 high Not Available [facility] (Lab Registration) [address], [place], [address], 09/08/2022 13:00:50 09/08/20 22 09/08/2022 TOTAL PROTE IN CSF note Unles s other peace noted testi ng perfo rmed at: [facility] [address] [place] [address] [phone] Otis pace MD CLIA: [id number] Not Available [facility] (Lab Registration) [address], [place], [address], 09/08/2022 13:00:50 09/08/20 22 09/08/2022 GLUCO SE CSF QUANT glucose CSF quant 69 mg/dL 40-75 Not Available [facility] (Lab Registration) [address] [place], [address], 09/08/2022 13:00:51 09/08/2009/08/2022 GLUCO SE CSF QUANT note Unles s other peace noted testi ng perfo rmed at: [facility] [address] [place] [address] [phone] Otis pace MD CLIA: [id number] Not Available [facility] (Lab Registration) [address] [place], [address], 09/08/2022 13:00:51 09/08/2009/08/2022 CELL COUNT CSF CSF tube # TUBE # 3 Not Available [facility] (Lab Registration) [address] [place], [address], 09/08/2022 13:38:05 09/08/20 22 09/08/2022 CELL COUNT CSF CSF color COLORL ESS colorl ess Not Available [facility] (Lab Registration) [address] [place], [address], 09/08/2022 13:38:05 09/08/20 22 09/08/2022 CELL COUNT CSF CSF apperance CLEAR clear Not Available [facility] (Lab Registration) [address] [place], [address], 09/08/2022 13:38:05 09/08/20 22 09/08/2022 CELL COUNT CSF volume 35 mL Not Available [facility] (Lab Registration) [address] [place], [address], 09/08/2022 13:38:05 09/08/20 22 09/08/2022 CELL COUNT CSF CSF WBC count 13 /uL 0-5 high Not Available [facility] (Lab Registration) [address] [place], [address], 09/08/2022 13:38:05 09/08/20 22 09/08/2022 CELL COUNT CSF CSF RBC count 2 /uL 0-1 high Not Available [facility] (Lab Registration) [address] [place], [address], 09/08/2022 13:38:05 09/08/20 22 09/08/2022 CELL COUNT CSF polynuclear 0 % Not Available [facility] (Lab Registration) [address] [place], [address], 09/08/2022 13:38:05 09/08/20 22 09/08/2022 CELL COUNT CSF mononuclear 100 % Not Available [facility] (Lab Registration) [address] [place], [address], 09/08/2022 13:38:05 09/08/20 22 09/08/2022 CELL COUNT CSF note Unles s other peace noted testi ng perfo rmed at: [facility] [address] [place] [address] [phone] Otis pace MD CLIA: [id number] Not Available [facility] (Lab Registration) [address] [place], [address], 09/08/2022 13:38:05 09/08/20 22 09/08/2022 GRAM STAIN BODY FLUID specimen source CSF Not Available [facility] (Lab Registration) [address] [place], [address], 09/08/2022 13:58:51 09/08/20 22 09/08/2022 GRAM STAIN BODY FLUID gram stain organism 1 NONE SEEN Not Available [facility] (Lab Registration) [address] [place], [address], 09/08/2022 13:58:51 09/08/2009/08/2022 GRAM STAIN BODY FLUID note Unles s other peace noted testi ng perfo rmed at: [facility] [address] [place] [address] [phone] Otis pace MD CLIA: [id number] Not Available [facility] (Lab Registration) [address] [place], [address], 09/08/2022 13:58:51 09/08/20 22 09/08/2022 CULTU RE CSF results MRB 09-09 836 No Growt h at Day 1 MRB 09-10 600 No Growt h at Day 2 09-11 534 No Growt h at Day 3 Not Available [facility] (Lab Registration) [address] [place], [address], 09/11/2022 05:35:53 09/08/20 22 09/08/2022 CULTU RE CSF note Unles s other peace noted testi ng perfo rmed at: [facility] [address] [place] [address] [phone] Otis pace MD CLIA: [id number] Not Available [facility] (Lab Registration) [address] [place], [address], 09/11/2022 05:35:53 09/08/20 22 09/08/2022 VDRL CSF QUAL note Unles s other peace noted testi ng perfo rmed at: [facility] [address] [place], [place] [address] [phone] Otis pace MD CLIA: [id number] Not Available [facility] (Lab Registration) [address] [place], [address], 09/12/2022 04:08:24 09/08/20 22 09/12/2022 VDRL CSF QUAL vdrl CSF Not Available [facility] (Lab Registration) [address] [place], [address], 09/12/2022 04:08:24 09/08/2009/08/2022 MULTI PLE SCLER OSIS( MS) PROFI LE note Unles s other peace noted testi ng [facility] lisa [address] [place] [address] [phone] Otis pace MD CLIA: [id number] Not Available [facility] (Lab Registration) [address] [place], [address], 09/14/2022 15:10:12 09/08/20 22 09/14/2022 MULTI PLE SCLER OSIS( MS) PROFI LE albumin TNP g/dL Test not perfo rmed. No serum gel recei shena. Conta ct: Talisha na Vanme ter 09-11 Not Available [facility] (Lab Registration) [address] [place], [address], 09/14/2022 15:10:12 09/08/20 22 09/14/2022 MULTI PLE SCLER OSIS( MS) PROFI LE immunoglobul in g, qn, serum TNP mg/dL Test not perfo rmed. No serum gel recei shena. Conta ct: Rhean na Vanme ter 09-11 SENT TO REFER ENCE LAB Not Available [facility] (Lab Registration) [address] [place], [address], 09/14/2022 15:10:12 09/08/20 22 09/14/2022 MULTI PLE SCLER OSIS( MS) PROFI LE albumin, CSF 28 mg/dL 15-55 Not Available [facility] (Lab Registration) [address] [place], [address], 09/14/2022 15:10:12 09/08/20 22 09/14/2022 MULTI PLE SCLER OSIS( MS) PROFI LE IgG, quant, CSF 2.0 mg/dL 0.0-10 .3 Not Available [facility] (Lab Registration) [address] [place], [address], 09/14/2022 15:10:12 09/08/20 22 09/14/2022 MULTI PLE SCLER OSIS( MS) PROFI LE CSF IgG index TNP Unabl e to calcu late resul t since non-n umeri c resul t obtai glenn for compo nent test. Not Available [facility] (Lab Registration) [address], [place], [address], 09/14/2022 15:10:12 09/08/20 22 09/14/2022 MULTI PLE SCLER OSIS( MS) PROFI LE oligoclonal banding -serum TNP Test not perfo rmed. No serum gel recei shena. Conta ct: Talisha yonis Del Angel ter 09-11 Not Available [facility] (Lab Registration) [address] [place], [address], 09/14/2022 15:10:12 09/08/20 22 09/14/2022 MULTI PLE [...] break down >100 Perfo rmed at: - [address] [address] [facility] Lab Direc tor: Cain patton PhD, Phone : [phone] Not Available [facility] (Lab Registration) [address], [place], [address], 09/14/2022 15:10:12 09/08/20 22 09/14/2022 MULTI PLE SCLER OSIS( MS) PROFI LE IgG/alb ratio, CSF 0.07 0.00-0 .25 Not Available [facility] (Lab Registration) [address] [place], [address], 09/14/2022 15:10:12 09/08/20 22 09/14/2022 MULTI PLE SCLER OSIS( MS) PROFI LE IgG, syn rate, CSF TNP mg/da y Unabl e to calcu late resul t since non-n umeri c resul t obtai glenn for compo nent test. Not Available [facility] (Lab Registration) [address] , [place], [address], 09/14/2022 15:10:12 09/08/20 22 09/14/2022 MULTI PLE [...] oblot ting metho dolog y. Not Available [facility] (Lab Registration) [address] , [place], [address], 09/14/2022 15:10:12 09/08/20 22 09/08/2022 ANGIO TENSI N CONVE RT ENZ., CSF note Unles s other peace noted testi ng perfo rmed at: [facility] [address] [place] [address] [phone] Otis pace MD CLIA: [id number] Not Available [facility] (Lab Registration) [address] , [place], [address], 09/14/2022 18:08:47 09/08/20 22 09/14/2022 ANGIO TENSI N CONVE RT ENZ., CSF angiotensin convert enz, CSF <1.5 U/L 0.0-3. 1 Speci men Comme nt: Test( s) 50458 2-SHARON , CSF Speci men Comme nt: resul ts are label ed for resea rch purpo ses only by the Speci men Comme nt: assay 's manuf actur er. The perfo rmanc e hugo acter istic s of Speci men Comme nt: this assay have not been estab lishe d [facility]. Speci men Comme nt: The [...] rmed at: - [facility] [place] [address] [facility] , [place] [address] Lab Direc tor: Jaelyn maldonado MD, Phone : [phone] Not Available [facility] (Lab Registration) [address], [place], [address], 09/14/2022 18:08:47 09/08/20 22 09/08/2022 LYME, LINE BLOT, CSF note Unles s other peace noted testi ng perfo rmed at: [facility] [address] [place] [address] [phone] Otis pace MD CLIA: [id number] Not Available [facility] (Lab Registration) [address], [place], [address], 09/19/2022 13:09:31 09/08/20 22 09/19/2022 LYME, LINE BLOT, CSF P93 Ab. IgG Absent Not Available [facility] (Lab Registration) [address] [place], [address], 09/19/2022 13:09:31 09/08/20 22 09/19/2022 LYME, LINE BLOT, CSF P66 Ab. IgG Absent Not Available [facility] (Lab Registration) [address] [place], [address], 09/19/2022 13:09:31 09/08/20 22 09/19/2022 LYME, LINE BLOT, CSF P58 Ab. IgG Absent Not Available [facility] (Lab Registration) [address] [place], [address], 09/19/2022 13:09:31 09/08/20 22 09/19/2022 LYME, LINE BLOT, CSF P45 Ab. IgG Absent Not Available [facility] (Lab Registration) [address] [place], [address], 09/19/2022 13:09:31 09/08/20 22 09/19/2022 LYME, LINE BLOT, CSF P41 Ab. IgG Absent Not Available [facility] (Lab Registration) [address] [place], [address], 09/19/2022 13:09:31 09/08/20 22 09/19/2022 LYME, LINE BLOT, CSF P39 Ab. IgG Absent Not Available [facility] (Lab Registration) [address] [place], [address], 09/19/2022 13:09:31 09/08/20 22 09/19/2022 LYME, LINE BLOT, CSF P30 Ab. IgG Absent Not Available [facility] (Lab Registration) [address] [place], [address], 09/19/2022 13:09:31 09/08/20 22 09/19/2022 LYME, LINE BLOT, CSF P28 Ab. IgG Absent Not Available [facility] (Lab Registration) [address] [place], [address], 09/19/2022 13:09:31 09/08/20 22 09/19/2022 LYME, LINE BLOT, CSF P23 Ab. IgG Absent Not Available [facility] (Lab Registration) [address] [place], [address], 09/19/2022 13:09:31 09/08/20 22 09/19/2022 LYME, LINE BLOT, CSF P18 Ab. IgG Absent Not Available [facility] (Lab Registration) [address] [place], [address], 09/19/2022 13:09:31 09/08/20 22 09/19/2022 LYME, LINE [...] inves tigat ional use only. Not Available [facility] (Lab Registration) [address] [place], [address], 09/19/2022 13:09:31 09/08/20 22 09/19/2022 LYME, LINE BLOT, CSF P41 Ab. IgM Absent Not Available [facility] (Lab Registration) [address] [place], [address], 09/19/2022 13:09:31 09/08/20 22 09/19/2022 LYME, LINE BLOT, CSF P39 Ab. IgM Absent Not Available [facility] (Lab Registration) [address] [place], [address], 09/19/2022 13:09:31 09/08/20 22 09/19/2022 LYME, LINE BLOT, CSF P23 Ab. IgM Absent Not Available [facility] (Lab Registration) [address] [place], [address], 09/19/2022 13:09:31 09/08/20 22 09/19/2022 LYME, LINE [...] C, p41=f ad mercado Perfo rmed at: - [facility] [place] [address] [address] , [place] [address] Lab Direc tor: Jaelyn maldonado MD, Phone : [phone] Not Available [facility] (Lab Registration) [address] [place], [address], 09/19/2022 13:09:31 09/08/20 22 09/08/2022 CULTU RE VIRUS CP note Unles s other peace noted testi ng perfo rmed at: [facility] [address] [place] [phone] Otis pace MD CLIA: [id number] Not Available [facility] (Lab Registration) [address], [place], [address], 09/21/2022 09:09:43 09/08/20 22 09/21/2022 CULTU RE VIRUS CP culvircp No virus isolat ed. Perfo rmed at: BN - [facility] [place] [address] [facility] , [place] [address] Lab Direc tor: Jaelyn maldonado MD, Phone : [phone] Not Available [facility] (Lab Registration) [address], [place], [address], 09/21/2022 09:09:43 09/08/20 22 09/08/2022 CRYPT OCOCC US ANTIG EN, CSF note Unles s other peace noted testi ng perfo rmed at: [facility] [address] [place] [phone] Otis pace MD CLIA: [id number] Not Available [facility] (Lab Registration) [address] [place], [address], 09/22/2022 15:13:21 09/08/20 22 09/22/2022 CRYPT OCOCC US ANTIG EN, CSF cryptococcus antigen, CSF Negati ve negati ve SENT TO REFER ENCE LAB Not Available [facility] (Lab Registration) [address], [place], [address], 09/22/2022 15:13:21 09/08/20 22 09/22/2022 CRYPT OCOCC US ANTIG EN, CSF cap mandated reflex to culture Not Indica ludin Perfo rmed at: BN - [facility] [place] [address] , [place] [address] Lab Direc tor: Jaelyn maldonado MD, Phone : [phone] Not Available [facility] (Lab Registration) [address] [place], [address], 09/22/2022 15:13:21 09/08/20 22 09/08/2022 lumba r punct ure diagn [facility] Hospit [facility] [address] [place] [address] Phone: Fax: Name: CARLITA RAM Exam Date: 2021 : [birth year] Age 67 Gender : M Access ion: [id number] Physic earnest: SAIMA MURPHY Facili [facility] Facili ty HSV: Outpat ient [...] LESLEY ALVAREZ 2021 [facility] Legall y authen ticate d by ANTONIO SUTTON 2021-10 13:22: 26 CC'ed Logic: Orderi ng Provid er: KATHERINE COVINGTON CC Provid er: ROSELYN OBANDO Attend ing Provid er: KATHERINE COVINGTON Referr ing Provid er: KATHERINE COVINGTON Admitt ing Provid er: KATHERINE COVINGTON [email or web address] [facility] (Radiology) [address] [place] [address] [place], [address], 09/09/2022 08:46:52 09/08/20 22 09/08/2022 lumba r punct ure (PROC ) No observ ation record ed. [email or web address] [facility]Radiology) [facility] [place], [address], 09/08/2022 13:31:57 09/16/20 22 09/08/[address]22 fluor o guide needl e place [facility] [place] [address] Phone: Fax: Name: CARLITA RAM Exam Date: 2021 : [birth year] Age 67 Gender : M Access ion: [id number] Physic earnest: SAIMA MURPHY Facili ty: [...] LESLEY ALVAREZ 2021 Thank you for referr ing CARLITA RAM to [facility] it Hospit al. Legall y authen ticate d by ANTONIO SUTTON 2021-10 07:15: 43 CC'ed Logic: Orderi ng Provid er: KATHERINE SAIMA CC Provid er: ROSELYN MATAT Attend ing Provid er: KATHERINE SAIMA Referr ing Provid er: KATHERINE SAIMA Admitt ing Provid er: KATHERINE SAIMA [email or web address] (Radiology) [address] [place], [address], 09/16/2022 08:35:51 09/16/2009/08/2022 lumba r punct ure (PROC ) No observ ation record ed. [address] Centralized Scheduling [address] [place], [address], 09/16/2022 08:35:27 Result Notes None recorded. Procedures Surgical History Date Name Laterality Status Provider Name and Address Organization Details Recorded Time prostatectomy completed Joycealexandria [place] - [facility] - [place] & [place] 09/09/2022 09:14:22 Cholecystectomy completed Joycealexandria [place] - [facility] - [place] 09/09/2022 09:14:30 open stone operation on kidney or renal pelvis completed Joycealexandria [place] - [facility] - [place] & [place] 09/09/2022 09:14:41 procedure on eye completed Joycealexandria [place]rell [place] - [facility] - [place] & [place] 09/09/2022 09:15:06 Back Surgery completed Joycealexandria [place] - [facility] - [place] 09/09/2022 09:15:12 procedure on upper arm completed Joyce Simba [place] - [facility] - [place] & [place] 09/09/2022 09:15:32 procedure on lower leg completed Joycedmitri [place]rell [place] - [facility] - [place] & [place] 09/09/2022 09:15:41 Imaging Results None recorded. Procedure Notes None recorded. Medical Equipment None Reported. Allergies Allergen ID Allergen Name Allergen Category Reaction Reaction Severity Criticality Documentation Date Start Date Code Code System Note Provider Name and Address Organization Details Recorded Time 71487 Substance with sulfonami de structure and antibacte rial mechanism of action (substanc e) medicatio n Not available Not available Not available 09/09/2022 16285 8003 SNOMED Joyce Cottrell [facility], [place] - [facility] - [place] & [place] 2 09:13:10 Medications Name Sig Start Date [...] Updated DateTime 07/14/2023 180.34 cm 27.2 kg/m2 96634.51 g 98 [degF] Jennifer Daniel [facility] & [place] 07/14/2023 09:49:59 Date Recorded Body height Body mass index (BMI) Body weight Body temperature Provider Name and Address Organization Details Last Updated DateTime 07/26/2024 180.34 cm 27.2 kg/m2 80444.51 g 98 [degF] Librado Hannah [facility] & [place] 07/26/2024 08:59:03 Date Recorded Body height Body mass index (BMI) Body weight Body temperature Oxygen saturation Oxygen saturation in Arterial blood by Pulse oximetry Heart rate Systolic And Diastolic Provider Name and Address Organization Details Last Updated DateTime 2 180.34 cm 30.5 kg/m2 63674.7 3 g 96.4 [degF] 97 % 97 % 85 /min 140/70 mm[Hg] Joyce Cottrell [facility] & [place] 09:12:45 Date Recorded Body height Body temperature Oxygen saturation Oxygen saturation in Arterial blood by Pulse oximetry Heart rate Systolic And Diastolic Provider Name and Address Organization Details Last Updated DateTime 2 180.34 cm 96 [degF] 98 % 98 % 92 /min 132/78 mm[Hg] Saima Murphy MD [address] [place] [address], [phone] [place] [address] & [place] 2 08:42:14 Social History None recorded. Functional Status None recorded. Mental Status None recorded. Family History Relationship Description Onset Age of this Age Resolved Age Notes LastModified by Organization Details LastModified Time Father No current problems or disability [email or web address] Not available 09/09 09:14:07 Mother No current problems or disability [email or web address] Not available 09/09 09:14:07 Medical History Condition Response Anxiety/Depression Y Hyperlipidemia Y Arthritis Y Hypertension Y Hypothyroidism Y Past Encounters Encounter ID Performer Location Encounter Start Date Encounter Closed Date Diagnosis/Indication Diagnosis SNOMED-CT Code Diagnosis ICD10 Code Diagnosis Note [id number] Saima Murphy MD [facility] [address] [place] [address] [place] [address] 09/09/2022 09:00:27 09/09/2022 10:35:21 Normal pressure hydrocephalus 90119385 G91.2 improvemen t noted after high-volum e spinal tap yesterday, distinct improvemen t in gait and balance as well as overall brightness . Patient himself feels better, I will follow-up with him over the next 2 weeks. In the meantime will send informatio n to Dr. Dionna Koenig at [facility] for further evaluation have also sent spinal fluid for further testing and awaiting results. [id number] Saima Murphy MD [facility] [address] [place] [address] [place] [address] 10/07/2022 08:27:24 10/07/2022 13:13:34 Normal pressure hydrocephalus 38207013 G91.2 Distinct drop-off of gait mobility noted on today's examinatio n, interestin gly he seemed to have a 2 week window of improvemen t with gradual drop-off since mostly noted on gait stability and balance but also on some degree of mental brightness . I have recommende d follow-up with Dr.Kara Koenig [facility] and will be sending these records to her. [id number] Carlito Gould Jr, MD [facility] [address] [address] 07/14/2023 09:27:48 07/14/2023 10:28:15 Lower urinary tract symptoms due to benign prostatic hypertrophy [id number] 9101 N40.1 patient with history of BPH. He underwent a green light laser TURP [place] [address] Lee. He continues to void well. Continues on tamsulosin and finasterid e as well. We discussed that typically folks can get off of the medication s after TURP. Screening for malignant neoplasm of prostate 438561545 Z12.5 patient's recent PSA was 2.0 in March 2023. Corrected for the finasterid e and this would be 4.0 in his within normal limits for his age. [id number] Carlito Gould Jr, MD [facility] [address] [address] 07/26/2024 08:53:34 07/26/2024 09:47:09 Lower urinary tract symptoms due to benign prostatic hypertrophy [id number] 9101 N40.1 patient with history of BPH. He underwent a green light laser TURP [place] [address] Lee. He continues to void well. Continues on tamsulosin and finasterid e as well. We discussed that typically folks can get off of the medication s after TURP. Screening for malignant neoplasm of prostate 068008646 Z12.5 patient's recent PSA was 2.0 in [...] [place] Member ID Guarantor Name 08/17/2024 1 [place]UCY BCBS [facility] [id number] Carlita Bearden [id number] Carlita Bearden 07/26/2024 2 [place] (MEDIC[place]) Carlita Bearden [id number] Carlita Bearden Notes Date Note Type [...] and activities. Patient works in the local [employer] department and was complaining of increasing difficulty [...] acute weakness and headache was seen at [facility] where another MRI scan was performed, [...] complaints at this time. Saima Murphy MD [address] [place] [address], [phone], [facility] 09/09/2022 10:32:33 10/07/2022 text/html Patient follows up [...] great of an issue. Saima Murphy MD [address] [place] [address], [phone], [facility] & [place] 10/07/2022 09:13:08 07/14/2023 text/html patient is a 68-year-old white male who I previously saw in [place]. He transferred care to [facility] today. He has a [...] PSA was 2.March. Carlito Gould Jr, MD [address] [place] [address], [address], [place], [address], [place] - [facility] 07/14/2023 15:54:55 07/26/2024 text/html Patient is [...] 2023. Corrected for finasteride would be 4.0. Cralito Gould Jr, MD [address] [place] [address] Drive, [address], [place], [address], [place] - [facility] 08/16/2024 10:12:01
--- OUTSIDE RECORDS SUMMARY | 2025-04-25 10:11 | XMS_ITS | Data Portability ---
Author Organization [facility] [place] [facility] Address [address] [facility] [address] [place] [address] Care Team Providers Care Beehive Kiln Supervisor Name Role Phone LUIS ARMANDO LEE Urologist DONG FOURNIER Needle Grinder Assessment Encounter Date Assessment Date Assessment LastModified [...] available 8 09:21:32 culture, urine 2017 018 [facility], [address] [place] [address], [address], 8 09:59:40 Referral None recorded. Procedures None recorded. Surgeries None recorded. Imaging None recorded. Medication Orders None recorded. Patient TargetsNo targets recorded. Patient Instructions Encounter Date Encounter Id Patient Instructions Last Modified By Organization Details Last Modified Time 06/22/2019 [id number] blood in the urine: care instructions [facility] – Not available 06/22/2019 09:22:18 06/25/2020 [id number] blood in the urine: care instructions [facility] – Not available 06/25/2020 09:20:38 Reason for Referral None Reported. Results Created Date Observation Date Name Description Value Unit Range Abnormal Flag Note LastModifiedBy Organization Detail LastModifiedTime 02/22/20 18 02/21/2018 urina lysis , dipst ick, auto Unknown Analyte Yellow Not Available [facility] Surgery Schedule [address] [place], [address], 02/21/2018 15:02:56 02/22/20 18 02/21/2018 urina lysis , dipst ick, auto Unknown Analyte Clear Not Available [facility] Surgery Schedule [address] [place], [address], 02/21/2018 15:02:56 02/22/20 18 02/21/2018 urina lysis , dipst ick, auto Unknown Analyte 1.015 Not Available [facility] Surgery Schedule [address] [place], [address], 02/21/2018 15:02:56 02/22/20 18 02/21/2018 urina lysis , dipst ick, auto Unknown Analyte 6.5 Not Available [facility] Surgery Schedule [address] [place], [address], 02/21/2018 15:02:56 02/22/20 18 02/21/2018 urina lysis , dipst ick, auto Unknown Analyte 25 Kiko/ul Trace Not Available [facility] Surgery Schedule [address] [place], [address], 02/21/2018 15:02:56 02/22/20 18 02/21/2018 urina lysis , dipst ick, auto Unknown Analyte Negati ve Not Available [facility] Surgery Schedule [address] [place], [address], 02/21/2018 15:02:56 02/22/20 18 02/21/2018 urina lysis , dipst ick, auto Unknown Analyte Trace Not Available [facility] Surgery Schedule [address] [place], [address], 02/21/2018 15:02:56 02/22/20 18 02/21/2018 urina lysis , dipst ick, auto Unknown Analyte Normal Not Available [facility] Surgery Schedule [address] [place], [address], 02/21/2018 15:02:56 02/22/20 18 02/21/2018 urina lysis , dipst ick, auto Unknown Analyte Negati ve Not Available [facility] Surgery Schedule [address] [place], [address], 02/21/2018 15:02:56 02/22/20 18 02/21/2018 urina lysis , dipst ick, auto Unknown Analyte 4 mg/dl Not Available [facility] Surgery Schedule [address] [place], [address], 02/21/2018 15:02:56 02/22/20 18 02/21/2018 urina lysis , dipst ick, auto Unknown Analyte 1 mg/dl (+) Not Available [facility] Surgery Schedule [address] [place], [address], 02/21/2018 15:02:56 02/22/20 18 02/21/2018 urina lysis , dipst ick, auto Unknown Analyte 50 Issac/ul Not Available [facility] Surgery Schedule [address] [place], [address], 02/21/2018 15:02:56 02/22/20 18 02/21/2018 urina lysis , dipst ick, auto Unknown Analyte Clean Catch Not Available [facility] Surgery Schedule [address] [place], [address], 02/21/2018 15:02:56 02/22/20 18 02/21/2018 urina lysis , dipst ick, auto Unknown Analyte Automa ludin Not Available [facility] Surgery Schedule [address] [place], [address], 02/21/2018 15:02:56 03/17/20 18 03/17/2018 cultu re, urine results [facility] e: CCUR Colle cted: 03/17 09:09 Site: Recei shena : 03/17 11:26 URINE SCREE N(CUL TURE) FINAL 03/21 11:53 03/21 No growt h day 4. Not Available [facility] [address] [place] [address], [address], 03/21/2018 11:53:16 03/17/20 18 03/17/2018 urina lysis , dipst ick, auto Unknown Analyte Yellow Not Available [facility]rology [address] [place], [address], 03/17/2018 09:03:16 03/17/20 18 03/17/2018 urina lysis , dipst ick, auto Unknown Analyte Clear Not Available [facility]rology [address] [place] [address], [address], 03/17/2018 09:03:16 03/17/20 18 03/17/2018 urina lysis , dipst ick, auto Unknown Analyte 1.010 Not Available [facility] [address] [place] [address], [address], 03/17/2018 09:03:16 03/17/20 18 03/17/2018 urina lysis , dipst ick, auto Unknown Analyte 7.0 Not Available [facility] [address], [address], 03/17/2018 09:03:16 03/17/20 18 03/17/2018 urina lysis , dipst ick, auto Unknown Analyte 500 Kiko/ul (++) Not Available [address], [address], 03/17/2018 09:03:16 03/17/20 18 03/17/2018 urina lysis , dipst ick, auto Unknown Analyte Negati ve Not Available [facility] [address], [address], 03/17/2018 09:03:16 03/17/20 18 03/17/2018 urina lysis , dipst ick, auto Unknown Analyte Negtiv e Not Available [facility] [address], [address], 03/17/2018 09:03:16 03/17/20 18 03/17/2018 urina lysis , dipst ick, auto Unknown Analyte Normal Not Available [facility] [address] [place], [address], 03/17/2018 09:03:16 03/17/20 18 03/17/2018 urina lysis , dipst ick, auto Unknown Analyte Not Available [facility] [address] [place], [address], 03/17/2018 09:03:16 03/17/20 18 03/17/2018 urina lysis , dipst ick, auto Unknown Analyte Negati ve Not Available [facility] [address] [place] [address], [address], 03/17/2018 09:03:16 03/17/20 18 03/17/2018 urina lysis , dipst ick, auto Unknown Analyte Normal Not Available [facility] [address] [place] [address], [address], 03/17/2018 09:03:16 03/17/20 18 03/17/2018 urina lysis , dipst ick, auto Unknown Analyte Negati ve Not Available [facility] [address] [place] [address], [address], 03/17/2018 09:03:16 03/17/20 18 03/17/2018 urina lysis , dipst ick, auto Unknown Analyte 250 Issac/ul Not Available [facility] [address] [place] [address], [address], 03/17/2018 09:03:16 03/17/20 18 03/17/2018 urina lysis , dipst ick, auto Unknown Analyte Clean Catch Not Available [facility] [address] [place] [address], [address], 03/17/2018 09:03:16 03/17/20 18 03/17/2018 urina lysis , dipst ick, auto Unknown Analyte Automa luidn Not Available [facility] [address] [place], [address], 03/17/2018 09:03:16 06/21/20 18 06/21/2018 urina lysis , dipst ick, auto Unknown Analyte Yellow Not Available [facility] [address] [place], [address], 06/21/2018 09:05:06 06/21/20 18 06/21/2018 urina lysis , dipst ick, auto Unknown Analyte Clear Not Available [facility] [address] [place], [address], 06/21/2018 09:05:06 06/21/20 18 06/21/2018 urina lysis , dipst ick, auto Unknown Analyte 1.025 Not Available [facility] [address] [place], [address], 06/21/2018 09:05:06 06/21/20 18 06/21/2018 urina lysis , dipst ick, auto Unknown Analyte 5.0 Not Available [facility] [address] [place], [address], 06/21/2018 09:05:06 06/21/20 18 06/21/2018 urina lysis , dipst ick, auto Unknown Analyte Negati ve Not Available [facility] [address] [place] [address], [address], 06/21/2018 09:05:06 06/21/20 18 06/21/2018 urina lysis , dipst ick, auto Unknown Analyte Negati ve Not Available [facility] [address] [place] [address], [address], 06/21/2018 09:05:06 06/21/20 18 06/21/2018 urina lysis , dipst ick, auto Unknown Analyte Negtiv e Not Available [facility] [address] [place], [address], 06/21/2018 09:05:06 06/21/20 18 06/21/2018 urina lysis , dipst ick, auto Unknown Analyte Normal Not Available [facility] [address] [place], [address], 06/21/2018 09:05:06 06/21/20 18 06/21/2018 urina lysis , dipst ick, auto Unknown Analyte Negati ve Not Available [facility] [address] [place] [address], [address], 06/21/2018 09:05:06 06/21/20 18 06/21/2018 urina lysis , dipst ick, auto Unknown Analyte 1 mg/dl Not Available [facility] [address] [place] [address], [address], 06/21/2018 09:05:06 06/21/20 18 06/21/2018 urina lysis , dipst ick, auto Unknown Analyte 1 mg/dl (+) Not Available [facility] [address] [place] [address], [address], 06/21/2018 09:05:06 06/21/20 18 06/21/2018 urina lysis , dipst ick, auto Unknown Analyte Negati ve Not Available [facility] [address] [place] [address], [address], 06/21/2018 09:05:06 06/21/20 18 06/21/2018 urina lysis , dipst ick, auto Unknown Analyte Clean Catch Not Available [facility] [address] [place] [address], [address], 06/21/2018 09:05:06 06/21/20 18 06/21/2018 urina lysis , dipst ick, auto Unknown Analyte Automa ludin Not Available [facility] [address] [place] [address], [address], 06/21/2018 09:05:06 06/22/20 19 06/22/2019 PSA, serum [...] absen ce of disea se. Not Available [facility] [address] [place] [address], [address], 06/22/2019 09:44:31 06/22/2006/22/2019 urina lysis , micro scopi c RBC, urine 3-10 0-2/hp f abnormal Not Available [facility] [address] [place] [address], [address], 06/22/2019 11:39:55 06/22/2006/22/2019 urina lysis , micro scopi c squamous epi. cells OCCASI ONAL 0-5/hp f normal Not Available [facility] [address] [place] [address], [address], 06/22/2019 11:39:55 06/22/2006/22/2019 urina lysis , dipst ick, auto Unknown Analyte Yellow Not Available [facility] [address] [place], [address], 06/22/2019 09:08:28 06/22/2006/22/2019 urina lysis , dipst ick, auto Unknown Analyte Clear Not Available [facility] [address] [place], [address], 06/22/2019 09:08:28 06/22/2006/22/2019 urina lysis , dipst ick, auto Unknown Analyte 1.020 Not Available [facility] [address] [place], [address], 06/22/2019 09:08:28 06/22/2006/22/2019 urina lysis , dipst ick, auto Unknown Analyte 5.0 Not Available [facility] [address] [place], [address], 06/22/2019 09:08:28 06/22/2006/22/2019 urina lysis , dipst ick, auto Unknown Analyte Negati ve Not Available [facility] [address] [place] [address], [address], 06/22/2019 09:08:28 06/22/2006/22/2019 urina lysis , dipst ick, auto Unknown Analyte Negati ve Not Available [facility] [address] [place] [address], [address], 06/22/2019 09:08:28 06/22/2006/22/2019 urina lysis , dipst ick, auto Unknown Analyte Negtiv e Not Available [facility] [address] [place] [address], [address], 06/22/2019 09:08:28 06/22/2006/22/2019 urina lysis , dipst ick, auto Unknown Analyte Normal Not Available [facility] [address] [place] [address], [address], 06/22/2019 09:08:28 06/22/2006/22/2019 urina lysis , dipst ick, auto Unknown Analyte Negati ve Not Available [facility] [address] [place] [address], [address], 06/22/2019 09:08:28 06/22/2006/22/2019 urina lysis , dipst ick, auto Unknown Analyte Normal Not Available [facility] [address] [place] [address], [address], 06/22/2019 09:08:28 06/22/2006/22/2019 urina lysis , dipst ick, auto Unknown Analyte Negati ve Not Available [facility] [address] [place], [address], 06/22/2019 09:08:28 06/22/2006/22/2019 urina lysis , dipst ick, auto Unknown Analyte 50 Issac/ul Not Available [facility] [address] [place] [address], [address], 06/22/2019 09:08:28 06/22/2006/22/2019 urina lysis , dipst ick, auto Unknown Analyte Clean Catch Not Available [facility] [address] [place] [address], [address], 06/22/2019 09:08:28 06/22/2006/22/2019 urina lysis , dipst ick, auto Unknown Analyte Automa ludin Not Available [facility] [address], [address], 06/22/2019 09:08:28 06/26/2006/26/2019 creat inine , blood creatinine, fs mg/dL M 0.7-1. 3 F0.6-1 .1 Not Available [facility] [address], [address], 06/26/2019 09:15:52 07/07/2007/07/2019 bun (bloo d urea nitro gen), serum or plasm a blood urea nitrogen 17 mg/dL 6-20 normal Not Available [facility] [address] [place] [address], [address], 07/07/2019 12:34:39 07/07/2007/07/2019 creat inine , serum or plasm a creatinine 1.15 mg/dL 0.70-1 .25 normal Not Available [facility] [address] [place] [address], [address], 07/07/2019 12:34:40 07/19/20 19 07/19/2019 cytol ogy, non-g yneco logic al, unspe cifie d speci men cytology SEE BELOW Depar tment of Patho logy Medic al Cytol ogy Repor t NAME: CARLITA THRASHER PATH. :NS-1 47 Copie s to: SOURC E OF [...] 15:09 Page 1 of 1 Not Available [facility] [address] [place] [address], [address], 07/21/2019 15:10:54 07/19/2007/19/2019 urina lysis , dipst ick, auto Unknown Analyte Yellow Not Available [facility] Surgery Schedule [address] [place], [address], 07/19/2019 13:40:38 07/19/2007/19/2019 urina lysis , dipst ick, auto Unknown Analyte Clear Not Available [facility] Surgery Schedule [address] [place], [address], 07/19/2019 13:40:38 07/19/2007/19/2019 urina lysis , dipst ick, auto Unknown Analyte 1.020 Not Available [facility] Surgery Schedule [address] [place], [address], 07/19/2019 13:40:38 07/19/2007/19/2019 urina lysis , dipst ick, auto Unknown Analyte 5.0 Not Available [facility] Surgery Schedule [address] [place], [address], 07/19/2019 13:40:38 07/19/2007/19/2019 urina lysis , dipst ick, auto Unknown Analyte Negati ve Not Available [facility] Surgery Schedule [address] [place], [address], 07/19/2019 13:40:38 07/19/20 19 07/19/2019 urina lysis , dipst ick, auto Unknown Analyte Negati ve Not Available [facility] Surgery Schedule [address] [place] [address], [address], 07/19/2019 13:40:38 07/19/2007/19/2019 urina lysis , dipst ick, auto Unknown Analyte Negtiv e Not Available [facility] Surgery Schedule [address] [place] [address], [address], 07/19/2019 13:40:38 07/19/2007/19/2019 urina lysis , dipst ick, auto Unknown Analyte Normal Not Available [facility] Surgery Schedule [address] [place] [address], [address], 07/19/2019 13:40:38 07/19/20 19 07/19/2019 urina lysis , dipst ick, auto Unknown Analyte Negati ve Not Available [facility] Surgery Schedule [address] [place] [address], [address], 07/19/2019 13:40:38 07/19/20 19 07/19/2019 urina lysis , dipst ick, auto Unknown Analyte Normal Not Available [facility] Surgery Schedule [address] [place] [address], [address], 07/19/2019 13:40:38 07/19/20 19 07/19/2019 urina lysis , dipst ick, auto Unknown Analyte Negati ve Not Available [facility] Surgery Schedule [address] [place] [address], [address], 07/19/2019 13:40:38 07/19/20 19 07/19/2019 urina lysis , dipst ick, auto Unknown Analyte 50 Issac/ul Not Available [facility] Surgery Schedule [address] [place], [address], 07/19/2019 13:40:38 07/19/20 19 07/19/2019 urina lysis , dipst ick, auto Unknown Analyte Clean Catch Not Available [facility] Surgery Schedule [address] [place], [address], 07/19/2019 13:40:38 07/19/20 19 07/19/2019 urina lysis , dipst ick, auto Unknown Analyte Automa ludin Not Available [facility] Surgery Schedule [address] [place], [address], 07/19/2019 13:40:38 06/25/2006/25/2020 urina lysis , dipst ick Unknown Analyte Straw Not Available [facility] [place] [address] [place] [address], [address], 06/25/2020 08:58:13 06/25/2006/25/2020 urina lysis , dipst ick Unknown Analyte Clear Not Available [facility] [address] [place], [address], 06/25/2020 08:58:13 06/25/2006/25/2020 urina lysis , dipst ick Unknown Analyte 1.030 Not Available [facility] [address] [place], [address], 06/25/2020 08:58:13 06/25/2006/25/2020 urina lysis , dipst ick Unknown Analyte 1.003 - 1.035 Not Available [facility] [address] [place], [address], 06/25/2020 08:58:13 06/25/2006/25/2020 urina lysis , dipst ick Unknown Analyte 5.0 Not Available [facility] [place] [address] [place] [address], [address], 06/25/2020 08:58:13 06/25/2006/25/2020 urina lysis , dipst ick Unknown Analyte 5.0 - 8.0 Not Available [facility] [address] [place] [address], [address], 06/25/2020 08:58:13 06/25/2006/25/2020 urina lysis , dipst ick Unknown Analyte Negati ve Not Available [address], [address], 06/25/2020 08:58:13 06/25/2006/25/2020 urina lysis , dipst ick Unknown Analyte Negati ve Not Available [address], [address], 06/25/2020 08:58:13 06/25/2006/25/2020 urina lysis , dipst ick Unknown Analyte Negati ve Not Available [address], [address], 06/25/2020 08:58:13 06/25/2006/25/2020 urina lysis , dipst ick Unknown Analyte Negati ve Not Available [address], [address], 06/25/2020 08:58:13 06/25/2006/25/2020 urina lysis , dipst ick Unknown Analyte Negati ve Not Available [address], [address], 06/25/2020 08:58:13 06/25/2006/25/2020 urina lysis , dipst ick Unknown Analyte Negati ve - Trace Not Available [address], [address], 06/25/2020 08:58:13 06/25/2006/25/2020 urina lysis , dipst ick Unknown Analyte Normal Not Available [facility] [address] [place], [address], 06/25/2020 08:58:13 06/25/2006/25/2020 urina lysis , dipst ick Unknown Analyte Normal Not Available [facility] [address] [place], [address], 06/25/2020 08:58:13 06/25/2006/25/2020 urina lysis , dipst ick Unknown Analyte Negati ve Not Available [facility] [address] [place], [address], 06/25/2020 08:58:13 06/25/2006/25/2020 urina lysis , dipst ick Unknown Analyte Negati ve Not Available [facility] [address] [place] [address], [address], 06/25/2020 08:58:13 06/25/2006/25/2020 urina lysis , dipst ick Unknown Analyte Normal Not Available [facility] [address] [place], [address], 06/25/2020 08:58:13 06/25/2006/25/2020 urina lysis , dipst ick Unknown Analyte Normal - 1mg/dl Not Available [facility] [address] [place], [address], 06/25/2020 08:58:13 06/25/2006/25/2020 urina lysis , dipst ick Unknown Analyte Negati ve Not Available [facility] [address] [place], [address], 06/25/2020 08:58:13 06/25/2006/25/2020 urina lysis , dipst ick Unknown Analyte Negati ve Not Available [facility] [address] [place] [address], [address], 06/25/2020 08:58:13 06/25/20 20 06/25/2020 urina lysis , dipst ick Unknown Analyte Negati ve Not Available [facility] [address], [address], 06/25/2020 08:58:13 06/25/20 20 06/25/2020 urina lysis , dipst ick Unknown Analyte Negati ve Not Available [address], [address], 06/25/2020 08:58:13 06/25/20 20 06/25/2020 urina lysis , dipst ick Unknown Analyte Clean Catch Not Available [address], [address], 06/25/2020 08:58:13 06/25/20 20 06/25/2020 urina lysis , dipst ick Unknown Analyte Visual Not Available [facility] [address], [address], 06/25/2020 08:58:13 07/07/20 19 07/07/2019 CT, abdom en + pelvi s, w/wo contr ast [address] [address] Paticlarisa t Name: CARLITA Praveena Wilkinson Suellen t : [birth year] 51 Paticlarisa t 4 Orderi [facility] er: LUIS ARMANDO GRANT OR EXAM DATE: 2018 EXAM: CT HEMATU MAXWELL PROTOC OL CLINIC AL INFORM ATION: [facility] tori ia. TECHNI QUE: Multip le axial CT images of the abdome n were obtain ed before and in the combin ed nephro graphi c and excret ory phases after a split bolus IV inject ion of Optira [id number] (1 x 100ml bottle [facility] [id number] 323-11 ). Bowel was marked with [...] Bonilla MD on 019 1:53 PM [email or web address] [facility] [address] [place], [address], 07/10/2019 08:31:12 Result Notes Documentation Provider Name and Address Organization Details Recorded Time Ct, Abdomen + Pelvis, W/wo Contrast : [facility] [address] [place] [address] Patient Name: CARLITA BEARDEN Patient : 1955 Patient Ordering Provider: LUIS ARMANDO LEE EXAM DATE: 07/07/2019 EXAM: CT HEMATURIA PROTOCOL CLINICAL INFORMATION: Microhematuria. TECHNIQUE: Multiple axial CT images of the abdomen were obtained before and in the combined nephrographic and excretory phases after a split bolus IV injection of [id number] (1 x 100ml bottle [facility] 9805-2509-50). Bowel was marked with water. CT IVP [...] bladder diverticulum. Interpreted By: Octavio Bonilla MD Marisolcherry Katamanda [facility] 07/10/2019 08:31:12 Problems Name Problem SNOMED Code Status Onset Date Resolution Date Notes Provider Name and Address Organization Details Recorded Time Mixed conductiv e AND sensorine ural hearing loss 88655013 Active 2015 From Automated Load;Prov ider: Dong Fournier;S tatus: Active Not Available [facility] 7 06:42:18 Lower urinary tract symptoms due to benign prostatic hypertrop hy 61509802850 101 Active 2014 From Automated Load;Prov ider: Luis Armando Lee;St atus: Active Not Available [facility] 6 07:50:29 Prostate specific antigen above reference range 435328446 Active 2014 From Automated Load;Prov ider: Lius Armando Lee;St atus: Active Not Available [facility] 6 07:50:29 Microscop ic hematuria 686069113 Active 2014 From Automated Load;Prov ider: Luis Armando Lee;St atus: Active Not Available [facility] 6 07:50:29 Acute non-suppu rative serous otitis media 155988934 Active 2015 From Automated Load;Prov ider: Dong Fournier;S tatus: Active Not Available [facility] 6 07:50:29 Conductiv e hearing loss 36529386 Active 2015 From Automated Load;Prov ider: Dong Fournier;S tatus: Active Not Available [facility] 6 07:50:29 Problem Notes None recorded. Procedures Surgical History Date Name Laterality Status Provider Name and Address Organization Details Recorded Time 0 Post Void Residual; Ultrasound completed Gunjan Kapadia [facility] 06/25/2020 09:08:12 9 Cystoscopy - male completed LUIS ARMANDO LEE MD [address] [place] [address], [address], [facility] 07/19/2019 14:20:36 9 Post Void Residual; Ultrasound completed Tahmina [facility] 06/22/2019 09:08:21 8 Post Void Residual; Ultrasound completed Xiomara Garibay [facility] 06/21/2018 09:08:03 8 Post Void Residual; Ultrasound completed Jacquie Kiser [facility] 03/17/2018 09:08:30 8 Uroflowmetry; Complex completed Tahmina [facility] 02/28/2018 09:30:39 8 Cystoscopy - male completed LUIS ARMANDO LEE MD [address] [place], [address], [facility] 02/21/2018 08:28:57 8 Post Void Residual; Ultrasound completed Lily Deans [facility] 02/01/2018 09:42:56 7 Post Void Residual; Ultrasound completed [facility] 08/03/2017 09:02:42 7 EXTRA CORPOREAL SHOCK WAVE LITHOTRIPSY (SURG) completed LUIS ARMANDO LEE MD [address] [place] [address], [phone], [facility] 03/22/2017 12:37:31 7 Post Void Residual; Ultrasound completed Bhargavi [facility] 01/25/2017 11:08:55 6 Post Void Residual; Catheter completed Bhargavi Ellison [facility] 10/15/2016 08:35:18 6 Audiogram completed RODRIGO ARRIOLA [address] [place], [address], [facility] 10/07/2016 10:20:39 Imaging Results None recorded. Procedure Notes None recorded. Medical Equipment None Reported. Allergies Allergen ID Allergen Name Allergen Category Reaction Reaction Severity Criticality Documentation Date Start Date Code Code System Note Provider Name and Address Organization Details Recorded Time 122365 Substance with sulfonami de structure and antibacte rial mechanism of action (substanc e) medicatio n Not available Not available Not available 09/11/20162010 88284 8003 SNOMED Comme nt: Creat ed By: Ailyn Rivas ated Date: 2010 1:02: 38 PM; Not Available [facility] 6 02:54:27 Medications Name Sig [...] Not Available Not Available Not Available azithromy in 500 mg tablet 10/07 completed Not Available [...] (PF) 50 mcg/0.5 mL intramusc ular johnnie n, kit 06/25 completed Not Available Not Available Not Available Vitals Date Recorded Body height Body mass index (BMI) Body weight Provider Name and Address Organization Details Last Updated DateTime 03/17/2018 180.34 cm 27.2 kg/m2 91584.51 g Jacquie Kiser [facility] 03/17/2018 09:02:58 Date Recorded Body height Body mass index (BMI) Body weight Provider Name and Address Organization Details Last Updated DateTime 06/21/2018 180.34 cm 27.2 kg/m2 33958.51 g Xiomara Tianham [facility] 06/21/2018 09:04:49 Date Recorded Body height Body mass index (BMI) Body weight Body temperature Provider Name and Address Organization Details Last Updated DateTime 06/22/2019 180.34 cm 27.2 kg/m2 13949.51 g 98 [degF] Tahmina Fragoso [facility] 06/22/2019 09:05:56 Date Recorded Body weight Body mass index (BMI) Body height Provider Name and Address Organization Details Last Updated DateTime 06/25/2020 75242.51 g 27.2 kg/m2 180.34 cm Gunjan Kapadia [facility] 06/25/2020 08:56:38 Social History Question Answer Notes LastModified by Organizat ion Details LastModified Time Tobacco Smoking Status Never Smoker Karen bourne [facility] 10/07/2016 09:19:00 How Much Tobacco Do You Chew? None [email or web address] Information not available 06/25/2020 What Was The Date Of Your Most Recent Tobacco Screening? 06/21/2018 Information n ot available 12/05/2019 How Much Tobacco Do You Smoke? No [email or web address] Information not available 06/25/2020 How Many Years Have You Smoked Tobacco? 0 [email or web address] Information not available 06/25/2020 Sex: Unknown Functional Status Question Answer Note LastModified by Organizat ion Details LastModified Time What is your level of alcohol consumption? Occasional Information not available 06/25/2020 Do you or have you ever used smokeless tobacco? Never used smokeless tobacco [email or web address] Information not available 06/25/2020 Do you or have you ever used e-cigarettes or vape? Never used electronic cigarettes [email or web address] Information not available 06/25/2020 Mental Status None recorded. Family History Nothing Reported. Medical History Condition Response Hypertension Y High Cholesterol Y Past Encounters Encounter ID Performer Location Encounter Start Date Encounter Closed Date Diagnosis/Indication Diagnosis SNOMED-CT Code Diagnosis ICD10 Code Diagnosis Note [id number] DONG FOURNIER MD [facility] [address] [place] [address] 1 10/07/2016 08:57:35 10/07/2016 12:06:38 Chronic serous otitis media 03546244 H65.[address] and patent. Hearing improved.a udiogram reviewed Acute sinusitis 59081414 J01.90 [id number] DONG FOURNIER MD [facility] [address] [place] [address] 1 10/07/2016 09:54:51 10/07/2016 10:21:42 Sensorineural hearing loss of bilateral ears 487920369 H90.3 [id number] LUIS ARMANDO LEE MD UROLOGY [facility] [address] [place] [address] 1 10/15/2016 07:35:58 10/15/2016 09:12:15 Lower urinary tract symptoms due to benign prostatic hypertrophy 0348267571 9101 N40.1 Benign pro static hyperplasia 807831678 N40.1 Microscopic hematuria 19 2046320 R31.21 Incomplete emptying of urinary bladder 015487735 R39.14 [id number] LUIS ARMANDO LEE MD UROLOGY [facility] [address] [place] [address] 1 01/25/2017 10:48:50 01/25/2017 12:53:18 Benign prostatic hyperplasia with outflow obstruction 687453627 N40.1 Microscopic hematuria 19 2829074 R31.21 [id number] DONG FOURNIER MD [facility] [address] [place] [address] 1 01/25/2017 10:48:50 01/25/2017 12:53:18 Chronic serous otitis media 05944169 H65.[address] and patent. f/u 6 mo [id number] LUIS ARMANDO LEE MD UROLOGY [facility] [address] [place] [address] 1 03/08/2017 07:58:58 03/08/2017 09:23:26 Ureteric stone 63397861 N20.1 [id number] LUIS ARMANDO LEE MD UROLOGY [facility] [address] [place] [address] 1 04/01/2017 09:27:16 04/01/2017 10:33:05 Kidney stone 61390337 N20.0 [id number] LUIS ARMANDO LEE MD UROLOGY [facility] [address] [place] [address] 1 08/03/2017 08:41:11 08/03/2017 09:54:35 Benign prostatic hyperplasia with outflow obstruction 549032425 N40.1 Incomplete emptying of urinary bladder 308001415 R39.14 History of calculus of kidney 069363388 Z87.602 [id number] DONG FOURNIER MD [facility] [address] [place] [address] 1 08/11/2017 09:03:32 08/11/2017 09:36:45 Chronic serous otitis media 06681801 H65.23 both tubes extruded and tm's look fine. No fluid present. F/U prn [id number] LUIS ARMANDO LEE MD UROLOGY [facility] [place] [address] 1 02/01/2018 09:03:07 02/01/2018 10:09:37 Benign prostatic hyperplasia with outflow obstruction 810675823 N40.1 Incomplete emptying of urinary bladder 631611487 R39.14 [id number] LUIS ARMANDO LEE MD SURGERY SCHEDULE [address] [place] [address] 1 02/21/2018 06:32:25 02/21/2018 06:32:56 [id number] LUIS ARMANDO LEE MD UROLOGY [facility] [address] [place] [address] 1 02/28/2018 09:08:03 03/01/2018 15:54:44 Lower urinary tract symptoms due to benign prostatic hypertrophy 8179602138 9101 N40.1 [id number] LUIS ARMANDO LEE MD UROLOGY [facility] [place] [address] 1 03/17/2018 08:50:49 03/17/2018 09:35:44 Acute urinary tract infection 823327205 N39.0 Benign pro static hyperplasia with outflow obstruction 644526733 N40.1 Incomplete emptying of urinary bladder 585481048 R39.14 [id number] LUIS ARMANDO LEE MD UROLOGY [facility] [address] [place] [address] 1 06/21/2018 08:55:40 06/21/2018 09:57:45 Benign prostatic hyperplasia with outflow obstruction 421430585 N40.1 [id number] LUIS ARMANDO ELE MD UROLOGY [facility] [address] [place] [address] 1 06/22/2019 08:39:54 06/22/2019 09:24:17 Benign prostatic hyperplasia with outflow obstruction 340038384 N40.1 Blood in urine 45446039 R31.9 [id number] LUIS ARMANDO LEE MD SURGERY SCHEDULE [address] [place] [address] 1 07/19/2019 12:34:50 07/19/2019 12:36:34 [id number] LUIS ARMANDO LEE MD UROLOGY [facility] [place] [address] 1 06/25/2020 08:51:24 06/25/2020 10:03:45 Benign prostatic hyperplasia with outflow obstruction 344523607 N40.1 Microscopic hematuria 19 6840077 R31.21 Health Concerns Section Related Observation LastModified by Organization Detai ls LastModified Time None Recorded Concern Status LastModified by Organization Details LastModified Time None Recorded Advance Directives Directive None Recorded Payers Insurance Date Sequence Insurance Name Policy Number Policy [place] Covered Member ID [place] Member ID Guarantor Name 06/21/2018 2 [facility] (MEDICARE REPLACEMENT/A DVANTAGE - PPO) [id number] Carlita Bearden [id number] Carlita Bearden 06/22/2020 2 [place] Carlita Bearden [id number] Carlita Bearden 06/25/2020 1 [place] [id number] Carlita Bearden II [id number] Carlita Bearden 04/22/2018 2 [place] Carlita Bearden [id number] Carlita Bearden Notes Date Note Type Note [...] frequency or dysuria. LUIS ARMANDO LEE MD [address] [place] [address], [phone], [facility] 03/17/2018 09:22:08 06/21/2018 text/html Mr. Bearden returns today for follow-up of BPH with severe incomplete bladder emptying. He underwent greenlight laser vaporization of the prostate in February. His preoperative residuals were over 500 mL. Overall he is very pleased. He has occasional mild postvoid dribbling. No dysuria or hematuria. MD Carlos Alberto [place], [address], [facility] 06/21/2018 09:16:40 06/22/2019 text/html Mr. [...] hematuria. No dysuria. LUIS ARMANDO LEE MD [address] [place] [address], [phone], [facility] 06/22/2019 09:22:52 06/25/2020 text/html Mr. Bearden returns today for follow-up. He has a history of BPH with severe incomplete bladder emptying treated with greenlight laser in 2017. He continues on Flomax and finasteride. Overall he is very pleased with his voiding. He has occasional postvoid dribbling. No dysuria. No gross hematuria. He was evaluated for microscopic hematuria a year ago. MD Carlos Alberto [place], [address], [facility] 06/25/2020 09:21:17
--- OUTSIDE RECORDS SUMMARY | 2025-04-25 10:11 | XMS_ITS | Clinical Summary ---
Author Organization Healthcare Address [address] [place] [address] Care Team Providers Care Heating Systems Installer Name Role Phone Cristopher Gray MD Primary Care Provider [phone] Latanya Becker Unavailable Saima Esparza MD Unavailable [phone] Allergies Active Allergy Reactions Criticality Noted [...] (one) time each day in the morning. 6 Active levothyroxine (Synthroid, Levoxyl) 112 MCG tablet Take 1 tablet (112 mcg) by mouth 1 (one) time each day before breakfast. 6 Active nitrofurantoin (Macrodantin) 50 MG capsule Take 1 capsule (50 mg) by mouth 1 (one) time each day in the morning. 6 Active rosuvastatin (Crestor) 10 MG tablet Take 1 tablet (10 mg) by mouth 1 (one) time each day in the evening. 6 Active sertraline (Zoloft) 50 MG tablet Take 1 tablet (50 mg) by mouth 1 (one) time each day in the morning. 6 Active tamsulosin (Flomax) 0.4 MG 24 hr capsule Take 1 capsule (0.4 mg) by mouth every night. 6 Active valsartan (Diovan) 160 MG tablet Take 1 tablet (160 mg) by mouth 1 (one) time each day in the morning. 6 Active triamcinolone (Nasacort) 55 MCG/ACT nasal inhaler SPRAY 1-2 SPRAY INTO BOTH NOSTRILS ONCE A DAY 3 Active traZODone (Desyrel) 50 MG tablet Take 1 tablet (50 mg) by mouth every night. Active montelukast (Singulair) 10 MG tablet Take 1 tablet (10 mg) by mouth every night. 3 Active Advair Diskus 500-50 MCG/ACT diskus inhaler Inhale 1 puff 2 (two) times a day. 3 Active fexofenadine (Keena) 180 MG tablet Take 1 tablet (180 mg) by mouth 1 (one) time each day in the morning. 3 Active dilTIAZem CD (Cardizem CD) 240 MG 24 hr capsule Take 1 capsule (240 mg) by mouth 1 (one) time each day in the morning. 2 Active aspirin 81 MG EC tablet Take 1 tablet (81 mg total) by mouth 1 (one) time each day. Hold your dose for 2 weeks or until your neurosurgeon tells you it is okay to restart. 3 Active mupirocin (Bactroban) 2 % ointment 3 Active fenofibrate (Triglide) 160 MG tablet Active fluticasone (Flonase Allergy Relief) 50 MCG/ACT nasal spray Two times a day Ac tive Azelastine HCl 137 MCG/SPRAY solution SPRAY 1 SPRAY INTO EACH NOSTRIL TWICE A DAY NEEDED FOR ALLERGIES 3 Active albuterol 108 (90 Base) MCG/ACT inhaler INHALE TWO PUFFS BY MOUTH EVERY 6 HOURS NEEDED 4 Active ciprofloxacin (Cipro) 500 MG tablet Take by mouth 2 (two) times a day. Active famotidine (Pepcid) 20 MG tablet 4 Active naproxen (Naprosyn) 500 MG tablet 4 Active amantadine (Symmetrel) 100 MG tablet 5 Active celecoxib (CeleBREX) 100 MG capsule Take 1 capsule by mouth 2 times a day. 5 Active Jardiance 10 MG Take 1 tablet by mouth daily. 5 Active furosemide (Lasix) 40 MG tablet TAKE ONE TABLET BY MOUTH EVERY DAY NEEDED FOR EDEMA 5 Active metoprolol succinate XL (Toprol-XL) 25 MG 24 hr tablet Take 1 tablet by mouth daily. 5 Active pantoprazole (Protonix) 40 MG EC tablet take one tablet by mouth every day on an empty stomach 5 Active Xarelto 20 MG tablet TAKE ONE TABLET BY MOUTH EVERY EVENING with meal 5 Active Entresto 24-26 MG tablet Take 1 tablet by mouth 2 times a day. 5 Active spironolactone (Aldactone) 25 MG tablet Take 1 tablet by mouth daily. 5 Active cephalexin (Keflex) 250 MG capsule Take by mouth daily. 5 Active gabapentin (Neurontin) 400 MG capsule 5 Active Active Problems Problem Noted Date Diagnosed Date Normal pressure hydrocephalus 12/03/2022 Resolved Problems Problem Noted Date Diagnosed Date Resolved Date Hydrocephalus 12/24/2022 12/25/2022 NPH (normal pressure hydrocephalus) 12/14/2022 12/25/2022 Encounters Date Type Department Care Team Description 03/20/2025 1:00 PM EDT Office Visit [place] [facility] [address] [place] [address] Latanya Becker, PA Normal pressure hydrocephalus (CMS/HCC) (Primary Dx) 03/20/2025 9:43 AM EDT - 03/20/2025 11:59 PM EDT Hospital Encounter [facility] [address] [place] [address] Cecy Alston, RN Cardiomyopathy; Chronic obstructive pulmonary disease, unspecified (CMS/HCC); Essential hypertension; Dyspnea on exertion; HFrEF (heart failure with reduced ejection fraction) ([facility]) Discharge Disposition: Home or Self Care 03/20/2025 Travel 03/19/2025 Travel 03/19/2025 Telephone [facility] [address] [place] [id number] Mary Nagy RN 01/25/2025 Telephone [facility] [address] [place] [address] Latanya Becker PA [facility] - [...] Description 10/08/2025 9:00 AM EST Office Visit [facility] [address] [place] [address] Latanya Becker, PA [address] [place] [address] Health Maintenance Due Date Last Done Comments [facility]-Hepatitis C Screening 1955 [facility]-Medicare Annual Wellness (AWV) 1955 [facility]-Infant/Child/Adol SDOH Screenings 1955 [facility]- SDOH Screenings 1971 [facility]-Adult SDOH Screenings 1971 [facility]-DTaP,Tdap,and Td Vaccines (1 - Tdap) 01/25/1972 CT Colonography 1998 Colonoscopy 1998 FIT-DNA 1998 FIT 1998 FOBT 1998 Sigmoidoscopy 1998 [facility]-Colorectal Cancer Screening 1998 [facility]-Zoster Vaccines (2 of 2) 12/02/2018 10/07/2018 [id number] Vaccine ( season) 2024 08/20/2021, 03/24/2021, 03/02/2021 [facility]-Influenza Vaccine (#1) 06/18/202508/07, 07/30/2023, 07/30/2022, Additional history exists [facility]-Depression Screening 10/05/2025 10/05/2024, 09/17 [facility]-Hepatitis A Vaccines Aged Out 06/14/2019, 08/20 No longer eligible based on patient's age to complete this topic [facility]-Pneumococcal Vaccine: 50+ Years Completed 04/05/2024, 07/22/2018, 01/28/2017 [facility]-RSV Vaccine: 60+ Years or Completed 07/06/2024 [facility]-Obesity Intervention Completed 025, 10/05/2024, 10/05/2024, Additional [...] this topic Medical Devices Implanted Type Area Non Emergency Services Ambulance Driver Device Identifier Shelf Expiration Date Model / Serial / Lot Certas Plus Inline Siphon - [id number] Implanted:Qty: 1 on 12/24/2022 by Jerrell Jarrett MD at [facility] [id number] 08/17/2027 [id number] / / [id number] Catheter Antibiotic Str Vent - [id number] Implanted:Qty: 1 on 12/24/2022 by Jerrell Jarrett MD at [facility] [id number] 09/16/2023 [id number] / / [id number] Procedures Procedure Name Priority Date/Time Associated Diagnosis [...] left ventricular myocardial late gadolinium enhancement. Normal minto T1 mapping and ECV is not suggestive [...] --- Tissue Characterization --- T1 Mapping: Myocardial minto T1: 1053ms Blood pool minto T1: 1581ms Myocardial post contrast T1: 462ms [...] No late gadolinium enhancement. Procedure Note Jason Aceevdo MD - 03/20/2025 CLINICAL INFORMATION: 70 years [...] --- Quantitative Measurements --- (normal values, reference: Kawel-Marco N, et al. J Cardiovasc Magn Reson.2020;22:87) LVEF: [...] --- Tissue Characterization --- T1 Mapping: Myocardial minto T1: 1053ms Blood pool minto T1: 1581ms Myocardial post contrast T1: 462ms [...] of left ventricular myocardiallate gadolinium enhancement. Normal minto T1 mapping and ECV is notsuggestive of infiltrative cardiomyopathy. 2. Normal sized right ventricle with normal global systolic function ([id number]%). 3. No significant valvular abnormalities. 4. No evidence of intra-cardiac shunt. Critical Result: No. COMMUNICATION: Per this written report. By electronically signing this report, I, the attending physician, ling I have personally reviewed the images/data for the aboveexamination(s) and agree with the final edited report. Drafted by Katherine Lewis on 03/20/2025 2:47 PM Final report signed by Jason Acevedo MD on 03/20/2025 3:43 PM [facility] MRI PROCEDURES Final Result * Hematocrit, Blood (03/20/2025 11:46 AM EDT) HCT 42.1 40.0 - 51.0 % LAB HEMATOLOGY METHOD 03/20/2025 12:12 PM EDT [facility] Blood Venous blood specimen / Unknown Venipuncture / Unknown 03/20/2025 11:46 AM EDT 03/20/2025 12:02 PM EDT us Katherine Lewis MD LAB BLOOD ORDERABLES Final Resu lt [facility] [address] [place] [address] from Last 3 Months Insurance [place] [address] Advance Directives * Full Code (Latest Code Status on File) Date Activated Date Inactivated Comments 12/24/2022 9:13 AM 12/25/2022 6:51 PM Question Answer Comments Patient has decision-making capacity? Yes Care Teams Heating Systems Installer Relationship Specialty Start Date End Date Cristopher Gray MD [id number] [address] [place] [address] PCP - General 12/14/22 Latanya Becker PA [address] [address] Physician Maintenance And Engineering Manager Neurosurgery 05/03/23 Saima Esparza MD [address] [place] [address] Referring Physician 05/03/23
[2025-04-25 10:22] VITALS: BP 114/58; PULSE 69; RESP 14; O2SAT 97; BMI 27.8
--- NOTE | 2025-04-25 12:05 | EXP.PAIN.SOA ---
[facility] Disclaimer: The information contained in this section may have been updated after the patient was seen, as this information can be updated by other users. Medical History On continuous oral anticoagulation Other cardiomyopathies Acute sinusitis Bilateral serous otitis media Viral syndrome Hematoma of right lower extremity Contusion of right lower extremity Acute bronchitis Acute sinusitis Cough variant asthma Muscle spasms of both lower extremities Encounter for screening for malignant neoplasm of prostate Impaired glucose tolerance Encounter for immunization Left hip pain Impaired glucose tolerance Encounter for screening for malignant neoplasm of prostate Encounter for laboratory testing for COVID-19 virus Bilateral otitis media Bronchitis Acute and chronic respiratory failure with hypoxia COPD mixed type Chronic dyspnea Multiple pulmonary nodules ILD (interstitial lung disease) Restrictive lung disease History of 2019 novel coronavirus disease (COVID-19) Dyspnea on exertion Exposure to COVID-19 virus Surgical History History of surgery on arm History of nasal surgery History of cholecystectomy History of non-cataract eye surgery History of lumbar surgery Family History Mother Lung disease Social History Smoking Status: Never smoker alcohol intake: never substance use type: denies use current occupational status: other Travel in the last 8 weeks?: None household members: none housing: house PM Subjective & Objective Subjective Subjective:: Patient is a pleasant 70-year-old male who presents today for follow-up of his left bursa injection on 04/10/2025. He does state it took a few days to kick in however has provided at least 90% relief and is still doing pretty well. He does state overall his pain today is more a 3 out of 10 in his right knee however is having pain also in the left knee. He states those pains bilaterally do go to at least a 5 or more with increased activity or movement. Patient did have a right knee gel injection earlier this year with orthopedics. He states that it only did so-so. Patient does have a lot of pain and limited range of motion in his bilateral knees. Patient denies any prior replacement. Patient is asking if we can do anything additional for the knee pain as it is interfering with his ability perform activities of daily living such as cooking and cleaning. Patient is prescribed compounded cream from our office. His Jayant has been reviewed and is appropriate. Review of Systems: General: No recent weight changes, no fever, no sleep disturbances Respiratory: No cough, no shortness of air, no recurring pulmonary infections Cardiovascular/peripheral vascular: No chest pain, no palpitations, no edema, no shortness of breath Gastrointestinal: No new onset incontinence, normal bowel movements reported Genitourinary: No new onset incontinence Musculoskeletal: Bilateral knee pain Psychiatric: [Normal mood/affect] Neurological: [Denies weakness in extremities], [denies balance issues] Pain at rest (0-10 scale): 5 Objective Objective:: Physical Exam: General: Alert and oriented x3, no acute distress, pleasant and cooperative Lungs: Respirations even and unlabored, symmetrical chest expansion Eyes: PERRL Musculoskeletal: Flexion and extension of bilateral knees somewhat guarded secondary to pain, [antalgic gait noted] Neurological: Speech clear, no gross sensory deficit Has patient had previous pain injection?: Yes Percent improvement in pain since last injection: 90% Conservative treatment options previously tried: Home exercise plan Length of treatment: Longer than 12 weeks Meds Home Medications and Allergies Home Medications ?Medication ?Instructions ?Recorded ?Confirmed ?Type aspirin 81 mg tablet,delayed 81 mg PO DAILY 12/23/24 04/25/25 History release azelastine 137 mcg (0.1 %) nasal 1 spray intranasal BID 12/23/24 04/25/25 History spray fexofenadine 180 mg tablet 180 mg PO HS 12/23/24 04/25/25 History sertraline 50 mg tablet 50 mg PO DAILY 12/23/24 04/25/25 History albuterol sulfate 90 mcg/actuation See Rx Instructions .Route 12/28/24 04/25/25 Rx aerosol inhaler .COMPLEX #8.5 grams sacubitril 24 mg-valsartan 26 mg 1 tab PO BID #60 tabs 01/02/25 04/25/25 Rx tablet (Entresto) spironolactone 25 mg tablet 25 mg PO DAILY #30 tabs 01/02/25 04/25/25 Rx trazodone 50 mg tablet See Rx Instructions .Route 01/10/25 04/25/25 Rx .COMPLEX #90 tabs finasteride 5 mg tablet See Rx Instructions .Route 01/11/25 04/25/25 Rx .COMPLEX #90 tabs fluticasone 500 mcg-salmeterol 50 1 inh inhalation BID 90 days #60 ea 01/16/25 04/25/25 Rx mcg/dose blistr powdr for inhalation (Wixela Inhub) famotidine 20 mg tablet 20 mg PO HS For GI protection #90 01/18/25 04/25/25 Rx tabs empagliflozin 10 mg tablet 10 mg PO DAILY 30 days #30 tabs 01/22/25 04/25/25 Rx (Jardiance) metoprolol succinate 25 mg 25 mg PO DAILY 30 days #30 tabs 01/22/25 04/25/25 Rx tablet,extended release 24 hr pantoprazole 40 mg tablet,delayed 40 mg PO DAILY 30 days #30 tabs 01/22/25 04/25/25 Rx release (Protonix) rivaroxaban 20 mg tablet 20 mg PO QPMWITHMEAL 30 days #30 01/22/25 04/25/25 Rx tabs rosuvastatin 10 mg tablet 10 mg PO DAILY Cholesterol 01/25/25 04/25/25 History montelukast 10 mg tablet See Rx Instructions .Route 02/02/25 04/25/25 Rx .COMPLEX #90 tabs levothyroxine 112 mcg tablet See Rx Instructions .Route 02/22/25 04/25/25 Rx .COMPLEX #90 tabs naproxen 500 mg tablet See Rx Instructions .Route 04/10/25 04/25/25 Rx .COMPLEX #60 tabs furosemide 40 mg tablet See Rx Instructions .Route 04/17/25 04/25/25 Rx .COMPLEX #30 tabs tamsulosin 0.4 mg capsule See Rx Instructions .Route 04/17/25 04/25/25 Rx .COMPLEX #90 caps gabapentin 300 mg capsule 300 mg PO DAILY #90 caps 04/25/25 Rx New Prescriptions to Start Prescriptions: Allergies Allergy/AdvReac Type Severity Reaction Status Date / Time Sulfa (Sulfonamide Allergy Intermediate Rash Verified 04/03/25 15:32 Antibiotics) Assessment and Plan *Assessment and plan (1) Bilateral knee pain: Status: Acute Category: Medical Code(s): M25.561 - Pain in right knee; M25.562 - Pain in left knee Plan Patient does have chronic knee pain that is going on for longer than 6 months. He did have limited range of motion of his bilateral knees during today's visit. Patient does also have pretty significant swelling in the right knee in comparison to the left. I did discuss with patient due to the fact that he has had the gel injection earlier this year that I would recommend a right infrapatellar nerve block along the right side and a intra-articular knee injection along the left. Risk and benefits were discussed with the patient and he would like to proceed forward with this plan of care. Patient has tried and failed conservative therapy including oral medications, heat and ice, topicals, prior physical therapy and continued at home stretching exercise for longer than 12 weeks that was physician guided. Patient will be scheduled for a right knee infrapatellar nerve block and a left knee intra-articular knee injection. These will be done without fluoroscopic or ultrasound guidance. Will follow-up with him following these injections for improvement. Patient has been instructed to contact the clinic with any concerns before the next appointment. Dr. Thibodeaux has reviewed this note and agrees with this plan of care. This note was dictated using voice recognition software and make contain errors or omissions. All injections are used with Lidocaine, Bupivacaine and dexamethasone. Occasionally urine drug screen is needed to verify patient's compliance with our office pain contract. This is ordered based off specific treatments related to chronic pain with the potential to abuse certain medications.
== END 2025-04-25 23:59 | disposition home or self-care (01) ==
LOC: SC.PAIN 10:01
PROVIDERS: PCP Internal Medicine; Visit Provider Nurse Practitioner Family
DX: M25.561 Pain in right knee (principal); M25.562 Pain in left knee
CPT/HCPCS: 99212; G0463

== ENCOUNTER 2025-05-29 09:14 | Day surgery (SDC) | payer BC, MEDICARE, SELFPAY ==
[2025-05-29 09:30] VITALS: BP 121/66; PULSE 68; RESP 18; O2SAT 99; BMI 27.8
[2025-05-29] MEDS: BUPIVACAINE 0.25% 10ML INJ 25 MG IJ (09:45)
[2025-05-29] MEDS: DEXAMETHASONE 10MG/ML 1ML VIAL 10 MG (09:46)
[2025-05-29] MEDS: LIDOCAINE 1% 5ML PF VIAL 5 ML (09:46)
[2025-05-29 09:47] VITALS: BP 121/66; PULSE 68; RESP 18; O2SAT 99
[2025-05-29 09:48] VITALS: BP 121/66; PULSE 68; RESP 18; O2SAT 99
--- NOTE | 2025-05-29 09:49 | EXP.PAIN.PRO ---
Procedure Date: 05/29/25 Time: 09:45 Anesthesiologist:: Ren Pierre CRNA Complications:: None Pre-procedure Diagnosis:: DJD bilateral knee. Chronic bilateral knee pain. Post-procedure Diagnosis:: Same Indications for Procedure:: Patient is a pleasant 70-year-old male who comes our clinic today for right infrapatellar nerve blocks as well as left intra-articular knee injection of cortisone local anesthetic. Patient describes bilateral knee pain as constant, dull, aching. He rates his pain 7/10. Procedure Details:: Details of the procedure explained to the patient. The patient taken procedure and placed in the sitting position. The over the right knee was cleaned using chlorhexidine as a cleansing solution. Using a 25-gauge inch and half needle the right infrapatellar branch of the saphenous nerve was accessed with ease. After negative aspiration 4 cc of 1% lidocaine +4 cc of 0.25% Marcaine and 10 mg of dexamethasone was injected incrementally. Patient tolerated procedure without difficulty. Dental complications. Details of the procedure explained to the patient. The patient taken procedure room placed in the sitting position. The over the left knee was cleaned using chlorhexidine as a cleansing solution. Using a 22-gauge inch and half needle the left knee joint was accessed from the anterior lateral position. After negative aspiration 4 cc of 1% lidocaine +4 cc of 0.25% Marcaine and 10 mg of dexamethasone was injected. Patient tolerated procedure without difficulty. There are no complications. Plan and Disposition:: Patient was discharged without incident.
[2025-05-29 09:50] VITALS: BP 112/69; PULSE 71; RESP 18; O2SAT 95
== END 2025-05-29 09:50 | disposition home or self-care (01) ==
PROVIDERS: PCP Internal Medicine; Visit Provider Nurse Anesthetist, Certified Registered
DX: M17.0 Bilateral primary osteoarthritis of knee (principal); J44.89 Other specified chronic obstructive pulmonary disease; J84.9 Interstitial pulmonary disease, unspecified; Z88.2 Allergy status to sulfonamides; Z79.82 Long term (current) use of aspirin; Z79.899 Other long term (current) drug therapy
CPT/HCPCS: 20610; 64447; J0665; J1100; J2003

== ENCOUNTER 2025-06-13 13:48 | Outpatient (CLI) | payer BC, MEDICARE, SELFPAY ==
--- NOTE | 2025-06-13 13:53 | CT_ITS ---
FINAL REPORT TECHNIQUE: Thin section axial images were obtained from the lung apices through the upper abdomen without contrast. High resolution images were obtained in the prone and supine positions. Inspiratory and expiratory exams were obtained as well. This study was performed with techniques to keep radiation doses as low as reasonably achievable (ALARA). Individualized dose reduction techniques using automated exposure control or adjustment of mA and/or kV according to the patient's size were employed. CLINICAL HISTORY: .hi-res x3, ILD COMPARISON: Prior CTA of the chest 12/23/2024, prior high-resolution CT of the chest 06/11/2023 FINDINGS: There is a new anterior mediastinal lymph node present, measuring 14 mm in size, with a right paratracheal node measuring 30 mm, was previously 21 mm. There are several AP window nodes which have increased in size, all approximately 1 cm. No pleural or pericardial effusion. The groundglass opacities seen 12/23/2024 have almost completely resolved. There are predominantly subpleural opacities, which are more prominent than seen on the prior HRCT of 2022. Bronchiectasis in the bilateral lower lobes has also slightly progressed. High-resolution images do not demonstrate any significant air trapping. There is honeycomb fibrosis in the inferior most right lower lobe which has progressed since 2022. Limited, unenhanced evaluation of the upper abdomen is without acute abnormality. There is no acute osseous abnormality. IMPRESSION: 1. Interval progression of interstitial lung disease with increased bronchiectasis and fibrosis. 2. Interval progression of mediastinal adenopathy, which is nonspecific but may be reactive or neoplastic. Reviewed, Interpreted and Dictated by Radha Dasilva MD Transcribed by Anu Aguayo Authenticated and [facility]
--- OUTSIDE RECORDS SUMMARY | 2025-06-13 13:53 | XMS_ITS | Encounter Summary ---
Author Organization Healthcare Address [address] [place] [address] Care Team Providers Care Adult Daycare Coordinator Name Role Phone Humberto Peralta MD Primary Care Provider [phone] Cristopher Gray MD Primary Care Provider [phone] Latanya Becker Unavailable [phone] Saima Esparza MD Unavailable [phone] Encounter Details Date Type Department Care Team (Late st Contact Info) Description 04/12/2022 Orders Only External Location [address] [place] [address] Provider, External Social History Tobacco [...] Care Team (Late st Contact Info) Description 10/01/2025 12:00 PM EST Office Visit [place] [facility] [address], [address] [place] [address] Latanya Becker, PA [address] [place] [address] documented as of this encounter [...] on filedocumented in this encounter Care Teams Adult Daycare Coordinator Relationship Specialty Start Date End Date Humberto Peralta MD [address] [place] [address] PCP - General 02/28/21 12/02/22 Cristopher Gray MD [id number] [place] [address] PCP - General 12/14/22 Latanya Becker PA [address] [address] Physician Rotor Balancer Neurosurgery 05/03/23 Saima Esparza MD [address] [place] [address] Referring Physician 05/03/23 documented as of this encounter
--- OUTSIDE RECORDS SUMMARY | 2025-06-13 13:53 | XMS_ITS | Encounter Summary ---
Author Organization Healthcare Address [address] [place] [address] Care Team Providers Care International Logistics Manager Name Role Phone Humberto Peralta MD Primary Care Provider [phone] Cristopher Gray MD Primary Care Provider [phone] Latanya Becker Unavailable Saima Esparza MD Unavailable [phone] Encounter Details Date Type Department Care Team (Late Contact Info) Description 04/03/2022 Orders Only External Location [address] [place] [address] Saima Esparza MD [address] [place], [place] [id number] Social History Tobacco Use Types Packs/Day Years [...] Department Care Team (Late Contact Info) Description 10/01/2025 12:00 PM EST Office Visit [place] [facility] [address] [place] [address] Latanya Becker PA [address] [place] [address] documented as of this encounter [...] on filedocumented in this encounter Care Teams International Logistics Manager Relationship Specialty Start Date End Date Humberto Peralta MD [address] [place] [address] PCP - General 02/28/21 12/02/22 Cristopher Gray MD [address] [place] [address] PCP - General 12/14/22 Latanya Becker PA [address] [id number] Physician Wagon Driller Neurosurgery 05/03/23 Saima Esparza MD [address] [place] [address] Referring Physician 05/03/23 documented as of this encounter
--- OUTSIDE RECORDS SUMMARY | 2025-06-13 13:53 | XMS_ITS | Clinical Summary ---
Author Organization Healthcare Address [address] [place] [address] Care Team Providers Care Bridge Mechanic Name Role Phone Cristopher Gray MD Primary Care Provider [phone] Latanya Becker Unavailable [phone] Saima Esparza MD Unavailable [phone] Allergies Active Allergy Reactions Criticality Noted [...] Visit [place] [facility] [address] [place] [address] Latanya Becker, PA Normal pressure hydrocephalus (CMS/HCC) (Primary Dx) 03/20/2025 9:43 AM EDT - 03/20/2025 11:59 PM EDT Hospital Encounter [facility] [address] [place] [address] Cecy Alston, RN Cardiomyopathy; Chronic obstructive pulmonary disease, unspecified (CMS/HCC); Essential hypertension; Dyspnea on exertion; HFrEF (heart failure with reduced ejection fraction) (CMS/HCC) Discharge Disposition: Home or Self Care 03/20/2025 Travel 03/19/2025 Travel 03/19/2025 Telephone [facility] [address] [place] [id number] Mary Nagy RN from Last 3 Months Family History Medical [...] Visit [place] [facility] [address] [place] [address] Latanya Becker, PA [address] [place] [address] Health Maintenance Due Date Last Done Comments [facility]-Hepatitis C Screening 1955 [facility]-Medicare Annual Wellness (AWV) 1955 [facility]-Infant/Child/Adol SDOH Screenings 1955 [facility]- SDOH Screenings 1971 [facility]-Adult SDOH Screenings 1971 [facility]-DTaP,Tdap,and Td Vaccines (1 - Tdap) 01/25/1972 CT Colonography 1998 Colonoscopy 1998 FIT-DNA 1998 FIT 1998 FOBT 1998 Sigmoidoscopy 1998 [facility]-Colorectal Cancer Screening 1998 [facility]-Zoster Vaccines (2 of 2) 12/02/2018 10/07/2018 [id number] Vaccine (4 - season) 2024 08/20/2021, 03/24/2021, 03/02/2021 [facility]-Influenza Vaccine [...] this topic Medical Devices Implanted Type Area Ingot Passer Device Identifier Shelf Expiration Date Model / Serial / Lot Certas Plus Inline Siphon - [id number] Implanted:Qty: 1 on 12/24/2022 [id number] 08/17/2027 [id number] / / [id number] Catheter Antibiotic Str Vent - [id number] Implanted:Qty: 1 on 12/24/2022 by Jerrell Jarrett MD at [facility] [employer] [facility]-[id number] 09/16/2023 [id number] / / [id number] Procedures Procedure Name Priority Date/Time Associated Diagnosis [...] left ventricular myocardial late gadolinium enhancement. Normal [place] apache T1 mapping and ECV is not suggestive [...] --- Tissue Characterization --- T1 Mapping: Myocardial [place] apache T1: 1053ms Blood pool [place] apache T1: 1581ms Myocardial post contrast T1: 462ms [...] --- Tissue Characterization --- T1 Mapping: Myocardial [place] apache T1: 1053ms Blood pool [place] apache T1: 1581ms Myocardial post contrast T1: 462ms [...] of left ventricular myocardiallate gadolinium enhancement. Normal [place] apache T1 mapping and ECV is notsuggestive of [...] Resu lt [facility] [address] [place] [address] from Last 3 Months Insurance [facility] MEDIC[facility] Advance Directives * Full Code (Latest Code Status on File) Date Activated Date Inactivated Comments 12/24/2022 9:13 AM 12/25/2022 6:51 PM Question Answer Comments Patient has decision-making capacity? Yes Care Teams Bridge Mechanic Relationship Specialty Start Date End Date Cristopher Gray MD [address] [place] [id number] PCP - General 12/14/22 Latanya Becker PA [address] [address] Physician Pretzel Twisting Machine Operator Neurosurgery 05/03/23 Saima Esparza MD [address] [place] [address] Referring Physician 05/03/23
--- OUTSIDE RECORDS SUMMARY | 2025-06-13 13:53 | XMS_ITS | Clinical Summary ---
Author Organization [facility] Address [address] [place] [address] Care Team Providers Care Dog Behaviorist Name Role Phone Cristopher Gray MD Primary Care Provider [phone] Allergies Active Allergy Reactions Criticality Noted Date Comments Sulfa Antibiotics Hives,Rash Low 02/28/2019 Medications albuterol HFA 108 (90 Base) MCG/ACT inhaler 1 Active Aspirin Buf,CaCarb-MgCa rb-MgO, 81 MG TABS aspirin 81 mg tablet Active dilTIAZem ER beads (TIAZAC) 240 MG 24 hr capsule Take 240 mg by mouth daily. 9 Active docusate sodium (COLACE) 100 MG CAPS capsule Take 100 mg by mouth. 0 Active ergocalciferol (ERGOCALCIFEROL ) 1.25 MG (01862 UT) capsule TAKE 1 CAPSULE BY MOUTH ONCE MONTHLY 0 Active finasteride (PROSCAR) 5 MG tablet TAKE 1 TABLET BY MOUTH EVERY DAY 1 Active BREO ELLIPTA 200-25 MCG/INH AEPB inhaler 1 Active gabapentin (NEURONTIN) 300 MG capsule 1 Active guaiFENesin-cod eine 100-10 MG/5ML syrup codeine 10 mg-guaifenesin 100 mg/5 mL oral liquid TAKE 2 TEASPOONS BY MOUTH EVERY 4 6 HOURS NEEDED FOR COUGH Active levothyroxine (SYNTHROID) 100 MCG tablet TAKE 1 TABLET BY MOUTH EVERY MORNING 1 Active montelukast (SINGULAIR) 10 MG tablet 1 Active nitrofurantoin (MACRODANTIN) 50 MG capsule TAKE 1 CAPSULE EVERY DAY 1 Active rosuvastatin (CRESTOR) 10 MG tablet rosuvastatin 10 mg tablet TAKE ONE TABLET BY MOUTH AT BEDTIME 9 Active tamsulosin (FLOMAX) 0.4 MG CAPS 1 Active traZODone (DESYREL) 50 MG tablet TAKE 1 TO 2 TABLETS BY MOUTH EVERY EVENING NEEDED FOR INSOMNIA 1 Active valsartan (DIOVAN) 160 MG tablet TAKE 1 TABLET BY MOUTH EVERY DAY 1 Active Social History Tobacco Use Types Packs/Day Years Used Date Smoking Tobacco: Never Smokeless Tobacco: Never Sex and Gender Information Value Date Recorded Sex Assigned at Not on file Legal Sex Male 1:27 PM EDT Gender Identity Not on file Sexual Orientation Not on file Last Filed Vital Signs Vital Sign Reading Time Taken Comments Blood Pressure 110/64 02/28/2021 1:07 PM EDT Pulse 67 02/28/2021 1:07 PM EDT Temperature 36.6 C (97.8 F) 02/28/2021 1:07 PM EDT Respiratory Rate 18 02/28/2021 1:07 PM EDT Oxygen Saturation 97% 02/28/2021 1:0 7 PM EDT not on his O2 (only wears O2 while active) Inhaled Oxygen Concentration - - Weight 98.9 kg (218 lb) 02/28/2021 1:07 PM EDT Height 180.3 cm (5' 11 ) 02/28/2021 1:0 7 PM EDT Body Mass Index 30.4 02/28/2021 1:07 PM EDT Plan of Treatment Health Maintenance Due Date Last Done Comments CT Colonography 1953 Colonoscopy 1953 Colorectal Cancer Screening 1953 FIT-DNA 1953 FIT 1953 FOBT 1953 Hepatitis C Screening 1955 Sigmoidoscopy 1953 Tdap/Td Vaccine >11 yo (1 - Tdap) 01/25/1972 Pneumococcal Vaccines >50 yo (1 of 1 - PCV) 2003 Shingles (Shingrix) (1 of 2) 2003 Abdominal Aortic Aneurysm (A AA) Screen 2018 Annual SDOH Screening 10/18/2024 Influenza Vaccine (#1) 2025 Haemophilus Influenzae Type B (Hib) Vaccine Aged Out No longer eligible b ased on patient's age to complete this topic Hepatitis A (HepA) Vaccine Aged Out N o longer eligible based on patient's age to complete this topic Hepatitis B (HepB) Vaccine Aged Out N o longer eligible based on patient's age to complete this topic Meningococcal ACWY Aged Out No longer eligible based on patient's age to complete this topic Polio (IPV) Aged Out No longer eligi ble based on patient's age to complete this topic Rotavirus (RV) Vaccine Aged Out No lo nger eligible based on patient's age to complete this topic Insurance [facility] MEDICARE Care Teams Dog Behaviorist Relationship Specialty Start Date End Date Cristopher Gray MD [address] [place] [address] [facility] [address] PCP - General Internal Medicine 02/19/21
--- OUTSIDE RECORDS SUMMARY | 2025-06-13 13:53 | XMS_ITS | Clinical Summary ---
Author Organization [facility] ystem Address [address] [place] [address] Care Team Providers Care Sprinkler Helper Name Role Phone Cristopher Gray MD Primary Care Provider Allergies Active Allergy Reactions Criticality Noted Date Comments Sulfa Antibiotics Hives,Rash Low 02/28/2019 Medications rosuvastatin (CRESTOR) 10 MG tablet Take 10 mg by mouth every night at bedtime. 1 11/27/2018 Active diltiaZEM CD (CARDIZEM CD) 240 MG 24 hr capsule Take 240 mg by mouth Daily. 1 12/13/2018 Active valsartan (DIOVAN) 160 MG tablet Take 160 mg by mouth Daily. 1 02/20/2019 Active tamsulosin (FLOMAX) 0.4 MG capsule 24 hr capsule Take 1 capsule by mouth every night at bedtime. 1 02/03/2019 Active levothyroxine (SYNTHROID, LEVOTHROID) 100 MCG tablet Take 112 mcg by mouth Daily. 1 02/19/2019 Active finasteride (PROSCAR) 5 MG tablet Take 5 mg by mouth Daily. 5 12/17/2018 Active sertraline (ZOLOFT) 50 MG tablet Take 50 mg by mouth Daily. 1 11/22/2018 Active aspirin 81 MG EC tablet Take 81 mg by mouth Daily. Active fluticasone (FLONASE) 50 MCG/ACT nasal spray 2 sprays into the nostril(s) as directed by provider 2 (Two) Times a Day. Active montelukast (SINGULAIR) 10 MG tablet Take 10 mg by mouth Every Night. Active traZODone (DESYREL) 50 MG tablet Take 50 mg by mouth Every Night. Active gabapentin (NEURONTIN) 300 MG capsule Take 600 mg by mouth 2 (Two) Times a Day. Active nitrofurantoin (MACRODANTIN) 50 MG capsule Take 50 mg by mouth Daily. Active fexofenadine (TIFFANIE) 180 MG tablet Take 180 mg by mouth Daily. Active Fluticasone Furoate-Vilante rol (BREO ELLIPTA IN) Inhale 1 puff Daily. Active multivitamin with minerals tablet tablet Take 1 tablet by mouth Daily. Active TRIAMCINOLONE ACETONIDE,NASAL , NA into the nostril(s) as directed by provider 2 (Two) Times a Day. Active Polyethyl Glycol-Propyl Glycol (SYSTANE FREE OP) Apply to eye(s) as directed by provider As Needed. Active Active Problems Problem Noted Date Diagnosed Date Spinal stenosis of lumbar re gion with neurogenic claudication 11/10/2019 Degenerative disc disease, lumbar 02/28/2019 Degenerative lumbar spinal stenosis 02/28/2019 Numbness and tingling of left leg 02/28/2019 Acute serous otitis media 06/12/2016 Mixed conductive and sensorineural hearing loss 06/12/2016 Lower urinary tract symptoms due to benign prostatic hyperplasia 10/15/2015 Microscopic hematuria 10/15/2015 Raised prostate specific antigen 10/15/2015 Arthritis Immunizations Immunization Administration Dates Next Due Fluzone High-Dose 65+YRS 06/14/2019 Fluzone High-Dose 65+yrs 07/22/2020 Hepatitis A 06/14/2019,09/16/2018 Pneumococcal Conjugate 13-Valent (PCV13) 017 Pneumococcal Polysaccharide (PPSV23) 07/22/2018 Shingrix 08/04/2019,10/07/2018 Family History Medical History Relation Name Comments Heart disease Brother Lung disease Mother Cancer Sister Relation Name Status Comments Brother Alive Father Mother Sister Social History Tobacco Use Types Packs/Day Years Used Date Smoking Tobacco: Never Smokeless Tobacco: Never Alcohol Use Standard Drinks/Week Comments No 0 (1 standard drink = 0.6 oz pur e alcohol) AUDIT-C Answer Date Recorded Q1: How often do you have a drink containing alc ohol? Never 11/05/2020 Average Number of Drinks Not on file 021 Frequency of Binge Drinking Not on file 10/18 Abuse Screen Answer Date Recorded Unsafe at Home or Work/School Not on file Feels Threatened by Someone? Not on file 07/2023 Does Anyone Keep You from Co ntacting Others or Doint Things Outside the Home? Not on file 07/27/2023 Physical Sign of Abuse Present Not on file 1 Housing Stability Answer Date Recorded Current Living Arrangements Not on file 07/18 Potentially Unsafe Housing Conditions Not on samuel e 07/27/2023 Family and Community Support Answer Florentino e Recorded Help with Day-to-Day Activities Not on file 07/27/2023 Lonely or Isolated Not on file 07/27/2023 Employment Answer Date Recorded Do you want help finding or keeping work or a regine b? Not on file 07/27/2023 Disabilities Answer Date Recorded Concentrating, Remembering, or Making Decisions Difficulty Not on file 07/27/2023 Doing Errands Independently Difficulty Not on fi le 07/27/2023 Education Answer Date Recorded Help with school or training? Not on file Preferred Language Not on file 07/27/2023 Sex and Gender Information Value Date Recorded Sex Assigned at Not on file Legal Sex Male 1:50 PM EDT Gender Identity Not on file Sexual Orientation Not on file Last Filed Vital Signs Vital Sign Reading Time Taken Comments Blood Pressure 124/88 06/16/2022 8:58 AM EDT Pulse 64 06/16/2022 8:58 AM EDT Temperature 36.4 C (97.5 F) 04/12/2022 12:38 PM EDT Respiratory Rate 18 04/12/2022 7:54 PM EDT Oxygen Saturation 95% 04/12/2022 7:54 PM EDT Inhaled Oxygen Concentration - - Weight 97.5 kg (215 lb) 06/16/2022 8:58 AM EDT Height 180.3 cm (5' 11 ) 06/16/2022 8:58 AM EDT Body Mass Index 29.99 06/16/2022 8:58 AM EDT Plan of Treatment Health Maintenance Due Date Last Done Comments TDAP/TD VACCINES (1 - Tdap) 01/25/1972 COLOGUARD 1998 COLON CANCER SCREENING 5 YEA R SIGMOIDOSCOPY 1998 COLONOSCOPY 1998 COLOR[address]AL CANCER SCREENING 1998 CT COLONOGRAPHY 1998 FECAL OCCULT BLOOD TEST 1998 FIT Testing (1 year) 1998 AAA SCREEN ONCE 2018 ANNUAL PHYSICAL 02/28/2019 HEPATITIS C SCREENING 02/28/2019 COVID-19 Vaccine ( season) 2024 08/20/2021, 03/24/2021, 03/02/2021 INFLUENZA VACCINE 07/18/2025 07/22/2020, 06/14/2019 Pneumococcal Vaccine 50+ Completed 07/22/2018, 01/16 ZOSTER VACCINE Completed 08/04/2019, 10/07/2018 Medical Devices Implanted Type Area Captain Fishing Vessel Device Identifier Shelf Expiration Date Model / Serial / Lot Kt Grft Bone Inf Sm - [id number] Implanted:Qty: 1 on 11/10/2019 by Carlito Acevedo MD at [facility] Implant Spine Lumbar [employer] 06/17/2021 [id number] / / [id number] Byron Peek 6.36n05du - [id number] Implanted:Qty: 1 on 11/10/2019 by Carlito Acevedo MD at [facility] Implant Spine Lumbar [employer] 01/20/2024 [id number] / / [id number] Byron Peek 6.48w53uq - [id number] Implanted:Qty: 1 on 11/10/2019 by Carlito Acevedo MD at [facility] Implant Spine Lumbar [employer] 01/20/2024 [id number] / / [id number] Paste Dbm Barak Pls [facility] - [id number] - [id number] Implanted:Qty: 1 on 11/10/2019 by Carlito Acevedo MD at [facility] Implant Spine Lumbar [employer] 05/24/2021 [id number] / [id number] / Paste Dbm Clarinda Pls 1c - [id number] - [id number] Implanted:Qty: 1 on 11/10/2019 by Carlito Acevedo MD at [facility] Implant Spine Lumbar [employer] 05/24/2021 [id number] / [id number] / Scrw Blu Cdh Legacy Mas Sheets 6.5x45mm - [id number] Implanted:Qty: 1 on 11/10/2019 by Carlito Acevedo MD at [facility] Implant Spine Lumbar [employer] 05/09/2024 [id number] / / [id number] Scrw Blu Cdh Legacy Sheets 6.5x50mm - [id number] Implanted:Qty: 1 on 11/10/2019 by Carlito Acevedo MD at [facility] Implant Spine Lumbar [employer] 06/15/2024 [id number] / / [id number] Scrw Blu Cdh Legacy Sheets 6.5x50mm - [id number] Implanted:Qty: 1 on 11/10/2019 by Carlito Acevedo MD at [facility] Implant Spine Lumbar [employer] 06/13/2024 [id number] / / [id number] Scrw Blu Cdh Legacy Mas Sheets 6.5x45mm - [id number] Implanted:Qty: 1 on 11/10/2019 by Carlito Acevedo MD at [facility] Implant Spine Lumbar [employer] 03/17/2022 [id number] / / [id number] Scrw Peek Ext Or Extrnl Hex - [id number] Implanted:Qty: 4 on 11/10/2019 by Carlito Acevedo MD at [facility] Implant Spine Lumbar [employer] [id number] / / N/A Cage Wave D 6d [id number] - [id number] Implanted:Qty: 2 on 11/10/2019 by Carlito Acevedo MD at [facility] Implant Spine Lumbar [employer] 01/11/2027 [id number] / / [id number] 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 Subscriber Plan / Payer (Ef fective 2018-Present) Name:Toan Bearden II Relation to Subscriber:Self Name:Toan Bearden II Payer ID:[id number] (NAIC) Type:Not on file Address: [address] [place] [id number] MEDICARE A & B Advance Directives * CPR (Attempt to Resuscitate) (Latest Code Status on File) Date Activated Date Inactivated Comments 11/10/2019 1:05 PM 11/16/2019 6:02 PM Question Answer Comments Code Status (Patient has no pulse and is not breathing): CPR (Attempt to Resuscitate) Medical Interventions (Patie nt has pulse or is breathing): Full Level Of Support Discussed With: Patient Care Teams Sprinkler Helper Relationship Specialty Start Date End Date Cristopher Gray MD [address] [facility] [address] [place] [address] PCP - General Internal Medicine 07/02/20
[2025-06-13] MEDS: ALBUTEROL 0.083% 2.5 MG/3 ML NEB IH (15:48)
--- NOTE | 2025-06-13 15:48 | PC.NURSE ---
PFT completed without incident. Albuterol 0.083% given via HHN, per protocol, Pt tolerated tx well. 6 Minute Walk test complete. Pt tolerated tx well.
== END 2025-06-13 23:59 | disposition home or self-care (01) ==
LOC: RAD 13:50
PROVIDERS: PCP Internal Medicine; Visit Provider Internal Medicine Pulmonary Disease
DX: J47.1 Bronchiectasis with (acute) exacerbation (principal); J84.10 Pulmonary fibrosis, unspecified; J44.9 Chronic obstructive pulmonary disease, unspecified
CPT/HCPCS: 71250; 94060; 94618; 94726; 94729

== ENCOUNTER 2025-06-26 09:35 | Outpatient (CLI) | payer BC, MEDICARE, SELFPAY ==
[2025-06-26 14:37] LABS: Hematocrit 50.5 % (42.0-52.0); Hemoglobin 16.0 g/dL (14.1-18.0); Immature Granulocytes % 1.0 %; Mean Corpuscular HGB Conc 31.7 g/dL (31.8-35.4); Mean Corpuscular Hemoglobin 28.1 pg (27.0-31.2); Mean Corpuscular Volume 88.8 fl (80-94); Nucleated Red Blood Cells % 0 %; Platelet Count 203 K/mm3 (142-424); Red Blood Count 5.69 M/mm3 (4.60-6.20); Red Cell Distribution Width-SD 45.0 fL; White Blood Count 7.7 K/mm3 (4.8-10.8)
[2025-06-26 15:23] LABS: Hemoglobin A1C 6.7 % (4.0-6.0)
[2025-06-26 15:54] LABS: Albumin Level 4.2 g/dl (3.5-5.0); Chloride 101 mmol/L (98-107); Potassium 5.1 mmoL/L (3.5-5.1); Sodium 141 mmol/L (136-145)
[2025-06-26 15:57] LABS: Alanine Aminotransferase 20 U/L (12-78); Albumin/Globulin Ratio 1.8 (1.1-1.8); Alkaline Phosphatase 72 U/L (38-126); Anion Gap 15.1 mEq/L (5-15); Aspartate Amino Transferase 28 U/L (17-59); Bilirubin,Total 0.6 mg/dl (0.2-1.3); Blood Urea Nitrogen 17 mg/dl (9-20); Calcium 9.6 mg/dl (8.4-10.2); Carbon Dioxide 30 mmol/L (22.0-30.0); Cholesterol 133 mg/dl (140-200); Creatinine,Serum 0.90 mg/dl (0.66-1.25); Estimated Glomerular Filt Rate 83 ml/min (>60); GFR (African American) 100 ML/MIN (>60); Globulin 2.3 g/dL (1.3-3.2); Glucose 113 mg/dl (74-100); Total Protein,Serum 6.5 g/dl (6.3-8.2); Triglycerides 134 mg/dl (30-150)
[2025-06-26 15:58] LABS: HDL Cholesterol 43 mg/dl (40-60)
[2025-06-26 16:28] LABS: Thyroid Stimulating Hormone 1.85 uIU/mL (0.465-4.68)
--- OUTSIDE RECORDS SUMMARY | 2025-06-27 09:42 | XMS_ITS | Clinical Summary ---
Author Organization [facility] ystem Address [address] [place] [address] Care Team Providers Care Talent Acquisition Program Manager Name Role Phone Cristopher Gray MD Primary Care Provider [phone] Allergies Active Allergy Reactions Criticality Noted Date [...] C SCREENING 02/28/2019 COVID-19 Vaccine ( season) 2025 08/20/2021, 03/24/2021, 03/02/2021 INFLUENZA VACCINE 07/18/2025 07/22/2020, 06/14/2019 Pneumococcal Vaccine 50+ Completed 07/22/2018, 01/16 ZOSTER VACCINE Completed 08/04/2019, 10/07/2018 Medical Devices Implanted Type Area Mine Engineer Device Identifier Shelf Expiration Date Model / Serial / Lot Kt Grft Bone Inf Sm - [id number] Implanted:Qty: 1 on 11/10/2019 by Carlito Acevedo MD at [facility] Implant Spine Lumbar [employer] 06/17/2021 [id number] / / [id number] Byron Peek 6.84z32mj - [id number] Implanted:Qty: 1 on 11/10/2019 by Carlito Acevedo MD at [facility] Implant Spine Lumbar [employer] 01/20/2024 [id number] / / [id number] Byron Peek 6.84j97bo - [id number] Implanted:Qty: 1 on 11/10/2019 by Carlito Acevedo MD at [facility] Implant Spine Lumbar [employer] 01/20/2024 [id number] / / [id number] Paste Dbm Barak Pls [facility] - [id number] - [id number] Implanted:Qty: 1 on 11/10/2019 by Carlito Acevedo MD at [facility] Implant Spine Lumbar [employer] 05/24/2021 [id number] / [id number] / Paste Dbm Barak Pls 1c - [id number] - [id number] Implanted:Qty: 1 on 11/10/2019 by Carlito Acevedo MD at [facility] Implant Spine Lumbar [employer] 05/24/2021 [id number] / [id number] / Scrw Blu Cdh Legacy Mas Sheets 6.5x45mm - [id number] Implanted:Qty: 1 on 11/10/2019 by Carlito Acevedo MD at [facility] Implant Spine Lumbar [employer] 05/09/2024 [id number] / / [id number] Scrw Blu Cdh Legacy Sheets 6.5x50mm - [id number] Implanted:Qty: 1 on 11/10/2019 by Carlito Acevedo MD at [facility] Implant Spine Lumbar [employer] 06/15/2024 [id number] / / [id number] Scrw Blu Cdh Legacy Sheets 6.5x50mm - [id number] Implanted:Qty: 1 on 11/10/2019 by Carlito Acevedo MD at [facility] Implant Spine Lumbar [employer] 06/13/2024 [id number] / / [id number] Scrw Blu Cdh Legacy Mas Sheets 6.5x45mm - [id number] Implanted:Qty: 1 on 11/10/2019 by Carlito Acevedo MD at [facility] Implant Spine Lumbar [employer] 03/17/2022 [id number] / / [id number] Scrw Peek Ext Or Extrnl Hex - [id number] Implanted:Qty: 4 on 11/10/2019 by Carlito Acevedo MD at [facility] Implant Spine Lumbar [employer] [id number] / / N/A Cage Wave D 6d 65o17wo - [id number] Implanted:Qty: 2 on 11/10/2019 by Carlito Acevedo MD at [facility] Implant Spine Lumbar [employer] 01/11/2027 [id number] / / [id number] 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 Subscriber Plan / Payer (Ef fective 2018-Present) Name:Toan Bearden II Relation to Subscriber:Self Name:Toan Bearden II Payer ID:[id number] (NAIC) Type:Not on file Address: [address] [place] [id number] MEDICARE A & B Advance Directives * CPR (Attempt to Resuscitate) (Latest Code Status on File) Date Activated Date Inactivated Comments 11/10/2019 1:05 PM 11/16/2019 6:02 PM Question Answer Comments Code Status (Patient has no pulse and is not breathing): CPR (Attempt to Resuscitate) Medical Interventions (Patie nt has pulse or is breathing): Full Level Of Support Discussed With: Patient Care Teams Talent Acquisition Program Manager Relationship Specialty Start Date End Date Cristopher Gray MD [address] [facility] [address] [place] [address] PCP - General Internal Medicine 07/02/20
--- OUTSIDE RECORDS SUMMARY | 2025-06-27 09:42 | XMS_ITS | Encounter Summary ---
Author Organization Healthcare Address [address] [place] [address] Care Team Providers Care Clinical Nurse Name Role Phone Humberto Peralta MD Primary Care Provider [phone] Cristopher Gray MD Primary Care Provider [phone] Latanya Becker Unavailable Saima Esparza MD Unavailable [phone] Encounter Details Date Type Department Care Team (Late Contact Info) Description 04/03/2022 Orders Only External Location [address] [place] [address] Saima Esparza MD [address] [place], [place] [id number] Social History Tobacco Use Types Packs/Day Years [...] Visit [place] [facility] [address], [address] [place] [address] Latanya Becker PA [address] [place] [address] documented as of this encounter [...] on filedocumented in this encounter Care Teams Clinical Nurse Relationship Specialty Start Date End Date Humberto Peralta MD [address] [place] [address] PCP - General 02/28/21 12/02/22 Cristopher Gray MD [address] [place] [address] [place] [address] PCP - General 12/14/22 Latanya Becker PA [address] [phone] Physician Shoe Associate Neurosurgery 05/03/23 Saima Esparza MD [address] [place] [address] Referring Physician 05/03/23 documented as of this encounter
--- OUTSIDE RECORDS SUMMARY | 2025-06-27 09:42 | XMS_ITS | Encounter Summary ---
Author Organization Healthcare Address [address] [place] [address] Care Team Providers Care Milling Operator Name Role Phone Humberto Peralta MD Primary Care Provider [phone] Cristopher Gray MD Primary Care Provider [phone] Latanya Becker Unavailable [phone] Saima Esparza MD Unavailable [phone] Encounter Details Date Type Department Care Team (Late st Contact Info) Description 04/12/2022 Orders Only External Location [address] [place] [address] Provider, External Social History Tobacco [...] Visit [place] [facility] [address], [address] [place] [address] Latanya Becker, PA [address] [place] [address] documented as of this encounter [...] on filedocumented in this encounter Care Teams Milling Operator Relationship Specialty Start Date End Date Humberto Peralta MD [address] [place] [address] PCP - General 02/28/21 12/02/22 Cristopher Gray MD [address] [place] [address] [place] [address] PCP - General 12/14/22 Latanya Becker PA [address] [address] Physician Relief Worker Neurosurgery 05/03/23 Saima Esparza MD [address] [place] [address] Referring Physician 05/03/23 documented as of this encounter
--- OUTSIDE RECORDS SUMMARY | 2025-06-27 09:42 | XMS_ITS | Clinical Summary ---
Author Organization Healthcare Address [address] [place] [address] Care Team Providers Care Central Service Supply Distributor Name Role Phone Cristopher Gray MD Primary Care Provider Latanya Becker Unavailable [phone] Saima Esparza MD Unavailable [phone] Allergies Active Allergy Reactions Criticality Noted [...] 12/25/2022 NPH (normal pressure hydrocephalus) 12/14/2022 12/25/2022 Family History Medical History Relation Name Comments [...] Visit [place] [facility] [address], [address] [place] [address] Latanya Becker, PA [address] [place] [address] Health Maintenance Due Date Last Done Comments [facility]-Hepatitis C Screening 1955 [facility]-Medicare Annual Wellness (AWV) 1955 [facility]-/Child/Adol SDOH Screenings 1955 [facility]- SDOH Screenings 1971 [facility]-Adult SDOH Screenings 1971 [facility]-DTaP,Tdap,and Td Vaccines (1 - Tdap) 01/25/1972 CT Colonography 1998 Colonoscopy 1998 FIT-DNA 1998 FIT 1998 FOBT 1998 Sigmoidoscopy 1998 [facility]-Colorectal Cancer Screening 1998 [facility]-Zoster Vaccines (2 of 2) 12/02/2018 10/07/2018 [id number] Vaccine (4 - season) 2025 08/20/2021, 03/24/2021, 03/02/2021 [facility]-Influenza Vaccine (#1) 06/18/202508/07, [...] this topic Medical Devices Implanted Type Area Sales Representative Education Courses Device Identifier Shelf Expiration Date Model / Serial / Lot Certas Plus Inline Siphon - [id number] Implanted:Qty: 1 on 12/24/2022 by Jerrell Jarrett MD at [facility] [employer] Tee-[id number] 08/17/2027 [id number] / / [id number] Catheter Antibiotic Str Vent - [id number] Implanted:Qty: 1 on 12/24/2022 by Jerrell Jarrett MD at [facility] [employer] Tee-[id number] 09/16/2023 [id number] / / [id number] Insurance [employer] MEDICARE Advance Directives * Full Code (Latest Code Status on File) Date Activated Date Inactivated Comments 12/24/2022 9:13 AM 12/25/2022 6:51 PM Question Answer Comments Patient has decision-making capacity? Yes Care Teams Central Service Supply Distributor Relationship Specialty Start Date End Date Cristopher Gray MD [address] [facility] [address] [place] [address] PCP - General 12/14/22 Latanya Becker PA [address] [address] Physician Senior Director Insight Neurosurgery 05/03/23 Saima Esparza MD [address] [place] [address] Referring Physician 05/03/23
--- OUTSIDE RECORDS SUMMARY | 2025-06-27 09:42 | XMS_ITS | Clinical Summary ---
Author Organization [facility] Address [address] [place] [address] Care Team Providers Care Technician Helper Instrument Name Role Phone Cristopher Gray MD Primary Care Provider [phone] Allergies Active Allergy Reactions Criticality Noted Date [...] 0 Active ergocalciferol (ERGOCALCIFEROL ) 1.25 MG (19401 UT) capsule TAKE 1 CAPSULE BY MOUTH [...] Height 180.3 cm (5' 11 ) 02/28/2021 1: 07 PM EDT Body Mass Index 30.4 02/28/2021 [...] patient's age to complete this topic Insurance [employer] MEDICARE Care Teams Technician Helper Instrument Relationship Specialty Start Date End Date Cristopher Gray MD [address] [place] [address] [facility] [place] [address] PCP - General Internal Medicine 02/19/21
== END 2025-06-26 23:59 ==
LOC: LAB.DROPOF 06-27 09:36
PROVIDERS: PCP Internal Medicine; Visit Provider Internal Medicine
DX: E03.9 Hypothyroidism, unspecified (principal); E11.59 Type 2 diabetes mellitus with other circulatory complications; I11.0 Hypertensive heart disease with heart failure; I50.20 Unspecified systolic (congestive) heart failure; I48.91 Unspecified atrial fibrillation; E78.5 Hyperlipidemia, unspecified
CPT/HCPCS: 80053; 80061; 82043; 82570; 83036; 84443; 85025

== ENCOUNTER 2025-07-18 12:37 | Outpatient (CLI) | payer BC, MEDICARE, SELFPAY ==
--- OUTSIDE RECORDS SUMMARY | 2025-07-18 12:46 | XMS_ITS | Clinical Summary ---
Author Organization Healthcare Address [address] [place] [address] Care Team Providers Care Senior Cyber Security Analyst Name Role Phone Cristopher Gray MD Primary Care Provider [phone] Latanya Becker Unavailable [phone] Saima Esparza MD Unavailable [phone] Allergies Active Allergy Reactions Criticality Noted [...] Visit [place] [facility] [address], [address] [place] [address] Latanya Becker, PA [address] [place] [address] Health Maintenance Due Date Last Done Comments [facility]-Hepatitis C Screening 1955 [facility]-Medicare Annual Wellness (AWV) 1955 [facility]-/Child/Adol SDOH Screenings 1953 [facility]- SDOH Screenings 1971 [facility]-Adult SDOH Screenings 1971 [facility]-DTaP,Tdap,and Td Vaccines (1 - Tdap) 01/25/1972 CT Colonography 1998 Colonoscopy 1998 FIT-DNA 1998 FIT 1998 FOBT 1998 Sigmoidoscopy 1998 [facility]-Colorectal Cancer Screening 1998 [facility]-Zoster Vaccines (2 of 2) 12/02/2018 10/07/2018 [id number] Vaccine (4 - season) 2025 08/20/2021, 03/24/2021, [...] this topic Medical Devices Implanted Type Area Brick Extruder Operator Device Identifier Shelf Expiration Date Model / Serial / Lot Certas Plus Inline Siphon - [id number] Implanted:Qty: 1 on 12/24/2022 by Jerrell Jarrett MD at [facility] Tee-[id number] 08/17/2027 [id number] / / [id number] Catheter Antibiotic Str Vent - [id number] Implanted:Qty: 1 on 12/24/2022 by Jerrell Jarrett MD at [facility] [employer] Tee-[id number] 09/16/2023 [id number] / / [id number] [place] [address] Advance Directives * Full Code (Latest Code Status on File) Date Activated Date Inactivated Comments 12/24/2022 9:13 AM 12/25/2022 6:51 PM Question Answer Comments Patient has decision-making capacity? Yes Care Teams Senior Cyber Security Analyst Relationship Specialty Start Date End Date Cristopher Gray MD [address] [facility] [address] [place] [address] PCP - General 12/14/22 Latanya Becker PA [address] [address] Physician Rock Dust Sprayer Neurosurgery 05/03/23 Saima Esparza MD [address] [place] [address] Referring Physician 05/03/23
--- OUTSIDE RECORDS SUMMARY | 2025-07-18 12:46 | XMS_ITS | Encounter Summary ---
Author Organization Healthcare Address [address] [place] [address] Care Team Providers Care Coal Shooter Name Role Phone Humberto Peralta MD Primary Care Provider [phone] Cristopher Gray MD Primary Care Provider [phone] Latanya Becker Unavailable Saima Esparza MD Unavailable [phone] Encounter Details Date Type Department Care Team (Late Contact Info) Description 04/03/2022 Orders Only External Location [address] [place] [address] Saima Esparza MD [address] [place], [place] [id number] Social History Tobacco Use Types Packs/Day Years [...] Visit [place] [facility] [address], [address] [place] [address] Latanya Becker PA [address] [place] [address] documented as of this encounter [...] on filedocumented in this encounter Care Teams Coal Shooter Relationship Specialty Start Date End Date Humberto Peralta MD [address] [place] [address] PCP - General 02/28/21 12/02/22 Cristopher Gray MD [address] [place] [address] [place] [address] PCP - General 12/14/22 Latanya Becker PA [address] [phone] Physician Mud Boss Neurosurgery 05/03/23 Saima Esparza MD [address] [place] [address] Referring Physician 05/03/23 documented as of this encounter
--- OUTSIDE RECORDS SUMMARY | 2025-07-18 12:47 | XMS_ITS | Encounter Summary ---
Author Organization Healthcare Address [address] [place] [address] Care Team Providers Care Helper Steel Fabrication Name Role Phone Humberto Peralta MD Primary Care Provider [phone] Cristopher Gray MD Primary Care Provider [phone] Latanya Becker Unavailable [phone] Saima Esparza MD Unavailable [phone] Encounter Details Date Type Department Care Team (Late st Contact Info) Description 04/12/2022 Orders Only External Location [address] [place] [address] Provider, External Social History Tobacco [...] Visit [place] [facility] [address], [address] [place] [address] Latanya Becker, PA [address] [place] [address] documented as of this encounter [...] on filedocumented in this encounter Care Teams Helper Steel Fabrication Relationship Specialty Start Date End Date Humberto Peralta MD [address] [place] [address] PCP - General 02/28/21 12/02/22 Cristopher Gray MD [address] [place] [address] [place] [address] PCP - General 12/14/22 Latanya Becker PA [address] [address] Physician Forensic Engineer Neurosurgery 05/03/23 Saima Esparza MD [address] [place] [address] Referring Physician 05/03/23 documented as of this encounter
--- OUTSIDE RECORDS SUMMARY | 2025-07-18 12:47 | XMS_ITS | Data Portability ---
Author Organization [employer] [facility] Address [address] [place] [address] Care Team Providers Care Neuropathologist Name Role Phone TOPHER DEMPSEY Primary Care Provider Assessment Encounter Date Assessment Date Assessment LastModified by Organization Details LastModified Time 02/07/2024 02/07/2024 Patient presents with symptoms of UTI. Results of dipstick were positive for UTI. Advised to drink clear fluids, Tylenol for pain and take prescribed medications as instructed. Patient encouraged to follow up within 1 week if not improving. [email or web address] Not available 02/07/2024 10:09:39 Plan of Treatment Reminders Order Date Submit Date Provider Last Modified By Organization Details Last Modified Time Details Appointments None recorded. Lab urinalysis, dipstick 2023 024 [email or web address] 5 [facility], [address] [place], [address], 4 10:11:37 urinalysis, dipstick 2022 023 [email or web address] 5 [facility], [address] [place], [address], 3 09:07:18 Referral None recorded. Procedures None recorded. Surgeries None recorded. Imaging None recorded. Medication Orders ciprofloxac in 500 mg tablet 2023 024 [id number], [address] [place], [address], 4 10:11:38 nystatin 100,000 unit/mL oral suspension 2023 024 [facility], [address] [place], [address], 4 13:17:59 Zithromax Z-Reji 250 mg tablet 2023 024 [facility], [address] [place], [address], 4 09:34:12 Augmentin 875 mg-125 mg tablet 2023 024 [facility], [address] [place], [address], 10:30:18 Patient TargetsNo targets recorded. Patient Instructions Encounter Date Encounter Id Patient Instructions Last Modified By Organization Details Last Modified Time 07/01/2023 [id number] nutrition [email or web address] Not available 06/18 10:29:48 exercise [email or web address] Not available 07/01 10:29:48 10/19/2023 [id number] eating healthy foods: care instructions [email or web address] Not available 10/19/2023 10:20:51 exercise Not available 10/19 10:20:51 11/22/2023 [id number] eating healthy foods: care instructions [email or web address] Not available 11/23/2023 18:27:37 exercise [email or web address] Not available 11/23 18:27:37 02/07/2024 [id number] eating healthy foods: care instructions [email or web address] Not available 02/07/2024 10:11:35 walking for exercise: care instructions [email or web address] Not available 02/07/2024 10:11:35 Reason for Referral None Reported. Results Created Date Observation Date Name Description Value Unit Range Abnormal Flag Note LastModifiedBy Organization Detail LastModifiedTime 01/13/20 23 01/12/2023 urina lysis , dipst ick Leukocytes Negati ve Not Available [facility] [address] [place], [address], 01/12/2023 09:52:20 01/13/20 23 01/12/2023 urina lysis , dipst ick Nitrite negati ve Not Available [facility] [address] [place] [address], [phone], 01/12/2023 09:52:20 01/13/20 23 01/12/2023 urina lysis , dipst ick Urobilinogen .2 Not Available [facility] [address] [place] [address], [phone], 01/12/2023 09:52:20 01/13/20 23 01/12/2023 urina lysis , dipst ick Protein Negati ve Not Available [facility] [address] [place] [address], [address], 01/12/2023 09:52:20 01/13/20 23 01/12/2023 urina lysis , dipst ick pH 6.0 Not Available [facility] [address] [place] [address], [address], 01/12/2023 09:52:20 01/13/20 23 01/12/2023 urina lysis , dipst ick Blood Negati ve Not Available [facility] [address] [place] [address], [address], 01/12/2023 09:52:20 01/13/20 23 01/12/2023 urina lysis , dipst ick Specific [place] 1.030 Not Available [facility] [address] [place] [address], [address], 01/12/2023 09:52:20 01/13/20 23 01/12/2023 urina lysis , dipst ick Ketone Negati ve Not Available [facility] [address] [place] [address], [phone], 01/12/2023 09:52:20 01/13/20 23 01/12/2023 urina lysis , dipst ick Bilirubin Negati ve Not Available [facility] [address] [facility], [place], [address], 01/12/2023 09:52:20 01/13/20 23 01/12/2023 urina lysis , dipst ick Glucose Negati ve Not Available [facility] [address] [facility], [place], [address], 01/12/2023 09:52:20 01/13/20 23 01/12/2023 urina lysis , dipst ick Appearance Clear Not Available [facility] [address] [place] [address], [phone], 01/12/2023 09:52:20 01/13/20 23 01/12/2023 urina lysis , dipst ick Color Dark Yellow Not Available [facility] [place] [facility] [address] [place] [address], [place], [address], 01/12/2023 09:52:20 02/07/20 24 02/07/2024 urina lysis , dipst ick Leukocytes Modera te Not Available [facility] [address] [facility], [place], [address], 02/07/2024 09:34:29 02/07/20 24 02/07/2024 urina lysis , dipst ick Nitrite negati ve Not Available [facility] [address] [facility], [place], [address], 02/07/2024 09:34:29 02/07/20 24 02/07/2024 urina lysis , dipst ick Urobilinogen .2 Not Available [facility] [address] [facility], [place], [address], 02/07/2024 09:34:29 02/07/20 24 02/07/2024 urina lysis , dipst ick Protein Negati ve Not Available [facility] [address] [facility], [place], [address], 02/07/2024 09:34:29 02/07/20 24 02/07/2024 urina lysis , dipst ick pH 5.0 Not Available [facility] [address] [facility], [place], [address], 02/07/2024 09:34:29 02/07/20 24 02/07/2024 urina lysis , dipst ick Blood Small Not Available [facility] [address] [facility], [place], [address], 02/07/2024 09:34:29 02/07/20 24 02/07/2024 urina lysis , dipst ick Specific [place] 1.030 Not Available [facility] [address] [facility], [place], [address], 02/07/2024 09:34:29 02/07/20 24 02/07/2024 urina lysis , dipst ick Ketone Negati ve Not Available [facility] [address] [facility], [place], [address], 02/07/2024 09:34:29 02/07/20 24 02/07/2024 urina lysis , dipst ick Bilirubin Negati ve Not Available [facility] [address] [facility], [place], [address], 02/07/2024 09:34:29 02/07/20 24 02/07/2024 urina lysis , dipst ick Glucose Negati ve Not Available [facility] [address] [facility], [place], [address], 02/07/2024 09:34:29 02/07/20 24 02/07/2024 urina lysis , dipst ick Appearance Cloudy Not Available [facility] [address] [facility], [place], [address], 02/07/2024 09:34:29 02/07/20 24 02/07/2024 urina lysis , dipst ick Color Dark Yellow Not Available [facility] [address] [facility], [place], [address], 02/07/2024 09:34:29 Result Notes None recorded. 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 Procedures Surgical History Date Name Laterality Status Provider Name and Address Organization Details Recorded Time Eye Surgery completed [employer]. 07/22/2022 10:43:47 Unlisted px femur/knee completed [employer]. 07/22/2022 10:43:57 Imaging Results None recorded. Procedure Notes None recorded. Medical Equipment None Reported. Allergies Allergen ID Allergen Name Allergen Category Reaction Reaction Severity Criticality Documentation Date Start Date Code Code System Note Provider Name and Address Organization Details Recorded Time 80004 sulfur medicatio n Not available Not available Not available 06/23/2022 40816 RxNorm Yarely bourne, [employer] 3 08:31:41 Medications Name Sig Start [...] Updated DateTime 4 179.07 cm 28 kg/m2 52869.2 9 g 97.9 [degF] 78 /min 98 % 98 % 112/68 mm[Hg] [employer]. 4 09:10:24 Date Recorded Body height Body mass index (BMI) Body weight Body temperature Heart rate Oxygen saturation Oxygen saturation in Arterial blood by Pulse oximetry Provider Name and Address Organization Details Last Updated DateTime 4 179.07 cm 27.4 kg/m2 03228.9 2 g 97.6 [degF] 69 /min 97 % 97 % [employer]. 4 10:30:01 Date Recorded Body height Body mass index (BMI) Body weight Body temperature Heart rate Oxygen saturation Oxygen saturation in Arterial blood by Pulse oximetry Systolic And Diastolic Provider Name and Address Organization Details Last Updated DateTime 3 179.07 cm 27.9 kg/m2 35555.7 g 97.6 [degF] 80 /min 98 % 98 % 136/86 mm[Hg] [employer]. 3 09:50:07 Date Recorded Body height Body mass index (BMI) Body weight Body temperature Heart rate Oxygen saturation Oxygen saturation in Arterial blood by Pulse oximetry Provider Name and Address Organization Details Last Updated DateTime 4 179.07 cm 27.7 kg/m2 52931.1 g 97.5 [degF] 84 /min 97 % 97 % [employer]. 4 09:33:51 Date Recorded Body height Body mass index (BMI) Body weight Body temperature Heart rate Oxygen saturation Oxygen saturation in Arterial blood by Pulse oximetry Systolic And Diastolic Provider Name and Address Organization Details Last Updated DateTime 3 179.07 cm 27.9 kg/m2 75441.7 g 97.9 [degF] 77 /min 97.6 % 97.6 % 132/82 mm[Hg] [employer]. 09:44:10 Social History Question Answer Notes LastModified by Organizat ion Details LastModified Time Tobacco Smoking Status Never Smoker Yarely bourne, [employer] 11/23/2022 08:30:47 Do You Have An Advance Directive? No Information not available 08/07/2022 Is Your Home Air Conditioned? Yes Information not available 08/07/2022 Are You Blind Or Do You Have Difficulty Seeing? Yes Wears Glasses Information not available 08/07/2022 What Is Your Level Of Caffeine Consumption? Occasional Information not available 01/12/2023 Are You A Caregiver? No Information not available 08/07/2022 What Type Of Washery Engineer Do You Use? None Information not available [...] not available 07/01/2023 [facility] 08/07/2022 Do You Have A Medical Power Of Research And Development Scientist? No Information not available 08/07/2022 What Was [...] not available 07/22/2022 Are you able to walk independently without assistance or assistive devices? [employer] Information not available 07/22/2022 Do you have difficulty doing errands alone? No [employer] Information not available 07/22/2022 Are you able to care for yourself independently? Yes Information not available 07/22/2022 Do you have difficulty dressing, bathing, grooming, or toileting? No Information not available 07/22/2022 What is your exercise level? Occasional Information not available 07/22/2022 Mental Status Question Answer Note LastModified by Organizat ion Details LastModified Time Do you feel stressed (tense, restless, nervous, or anxious, or unable to sleep at night)? [id number] [employer] Information not available 07/22/2022 Do you have difficulty concentrating, remembering or making decisions? No [employer] Information n ot available 07/22/2022 Family History Relationship Description Onset Age of this Age Resolved Age Notes LastModified by Organization Details LastModified Time Unspecified Relation Family history of malignant neoplasm [email or web address] Not available 2022 08:30:29 Unspecified Relation Family history of diabetes mellitus type 2 [email or web address] Not available 2022 08:30:34 Medical History Condition Response Allergies (Food, seasonal, environmental ) Y Allergies/Hayfever Y Hypertension Y Asthma Y Immunizations Vaccine Type Date Status Note Provider Nam e and Address Organization Details Recorded Time pneumococcal polysaccharide PPV23 8 completed Yarely bourne [employer] 09/16/2022 09:17:05 Influenza, high-dose, quadrivalent, PF 0 completed Yarely bourne [employer] 09/16/2022 09:17:05 COVID-19, mRNA, LNP-S, PF, 30 mcg/0.3 mL dose 1 completed Yarely bourne [employer] 09/16/2022 09:17:05 Hep A, adult 9 completed Yarely bourne [employer] 09/16/2022 09:17:05 Influenza, high-dose, trivalent, PF 9 completed Yarely [employer], [employer] 09/16/2022 09:17:05 Hep A, adult 8 completed [employer] null, [employer] 09/16/2022 09:17:05 zoster recombinant 8 completed [employer], [employer] 09/16/2022 09:17:05 Influenza, high-dose, quadrivalent, PF 2 completed [employer], [employer], [employer]. 09/16/2022 09:17:05 Pneumococcal conjugate PCV 13 7 completed [employer], [employer] 09/16/2022 09:17:05 COVID-19, mRNA, LNP-S, PF, 30 mcg/0.3 mL dose 1 completed [employer], [employer] 09/16/2022 09:17:05 COVID-19, mRNA, LNP-S, PF, 30 mcg/0.3 mL dose 1 completed [employer]. 09/16/2022 09:17:05 Past Encounters Encounter ID Performer Location Encounter Start Date Encounter Closed Date Diagnosis/Indication Diagnosis SNOMED-CT Code Diagnosis ICD10 Code Diagnosis IMO Codes Diagnosis Note [id number] Nancy Anderson PA-C [employer] [place] [id number] 07/22/2022 10:24:49 07/23/2022 09:13:53 Viral upper respiratory tract infection 953445087 J06.9 Continue current allergy medication s. Reassured patient lungs are clear. F/u if new or worsening symptoms. Body mass index 25-29 - overweight 797873712 Z68.29 healthy diet and regular aerobic exercise program Tobacco non-user [id number] 001 49860 Z13.89 [id number] Nancy Anderson PA-C [employer] [place] [id number] 8 08/07/2022 11:01:10 08/13/2022 10:16:28 Acute otitis media 0275635 H65.01 Start zithromax. Nasal saline rinses, humidifier and continue current medication s. Body mass index 25-29 - overweight 231574305 Z68.29 healthy diet and regular aerobic exercise program Tobacco non-user [id number] 001 08772 Z13.89 [id number] Nancy Anderson PA-C [employer] [address] 8 08/14/2022 09:15:29 08/20/2022 12:00:16 Acute maxillary sinusitis 56705612 J01.00 Increase fluids, Tylenol for fever or pain, and humidifier , continue Flonase nasal spray [id number] Nancy Anderson PA-C [employer] [facility] [place] [address] 3 09/01/2022 10:05:25 09/02/2022 07:35:25 Viral gastroenteritis 328873914 A08.4 soft bland diet for next 2-3 days, keep hydrated, rest, and Tylenol for fever or pain. F/u in3 days if not improved. [id number] Nancy Anderson PA-C [employer] [place] [address] 3 09/16/2022 09:09:43 09/16/2022 11:58:06 Nausea and vomiting 14781476 R11.2 clear liquids for next 24 hours followed by BRAT diet advancing as tolerated. If symptoms fail to improve or worsen needs to f/u with PCP for evaluation . Tobacco non-user [id number] 001 89575 Z13.89 Body mass index 25-29 - overweight 068299714 Z68.29 healthy diet and regular aerobic exercise program [id number] Nancy Anderson PA-C [employer] [employer] [facility] [place] [address] 8 11/20/2022 09:36:26 11/23/2022 11:40:31 Acute maxillary sinusitis 70402095 J01.00 Increase fluids, Tylenol for fever or pain, and humidifier , continue Flonase nasal spray and antihistam ine. F/u in 5-7 days if not improved. 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 Body mass index 25-29 - overweight 238223545 Z68.29 healthy diet and regular aerobic exercise program Tobacco non-user [id number] 001 84452 Z13.89 [id number] Nancy Anderson PA-C [facility] y [address] [place], [place] [id number] 3 07/01/2023 09:40:52 07/01/2023 10:53:44 Viral upper respiratory tract infection 451513196 J06.9 Continue current allergy medication s and may try Clorecedin for congestion . Reassured patient lungs are clear. F/u in 3-5 days if fever or bodyaches occur new or worsening symptoms. Body mass index 25-29 - overweight 755713590 Z68.29 healthy diet and regular aerobic exercise program Tobacco non-user [id number] 001 86988 Z13.89 [id number] Nancy Anderson PA-C [facility] [address] 3 10/19/2023 09:03:43 10/19/2023 12:25:30 Acute upper respiratory infection 19628155 J06.9 Rx for Augmentin 875mg as prescribed . Continue Chlorecide n for congestion . Humidifier . F/u in 5-7 days if not improved. Body mass index 25-29 - overweight 419704314 Z68.29 healthy diet and regular aerobic exercise program Tobacco non-user [id number] 001 81802 Z13.89 [id number] Nancy Anderson PA-C [facility] y [address] [place] [address] 11/22/2023 10:29:02 11/25/2023 12:04:41 Acute maxillary sinusitis 79265726 J01.00 Antibiotic s as prescribed . Increase fluids, Tylenol for fever or pain, and humidifier , continue Flonase nasal spray and antihistam ine F/u in 5-7 days if not improved. Candidiasis of mouth 797 43241 B37.0 Explained nature of illness to patient. Recommend removing dentures nightly. F/u in 2 weeks if symptoms persist or worsen Body mass index 25-29 - overweight 988444413 Z68.29 healthy diet and regular aerobic exercise program Tobacco non-user [id number] 001 93364 Z13.89 [id number] Nancy Anderson PA-C [facility] y [address] [place], [place] [address] [address] 02/07/2024 09:32:47 02/10/2024 15:03:50 Acute urinary tract infection 887643662 N39.0 Cipro as prescribed . Tylenol for pain or fever. Increase fluids avoiding soda. F/u in7-10 days for recheck, sooner if needed. Body mass index 25-29 - overweight 109988501 Z68.29 healthy diet and regular aerobic exercise program Tobacco non-user 5322572 001 23871 Z13.89 Health Concerns Section Related Observation LastModified by Organization Detai ls LastModified Time None Recorded Concern Status LastModified by Organization Details LastModified Time None Recorded Advance Directives Directive N: Payers Insurance Date Sequence Insurance Name Policy Number Policy Ar[place]ula Covered Member ID Ar[place] Member ID Guarantor Name 02/23/2024 1 [place] [id number] Toan Bearden II [id number] Toan Bearden 02/07/2024 [place] [employer] [facility] Toan Beardne [id number] Toan Bearden 02/07/2024 2 [place] Toan Bearden [id number] Toan Bearden Notes Date Note Type Note Provider Name and Address Organization Details Recorded Time 01/13/20 23 text/htm l 67 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 Reviewed PMH, medications, and surgeries with patient. Most recently had shunt placed for hydrocephalus one month ago which has returned to normal activity including driving. Denies MVA or traffic violations since last exam 1 year ago. Nancy Anderson PA-C [address] [place], [address], [employer], [employer]. 01/13/2023 13:16:35 07/01/20 23 text/htm l Sinusitis/AllergyReported by PatientHPIFor quality, patient reportscongested. For context, patient reportsrecent sick contactsbut reportsno recent upper respiratory infection(son-in-law has covid). For associated symptoms, patient reportscough __but reportsno fever,no nausea or vomiting,no headache, andno sore throat. For location, patient reportsmaxillary. For severity, patient reportsmild. For onset/timing, patient reportsgradual onset,initially started 3days ago, andprogressively worse over last 1days. For alleviating factors, patient reportsnasal steroid flonaseandantihistamine fexofenadine. For aggravating factors, patient reportsallergies are active. For risk factors, patient reportsno current smoking or tobacco use. Nancy Anderson PA-C [address] [place], [address], [employer], [employer]. 07/01/2023 10:30:23 10/19/19 24 text/htm l Sinusitis/AllergyReported by PatientHPIFor quality, patient reportscongestedandcolored phlegm. For associated symptoms, patient reportssinus pain foreheadbut reportsno fever,no cough,no nausea or vomiting,no headache, andno sore throat. For risk factors, patient reportshistory of smoking. For location, patient reportsmaxillary. For severity, patient reportsmild. For onset/timing, patient reportsgradual onset,initially started 6days ago, andprogressively worse over last 2days. For context, patient reportsno recent upper respiratory infection. For aggravating factors, patient reportscold weather. For alleviating factors, (taking amoxicillin 500mg twice a day for past 5 days). Nancy Anderson PA-C [address] [place], [address], [employer], [employer]. 10/19/2023 10:21:38 11/22/19 24 text/htm l Sinusitis/AllergyReported by PatientHPIFor quality, patient reportscongestedandcolored phlegm. For context, patient reportsrecent sick contactsbut reportsno recent upper respiratory infection. For associated symptoms, patient reportsnasal discharge from both nostrils,sinus pain forehead, andthick phlegm in throatbut reportsno fever,no cough,no nausea or vomiting, andno sore throat. For location, patient reportsmaxillary. For severity, patient reportsmild. For onset/timing, patient reportsgradual onset,initially started 1weeks ago, andprogressively worse over last 1days. For alleviating factors, patient reportsnasal steroid flonaseandantihistamine loratadine. For aggravating factors, patient reportscold weather. For risk factors, patient reportsno current smoking or tobacco use. Nancy Anderson PA-C [address] [place], [address], [employer] 11/23/2023 18:28:12 02/07/20 24 text/htm l Lower Urinary Tract Symptoms (LUTS)Reported by PatientHPIFor associated symptoms, patient reportsurgency,frequency, anddysuriabut reportsno abdominal pain,no flank pain,no low back pain,no chills,no fever,no constipation,no diarrhea,no nausea, andno vomiting. For location, patient reportsbladder. For quality, patient reportspressureandloss of function. For severity, patient reportsworseningandmild. For onset/timing, patient reportsspontaneous. For duration, patient reportsacute. For context, patient reportsdenies excessive fluid intakeanddenies excessive caffeine intake(increased frequency, burning without hematuria or flank pain). Nancy Anderson PA-C [address] [place] [address], [address], [employer], [employer]. 02/07/2024 10:12:10
--- OUTSIDE RECORDS SUMMARY | 2025-07-18 12:47 | XMS_ITS | Clinical Summary ---
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 Farm 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 Device Identifier Shelf Expiration Date Model / Serial / Lot Kt Grft Bone Inf Sm - [id number] Implanted:Qty: 1 on 11/10/2019 by Carlito Acevedo MD at [facility] Implant Spine Lumbar [employer] 06/17/2021 [id number] / / [id number] Byron Peek 6.85n36yh - [id number] Implanted:Qty: 1 on 11/10/2019 by Carlito Acevedo MD at [facility] Implant Spine Lumbar [employer] 01/20/2024 [id number] / / [id number] Byron Peek 6.46f88qj - [id number] Implanted:Qty: 1 on 11/10/2019 by Carlito Acevedo MD at [facility] Implant Spine Lumbar [employer] 01/20/2024 [id number] / / [id number] Paste Dbm [employer] [facility] - [id number] - [id number] Implanted:Qty: 1 on 11/10/2019 by Carlito Acevedo MD at [facility] Implant Spine Lumbar [employer] 05/24/2021 [id number] / [id number] / Paste Dbm [employer] [employer] 1c - [id number] - [id number] Implanted:Qty: 1 on 11/10/2019 by Carlito Acevedo MD at [facility] Implant Spine Lumbar [employer] 05/24/2021 [id number] / [id number] / Scrw Blu Cdh Legacy Mas Sheets 6.5x45mm - [id number] Implanted:Qty: 1 on 11/10/2019 by Carlito Acevedo MD at [facility] Implant Spine Lumbar [employer] 05/09/2024 [id number] / / [id number] Scrw Blu Cdh Legacy Sheets 6.5x50mm - [id number] Implanted:Qty: 1 on 11/10/2019 by Carlito Acevedo MD at [facility] Implant Spine Lumbar [employer] 06/15/2024 [id number] / / [id number] Scrw Blu Cdh Legacy Sheets 6.5x50mm - [id number] Implanted:Qty: 1 on 11/10/2019 by Carlito Acevedo MD at [facility] Implant Spine Lumbar [employer] 06/13/2024 [id number] / / [id number] Scrw Blu Cdh Legacy Mas Sheets 6.5x45mm - [id number] Implanted:Qty: 1 on 11/10/2019 by Carlito Acevedo MD at [facility] Implant Spine Lumbar [employer] 03/17/2022 [id number] / / [id number] Scrw Peek Ext Or Extrnl Hex - [id number] Implanted:Qty: 4 on 11/10/2019 by Carlito Acevedo MD at [facility] Implant Spine Lumbar [employer] [id number] / / N/A Cage Wave D 6d 72b51ac - [id number] Implanted:Qty: 2 on 11/10/2019 by Carlito Acevedo MD at [facility] Implant Spine Lumbar [employer] 01/11/2027 [id number] / / [id number] 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 Plan / Payer (Ef fective 2018-Present) Name:Toan Bearden II Relation to Subscriber:Self Name:Toan Bearden II Payer ID:[id number] (NAIC) Type:Not on file Address: [address] [place] [id number] MEDICARE A & B Advance Directives * CPR (Attempt to Resuscitate) (Latest Code Status on File) Date Activated Date Inactivated Comments 11/10/2019 1:05 PM 11/16/2019 6:02 PM Question Answer Comments Code Status (Patient has no pulse and is not breathing): CPR (Attempt to Resuscitate) Medical Interventions (Patie nt has pulse or is breathing): Full Level Of Support Discussed With: Patient Care Teams Warehouse Picker Relationship Specialty Start Date End Date Cristopher Gray MD [address] [facility] [address] [place] [address] PCP - General Internal Medicine 07/02/20
--- OUTSIDE RECORDS SUMMARY | 2025-07-18 12:47 | XMS_ITS | Clinical Summary ---
Author Organization [facility] Address [address] [place] [id number] Care Team Providers Care Manager Shop Name Role Phone Cristopher Gray MD Primary Care Provider [phone] Allergies Active Allergy Reactions Criticality Noted Date [...] 0 Active ergocalciferol (ERGOCALCIFEROL ) 1.25 MG (87587 UT) capsule TAKE 1 CAPSULE BY MOUTH [...] SDOH Screening 10/18/2024 Influenza Vaccine (#1) 2025 RSV 50+ and (1 - 1 -dose 75+ series) 01/25/2028 Haemophilus Influenzae Type B (Hib) Vaccine Aged [...] patient's age to complete this topic Insurance [facility] [place] [address] Care Teams Manager Shop Relationship Specialty Start Date End Date Cristopher Gray MD [address] [place] [address] [facility] [place] [address] PCP - General Internal Medicine 02/19/21
[2025-07-18 13:46] LABS: C-Reactive Protein 6.9 mg/L (0-4)
== END 2025-07-18 23:59 | disposition home or self-care (01) ==
LOC: LAB 12:40
PROVIDERS: PCP Internal Medicine; Visit Provider Internal Medicine Pulmonary Disease
DX: J84.9 Interstitial pulmonary disease, unspecified (principal); Z12.5 Encounter for screening for malignant neoplasm of prostate
CPT/HCPCS: 36415; 85651; 86140; G0103

== ENCOUNTER 2025-09-11 12:26 | Outpatient (CLI) | payer BC, MEDICARE, SELFPAY ==
--- OUTSIDE RECORDS SUMMARY | 2025-09-11 12:30 | XMS_ITS | Encounter Summary ---
Author Organization Healthcare Address [address] [place] [address] Care Team Providers Care Tso Name Role Phone Humberto Peralta MD Primary Care Provider [phone] Cristopher Gray MD Primary Care Provider [phone] Latanya Becker Unavailable [phone] Saima Esparza MD Unavailable [phone] Encounter Details Date Type Department Care Team (Late Contact Info) Description 04/03/2022 Orders Only External Location [address] [place] [address] Saima Esparza MD [address] [place], [place] [id number] Social History Tobacco Use Types Packs/Day Years [...] Visit [place] [facility] [address] [place] [address] Latanya Becker PA [address] [place] [address] 11/27/2025 11:30 AM EST Office Visit [place] [facility] [address] [place] [address] Dionna Koenig DO [address] [place] [address] documented as of this encounter [...] on filedocumented in this encounter Care Teams Tso Relationship Specialty Start Date End Date Humberto Peralta MD [address] [place] [address] PCP - General 02/28/21 12/02/22 Cristopher Gray MD [address] [facility] [address] [place] [address] PCP - General 12/14/22 Latanya Becker PA [id number] [place] [address] Physician Case Picker Neurosurgery 05/03/23 Saima Esparza MD [address] [place] [address] Referring Physician 05/03/23 documented as of this encounter
--- OUTSIDE RECORDS SUMMARY | 2025-09-11 12:30 | XMS_ITS | Data Portability ---
Author Organization [facility] Address [address] [place] [address] Care Team Providers Care Sugar Drier Name Role Phone TOPHER DEMPSEY Primary Care Provider [phone] Assessment Encounter Date Assessment Date Assessment LastModified by Organization Details LastModified Time 02/07/2024 02/07/2024 Patient presents with symptoms of UTI. Results of dipstick were positive for UTI. Advised to drink clear fluids, Tylenol for pain and take prescribed medications as instructed. Patient encouraged to follow up within 1 week if not improving. [email or web address] Not available 02/07/2024 10:09:39 Plan of Treatment Reminders Order Date Submit Date Provider Last Modified By Organization Details Last Modified Time Details Appointments None recorded. Lab urinalysis, dipstick 2023 024 [email or web address] 5 [facility], [address] [place], [address], 4 10:11:37 urinalysis, dipstick 2022 023 [email or web address] 5 [facility], [address] [place], [address], 3 09:07:18 Referral None recorded. Procedures None recorded. Surgeries None recorded. Imaging None recorded. Medication Orders ciprofloxac in 500 mg tablet 2023 024 [facility], [address] [place], [address], 4 10:11:38 nystatin 100,000 unit/mL oral suspension 2023 024 [facility], [address] [place], [address], 4 13:17:59 Zithromax Z-Reji 250 mg tablet 2023 024 [facility], [address] [place], [address], 4 09:34:12 Augmentin 875 mg-125 mg tablet 2023 024 [facility], [address] [place], [address], 10:30:18 Patient TargetsNo targets recorded. Patient Instructions Encounter Date Encounter Id Patient Instructions Last Modified By Organization Details Last Modified Time 07/01/2023 [id number] nutrition [email or web address] Not available 06/18 10:29:48 exercise [email or web address] Not available 07/01 10:29:48 10/19/2023 [id number] eating healthy foods: care instructions [email or web address] Not available 10/19/2023 10:20:51 exercise [email or web address] Not available 10/19 10:20:51 11/22/2023 [id number] eating healthy foods: care instructions Not available 11/23/2023 18:27:37 exercise [email or web address] Not available 11/23 18:27:37 02/07/2024 [id number] eating healthy foods: care instructions [email or web address] Not available 02/07/2024 10:11:35 walking for exercise: care instructions [email or web address] Not available 02/07/2024 10:11:35 Reason for Referral None Reported. Results Created Date Observation Date Name Description Value Unit Range Abnormal Flag Note LastModifiedBy Organization Detail LastModifiedTime 01/13/20 23 01/12/2023 urina lysis , dipst ick Leukocytes Negati ve Not Available [facility] [address] [place], [address], 01/12/2023 09:52:20 01/13/20 23 01/12/2023 urina lysis , dipst ick Nitrite negati ve Not Available [facility] [address] [place] [address], [address], 01/12/2023 09:52:20 01/13/20 23 01/12/2023 urina lysis , dipst ick Urobilinogen .2 Not Available [facility] [address] [place] [address], [address], 01/12/2023 09:52:20 01/13/20 23 01/12/2023 urina lysis , dipst ick Protein Negati ve Not Available [facility] [address] [place] [address], [address], 01/12/2023 09:52:20 01/13/20 23 01/12/2023 urina lysis , dipst ick pH 6.0 Not Available [facility] [address] [place] [address], [address], 01/12/2023 09:52:20 01/13/20 23 01/12/2023 urina lysis , dipst ick Blood Negati ve Not Available [facility] [address] [place] [address], [address], 01/12/2023 09:52:20 01/13/20 23 01/12/2023 urina lysis , dipst ick Specific Chelan 1.030 Not Available [facility] [facility] [address] [place] [address], [address], 01/12/2023 09:52:20 01/13/20 23 01/12/2023 urina lysis , dipst ick Ketone Negati ve Not Available [facility] [address] [place] [address], [address], 01/12/2023 09:52:20 01/13/20 23 01/12/2023 urina lysis , dipst ick Bilirubin Negati ve Not Available [facility] [address] [facility], [place], [address], 01/12/2023 09:52:20 01/13/20 23 01/12/2023 urina lysis , dipst ick Glucose Negati ve Not Available [facility] [address] [facility], [place], [address], 01/12/2023 09:52:20 01/13/20 23 01/12/2023 urina lysis , dipst ick Appearance Clear Not Available [facility] [place] [address] [place] [address], [address], 01/12/2023 09:52:20 01/13/20 23 01/12/2023 urina lysis , dipst ick Color Dark Yellow Not Available [facility] [address] [place] [address], [place], [address], 01/12/2023 09:52:20 02/07/20 24 02/07/2024 urina lysis , dipst ick Leukocytes Modera te Not Available [facility] [address] [facility], [place], [address], 02/07/2024 09:34:29 02/07/20 24 02/07/2024 urina lysis , dipst ick Nitrite negati ve Not Available [facility] [address] [facility], [place], [address], 02/07/2024 09:34:29 02/07/20 24 02/07/2024 urina lysis , dipst ick Urobilinogen .2 Not Available [facility] [address] [facility], [place], [address], 02/07/2024 09:34:29 02/07/20 24 02/07/2024 urina lysis , dipst ick Protein Negati ve Not Available [facility] [address] [facility], [place], [address], 02/07/2024 09:34:29 02/07/20 24 02/07/2024 urina lysis , dipst ick pH 5.0 Not Available [facility] [address] [facility], [place], [address], 02/07/2024 09:34:29 02/07/20 24 02/07/2024 urina lysis , dipst ick Blood Small Not Available [facility] [address] [facility], [place], [address], 02/07/2024 09:34:29 02/07/20 24 02/07/2024 urina lysis , dipst ick Specific Chelan 1.030 Not Available [facility] [address] [facility], [place], [address], 02/07/2024 09:34:29 02/07/20 24 02/07/2024 urina lysis , dipst ick Ketone Negati ve Not Available [facility] [address] [facility], [place], [address], 02/07/2024 09:34:29 02/07/20 24 02/07/2024 urina lysis , dipst ick Bilirubin Negati ve Not Available [facility] [address] [facility], [place], [address], 02/07/2024 09:34:29 02/07/20 24 02/07/2024 urina lysis , dipst ick Glucose Negati ve Not Available [facility] [address] [facility], [place], [address], 02/07/2024 09:34:29 02/07/20 24 02/07/2024 urina lysis , dipst ick Appearance Cloudy Not Available [facility] [address] [facility], [place], [address], 02/07/2024 09:34:29 02/07/20 24 02/07/2024 urina lysis , dipst ick Color Dark Yellow Not Available [facility] [address] [facility], [place], [address], 02/07/2024 09:34:29 Result Notes None recorded. Problems Name Problem SNOMED Code Status Onset Date Resolution Date Notes Provider Name and Address Organization Details Recorded Time [employer] license medical examination Active 2021 Problem Code: Z02.4; Problem Code Type: ICD-10; Not Available [facility] 22:35:39 Allergic rhinitis caused by pollen 86044638 Active 2021 Problem Code: J30.1; Problem Code Type: ICD-10; Not Available [facility] 22:35:40 Problem Notes None recorded. Procedures Surgical History Date Name Laterality Status Provider Name and Address Organization Details Recorded Time Eye Surgery completed [employer]. 07/22/2022 10:43:47 Unlisted px femur/knee completed [employer]. 07/22/2022 10:43:57 Imaging Results None recorded. Procedure Notes None recorded. Medical Equipment None Reported. Allergies Allergen ID Allergen Name Allergen Category Reaction Reaction Severity Criticality Documentation Date Start Date Code Code System Note Provider Name and Address Organization Details Recorded Time 06860 sulfur medicatio n Not available Not available Not available 06/23/2022 84223 RxNorm Yarely bourne, [email or web address] 3 08:31:41 Medications Name Sig Start [...] weight Body temperature Heart rate Oxygen saturation Systolic And Diastolic Provider Name and Address Organization Details Last Updated DateTime 4 179.07 cm 28 kg/m2 48066.2 9 g 97.9 [degF] 78 /min 98 % 112/68 mm[Hg] [employer]. 4 09:10:24 Date Recorded Body height Body mass index (BMI) Body weight Body temperature Heart rate Oxygen saturation Provider Name and Address Organization Details Last Updated DateTime 4 179.07 cm 27.4 kg/m2 95629.9 2 g 97.6 [degF] 69 /min 97 % [employer]. 4 10:30:01 Date Recorded Body height Body mass index (BMI) Body weight Body temperature Heart rate Oxygen saturation Systolic And Diastolic Provider Name and Address Organization Details Last Updated DateTime 3 179.07 cm 27.9 kg/m2 13476.7 g 97.6 [degF] 80 /min 98 % 136/86 mm[Hg] [employer]. 3 09:50:07 Date Recorded Body height Body mass index (BMI) Body weight Body temperature Heart rate Oxygen saturation Provider Name and Address Organization Details Last Updated DateTime 4 179.07 cm 27.7 kg/m2 17046.1 g 97.5 [degF] 84 /min 97 % [employer]. 4 09:33:51 Date Recorded Body height Body mass index (BMI) Body weight Body temperature Heart rate Oxygen saturation Systolic And Diastolic Provider Name and Address Organization Details Last Updated DateTime 3 179.07 cm 27.9 kg/m2 74215.7 g 97.9 [degF] 77 /min 97.6 % 132/82 mm[Hg] [employer]. 3 09:44:10 Social History Question Answer Notes LastModified by Organizat ion Details LastModified Time Tobacco Smoking Status Never Smoker Yarely bourne [email or web address] 11/23/2022 08:30:47 Do You Have An [...] Information not available 08/07/2022 What Type Of Social Services Manager Do You Use? None Information not available [...] available 07/22/2022 Who Is Your Employer? [employer] Information not available 07/22/2022 Have There Been [...] Do You Have A Medical Power Of Prison Librarian? No Information not available 08/07/2022 What Was [...] anxious, or unable to sleep at night)? [id number] Information not available 07/22/2022 Do you have [...] available 2022 08:30:34 Medical History Condition Response Allergies/Hayfever Y Allergies (Food, seasonal, environmental ) Y Hypertension Y Asthma Y Immunizations Vaccine Type Date Status Note Provider Nam e and Address Organization Details Recorded Time pneumococcal polysaccharide PPV23 8 completed Yarely Ushamarita [employer]. 09/16/2022 09:17:05 Influenza, high-dose, quadrivalent, PF 0 completed [employer], [employer] 09/16/2022 09:17:05 COVID-19, mRNA, LNP-S, PF, 30 mcg/0.3 mL dose 1 completed Yarelyteresita Rivera [employer], [employer] 09/16/2022 09:17:05 Hep A, adult 9 completed Yarely Nicole [employer], [employer] 09/16/2022 09:17:05 Influenza, high-dose, trivalent, PF 9 completed Yarely Nicole [employer], [employer] 09/16/2022 09:17:05 Hep A, adult 8 completed Yarely bourne, [employer], [employer] 09/16/2022 09:17:05 zoster recombinant 8 completed Yarely bourne, [email or web address] 09/16/2022 09:17:05 Influenza, high-dose, quadrivalent, PF 2 completed Yarely bourne, [employer] 09/16/2022 09:17:05 Pneumococcal conjugate PCV 13 7 completed Yarely bourne, [employer] 09/16/2022 09:17:05 COVID-19, mRNA, LNP-S, PF, 30 mcg/0.3 mL dose 1 completed Yarely bourne, [employer] 09/16/2022 09:17:05 COVID-19, mRNA, LNP-S, PF, 30 mcg/0.3 mL dose 1 completed Yarely bourne, [employer] 09/16/2022 09:17:05 Past Encounters Encounter ID Performer Location Encounter Start Date Encounter Closed Date Diagnosis/Indication Diagnosis SNOMED-CT Code Diagnosis ICD10 Code Diagnosis IMO Codes Diagnosis Note [id number] Nancy Anderson PA-C [employer] [facility] [place] [phone] 3 07/22/2022 10:24:49 07/23/2022 09:13:53 Viral upper respiratory tract infection 832579238 J06.9 Continue current allergy medication s. Reassured patient lungs are clear. F/u if new or worsening symptoms. Body mass index 25-29 - overweight 359057580 Z68.29 healthy diet and regular aerobic exercise program Tobacco non-user [id number] 001 57505 Z13.89 [id number] Nancy Anderson PA-C [employer] [facility] [place] [id number] 08/07/2022 11:01:10 08/13/2022 10:16:28 Acute otitis media 2144700 H65.01 Start zithromax. Nasal saline rinses, humidifier and continue current medication s. Body mass index 25-29 - overweight 226546716 Z68.29 healthy diet and regular aerobic exercise program Tobacco non-user [id number] 001 38133 Z13.89 [id number] Nancy Anderson PA-C [facility] [address] [address] 08/14/2022 09:15:29 08/20/2022 12:00:16 Acute maxillary sinusitis 62326951 J01.00 Increase fluids, Tylenol for fever or pain, and humidifier , continue Flonase nasal spray [id number] Nancy Anderson PA-C [place] [address] 3 09/01/2022 10:05:25 09/02/2022 07:35:25 Viral gastroenteritis 833315328 A08.4 soft bland diet for next 2-3 days, keep hydrated, rest, and Tylenol for fever or pain. F/u in3 days if not improved. [id number] Nancy Anderson PA-C [place] [address] 3 09/16/2022 09:09:43 09/16/2022 11:58:06 Nausea and vomiting 50517942 R11.2 clear liquids for next 24 hours followed by BRAT diet advancing as tolerated. If symptoms fail to improve or worsen needs to f/u with PCP for evaluation . Tobacco non-user 3028201 001 59708 Z13.89 Body mass index 25-29 - overweight 833498582 Z68.29 healthy diet and regular aerobic exercise program [id number] Nancy Anderson PA-C [facility] [address] [address] 11/20/2022 09:36:26 11/23/2022 11:40:31 Acute maxillary sinusitis 51643457 J01.00 Increase fluids, Tylenol for fever or pain, and humidifier , continue Flonase nasal spray and antihistam ine. F/u in 5-7 days if not improved. 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 Body mass index 25-29 - overweight 241648985 Z68.29 healthy diet and regular aerobic exercise program Tobacco non-user 7444214 001 04079 Z13.89 [id number] Nancy Anderson PA-C [facility] y [address] [place] [id number] 3 07/01/2023 09:40:52 07/01/2023 10:53:44 Viral upper respiratory tract infection 473781558 J06.9 Continue current allergy medication s and may try Clorecedin for congestion . Reassured patient lungs are clear. F/u in 3-5 days if fever or bodyaches occur new or worsening symptoms. Body mass index 25-29 - overweight 387731345 Z68.29 healthy diet and regular aerobic exercise program Tobacco non-user 4992504 001 61477 Z13.89 [id number] Nancy Anderson PA-C [facility] [address] [place] [address] 10/19/2023 09:03:43 10/19/2023 12:25:30 Acute upper respiratory infection 15858921 J06.9 Rx for Augmentin 875mg as prescribed . Continue Chlorecide n for congestion . Humidifier . F/u in 5-7 days if not improved. Body mass index 25-29 - overweight 881065037 Z68.29 healthy diet and regular aerobic exercise program Tobacco non-user 8486852 001 75949 Z13.89 [id number] Nancy Anderson PA-C [facility] y [address] [place] [address] 11/22/2023 10:29:02 11/25/2023 12:04:41 Acute maxillary sinusitis 28023318 J01.00 Antibiotic s as prescribed . Increase fluids, Tylenol for fever or pain, and humidifier , continue Flonase nasal spray and antihistam ine F/u in 5-7 days if not improved. Candidiasis of mouth 797 36436 B37.0 Explained nature of illness to patient. Recommend removing dentures nightly. F/u in 2 weeks if symptoms persist or worsen Body mass index 25-29 - overweight 843207661 Z68.29 healthy diet and regular aerobic exercise program Tobacco non-user 8507238 001 72212 Z13.89 [id number] Nancy Anderson PA-C [facility] [employer] y [address] [place] [address] 02/07/2024 09:32:47 02/10/2024 15:03:50 Acute urinary tract infection 426431924 N39.0 Cipro as prescribed . Tylenol for pain or fever. Increase fluids avoiding soda. F/u in7-10 days for recheck, sooner if needed. Body mass index 25-29 - overweight 496724033 Z68.29 healthy diet and regular aerobic exercise program Tobacco non-user 8718932 001 22754 Z13.89 Health Concerns Section Related Observation LastModified by Organization Detai ls LastModified Time None Recorded Concern Status LastModified by Organization Details LastModified Time None Recorded Advance Directives Directive N: Payers Insurance Date Sequence Insurance Name Policy Number Policy Arambula Covered Member ID Arambula Member ID Guarantor Name 02/23/2024 1 [place] [facility] [id number] Toan Grissom Suleiman II [id number] Toan Grissom Suleiman 02/07/2024 [place] [employer] [facility] Toan Grissom Suleiman [id number] Toan Grissom Suleiman 02/07/2024 2 [place] Toan Grissom Suleiman [id number] 2 Toan Grissom Suleiman Notes Date Note Type Note Provider [...] 1 year ago. Nancy Anderson PA-C [address] [place], [address], [employer] 01/13/2023 13:16:35 07/01/20 23 text/htm l Sinusitis/AllergyReported [...] smoking or tobacco use. Nancy Anderson PA-C [address] [place] [address], [address], [employer] 07/01/2023 10:30:23 10/19/19 24 text/htm l Sinusitis/AllergyReported [...] past 5 days). Nancy Anderson PA-C [address] [place], [address], [employer] 10/19/2023 10:21:38 11/22/19 24 text/htm l Sinusitis/AllergyReported [...] reportsno current smoking or tobacco use. Nancy Anderosn PA-C [address] [place] [address], [address], [employer] 11/23/2023 18:28:12 02/07/20 24 text/htm l Lower [...] hematuria or flank pain). Nancy Anderson PA-C [address] [place], [address], [employer] 02/07/2024 10:12:10
--- OUTSIDE RECORDS SUMMARY | 2025-09-11 12:30 | XMS_ITS | Clinical Summary ---
Author Organization [facility] Address [address] [place] [address] Care Team Providers Care Executive Sous Chef Name Role Phone Cristopher Gray MD Primary Care Provider [phone] Allergies Active Allergy Reactions Criticality Noted Date [...] 08/04/2019, 10/07/2018 Medical Devices Implanted Type Area Hair Spring Cutter Device Identifier Shelf Expiration Date Model / Serial / Lot Kt Grft Bone Inf Sm - [id number] Implanted:Qty: 1 on 11/10/2019 by Carlito Acevedo MD at [facility] Implant Spine Lumbar [employer] 06/17/2021 [id number] / / [id number] Byron Peek 6.35i10md - [id number] Implanted:Qty: 1 on 11/10/2019 by Carlito Acevedo MD at [facility] Implant Spine Lumbar [employer] 01/20/2024 [id number] / / [id number] Byron Peek 6.87f57hp - [id number] Implanted:Qty: 1 on 11/10/2019 by Carlito Acevedo MD at [facility] Implant Spine Lumbar [employer] 01/20/2024 [id number] / / [id number] Paste Dbm [employer] [facility] - [id number] - [id number] Implanted:Qty: 1 on 11/10/2019 by Carlito Acevedo MD at [facility] Implant Spine Lumbar [employer] 05/24/2021 [id number] / [id number] / Paste Dbm [employer]s 1c - [id number] - [id number] Implanted:Qty: 1 on 11/10/2019 by Carlito Acevedo MD at [facility] Implant Spine Lumbar [employer] 05/24/2021 [id number] / [id number] / Scrw Blu Cdh Legacy Mas Sheets 6.5x45mm - [id number] Implanted:Qty: 1 on 11/10/2019 by Carlito Acevedo MD at [facility] Implant Spine Lumbar [employer] 05/09/2024 [id number] / / [id number] Scrw Blu Cdh Legacy Sheets 6.5x50mm - [id number] Implanted:Qty: 1 on 11/10/2019 by Carlito Acevedo MD at [facility] Implant Spine Lumbar [employer] 06/15/2024 [id number] / / [id number] Scrw Blu Cdh [employer] 6.5x50mm - [id number] Implanted:Qty: 1 on 11/10/2019 by Carlito Acevedo MD at [facility] Implant Spine Lumbar [employer] 06/13/2024 [id number] / / [id number] Scrw Blu Cdh [employer] Sheets 6.5x45mm - [id number] Implanted:Qty: 1 on 11/10/2019 by Carlito Acevedo MD at [facility] Implant Spine Lumbar [employer] 03/17/2022 [id number] / / [id number] Scrw Peek Ext Or Extrnl Hex - [id number] Implanted:Qty: 4 on 11/10/2019 by Carlito Acevedo MD at [facility] Implant Spine Lumbar [employer] [id number] / / N/A Cage Wave D 6d 63n63vs - [id number] Implanted:Qty: 2 on 11/10/2019 by Carlito Acevedo MD at [facility] Implant Spine Lumbar [employer] 01/11/2027 [id number] / / [id number] 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 Plan / Payer (Ef fective 2018-Present) Name:Toan Bearden II Relation to Subscriber:Self Name:Toan Bearden II Payer ID:[id number] (NAIC) Type:Not on file Address: [address] [place] [id number] MEDICARE A & B Advance Directives * CPR (Attempt to Resuscitate) (Latest Code Status on File) Date Activated Date Inactivated Comments 11/10/2019 1:05 PM 11/16/2019 6:02 PM Question Answer Comments Code Status (Patient has no pulse and is not breathing): CPR (Attempt to Resuscitate) Medical Interventions (Patie nt has pulse or is breathing): Full Level Of Support Discussed With: Patient Care Teams Executive Sous Chef Relationship Specialty Start Date End Date Cristopher Gray MD [address] [facility] [address] [place] [address] PCP - General Internal Medicine 07/02/20
--- OUTSIDE RECORDS SUMMARY | 2025-09-11 12:30 | XMS_ITS | Encounter Summary ---
Author Organization Healthcare Address [address] [place] [address] Care Team Providers Care Budget Technician Name Role Phone Humberto Peralta MD Primary Care Provider [phone] Cristopher Gray MD Primary Care Provider [phone] Latanya Becker Unavailable [phone] Saima Esparza MD Unavailable [phone] Encounter Details Date Type Department Care Team (Late st Contact Info) Description 04/12/2022 Orders Only External Location [address] [place] [address] Provider, External Social History Tobacco Use Types [...] Description 10/01/2025 12:00 PM EST Office Visit [place] [facility] [address] [place] [address] Latanya Becker, PA [address] [place] [address] 11/27/2025 11:30 AM EST Office Visit [place] [facility] [address] [place] [address] Arya Dionna A, DO [address] [place] [address] documented as of this encounter [...] on filedocumented in this encounter Care Teams Budget Technician Relationship Specialty Start Date End Date Humberto Peralta MD [address] [place] [address] PCP - General 02/28/21 12/02/22 Cristopher Gray MD [address] [facility] [address] [place] [address] PCP - General 12/14/22 Latanya Becker PA [address] [facility] [address] [place] [address] Physician Firer [employer] Neurosurgery 05/03/23 Saima Esparza MD [address] [place], [place] [id number] Referring Physician 05/03/23 documented as of this encounter
--- OUTSIDE RECORDS SUMMARY | 2025-09-11 12:30 | XMS_ITS | Clinical Summary ---
Author Organization Healthcare Address [address] [place] [address] Care Team Providers Care Manager Of Software Development Name Role Phone Cristopher Gray MD Primary Care Provider [phone] Latanya Becker Unavailable [phone] Saima Esparza MD Unavailable [phone] Allergies Active Allergy Reactions Criticality Noted [...] Description 10/01/2025 12:00 PM EST Office Visit [facility] [address] [place] [address] Latanya Becker, GARRISON [address] [place] [address] 11/27/2025 11:30 AM EST Office Visit [facility] [address] [place] [address] Dionna Koenig DO [address] [place] [id number] Health Maintenance Due Date Last Done Comments [facility]-Hepatitis C Screening 1955 [facility]-Medicare Annual Wellness (AWV) 1955 [facility]-Infant/Child/Adol SDOH Screenings 1955 [facility]- SDOH Screenings 1971 [facility]-Adult SDOH Screenings 1971 [facility]-DTaP,Tdap,and Td Vaccines (1 - Tdap) 01/25/1972 CT Colonography 1998 Colonoscopy 1998 [facility]-DNA 1998 FIT 1998 FOBT 1998 Sigmoidoscopy 1998 [facility]-Colorectal Cancer Screening 1998 [facility]-Zoster Vaccines (2 of 2) 12/02/2018 10/07/2018 [id number] Vaccine ( season) 2025 08/20/2021, 03/24/2021, 03/02/2021 [facility]-Depression Screening 10/05/2025 10/05/2024, 09/17 [facility]-Hepatitis A Vaccines Aged Out 06/14/2019, 08/20 No longer eligible based on patient's age to complete this topic [facility]-Pneumococcal Vaccine: 50+ Years Completed 04/05/2024, 07/22/2018, 01/28/2017 [facility]-RSV Vaccine: 60+ Years or Completed 07/06/2024 [facility]-Obesity Intervention Completed 025, 10/05/2024, 10/05/2024, Additional history exists [facility]-Influenza Vaccine Completed 08/15/2025 , 08/07/2024, 07/30/2023, Additional history exists HPV Vaccines Aged Out [...] this topic Medical Devices Implanted Type Area Commercial Lines Underwriter Device Identifier Shelf Expiration Date Model / Serial / Lot Certas Plus Inline Siphon - [id number] Implanted:Qty: 1 on 12/24/2022 by Jerrell Jarrett MD at [facility] [id number] 08/17/2027 [id number] / / [id number] Catheter Antibiotic Str Vent - [id number] Implanted:Qty: 1 on 12/24/2022 by Jerrell Jarrett MD at [facility] [email or web address] 09/16/2023 [id number] / / [id number] [place] [address] Advance Directives * Full Code (Latest Code Status on File) Date Activated Date Inactivated Comments 12/24/2022 9:13 AM 12/25/2022 6:51 PM Question Answer Comments Patient has decision-making capacity? Yes Care Teams Manager Of Software Development Relationship Specialty Start Date End Date Cristopher Gray MD [address] [facility] [address] [place] [address] PCP - General 12/14/22 Latanya Becker PA [address] [phone] Physician [employer]ental [employer] [facility] Neurosurgery 05/03/23 Saima Esparza MD [address] [place] [address] Referring Physician 05/03/23
--- OUTSIDE RECORDS SUMMARY | 2025-09-11 12:30 | XMS_ITS | Data Portability ---
Author Organization [facility] YARON [place] [facility] Address [address] [place] [address] Care Team Providers Care News Video Editor Name Role Phone LUIS ARMANDO LEE Urologist DONG FOURNIER Fourdrinier Tender Assessment Encounter Date Assessment Date Assessment LastModified [...] available 8 09:21:32 culture, urine 2017 018 [facility], [address] [place] [address], [address], 8 09:59:40 Referral None recorded. Procedures None recorded. Surgeries None recorded. Imaging None recorded. Medication Orders None recorded. Patient TargetsNo targets recorded. Patient Instructions Encounter Date Encounter Id Patient Instructions Last Modified By Organization Details Last Modified Time 06/22/2019 [id number] blood in the urine: care instructions [facility] – Not available 06/22/2019 09:22:18 06/25/2020 [id number] blood in the urine: care instructions [facility] – Not available 06/25/2020 09:20:38 Reason for Referral None Reported. Results Created Date Observation Date Name Description Value Unit Range Abnormal Flag Note LastModifiedBy Organization Detail LastModifiedTime 02/22/20 18 02/21/2018 urina lysis , dipst ick, auto Unknown Analyte Yellow Not Available [facility] Surgery Schedule [address] [place], [address], 02/21/2018 15:02:56 02/22/20 18 02/21/2018 urina lysis , dipst ick, auto Unknown Analyte Clear Not Available [facility] Schedule [address] [place], [address], 02/21/2018 15:02:56 02/22/20 18 02/21/2018 urina lysis , dipst ick, auto Unknown Analyte 1.015 Not Available [facility] Surgery Schedule [address] [place], [address], 02/21/2018 15:02:56 02/22/20 18 02/21/2018 urina lysis , dipst ick, auto Unknown Analyte 6.5 Not Available [facility] Surgery Schedule [address] [place], [address], 02/21/2018 15:02:56 02/22/20 18 02/21/2018 urina lysis , dipst ick, auto Unknown Analyte 25 Kiko/ul Trace Not Available [facility] Surgery Schedule [address] [place], [address], 02/21/2018 15:02:56 02/22/20 18 02/21/2018 urina lysis , dipst ick, auto Unknown Analyte Negati ve Not Available [facility] Surgery Schedule [address] [place], [address], 02/21/2018 15:02:56 02/22/20 18 02/21/2018 urina lysis , dipst ick, auto Unknown Analyte Trace Not Available [facility] Surgery Schedule [address] [place], [address], 02/21/2018 15:02:56 02/22/20 18 02/21/2018 urina lysis , dipst ick, auto Unknown Analyte Normal Not Available [facility] Surgery Schedule [address] [place], [address], 02/21/2018 15:02:56 02/22/20 18 02/21/2018 urina lysis , dipst ick, auto Unknown Analyte Negati ve Not Available [facility] Surgery Schedule [address] [place], [address], 02/21/2018 15:02:56 02/22/20 18 02/21/2018 urina lysis , dipst ick, auto Unknown Analyte 4 mg/dl Not Available [facility] Surgery Schedule [address] [place], [address], 02/21/2018 15:02:56 02/22/20 18 02/21/2018 urina lysis , dipst ick, auto Unknown Analyte 1 mg/dl (+) Not Available [facility] Surgery Schedule [address] [place], [address], 02/21/2018 15:02:56 02/22/20 18 02/21/2018 urina lysis , dipst ick, auto Unknown Analyte 50 Issac/ul Not Available [facility] Surgery Schedule [address] [place], [address], 02/21/2018 15:02:56 02/22/20 18 02/21/2018 urina lysis , dipst ick, auto Unknown Analyte Clean Catch Not Available [facility] Surgery Schedule [address] [place], [address], 02/21/2018 15:02:56 02/22/20 18 02/21/2018 urina lysis , dipst ick, auto Unknown Analyte Automa ludin Not Available [facility] Surgery Schedule [address] [place], [address], 02/21/2018 15:02:56 03/17/20 18 03/17/2018 cultu re, urine results [facility] e: CCUR Colle cted: 03/17 09:09 Site: Joselitoi shena : 03/17 11:26 URINE SCREE N(CUL TURE) FINAL 03/21 11:53 03/21 No growt h day 4. Not Available [facility] Laboratory [address] [place] [address], [address], 03/21/2018 11:53:16 03/17/20 18 03/17/2018 urina lysis , dipst ick, auto Unknown Analyte Yellow Not Available [facility]rology [address] [place], [address], 03/17/2018 09:03:16 03/17/20 18 03/17/2018 urina lysis , dipst ick, auto Unknown Analyte Clear Not Available [facility]rology [address] [place] [address], [address], 03/17/2018 09:03:16 03/17/20 18 03/17/2018 urina lysis , dipst ick, auto Unknown Analyte 1.010 Not Available [facility] [address] [place] [address], [address], 03/17/2018 09:03:16 03/17/20 18 03/17/2018 urina lysis , dipst ick, auto Unknown Analyte 7.0 Not Available [facility] [address], [address], 03/17/2018 09:03:16 03/17/20 18 03/17/2018 urina lysis , dipst ick, auto Unknown Analyte 500 Kiko/ul (++) Not Available [address], [address], 03/17/2018 09:03:16 03/17/20 18 03/17/2018 urina lysis , dipst ick, auto Unknown Analyte Negati ve Not Available [facility] [address], [address], 03/17/2018 09:03:16 03/17/20 18 03/17/2018 urina lysis , dipst ick, auto Unknown Analyte Negtiv e Not Available [facility] [address], [address], 03/17/2018 09:03:16 03/17/20 18 03/17/2018 urina lysis , dipst ick, auto Unknown Analyte Normal Not Available [facility] [address] [place], [address], 03/17/2018 09:03:16 03/17/20 18 03/17/2018 urina lysis , dipst ick, auto Unknown Analyte Not Available [facility] [address] [place], [address], 03/17/2018 09:03:16 03/17/20 18 03/17/2018 urina lysis , dipst ick, auto Unknown Analyte Negati ve Not Available [facility] [address] [place] [address], [address], 03/17/2018 09:03:16 03/17/20 18 03/17/2018 urina lysis , dipst ick, auto Unknown Analyte Normal Not Available [facility] [address] [place] [address], [address], 03/17/2018 09:03:16 03/17/20 18 03/17/2018 urina lysis , dipst ick, auto Unknown Analyte Negati ve Not Available [facility] [address] [place] [address], [address], 03/17/2018 09:03:16 03/17/20 18 03/17/2018 urina lysis , dipst ick, auto Unknown Analyte 250 Issac/ul Not Available [facility] [address] [place], [address], 03/17/2018 09:03:16 03/17/20 18 03/17/2018 urina lysis , dipst ick, auto Unknown Analyte Clean Catch Not Available [facility] [address] [place], [address], 03/17/2018 09:03:16 03/17/20 18 03/17/2018 urina lysis , dipst ick, auto Unknown Analyte Automa ludin Not Available [facility] [address] [place], [address], 03/17/2018 09:03:16 06/21/20 18 06/21/2018 urina lysis , dipst ick, auto Unknown Analyte Yellow Not Available [facility] [address] [place], [address], 06/21/2018 09:05:06 06/21/20 18 06/21/2018 urina lysis , dipst ick, auto Unknown Analyte Clear Not Available [facility] [address] [place], [address], 06/21/2018 09:05:06 06/21/20 18 06/21/2018 urina lysis , dipst ick, auto Unknown Analyte 1.025 Not Available [facility] [address] [place], [address], 06/21/2018 09:05:06 06/21/20 18 06/21/2018 urina lysis , dipst ick, auto Unknown Analyte 5.0 Not Available [facility] [address] [place], [address], 06/21/2018 09:05:06 06/21/20 18 06/21/2018 urina lysis , dipst ick, auto Unknown Analyte Negati ve Not Available [facility] [address] [place] [address], [address], 06/21/2018 09:05:06 06/21/20 18 06/21/2018 urina lysis , dipst ick, auto Unknown Analyte Negati ve Not Available [facility] [address] [place], [address], 06/21/2018 09:05:06 06/21/20 18 06/21/2018 urina lysis , dipst ick, auto Unknown Analyte Negtiv e Not Available [facility] [address] [place], [address], 06/21/2018 09:05:06 06/21/20 18 06/21/2018 urina lysis , dipst ick, auto Unknown Analyte Normal Not Available [facility] [address] [place], [address], 06/21/2018 09:05:06 06/21/20 18 06/21/2018 urina lysis , dipst ick, auto Unknown Analyte Negati ve Not Available [facility] [address] [place] [address], [address], 06/21/2018 09:05:06 06/21/20 18 06/21/2018 urina lysis , dipst ick, auto Unknown Analyte 1 mg/dl Not Available [facility] [address] [place] [address], [address], 06/21/2018 09:05:06 06/21/20 18 06/21/2018 urina lysis , dipst ick, auto Unknown Analyte 1 mg/dl (+) Not Available [facility] [address] [place] [address], [address], 06/21/2018 09:05:06 06/21/20 18 06/21/2018 urina lysis , dipst ick, auto Unknown Analyte Negati ve Not Available [facility] [address] [place] [address], [address], 06/21/2018 09:05:06 06/21/20 18 06/21/2018 urina lysis , dipst ick, auto Unknown Analyte Clean Catch Not Available [facility] [address] [place] [address], [address], 06/21/2018 09:05:06 06/21/20 18 06/21/2018 urina lysis , dipst ick, auto Unknown Analyte Automa ludin Not Available [facility] [address] [place] [address], [address], 06/21/2018 09:05:06 06/22/2006/22/2019 PSA, serum or plasm a prostate specific [...] absen ce of disea se. Not Available [facility] [address] [place] [address], [address], 06/22/2019 09:44:31 06/22/2006/22/2019 urina lysis , micro scopi c RBC, urine 3-10 0-2/hp f abnormal Not Available [facility] [address] [place] [address], [address], 06/22/2019 11:39:55 06/22/2006/22/2019 urina lysis , micro scopi c squamous epi. cells OCCASI ONAL 0-5/hp f normal Not Available [facility] [address] [place] [address], [address], 06/22/2019 11:39:55 06/22/2006/22/2019 urina lysis , dipst ick, auto Unknown Analyte Yellow Not Available [facility] [place], [address], 06/22/2019 09:08:28 06/22/2006/22/2019 urina lysis , dipst ick, auto Unknown Analyte Clear Not Available [facility] [place], [address], 06/22/2019 09:08:28 06/22/2006/22/2019 urina lysis , dipst ick, auto Unknown Analyte 1.020 Not Available [facility] [place], [address], 06/22/2019 09:08:28 06/22/2006/22/2019 urina lysis , dipst ick, auto Unknown Analyte 5.0 Not Available [facility] [place], [address], 06/22/2019 09:08:28 06/22/2006/22/2019 urina lysis , dipst ick, auto Unknown Analyte Negati ve Not Available [facility] [address] [place] [address], [address], 06/22/2019 09:08:28 06/22/2006/22/2019 urina lysis , dipst ick, auto Unknown Analyte Negati ve Not Available [facility] [address] [place] [address], [address], 06/22/2019 09:08:28 06/22/2006/22/2019 urina lysis , dipst ick, auto Unknown Analyte Negtiv e Not Available [facility] [address] [place] [address], [address], 06/22/2019 09:08:28 06/22/2006/22/2019 urina lysis , dipst ick, auto Unknown Analyte Normal Not Available [facility] [address] [place] [address], [address], 06/22/2019 09:08:28 06/22/2006/22/2019 urina lysis , dipst ick, auto Unknown Analyte Negati ve Not Available [facility] [address] [place] [address], [address], 06/22/2019 09:08:28 06/22/2006/22/2019 urina lysis , dipst ick, auto Unknown Analyte Normal Not Available [facility] [address] [place] [address], [address], 06/22/2019 09:08:28 06/22/2006/22/2019 urina lysis , dipst ick, auto Unknown Analyte Negati ve Not Available [facility] [address] [place], [address], 06/22/2019 09:08:28 06/22/2006/22/2019 urina lysis , dipst ick, auto Unknown Analyte 50 Issac/ul Not Available [facility] [address] [place] [address], [address], 06/22/2019 09:08:28 06/22/2006/22/2019 urina lysis , dipst ick, auto Unknown Analyte Clean Catch Not Available [facility] [address] [place] [address], [address], 06/22/2019 09:08:28 06/22/2006/22/2019 urina lysis , dipst ick, auto Unknown Analyte Automa ludin Not Available [facility] [address] [place] [address], [address], 06/22/2019 09:08:28 06/26/2006/26/2019 creat inine , blood creatinine, fs mg/dL M 0.7-1. 3 F0.6-1 .1 Not Available [facility] [address] [place] [address], [address], 06/26/2019 09:15:52 07/07/2007/07/2019 bun (bloo d urea nitro gen), serum or plasm a blood urea nitrogen 17 mg/dL 6-20 normal Not Available [facility] Laboratory [address] [place] [address], [address], 07/07/2019 12:34:39 07/07/2007/07/2019 creat inine , serum or plasm a creatinine 1.15 mg/dL 0.70-1 .25 normal Not Available [facility] [address] [place] [address], [address], 07/07/2019 12:34:40 07/19/2007/19/2019 cytol ogy, non-g yneco logic al, unspe cifie d speci men cytology SEE BELOW Depar tment of Patho logy Medic al Cytol ogy Repor t NAME: CARLITA THRASHER PATH. :NS-1 [id number] Copie s to: SOURC E OF [...] 15:09 Page 1 of 1 Not Available [facility] [address] [place] [address], [address], 07/21/2019 15:10:54 07/19/2007/19/2019 urina lysis , dipst ick, auto Unknown Analyte Yellow Not Available [facility] Surgery Schedule [address] [place], [address], 07/19/2019 13:40:38 07/19/2007/19/2019 urina lysis , dipst ick, auto Unknown Analyte Clear Not Available [facility] Surgery Schedule [address] [place], [address], 07/19/2019 13:40:38 07/19/2007/19/2019 urina lysis , dipst ick, auto Unknown Analyte 1.020 Not Available [facility] Surgery Schedule [address] [place], [address], 07/19/2019 13:40:38 07/19/2007/19/2019 urina lysis , dipst ick, auto Unknown Analyte 5.0 Not Available [facility] Surgery Schedule [address] [place], [address], 07/19/2019 13:40:38 07/19/2007/19/2019 urina lysis , dipst ick, auto Unknown Analyte Negati ve Not Available [facility] Surgery Schedule [address] [place], [address], 07/19/2019 13:40:38 07/19/20 19 07/19/2019 urina lysis , dipst ick, auto Unknown Analyte Negati ve Not Available [facility] Surgery Schedule [address] [place], [address], 07/19/2019 13:40:38 07/19/2007/19/2019 urina lysis , dipst ick, auto Unknown Analyte Negtiv e Not Available [facility] Surgery Schedule [address] [place], [address], 07/19/2019 13:40:38 07/19/2007/19/2019 urina lysis , dipst ick, auto Unknown Analyte Normal Not Available [facility] Surgery Schedule [address] [place] [address], [address], 07/19/2019 13:40:38 07/19/20 19 07/19/2019 urina lysis , dipst ick, auto Unknown Analyte Negati ve Not Available [facility] Surgery Schedule [address] [place] [address], [address], 07/19/2019 13:40:38 07/19/20 19 07/19/2019 urina lysis , dipst ick, auto Unknown Analyte Normal Not Available [facility] Surgery Schedule [address] [place], [address], 07/19/2019 13:40:38 07/19/20 19 07/19/2019 urina lysis , dipst ick, auto Unknown Analyte Negati ve Not Available [facility] Surgery Schedule [address] [place] [address], [address], 07/19/2019 13:40:38 07/19/20 19 07/19/2019 urina lysis , dipst ick, auto Unknown Analyte 50 Issac/ul Not Available [facility] Surgery Schedule [address] [place], [address], 07/19/2019 13:40:38 07/19/20 19 07/19/2019 urina lysis , dipst ick, auto Unknown Analyte Clean Catch Not Available [facility] Surgery Schedule [address] [place], [address], 07/19/2019 13:40:38 07/19/20 19 07/19/2019 urina lysis , dipst ick, auto Unknown Analyte Automa ludin Not Available [facility] Surgery Schedule [address] [place], [address], 07/19/2019 13:40:38 06/25/2006/25/2020 urina lysis , dipst ick Unknown Analyte Straw Not Available [facility] [address] [place] [address], [address], 06/25/2020 08:58:13 06/25/2006/25/2020 urina lysis , dipst ick Unknown Analyte Clear Not Available [facility] [address] [place], [address], 06/25/2020 08:58:13 06/25/2006/25/2020 urina lysis , dipst ick Unknown Analyte 1.030 Not Available [facility] [place], [address], 06/25/2020 08:58:13 06/25/2006/25/2020 urina lysis , dipst ick Unknown Analyte 1.003 - 1.035 Not Available [facility] [address] [place], [address], 06/25/2020 08:58:13 06/25/2006/25/2020 urina lysis , dipst ick Unknown Analyte 5.0 Not Available [facility] [address] [place], [address], 06/25/2020 08:58:13 06/25/2006/25/2020 urina lysis , dipst ick Unknown Analyte 5.0 - 8.0 Not Available [facility] [address] [place] [address], [address], 06/25/2020 08:58:13 06/25/2006/25/2020 urina lysis , dipst ick Unknown Analyte Negati ve Not Available [address], [address], 06/25/2020 08:58:13 06/25/2006/25/2020 urina lysis , dipst ick Unknown Analyte Negati ve Not Available [address], [address], 06/25/2020 08:58:13 06/25/2006/25/2020 urina lysis , dipst ick Unknown Analyte Negati ve Not Available [address], [address], 06/25/2020 08:58:13 06/25/2006/25/2020 urina lysis , dipst ick Unknown Analyte Negati ve Not Available [address], [address], 06/25/2020 08:58:13 06/25/2006/25/2020 urina lysis , dipst ick Unknown Analyte Negati ve Not Available [address], [address], 06/25/2020 08:58:13 06/25/2006/25/2020 urina lysis , dipst ick Unknown Analyte Negati ve - Trace Not Available [address], [address], 06/25/2020 08:58:13 06/25/2006/25/2020 urina lysis , dipst ick Unknown Analyte Normal Not Available [facility] [place], [address], 06/25/2020 08:58:13 06/25/2006/25/2020 urina lysis , dipst ick Unknown Analyte Normal Not Available [facility] [address] [place], [address], 06/25/2020 08:58:13 06/25/2006/25/2020 urina lysis , dipst ick Unknown Analyte Negati ve Not Available [facility] [address] [place], [address], 06/25/2020 08:58:13 06/25/2006/25/2020 urina lysis , dipst ick Unknown Analyte Negati ve Not Available [facility] [address] [place] [address], [address], 06/25/2020 08:58:13 06/25/2006/25/2020 urina lysis , dipst ick Unknown Analyte Normal Not Available [facility] [address] [place], [address], 06/25/2020 08:58:13 06/25/2006/25/2020 urina lysis , dipst ick Unknown Analyte Normal - 1mg/dl Not Available [facility] [address] [place], [address], 06/25/2020 08:58:13 06/25/2006/25/2020 urina lysis , dipst ick Unknown Analyte Negati ve Not Available [facility] [address] [place], [address], 06/25/2020 08:58:13 06/25/2006/25/2020 urina lysis , dipst ick Unknown Analyte Negati ve Not Available [facility] [address] [place], [address], 06/25/2020 08:58:13 06/25/20 20 06/25/2020 urina lysis , dipst ick Unknown Analyte Negati ve Not Available [facility] [address], [address], 06/25/2020 08:58:13 06/25/20 20 06/25/2020 urina lysis , dipst ick Unknown Analyte Negati ve Not Available [address], [address], 06/25/2020 08:58:13 06/25/20 20 06/25/2020 urina lysis , dipst ick Unknown Analyte Clean Catch Not Available [address], [address], 06/25/2020 08:58:13 06/25/20 20 06/25/2020 urina lysis , dipst ick Unknown Analyte Visual Not Available [facility] [address], [address], 06/25/2020 08:58:13 07/07/2007/07/2019 CT, abdom en + pelvi s, w/wo contr ast [address] [address] Paticlarisa t Name: CARLITA Praveena Wilkinson Paticlarisa t : [birth year] 51 Paticlarisa t 4 Orderi [facility] er: LUIS ARMANDO GRANT OR EXAM DATE: 2018 EXAM: CT HEMATU [facility]OTOC [facility] AL INFORM ATION: [facility] tori ia. TECHNI QUE: Multip le axial CT images of the abdome n were obtain ed before and in the combin ed nephro graphi c and excret ory phases after a split bolus IV inject ion of Optira [id number] (1 x 100ml bottle [facility] [id number] [id number] ). Bowel was marked with [...] Bonilla MD on 019 1:53 PM [email or web address] [facility] [address] [place], [address], 07/10/2019 08:31:12 Result Notes Documentation Provider Name and Address Organization Details Recorded Time Ct, Abdomen + Pelvis, W/wo Contrast : [facility] [address] [place] [address] Patient Name: CARLITA BEARDEN Patient : 1955 Patient Ordering Provider: LUIS ARMANDO LEE EXAM DATE: 07/07/2019 EXAM: CT HEMATURIA PROTOCOL CLINICAL INFORMATION: Microhematuria. TECHNIQUE: Multiple axial CT images of the abdomen were obtained before and in the combined nephrographic and excretory phases after a split bolus IV injection of [id number] (1 x 100ml bottle [facility] [id number]). Bowel was marked with water. CT IVP [...] Interpreted By: Octavio Bonilla MD Marisolcherry Katamanda [facility] 07/10/2019 08:31:12 Problems Name Problem SNOMED Code Status Onset Date Resolution Date Notes Provider Name and Address Organization Details Recorded Time Lower urinary tract symptoms due to benign prostatic hypertrop hy 56532640293 101 Active 2014 From Automated Load;Prov ider: Luis Armando Lee;St atus: Active Not Available [facility] 6 07:50:29 Prostate specific antigen above reference range 455936485 Active 2014 From Automated Load;Prov ider: Luis Armando Lee;St atus: Active [facility] 6 07:50:29 Microscop ic hematuria 353541624 Active 2014 From Automated Load;Prov ider: Luis Armando Lee;St atus: Active Not Available [facility] 6 07:50:29 Acute non-suppu rative serous otitis media 666644991 Active 2015 From Automated Load;Prov ider: Dong Fournier;S tatus: Active Not Available [facility] 6 07:50:29 Conductiv e hearing loss 57099773 Active 2015 From Automated Load;Prov ider: Dong Fournier;S tatus: Active Not Available [facility] 6 07:50:29 Mixed conductiv e AND sensorine ural hearing loss 16388129 Active 2015 From Automated Load;Prov ider: Dong Fournier;S tatus: Active Not Available [facility] 7 06:42:18 Problem Notes None recorded. Procedures Surgical History Date Name Laterality Status Provider Name and Address Organization Details Recorded Time 0 Post Void Residual; Ultrasound completed Gunjan Kapadia [facility] 06/25/2020 09:08:12 9 Cystoscopy - male completed LUIS ARMANDO LEE MD [facility] [place], [address], [facility] 07/19/2019 14:20:36 9 Post Void Residual; Ultrasound completed Tahmina [facility] 06/22/2019 09:08:21 8 Post Void Residual; Ultrasound completed Xiomara Garibay [facility] 06/21/2018 09:08:03 8 Post Void Residual; Ultrasound completed Jacquie Kiser [facility] 03/17/2018 09:08:30 8 Uroflowmetry; Complex completed Tahmina [facility] 02/28/2018 09:30:39 8 Cystoscopy - male completed LUIS ARMANDO LEE MD [address] [facility] [place], [address], [facility] 02/21/2018 08:28:57 8 Post Void Residual; Ultrasound completed Lily Deans [facility] 02/01/2018 09:42:56 7 Post Void Residual; Ultrasound completed [facility] 08/03/2017 09:02:42 7 EXTRA CORPOREAL SHOCK WAVE LITHOTRIPSY (SURG) completed LUIS ARMANDO LEE MD [address] [place], [address], [facility] 03/22/2017 12:37:31 7 Post Void Residual; Ultrasound completed Bhargavi [facility] 01/25/2017 11:08:55 6 Post Void Residual; Catheter completed Bhargavi Ellison [facility] 10/15/2016 08:35:18 6 Audiogram completed RODRIGO ARRIOLA [address] [place], [address], [facility] 10/07/2016 10:20:39 Imaging Results None recorded. Procedure Notes None recorded. Medical Equipment None Reported. Allergies Allergen ID Allergen Name Allergen Category Reaction Reaction Severity Criticality Documentation Date Start Date Code Code System Note Provider Name and Address Organization Details Recorded Time 329668 Substance with sulfonami de structure and antibacte rial mechanism of action (substanc e) medicatio n Not available Not available Not available 09/11/20162010 78876 8003 SNOMED Comme nt: Creat ed By: Ailyn Rivas ated Date: 2010 1:02: 38 PM; Not Available [facility] 02:[facility]27 Medications Name Sig Start [...] (PF) 50 mcg/0.5 mL intramusc ular suspwisam leahy kit 06/25 completed Not Available Not Available Not Available Vitals Date Recorded Body height Body mass index (BMI) Body weight Provider Name and Address Organization Details Last Updated DateTime 03/17/2018 180.34 cm 27.2 kg/m2 95164.51 g Jacquie Kiser [facility] 03/17/2018 09:02:58 Date Recorded Body height Body mass index (BMI) Body weight Provider Name and Address Organization Details Last Updated DateTime 06/21/2018 180.34 cm 27.2 kg/m2 94360.51 g Xiomara Phoenix [facility] 06/21/2018 09:04:49 Date Recorded Body height Body mass index (BMI) Body weight Body temperature Provider Name and Address Organization Details Last Updated DateTime 06/22/2019 180.34 cm 27.2 kg/m2 31693.51 g 98 [degF] Tahmina Fragoso [facility] 06/22/2019 09:05:56 Date Recorded Body weight Body mass index (BMI) Body height Provider Name and Address Organization Details Last Updated DateTime 06/25/2020 12390.51 g 27.2 kg/m2 180.34 cm Gunjan Kapadia [facility] 06/25/2020 08:56:38 Social History Question Answer Notes LastModified by Organizat ion Details LastModified Time Tobacco Smoking Status Never Smoker Karen bourne [facility] 10/07/2016 09:19:00 How Much Tobacco Do You Chew? None [email or web address] Information not available 06/25/2020 What Was The Date Of Your Most Recent Tobacco Screening? 06/21/2018 Information n ot available 12/05/2019 How Much Tobacco Do You Smoke? No [email or web address] Information not available 06/25/2020 How Many Years Have You Smoked Tobacco? 0 [email or web address] Information not available 06/25/2020 Sex: Unknown Functional Status Question Answer Note LastModified by Organizat ion Details LastModified Time What is your level of alcohol consumption? Occasional [email or web address] Information not available 06/25/2020 Do you or have you ever used smokeless tobacco? Never used smokeless tobacco [email or web address] Information not available 06/25/2020 Do you or have you ever used e-cigarettes or vape? Never used electronic cigarettes Information not available 06/25/2020 Mental Status None recorded. Family History Nothing Reported. Medical History Condition Response High Cholesterol Y Hypertension Y Past Encounters Encounter ID Performer Location Encounter Start Date Encounter Closed Date Diagnosis/Indication Diagnosis SNOMED-CT Code Diagnosis ICD10 Code Diagnosis IMO Codes Diagnosis Note [id number] DONG FOURNIER MD [facility] [address] [place] [address] 1 10/07/2016 08:57:35 10/07/2016 12:06:38 Chronic serous otitis media 67655439 H65.[address] and patent. Hearing improved.a udiogram reviewed Acute sinusitis 74778550 J01.90 [id number] DONG FOURNIER MD [facility] [address] [place] [address] 1 10/07/2016 09:54:51 10/07/2016 10:21:42 Sensorineural hearing loss of bilateral ears 550580818 H90.3 [id number] LUIS ARMANDO LEE MD [facility]OLOGY [facility] [address] [place] [address] 1 10/15/2016 07:35:58 10/15/2016 09:12:15 Lower urinary tract symptoms due to benign prostatic hypertrophy 8457961216 9101 N40.1 Benign pro static hyperplasia 959987555 N40.1 Microscopic hematuria 19 1970083 R31.21 Incomplete emptying of urinary bladder 120126414 R39.14 [id number] LUIS ARMANDO LEE MD UROLOGY [facility] [address] [place] [address] 1 01/25/2017 10:48:50 01/25/2017 12:53:18 Benign prostatic hyperplasia with outflow obstruction 999563839 N40.1 Microscopic hematuria 19 5149587 R31.21 [id number] DONG FOURNIER MD [facility] [address] [place] [address] 1 01/25/2017 10:48:50 01/25/2017 12:53:18 Chronic serous otitis media 71163809 H65.[address] and patent. f/u 6 mo [id number] LUIS ARMANDO LEE MD UROLOGY [facility] [address] [place] [address] 1 03/08/2017 07:58:58 03/08/2017 09:23:26 Ureteric stone 74178124 N20.1 [id number] LUIS ARMANDO LEE MD UROLOGY [facility] [address] [place] [address] 1 04/01/2017 09:27:16 04/01/2017 10:33:05 Kidney stone 18244525 N20.0 [id number] LUIS ARMANDO LEE MD UROLOGY [facility] [address] [place] [address] 1 08/03/2017 08:41:11 08/03/2017 09:54:35 Benign prostatic hyperplasia with outflow obstruction 022241943 N40.1 Incomplete emptying of urinary bladder 977739584 R39.14 History of calculus of kidney 238645960 Z87.506 [id number] DONG FOURNIER MD [facility] [address] [place] [address] 1 08/11/2017 09:03:32 08/11/2017 09:36:45 Chronic serous otitis media 41483576 H65.23 both tubes extruded and tm's look fine. No fluid present. F/U prn [id number] LUIS ARMANDO LEE MD UROLOGY [facility] [address] [place] [address] 1 02/01/2018 09:03:07 02/01/2018 10:09:37 Benign prostatic hyperplasia with outflow obstruction 461411095 N40.1 Incomplete emptying of urinary bladder 525428985 R39.14 [id number] LUIS ARMANDO LEE MD SURGERY SCHEDULE [address] [place] [address] 1 02/21/2018 06:32:25 02/21/2018 06:32:56 [id number] LUIS ARMANDO LEE MD UROLOGY [facility] [address] [place] [address] 1 02/28/2018 09:08:03 03/01/2018 15:54:44 Lower urinary tract symptoms due to benign prostatic hypertrophy 7884630311 9101 N40.1 [id number] LUIS ARMANDO LEE MD UROLOGY [facility] [address] [place] [address] 1 03/17/2018 08:50:49 03/17/2018 09:35:44 Acute urinary tract infection 461828001 N39.0 Benign pro static hyperplasia with outflow obstruction 337864193 N40.1 Incomplete emptying of urinary bladder 146459758 R39.14 [id number] LUIS ARMANDO LEE MD UROLOGY [facility] [address] [place] [address] 1 06/21/2018 08:55:40 06/21/2018 09:57:45 Benign prostatic hyperplasia with outflow obstruction 233708576 N40.1 [id number] LUIS ARMANDO LEE MD UROLOGY [facility] [address] [place] [address] 1 06/22/2019 08:39:54 06/22/2019 09:24:17 Benign prostatic hyperplasia with outflow obstruction 963171841 N40.1 Blood in urine 24891477 R31.9 [id number] LUIS ARMANDO LEE MD SURGERY SCHEDULE [address] [place] [address] 1 07/19/2019 12:34:50 07/19/2019 12:36:34 [id number] LUIS ARMANDO LEE MD UROLOGY [facility] [address] [place] [address] 1 06/25/2020 08:51:24 06/25/2020 10:03:45 Benign prostatic hyperplasia with outflow obstruction 248873316 N40.1 Microscopic hematuria 19 2598651 R31.21 Health Concerns Section Related Observation LastModified by Organization Detai ls LastModified Time None Recorded Concern Status LastModified by Organization Details LastModified Time None Recorded Advance Directives Directive None Recorded Payers Insurance Date Sequence Insurance Name Policy Number Policy [place] Covered Member ID [place] Member ID Guarantor Name 06/21/2018 2 [facility] (MEDICARE REPLACEMENT/A DVANTAGE - PPO) [id number] Carlita Bearden [id number] Carlita Bearden 06/22/2020 2 [place] Carlita Bearden [id number] Carlita Bearden 06/25/2020 1 [place] [id number] Carlita Bearden II [id number] Carlita Bearden 04/22/2018 2 [place] Carlita Bearden [id number] Carlita Bearden Notes Date Note Type Note Provider Name and Address Organization Details Recorded Time 03/17/2018 text/html ROS as noted in the HPI Mr. Bearden returns today for follow-up of BPH with severe incomplete bladder emptying. He underwent greenlight laser vaporization of the prostate about 3 weeks ago. His preoperative residual was over 500 mL. He reports he is doing extremely well. He notes improved force of stream. No significant urgency frequency or dysuria. LUIS ARMANDO LEE MD [facility] [place], [address], [facility] 03/17/2018 09:22:08 06/21/2018 text/html ROS as noted in the HPI Mr. Bearden returns today for follow-up of BPH with severe incomplete bladder emptying. He underwent greenlight laser vaporization of the prostate in February. His preoperative residuals were over 500 mL. Overall he is very pleased. He has occasional mild postvoid dribbling. No dysuria or hematuria. LUIS ARMANDO LEE MD [facility] [place], [address], [facility] 06/21/2018 09:16:40 06/22/2019 text/html ROS as noted in the HPI Mr. Bearden returns today for follow-up of BPH with a history of severe incomplete bladder emptying. He underwent greenlight laser vaporization of the prostate in February 2018. He continues on Flomax and finasteride. Overall he is very pleased with his voiding. No significant nocturia decreased force of stream or straining to void. No hematuria. No dysuria. LUIS ARMANDO LEE MD [facility] [place], [address], [facility] 06/22/2019 09:22:52 06/25/2020 text/html ROS as noted in the HPI Mr. Bearden returns today for follow-up. He has a history of BPH with severe incomplete bladder emptying treated with greenlight laser in 2017. He continues on Flomax and finasteride. Overall he is very pleased with his voiding. He has occasional postvoid dribbling. No dysuria. No gross hematuria. He was evaluated for microscopic hematuria a year ago. MD Carlos Alberto [place], [address], [facility] 06/25/2020 09:21:17
--- OUTSIDE RECORDS SUMMARY | 2025-09-11 12:30 | XMS_ITS | Clinical Summary ---
Author Organization [facility] Address [address] [place] [address] Care Team Providers Care Horse Race Timer Name Role Phone Cristopher rGay MD Primary Care Provider [phone] Allergies Active Allergy Reactions Criticality Noted Date [...] 0 Active ergocalciferol (ERGOCALCIFEROL ) 1.25 MG (75385 UT) capsule TAKE 1 CAPSULE BY MOUTH [...] patient's age to complete this topic Insurance [facility] [place] [address] Care Teams Horse Race Timer Relationship Specialty Start Date End Date Cristopher Gray MD [address] [place] [address] [facility] [place] [id number] PCP - General Internal Medicine 02/19/21
[2025-09-11 13:30] VITALS: PULSE 70; PULSE 73
[2025-09-11] MEDS: ALBUTEROL 0.083% 2.5 MG/3 ML NEB IH (13:30)
== END 2025-09-11 23:59 | disposition home or self-care (01) ==
LOC: RT 12:27
PROVIDERS: PCP Internal Medicine; Visit Provider Internal Medicine Pulmonary Disease
DX: J44.9 Chronic obstructive pulmonary disease, unspecified (principal); R94.2 Abnormal results of pulmonary function studies
CPT/HCPCS: 94010; 94618; 94640